=== PATIENT | male | born 1955 | race Caucasian/White ===

== ENCOUNTER 2016-10-12 17:32 | Observation (INO) ==
[~2016-10-12 17:32] MED LIST: *HR* Propofol 200 MG/20 ML VIAL IVP ONE; Lidocaine -MPF 2% 5 ML VIAL INFILT ONE
[2016-10-12] MEDS ORDERED: 0.9 % Sodium Chloride 1,000 ML IVC ONE (18:00)
--- NOTE | 2016-10-12 18:10 | Emergency Department Note ---
Disposition Clinical Impression: Lactic acidosis, Leukocytosis GI bleed Qualifiers: GI bleed type/associated pathology: unspecified gastrointestinal hemorrhage type Qualified Code(s): K92.2 - Gastrointestinal hemorrhage, unspecified Disposition: Admitted As Inpatient Condition: Serious Referrals: Bryce Jones DO [Primary Care Provider] - Forms: ED Satisfaction Letter Time of Disposition: 20:12 SOB HPI - General Chief Complaint: ED Shortness of Breath/Dyspnea Stated Complaint: SHUBHAM/ Blood in stool Time Seen by Provider: 10/12/16 17:40 Source: patient Mode of arrival: ambulatory Limitations: no limitations Nursing Notes Reviewed: Yes Vital Signs Reviewed: Yes - History of Present Illness 61-year-old male with shortness of breath for the last day. Patient states that he has been worsening shortness of breath, cough and wheeze. Patient has a history of COPD. Patient also states that he was diaphoretic today. 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 Patient is also had a history of internal hemorrhoids. Patient denies chest pain abdominal pain, does not shortness of breath even with minimal exertion. Denies fevers chills or weight loss. Pt Subjective Complaint: shortness of breath Onset (ago): hour(s) - Related Data Home Medications Medication Instructions Recorded Confirmed Albuterol Sulfate [Albuterol 2 puff IH Q4HR PRN 03/16/16 09/21/16 Inhaler] Amlodipine Besylate 10 mg PO DAILY 03/16/16 09/21/16 Azelastine 0.1% Nasal [place] 1 spray NS BID 03/16/16 09/21/16 [Astelin] Budesonide/Formoterol 160/4.5 2 puff IH BIDR 03/16/16 09/21/16 [Symbicort 160/4.5] Cetirizine HCl [Zyrtec] 10 mg PO DAILY 03/16/16 09/21/16 ClonazePAM [Klonopin] 0.5 mg PO BID PRN 03/16/16 09/21/16 Docusate [Colace] 100 mg PO BID PRN 03/16/16 09/21/16 Ergocalciferol (VITAMIN D2) 400 unit PO DAILY 03/16/16 09/21/16 [Vitamin D] Esomeprazole Magnesium [Nexium] 40 mg PO BID 03/16/16 09/21/16 Fluticasone Propionate Nasal 100 mcg NS DAILY 03/16/16 09/21/16 [Flonase] Ketoconazole Shampoo [Nizoral 1 appl TP TID 03/16/16 09/21/16 Shampoo] Metoclopramide [Reglan] 10 mg PO BID 03/16/16 09/21/16 Polyethylene Glycol 3350 [MiraLAX] 17 gm PO DAILY 03/16/16 09/21/16 Psyllium Seed (with Sugar) 575 gm PO DAILY 03/16/16 09/21/16 [Metamucil Powder] Roflumilast [Daliresp] 500 mcg PO DAILY 03/16/16 09/21/16 Sodium Chloride [[place] Saline] 1 spray NS BID PRN 03/16/16 09/21/16 Albuterol Neb [Proventil Neb] 2.5 mg IH Q2-4H PRN 09/21/16 09/21/16 Previous Rx's Medication Instructions Recorded Levofloxacin [Levaquin] 500 mg PO DAILY #10 tablet 09/19/16 Azelastine 0.1% Nasal [place] 1 spray NS BID #1 bottle 09/30/16 [Astelin] GuaiFENesin ER [Mucinex] 1,200 mg PO BID PRN #40 tbbp.12hr 09/30/16 Metoprolol [Lopressor] 12.5 mg PO BID #30 tablet 09/30/16 Montelukast [Singulair] 10 mg PO HS #30 tablet 09/30/16 PredniSONE 10 mg PO DAILY #41 tablet 09/30/16 Allergies Allergy/AdvReac Type Severity Reaction Status Date / Time morphine Allergy Difficulty Verified 09/17/16 08:27 Breathing sulfamethoxazole Allergy Hives Verified 03/16/16 17:11 [From Bactrim] trimethoprim [From Bactrim] Allergy Hives Verified 03/16/16 17:11 aspirin AdvReac Nausea Verified 03/16/16 17:11 codeine AdvReac Nausea Verified 03/16/16 17:11 Review of Systems: A 14 point ROS was obtained and was negative except as per below or as documented in the HPI. Constitutional: Denies: fever, chills, weakness, weight change Eyes: Denies: eye pain, eye discharge, vision change ENT: Denies: ear pain, throat pain, hearing loss, epistaxis, congestion, Cardiovascular: Denies: chest pain, palpitations, dyspnea on exertion, edema, syncope Respiratory: cough, dyspnea, wheezes Denies: , hemoptysis, stridor Gastrointestinal: hematochezia Denies: abdominal pain, nausea, vomiting. diarrhea, constipation, hematemesis, Genitourinary: Denies: urgency, dysuria, frequency, hematuria Musculoskeletal: Denies: back pain, neck pain, arthralgia, myalgia Integumentary: Denies: rash, abrasion, lesions Neurological: Denies: headache, weakness, numbness, paresthesias, confusion, abnormal gait Psychiatric: Denies: anxiety, depression, suicidal thoughts, homicidal thoughts , Endocrine: Denies: fatigue Hematological/Lymphatic: Denies: easy bleeding, easy bruising Allergic/Immunologic: Denies: facial swelling, urticaria All systems ED: reviewed and negative except as stated. Past Medical History - Past Medical History Attestation: Yes The following information was validated with the patient. Source: patient Medical history: Reports: COPD, GERD, hypertension Surgical history: Reports: herniorrhaphy, other Psychiatric history: Reports: anxiety, depression - Social History Smoking Status: Former smoker Smokeless Tobacco Status: No Alcohol use: Reports: rarely Drug use: Reports: none Physical Exam General: alert and oriented, in NAD, appears stated age, is pleasant and cooperative to exam Head: NCAT, no lesions Eyes: sclera anicteric, conjunctiva normal, PERRLA bilaterally, EOMI Bilaterally Ears: normal inspection, external ear wnl Nose: nasal septum nondeviated, sinuses nontender Throat: good dentition, mucous membranes moist Neck: no lymphadenopathy, trachea midline no deviation, no JVD Resp: CTA bilaterally, no resp distress, symmetric chest rise, no wheezes, rales , or rhonchi bilaterally CV: RRR, normal S1 and S2, no m/g/r, Pulses +2 Rad, +2 DP/PT Abdomen: Soft, NTND, no hepatosplenomegaly, no hernias, Negative Rovsing's sign , Negative Friend's sign Rectal: No evidence of bleeding internal or external hemorrhoids. stool clear, guaiac pending Back: normal inspection, no tenderness to palpation, Negative CVA tenderness bilaterally Neuro: A&O3, CN II-XII grossly intact bilaterally, no motor or sensory deficits bilaterally, gait normal, GCS 15 [id number] Ext: normal inspection, symmetric Active and Passive ROM UE and LE bilaterally , no pedal edema bilaterally Psych: normal mood, normal affect Skin: No rashes, skin warm, dry, intact Course Course Narrative: 61-year-old male with shortness of breath, this is with COPD exacerbation, versus pneumonia we will workup accordingly, also bright red blood per rectum, currently he is mildly tachycardic, plan admit to medicine service given bright red blood. Type and screen ordered, workup pending, IV fluids started. - Reevaluation(s) Reevaluation #1: ADmitted to Dr Quiles in stable condiiton. Time: 20:10 Vital Signs Temperature 97.0 F L 10/12/16 17:33 Pulse Rate 120 10/12/16 17:33 Respiratory Rate 26 10/12/16 17:33 Blood Pressure 163/91 10/12/16 17:33 O2 Sat by Pulse Oximetry 96 10/12/16 17:33 Temperature 97.0 F L 10/12/16 17:33 Pulse Rate 102 10/12/16 19:29 Respiratory Rate 18 10/12/16 19:29 Blood Pressure 138/75 10/12/16 19:29 O2 Sat by Pulse Oximetry 94 L 10/12/16 19:29 Oxygen Delivery Oxygen Delivery Room Air Shortness of Breath/Dyspnea - [facility] Narrative Medical decision making narrative: 61-year-old male with tachycardia, lactic acidosis likely from GI bleed, admitted to medicine service 2 L of fluid given type and screen, however we will withhold antibiotic at this time given no source of infection, plan to trend hemoglobins, evaluate for cause of bleeding in the hospital, this time he did have heme occult blood positive in his stool, and since his bleed was recently do not expect to see lobe and a dropped yet. Her nares fairly stable blood pressure tachycardia did improve after fluid bolus 2 L. - Differential Diagnosis Likely: acute exacerbation of chronic obstructive airways disease, congestive heart failure, pneumonia, asthma with exacerbation, pulmonary embolism - Medical Records Medical records reviewed: Yes I reviewed the patient's medical records. - Lab Data Result diagrams: 10/12/16 18:16 10/12/16 18:16 Lab Results 10/12/16 10/12/16 10/12/16 Range/Units 18:16 18:16 18:16 WBC 14.6 H (4.3-11.1) K/mcL RBC 4.73 (4.19-5.50) M/mcL Hgb 12.9 (12.9-16.9) g/dL Hct 39.2 (37.5-50.1) % MCV 82.9 L (83.0-100.0) fL MCH 27.3 L (28.0-33.3) pg MCHC 32.9 (31.6-35.5) g/dL RDW 16.3 H (11.5-14.5) % Plt Count 238 (140-400) K/mcL MPV 8.7 L (9.4-12.4) fL Immature Gran % 1.6 (0-4) % Seg Neutrophils % 80.6 % Lymphocytes % 13.0 % Monocytes % 4.0 % Eosinophils % 0.5 % Basophils % 0.3 % Neutrophils # 11.8 H (1.6-8.9) K/mcL Lymphocytes # 1.9 (0.6-4.6) K/mcL Monocytes # 0.6 (0.0-1.3) K/mcL Eosinophils # 0.1 (0.0-0.6) K/mcL Basophils # 0.1 (0.0-0.2) K/mcL PT 10.2 (9.4-12.1) Seconds INR 1.0 APTT 38.9 H (26.0-36.0) Seconds Sodium 140 (136-145) mEq/L Potassium 4.3 (3.5-4.5) mEq/L Chloride 105 (98-109) mEq/L Carbon Dioxide 23 (19-29) mEq/L BUN 25 (8-26) mg/dL Creatinine 1.15 (0.72-1.25) mg/dL Est GFR ( Amer) > 60 (> 60) Est GFR (Non-Af Amer) > 60 (> 60) BUN/Creatinine Ratio 22 (6-26) Glucose 150 H (70-99) mg/dL Calculated Osmolality 297 (280-300) Lactic Acid (0.5-2.2) mmol/L Calcium 9.8 (8.6-10.8) mg/dL Troponin I (0-0.03) ng/mL B-Natriuretic Peptide (0-100) pg/mL Urine Color (Yellow) Urine Clarity (Clear) Urine pH (5.0-8.0) pH Units Ur Specific [place] (1.010-1.025) Urine Protein (Neg-Trace) mg/dL Urine Glucose (UA) (Normal) mg/dL Urine Ketones (Negative) mg/dL Urine Blood (Negative) Urine Nitrite (Negative) Urine Bilirubin (Negative) Urine Urobilinogen (Normal) mg/dL Ur Leukocyte Esterase (Negative) Urine Microscopic RBC (0-3) per hpf Urine Microscopic WBC Ur Culture Indicated? (NO) Stool Occult Blood (Negative) Blood Type Antibody Screen 10/12/16 10/12/16 10/12/16 Range/Units 18:16 18:16 18:16 WBC (4.3-11.1) K/mcL RBC (4.19-5.50) M/mcL Hgb (12.9-16.9) g/dL Hct (37.5-50.1) % MCV (83.0-100.0) fL MCH (28.0-33.3) pg MCHC (31.6-35.5) g/dL RDW (11.5-14.5) % Plt Count (140-400) K/mcL MPV (9.4-12.4) fL Immature Gran % (0-4) % Seg Neutrophils % % Lymphocytes % % Monocytes % % Eosinophils % % Basophils % % Neutrophils # (1.6-8.9) K/mcL Lymphocytes # (0.6-4.6) K/mcL Monocytes # (0.0-1.3) K/mcL Eosinophils # (0.0-0.6) K/mcL Basophils # (0.0-0.2) K/mcL PT (9.4-12.1) Seconds INR APTT (26.0-36.0) Seconds Sodium (136-145) mEq/L Potassium (3.5-4.5) mEq/L Chloride (98-109) mEq/L Carbon Dioxide (19-29) mEq/L BUN (8-26) mg/dL Creatinine (0.72-1.25) mg/dL Est GFR ( Amer) (> 60) Est GFR (Non-Af Amer) (> 60) BUN/Creatinine Ratio (6-26) Glucose (70-99) mg/dL Calculated Osmolality (280-300) Lactic Acid 2.8 H (0.5-2.2) mmol/L Calcium (8.6-10.8) mg/dL Troponin I 0.01 (0-0.03) ng/mL B-Natriuretic Peptide < 10 (0-100) pg/mL Urine Color (Yellow) Urine Clarity (Clear) Urine pH (5.0-8.0) pH Units Ur Specific [place] (1.010-1.025) Urine Protein (Neg-Trace) mg/dL Urine Glucose (UA) (Normal) mg/dL Urine Ketones (Negative) mg/dL Urine Blood (Negative) Urine Nitrite (Negative) Urine Bilirubin (Negative) Urine Urobilinogen (Normal) mg/dL Ur Leukocyte Esterase (Negative) Urine Microscopic RBC (0-3) per hpf Urine Microscopic WBC Ur Culture Indicated? (NO) Stool Occult Blood (Negative) Blood Type Antibody Screen 10/12/16 10/12/16 10/12/16 Range/Units 18:16 18:55 19:19 WBC (4.3-11.1) K/mcL RBC (4.19-5.50) M/mcL Hgb (12.9-16.9) g/dL Hct (37.5-50.1) % MCV (83.0-100.0) fL MCH (28.0-33.3) pg MCHC (31.6-35.5) g/dL RDW (11.5-14.5) % Plt Count (140-400) K/mcL MPV (9.4-12.4) fL Immature Gran % (0-4) % Seg Neutrophils % % Lymphocytes % % Monocytes % % Eosinophils % % Basophils % % Neutrophils # (1.6-8.9) K/mcL Lymphocytes # (0.6-4.6) K/mcL Monocytes # (0.0-1.3) K/mcL Eosinophils # (0.0-0.6) K/mcL Basophils # (0.0-0.2) K/mcL PT (9.4-12.1) Seconds INR APTT (26.0-36.0) Seconds Sodium (136-145) mEq/L Potassium (3.5-4.5) mEq/L Chloride (98-109) mEq/L Carbon Dioxide (19-29) mEq/L BUN (8-26) mg/dL Creatinine (0.72-1.25) mg/dL Est GFR ( Amer) (> 60) Est GFR (Non-Af Amer) (> 60) BUN/Creatinine Ratio (6-26) Glucose (70-99) mg/dL Calculated Osmolality (280-300) Lactic Acid (0.5-2.2) mmol/L Calcium (8.6-10.8) mg/dL Troponin I (0-0.03) ng/mL B-Natriuretic Peptide (0-100) pg/mL Urine Color Yellow (Yellow) Urine Clarity Clear (Clear) Urine pH 6.0 (5.0-8.0) pH Units Ur Specific [place] 1.025 (1.010-1.025) Urine Protein Negative (Neg-Trace) mg/dL Urine Glucose (UA) Normal (Normal) mg/dL Urine Ketones Negative (Negative) mg/dL Urine Blood Small H (Negative) Urine Nitrite Negative (Negative) Urine Bilirubin Negative (Negative) Urine Urobilinogen Normal (Normal) mg/dL Ur Leukocyte Esterase Negative (Negative) Urine Microscopic RBC 0-3 (0-3) per hpf Urine Microscopic WBC Test Not Performed Ur Culture Indicated? NO (NO) Stool Occult Blood Positive A (Negative) Blood Type O POSITIVE Antibody Screen NEGATIVE - Radiology Data Chest X-Ray 10/12/16 18:00 IMPRESSION: No acute cardiopulmonary process identified. D/ / Fran Bagley MD / Fran Bagley MD Interpreting Provider: Fran Bagley MD - EKG Data EKG attestation: Yes I reviewed and interpreted this EKG. EKG shows normal: Reports: sinus rhythm Rate: Reports: tachycardia (105 bpm) Rhythm: Reports: NSR ( no ST segment elevations or depressions.)
[2016-10-12] MEDS ORDERED: Ipratropium/Albuterol Neb 3 ML IH ONE (18:12)
[2016-10-12] MEDS ORDERED: methylPREDNISolone 125 MG/2 ML VIAL IVP ONE (18:13)
[2016-10-12 18:26] LABS: Basophils # 0.1 K/mcL (0.0-0.2); Basophils % 0.3 %; Eosinophils # 0.1 K/mcL (0.0-0.6); Eosinophils % 0.5 %; Hematocrit 39.2 % (37.5-50.1); Hemoglobin 12.9 g/dL (12.9-16.9); Immature Granulocytes % 1.6 % (0-4); Lymphocytes # 1.9 K/mcL (0.6-4.6); Mean Corpuscular HGB Conc 32.9 g/dL (31.6-35.5); Mean Corpuscular Hemoglobin 27.3 pg (28.0-33.3); Mean Corpuscular Volume 82.9 fL (83.0-100.0); Mean Platelet Volume 8.7 fL (9.4-12.4); Monocytes # 0.6 K/mcL (0.0-1.3); Neutrophils # 11.8 K/mcL (1.6-8.9); Platelet Count 238 K/mcL (140-400); Red Blood Count 4.73 M/mcL (4.19-5.50); Red Cell Distribution Width 16.3 % (11.5-14.5); Segmented Neutrophils % 80.6 %
--- NOTE | 2016-10-12 18:27 | Emergency Department Note ---
Disposition Clinical Impression: GI bleed, Lactic acidosis, Leukocytosis Disposition: Admitted As Inpatient Condition: Serious General Adult HPI - General Chief complaint: ED Shortness of Breath/Dyspnea Stated complaint: SHUBHAM/ Blood in stool - History of Present Illness Pain Scale: 0 - Related Data Home Medications Medication Instructions Recorded Confirmed Albuterol Sulfate [Albuterol 2 puff IH Q4HR PRN 03/16/16 10/12/16 Inhaler] Amlodipine Besylate 10 mg PO DAILY 03/16/16 10/12/16 Azelastine 0.1% Nasal [place] 1 spray NS BID 03/16/16 10/12/16 [Astelin] Budesonide/Formoterol 160/4.5 2 puff IH BIDR 03/16/16 10/12/16 [Symbicort 160/4.5] Cetirizine HCl [Zyrtec] 10 mg PO DAILY 03/16/16 10/12/16 ClonazePAM [Klonopin] 1 mg PO BID PRN 03/16/16 10/12/16 Docusate [Colace] 100 mg PO BID PRN 03/16/16 10/12/16 Ergocalciferol (VITAMIN D2) 400 unit PO DAILY 03/16/16 10/12/16 [Vitamin D] Esomeprazole Magnesium [Nexium] 40 mg PO BID 03/16/16 10/12/16 Fluticasone Propionate Nasal 100 mcg NS DAILY 03/16/16 10/12/16 [Flonase] Ketoconazole Shampoo [Nizoral 1 appl TP TID 03/16/16 10/12/16 Shampoo] Polyethylene Glycol 3350 [MiraLAX] 17 gm PO DAILY 03/16/16 10/12/16 Psyllium Seed (with Sugar) 575 gm PO DAILY 03/16/16 10/12/16 [Metamucil Powder] Roflumilast [Daliresp] 500 mcg PO DAILY 03/16/16 10/12/16 Sodium Chloride [[place] Saline] 1 spray NS BID PRN 03/16/16 10/12/16 Albuterol Neb [Proventil Neb] 2.5 mg IH Q2-4H PRN 09/21/16 10/12/16 Previous Rx's Medication Instructions Recorded GuaiFENesin ER [Mucinex] 1,200 mg PO BID PRN #40 tbbp.12hr 12/22/16 Metoprolol [Lopressor] 12.5 mg PO BID #30 tablet 09/30/16 Montelukast [Singulair] 10 mg PO HS #30 tablet 09/30/16 PredniSONE 10 mg PO DAILY #41 tablet 09/30/16 Allergies Allergy/AdvReac Type Severity Reaction Status Date / Time morphine Allergy Difficulty Verified 09/17/16 08:27 Breathing sulfamethoxazole Allergy Rash Verified 10/12/16 20:21 [From Bactrim] trimethoprim [From Bactrim] Allergy Rash Verified 10/12/16 20:21 aspirin AdvReac Nausea Verified 03/16/16 17:11 codeine AdvReac Nausea Verified 03/16/16 17:11 Past Medical History - Past Medical History Medical history: Reports: COPD, GERD, hypertension Surgical history: Reports: herniorrhaphy, other Psychiatric history: Reports: anxiety, depression - Social History Smoking Status: Former smoker Smokeless Tobacco Status: No Alcohol use: Reports: rarely Drug use: Reports: none Course - Reevaluation(s) Reevaluation #1: I saw the patient with the resident, Dr. Singh. Patient presents with bright red blood per rectum about half hour prior to my seeing him. He got sweaty with the episode. He had a little bit of abdominal cramping prior to that and thought he was in have diarrhea. He looked in the toilet bowl was filled with blood. He has not had any further bowel movements since. His examination shows no belly tenderness to palpation. He does have history of internal hemorrhoids. This could be diverticular bleeding or internal hemorrhoid bleeding is unclear. His vital signs are fine. It still pretty early in the course to get a true assessment of his hemoglobin. He will need to be admitted for observation. Time: 18:26 Vital Signs Temperature 97.0 F L 10/12/16 17:33 Pulse Rate 120 10/12/16 17:33 Respiratory Rate 26 10/12/16 17:33 Blood Pressure 163/91 10/12/16 17:33 O2 Sat by Pulse Oximetry 96 10/12/16 17:33 Temperature 97.7 F 10/14/16 06:56 Pulse Rate 85 10/14/16 06:56 Respiratory Rate 18 10/14/16 06:56 Blood Pressure 129/72 10/14/16 06:56 O2 Sat by Pulse Oximetry 97 10/14/16 07:22 Oxygen Delivery Oxygen Delivery Nasal Cannula Medical Decision Making - Lab Data Result diagrams: 10/14/16 04:04 10/14/16 04:04 Lab Results 10/12/16 10/12/16 10/12/16 Range/Units 18:16 18:16 18:16 WBC 14.6 H (4.3-11.1) K/mcL RBC 4.73 (4.19-5.50) M/mcL Hgb 12.9 (12.9-16.9) g/dL Hct 39.2 (37.5-50.1) % MCV 82.9 L (83.0-100.0) fL MCH 27.3 L (28.0-33.3) pg MCHC 32.9 (31.6-35.5) g/dL RDW 16.3 H (11.5-14.5) % Plt Count 238 (140-400) K/mcL MPV 8.7 L (9.4-12.4) fL Immature Gran % 1.6 (0-4) % Seg Neutrophils % 80.6 % Lymphocytes % 13.0 % Monocytes % 4.0 % Eosinophils % 0.5 % Basophils % 0.3 % Neutrophils # 11.8 H (1.6-8.9) K/mcL Lymphocytes # 1.9 (0.6-4.6) K/mcL Monocytes # 0.6 (0.0-1.3) K/mcL Eosinophils # 0.1 (0.0-0.6) K/mcL Basophils # 0.1 (0.0-0.2) K/mcL PT 10.2 (9.4-12.1) Seconds INR 1.0 APTT 38.9 H (26.0-36.0) Seconds Sodium 140 (136-145) mEq/L Potassium 4.3 (3.5-4.5) mEq/L Chloride 105 (98-109) mEq/L Carbon Dioxide 23 (19-29) mEq/L BUN 25 (8-26) mg/dL Creatinine 1.15 (0.72-1.25) mg/dL Est GFR ( Amer) > 60 (> 60) Est GFR (Non-Af Amer) > 60 (> 60) BUN/Creatinine Ratio 22 (6-26) Glucose 150 H (70-99) mg/dL POC Glucose (58-89) Calculated Osmolality 297 (280-300) Lactic Acid (0.5-2.2) mmol/L Calcium 9.8 (8.6-10.8) mg/dL Troponin I (0-0.03) ng/mL B-Natriuretic Peptide (0-100) pg/mL Urine Color (Yellow) Urine Clarity (Clear) Urine pH (5.0-8.0) pH Units Ur Specific [place] (1.010-1.025) Urine Protein (Neg-Trace) mg/dL Urine Glucose (UA) (Normal) mg/dL Urine Ketones (Negative) mg/dL Urine Blood (Negative) Urine Nitrite (Negative) Urine Bilirubin (Negative) Urine Urobilinogen (Normal) mg/dL Ur Leukocyte Esterase (Negative) Urine Microscopic RBC (0-3) per hpf Urine Microscopic WBC Ur Culture Indicated? (NO) Stool Occult Blood (Negative) Blood Type Antibody Screen 10/12/16 10/12/16 10/12/16 Range/Units 18:16 18:16 18:16 WBC (4.3-11.1) K/mcL RBC (4.19-5.50) M/mcL Hgb (12.9-16.9) g/dL Hct (37.5-50.1) % MCV (83.0-100.0) fL MCH (28.0-33.3) pg MCHC (31.6-35.5) g/dL RDW (11.5-14.5) % Plt Count (140-400) K/mcL MPV (9.4-12.4) fL Immature Gran % (0-4) % Seg Neutrophils % % Lymphocytes % % Monocytes % % Eosinophils % % Basophils % % Neutrophils # (1.6-8.9) K/mcL Lymphocytes # (0.6-4.6) K/mcL Monocytes # (0.0-1.3) K/mcL Eosinophils # (0.0-0.6) K/mcL Basophils # (0.0-0.2) K/mcL PT (9.4-12.1) Seconds INR APTT (26.0-36.0) Seconds Sodium (136-145) mEq/L Potassium (3.5-4.5) mEq/L Chloride (98-109) mEq/L Carbon Dioxide (19-29) mEq/L BUN (8-26) mg/dL Creatinine (0.72-1.25) mg/dL Est GFR ( Amer) (> 60) Est GFR (Non-Af Amer) (> 60) BUN/Creatinine Ratio (6-26) Glucose (70-99) mg/dL POC Glucose (58-89) Calculated Osmolality (280-300) Lactic Acid 2.8 H (0.5-2.2) mmol/L Calcium (8.6-10.8) mg/dL Troponin I 0.01 (0-0.03) ng/mL B-Natriuretic Peptide < 10 (0-100) pg/mL Urine Color (Yellow) Urine Clarity (Clear) Urine pH (5.0-8.0) pH Units Ur Specific [place] (1.010-1.025) Urine Protein (Neg-Trace) mg/dL Urine Glucose (UA) (Normal) mg/dL Urine Ketones (Negative) mg/dL Urine Blood (Negative) Urine Nitrite (Negative) Urine Bilirubin (Negative) Urine Urobilinogen (Normal) mg/dL Ur Leukocyte Esterase (Negative) Urine Microscopic RBC (0-3) per hpf Urine Microscopic WBC Ur Culture Indicated? (NO) Stool Occult Blood (Negative) Blood Type Antibody Screen 10/12/16 10/12/16 10/12/16 Range/Units 18:16 18:42 18:55 WBC (4.3-11.1) K/mcL RBC (4.19-5.50) M/mcL Hgb (12.9-16.9) g/dL Hct (37.5-50.1) % MCV (83.0-100.0) fL MCH (28.0-33.3) pg MCHC (31.6-35.5) g/dL RDW (11.5-14.5) % Plt Count (140-400) K/mcL MPV (9.4-12.4) fL Immature Gran % (0-4) % Seg Neutrophils % % Lymphocytes % % Monocytes % % Eosinophils % % Basophils % % Neutrophils # (1.6-8.9) K/mcL Lymphocytes # (0.6-4.6) K/mcL Monocytes # (0.0-1.3) K/mcL Eosinophils # (0.0-0.6) K/mcL Basophils # (0.0-0.2) K/mcL PT (9.4-12.1) Seconds INR APTT (26.0-36.0) Seconds Sodium (136-145) mEq/L Potassium (3.5-4.5) mEq/L Chloride (98-109) mEq/L Carbon Dioxide (19-29) mEq/L BUN (8-26) mg/dL Creatinine (0.72-1.25) mg/dL Est GFR ( Amer) (> 60) Est GFR (Non-Af Amer) (> 60) BUN/Creatinine Ratio (6-26) Glucose (70-99) mg/dL POC Glucose 158 H (58-89) Calculated Osmolality (280-300) Lactic Acid (0.5-2.2) mmol/L Calcium (8.6-10.8) mg/dL Troponin I (0-0.03) ng/mL B-Natriuretic Peptide (0-100) pg/mL Urine Color Yellow (Yellow) Urine Clarity Clear (Clear) Urine pH 6.0 (5.0-8.0) pH Units Ur Specific [place] 1.025 (1.010-1.025) Urine Protein Negative (Neg-Trace) mg/dL Urine Glucose (UA) Normal (Normal) mg/dL Urine Ketones Negative (Negative) mg/dL Urine Blood Small H (Negative) Urine Nitrite Negative (Negative) Urine Bilirubin Negative (Negative) Urine Urobilinogen Normal (Normal) mg/dL Ur Leukocyte Esterase Negative (Negative) Urine Microscopic RBC 0-3 (0-3) per hpf Urine Microscopic WBC Test Not Performed Ur Culture Indicated? NO (NO) Stool Occult Blood (Negative) Blood Type O POSITIVE Antibody Screen NEGATIVE 10/12/16 Range/Units 19:19 WBC (4.3-11.1) K/mcL RBC (4.19-5.50) M/mcL Hgb (12.9-16.9) g/dL Hct (37.5-50.1) % MCV (83.0-100.0) fL MCH (28.0-33.3) pg MCHC (31.6-35.5) g/dL RDW (11.5-14.5) % Plt Count (140-400) K/mcL MPV (9.4-12.4) fL Immature Gran % (0-4) % Seg Neutrophils % % Lymphocytes % % Monocytes % % Eosinophils % % Basophils % % Neutrophils # (1.6-8.9) K/mcL Lymphocytes # (0.6-4.6) K/mcL Monocytes # (0.0-1.3) K/mcL Eosinophils # (0.0-0.6) K/mcL Basophils # (0.0-0.2) K/mcL PT (9.4-12.1) Seconds INR APTT (26.0-36.0) Seconds Sodium (136-145) mEq/L Potassium (3.5-4.5) mEq/L Chloride (98-109) mEq/L Carbon Dioxide (19-29) mEq/L BUN (8-26) mg/dL Creatinine (0.72-1.25) mg/dL Est GFR ( Amer) (> 60) Est GFR (Non-Af Amer) (> 60) BUN/Creatinine Ratio (6-26) Glucose (70-99) mg/dL POC Glucose (58-89) Calculated Osmolality (280-300) Lactic Acid (0.5-2.2) mmol/L Calcium (8.6-10.8) mg/dL Troponin I (0-0.03) ng/mL B-Natriuretic Peptide (0-100) pg/mL Urine Color (Yellow) Urine Clarity (Clear) Urine pH (5.0-8.0) pH Units Ur Specific Pfeifer (1.010-1.025) Urine Protein (Neg-Trace) mg/dL Urine Glucose (UA) (Normal) mg/dL Urine Ketones (Negative) mg/dL Urine Blood (Negative) Urine Nitrite (Negative) Urine Bilirubin (Negative) Urine Urobilinogen (Normal) mg/dL Ur Leukocyte Esterase (Negative) Urine Microscopic RBC (0-3) per hpf Urine Microscopic WBC Ur Culture Indicated? (NO) Stool Occult Blood Positive A (Negative) Blood Type Antibody Screen Attestation Statement - Attestation Attestation: I, Dr. Wiley, examined this patient [id number] and my medical decision- making was reviewed with Dr. Singh, Resident Physician. I agree with the documented findings, disposition and treatment plan as described except to the extent set forth below. Please see my progress note for details.
[2016-10-12 18:31] LABS: Prothrombin Time 10.2 Seconds (9.4-12.1)
[2016-10-12 18:34] LABS: Activated Partial Thrombo Time 38.9 Seconds (26.0-36.0)
[2016-10-12 18:45] LABS: BUN/Creatinine Ratio 22 (6-26); Blood Urea Nitrogen 25 mg/dL (8-26); Calcium 9.8 mg/dL (8.6-10.8); Carbon Dioxide 23 mEq/L (19-29); Chloride 105 mEq/L (98-109); Glucose 150 mg/dL (70-99); Osmolality,Calculated 297 (280-300); Potassium 4.3 mEq/L (3.5-4.5); Sodium 140 mEq/L (136-145); eGFR For African Americans > 60 (> 60); eGFR For Non-African Americans > 60 (> 60)
[2016-10-12] MEDS ORDERED: 0.9 % Sodium Chloride 1,000 ML IV ONE (19:02)
[2016-10-12 19:07] LABS: Bilirubin,Urine Negative (Negative); Blood,Urine Small (Negative); Clarity,Urine Clear (Clear); Color,Urine Yellow (Yellow); Glucose,Urine (UA) Normal (Normal); Ketones,Urine Negative (Negative); Leukocyte Esterase,Urine Negative (Negative); Nitrite,Urine Negative (Negative); Protein,Urine Negative (Neg-Trace); Specific Gravity,Urine 1.025 (1.010-1.025); Urobilinogen,Urine Normal (Normal)
[2016-10-12 19:17] LABS: RBC,Urine 0-3 per hpf (0-3)
[2016-10-12] MEDS ORDERED: 0.9 % Sodium Chloride 1,000 ML IVC SCH (21:15)
[2016-10-12] MEDS ORDERED: Albuterol 2.5 MG/3 ML NEBULIZER IH PRN (21:22)
--- NOTE | 2016-10-12 21:35 | Internal Med History&Physical ---
<Oz Liang - Last Filed: 10/13/16 02:26> Date of Encounter: 10/13/16 Time of Encounter: 20:50 Assessment and Plan (1) GI bleed Current visit: Yes Status: Acute R/O ischemic colitis. Hx of polyps, diverticulosis, SBO. Ordered STAT CT pelvus/abd. Hbg 12.9, will trend H/H. Start Levaquin, Flagyl. Currently NPO. Consult GI. Qualifiers: GI bleed type/associated pathology: unspecified gastrointestinal hemorrhage type Qualified Code(s): K92.2 - Gastrointestinal hemorrhage, unspecified (2) Sepsis Current visit: Yes Status: Suspected R/O sepsis, criteria met with leukocytosis, tachypnea, tachycardia, elevated lactate. Blood cultures ordered. Received IVF bolus in the ED, continue IVF. Start Levaquin, Flagyl. Qualifiers: Sepsis type: sepsis due to unspecified organism Qualified Code(s): A41.9 - Sepsis, unspecified organism (3) Lactic acidosis Current visit: Yes Status: Acute Currently 2.8, will recheck. See above plan. (4) Leukocytosis Current visit: Yes Status: Acute WBC of 14.6. Afebrile. See above plan. Qualifiers: Leukocytosis type: unspecified Qualified Code(s): D72.829 - Elevated white blood cell count, unspecified (5) Acute exacerbation of chronic obstructive airways disease Current visit: No Status: Acute Patient recently discharged with COPD exacerbation. Was continuing Levaquin and prednisone. Continue home mediations and continue albuterol Q4H scheduled. CXR negative for acute process. Supplemental O2 to maintain saturation greater than 92%. (6) Acute and chronic respiratory failure with hypoxia Current visit: No Status: Acute Likely secondary to COPD exacerbation vs acute blood loss. Patient currently stable on 2L via NC. See above plan. (7) DVT prophylaxis Current visit: No Status: Acute EPCDs. Internal Medicine - H&P: HPI Chief complaint: dyspneic, blood in stool Admitted From: Emergency Dept Plans for Post Hospital Care: Home History of present illness: Mr. Herring is a 61 year old male that presented to the ED for worsening dyspnea today with one episode of bright red blood per rectum this evening. Patient states he was recently admitted approx 2 weeks ago for COPD exacerbation , had returned home with home health not returned to baseline. Though he states when he got up today he was short of breath with exertion and sweating. He states that his stomach was upset and he felt like he was going to have diarrhea , in the bathroom he states he thought he passed watery diarrhea but when he checked the toilet there was no stool, only bright red blood. Patient also notes dizziness at that time. Patient denies syncope, nausea, vomiting, denied abdominal pain originally (now has some lower abd/suprapubic tenderness). Patient has a pertinent history of colonoscopy approx 3 years ago he states he had polyps and diverticulosis on exam. Patient also has history of SBO in March 2016, and in 2013. Stool Occult blood positive in ED. Past Med Surg Social Fam HX - Past Medical History Medical history: COPD, GERD, hypertension Psychiatric history: anxiety, depression - Past Surgical History Surgical History: herniorrhaphy, other - Social History Smoking Status: Former smoker Smokeless Tobacco Status: No Alcohol use: rarely Drug use: none - Family History Father Living Status: Mother Living Status: Hx Family Cardiac Disorders: Yes ([place]) Hx Family Cancer: Yes (lung Cancer) Sister Living Status: Internal Medicine - H&P: Meds Albuterol Sulfate [Albuterol Inhaler] 2 puff IH Q4HR PRN 03/16/16 [History] Amlodipine Besylate 10 mg PO DAILY 03/16/16 [History] Azelastine 0.1% Nasal Uledi [Astelin] 1 spray NS BID 03/16/16 [History] Budesonide/Formoterol 160/4.5 [Symbicort 160/4.5] 2 puff IH BIDR 03/16/16 [ History] Cetirizine HCl [Zyrtec] 10 mg PO DAILY 03/16/16 [History] ClonazePAM [Klonopin] 1 mg PO BID PRN 03/16/16 [History] Docusate [Colace] 100 mg PO BID PRN 03/16/16 [History] Ergocalciferol (VITAMIN D2) [Vitamin D] 400 unit PO DAILY 03/16/16 [History] Esomeprazole Magnesium [Nexium] 40 mg PO BID 03/16/16 [History] Fluticasone Propionate Nasal [Flonase] 100 mcg NS DAILY 03/16/16 [History] Ketoconazole Shampoo [Nizoral Shampoo] 1 appl TP TID 03/16/16 [History] Polyethylene Glycol 3350 [MiraLAX] 17 gm PO DAILY 03/16/16 [History] Psyllium Seed (with Sugar) [Metamucil Powder] 575 gm PO DAILY 03/16/16 [History] Roflumilast [Daliresp] 500 mcg PO DAILY 03/16/16 [History] Sodium Chloride [[place] Saline] 1 spray NS BID PRN 03/16/16 [History] Albuterol Neb [Proventil Neb] 2.5 mg IH Q2-4H PRN 09/21/16 [History] GuaiFENesin ER [Mucinex] 1,200 mg PO BID PRN #40 tbbp.12hr 09/30/16 [Rx] Metoprolol [Lopressor] 12.5 mg PO BID #30 tablet 09/30/16 [Rx] Montelukast [Singulair] 10 mg PO HS #30 tablet 09/30/16 [Rx] PredniSONE 10 mg PO DAILY #41 tablet 09/30/16 [Rx] Allergies morphine Allergy (Verified 09/17/16 08:27) Difficulty Breathing sulfamethoxazole [From Bactrim] Allergy (Verified 10/12/16 20:21) Rash trimethoprim [From Bactrim] Allergy (Verified 10/12/16 20:21) Rash aspirin Adverse Reaction (Verified 03/16/16 17:11) Nausea codeine Adverse Reaction (Verified 03/16/16 17:11) Nausea All Systems PM: A 10-system review of systems was performed and is negative for pertinent findings except as documented above in the HPI. - Constitutional Constitutional: excessive sweating, fatigue - EENT Eyes: no change in vision, no loss of vision Ears: no decreased hearing Nose, mouth and throat: no dysphagia - Cardiovascular Cardiovascular ROS IM: dyspnea on exertion, edema, lightheadedness, no chest pain, no syncope - Respiratory Respiratory: cough, dyspnea on exertion, no change in phlegm color - Gastrointestinal Gastrointestinal: abdominal pain, cramping, excessive flatus, hematochezia, no constipation, no diarrhea, no dysphagia, no melena, no nausea, no vomiting - Genitourinary Genitourinary ROS male: no dysuria, no flank pain - Musculoskeletal Musculoskeletal ROS IM: muscle weakness (states arms feel heavy), no back pain - Integumentary Integumentary IM: no new lesions, no rash - Neurological Neurological ROS: dizziness, no loss of vision, no paresthesias - Constitutional Vitals: Temp Pulse Resp BP Pulse Ox 97.0 F L 102 18 135/75 94 L 10/12/16 17:33 10/12/16 19:29 10/12/16 20:51 10/12/16 20:51 10/12/16 19:29 General appearance: Present: mild distress, A&O X 3, pleasant, obese, answers questions appropriately - Head Head exam: Present: atraumatic, normocephalic - Eye Eye exam: Present: EOMI, PERRL, conjuntiva pink, sclera anicteric Pupils: Present: PERRL - Neck Neck exam general surgery: Present: full ROM, tenderness (mild tenderness on palpation, states he has had spasms.), supple, trachea midline. Absent: lymphadenopathy - Respiratory Respiratory exam: Present: decreased breath sounds, tachypnea. Absent: accessory muscle use, chest wall tenderness, rales, respiratory distress, rhonchi, wheezes - Cardiovascular Cardiovascular exam: Present: RRR, +S1, +S2. Absent: diastolic murmur, gallop, rubs, systolic murmur - GI/Abdominal GI/Abdominal exam: Present: normal bowel sounds, soft, tenderness (suprapubic tenderness on palpation.). Absent: diminished bowel sounds, distended, firm, guarding - Extremities Exam Extremities exam: Present: calf tenderness (mild L leg tenderness, more so tender over tendon, recent spasming), pedal edema (trace pretibial edema R leg, history of b/l edema), warm. Absent: cyanotic Additional comments: Pedal pulses 2+ bilaterally. - Neurological Exam Neurological exam: Present: alert, oriented X3, no focal deficits. Absent: facial droop, speech deficit - Skin Skin exam: Present: dry, intact Internal Med - H&P Results - Labs CBC & Chem 7: 10/13/16 01:25 10/12/16 18:16 <Elena Quiles - Last Filed: 10/13/16 12:50> Date of Encounter: 10/13/16 Internal Medicine - H&P: HPI History of present illness: Mr. Herring is a 61 year old male All Systems PM: A 10-system review of systems was performed and is negative for pertinent findings except as documented above in the HPI. - Constitutional Vitals: Temp Pulse Resp BP Pulse Ox 97.6 F 87 18 148/73 97 10/13/16 10:00 10/13/16 10:00 10/13/16 10:49 10/13/16 10:00 10/13/16 10:49 Internal Med - H&P Results - Labs CBC & Chem 7: 10/13/16 07:38 10/12/16 18:16 Labs: Short CBC 10/13/16 10/13/16 10/13/16 Range/Units 01:25 01:25 07:38 WBC 13.0 H (4.3-11.1) K/mcL Hgb 12.1 L 12.1 L 11.8 L (12.9-16.9) g/dL Hct 38.4 37.8 36.2 L (37.5-50.1) % Plt Count 236 (140-400) K/mcL Neutrophils # 11.6 H (1.6-8.9) K/mcL - Impressions ITS Impressions Abdomen/Pelvis CT 10/12/16 22:30 IMPRESSION: 1. No acute findings identified in the abdomen and pelvis. D/ / 10/13/2016 07:02:08 Mateo Low MD / caitlyn Interpreting Provider: Mateo Low MD - Attending Attestation patient was independently seen and examined at bedside. Reported of feeling better and denied any SOB and abd pain during my evaluation. I have discussed the case and management plan with the resident physician, and agree with their assessment and plan.
[2016-10-12] MEDS: Budesonide/Formoterol 160/4.5 MDI IH SCH (22:14)
[2016-10-12] MEDS: 0.9 % Sodium Chloride 1,000 ML IVC SCH (23:25)
[2016-10-12] MEDS: MetroNIDAZOLE 500 MG/100 ML 500 MG/100 ML BAG IVPB SCH (23:27)
[2016-10-12] MEDS: Levofloxacin 750 MG/150 ML 750 MG/150 ML BAG IVPB SCH (23:28)
[2016-10-13] MEDS: clonazePAM 1 MG TABLET PO PRN (00:20)
[2016-10-13 01:39] LABS: Hematocrit 37.8 % (37.5-50.1); Hemoglobin 12.1 g/dL (12.9-16.9)
[2016-10-13 01:40] LABS: Basophils % 0.3 %; Eosinophils % 0.2 %; Hematocrit 38.4 % (37.5-50.1); Hemoglobin 12.1 g/dL (12.9-16.9); Immature Granulocytes % 2.2 % (0-4); Lymphocytes # 0.9 K/mcL (0.6-4.6); Lymphocytes % 6.6 %; Mean Corpuscular HGB Conc 31.5 g/dL (31.6-35.5); Mean Corpuscular Hemoglobin 26.4 pg (28.0-33.3); Mean Corpuscular Volume 83.8 fL (83.0-100.0); Mean Platelet Volume 8.7 fL (9.4-12.4); Monocytes # 0.2 K/mcL (0.0-1.3); Monocytes % 1.5 %; Neutrophils # 11.6 K/mcL (1.6-8.9); Platelet Count 236 K/mcL (140-400); Red Blood Count 4.58 M/mcL (4.19-5.50); Red Cell Distribution Width 16.4 % (11.5-14.5); Segmented Neutrophils % 89.2 %
[2016-10-13 01:54] LABS: % Iron Saturation 16 % (20-55); Iron 51 mcg/dL (65-175); Transferrin 223 mg/dL (174-364)
[2016-10-13 02:17] LABS: Ferritin 201 ng/ml (22-275)
[2016-10-13] MEDS: Pantoprazole 40 MG VIAL IVP SCH ×2 (05:03→18:36)
[2016-10-13] MEDS: MethylPREDNISolone 40 MG/ML VIAL IVP SCH ×3 (05:03→21:17)
[2016-10-13 07:59] LABS: Hematocrit 36.2 % (37.5-50.1); Hemoglobin 11.8 g/dL (12.9-16.9)
[2016-10-13] MEDS: amLODIPine 5 MG TABLET PO SCH (08:45)
[2016-10-13] MEDS: MetroNIDAZOLE 500 MG/100 ML 500 MG/100 ML BAG IVPB SCH ×2 (08:45→16:33)
[2016-10-13] MEDS: Loratadine 10 MG TABLET PO SCH (08:45)
--- NOTE | 2016-10-13 09:31 | Gastroenterology Consult Note ---
<Cole Ramirez Aura - Last Filed: 10/13/16 11:43> Date of Encounter: 10/13/16 Time of Encounter: 11:15 - Assessment and plan (1) GI bleed Current Visit: Yes Status: Acute Assessment and plan: FOBT positive in ED. Hgb 12.9 on admission, 11.8 this AM. Pt with BRBPR at home. Plan for colonoscopy tomorrow. Clear liquid diet today, no red or purple. NPO at midnight. If unable tolerate NuLytely please use MiraLAX prep. If not clear by 6 AM, give 2 tap water enemas. Qualifiers: GI bleed type/associated pathology: unspecified gastrointestinal hemorrhage type Qualified Code(s): K92.2 - Gastrointestinal hemorrhage, unspecified (2) Anemia Current Visit: No Status: Chronic Assessment and plan: Likely secondary to GI bleed. Hgb 12.9 on admission, 11.8 this AM. Iron 51. Continue to monitor CBC and transfuse PRBC as needed. Qualifiers: Anemia type: iron deficiency Iron deficiency anemia type: chronic blood loss Qualified Code(s): D50.0 - Iron deficiency anemia secondary to blood loss (chronic) (3) Fatty liver Current Visit: Yes Status: Acute Assessment and plan: CT A/P revealed fatty liver. Will complete liver work up. - Time Spent With Patient Total time spent is greater than 50% in coordination of care (as documented) at patient's floor/unit and/or counseling patient: GI History of Present Illness - Data of Consult Patient: new to practice Consult date: 10/13/16 Requesting Physician: Andrea Singh MD - Consult Narrative Reason for consult: Lower GI bleed History of present illness: Mr. Herring is a 61 year old male with PMHx of COPD, GERD, and HTN presented to the ED with worsening dyspnea and one episode of BRBPR. He reports having an "upset stomach" and thought he passed watery diarrhea, but when he checked, there was only bright red blood and no stool. He reports having "several episodes" of BRBPR since that first one yesterday. He reports having previous EGD and colonoscopy by Dr. Weeks. FOBT was positive in the ED. He denies abdominal pain, nausea, vomiting, melena, fever, chills, or weight loss. CT A/P revealed a fatty liver. Procedures: Colonoscopy 09/05/2013 Dr. Weeks with 6mm tubular adenoma of sigmoid colon and 6mm tubular adenoma hepatic flexure, internal hemorrhoids. EGD 01/10/2015 Dr. Weeks with medium hiatus hernia and chronic gastritis. NSAIDs: None Anticoagulation: None Past Med Surg Social Fam HX - Past Medical History Medical history: COPD, GERD, hypertension Psychiatric history: anxiety, depression - Past Surgical History Surgical History: herniorrhaphy, other - Social History Smoking Status: Former smoker Smokeless Tobacco Status: No Alcohol use: rarely Drug use: none - Family History Father Family Member Ethnicity: Non- Living Status: Age at : 76 Cause of : pancreatic cancer Hx Family Cancer: Yes Mother Adopted: No Family Member Ethnicity: Non- Living Status: Age at : 62 Cause of : heart attack Hx Family Cardiac Disorders: Yes ([place]) Hx Family Respiratory Disorders: No Hx Family Cancer: Yes (lung Cancer) Hx Family GI Disorders: No Hx Family Genitourinary Disorders: No Sister Living Status: - Gastrointestinal Gastrointestinal: Present: as per HPI - Constitutional Constitutional: as per HPI - EENT Eyes: as per HPI Ears: Present: as per HPI Nose, mouth and throat: Present: as per HPI - Cardiovascular Cardiovascular ROS: Present: as per HPI - Respiratory Respiratory IM: Present: as per HPI - Genitourinary Genitourinary: Absent: change in color, Urinary frequency - Neurological ROS Neurological GI: Present: as per HPI - Hematologic/Lymphatic Hematologic/Lymphatic pediatric: Present: as per HPI - Musculoskeletal Musculoskeletal ROS GI: Present: as per HPI - Integumentary Integumentary GI: Present: as per HPI - Psychiatric ROS Psychiatric GI: Present: as per HPI - Endocrine Endocrine IM: Present: as per HPI - Constitutional Vitals: Temp Pulse Resp BP Pulse Ox 97.5 F L 82 18 113/66 96 10/13/16 06:39 10/13/16 06:39 10/13/16 06:39 10/13/16 06:39 10/13/16 06:39 General appearance: Present: cooperative, A&O X 3, no acute distress, answers questions appropriately - Head Head exam: Present: atraumatic, normocephalic - Eye Eye exam: Present: normal appearance, sclera anicteric - ENT ENT exam: Present: mucous membranes moist - Neck Neck exam general surgery: Present: normal inspection, trachea midline - Respiratory Respiratory exam: Present: decreased breath sounds, CTAB. Absent: rales, rhonchi - Cardiovascular Cardiovascular exam: Present: RRR, +S1, +S2 - GI/Abdominal GI/Abdominal exam: Present: soft, no peritoneal signs. Absent: distended, firm , guarding, tenderness Additional comments: obese - Rectal Rectal exam: Present: deferred - Extremities Exam Extremities exam: Present: warm - Neurological Exam Neurological exam: Present: no focal deficits - Psychiatric Psychiatric exam: Present: normal affect, normal mood - Skin Skin exam: Present: dry, intact, normal color, warm Results - Labs CBC & Chem 7: 10/13/16 07:38 10/12/16 18:16 Labs: Last Result Calcium 9.8 mg/dL (8.6-10.8) 10/12/16 18:16 Iron 51 mcg/dL (65-175) L 10/13/16 01:25 % Saturation 16 % (20-55) L 10/13/16 01:25 Transferrin 223 mg/dL (174-364) 10/13/16 01:25 Ferritin 201 ng/ml (22-275) 10/13/16 01:25 Troponin I 0.01 ng/mL (0-0.03) 10/12/16 18:16 Stool Occult Blood Positive (Negative) A 10/12/16 19:19 Entire Visit Hgb 11.8 g/dL (12.9-16.9) L 10/13/16 07:38 Hct 36.2 % (37.5-50.1) L 10/13/16 07:38 PT 10.2 Seconds (9.4-12.1) 10/12/16 18:16 Ferritin 201 ng/ml (22-275) 10/13/16 01:25 - ABG ABG results: PT/INR, D-dimer PT 10.2 Seconds (9.4-12.1) 10/12/16 18:16 - Impressions Impressions Abdomen/Pelvis CT 10/12/16 22:30 IMPRESSION: 1. No acute findings identified in the abdomen and pelvis. D/ / 10/13/2016 07:02:08 Mateo Low MD / caitlyn Interpreting Provider: Mateo Low MD Consult Discharge Plan - Plan Referrals: Morelia Pierson MD [Partnered Physician] - 10/21/16 8:45 am Clemente Tyler DO [Resident] - 10/19/16 8:30 am <DesiShonna - Last Filed: 10/13/16 17:25> Date of Encounter: 10/13/16 Time of Encounter: 14:00 - Time Spent With Patient Total time spent is greater than 50% in coordination of care (as documented) at patient's floor/unit and/or counseling patient: GI History of Present Illness - Data of Consult Requesting Physician: Andrea Singh MD - Consult Narrative History of present illness: Mr. Herring is a 61 year old male - Constitutional Vitals: Temp Pulse Resp BP Pulse Ox 97.6 F 87 18 148/73 97 10/13/16 10:00 10/13/16 10:00 10/13/16 16:20 10/13/16 10:00 10/13/16 16:20 Results - Labs CBC & Chem 7: 10/13/16 07:38 10/13/16 12:44 Labs: Last Result Calcium 9.4 mg/dL (8.6-10.8) 10/13/16 12:44 Iron 51 mcg/dL (65-175) L 10/13/16 01:25 % Saturation 16 % (20-55) L 10/13/16 01:25 Transferrin 223 mg/dL (174-364) 10/13/16 01:25 Ferritin 201 ng/ml (22-275) 10/13/16 01:25 Troponin I 0.01 ng/mL (0-0.03) 10/12/16 18:16 Stool Occult Blood Positive (Negative) A 10/12/16 19:19 Entire Visit Hgb 11.8 g/dL (12.9-16.9) L 10/13/16 07:38 Hct 36.2 % (37.5-50.1) L 10/13/16 07:38 PT 12.2 Seconds (9.4-12.1) H 10/13/16 12:44 Ferritin 201 ng/ml (22-275) 10/13/16 01:25 Total Bilirubin 0.4 mg/dL (0.2-1.2) 10/13/16 12:44 AST 15 Units/L (5-34) 10/13/16 12:44 ALT 29 Units/L (0-55) 10/13/16 12:44 - ABG ABG results: PT/INR, D-dimer PT 12.2 Seconds (9.4-12.1) H 10/13/16 12:44 - Impressions Impressions Abdomen/Pelvis CT 10/12/16 22:30 IMPRESSION: 1. No acute findings identified in the abdomen and pelvis. D/ / 10/13/2016 07:02:08 Mateo Low MD / caitlyn Interpreting Provider: Mateo Low MD Liver Ultrasound 10/13/16 13:30 IMPRESSION: Diffuse hepatic steatosis. Cholelithiasis. D/ / Francisco Chino MD / Francisco Chino MD Interpreting Provider: Francisco Chino MD - Attending Attestation I examined this patient and my medical decision-making was reviewed with the COMPUTER PROGRAMMER CHIEF/PA/Advanced Practice Nurse/Resident Physician. I agree with the documented findings, disposition and treatment plan as described except to the extent set forth below. Retal bleeding most prob ischemic colitis, r/o mother causes. Colon in am
[2016-10-13] MEDS: DALIRESP 500 MCG PO SCH (10:21)
[2016-10-13] MEDS: Budesonide/Formoterol 160/4.5 MDI IH SCH ×2 (10:46→20:34)
[2016-10-13] MEDS: Fluticasone Propionate Nasal 50 MCG/SPRAY BOTTLE NS SCH (10:55)
--- NOTE | 2016-10-13 11:59 | Electrocardiograph Report ---
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
[2016-10-13 13:06] LABS: INR 1.1; Prothrombin Time 12.2 Seconds (9.4-12.1)
[2016-10-13 13:16] LABS: Alanine Aminotransferase 29 Units/L (0-55); Albumin 3.3 g/dL (3.5-5.0); Alkaline Phosphatase 63 Units/L (38-126); Aspartate Amino Transferase 15 Units/L (5-34); BUN/Creatinine Ratio 26 (6-26); Bilirubin,Total 0.4 mg/dL (0.2-1.2); Blood Urea Nitrogen 22 mg/dL (8-26); Calcium 9.4 mg/dL (8.6-10.8); Carbon Dioxide 22 mEq/L (19-29); Chloride 106 mEq/L (98-109); Globulin 3.2 g/dL (2.4-3.5); Glucose 146 mg/dL (70-99); Osmolality,Calculated 294 (280-300); Potassium 4.2 mEq/L (3.5-4.5); Sodium 139 mEq/L (136-145); Total Protein 6.5 g/dL (6.0-8.3); eGFR For African Americans > 60 (> 60); eGFR For Non-African Americans > 60 (> 60)
[2016-10-13 13:51] LABS: Hepatitis A Antibody IgM Nonreactive (Nonreactive); Hepatitis B Surface Antigen Nonreactive (Nonreactive); Hepatitis C Virus Antibody Nonreactive (Nonreactive)
[2016-10-13 14:33] LABS: Hepatitis B Core IgM Nonreactive (Nonreactive)
--- NOTE | 2016-10-13 14:38 | Internal Med Progress Note ---
Date of Encounter: 10/13/16 Time of Encounter: 11:30 - Assessment and plan (1) GI bleed Current Visit: Yes Status: Acute Assessment and plan: Patient having lower GI bleed. GI consulted. Plan to do colonoscopy tomorrow. Qualifiers: GI bleed type/associated pathology: anorectal hemorrhage Qualified Code(s) : K62.5 - Hemorrhage of anus and rectum (2) Lactic acidosis Current Visit: Yes Status: Acute Assessment and plan: Lactic acidosis remains persistent. CT scan of the abdomen and pelvis done. Did not show any signs of colitis. Continue IV hydration. (3) Sepsis Current Visit: Yes Status: Suspected Assessment and plan: Clinically better. Although patient did meet SIRS criteria, no clear source of infection. Patient did have leukocytosis on presentation but he was on prednisone which could be causing the leukocytosis. No fever chills or night sweats. If patient's cultures remain negative, will stop IV antibiotics tomorrow. Qualifiers: Sepsis type: sepsis due to unspecified organism Qualified Code(s): A41.9 - Sepsis, unspecified organism (4) Acute and chronic respiratory failure with hypoxia Current Visit: No Status: Acute Assessment and plan: Continue O2 supplementation. (5) Acute exacerbation of chronic obstructive airways disease Current Visit: No Status: Acute Assessment and plan: Will wean down steroids as patient is doing better. Continue nebulizer treatments and O2 supplementation. (6) DVT prophylaxis Current Visit: No Status: Acute Assessment and plan: With SCDs alone due to GI bleed. - Subjective Interval history: Patient continues to have bright red bleeding per rectum. He had a bowel movement this morning and again notices blood. Denies any abdominal pain. No dizziness or lightheadedness. - Constitutional Vitals: Temp Pulse Resp BP Pulse Ox 97.6 F 87 18 148/73 97 10/13/16 10:00 10/13/16 10:00 10/13/16 10:49 10/13/16 10:10/13/16 10:49 General appearance: Present: mild distress, A&O X 3, pleasant, obese, answers questions appropriately - Neck Neck exam general surgery: Present: supple, trachea midline. Absent: lymphadenopathy - Respiratory Respiratory exam: Present: decreased breath sounds (Diminished breath sounds bilaterally), prolonged expiratory phase, wheezes (Mild end expiratory wheezes bilaterally). Absent: accessory muscle use, rales, rhonchi - Cardiovascular Cardiovascular exam: Present: RRR, +S1, +S2. Absent: diastolic murmur, gallop, rubs, systolic murmur - GI/Abdominal GI/Abdominal exam: Present: normal bowel sounds, soft, no peritoneal signs. Absent: distended, tenderness - Neurological Exam Neurological exam: Present: CN II-XII intact, oriented X3, no focal deficits. Absent: facial droop, speech deficit - Skin Skin exam: Present: pallor Internal Medicine: Result - Labs CBC & Chem 7: 10/13/16 07:38 10/13/16 12:44 Labs: Short CBC 10/13/16 10/13/16 10/13/16 Range/Units 01:25 01: 07:38 WBC 13.0 H (4.3-11.1) K/mcL Hgb 12.1 L 12.1 L 11.8 L (12.9-16.9) g/dL Hct 38.4 37.8 36.2 L (37.5-50.1) % Plt Count 236 (140-400) K/mcL Neutrophils # 11.6 H (1.6-8.9) K/mcL BMP 10/13/16 12:44 Sodium 139 Potassium 4.2 Chloride 106 Carbon Dioxide 22 BUN 22 Creatinine 0.86 Glucose 146 H Calcium 9.4 Liver Function 10/13/16 Range/Units 12:44 Total Bilirubin 0.4 (0.2-1.2) mg/dL AST 15 (5-34) Units/L ALT 29 (0-55) Units/L Alkaline Phosphatase 63 (38-126) Units/L Albumin 3.3 L (3.5-5.0) g/dL - ABG Interpretation ABG results: PT/INR, D-dimer PT 12.2 Seconds (9.4-12.1) H 10/13/16 12:44 - Impressions Impressions Abdomen/Pelvis CT 10/12/16 22:30 IMPRESSION: 1. No acute findings identified in the abdomen and pelvis. D/ / 10/13/2016 07:02:08 Mateo Low MD / caitlyn Interpreting Provider: Mateo Low MD Liver Ultrasound 10/13/16 13:30 IMPRESSION: Diffuse hepatic steatosis. Cholelithiasis. D/ / Francisco Chino MD / Francisco Chino MD Interpreting Provider: Francisco Chino MD - VTE Documentation of Mechanical Device: Intermittent pneumatic compression device Consult Discharge Plan - Plan Referrals: Bryce Jones, [Primary Care Provider] - - Attending Attestation This document has been at least partially created by [employer] recognition technology by Dr. Singh. Errors in grammar, wording or other phrases may exist. If errors are found after the documentation is signed, they will be addressed individually in the addendum section of this document when appropriate. Medical Decision Making - MDM Narrative Medical decision making narrative: High risk for complications due to GI bleeding and COPD exacerbation. - Lab Data Result diagrams: 10/13/16 07:38 10/13/16 12:44 Lab Results 10/13/16 10/13/16 10/13/16 Range/Units 01:25 01:25 01:25 WBC 13.0 H (4.3-11.1) K/mcL RBC 4.58 (4.19-5.50) M/mcL Hgb 12.1 L (12.9-16.9) g/dL Hct 38.4 (37.5-50.1) % MCV 83.8 (83.0-100.0) fL MCH 26.4 L (28.0-33.3) pg MCHC 31.5 L (31.6-35.5) g/dL RDW 16.4 H (11.5-14.5) % Plt Count 236 (140-400) K/mcL MPV 8.7 L (9.4-12.4) fL Immature Gran % 2.2 (0-4) % Seg Neutrophils % 89.2 % Lymphocytes % 6.6 % Monocytes % 1.5 % Eosinophils % 0.2 % Basophils % 0.3 % Neutrophils # 11.6 H (1.6-8.9) K/mcL Lymphocytes # 0.9 (0.6-4.6) K/mcL Monocytes # 0.2 (0.0-1.3) K/mcL Eosinophils # 0.0 (0.0-0.6) K/mcL Basophils # 0.0 (0.0-0.2) K/mcL PT (9.4-12.1) Seconds INR Sodium (136-145) mEq/L Potassium (3.5-4.5) mEq/L Chloride (98-109) mEq/L Carbon Dioxide (19-29) mEq/L BUN (8-26) mg/dL Creatinine (0.72-1.25) mg/dL Est GFR ( Amer) (> 60) Est GFR (Non-Af Amer) (> 60) BUN/Creatinine Ratio (6-26) Glucose (70-99) mg/dL POC Glucose (58-89) Calculated Osmolality (280-300) Lactic Acid 2.9 H (0.5-2.2) mmol/L Calcium (8.6-10.8) mg/dL Iron 51 L (65-175) mcg/dL % Saturation 16 L (20-55) % Transferrin 223 (174-364) mg/dL Ferritin 201 (22-275) ng/ml Total Bilirubin (0.2-1.2) mg/dL AST (5-34) Units/L ALT (0-55) Units/L Alkaline Phosphatase (38-126) Units/L Serum Total Protein (6.0-8.3) g/dL Albumin (3.5-5.0) g/dL Globulin (2.4-3.5) g/dL Albumin/Globulin Ratio (1.1-2.2) Hepatitis A IgM Ab (Nonreactive) Hep Bs Antigen (Nonreactive) Hep B Core IgM Ab (Nonreactive) Hepatitis C Ab Screen (Nonreactive) 10/13/16 10/13/16 10/13/16 Range/Units 01:25 05:33 07:38 WBC (4.3-11.1) K/mcL RBC (4.19-5.50) M/mcL Hgb 12.1 L 11.8 L (12.9-16.9) g/dL Hct 37.8 36.2 L (37.5-50.1) % MCV (83.0-100.0) fL MCH (28.0-33.3) pg MCHC (31.6-35.5) g/dL RDW (11.5-14.5) % Plt Count (140-400) K/mcL MPV (9.4-12.4) fL Immature Gran % (0-4) % Seg Neutrophils % % Lymphocytes % % Monocytes % % Eosinophils % % Basophils % % Neutrophils # (1.6-8.9) K/mcL Lymphocytes # (0.6-4.6) K/mcL Monocytes # (0.0-1.3) K/mcL Eosinophils # (0.0-0.6) K/mcL Basophils # (0.0-0.2) K/mcL PT (9.4-12.1) Seconds INR Sodium (136-145) mEq/L Potassium (3.5-4.5) mEq/L Chloride (98-109) mEq/L Carbon Dioxide (19-29) mEq/L BUN (8-26) mg/dL Creatinine (0.72-1.25) mg/dL Est GFR ( Amer) (> 60) Est GFR (Non-Af Amer) (> 60) BUN/Creatinine Ratio (6-26) Glucose (70-99) mg/dL POC Glucose 140 H (58-89) Calculated Osmolality (280-300) Lactic Acid (0.5-2.2) mmol/L Calcium (8.6-10.8) mg/dL Iron (65-175) mcg/dL % Saturation (20-55) % Transferrin (174-364) mg/dL Ferritin (22-275) ng/ml Total Bilirubin (0.2-1.2) mg/dL AST (5-34) Units/L ALT (0-55) Units/L Alkaline Phosphatase (38-126) Units/L Serum Total Protein (6.0-8.3) g/dL Albumin (3.5-5.0) g/dL Globulin (2.4-3.5) g/dL Albumin/Globulin Ratio (1.1-2.2) Hepatitis A IgM Ab (Nonreactive) Hep Bs Antigen (Nonreactive) Hep B Core IgM Ab (Nonreactive) Hepatitis C Ab Screen (Nonreactive) 10/13/16 10/13/16 10/13/16 Range/Units 10:43 12:44 12:44 WBC (4.3-11.1) K/mcL RBC (4.19-5.50) M/mcL Hgb (12.9-16.9) g/dL Hct (37.5-50.1) % MCV (83.0-100.0) fL MCH (28.0-33.3) pg MCHC (31.6-35.5) g/dL RDW (11.5-14.5) % Plt Count (140-400) K/mcL MPV (9.4-12.4) fL Immature Gran % (0-4) % Seg Neutrophils % % Lymphocytes % % Monocytes % % Eosinophils % % Basophils % % Neutrophils # (1.6-8.9) K/mcL Lymphocytes # (0.6-4.6) K/mcL Monocytes # (0.0-1.3) K/mcL Eosinophils # (0.0-0.6) K/mcL Basophils # (0.0-0.2) K/mcL PT 12.2 H (9.4-12.1) Seconds INR 1.1 Sodium 139 (136-145) mEq/L Potassium 4.2 (3.5-4.5) mEq/L Chloride 106 (98-109) mEq/L Carbon Dioxide 22 (19-29) mEq/L BUN 22 (8-26) mg/dL Creatinine 0.86 (0.72-1.25) mg/dL Est GFR ( Amer) > 60 (> 60) Est GFR (Non-Af Amer) > 60 (> 60) BUN/Creatinine Ratio 26 (6-26) Glucose 146 H (70-99) mg/dL POC Glucose 133 H (58-89) Calculated Osmolality 294 (280-300) Lactic Acid (0.5-2.2) mmol/L Calcium 9.4 (8.6-10.8) mg/dL Iron (65-175) mcg/dL % Saturation (20-55) % Transferrin (174-364) mg/dL Ferritin (22-275) ng/ml Total Bilirubin 0.4 (0.2-1.2) mg/dL AST 15 (5-34) Units/L ALT 29 (0-55) Units/L Alkaline Phosphatase 63 (38-126) Units/L Serum Total Protein 6.5 (6.0-8.3) g/dL Albumin 3.3 L (3.5-5.0) g/dL Globulin 3.2 (2.4-3.5) g/dL Albumin/Globulin Ratio 1.0 L (1.1-2.2) Hepatitis A IgM Ab (Nonreactive) Hep Bs Antigen (Nonreactive) Hep B Core IgM Ab (Nonreactive) Hepatitis C Ab Screen (Nonreactive) 10/13/16 Range/Units 12:44 WBC (4.3-11.1) K/mcL RBC (4.19-5.50) M/mcL Hgb (12.9-16.9) g/dL Hct (37.5-50.1) % MCV (83.0-100.0) fL MCH (28.0-33.3) pg MCHC (31.6-35.5) g/dL RDW (11.5-14.5) % Plt Count (140-400) K/mcL MPV (9.4-12.4) fL Immature Gran % (0-4) % Seg Neutrophils % % Lymphocytes % % Monocytes % % Eosinophils % % Basophils % % Neutrophils # (1.6-8.9) K/mcL Lymphocytes # (0.6-4.6) K/mcL Monocytes # (0.0-1.3) K/mcL Eosinophils # (0.0-0.6) K/mcL Basophils # (0.0-0.2) K/mcL PT (9.4-12.1) Seconds INR Sodium (136-145) mEq/L Potassium (3.5-4.5) mEq/L Chloride (98-109) mEq/L Carbon Dioxide (19-29) mEq/L BUN (8-26) mg/dL Creatinine (0.72-1.25) mg/dL Est GFR ( Amer) (> 60) Est GFR (Non-Af Amer) (> 60) BUN/Creatinine Ratio (6-26) Glucose (70-99) mg/dL POC Glucose (58-89) Calculated Osmolality (280-300) Lactic Acid (0.5-2.2) mmol/L Calcium (8.6-10.8) mg/dL Iron (65-175) mcg/dL % Saturation (20-55) % Transferrin (174-364) mg/dL Ferritin (22-275) ng/ml Total Bilirubin (0.2-1.2) mg/dL AST (5-34) Units/L ALT (0-55) Units/L Alkaline Phosphatase (38-126) Units/L Serum Total Protein (6.0-8.3) g/dL Albumin (3.5-5.0) g/dL Globulin (2.4-3.5) g/dL Albumin/Globulin Ratio (1.1-2.2) Hepatitis A IgM Ab Nonreactive (Nonreactive) Hep Bs Antigen Nonreactive (Nonreactive) Hep B Core IgM Ab Nonreactive (Nonreactive) Hepatitis C Ab Screen Nonreactive (Nonreactive)
[2016-10-13] MEDS: Albuterol 2.5 MG/3 ML NEBULIZER IH SCH ×3 (16:19→23:54)
[2016-10-13] MEDS: 0.9 % Sodium Chloride 1,000 ML IVC SCH (16:32)
[2016-10-13] MEDS ORDERED: SODIUM CHLORIDE/NAHCO3/KCL/PEG 4,000 ML SOLN.RECON PO ONE (17:00)
[2016-10-13] MEDS: Levofloxacin 750 MG/150 ML 750 MG/150 ML BAG IVPB SCH (23:10)
[2016-10-14] MEDS: MetroNIDAZOLE 500 MG/100 ML 500 MG/100 ML BAG IVPB SCH ×3 (00:41→15:38)
[2016-10-14] MEDS: clonazePAM 1 MG TABLET PO PRN ×2 (00:47→22:12)
[2016-10-14 04:14] LABS: Basophils % 0.1 %; Hemoglobin 11.5 g/dL (12.9-16.9); Immature Granulocytes % 1.5 % (0-4); Lymphocytes # 0.8 K/mcL (0.6-4.6); Lymphocytes % 5.8 %; Mean Corpuscular HGB Conc 31.9 g/dL (31.6-35.5); Mean Corpuscular Hemoglobin 26.6 pg (28.0-33.3); Mean Corpuscular Volume 83.1 fL (83.0-100.0); Mean Platelet Volume 8.6 fL (9.4-12.4); Monocytes # 0.5 K/mcL (0.0-1.3); Monocytes % 3.8 %; Platelet Count 234 K/mcL (140-400); Red Blood Count 4.33 M/mcL (4.19-5.50); Red Cell Distribution Width 16.5 % (11.5-14.5); Segmented Neutrophils % 88.8 %
[2016-10-14] MEDS: Albuterol 2.5 MG/3 ML NEBULIZER IH SCH ×6 (04:25→23:41)
[2016-10-14 04:26] LABS: BUN/Creatinine Ratio 19 (6-26); Blood Urea Nitrogen 17 mg/dL (8-26); Carbon Dioxide 23 mEq/L (19-29); Chloride 107 mEq/L (98-109); Glucose 157 mg/dL (70-99); Osmolality,Calculated 295 (280-300); Sodium 140 mEq/L (136-145); eGFR For African Americans > 60 (> 60); eGFR For Non-African Americans > 60 (> 60)
[2016-10-14] MEDS: Pantoprazole 40 MG VIAL IVP SCH ×2 (05:42→16:42)
[2016-10-14] MEDS: Budesonide/Formoterol 160/4.5 MDI IH SCH ×2 (07:51→20:25)
[2016-10-14] MEDS: MethylPREDNISolone 40 MG/ML VIAL IVP SCH ×2 (08:02→22:13)
[2016-10-14] MEDS: Loratadine 10 MG TABLET PO SCH (08:02)
[2016-10-14] MEDS: amLODIPine 5 MG TABLET PO SCH (08:03)
[2016-10-14] MEDS: DALIRESP 500 MCG PO SCH (08:03)
[2016-10-14] MEDS: Fluticasone Propionate Nasal 50 MCG/SPRAY BOTTLE NS SCH (08:04)
[2016-10-14] MEDS: 0.9 % Sodium Chloride 1,000 ML IVC SCH (10:56)
--- NOTE | 2016-10-14 13:23 | Anesthesia Evaluation PreOp ---
Date of Encounter: 10/14/16 Time of Encounter: 13:20 - Past History Planned Operation: Colonoscopy Cardiac History: HTN Pulmonary History: Former smoker (quity 8 years ago, smoked 34 years), COPD ( homw O2 at 2 L/NC) SETTLEMENT AGENT History: Denies Any Significant HX Other Medical History: Hepatic (fatty liver), Diabetes Type II (diet controlled) , GERD, Other (obesity BMI=42.5, anxiety/depression, GI bleed) Anesthesia History: No Prior Anesthetic Complications, Past Anesthesia Alcohol Use: rarely Drug use: none Medications and Allergies Albuterol Sulfate [Albuterol Inhaler] 2 puff IH Q4HR PRN 03/16/16 [History] Amlodipine Besylate 10 mg PO DAILY 03/16/16 [History] Azelastine 0.1% Nasal [place] [Astelin] 1 spray NS BID 03/16/16 [History] Budesonide/Formoterol 160/4.5 [Symbicort 160/4.5] 2 puff IH BIDR 03/16/16 [ History] Cetirizine HCl [Zyrtec] 10 mg PO DAILY 03/16/16 [History] ClonazePAM [Klonopin] 1 mg PO BID PRN 03/16/16 [History] Docusate [Colace] 100 mg PO BID PRN 03/16/16 [History] Ergocalciferol (VITAMIN D2) [Vitamin D] 400 unit PO DAILY 03/16/16 [History] Esomeprazole Magnesium [Nexium] 40 mg PO BID 03/16/16 [History] Fluticasone Propionate Nasal [Flonase] 100 mcg NS DAILY 03/16/16 [History] Ketoconazole Shampoo [Nizoral Shampoo] 1 appl TP TID 03/16/16 [History] Polyethylene Glycol 3350 [MiraLAX] 17 gm PO DAILY 03/16/16 [History] Psyllium Seed (with Sugar) [Metamucil Powder] 575 gm PO DAILY 03/16/16 [History] Roflumilast [Daliresp] 500 mcg PO DAILY 03/16/16 [History] Sodium Chloride [[place] Saline] 1 spray NS BID PRN 03/16/16 [History] Albuterol Neb [Proventil Neb] 2.5 mg IH Q2-4H PRN 09/21/16 [History] GuaiFENesin ER [Mucinex] 1,200 mg PO BID PRN #40 tbbp.12hr 09/30/16 [Rx] Metoprolol [Lopressor] 12.5 mg PO BID #30 tablet 09/30/16 [Rx] Montelukast [Singulair] 10 mg PO HS #30 tablet 09/30/16 [Rx] PredniSONE 10 mg PO DAILY #41 tablet 09/30/16 [Rx] Allergies morphine Allergy (Verified 09/17/16 08:27) Difficulty Breathing sulfamethoxazole [From Bactrim] Allergy (Verified 10/12/16 20:21) Rash trimethoprim [From Bactrim] Allergy (Verified 10/12/16 20:21) Rash aspirin Adverse Reaction (Verified 03/16/16 17:11) Nausea codeine Adverse Reaction (Verified 03/16/16 17:11) Nausea - Meds/Allergy Pre-op Review Medications Reviewed: Yes Allergies Reviewed: Yes Beta Blockers on Current Med List: Yes If Beta Blockers taken, Date/Time (Last Dose taken): 10/14/2016 at 0803 Anesthesia Results - Labs 10/14/16 04:04 10/14/16 04:04 - Imaging EKG: report reviewed (10/12/2016 ST, possible inferior infarct) Additional studies: 09/25/2016 Echo LVEF 60% poor quality study unable to assess valves and pulmonary pressure with this study 01/11/2014 Cath Impressions: Coronary arteries are angiographically normal. The left ventricle is normal and has normal contractility EF 60% Anesthesia Exam Vital Signs/O2 Sat, Most Current Temp Pulse Resp BP Pulse Ox 97.4 F L 89 16 121/76 96 10/14/16 10:54 10/14/16 13:15 10/14/16 13:15 10/14/16 13:15 10/14/16 13:15 Height: 5'11''/1.8 m Weight: 305 lbs/138.374 kg NPO (# of Hours): 8 Pain Scale: 0 Pain Scale Used: Numeric (1 - 10) - HEENT Pupil (Motor): EOMI Mallampati: III Teeth: Missing (has 1 tooth ( right lower molar )) Oral Opening: Greater than 3 - SETTLEMENT AGENT LOC: Oriented SETTLEMENT AGENT Motor: Normal RUE, Normal LUE, Normal RLE, Normal LLE, Normal Face SETTLEMENT AGENT Sensory: Normal: RUE, LUE, RLE, LLE, Face - Cardiac Rhythm: Regular Murmur: None - Pulmonary Breath Sounds: bilateral Clear (distant BS) Respiratory Effort: Symmetrical Anesthesia Assess/Plan ASA Score: 4 Modified Breanna Scale for Level of Consciousness: Cooperative, oriented, and tranquil Anesthetic Plan: MAC Monitoring Plan: Standard Monitors
--- NOTE | 2016-10-14 14:19 | Internal Med Progress Note ---
Date of Encounter: 10/14/16 Time of Encounter: 09:00 - Assessment and plan (1) GI bleed Current Visit: Yes Status: Acute Assessment and plan: Transfer for colonoscopy today. Continue to monitor blood counts. Qualifiers: GI bleed type/associated pathology: anorectal hemorrhage Qualified Code(s) : K62.5 - Hemorrhage of anus and rectum (2) Lactic acidosis Current Visit: Yes Status: Acute Assessment and plan: Lactic acid 2.5 today. (3) Sepsis Current Visit: Yes Status: Suspected Assessment and plan: Blood cultures remained negative. WBC count is 13.6 today. Likely due to IV steroid use. Qualifiers: Sepsis type: sepsis due to unspecified organism Qualified Code(s): A41.9 - Sepsis, unspecified organism (4) Acute and chronic respiratory failure with hypoxia Current Visit: No Status: Acute Assessment and plan: Continue O2 supplementation (5) Acute exacerbation of chronic obstructive airways disease Current Visit: No Status: Acute Assessment and plan: On O2 supplementation, IV steroids and IV antibiotics. Also receiving nebulizer treatments with bronchodilators (6) DVT prophylaxis Current Visit: No Status: Acute Assessment and plan: With SCDs alone as patient is having GI bleed. - Subjective Interval history: Patient denies significant shortness of breath. His status is improving. He has taken his bowel prep for colonoscopy later today. He did have some blood mixed with his stools earlier this morning. Denies any abdominal pain. - Constitutional Vitals: Temp Pulse Resp BP Pulse Ox 97.4 F L 89 16 121/76 96 10/14/16 10:54 10/14/16 13:15 10/14/16 13:15 10/14/16 13:15 10/14/16 13:15 General appearance: Present: mild distress, A&O X 3, pleasant, obese, answers questions appropriately - Neck Neck exam general surgery: Present: supple, trachea midline. Absent: lymphadenopathy - Respiratory Respiratory exam: Present: decreased breath sounds (diminished breath sounds bilaterally), prolonged expiratory phase, wheezes. Absent: accessory muscle use , rales, rhonchi - GI/Abdominal GI/Abdominal exam: Present: normal bowel sounds, soft, no peritoneal signs. Absent: distended, tenderness - Extremities Exam Extremities exam: Present: warm, radial pulses palpable and symetrical. Absent : calf tenderness, cyanotic, pedal edema - Neurological Exam Neurological exam: Present: CN II-XII intact, oriented X3, no focal deficits. Absent: facial droop, speech deficit Internal Medicine: Result - Labs CBC & Chem 7: 10/14/16 04:04 10/14/16 04:04 Labs: Short CBC 10/14/16 Range/Units 04:04 WBC 13.6 H (4.3-11.1) K/mcL Hgb 11.5 L (12.9-16.9) g/dL Hct 36.0 L (37.5-50.1) % Plt Count 234 (140-400) K/mcL Neutrophils # 12.0 H (1.6-8.9) K/mcL BMP 10/14/16 04:04 Sodium 140 Potassium 5.0 H Chloride 107 Carbon Dioxide 23 BUN 17 Creatinine 0.91 Glucose 157 H Calcium 9.0 - ABG Interpretation ABG results: PT/INR, D-dimer PT 12.2 Seconds (9.4-12.1) H 10/13/16 12:44 - Impressions Impressions Liver Ultrasound 10/13/16 13:30 IMPRESSION: Diffuse hepatic steatosis. Cholelithiasis. D/ / Francisco Chino MD / Francisco Chino MD Interpreting Provider: Francisco Chino MD - VTE Documentation of Mechanical Device: Intermittent pneumatic compression device Consult Discharge Plan - Plan Referrals: Morelia Pierson MD [Partnered Physician] - 10/21/16 8:45 am Clemente Tyler DO [Resident] - 10/19/16 8:30 am - Attending Attestation This document has been at least partially created by [employer] recognition technology by Dr. Singh. Errors in grammar, wording or other phrases may exist. If errors are found after the documentation is signed, they will be addressed individually in the addendum section of this document when appropriate. Medical Decision Making - MDM Narrative Medical decision making narrative: Moderate risk for complications - Lab Data Lab results reviewed: Yes I reviewed the patient's lab results. Result diagrams: 10/14/16 04:04 10/14/16 04:04 Lab Results 10/13/16 10/13/16 10/13/16 Range/Units 01:25 01:25 01:25 WBC 13.0 H (4.3-11.1) K/mcL RBC 4.58 (4.19-5.50) M/mcL Hgb 12.1 L (12.9-16.9) g/dL Hct 38.4 (37.5-50.1) % MCV 83.8 (83.0-100.0) fL MCH 26.4 L (28.0-33.3) pg MCHC 31.5 L (31.6-35.5) g/dL RDW 16.4 H (11.5-14.5) % Plt Count 236 (140-400) K/mcL MPV 8.7 L (9.4-12.4) fL Immature Gran % 2.2 (0-4) % Seg Neutrophils % 89.2 % Lymphocytes % 6.6 % Monocytes % 1.5 % Eosinophils % 0.2 % Basophils % 0.3 % Neutrophils # 11.6 H (1.6-8.9) K/mcL Lymphocytes # 0.9 (0.6-4.6) K/mcL Monocytes # 0.2 (0.0-1.3) K/mcL Eosinophils # 0.0 (0.0-0.6) K/mcL Basophils # 0.0 (0.0-0.2) K/mcL PT (9.4-12.1) Seconds INR Sodium (136-145) mEq/L Potassium (3.5-4.5) mEq/L Chloride (98-109) mEq/L Carbon Dioxide (19-29) mEq/L BUN (8-26) mg/dL Creatinine (0.72-1.25) mg/dL Est GFR ( Amer) (> 60) Est GFR (Non-Af Amer) (> 60) BUN/Creatinine Ratio (6-26) Glucose (70-99) mg/dL POC Glucose (58-89) Calculated Osmolality (280-300) Lactic Acid 2.9 H (0.5-2.2) mmol/L Calcium (8.6-10.8) mg/dL Iron 51 L (65-175) mcg/dL % Saturation 16 L (20-55) % Transferrin 223 (174-364) mg/dL Ferritin 201 (22-275) ng/ml Total Bilirubin (0.2-1.2) mg/dL AST (5-34) Units/L ALT (0-55) Units/L Alkaline Phosphatase (38-126) Units/L Serum Total Protein (6.0-8.3) g/dL Albumin (3.5-5.0) g/dL Globulin (2.4-3.5) g/dL Albumin/Globulin Ratio (1.1-2.2) Hepatitis A IgM Ab (Nonreactive) Hep Bs Antigen (Nonreactive) Hep B Core IgM Ab (Nonreactive) Hepatitis C Ab Screen (Nonreactive) 10/13/16 10/13/16 10/13/16 Range/Units 01:25 05:33 07:38 WBC (4.3-11.1) K/mcL RBC (4.19-5.50) M/mcL Hgb 12.1 L 11.8 L (12.9-16.9) g/dL Hct 37.8 36.2 L (37.5-50.1) % MCV (83.0-100.0) fL MCH (28.0-33.3) pg MCHC (31.6-35.5) g/dL RDW (11.5-14.5) % Plt Count (140-400) K/mcL MPV (9.4-12.4) fL Immature Gran % (0-4) % Seg Neutrophils % % Lymphocytes % % Monocytes % % Eosinophils % % Basophils % % Neutrophils # (1.6-8.9) K/mcL Lymphocytes # (0.6-4.6) K/mcL Monocytes # (0.0-1.3) K/mcL Eosinophils # (0.0-0.6) K/mcL Basophils # (0.0-0.2) K/mcL PT (9.4-12.1) Seconds INR Sodium (136-145) mEq/L Potassium (3.5-4.5) mEq/L Chloride (98-109) mEq/L Carbon Dioxide (19-29) mEq/L BUN (8-26) mg/dL Creatinine (0.72-1.25) mg/dL Est GFR ( Amer) (> 60) Est GFR (Non-Af Amer) (> 60) BUN/Creatinine Ratio (6-26) Glucose (70-99) mg/dL POC Glucose 140 H (58-89) Calculated Osmolality (280-300) Lactic Acid (0.5-2.2) mmol/L Calcium (8.6-10.8) mg/dL Iron (65-175) mcg/dL % Saturation (20-55) % Transferrin (174-364) mg/dL Ferritin (22-275) ng/ml Total Bilirubin (0.2-1.2) mg/dL AST (5-34) Units/L ALT (0-55) Units/L Alkaline Phosphatase (38-126) Units/L Serum Total Protein (6.0-8.3) g/dL Albumin (3.5-5.0) g/dL Globulin (2.4-3.5) g/dL Albumin/Globulin Ratio (1.1-2.2) Hepatitis A IgM Ab (Nonreactive) Hep Bs Antigen (Nonreactive) Hep B Core IgM Ab (Nonreactive) Hepatitis C Ab Screen (Nonreactive) 10/13/16 10/13/16 10/13/16 Range/Units 10:43 12:44 12:44 WBC (4.3-11.1) K/mcL RBC (4.19-5.50) M/mcL Hgb (12.9-16.9) g/dL Hct (37.5-50.1) % MCV (83.0-100.0) fL MCH (28.0-33.3) pg MCHC (31.6-35.5) g/dL RDW (11.5-14.5) % Plt Count (140-400) K/mcL MPV (9.4-12.4) fL Immature Gran % (0-4) % Seg Neutrophils % % Lymphocytes % % Monocytes % % Eosinophils % % Basophils % % Neutrophils # (1.6-8.9) K/mcL Lymphocytes # (0.6-4.6) K/mcL Monocytes # (0.0-1.3) K/mcL Eosinophils # (0.0-0.6) K/mcL Basophils # (0.0-0.2) K/mcL PT 12.2 H (9.4-12.1) Seconds INR 1.1 Sodium 139 (136-145) mEq/L Potassium 4.2 (3.5-4.5) mEq/L Chloride 106 (98-109) mEq/L Carbon Dioxide 22 (19-29) mEq/L BUN 22 (8-26) mg/dL Creatinine 0.86 (0.72-1.25) mg/dL Est GFR ( Amer) > 60 (> 60) Est GFR (Non-Af Amer) > 60 (> 60) BUN/Creatinine Ratio 26 (6-26) Glucose 146 H (70-99) mg/dL POC Glucose 133 H (58-89) Calculated Osmolality 294 (280-300) Lactic Acid (0.5-2.2) mmol/L Calcium 9.4 (8.6-10.8) mg/dL Iron (65-175) mcg/dL % Saturation (20-55) % Transferrin (174-364) mg/dL Ferritin (22-275) ng/ml Total Bilirubin 0.4 (0.2-1.2) mg/dL AST 15 (5-34) Units/L ALT 29 (0-55) Units/L Alkaline Phosphatase 63 (38-126) Units/L Serum Total Protein 6.5 (6.0-8.3) g/dL Albumin 3.3 L (3.5-5.0) g/dL Globulin 3.2 (2.4-3.5) g/dL Albumin/Globulin Ratio 1.0 L (1.1-2.2) Hepatitis A IgM Ab (Nonreactive) Hep Bs Antigen (Nonreactive) Hep B Core IgM Ab (Nonreactive) Hepatitis C Ab Screen (Nonreactive) 10/13/16 10/14/16 10/14/16 Range/Units 12:44 04:04 04:04 WBC 13.6 H (4.3-11.1) K/mcL RBC 4.33 (4.19-5.50) M/mcL Hgb 11.5 L (12.9-16.9) g/dL Hct 36.0 L (37.5-50.1) % MCV 83.1 (83.0-100.0) fL MCH 26.6 L (28.0-33.3) pg MCHC 31.9 (31.6-35.5) g/dL RDW 16.5 H (11.5-14.5) % Plt Count 234 (140-400) K/mcL MPV 8.6 L (9.4-12.4) fL Immature Gran % 1.5 (0-4) % Seg Neutrophils % 88.8 % Lymphocytes % 5.8 % Monocytes % 3.8 % Eosinophils % 0.0 % Basophils % 0.1 % Neutrophils # 12.0 H (1.6-8.9) K/mcL Lymphocytes # 0.8 (0.6-4.6) K/mcL Monocytes # 0.5 (0.0-1.3) K/mcL Eosinophils # 0.0 (0.0-0.6) K/mcL Basophils # 0.0 (0.0-0.2) K/mcL PT (9.4-12.1) Seconds INR Sodium 140 (136-145) mEq/L Potassium 5.0 H (3.5-4.5) mEq/L Chloride 107 (98-109) mEq/L Carbon Dioxide 23 (19-29) mEq/L BUN 17 (8-26) mg/dL Creatinine 0.91 (0.72-1.25) mg/dL Est GFR ( Amer) > 60 (> 60) Est GFR (Non-Af Amer) > 60 (> 60) BUN/Creatinine Ratio 19 (6-26) Glucose 157 H (70-99) mg/dL POC Glucose (58-89) Calculated Osmolality 295 (280-300) Lactic Acid (0.5-2.2) mmol/L Calcium 9.0 (8.6-10.8) mg/dL Iron (65-175) mcg/dL % Saturation (20-55) % Transferrin (174-364) mg/dL Ferritin (22-275) ng/ml Total Bilirubin (0.2-1.2) mg/dL AST (5-34) Units/L ALT (0-55) Units/L Alkaline Phosphatase (38-126) Units/L Serum Total Protein (6.0-8.3) g/dL Albumin (3.5-5.0) g/dL Globulin (2.4-3.5) g/dL Albumin/Globulin Ratio (1.1-2.2) Hepatitis A IgM Ab Nonreactive (Nonreactive) Hep Bs Antigen Nonreactive (Nonreactive) Hep B Core IgM Ab Nonreactive (Nonreactive) Hepatitis C Ab Screen Nonreactive (Nonreactive) 10/14/16 10/14/16 Range/Units 04:04 05:27 WBC (4.3-11.1) K/mcL RBC (4.19-5.50) M/mcL Hgb (12.9-16.9) g/dL Hct (37.5-50.1) % MCV (83.0-100.0) fL MCH (28.0-33.3) pg MCHC (31.6-35.5) g/dL RDW (11.5-14.5) % Plt Count (140-400) K/mcL MPV (9.4-12.4) fL Immature Gran % (0-4) % Seg Neutrophils % % Lymphocytes % % Monocytes % % Eosinophils % % Basophils % % Neutrophils # (1.6-8.9) K/mcL Lymphocytes # (0.6-4.6) K/mcL Monocytes # (0.0-1.3) K/mcL Eosinophils # (0.0-0.6) K/mcL Basophils # (0.0-0.2) K/mcL PT (9.4-12.1) Seconds INR Sodium (136-145) mEq/L Potassium (3.5-4.5) mEq/L Chloride (98-109) mEq/L Carbon Dioxide (19-29) mEq/L BUN (8-26) mg/dL Creatinine (0.72-1.25) mg/dL Est GFR ( Amer) (> 60) Est GFR (Non-Af Amer) (> 60) BUN/Creatinine Ratio (6-26) Glucose (70-99) mg/dL POC Glucose 162 H (58-89) Calculated Osmolality (280-300) Lactic Acid 2.5 H (0.5-2.2) mmol/L Calcium (8.6-10.8) mg/dL Iron (65-175) mcg/dL % Saturation (20-55) % Transferrin (174-364) mg/dL Ferritin (22-275) ng/ml Total Bilirubin (0.2-1.2) mg/dL AST (5-34) Units/L ALT (0-55) Units/L Alkaline Phosphatase (38-126) Units/L Serum Total Protein (6.0-8.3) g/dL Albumin (3.5-5.0) g/dL Globulin (2.4-3.5) g/dL Albumin/Globulin Ratio (1.1-2.2) Hepatitis A IgM Ab (Nonreactive) Hep Bs Antigen (Nonreactive) Hep B Core IgM Ab (Nonreactive) Hepatitis C Ab Screen (Nonreactive)
[2016-10-14] MEDS ORDERED: Psyllium 1 PACKET POWD.PACK PO SCH (21:00)
[2016-10-14] MEDS: Metoclopramide 10 MG/10 ML UD.LIQ PO SCH (22:12)
[2016-10-14] MEDS: Levofloxacin 750 MG/150 ML 750 MG/150 ML BAG IVPB SCH (22:13)
[2016-10-15] MEDS: MetroNIDAZOLE 500 MG/100 ML 500 MG/100 ML BAG IVPB SCH ×2 (00:31→09:40)
[2016-10-15] MEDS: Albuterol 2.5 MG/3 ML NEBULIZER IH SCH ×3 (04:00→11:37)
[2016-10-15 05:20] LABS: Basophils % 0.3 %; Hematocrit 37.1 % (37.5-50.1); Hemoglobin 11.8 g/dL (12.9-16.9); Immature Granulocytes % 1.2 % (0-4); Lymphocytes # 0.8 K/mcL (0.6-4.6); Lymphocytes % 7.3 %; Mean Corpuscular HGB Conc 31.8 g/dL (31.6-35.5); Mean Corpuscular Hemoglobin 26.8 pg (28.0-33.3); Mean Corpuscular Volume 84.3 fL (83.0-100.0); Mean Platelet Volume 9.1 fL (9.4-12.4); Monocytes # 0.6 K/mcL (0.0-1.3); Monocytes % 5.1 %; Neutrophils # 9.7 K/mcL (1.6-8.9); Platelet Count 254 K/mcL (140-400); Red Cell Distribution Width 17.1 % (11.5-14.5); Segmented Neutrophils % 86.1 %
[2016-10-15 05:42] LABS: BUN/Creatinine Ratio 22 (6-26); Blood Urea Nitrogen 20 mg/dL (8-26); Calcium 9.2 mg/dL (8.6-10.8); Carbon Dioxide 24 mEq/L (19-29); Chloride 107 mEq/L (98-109); Glucose 157 mg/dL (70-99); Osmolality,Calculated 294 (280-300); Potassium 4.9 mEq/L (3.5-4.5); Sodium 139 mEq/L (136-145); eGFR For African Americans > 60 (> 60); eGFR For Non-African Americans > 60 (> 60)
[2016-10-15] MEDS: Pantoprazole 40 MG VIAL IVP SCH (06:03)
[2016-10-15] MEDS: 0.9 % Sodium Chloride 1,000 ML IVC SCH (06:03)
[2016-10-15 07:10] VITALS: BP 149/72
[2016-10-15] MEDS: Budesonide/Formoterol 160/4.5 MDI IH SCH (08:05)
[2016-10-15 08:37] LABS: Alpha-1-Antitrypsin 144 mg/dL (90-200)
[2016-10-15 08:38] LABS: AFP Tumor Marker Non-Pregnant 3 ng/mL (0-9)
[2016-10-15 08:49] LABS: ANA IgG by ELISA NONE DETECTED (None Detected); F-Actin (sm muscle) Ab IgG 5 Units (0-19); Myeloperoxidase Ab 2 AU/mL (0-19); Serine Protease-3 Antibody 0 AU/mL (0-19)
[2016-10-15] MEDS: Metoclopramide 10 MG/10 ML UD.LIQ PO SCH (09:33)
[2016-10-15] MEDS: MethylPREDNISolone 40 MG/ML VIAL IVP SCH (09:34)
[2016-10-15] MEDS: Loratadine 10 MG TABLET PO SCH (09:34)
[2016-10-15] MEDS: amLODIPine 5 MG TABLET PO SCH (09:35)
--- NOTE | 2016-10-15 09:36 | Discharge Summary ---
Date of Encounter: 10/15/16 Time of Encounter: 09:00 - Discharge Diagnosis (1) GI bleed Priority: Primary Status: Acute Qualifiers: GI bleed type/associated pathology: anorectal hemorrhage Qualified Code(s) : K62.5 - Hemorrhage of anus and rectum (2) Lactic acidosis Priority: Secondary Status: Acute (3) Sepsis Priority: Secondary Status: Ruled-out Qualifiers: Sepsis type: sepsis due to unspecified organism Qualified Code(s): A41.9 - Sepsis, unspecified organism (4) Acute and chronic respiratory failure with hypoxia Priority: Secondary Status: Acute (5) Acute exacerbation of chronic obstructive airways disease Priority: Secondary Status: Acute (6) DVT prophylaxis Priority: Secondary Status: Acute - Discharge Medications Home Medications: Albuterol Sulfate [Albuterol Inhaler] 2 puff IH Q4HR PRN 03/16/16 [History] Amlodipine Besylate 10 mg PO DAILY 03/16/16 [History] Azelastine 0.1% Nasal [place] [Astelin] 1 spray NS BID 03/16/16 [History] Budesonide/Formoterol 160/4.5 [Symbicort 160/4.5] 2 puff IH BIDR 03/16/16 [ History] Cetirizine HCl [Zyrtec] 10 mg PO DAILY 03/16/16 [History] ClonazePAM [Klonopin] 1 mg PO BID PRN 03/16/16 [History] Docusate [Colace] 100 mg PO BID PRN 03/16/16 [History] Ergocalciferol (VITAMIN D2) [Vitamin D] 400 unit PO DAILY 03/16/16 [History] Esomeprazole Magnesium [Nexium] 40 mg PO BID 03/16/16 [History] Fluticasone Propionate Nasal [Flonase] 100 mcg NS DAILY 03/16/16 [History] Ketoconazole Shampoo [Nizoral Shampoo] 1 appl TP TID 03/16/16 [History] Polyethylene Glycol 3350 [MiraLAX] 17 gm PO DAILY 03/16/16 [History] Psyllium Seed (with Sugar) [Metamucil Powder] 575 gm PO DAILY 03/16/16 [History] Roflumilast [Daliresp] 500 mcg PO DAILY 03/16/16 [History] Sodium Chloride [[place]ke Saline] 1 spray NS BID PRN 03/16/16 [History] Albuterol Neb [Proventil Neb] 2.5 mg IH Q2-4H PRN 09/21/16 [History] GuaiFENesin ER [Mucinex] 1,200 mg PO BID PRN #40 tbbp.12hr 09/30/16 [Rx] Metoprolol [Lopressor] 12.5 mg PO BID #30 tablet 09/30/16 [Rx] Montelukast [Singulair] 10 mg PO HS #30 tablet 09/30/16 [Rx] PredniSONE 10 mg PO DAILY #41 tablet 09/30/16 [Rx] Allergies/Adverse Reactions: Allergies morphine Allergy (Verified 09/17/16 08:27) Difficulty Breathing sulfamethoxazole [From Bactrim] Allergy (Verified 10/12/16 20:21) Rash trimethoprim [From Bactrim] Allergy (Verified 10/12/16 20:21) Rash aspirin Adverse Reaction (Verified 03/16/16 17:11) Nausea codeine Adverse Reaction (Verified 03/16/16 17:11) Nausea Procedures/tests Complete & Pending: Procedures Performed prior 72 hours Category Date Time Status CT abd pelvis w iv no oral [CT] Stat Cat Scan 10/12/16 22:30 Completed US liver [US] Routine Exams 10/13/16 13:30 Completed Date of admission: 10/12/16 20:10 Primary care physician: Bryce Madrid Consults: 10/12/16 22:36 Consult to Gastroenterology [CONS] Routine Consulting Provider: Gastroenterology Katlyn Reason for Consult: Lower GI bleed Call Completed: Yes 10/14/16 11:54 Consult to Tobacco Drying Machine Operator [CONS] Routine Comment: Discharging clinician: Andrea Singh Anticipated date of discharge: 10/15/16 - Patient Status Disposition: Home, Self-Care Condition: Good Functional capacity at discharge: independent ambulation Overall status at discharge: patient is progressing back to baseline - Discharge Instructions Instructions: Chronic Obstructive Pulmonary Disease (DC) Follow Up With: Morelia Pierson MD [Partnered Physician] - 10/21/16 8:45 am Clemente Tyler DO [Resident] - 10/19/16 8:30 am Shonna Weeks MD [Partnered Physician] - 11/02/16 4:30 pm (in 1-2 weeks for Fatty liver, colonoscopy biopsy results) Additional Instructions: Follow-up appointments: If there is not an appointment listed below, please call your physician and schedule a follow-up appointment. If you have congestive heart failure and your symptoms return, make an appointment with your physician. Symptoms: If your condition changes or you experience any of the following symptoms, notify your physician immediately: Unusual or worsening pain, fever, persistent nausea and vomiting, bleeding, increase in swelling (especially in your legs), sudden weight gain, extreme dizziness, chest pain, increased drainage or redness from a wound or incision. Go to the emergency department if you experience a problem with breathing. Weights: If you have a history of swelling or shortness of breath, weigh yourself daily and notify your physician if you have a weight gain of two or more pounds in one day or 5 or more pounds in a week. If you experience any of the warning signs for stroke: Sudden numbness or weakness of the face, arm or leg; especially on one side of the body, sudden confusion, trouble speaking or understanding, sudden trouble seeing in one or both eyes, sudden trouble walking, dizziness, loss of balance or coordination, sudden sever headache with no cause; Call 911 or go to the emergency room. Stroke is a medical emergency. Some risk factors for stroke: Age, cigarette smoking, diabetes, excessive alcohol consumption, family history , high blood pressure, overweight, physical inactivity, prior stroke, heart attack, diagnosis of carotid artery stenosis or other artery disease. If you smoke, STOP: Smoking or tobacco use significantly increases your risk of heart and lung disease. Your chance of disease greatly increases if you continue to smoke. For more information, call the [place] tobacco quit line for smoking cessation - QUIT-NOW ( ) - Diet and Activity Activity: wear oxygen at all times Diet: diabetic diet, low fat, low cholesterol, low salt diet Hospital course: Mr. Herring is a 61 year old male with history of COPD and chronic hypoxic respiratory failure who presented to the ER with complaints of lower GI bleed with bright red bleeding per rectum and difficulty breathing. He was observed in the hospital and started on treatment for acute COPD exacerbation. His hemoglobin levels were also monitored. Gastroenterology was consulted and theyrecommendation that the patient undergo a colonoscopy. He underwent colonoscopy yesterday which showed no acute bleeding. Patient was having some polyps that have been biopsied and he can follow up with GI for further management. Patient also sees Dr. Yao with surgery. He was also noted to have internal hemorrhoids which are probably the cause of his bright red bleeding per rectum. His hemoglobin levels have been stable here since 2 days. His GI bleeding seems to be improving. He is no longer having bright red bleeding per rectum. He is stable to be discharged home and will follow up with GI and his primary care provider. He was also initially diagnosed with sepsis but his symptoms were more likely related to his GI bleed and he does not have any acute source of infection. His blood cultures have also been negative. Does not need any further antibiotics. - Time Spent with Patient Total time spent providing and/or coordinating discharge services: Less than 30 minutes (25 min) - Constitutional Vitals: Temp Pulse Resp BP Pulse Ox 97.6 F 75 16 149/72 96 10/15/16 07:09 10/15/16 07:09 10/15/16 07:09 10/15/16 07:09 10/15/16 07:09 General appearance: Present: A&O X 3, pleasant, no acute distress, obese, answers questions appropriately - Respiratory Respiratory exam: Present: CTAB. Absent: accessory muscle use, rales, rhonchi, wheezes - Cardiovascular Cardiovascular exam: Present: RRR, +S1, +S2. Absent: diastolic murmur, gallop, rubs, systolic murmur - Extremities Exam Extremities exam: Present: warm, radial pulses palpable and symetrical. Absent : calf tenderness, cyanotic, pedal edema - Neurological Exam Neurological exam: Present: oriented X3, no focal deficits, strengths equal and symetr throughout. Absent: facial droop, speech deficit - VTE Documentation of Mechanical Device: Intermittent pneumatic compression device - Attending Attestation This document has been at least partially created by [employer] recognition technology by Dr. Singh. Errors in grammar, wording or other phrases may exist. If errors are found after the documentation is signed, they will be addressed individually in the addendum section of this document when appropriate.
[2016-10-15] MEDS: Fluticasone Propionate Nasal 50 MCG/SPRAY BOTTLE NS SCH (09:37)
[2016-10-15] MEDS: DALIRESP 500 MCG PO SCH (09:37)
--- NOTE | 2016-10-15 10:47 | Physician Discharge Referral ---
Home Health/Hosp Referral Info Transfer to: Home Health Provider in Charge Post Discharge: PCP - Diagnosis (1) GI bleed Priority: Primary Status: Acute (2) Lactic acidosis Priority: Secondary Status: Acute (3) Sepsis Priority: Secondary Status: Ruled-out (4) Acute and chronic respiratory failure with hypoxia Priority: Secondary Status: Acute (5) Acute exacerbation of chronic obstructive airways disease Priority: Secondary Status: Acute (6) DVT prophylaxis Priority: Secondary Status: Acute - Respiratory Orders Oxygen / L per min (2) Smoking Cessation: Smoking cessation has been advised. For more information, call the [place] Tobacco Quit Line at 0-892-QXZH-NOW. - Diet/Nutrition Diet/Nutrition Orders: Cardiac (and diabetic) - Activity Activity Orders: Walker - Services Needed Following services are medically necessary services: Nursing, Physical Therapy, Occupational Therapy - Transfer Medications Home Medications: Albuterol Sulfate [Albuterol Inhaler] 2 puff IH Q4HR PRN 03/16/16 [History] Amlodipine Besylate 10 mg PO DAILY 03/16/16 [History] Azelastine 0.1% Nasal [place] [Astelin] 1 spray NS BID 03/16/16 [History] Budesonide/Formoterol 160/4.5 [Symbicort 160/4.5] 2 puff IH BIDR 03/16/16 [ History] Cetirizine HCl [Zyrtec] 10 mg PO DAILY 03/16/16 [History] ClonazePAM [Klonopin] 1 mg PO BID PRN 03/16/16 [History] Docusate [Colace] 100 mg PO BID PRN 03/16/16 [History] Ergocalciferol (VITAMIN D2) [Vitamin D] 400 unit PO DAILY 03/16/16 [History] Esomeprazole Magnesium [Nexium] 40 mg PO BID 03/16/16 [History] Fluticasone Propionate Nasal [Flonase] 100 mcg NS DAILY 03/16/16 [History] Ketoconazole Shampoo [Nizoral Shampoo] 1 appl TP TID 03/16/16 [History] Polyethylene Glycol 3350 [MiraLAX] 17 gm PO DAILY 03/16/16 [History] Psyllium Seed (with Sugar) [Metamucil Powder] 575 gm PO DAILY 03/16/16 [History] Roflumilast [Daliresp] 500 mcg PO DAILY 03/16/16 [History] Sodium Chloride [Odem Saline] 1 spray NS BID PRN 03/16/16 [History] Albuterol Neb [Proventil Neb] 2.5 mg IH Q2-4H PRN 09/21/16 [History] GuaiFENesin ER [Mucinex] 1,200 mg PO BID PRN #40 tbbp.12hr 09/30/16 [Rx] Metoprolol [Lopressor] 12.5 mg PO BID #30 tablet 09/30/16 [Rx] Montelukast [Singulair] 10 mg PO HS #30 tablet 09/30/16 [Rx] PredniSONE 10 mg PO DAILY #41 tablet 09/30/16 [Rx] Allergies/Adverse Reactions: Allergies morphine Allergy (Verified 09/17/16 08:27) Difficulty Breathing sulfamethoxazole [From Bactrim] Allergy (Verified 10/12/16 20:21) Rash trimethoprim [From Bactrim] Allergy (Verified 10/12/16 20:21) Rash aspirin Adverse Reaction (Verified 03/16/16 17:11) Nausea codeine Adverse Reaction (Verified 03/16/16 17:11) Nausea Certification: Further, I certify that my clinical findings support that this patient is homebound (i.e. absences from home require considerable and taxing effort and are for medical reasons or mosque services or infrequently or short duration when for other reasons) because: Homebound Reason: Patient requires assistance of a person or device to safely leave home, Leaving home requires considerable and taxing effort due to condition Attestation: My signature below is to certify that this patient is under my care and that I, or nurse practitioner, or a physician's housekeeping assistant working with me, has a face-to -face encounter with this patient.
[2016-10-16 11:31] LABS: Ceruloplasmin 24 mg/dL (17-54)
== END 2016-10-15 11:49 | disposition home health service (06) ==
LOC: EMEROO 17:32 → 3ANU 17:32
PROVIDERS: ADMIT Internal Medicine; ATTEND Internal Medicine

== ENCOUNTER 2016-11-03 17:31 | Observation (INO) ==
[2016-11-03] MEDS ORDERED: Ipratropium/Albuterol Neb 3 ML IH ONE (17:55)
[2016-11-03] MEDS ORDERED: methylPREDNISolone 125 MG/2 ML VIAL IVP ONE (17:56)
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
[2016-11-03] MEDS ORDERED: Nitroglycerin 0.4 MG TAB.SUBL SL PRN (18:05)
[2016-11-03] MEDS ORDERED: Aspirin 81 MG TAB.CHEW PO ONE (18:05)
[2016-11-03 18:07] LABS: Basophils # 0.1 K/mcL (0.0-0.2); Basophils % 0.4 %; Eosinophils # 0.2 K/mcL (0.0-0.6); Eosinophils % 1.2 %; Hematocrit 37.8 % (37.5-50.1); Hemoglobin 12.5 g/dL (12.9-16.9); Immature Granulocytes % 1.3 % (0-4); Lymphocytes # 2.4 K/mcL (0.6-4.6); Lymphocytes % 17.8 %; Mean Corpuscular HGB Conc 33.1 g/dL (31.6-35.5); Mean Corpuscular Volume 81.6 fL (83.0-100.0); Mean Platelet Volume 8.5 fL (9.4-12.4); Monocytes # 0.8 K/mcL (0.0-1.3); Platelet Count 371 K/mcL (140-400); Red Blood Count 4.63 M/mcL (4.19-5.50); Red Cell Distribution Width 15.6 % (11.5-14.5); Segmented Neutrophils % 73.3 %
[2016-11-03] MEDS ORDERED: 0.9 % Sodium Chloride 1,000 ML IVC ONE (18:14)
[2016-11-03 18:19] LABS: BUN/Creatinine Ratio 11 (6-26); Blood Urea Nitrogen 11 mg/dL (8-26); Calcium 9.9 mg/dL (8.6-10.8); Carbon Dioxide 19 mEq/L (19-29); Chloride 106 mEq/L (98-109); Glucose 99 mg/dL (70-99); Osmolality,Calculated 289 (280-300); Sodium 140 mEq/L (136-145); eGFR For African Americans > 60 (> 60); eGFR For Non-African Americans > 60 (> 60)
[2016-11-03] MEDS ORDERED: Ondansetron 4 MG/2 ML VIAL IVP ONE (18:42)
[2016-11-03 18:48] LABS: INR 1.1; Prothrombin Time 11.7 Seconds (9.4-12.1)
[2016-11-03 18:49] LABS: Albumin 3.6 g/dL (3.5-5.0); Albumin/Globulin Ratio 0.8 (1.1-2.2); Bilirubin,Direct 0.1 mg/dL (0.0-0.5); Bilirubin,Indirect 0.4 mg/dL (0.0-1.2); Bilirubin,Total 0.5 mg/dL (0.2-1.2); Globulin 4.3 g/dL (2.4-3.5); Magnesium 1.8 mg/dL (1.6-2.6); Phosphorous 2.6 mg/dL (2.3-4.7); Total Protein 7.9 g/dL (6.0-8.3)
[2016-11-03 18:51] LABS: Activated Partial Thrombo Time 48.7 Seconds (26.0-36.0)
[2016-11-03 19:06] LABS: Bilirubin,Urine Negative (Negative); Blood,Urine Trace-lysed (Negative); Clarity,Urine Clear (Clear); Color,Urine Yellow (Yellow); Glucose,Urine (UA) Normal (Normal); Ketones,Urine Negative (Negative); Leukocyte Esterase,Urine Negative (Negative); Nitrite,Urine Negative (Negative); Protein,Urine Trace mg/dL (Neg-Trace); Specific Gravity,Urine 1.025 (1.010-1.025); Urobilinogen,Urine Normal (Normal)
[2016-11-03 19:11] LABS: Bacteria,Urine None Seen per hpf (None-Few); Hyaline Casts,Urine None Seen per lpf (None-Few); RBC,Urine 0-3 per hpf (0-3); Squamous Epithelial Cell,Urine Many per lpf (None-Few)
[2016-11-03 19:55] LABS: ABG Base Excess -0.3 mEq/L (-2.0 to 3.0); ABG Oxygen Saturation 94 % (95-98); ABG PCO2 37 mmHg (35-45); ABG PH 7.42 pH Units (7.32-7.45); ABG PO2 68 mmHg (85-104); ABG TCO2 25.1 mEq/L (20-26); Blood Gas FiO2 32 %; Blood Gas Liter Flow 3 L/MIN
[2016-11-03] MEDS ORDERED: Ondansetron 4 MG/2 ML VIAL IVP PRN (22:05)
[2016-11-03] MEDS ORDERED: Naloxone 0.4 MG/ML INJ IVP PRN (22:05)
[2016-11-03] MEDS ORDERED: Albuterol 2.5 MG/3 ML NEBULIZER IH PRN (22:12)
[2016-11-04] MEDS: Ipratropium/Albuterol Neb 3 ML IH SCH ×2 (00:24→03:58)
[2016-11-04 00:36] LABS: Hematocrit 35.5 % (37.5-50.1); Hemoglobin 11.7 g/dL (12.9-16.9); Mean Corpuscular Hemoglobin 27.3 pg (28.0-33.3); Mean Corpuscular Volume 82.8 fL (83.0-100.0); Mean Platelet Volume 8.6 fL (9.4-12.4); Platelet Count 343 K/mcL (140-400); Red Blood Count 4.29 M/mcL (4.19-5.50); Red Cell Distribution Width 15.8 % (11.5-14.5); Segmented Neutrophils % 92.9 %
[2016-11-04 00:37] LABS: Basophils % 0.3 %; Eosinophils % 0.1 %; Immature Granulocytes % 1.3 % (0-4); Lymphocytes # 0.6 K/mcL (0.6-4.6); Lymphocytes % 4.5 %; Monocytes # 0.1 K/mcL (0.0-1.3); Monocytes % 0.9 %; Neutrophils # 12.7 K/mcL (1.6-8.9)
[2016-11-04 00:49] LABS: BUN/Creatinine Ratio 11 (6-26); Blood Urea Nitrogen 14 mg/dL (8-26); Calcium 9.2 mg/dL (8.6-10.8); Carbon Dioxide 20 mEq/L (19-29); Chloride 106 mEq/L (98-109); Glucose 269 mg/dL (70-99); Magnesium 1.9 mg/dL (1.6-2.6); Osmolality,Calculated 296 (280-300); Phosphorous 2.1 mg/dL (2.3-4.7); Potassium 4.4 mEq/L (3.5-4.5); Sodium 138 mEq/L (136-145); eGFR For African Americans > 60 (> 60); eGFR For Non-African Americans 58 (> 60)
[2016-11-04] MEDS: Acetaminophen 325 MG TABLET PO PRN ×2 (01:30→09:58)
[2016-11-04] MEDS ORDERED: *HR* HYDROmorphone (PF) 1 MG/ML SYRINGE IVP PRN (01:33)
[2016-11-04] MEDS ORDERED: Saline Nasal Spray 44 ML BOTTLE NS PRN (01:40)
[2016-11-04] MEDS: clonazePAM 1 MG TABLET PO PRN ×2 (02:02→21:21)
[2016-11-04 04:14] LABS: Basophils % 0.2 %; Hematocrit 34.2 % (37.5-50.1); Hemoglobin 11.3 g/dL (12.9-16.9); Immature Granulocytes % 1.4 % (0-4); Lymphocytes # 0.9 K/mcL (0.6-4.6); Lymphocytes % 7.2 %; Mean Corpuscular Hemoglobin 27.3 pg (28.0-33.3); Mean Corpuscular Volume 82.6 fL (83.0-100.0); Mean Platelet Volume 8.5 fL (9.4-12.4); Monocytes # 0.2 K/mcL (0.0-1.3); Monocytes % 1.4 %; Neutrophils # 11.1 K/mcL (1.6-8.9); Platelet Count 329 K/mcL (140-400); Red Blood Count 4.14 M/mcL (4.19-5.50); Red Cell Distribution Width 15.7 % (11.5-14.5); Segmented Neutrophils % 89.8 %
[2016-11-04] MEDS: Budesonide/Formoterol 160/4.5 MDI IH SCH ×3 (04:17→21:11)
[2016-11-04 04:37] LABS: BUN/Creatinine Ratio 13 (6-26); Blood Urea Nitrogen 15 mg/dL (8-26); Calcium 9.4 mg/dL (8.6-10.8); Carbon Dioxide 19 mEq/L (19-29); Chloride 108 mEq/L (98-109); Chol/HDL Ratio 6.4 (0-4.9); Cholesterol 217 mg/dL (< 200); Glucose 244 mg/dL (70-99); HDL Cholesterol 34 mg/dL (40-59); LDL Cholesterol,Calculated 162 mg/dL (0-99); Magnesium 1.8 mg/dL (1.6-2.6); Osmolality,Calculated 295 (280-300); Potassium 4.8 mEq/L (3.5-4.5); Sodium 138 mEq/L (136-145); Triglycerides 107 mg/dL (< 150); eGFR For African Americans > 60 (> 60); eGFR For Non-African Americans > 60 (> 60)
[2016-11-04] MEDS: *HR* Enoxaparin 40 MG/0.4 ML SYRINGE SQ SCH (05:44)
[2016-11-04] MEDS ORDERED: Regadenoson 0.4 MG/5 ML SYRINGE IVP ONE (06:29)
[2016-11-04] MEDS ORDERED: Pantoprazole 40 MG VIAL IVP SCH (06:30)
--- NOTE | 2016-11-04 06:40 | Internal Med History&Physical ---
Date of Encounter: 11/03/16 Time of Encounter: 22:30 Assessment and Plan (1) Chest pain Current visit: Yes Status: Acute R/O ACS Troponins 0.00, will continue to trend EKG with evidence of Q waves in leads II and aVF, present on prior study 10/12/16 -Sinus Tachycardia -MA interval 167mS Patient has not had similar pain since receiving Nitroglycerin and Dilaudid However, given patient's risk factors, will proceed with stress test Qualifiers: Chest pain type: precordial pain Qualified Code(s): R07.2 - Precordial pain (2) Shortness of breath Current visit: Yes Status: Acute Patient states that his dyspnea is present at baseline BNP <10, doubt CHF He uses 2L home O2 when at rest and titrates up as needed PFTs with Dr. Pierson 10/26/16: FEV1 1.57, 43% Predicted ECHO 09/25/16: LVEF 60% Continue home meds, nebulizers, prn (3) Swelling of both lower extremities Current visit: Yes Status: Acute Leg swelling x 1 week duration BNP <10, doubt CHF ECHO 09/25/16: LVEF 60% Patient has been taking Amlodipine for last 4-5 years Will hold amlodipine for now as this may be etiology of swelling (4) COPD (chronic obstructive pulmonary disease) Current visit: No Status: Chronic continue home medications nebulizers prn Qualifiers: COPD type: unspecified COPD Qualified Code(s): J44.9 - Chronic obstructive pulmonary disease, unspecified (5) DVT prophylaxis Current visit: No Status: Acute Internal Medicine - H&P: HPI Chief complaint: chest pain, leg swelling Admitted From: Emergency Dept Plans for Post Hospital Care: Home History of present illness: Mr. Herring is a 61 year old male who presents to the hospital for acute onset chest pain. Patient states that pain began around 3 PM and is described as a sharp and squeezing pain in the substernal chest. Patient states that pain began after he walked 100 feet and did some physical therapy. Patient was resting at onset of pain. Patient states that he tried nothing for the pain, pain was made better by nothing, and pain was made worse by nothing. Patient drove himself to the ED. Patient states that when he arrived to the ED he was given nitroglycerin and dilaudid, which improved the chest pain. Patient admits associated dyspnea. Patient denies associated diaphoresis, left arm pain , neck pain, epigastric pain. Patient states that he has had bilateral lower leg swelling since one week ago. Swelling is associated with bilateral calf pain, rated 8-9/10. He has tried ibuprofen and Tylenol for the pain which improve it somewhat. Pain occurs when walking. However, it is not improved with sitting. Pain is only improved when he goes to sleep. Patient states that while compression socks improve the swelling, they do not improve pain. Past Med Surg Social Fam HX - Past Medical History Medical history: COPD, GERD, hypertension Psychiatric history: anxiety, depression - Past Surgical History Surgical History: herniorrhaphy, other - Social History Smoking Status: Former smoker Smokeless Tobacco Status: No Alcohol use: rarely Drug use: none - Family History Father Family Member Ethnicity: Non- Living Status: Hx Family Cancer: Yes Mother Adopted: No Family Member Ethnicity: Non- Living Status: Hx Family Cardiac Disorders: Yes ([place]) Hx Family Respiratory Disorders: No Hx Family Cancer: Yes (lung Cancer) Hx Family GI Disorders: No Sister Living Status: Hx Family Cardiac Disorders: Yes (chf) Internal Medicine - H&P: Meds Albuterol Sulfate [Albuterol Inhaler] 2 puff IH Q4HR PRN 03/16/16 [History] Amlodipine Besylate 10 mg PO DAILY 03/16/16 [History] Azelastine 0.1% Nasal [place] [Astelin] 1 spray NS BID 03/16/16 [History] Budesonide/Formoterol 160/4.5 [Symbicort 160/4.5] 2 puff IH BIDR 03/16/16 [ History] Cetirizine HCl [Zyrtec] 10 mg PO DAILY 03/16/16 [History] ClonazePAM [Klonopin] 1 mg PO BID PRN 03/16/16 [History] Docusate [Colace] 100 mg PO BID PRN 03/16/16 [History] Ergocalciferol (VITAMIN D2) [Vitamin D] 400 unit PO DAILY 03/16/16 [History] Esomeprazole Magnesium [Nexium] 40 mg PO BID 03/16/16 [History] Fluticasone Propionate Nasal [Flonase] 100 mcg NS DAILY 03/16/16 [History] Ketoconazole Shampoo [Nizoral Shampoo] 1 appl TP 3XW 03/16/16 [History] Polyethylene Glycol 3350 [MiraLAX] 17 gm PO DAILY 03/16/16 [History] Psyllium Seed (with Sugar) [Metamucil Powder] 1 each PO DAILY 03/16/16 [History] Roflumilast [Daliresp] 500 mcg PO DAILY 03/16/16 [History] Sodium Chloride [[place] Saline] 1 spray NS BID PRN 03/16/16 [History] Albuterol Neb [Proventil Neb] 2.5 mg IH Q2-4H PRN 09/21/16 [History] GuaiFENesin ER [Mucinex] 1,200 mg PO BID PRN #40 tbbp.12hr 09/30/16 [Rx] Metoprolol [Lopressor] 12.5 mg PO BID #30 tablet 09/30/16 [Rx] Montelukast [Singulair] 10 mg PO HS #30 tablet 09/30/16 [Rx] L. Acidophilus/Pectin, [place] [Acidophilus Probiotic Capsule] 1 each PO DAILY [History] Metoclopramide [Reglan] 10 mg PO ACHS 11/03/16 [History] Umeclidinium [place] [Incruse Ellipta] 62.5 mcg IH DAILY 11/03/16 [History] Allergies morphine Allergy (Verified 09/17/16 08:27) Difficulty Breathing sulfamethoxazole [From Bactrim] Allergy (Verified 10/12/16 20:21) Rash trimethoprim [From Bactrim] Allergy (Verified 10/12/16 20:21) Rash aspirin Adverse Reaction (Verified 03/16/16 17:11) Nausea codeine Adverse Reaction (Verified 03/16/16 17:11) Nausea All Systems PM: A 10-system review of systems was performed and is negative for pertinent findings except as documented above in the HPI. - Constitutional Constitutional: no chills, no fever(s) - Cardiovascular Cardiovascular ROS IM: chest pain, dyspnea, edema, irregular heart rhythm (2 days ago without chest dyscomfort), no diaphoresis - Respiratory Respiratory: cough, dyspnea on exertion - Gastrointestinal Gastrointestinal: constipation (chronic), heartburn (chronic) - Musculoskeletal Musculoskeletal ROS IM: myalgias - Constitutional Vitals: Temp Pulse Resp BP Pulse Ox 98.0 F 102 16 112/63 95 11/04/16 04:29 11/04/16 04:29 11/04/16 04:29 11/04/16 04:29 11/04/16 04:29 General appearance: Present: A&O X 3, morbidly obese, answers questions appropriately - Neck Neck exam general surgery: Present: full ROM - Respiratory Respiratory exam: Present: CTAB. Absent: rhonchi, wheezes - Cardiovascular Cardiovascular exam: Present: distant heart sounds, +S1, +S2, tachycardia - GI/Abdominal GI/Abdominal exam: Present: normal bowel sounds, soft Additional comments: protuberant abdomen - Extremities Exam Extremities exam: Present: pedal edema (2+ extending from knees to feet, no erythema, tender to palpation of bilateral legs. Right foot with skin graft from previous injury), warm Internal Med - H&P Results - Labs CBC & Chem 7: 11/04/16 04:02 11/04/16 04:02 Labs: Short CBC 11/04/16 11/04/16 Range/Units 00:15 04:02 WBC 13.7 H 12.4 H (4.3-11.1) K/mcL Hgb 11.7 L 11.3 L (12.9-16.9) g/dL Hct 35.5 L 34.2 L (37.5-50.1) % Plt Count 343 329 (140-400) K/mcL Neutrophils # 12.7 H 11.1 H (1.6-8.9) K/mcL BMP 11/04/16 11/04/16 00:15 04:02 Sodium 138 138 Potassium 4.4 4.8 H Chloride 106 108 Carbon Dioxide 20 19 BUN 14 15 Creatinine 1.25 1.19 Glucose 269 H 244 H Calcium 9.2 9.4 Cardiac Enzymes 11/04/16 11/04/16 Range/Units 00:15 04:02 Troponin I 0.00 0.00 (0-0.03) ng/mL - Attending Attestation I examined this patient and my medical decision-making was reviewed with the HEAD IRRIGATOR/PA/Advanced Practice Nurse/Resident Physician. I agree with the documented findings, disposition and treatment plan as described except to the extent set forth below.
[2016-11-04] MEDS ORDERED: Lactobacillus 1 EACH CAP.SPRINK PO SCH (09:00)
[2016-11-04] MEDS: Psyllium 1 PACKET POWD.PACK PO SCH (09:46)
[2016-11-04] MEDS: Loratadine 10 MG TABLET PO SCH (09:46)
[2016-11-04] MEDS: Fluticasone Propionate Nasal 50 MCG/SPRAY BOTTLE NS SCH (09:47)
--- NOTE | 2016-11-04 11:00 | Electrocardiograph Report ---
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
--- NOTE | 2016-11-04 11:01 | Electrocardiograph Report ---
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
[2016-11-04] MEDS: Ipratropium/Albuterol Neb 3 ML IH PRN ×2 (11:16→21:14)
[2016-11-04] MEDS: Azelastine 0.1% Nasal Spray 30 ML BOTTLE NS SCH ×2 (12:40→21:21)
--- NOTE | 2016-11-04 15:34 | Internal Med Progress Note ---
Date of Encounter: 11/04/16 Time of Encounter: 15:31 - Assessment and plan (1) Chest pain Current Visit: Yes Status: Acute Assessment and plan: The patient has been admitted for chest pain, acute coronary syndrome was ruled out with negative troponins. Bilateral leg swelling, we will obtain a venous duplex of the lower extremities. The brain natruretic peptide was within normal limits, however is an unreliable marker in the setting of obesity. Patient has underlying sleep apnea, we will order BiPAP. Continue with DVT prophylaxis with Lovenox. Follow stress test results. Qualifiers: Chest pain type: precordial pain Qualified Code(s): R07.2 - Precordial pain (2) COPD exacerbation Current Visit: Yes Status: Acute (3) Swelling of both lower extremities Current Visit: Yes Status: Acute (4) Obstructive sleep apnea Current Visit: No Status: Chronic - Time Spent With Patient 25 - 35 minutes - Subjective Interval history: The patient was seen and examined on rounds. His niece was present during this encounter. Patient is obese, he was breathing with nasal cannula. - Constitutional Vitals: Temp Pulse Resp BP Pulse Ox 98.0 F 100 22 125/61 94 L 11/04/16 15:27 11/04/16 15:27 11/04/16 15:27 11/04/16 15:27 11/04/16 15:27 General appearance: Present: A&O X 3, morbidly obese, answers questions appropriately - Head Head exam: Present: atraumatic, normocephalic - Eye Eye exam: Present: PERRL, conjuntiva pink, sclera anicteric Pupils: Present: PERRL - Neck Neck exam general surgery: Present: supple, trachea midline. Absent: lymphadenopathy - Respiratory Respiratory exam: Present: decreased breath sounds. Absent: accessory muscle use, rales, rhonchi, wheezes - Cardiovascular Cardiovascular exam: Present: RRR, +S1, +S2. Absent: diastolic murmur, gallop, rubs, systolic murmur - GI/Abdominal GI/Abdominal exam: Present: normal bowel sounds, soft, no peritoneal signs. Absent: distended, tenderness - Extremities Exam Extremities exam: Present: warm, radial pulses palpable and symetrical. Absent : calf tenderness, cyanotic, pedal edema - Neurological Exam Neurological exam: Present: CN II-XII intact, oriented X3, no focal deficits. Absent: pronater drift, facial droop, speech deficit - Skin Skin exam: Present: dry, intact Internal Medicine: Result - Labs CBC & Chem 7: 11/04/16 04:02 11/04/16 04:02 Labs: Short CBC 11/04/16 11/04/16 Range/Units 00:15 04:02 WBC 13.7 H 12.4 H (4.3-11.1) K/mcL Hgb 11.7 L 11.3 L (12.9-16.9) g/dL Hct 35.5 L 34.2 L (37.5-50.1) % Plt Count 343 329 (140-400) K/mcL Neutrophils # 12.7 H 11.1 H (1.6-8.9) K/mcL BMP 11/04/16 11/04/16 00:15 04:02 Sodium 138 138 Potassium 4.4 4.8 H Chloride 106 108 Carbon Dioxide 20 19 BUN 14 15 Creatinine 1.25 1.19 Glucose 269 H 244 H Calcium 9.2 9.4 Cardiac Enzymes 11/04/16 11/04/16 11/04/16 Range/Units 00:15 04:02 10:03 Troponin I 0.00 0.00 0.00 (0-0.03) ng/mL - ABG Interpretation ABG results: ABG ABG pH 7.42 pH Units (7.32-7.45) 11/03/16 19:46 ABG pCO2 37 mmHg (35-45) 11/03/16 19:46 ABG pO2 68 mmHg (85-104) L 11/03/16 19:46 ABG O2 Saturation 94 % (95-98) L 11/03/16 19:46 PT/INR, D-dimer PT 11.7 Seconds (9.4-12.1) 11/03/16 17:45 Consult Discharge Plan - Plan Referrals: Bryce Jones DO [Primary Care Provider] -
[2016-11-04] MEDS ORDERED: Ketorolac 15 MG/ML VIAL IVP ONE (17:31)
[2016-11-05] MEDS: *HR* Enoxaparin 40 MG/0.4 ML SYRINGE SQ SCH (06:32)
[2016-11-05 06:44] VITALS: BP 118/71
[2016-11-05] MEDS: Budesonide/Formoterol 160/4.5 MDI IH SCH (07:47)
[2016-11-05] MEDS: Ipratropium/Albuterol Neb 3 ML IH PRN (07:47)
[2016-11-05] MEDS ORDERED: Ketoconazole Shampoo 120 ML BOTTLE TP SCH (09:00)
[2016-11-05] MEDS: Loratadine 10 MG TABLET PO SCH (09:01)
[2016-11-05] MEDS: Azelastine 0.1% Nasal Spray 30 ML BOTTLE NS SCH (09:02)
[2016-11-05] MEDS: Fluticasone Propionate Nasal 50 MCG/SPRAY BOTTLE NS SCH (09:02)
[2016-11-05] MEDS: Psyllium 1 PACKET POWD.PACK PO SCH (09:02)
--- NOTE | 2016-11-05 10:05 | Nuclear Medicine Stress Report ---
Regadenoson Nuclear 2 day Name: Don Herring Date of Study: 11/04/2016 Date: 1955 Ht: 71.0 in Medical Record#: [id number] Age: 61 Wt: 302.0 lb Gender: Male Order #: [id number] Location: [facility] Room: [facility] Supervising Provider: Maykel Kruse CNP Reading Physician: Erasto Gorman DO, TANESHA HARDY FASNC Ordering Physician: Milena Yi CNP Primary Care Physician: Bryce Jones DO Stress Technologist: Jovi Madrigal CAR RENTAL SALES ASSISTANT, CCT Student Ministry Pastor: John Andres Indications: Chest Pain Impression: Pharmacologic stress ECG is negative for ischemia at level of heart rate achieved. Gated EF = 61%. Medium size, mild to moderate intensity, partially reversible inferior perfusion defect. Although I suspect this defect is due to artifact, ischemia cannot be excluded given partial reversibility. Clinical correlation suggested. History: Hypertension Stress Test Summary: Stress Test Type: Pharmacologic Regadenoson 0.4mg/5ml given IV Baseline Information: Initial Heart Rate: 97 Blood Pressure: 126/76 Stress Information: Stress Time: 4 min 00 sec Test Terminated Due to (primary): Completed Protocol Maximum Blood Pressure: 124/70 Maximum Heart Rate: 120 Percent Maximum Heart Rate Achieved: 77 Double Product: 14,880 METS Reached: 1 Symptoms: Shortness of breath Nuclear Summary: SPECT myocardial perfusion imaging using Tc99m Sestamibi given intravenously was performed at rest and following cardiac stress testing. The resting images were obtained following initial dose of 30.2 mCi. Following stress an additional dose of 35.3 mCi was given at peak exercise or 30 seconds post regadenoson infusion. Medication Given: Time Medication Dose Units Route Findings: Stress Note * Resting ECG demonstrated normal sinus rhythm. * No baseline arrhythmias were noted. * Pharmacologic stress ECG is negative for ischemia at level of heart rate achieved. * No arrhythmias were noted during stress. * Patient had no chest pain during stress. * Normal hemodynamic responses to pharmacologic stress. Study Quality * Study quality is average. Gated EF % * Gated EF = 61%. Left Ventricle * LVEDV = 127 mL. Inferior Perfusion Rest * The inferior segments show a mild to moderate reduction in perfusion. Inferior Perfusion Stress * The inferior segments show a moderate reduction in perfusion. TID * No evidence of transient ischemic dilatation. TID ratio = 0.91. Lung Uptake * There is no evidence of increase lung uptake. Updated by Erasto Gorman DO, ANTONY, TANESHA, JOSR on 11/05/2016 10:00:37 AM electronically signed on 11/05/2016 10:02:10 AM with status of Final
--- NOTE | 2016-11-05 11:14 | Discharge Summary ---
Date of Encounter: 11/05/16 Time of Encounter: 11:12 - Discharge Diagnosis (1) Chest pain Priority: Primary Status: Acute Qualifiers: Chest pain type: precordial pain Qualified Code(s): R07.2 - Precordial pain (2) COPD exacerbation Priority: Secondary Status: Acute (3) Swelling of both lower extremities Priority: Secondary Status: Acute (4) Obstructive sleep apnea Priority: Secondary Status: Chronic - Discharge Medications Prescriptions: Aspirin [Lo-Dose Aspirin EC] 81 mg PO DAILY #30 tablet.dr Home Medications: Albuterol Sulfate [Albuterol Inhaler] 2 puff IH Q4HR PRN 03/16/16 [History] Amlodipine Besylate 10 mg PO DAILY 03/16/16 [History] Azelastine 0.1% Nasal [place] [Astelin] 1 spray NS BID 03/16/16 [History] Budesonide/Formoterol 160/4.5 [Symbicort 160/4.5] 2 puff IH BIDR 03/16/16 [ History] Cetirizine HCl [Zyrtec] 10 mg PO DAILY 03/16/16 [History] ClonazePAM [Klonopin] 1 mg PO BID PRN 03/16/16 [History] Docusate [Colace] 100 mg PO BID PRN 03/16/16 [History] Ergocalciferol (VITAMIN D2) [Vitamin D] 400 unit PO DAILY 03/16/16 [History] Esomeprazole Magnesium [Nexium] 40 mg PO BID 03/16/16 [History] Fluticasone Propionate Nasal [Flonase] 100 mcg NS DAILY 03/16/16 [History] Ketoconazole Shampoo [Nizoral Shampoo] 1 appl TP 3XW 03/16/16 [History] Polyethylene Glycol 3350 [MiraLAX] 17 gm PO DAILY 03/16/16 [History] Psyllium Seed (with Sugar) [Metamucil Powder] 1 each PO DAILY 03/16/16 [History] Roflumilast [Daliresp] 500 mcg PO DAILY 03/16/16 [History] Sodium Chloride [[place] Saline] 1 spray NS BID PRN 03/16/16 [History] Albuterol Neb [Proventil Neb] 2.5 mg IH Q2-4H PRN 09/21/16 [History] GuaiFENesin ER [Mucinex] 1,200 mg PO BID PRN #40 tbbp.12hr 09/30/16 [Rx] Metoprolol [Lopressor] 12.5 mg PO BID #30 tablet 09/30/16 [Rx] Montelukast [Singulair] 10 mg PO HS #30 tablet 09/30/16 [Rx] L. Acidophilus/Pectin, [place] [Acidophilus Probiotic Capsule] 1 each PO DAILY [History] Metoclopramide [Reglan] 10 mg PO ACHS 11/03/16 [History] Umeclidinium [place] [Incruse Ellipta] 62.5 mcg IH DAILY 11/03/16 [History] Aspirin [Lo-Dose Aspirin EC] 81 mg PO DAILY #30 tablet. 11/05/16 [Rx] Allergies/Adverse Reactions: Allergies morphine Allergy (Verified 09/17/16 08:27) Difficulty Breathing sulfamethoxazole [From Bactrim] Allergy (Verified 10/12/16 20:21) Rash trimethoprim [From Bactrim] Allergy (Verified 10/12/16 20:21) Rash aspirin Adverse Reaction (Verified 03/16/16 17:11) Nausea codeine Adverse Reaction (Verified 03/16/16 17:11) Nausea Procedures/tests Complete & Pending: Procedures Performed prior 72 hours Category Date Time Status NM [place] perf SPECT multi [NM] Routine Exams 11/04/16 05:21 Taken SP pharm nuclear stress Routine Y 11/04/16 08:01 Completed Venous Doppler [EV venous imaging LE BI] Routine Y 11/04/16 12:17 Completed Date of admission: 11/03/16 20:02 Primary care physician: Bryce Madrid Consults: 11/04/16 05:18 Consult to Refueling Ramp Supervisor [CONS] Routine Reason for SW Consult: Discharge plans. Discharging clinician: Aiden Marsh Anticipated date of discharge: 11/05/16 - Patient Status Disposition: Home, Self-Care Condition: Fair Functional capacity at discharge: independent ambulation Overall status at discharge: patient is back to baseline - Discharge Instructions Follow Up With: Bryce Jones DO [Primary Care Provider] - Additional Instructions: cardiology follow up. - Diet and Activity Activity: increase activity as tolerated Diet: advance to your usual diet Interval History: Mr. Herring is a 61 year old male who presents to the hospital for acute onset chest pain. Patient states that pain began around 3 PM and is described as a sharp and squeezing pain in the substernal chest. Patient states that pain began after he walked 100 feet and did some physical therapy. Patient was resting at onset of pain. Patient states that he tried nothing for the pain, pain was made better by nothing, and pain was made worse by nothing. Patient drove himself to the ED. Patient states that when he arrived to the ED he was given nitroglycerin and dilaudid, which improved the chest pain. Patient admits associated dyspnea. Patient denies associated diaphoresis, left arm pain , neck pain, epigastric pain. Patient states that he has had bilateral lower leg swelling since one week ago. Swelling is associated with bilateral calf pain, rated 8-9/10. He has tried ibuprofen and Tylenol for the pain which improve it somewhat. Pain occurs when walking. However, it is not improved with sitting. Pain is only improved when he goes to sleep. Patient states that while compression socks improve the swelling, they do not improve pain. Hospital course: Mr. Herring is a 61 year old male The patient has been admitted for chest pain, acute coronary syndrome was ruled out with negative troponins. Bilateral leg swelling, we will obtain a venous duplex of the lower extremities. The brain natruretic peptide was within normal limits, however is an unreliable marker in the setting of obesity. Patient has underlying sleep apnea, BiPAP was used while inhouse. DVT was reuled out with a negative venous duplex. Stress negative negative for ishcemia. Patient denies chest pain at this point, will discharge him home today, will continue with po aspirin and follow up as outpatient. - Time Spent with Patient Total time spent providing and/or coordinating discharge services: Greater than 30 minutes - Constitutional Vitals: Temp Pulse Resp BP Pulse Ox 97.5 F L 81 17 118/71 97 11/05/16 06:41 11/05/16 06:41 11/05/16 07:49 11/05/16 06:41 11/05/16 07:49 General appearance: Present: A&O X 3, morbidly obese, answers questions appropriately - Head Head exam: Present: atraumatic, normocephalic - Eye Eye exam: Present: PERRL, conjuntiva pink, sclera anicteric Pupils: Present: PERRL - Neck Neck exam general surgery: Present: supple, trachea midline. Absent: lymphadenopathy - Respiratory Respiratory exam: Present: CTAB. Absent: accessory muscle use, rales, rhonchi, wheezes - Cardiovascular Cardiovascular exam: Present: RRR, +S1, +S2. Absent: diastolic murmur, gallop, rubs, systolic murmur - GI/Abdominal GI/Abdominal exam: Present: normal bowel sounds, soft, no peritoneal signs. Absent: distended, tenderness - Extremities Exam Extremities exam: Present: warm, radial pulses palpable and symetrical. Absent : calf tenderness, cyanotic, pedal edema - Neurological Exam Neurological exam: Present: CN II-XII intact, oriented X3, no focal deficits. Absent: pronater drift, facial droop, speech deficit - Skin Skin exam: Present: dry, intact
--- NOTE | 2016-11-05 16:21 | Venous Imaging Report ---
LE Venous Duplex Patient Name:Don Herring Order Number:[id number] Procedure Date:11/04/2016 Date:1955ge:61 yrs Gender:Male Location:[facility] Room #: 3B49 Senior Chemical Process Engineer:Lisa Rodriguez RVT Referring MD:Aiden Marsh MD cafe site attendant:Bryce Jones DO Reading MD:Maninder Ross MD , FACS Secondary Indications: Impressions: Bilateral lower extremity: normal superficial and deep exam. Findings Venous Duplex Results: Right: Venous imaging of the lower extremity reveals full patency and normal vessel compressibility of the right distal iliac, right common femoral, right superficial femoral, right popliteal, right posterior tibial, right peroneal, right great saphenous and right lesser saphenous. Doppler signals in the evaluated veins were normal. Left: Venous imaging of the lower extremity reveals full patency and normal vessel compressibility of the left distal iliac, left common femoral, left superficial femoral, left popliteal, left posterior tibial, left peroneal, left great saphenous and left lesser saphenous. Doppler signals in the evaluated veins were normal. Prior Study: No prior study available for comparison. Updated by Maninder Ross MD, FACS on 11/05/2016 4:17:28 PM Maninder Ross MD electronically signed on 11/05/2016 4:17:56 PM with status of Final
== END 2016-11-05 12:42 | disposition home or self-care (01) ==
LOC: 3BNU 17:31 → EMEROO 17:31 → SUATTDRO 20:02 → 3BNU 20:05
PROVIDERS: ADMIT Family Medicine; ATTEND Internal Medicine

== ENCOUNTER 2016-11-20 04:54 | Inpatient (IN) ==
[2016-11-20] MEDS ORDERED: methylPREDNISolone 125 MG/2 ML VIAL IVP ONE (04:57)
[2016-11-20] MEDS ORDERED: Ipratropium/Albuterol Neb 3 ML IH ONE (04:58)
[2016-11-20] MEDS ORDERED: Ipratropium/Albuterol Neb 3 ML ONE (04:59)
--- NOTE | 2016-11-20 05:02 | Emergency Department Note ---
Disposition Clinical Impression: Acute exacerbation of chronic obstructive airways disease, Shortness of breath , Hypoxia, Wheezing on expiration Disposition: Still a Patient Condition: Fair Referrals: Bryce Jones DO [Primary Care Provider] - Forms: ED Satisfaction Letter Time of Disposition: 06:58 General Adult HPI - General Chief complaint: ED Chest Pain Stated complaint: CP/SHUBHAM Time Seen by Provider: 11/20/16 04:57 Source: patient, EMS Mode of arrival: EMS Limitations: no limitations Nursing Notes Reviewed: Yes Vital Signs Reviewed: Yes - History of Present Illness HPI Narrative: Patient presents emergency room for evaluation of shortness of breath. Onset was over the last couple days. He has been seen earlier this week for similar presentation. He was discharged home with medication regimen. His back today because symptoms have not resolved has been failing with his outpatient medicines. Onset (ago): day(s) (7 days) Radiation: non-radiation Pain Severity: moderate Pain Scale: 6 Quality: aching Consistency: constant Improves with: nothing Worsens with: nothing Associated symptoms: Reports: cough, shortness of breath Treatments Prior to Arrival: none - Related Data Home Medications Medication Instructions Recorded Confirmed Albuterol Sulfate [Albuterol 2 puff IH Q4HR PRN 03/16/16 11/03/16 Inhaler] Amlodipine Besylate 10 mg PO DAILY 03/16/16 11/03/16 Azelastine 0.1% Nasal [place] 1 spray NS BID 03/16/16 11/03/16 [Astelin] Budesonide/Formoterol 160/4.5 2 puff IH BIDR 03/16/16 11/03/16 [Symbicort 160/4.5] Cetirizine HCl [Zyrtec] 10 mg PO DAILY 03/16/16 11/03/16 ClonazePAM [Klonopin] 1 mg PO BID PRN 03/16/16 11/03/16 Docusate [Colace] 100 mg PO BID PRN 03/16/16 11/03/16 Ergocalciferol (VITAMIN D2) 400 unit PO DAILY 03/16/16 11/03/16 [Vitamin D] Esomeprazole Magnesium [Nexium] 40 mg PO BID 03/16/16 11/03/16 Fluticasone Propionate Nasal 100 mcg NS DAILY 03/16/16 11/03/16 [Flonase] Ketoconazole Shampoo [Nizoral 1 appl TP 3XW 03/16/16 11/03/16 Shampoo] Polyethylene Glycol 3350 [MiraLAX] 17 gm PO DAILY 03/16/16 11/03/16 Psyllium Seed (with Sugar) 1 each PO DAILY 03/16/16 11/03/16 [Metamucil Powder] Roflumilast [Daliresp] 500 mcg PO DAILY 03/16/16 11/03/16 Sodium Chloride [[place] Saline] 1 spray NS BID PRN 03/16/16 11/03/16 Albuterol Neb [Proventil Neb] 2.5 mg IH Q2-4H PRN 09/21/16 11/03/16 L. Acidophilus/Pectin, [place] 1 each PO DAILY 11/03/16 11/03/16 [Acidophilus Probiotic Capsule] Metoclopramide [Reglan] 10 mg PO ACHS 11/03/16 11/03/16 Umeclidinium [place] [Incruse 62.5 mcg IH DAILY 11/03/16 11/03/16 Ellipta] Previous Rx's Medication Instructions Recorded GuaiFENesin ER [Mucinex] 1,200 mg PO BID PRN #40 tbbp.12hr 09/30/16 Metoprolol [Lopressor] 12.5 mg PO BID #30 tablet 09/30/16 Montelukast [Singulair] 10 mg PO HS #30 tablet 09/30/16 Aspirin [Lo-Dose Aspirin EC] 81 mg PO DAILY #30 tablet. 11/05/16 Azithromycin [Azithromycin 6-Tab 250 mg PO PER PKG DI #6 tab 11/17/16 Pack] PredniSONE 40 mg PO DAILY #10 tablet 11/17/16 Allergies Allergy/AdvReac Type Severity Reaction Status Date / Time morphine Allergy Difficulty Verified 09/17/16 08:27 Breathing sulfamethoxazole Allergy Rash Verified 10/12/16 20:21 [From Bactrim] trimethoprim [From Bactrim] Allergy Rash Verified 10/12/16 20:21 codeine AdvReac Nausea Verified 03/16/16 17:11 All systems ED: reviewed and negative except as stated. Constitutional: Denies: fever Cardiovascular: Reports: dyspnea on exertion, orthopnea. Denies: chest pain, palpitations Respiratory: Denies: dyspnea, wheezes Gastrointestinal: Denies: nausea, vomiting Genitourinary: Denies: dysuria, frequency Past Medical History - Past Medical History Attestation: Yes The following information was validated with the patient. Source: patient Medical history: Reports: COPD, diabetes, GERD, hypertension Surgical history: Reports: herniorrhaphy, other Psychiatric history: Reports: anxiety, depression - Social History Smoking Status: Former smoker Smokeless Tobacco Status: No Alcohol use: Reports: rarely Drug use: Reports: none Physical Exam - General Limitations: no limitations General appearance: alert, in no apparent distress, in distress - Neck Neck exam: Present: normal inspection - Chest Chest inspection: Present: normal inspection, symmetric chest wall rise - Respiratory Respiratory exam: Present: respiratory distress, wheezes (Diffuse bilateral wheezing), accessory muscle use. Absent: stridor - Cardiovascular Cardiovascular exam: Present: normal rhythm, tachycardia, normal heart sounds - Abdominal Exam Abdominal exam: Present: soft - Extremities Exam Extremities exam: Present: normal inspection, full ROM. Absent: tenderness, pedal edema - Back Exam Back exam: Present: normal inspection, full ROM. Absent: tenderness - Neurological Exam Neurological exam: Present: alert, oriented X3, CN II-XII intact - Psychiatric Psychiatric exam: Present: normal affect, normal mood - Skin Skin exam: Present: warm, dry, intact, normal color Course Course Narrative: Patient seen and examined some arrival. See history of present illness. 61- year-old male presents today for a repeat evaluation of COPD exacerbation. He was seen several days ago in this emergency room and treated with outpatient management with antibiotics and steroid burst. He was discharged home at that time. He had been doing R [place] until yesterday. He was seen by his nuclear unit operator in outpatient office visit. He is provided with a shot of steroids at that time. Patient was at home last 24 hours with progressively worsening symptoms. He has oxygen and BiPAP at home for which she has been using appropriately. Denies any other medical illnesses at this time. He took his antibiotics as prescribed. Vital signs on presentation show tachycardia tachypnea and stable pulse ox on his normal oxygen at this time. Patient is audibly wheezing with increased work of breathing accessory muscles on presentation. Lungs have diffuse wheezing bilaterally on expiration. Heart is regular. Abdomen is soft. No pulsatile age. He moves all 4 extremities. He has no specific signs of pitting edema in the lower extremities. Patient says that he feels like he 7 worsening of his COPD at this time. His attempted to treat as an outpatient and does not feel like getting any better. Patient will have 3 duo nebs ordered steroids provided as well as chest x-ray EKG and troponin. Basic COPD evaluation of a completed. Further intervention and disposition were determined. Patient does have very coarse wheezing on exam. He will most likely an admission to the hospital this time for definitive management of failed outpatient treatment COPD - Reevaluation(s) Reevaluation #1: Patient still has increased work of breathing and diffuse wheezing. 3 more albuterol treatments were at this time along with BiPAP. We will attempt to control symptoms and discuss disposition Time: 05:50 Reevaluation #2: Patient's breathing is still tight after being placed on BiPAP and albuterol. He then described some aspect of blood in his sputum. Coming in. Because of his symptoms history and presentation CT angiogram ordered at this time. Kidney function evaluated and appears to be appropriate. Imaging ordered at this time Time: 06:01 Reevaluation #3: Bedside reevaluation the patient shows still stable wheezing bilaterally. A reviewed the patient's evaluation by his nuclear unit operator yesterday. He said that he had not actually been able to start his antibiotic as it was prescribed 3 days ago. First dose was actually yesterday. Patient will be given first dose of IV antibiotics here to cover for what was thought to be a bronchitis with COPD exacerbation. Patient otherwise is been treated with 3 DuoNeb's, as well as 3 albuterol nebulizer treatments. Breathing is less labored than before but patient still feels short of breath. CT angiogram results pending. Admission process to be completed once the official read is on the chart. Additional Reevaluation(s): CT results still pending at this time. Patient was signed out to the daytime physicians Dr. Leahy and Dr. Davenport will follow up on the imaging results and that the patient for COPD flare with possible bronchitis or other issues at this time patient in stable medical condition at the time of my shift ending. Vital Signs Temperature 97.6 F 11/20/16 05:01 Pulse Rate 101 11/20/16 05:01 Respiratory Rate 22 11/20/16 05:01 Blood Pressure 120/69 11/20/16 05:01 O2 Sat by Pulse Oximetry 96 11/20/16 05:01 Temperature 97.6 F 11/20/16 05:01 Pulse Rate 97 11/20/16 06:34 Respiratory Rate 18 11/20/16 06:34 Blood Pressure 128/69 11/20/16 06:34 O2 Sat by Pulse Oximetry 96 11/20/16 06:34 Oxygen Delivery Oxygen Delivery Bipap Medical Decision Making - MDM Narrative Medical decision making narrative: COPD exacerbation, hypoxia, increased work of breathing - Medical Records Medical records reviewed: Yes I reviewed the patient's medical records. - Lab Data Lab results reviewed: Yes I reviewed the patient's lab results. Result diagrams: 11/20/16 05:25 11/20/16 05:25 Lab Results 11/20/16 11/20/16 11/20/16 Range/Units 05:25 05:25 05:25 WBC 13.0 H (4.3-11.1) K/mcL RBC 4.44 (4.19-5.50) M/mcL Hgb 11.7 L (12.9-16.9) g/dL Hct 37.1 L (37.5-50.1) % MCV 83.6 (83.0-100.0) fL MCH 26.4 L (28.0-33.3) pg MCHC 31.5 L (31.6-35.5) g/dL RDW 16.1 H (11.5-14.5) % Plt Count 383 (140-400) K/mcL MPV 8.6 L (9.4-12.4) fL Immature Gran % 0.8 (0-4) % Seg Neutrophils % 67.1 % Lymphocytes % 21.2 % Monocytes % 10.3 % Eosinophils % 0.2 % Basophils % 0.4 % Neutrophils # 8.7 (1.6-8.9) K/mcL Lymphocytes # 2.8 (0.6-4.6) K/mcL Monocytes # 1.3 (0.0-1.3) K/mcL Eosinophils # 0.0 (0.0-0.6) K/mcL Basophils # 0.1 (0.0-0.2) K/mcL Sodium 140 (136-145) mEq/L Potassium 3.6 (3.5-4.5) mEq/L Chloride 106 (98-109) mEq/L Carbon Dioxide 22 (19-29) mEq/L BUN 23 (8-26) mg/dL Creatinine 1.00 (0.72-1.25) mg/dL Est GFR ( Amer) > 60 (> 60) Est GFR (Non-Af Amer) > 60 (> 60) BUN/Creatinine Ratio 23 (6-26) Glucose 119 H (70-99) mg/dL Calculated Osmolality 295 (280-300) Calcium 9.6 (8.6-10.8) mg/dL Troponin I 0.00 (0-0.03) ng/mL B-Natriuretic Peptide (0-100) pg/mL 11/20/16 Range/Units 05:25 WBC (4.3-11.1) K/mcL RBC (4.19-5.50) M/mcL Hgb (12.9-16.9) g/dL Hct (37.5-50.1) % MCV (83.0-100.0) fL MCH (28.0-33.3) pg MCHC (31.6-35.5) g/dL RDW (11.5-14.5) % Plt Count (140-400) K/mcL MPV (9.4-12.4) fL Immature Gran % (0-4) % Seg Neutrophils % % Lymphocytes % % Monocytes % % Eosinophils % % Basophils % % Neutrophils # (1.6-8.9) K/mcL Lymphocytes # (0.6-4.6) K/mcL Monocytes # (0.0-1.3) K/mcL Eosinophils # (0.0-0.6) K/mcL Basophils # (0.0-0.2) K/mcL Sodium (136-145) mEq/L Potassium (3.5-4.5) mEq/L Chloride (98-109) mEq/L Carbon Dioxide (19-29) mEq/L BUN (8-26) mg/dL Creatinine (0.72-1.25) mg/dL Est GFR ( Amer) (> 60) Est GFR (Non-Af Amer) (> 60) BUN/Creatinine Ratio (6-26) Glucose (70-99) mg/dL Calculated Osmolality (280-300) Calcium (8.6-10.8) mg/dL Troponin I (0-0.03) ng/mL B-Natriuretic Peptide < 10 (0-100) pg/mL - Radiology Data Radiology results reviewed: Yes I reviewed the patient's radiology results. Chest x-ray shows stable pulmonary evaluation with left lower lobe effusion - EKG Data EKG #1 EKG attestation: Yes I reviewed and interpreted this EKG. EKG shows normal: sinus rhythm, axis, intervals, QRS complexes, ST-T waves Rate: normal Rhythm: NSR [place]/QRS: normal When compared to previous EKG there are: no significant changes Interpretation: no acute changes, unchanged when compared to prior tracing (date ) (09/24/12) Critical Care Time Critical Care Time: Yes Total Critical Care Time: 45 Attestation: Independent of medical intervention and procedures Attestation Statement - Attestation Attestation: I examined this patient and my medical decision-making was reviewed with the FLARE BREAKER/PA/Advanced Practice Nurse/Resident Physician. I agree with the documented findings, disposition and treatment plan as described except to the extent set forth below. Patient presents to the emergency department with a chief complaint of difficulty in breathing. Coughing up yellow phlegm. Patient states he was here 2 days ago and started on a Z-Erick and prednisone. States he is worse. On exam he is tachypneic. Diffuse expiratory wheezing. Plan. Patient with a COPD exacerbation that has failed outpatient treatment. Patient will be admitted.
[2016-11-20] MEDS ORDERED: Acetaminophen 325 MG TABLET PO ONE (05:29)
[2016-11-20 05:30] LABS: Basophils # 0.1 K/mcL (0.0-0.2); Basophils % 0.4 %; Eosinophils % 0.2 %; Hematocrit 37.1 % (37.5-50.1); Hemoglobin 11.7 g/dL (12.9-16.9); Immature Granulocytes % 0.8 % (0-4); Lymphocytes # 2.8 K/mcL (0.6-4.6); Lymphocytes % 21.2 %; Mean Corpuscular HGB Conc 31.5 g/dL (31.6-35.5); Mean Corpuscular Hemoglobin 26.4 pg (28.0-33.3); Mean Corpuscular Volume 83.6 fL (83.0-100.0); Mean Platelet Volume 8.6 fL (9.4-12.4); Monocytes # 1.3 K/mcL (0.0-1.3); Monocytes % 10.3 %; Neutrophils # 8.7 K/mcL (1.6-8.9); Platelet Count 383 K/mcL (140-400); Red Blood Count 4.44 M/mcL (4.19-5.50); Red Cell Distribution Width 16.1 % (11.5-14.5); Segmented Neutrophils % 67.1 %
[2016-11-20] MEDS ORDERED: Albuterol 2.5 MG/3 ML NEBULIZER IH ONE (05:30)
[2016-11-20 05:44] LABS: BUN/Creatinine Ratio 23 (6-26); Blood Urea Nitrogen 23 mg/dL (8-26); Calcium 9.6 mg/dL (8.6-10.8); Carbon Dioxide 22 mEq/L (19-29); Chloride 106 mEq/L (98-109); Glucose 119 mg/dL (70-99); Osmolality,Calculated 295 (280-300); Potassium 3.6 mEq/L (3.5-4.5); Sodium 140 mEq/L (136-145); eGFR For African Americans > 60 (> 60); eGFR For Non-African Americans > 60 (> 60)
--- NOTE | 2016-11-20 07:03 | Emergency Department Note ---
Disposition Clinical Impression: Acute exacerbation of chronic obstructive airways disease, Shortness of breath , Hypoxia, Wheezing on expiration, COPD exacerbation Disposition: Admitted As Inpatient Condition: Fair Referrals: Bryce Jones, [Primary Care Provider] - Forms: ED Satisfaction Letter Time of Disposition: 08:05 (Dr. Casas accepts) SOB HPI - General Chief Complaint: ED Chest Pain Stated Complaint: CP/SHUBHAM Time Seen by Provider: 11/20/16 04:57 Source: patient, EMS Mode of arrival: EMS Limitations: no limitations Nursing Notes Reviewed: Yes Vital Signs Reviewed: Yes - History of Present Illness Patient was a sign out from the night team, Dr. Bernabe and Dr. Vasquez, please see their notes for further detail. Patient is a 61 year old male with PMHx of HTN , DM, high cholesterol, COPD. He has had URI symptoms and shortness of breath for 1 week for one week. He was seen in the ED and given antibiotics and prednisone. Patient cannot remember if he took antibiotics or not. He has been taking prednisone 10mg daily with no improvement in symptoms. He was seen by his inside sales coordinator as well during an outpatient visit and was given a shot of steroids. Still no improvement in symptoms. He also had one episode of hemoptysis this morning. He was tachycardic and tachypneic on presentation. Patient states that he normally wears 3 L of oxygen at home and has been having increased this. Denies any chest pain,, vomiting, fevers, abdominal pain, change in bowel or bladder habit. - Related Data Home Medications Medication Instructions Recorded Confirmed Albuterol Sulfate [Albuterol 2 puff IH Q4HR PRN 03/16/16 11/03/16 Inhaler] Amlodipine Besylate 10 mg PO DAILY 03/16/16 11/03/16 Azelastine 0.1% Nasal [place] 1 spray NS BID 03/16/16 11/03/16 [Astelin] Budesonide/Formoterol 160/4.5 2 puff IH BIDR 03/16/16 11/03/16 [Symbicort 160/4.5] Cetirizine HCl [Zyrtec] 10 mg PO DAILY 03/16/16 11/03/16 ClonazePAM [Klonopin] 1 mg PO BID PRN 03/16/16 11/03/16 Docusate [Colace] 100 mg PO BID PRN 03/16/16 11/03/16 Ergocalciferol (VITAMIN D2) 400 unit PO DAILY 03/16/16 11/03/16 [Vitamin D] Esomeprazole Magnesium [Nexium] 40 mg PO BID 03/16/16 11/03/16 Fluticasone Propionate Nasal 100 mcg NS DAILY 03/16/16 11/03/16 [Flonase] Ketoconazole Shampoo [Nizoral 1 appl TP 3XW 03/16/16 11/03/16 Shampoo] Polyethylene Glycol 3350 [MiraLAX] 17 gm PO DAILY 03/16/16 11/03/16 Psyllium Seed (with Sugar) 1 each PO DAILY 03/16/16 11/03/16 [Metamucil Powder] Roflumilast [Daliresp] 500 mcg PO DAILY 03/16/16 11/03/16 Sodium Chloride [[place] Saline] 1 spray NS BID PRN 03/16/16 11/03/16 Albuterol Neb [Proventil Neb] 2.5 mg IH Q2-4H PRN 09/21/16 11/03/16 L. Acidophilus/Pectin, [place] 1 each PO DAILY 11/03/16 11/03/16 [Acidophilus Probiotic Capsule] Metoclopramide [Reglan] 10 mg PO ACHS 11/03/16 11/03/16 Umeclidinium [place] [Incruse 62.5 mcg IH DAILY 11/03/16 11/03/16 Ellipta] Previous Rx's Medication Instructions Recorded GuaiFENesin ER [Mucinex] 1,200 mg PO BID PRN #40 tbbp.12hr 09/30/16 Metoprolol [Lopressor] 12.5 mg PO BID #30 tablet 09/30/16 Montelukast [Singulair] 10 mg PO HS #30 tablet 09/30/16 Aspirin [Lo-Dose Aspirin EC] 81 mg PO DAILY #30 tablet. 11/05/16 Azithromycin [Azithromycin 6-Tab 250 mg PO PER PKG DI #6 tab 11/17/16 Pack] PredniSONE 40 mg PO DAILY #10 tablet 11/17/16 Allergies Allergy/AdvReac Type Severity Reaction Status Date / Time morphine Allergy Difficulty Verified 09/17/16 08:27 Breathing sulfamethoxazole Allergy Rash Verified 10/12/16 20:21 [From Bactrim] trimethoprim [From Bactrim] Allergy Rash Verified 10/12/16 20:21 codeine AdvReac Nausea Verified 03/16/16 17:11 Constitutional: Denies: fever Cardiovascular: Reports: dyspnea on exertion, orthopnea. Denies: chest pain, palpitations Respiratory: Denies: dyspnea, wheezes Gastrointestinal: Denies: nausea, vomiting Genitourinary: Denies: dysuria, frequency Past Medical History - Past Medical History Attestation: Yes The following information was validated with the patient. Source: patient Medical history: Reports: COPD, diabetes, GERD, hypertension Surgical history: Reports: herniorrhaphy, other Psychiatric history: Reports: anxiety, depression - Social History Smoking Status: Former smoker Smokeless Tobacco Status: No Alcohol use: Reports: rarely Drug use: Reports: none Physical Exam - General Limitations: no limitations General appearance: alert, in no apparent distress, in distress - Head Head exam: atraumatic, normocephalic, normal inspection - Eye Eye exam: Present: normal appearance, PERRL, EOMI - ENT ENT exam: normal exam, normal oropharynx, mucous membranes moist - Neck Neck exam: Present: normal inspection, full ROM, trachea midline - Chest Chest inspection: Present: normal inspection, symmetric chest wall rise - Respiratory Respiratory exam: Present: wheezes (significant wheezes in all lung banks), accessory muscle use (Mild), other (Currently on BIPAP, tolerating well) - Cardiovascular Cardiovascular exam: Present: regular rate, normal rhythm, normal heart sounds - Abdominal Exam Abdominal exam: Present: soft, Non-Tender. Absent: tenderness, distention, guarding, rebound, rigidity - Extremities Exam Extremities exam: Present: normal inspection, full ROM. Absent: tenderness, pedal edema - Back Exam Back exam: Present: normal inspection, full ROM. Absent: tenderness - Neurological Exam Neurological exam: Present: alert, oriented X3 - Psychiatric Psychiatric exam: Present: normal affect, normal mood - Skin Skin exam: Present: warm, dry, intact, normal color Course Course Narrative: Currently, vitals are stable. Patient is on BIPAP and tolerating well. At this point, he has already received solumedrol, duonebs, and Levaquin dose. He still has significant wheezing in all lung banks and subjective shortness of breath. CXR negative. Mildly elevated WBC 13. BNP WNL, Trop negative. CTA was performed due to hemoptysis and shortness of breath. CTA negative. Hadley barreto hospitalist for admission for COPD exacerbation with failed outpatient tx. Vital Signs Temperature 97.6 F 11/20/16 05:01 Pulse Rate 101 11/20/16 05:01 Respiratory Rate 22 11/20/16 05:01 Blood Pressure 120/69 11/20/16 05:01 O2 Sat by Pulse Oximetry 96 11/20/16 05:01 Temperature 97.6 F 11/20/16 05:01 Pulse Rate 88 11/20/16 07:56 Respiratory Rate 18 11/20/16 07:56 Blood Pressure 124/74 11/20/16 07:56 O2 Sat by Pulse Oximetry 97 11/20/16 07:56 Oxygen Delivery Oxygen Delivery Bipap Shortness of Breath/Dyspnea - MDM Narrative Medical decision making narrative: Currently, vitals are stable. Patient is on BIPAP and tolerating well. At this point, he has already received solumedrol, duonebs, and Levaquin dose. He still has significant wheezing in all lung banks and subjective shortness of breath. EKG NSR with no acute ST changes. CXR negative. Mildly elevated WBC 13. BNP WNL, Trop negative. CTA was performed due to hemoptysis and shortness of breath. CTA negative. Hadley barreto hospitalist for admission for COPD exacerbation with failed outpatient tx. I examined this patient and my medical decision-making was reviewed with the HIGH SCHOOL ADMISSIONS REPRESENTATIVE/PA/Advanced Practice Nurse/Resident Physician. I agree with the documented findings, disposition and treatment plan as described except to the extent set forth below. Evaluated this patient with Dr. Canas, agree with his evaluation management plan suprascapular the patient throughout his stay. This patient was signed out to this at 7:00 this morning from the system safety engineer patient had COPD was on BiPAP and got a CTA to rule out PE. Patient feeling better is still on BiPAP at this time. His CTA was negative for waiting on admission from hospitalist for the patient. Patient's agreement with this plan. Chest X-Ray 11/20/16 04:57 IMPRESSION: No evidence of acute disease. D/ / Francisco Chino MD / Francisco Chino MD Interpreting Provider: Francisco Chino MD Chest CTA 11/20/16 06:00 IMPRESSION: No evidence of pulmonary embolism or acute pulmonary abnormality. D/ / Francisco Walker MD / Francisco Walker MD Interpreting Provider: Francisco Walker MD - Medical Records Medical records reviewed: Yes I reviewed the patient's medical records. - Lab Data Lab results reviewed: Yes I reviewed the patient's lab results. Result diagrams: 11/20/16 05:25 11/20/16 05:25 Lab Results 11/20/16 11/20/16 11/20/16 Range/Units 05:25 05:25 05:25 WBC 13.0 H (4.3-11.1) K/mcL RBC 4.44 (4.19-5.50) M/mcL Hgb 11.7 L (12.9-16.9) g/dL Hct 37.1 L (37.5-50.1) % MCV 83.6 (83.0-100.0) fL MCH 26.4 L (28.0-33.3) pg MCHC 31.5 L (31.6-35.5) g/dL RDW 16.1 H (11.5-14.5) % Plt Count 383 (140-400) K/mcL MPV 8.6 L (9.4-12.4) fL Immature Gran % 0.8 (0-4) % Seg Neutrophils % 67.1 % Lymphocytes % 21.2 % Monocytes % 10.3 % Eosinophils % 0.2 % Basophils % 0.4 % Neutrophils # 8.7 (1.6-8.9) K/mcL Lymphocytes # 2.8 (0.6-4.6) K/mcL Monocytes # 1.3 (0.0-1.3) K/mcL Eosinophils # 0.0 (0.0-0.6) K/mcL Basophils # 0.1 (0.0-0.2) K/mcL Sodium 140 (136-145) mEq/L Potassium 3.6 (3.5-4.5) mEq/L Chloride 106 (98-109) mEq/L Carbon Dioxide 22 (19-29) mEq/L BUN 23 (8-26) mg/dL Creatinine 1.00 (0.72-1.25) mg/dL Est GFR ( Amer) > 60 (> 60) Est GFR (Non-Af Amer) > 60 (> 60) BUN/Creatinine Ratio 23 (6-26) Glucose 119 H (70-99) mg/dL Calculated Osmolality 295 (280-300) Calcium 9.6 (8.6-10.8) mg/dL Troponin I 0.00 (0-0.03) ng/mL B-Natriuretic Peptide (0-100) pg/mL 11/20/16 Range/Units 05:25 WBC (4.3-11.1) K/mcL RBC (4.19-5.50) M/mcL Hgb (12.9-16.9) g/dL Hct (37.5-50.1) % MCV (83.0-100.0) fL MCH (28.0-33.3) pg MCHC (31.6-35.5) g/dL RDW (11.5-14.5) % Plt Count (140-400) K/mcL MPV (9.4-12.4) fL Immature Gran % (0-4) % Seg Neutrophils % % Lymphocytes % % Monocytes % % Eosinophils % % Basophils % % Neutrophils # (1.6-8.9) K/mcL Lymphocytes # (0.6-4.6) K/mcL Monocytes # (0.0-1.3) K/mcL Eosinophils # (0.0-0.6) K/mcL Basophils # (0.0-0.2) K/mcL Sodium (136-145) mEq/L Potassium (3.5-4.5) mEq/L Chloride (98-109) mEq/L Carbon Dioxide (19-29) mEq/L BUN (8-26) mg/dL Creatinine (0.72-1.25) mg/dL Est GFR ( Amer) (> 60) Est GFR (Non-Af Amer) (> 60) BUN/Creatinine Ratio (6-26) Glucose (70-99) mg/dL Calculated Osmolality (280-300) Calcium (8.6-10.8) mg/dL Troponin I (0-0.03) ng/mL B-Natriuretic Peptide < 10 (0-100) pg/mL - Radiology Data Radiology results reviewed: Yes I reviewed the patient's radiology results. Chest X-Ray 11/20/16 04:57 IMPRESSION: No evidence of acute disease. D/ / Francisco Chino MD / Francisco Chino MD Interpreting Provider: Francisco Chino MD Chest CTA 11/20/16 06:00 IMPRESSION: No evidence of pulmonary embolism or acute pulmonary abnormality. D/ / Francisco Walker MD / Francisco Walker MD Interpreting Provider: Francisco Walker MD - EKG Data EKG attestation: Yes I reviewed and interpreted this EKG. EKG results narrative: 11/20/16 at 05:02. sinus tachycardia, rate 101. QTC 395. QRS 86. Normal axs. no acute ST elevation or depression. S.B.A.R. - S.B.A.R. Situation: Demographics, MOA Background: Presenting Complaint, Relevant PMH, Meds, & Allergies Assessment: Vital Signs, Course and respsone to treatment, Exam Concerns, Patient/Family Expectation, Pertinant Lab Results, Outstanding Labs Recommendation: Barrier(s) to disposition, Recommendation based on pending studies, treatments, or consults S.B.A.RSumeet Report Given to: Dr. Augusto FranceARosalio Repor Time: 08:04
[2016-11-20] MEDS ORDERED: Ketorolac 30 MG/ML VIAL IVP ONE (07:22)
[2016-11-20] MEDS: Levofloxacin 750 MG/150 ML 750 MG/150 ML BAG IVPB SCH (07:52)
--- NOTE | 2016-11-20 08:42 | Internal Med History&Physical ---
Date of Encounter: 11/20/16 Time of Encounter: 08:38 Assessment and Plan (1) Essential hypertension Current visit: Yes Status: Acute We will continue with amlodipine and metoprolol. Monitor blood pressure. He is hemodynamically stable and there is no evidence of septic shock at this time. (2) Acute bacterial bronchitis Current visit: Yes Status: Acute Evidenced by copious yellow and green sputum production. We will initiate Levaquin empirically. (3) Acute exacerbation of chronic obstructive airways disease Current visit: Yes Status: Acute We will treat patient with Levaquin, IV Solu-Medrol, inhaled albuterol and Atrovent. Supplemental oxygen delivered by BiPAP at this time, will attempt weaning him down to high flow nasal cannula by respiratory therapy. (4) Hypoxia Current visit: Yes Status: Acute Supplemental oxygen to maintain oxygen saturation above 92%. Continuous pulse oximetry. (5) Acute and chronic respiratory failure with hypoxia Current visit: No Status: Acute Supplemental oxygen to maintain oxygen saturation above 92%. Continuous pulse oximetry (6) Chest pain Current visit: No Status: Acute Likely secondary to bronchitis however he has multiple risk factors for CAD. We will place the patient on telemetry and trend troponins to rule out ACS. Qualifiers: Chest pain type: precordial pain Qualified Code(s): R07.2 - Precordial pain (7) DVT prophylaxis Current visit: No Status: Acute We will use SCDs only. I will avoid anticoagulation due to history of recent hemoptysis and high risk for recurrent hemoptysis which could cause respiratory decompensation and need for endotracheal intubation and mechanical ventilation. (8) GERD (gastroesophageal reflux disease) Current visit: No Status: Chronic Qualifiers: Esophagitis presence: esophagitis presence not specified Qualified Code(s) : K21.9 - Gastro-esophageal reflux disease without esophagitis (9) Morbid obesity with BMI of 40.0-44.9, adult Current visit: No Status: Chronic Weight loss regimen, follow-up outpatient with PCP. (10) Obstructive sleep apnea Current visit: No Status: Chronic (11) Severe sepsis Current visit: Yes Status: Acute As evidenced by tachycardia, tachypnea and elevated white blood cell count in the presence of suspected infection in the form of acute bacterial bronchitis and elevated lactic acid level. We will obtain blood cultures, start broad-spectrum IV antibiotic coverage with Zosyn and Levaquin. Obtain sputum culture. Start bolus IV fluids at 30 mL per kilogram for a total of 4.2 L. Repeat lactic acid level at 3 hours. Internal Medicine - H&P: HPI Chief complaint: Shortnes of breath Admitted From: Emergency Dept Plans for Post Hospital Care: Home History of present illness: Mr. Herring is a 61 year old male with past medical history significant for COPD , chronic hypoxic respiratory failure on home oxygen, VANI, hypertension who presented to the hospital for evaluation of shortness of breath and chest pain. He says that he has had an upper respiratory tract infection a week ago and had been prescribed antibiotics and steroids. He has been taking his medication follow-up for his symptoms suddenly started getting worse around 3 AM this morning when he had severe shortness of breath associated with midsternal pressure-like chest pain worsened with cough, and cough productive of thick yellow and green sputum. He also reports 1 episode of coughing up blood, and small amount. In the emergency department he was found to be hypoxic, he was placed on BiPAP and was treated with Levaquin and IV steroids. A 10 point review of systems was negative except as described above. Family history is positive for history of [place] and lung cancer in the patient's mother, patient's father suffered with pancreatic cancer. Social history: Patient lives by himself independently, has a remote history of smoking 3 packs a day, quit 9 years ago. Uses alcohol occasionally. Denies recreational drug use. Past Med Surg Social Fam HX - Past Medical History Medical history: COPD, diabetes, GERD, hypertension Psychiatric history: anxiety, depression - Past Surgical History Surgical History: herniorrhaphy, other - Social History Smoking Status: Former smoker Smokeless Tobacco Status: No Alcohol use: rarely Drug use: none - Family History Father Family Member Ethnicity: Non- Living Status: Hx Family Cancer: Yes Mother Adopted: No Family Member Ethnicity: Non- Living Status: Hx Family Cardiac Disorders: Yes ([place]) Hx Family Respiratory Disorders: No Hx Family Cancer: Yes (lung Cancer) Hx Family GI Disorders: No Sister Living Status: Hx Family Cardiac Disorders: Yes (chf) Internal Medicine - H&P: Meds Albuterol Sulfate [Albuterol Inhaler] 2 puff IH Q4HR PRN 03/16/16 [History] Amlodipine Besylate 10 mg PO DAILY 03/16/16 [History] Azelastine 0.1% Nasal [place] [Astelin] 1 spray NS BID 03/16/16 [History] Budesonide/Formoterol 160/4.5 [Symbicort 160/4.5] 2 puff IH BIDR 03/16/16 [ History] Cetirizine HCl [Zyrtec] 10 mg PO DAILY 03/16/16 [History] ClonazePAM [Klonopin] 1 mg PO BID PRN 03/16/16 [History] Docusate [Colace] 100 mg PO BID PRN 03/16/16 [History] Ergocalciferol (VITAMIN D2) [Vitamin D] 400 unit PO DAILY 03/16/16 [History] Esomeprazole Magnesium [Nexium] 40 mg PO BID 03/16/16 [History] Fluticasone Propionate Nasal [Flonase] 100 mcg NS DAILY 03/16/16 [History] Ketoconazole Shampoo [Nizoral Shampoo] 1 appl TP 3XW 03/16/16 [History] Polyethylene Glycol 3350 [MiraLAX] 17 gm PO DAILY 03/16/16 [History] Psyllium Seed (with Sugar) [Metamucil Powder] 1 each PO DAILY 03/16/16 [History] Roflumilast [Daliresp] 500 mcg PO DAILY 03/16/16 [History] Sodium Chloride [[place] Saline] 1 spray NS BID PRN 03/16/16 [History] Albuterol Neb [Proventil Neb] 2.5 mg IH Q2-4H PRN 09/21/16 [History] GuaiFENesin ER [Mucinex] 1,200 mg PO BID PRN #40 tbbp.12hr 09/30/16 [Rx] Metoprolol [Lopressor] 12.5 mg PO BID #30 tablet 09/30/16 [Rx] Montelukast [Singulair] 10 mg PO HS #30 tablet 09/30/16 [Rx] L. Acidophilus/Pectin, [place] [Acidophilus Probiotic Capsule] 1 each PO DAILY [History] Metoclopramide [Reglan] 10 mg PO ACHS 11/03/16 [History] Umeclidinium [place] [Incruse Ellipta] 62.5 mcg IH DAILY 11/03/16 [History] Aspirin [Lo-Dose Aspirin EC] 81 mg PO DAILY #30 tablet. 11/05/16 [Rx] Azithromycin [Azithromycin 6-Tab Pack] 250 mg PO PER PKG DI #6 tab 11/17/16 [Rx] PredniSONE 40 mg PO DAILY #10 tablet 11/17/16 [Rx] Allergies morphine Allergy (Verified 09/17/16 08:27) Difficulty Breathing sulfamethoxazole [From Bactrim] Allergy (Verified 10/12/16 20:21) Rash trimethoprim [From Bactrim] Allergy (Verified 10/12/16 20:21) Rash codeine Adverse Reaction (Verified 03/16/16 17:11) Nausea All Systems PM: A 10-system review of systems was performed and is negative for pertinent findings except as documented above in the HPI. - Constitutional Vitals: Temp Pulse Resp BP Pulse Ox 97.6 F 88 18 124/74 97 11/20/16 05:01 11/20/16 07:56 11/20/16 07:56 11/20/16 07:56 11/20/16 07:56 - Eye Eye exam: Present: PERRL, conjuntiva pink, sclera anicteric Pupils: Present: PERRL - Neck Neck exam general surgery: Present: supple, trachea midline. Absent: lymphadenopathy - Respiratory Respiratory exam: Present: prolonged expiratory phase, wheezes. Absent: accessory muscle use, rales, rhonchi - Cardiovascular Cardiovascular exam: Present: +S1, +S2, tachycardia. Absent: diastolic murmur, gallop, rubs, systolic murmur - GI/Abdominal GI/Abdominal exam: Present: normal bowel sounds, soft, no peritoneal signs. Absent: distended, tenderness - Extremities Exam Extremities exam: Present: pedal edema, warm, radial pulses palpable and symetrical. Absent: calf tenderness, cyanotic - Neurological Exam Neurological exam: Present: CN II-XII intact, oriented X3, no focal deficits. Absent: pronater drift, facial droop, speech deficit - Skin Skin exam: Present: dry, intact Internal Med - H&P Results - Labs CBC & Chem 7: 11/20/16 05:25 11/20/16 05:25 - EKG Data EKG comments: 11/20/16 08:43 Sinus tachycardia with atrial premature contractions, ventricular rate 10 1 bpm. Normal axis and intervals, no acute ST or T-wave changes.
[2016-11-20] MEDS ORDERED: Ondansetron 4 MG/2 ML VIAL IVP PRN (09:03)
[2016-11-20 09:43] LABS: Bilirubin,Urine Negative (Negative); Blood,Urine Negative (Negative); Clarity,Urine Clear (Clear); Color,Urine Yellow (Yellow); Glucose,Urine (UA) Normal (Normal); Ketones,Urine Negative (Negative); Leukocyte Esterase,Urine Negative (Negative); Nitrite,Urine Negative (Negative); PH,Urine 5.5 pH Units (5.0-8.0); Protein,Urine Negative (Neg-Trace); Specific Gravity,Urine > 1.030 (1.010-1.025); Urobilinogen,Urine Normal (Normal)
[2016-11-20 09:56] LABS: Basophils # 0.1 K/mcL (0.0-0.2); Basophils % 0.3 %; Eosinophils % 0.1 %; Hematocrit 37.7 % (37.5-50.1); Immature Granulocytes % 1.1 % (0-4); Lymphocytes # 0.7 K/mcL (0.6-4.6); Lymphocytes % 4.6 %; Mean Corpuscular HGB Conc 31.8 g/dL (31.6-35.5); Mean Corpuscular Hemoglobin 26.7 pg (28.0-33.3); Mean Platelet Volume 8.7 fL (9.4-12.4); Monocytes # 0.5 K/mcL (0.0-1.3); Monocytes % 3.1 %; Neutrophils # 13.7 K/mcL (1.6-8.9); Platelet Count 363 K/mcL (140-400); Red Blood Count 4.49 M/mcL (4.19-5.50); Red Cell Distribution Width 16.3 % (11.5-14.5); Segmented Neutrophils % 90.8 %
[2016-11-20] MEDS: 0.9 % Sodium Chloride 1,000 ML IVC SCH ×4 (09:58→19:23)
[2016-11-20] MEDS: Pantoprazole 40 MG VIAL IVP SCH (09:58)
[2016-11-20 10:01] LABS: Prothrombin Time 11.3 Seconds (9.4-12.1)
[2016-11-20 10:03] LABS: Activated Partial Thrombo Time 38.1 Seconds (26.0-36.0)
[2016-11-20 10:09] LABS: Alanine Aminotransferase 15 Units/L (0-55); Albumin 3.4 g/dL (3.5-5.0); Albumin/Globulin Ratio 0.9 (1.1-2.2); Alkaline Phosphatase 85 Units/L (38-126); Aspartate Amino Transferase 21 Units/L (5-34); BUN/Creatinine Ratio 23 (6-26); Bilirubin,Direct 0.1 mg/dL (0.0-0.5); Bilirubin,Indirect 0.1 mg/dL (0.0-1.2); Bilirubin,Total 0.2 mg/dL (0.2-1.2); Blood Urea Nitrogen 24 mg/dL (8-26); Calcium 9.7 mg/dL (8.6-10.8); Carbon Dioxide 20 mEq/L (19-29); Chloride 105 mEq/L (98-109); Globulin 3.8 g/dL (2.4-3.5); Glucose 155 mg/dL (70-99); Osmolality,Calculated 297 (280-300); Potassium 3.9 mEq/L (3.5-4.5); Sodium 140 mEq/L (136-145); Total Protein 7.2 g/dL (6.0-8.3); eGFR For African Americans > 60 (> 60); eGFR For Non-African Americans > 60 (> 60)
[2016-11-20] MEDS ORDERED: Saline Nasal Spray 44 ML BOTTLE NS PRN (10:14)
[2016-11-20] MEDS ORDERED: Roflumilast [Daliresp] 500 MCG PO SCH (10:15)
[2016-11-20] MEDS: Piperacillin/Tazobactam 3.375 GM in D5% in Water (Mini-Bag+) 100 ML IVPB SCH ×3 (11:20→23:03)
[2016-11-20] MEDS: Aspirin Enteric Coated 81 MG Tablet PO SCH (11:28)
[2016-11-20] MEDS: amLODIPine 5 MG TABLET PO SCH (11:28)
[2016-11-20] MEDS: clonazePAM 0.5 MG TABLET PO PRN ×2 (11:29→21:29)
[2016-11-20] MEDS: Loratadine 10 MG TABLET PO SCH (11:30)
[2016-11-20] MEDS: Ipratropium/Albuterol Neb 3 ML IH SCH ×4 (13:37→23:46)
[2016-11-20] MEDS: methylPREDNISolone 125 MG/2 ML VIAL IVP SCH ×2 (16:17→23:04)
[2016-11-20] MEDS: Budesonide/Formoterol 160/4.5 MDI IH SCH (19:49)
[2016-11-20] MEDS: Azelastine 0.1% Nasal Spray 30 ML BOTTLE NS SCH (20:22)
[2016-11-21] MEDS: 0.9 % Sodium Chloride 1,000 ML IVC SCH ×4 (00:54→00:56)
[2016-11-21] MEDS: Ipratropium/Albuterol Neb 3 ML IH SCH ×6 (03:30→23:23)
[2016-11-21 07:36] LABS: Basophils % 0.3 %; Hematocrit 34.7 % (37.5-50.1); Hemoglobin 10.9 g/dL (12.9-16.9); Immature Granulocytes % 1.6 % (0-4); Lymphocytes # 1.5 K/mcL (0.6-4.6); Lymphocytes % 11.7 %; Mean Corpuscular HGB Conc 31.4 g/dL (31.6-35.5); Mean Corpuscular Hemoglobin 26.3 pg (28.0-33.3); Mean Corpuscular Volume 83.8 fL (83.0-100.0); Mean Platelet Volume 8.8 fL (9.4-12.4); Monocytes # 0.6 K/mcL (0.0-1.3); Monocytes % 4.4 %; Neutrophils # 10.4 K/mcL (1.6-8.9); Platelet Count 315 K/mcL (140-400); Red Blood Count 4.14 M/mcL (4.19-5.50); Red Cell Distribution Width 15.9 % (11.5-14.5)
[2016-11-21 07:45] LABS: BUN/Creatinine Ratio 18 (6-26); Blood Urea Nitrogen 15 mg/dL (8-26); Calcium 9.5 mg/dL (8.6-10.8); Carbon Dioxide 25 mEq/L (19-29); Chloride 107 mEq/L (98-109); Glucose 152 mg/dL (70-99); Osmolality,Calculated 294 (280-300); Potassium 4.7 mEq/L (3.5-4.5); Sodium 140 mEq/L (136-145); eGFR For African Americans > 60 (> 60); eGFR For Non-African Americans > 60 (> 60)
[2016-11-21 08:16] LABS: Platelet Estimate Normal (Normal); Reactive Lymphocytes Present (Not Present)
[2016-11-21] MEDS ORDERED: Levofloxacin 750 MG/150 ML 750 MG/150 ML BAG IVPB SCH (09:00)
[2016-11-21] MEDS: Budesonide/Formoterol 160/4.5 MDI IH SCH ×2 (09:14→19:53)
[2016-11-21] MEDS: Pantoprazole 40 MG VIAL IVP SCH (09:53)
[2016-11-21] MEDS: Azithromycin 250 MG TABLET PO SCH (09:53)
[2016-11-21] MEDS: Aspirin Enteric Coated 81 MG Tablet PO SCH (09:53)
[2016-11-21] MEDS: amLODIPine 5 MG TABLET PO SCH (09:54)
[2016-11-21] MEDS: methylPREDNISolone 125 MG/2 ML VIAL IVP SCH ×2 (09:54→16:48)
[2016-11-21] MEDS: Loratadine 10 MG TABLET PO SCH (09:54)
[2016-11-21] MEDS: (Umeclidinium Bromide [Incruse Ellipta] 62.5 MCG) IH SCH (09:55)
[2016-11-21] MEDS: Roflumilast [Daliresp] 500 MCG PO SCH (09:55)
[2016-11-21] MEDS: Azelastine 0.1% Nasal Spray 30 ML BOTTLE NS SCH ×2 (10:13→21:31)
[2016-11-21] MEDS: clonazePAM 0.5 MG TABLET PO PRN (10:27)
[2016-11-21] MEDS ORDERED: 0.9 % Sodium Chloride 1,000 ML IVC ONE (12:42)
[2016-11-21] MEDS ORDERED: Dextrose Gel 15 GM PO PRN ×2 (12:43)
[2016-11-21] MEDS ORDERED: D5% in Water 1,000 ML IV PRN (12:43)
[2016-11-21] MEDS ORDERED: *HR* Dextrose 50 % in Water (Syg) 50 ML SYRINGE IVP PRN (12:43)
--- NOTE | 2016-11-21 12:48 | Internal Med Progress Note ---
Date of Encounter: 11/21/16 Time of Encounter: 12:30 - Assessment and plan (1) Acute and chronic respiratory failure with hypoxia Current Visit: Yes Status: Acute Assessment and plan: Responding to O2 by NC continue same (2) Pneumonia Current Visit: Yes Status: Acute Assessment and plan: Suspected, management as in sepsis Qualifiers: Pneumonia type: due to unspecified organism Laterality: unspecified laterality Lung location: unspecified part of lung Qualified Code(s): J18.9 - Pneumonia, unspecified organism (3) Acute exacerbation of chronic obstructive airways disease Current Visit: Yes Status: Acute Assessment and plan: Continue current management Taper steroids from tomorrow Add expectorant (4) Severe sepsis Current Visit: Yes Status: Acute Assessment and plan: Patient with respiratory symptoms, tachycardia, tachypnea, hypoxia, leukocytosis , and lactic acidosis Lactate slightly improved from 4 to 3 Will give IVF bolus Continue ceftriaxone and azithromcyin Follow cultures (5) Lactic acidosis Current Visit: Yes Status: Acute Assessment and plan: As above (6) Essential hypertension Current Visit: Yes Status: Chronic Assessment and plan: Controlled, continue home meds (7) Fatty liver Current Visit: Yes Status: Chronic (8) Borderline diabetes Current Visit: Yes Status: Chronic Assessment and plan: Check A1C am (9) GERD (gastroesophageal reflux disease) Current Visit: Yes Status: Chronic Assessment and plan: Resume home meds Qualifiers: Esophagitis presence: esophagitis presence not specified Qualified Code(s) : K21.9 - Gastro-esophageal reflux disease without esophagitis (10) HTN (hypertension) Current Visit: Yes Status: Chronic Assessment and plan: Resume home meds Qualifiers: Hypertension type: essential hypertension Qualified Code(s): I10 - Essential (primary) hypertension (11) Morbid obesity with BMI of 40.0-44.9, adult Current Visit: Yes Status: Chronic (12) Obstructive sleep apnea Current Visit: Yes Status: Chronic Assessment and plan: BiPAP at night - Subjective Interval history: 61 Y/O M being managed for severe sepsis from a probable pneumonia, COPD exacerbation and acute on chronic hypoxic respiratory failure He is seen at bedside Complains of a headache and wants something for pain He has a PMH of HTN, HLD, Pre-DM, Morbid Obesity, VANI on CPAP, COPD on home O2, - Constitutional Vitals: Temp Pulse Resp BP Pulse Ox 97.4 F L 80 16 145/79 93 L 11/21/16 10:55 11/21/16 10:55 11/21/16 10:55 11/21/16 10:55 11/21/16 10:55 General appearance: Present: A&O X 3, morbidly obese, pleasant, no acute distress - Head Head exam: Present: atraumatic, normocephalic - Eye Eye exam: Present: PERRL, conjuntiva pink, sclera anicteric Pupils: Present: PERRL - Neck Neck exam general surgery: Present: supple, trachea midline. Absent: lymphadenopathy - Respiratory Respiratory exam: Present: rhonchi, wheezes - Cardiovascular Cardiovascular exam: Present: RRR, +S1, +S2. Absent: diastolic murmur, gallop, rubs, systolic murmur - GI/Abdominal GI/Abdominal exam: Present: normal bowel sounds, soft, no peritoneal signs. Absent: distended, tenderness - Extremities Exam Extremities exam: Present: warm, radial pulses palpable and symetrical. Absent : calf tenderness, cyanotic, pedal edema - Neurological Exam Neurological exam: Present: CN II-XII intact, oriented X3, no focal deficits. Absent: pronater drift, facial droop, speech deficit - Skin Skin exam: Present: dry, intact Internal Medicine: Result - Labs CBC & Chem 7: 11/21/16 07:15 11/21/16 07:15 Labs: Short CBC 11/21/16 Range/Units 07:15 WBC 12.7 H (4.3-11.1) K/mcL Hgb 10.9 L (12.9-16.9) g/dL Hct 34.7 L (37.5-50.1) % Plt Count 315 (140-400) K/mcL Neutrophils # 10.4 H (1.6-8.9) K/mcL BMP 11/21/16 07:15 Sodium 140 Potassium 4.7 H Chloride 107 Carbon Dioxide 25 BUN 15 Creatinine 0.82 Glucose 152 H Calcium 9.5 Cardiac Enzymes 11/20/16 Range/Units 14:47 Troponin I 0.00 (0-0.03) ng/mL - ABG Interpretation ABG results: PT/INR, D-dimer PT 11.3 Seconds (9.4-12.1) 11/20/16 09:36 Consult Discharge Plan - Plan Referrals: Bryce Jones, [Primary Care Provider] -
[2016-11-21] MEDS: Acetaminophen 325 MG TABLET PO PRN (16:48)
[2016-11-21] MEDS: Insulin LISPRO 300 UNITS/3 ML VIAL SQ SCH ×2 (16:48→21:36)
[2016-11-21] MEDS: Piperacillin/Tazobactam 3.375 GM in D5% in Water (Mini-Bag+) 100 ML IVPB SCH (19:57)
[2016-11-21] MEDS: Levofloxacin 750 MG/150 ML 750 MG/150 ML BAG IVPB SCH (19:57)
[2016-11-21] MEDS: clonazePAM 1 MG TABLET PO PRN (21:29)
[2016-11-22] MEDS: methylPREDNISolone 125 MG/2 ML VIAL IVP SCH ×2 (00:39→09:42)
[2016-11-22] MEDS: Ipratropium/Albuterol Neb 3 ML IH SCH ×6 (03:35→23:18)
[2016-11-22 05:10] LABS: Basophils % 0.2 %; Hematocrit 35.6 % (37.5-50.1); Hemoglobin 11.1 g/dL (12.9-16.9); Immature Granulocytes % 2.1 % (0-4); Lymphocytes # 1.2 K/mcL (0.6-4.6); Lymphocytes % 9.6 %; Mean Corpuscular HGB Conc 31.2 g/dL (31.6-35.5); Mean Corpuscular Hemoglobin 26.2 pg (28.0-33.3); Mean Platelet Volume 9.7 fL (9.4-12.4); Monocytes # 0.5 K/mcL (0.0-1.3); Monocytes % 3.8 %; Neutrophils # 10.6 K/mcL (1.6-8.9); Platelet Count 304 K/mcL (140-400); Red Blood Count 4.24 M/mcL (4.19-5.50); Segmented Neutrophils % 84.3 %
[2016-11-22 05:27] LABS: BUN/Creatinine Ratio 23 (6-26); Blood Urea Nitrogen 21 mg/dL (8-26); Calcium 9.4 mg/dL (8.6-10.8); Carbon Dioxide 26 mEq/L (19-29); Chloride 106 mEq/L (98-109); Glucose 180 mg/dL (70-99); Osmolality,Calculated 298 (280-300); Potassium 4.4 mEq/L (3.5-4.5); Sodium 140 mEq/L (136-145); eGFR For African Americans > 60 (> 60); eGFR For Non-African Americans > 60 (> 60)
[2016-11-22 05:39] LABS: Platelet Estimate Normal (Normal)
[2016-11-22] MEDS: Budesonide/Formoterol 160/4.5 MDI IH SCH ×2 (08:12→20:28)
[2016-11-22] MEDS: Pantoprazole 40 MG VIAL IVP SCH (09:42)
[2016-11-22] MEDS: Aspirin Enteric Coated 81 MG Tablet PO SCH (09:43)
[2016-11-22] MEDS: Loratadine 10 MG TABLET PO SCH (09:43)
[2016-11-22] MEDS: clonazePAM 1 MG TABLET PO PRN ×2 (09:43→21:18)
[2016-11-22] MEDS: Azithromycin 250 MG TABLET PO SCH (09:44)
[2016-11-22] MEDS: amLODIPine 5 MG TABLET PO SCH (09:44)
[2016-11-22] MEDS: Roflumilast [Daliresp] 500 MCG PO SCH (09:45)
[2016-11-22] MEDS: (Umeclidinium Bromide [Incruse Ellipta] 62.5 MCG) IH SCH (09:45)
[2016-11-22] MEDS: Insulin LISPRO 300 UNITS/3 ML VIAL SQ SCH ×4 (09:46→21:19)
[2016-11-22] MEDS: Azelastine 0.1% Nasal Spray 30 ML BOTTLE NS SCH ×2 (09:47→21:19)
[2016-11-22] MEDS: Acetaminophen 325 MG TABLET PO PRN (12:35)
--- NOTE | 2016-11-22 14:32 | Internal Med Progress Note ---
Date of Encounter: 11/22/16 Time of Encounter: 13:00 - Assessment and plan (1) Acute and chronic respiratory failure with hypoxia Current Visit: Yes Status: Acute Assessment and plan: Responding to O2 by [place] continue same (2) Pneumonia Current Visit: Yes Status: Acute Assessment and plan: Suspected, management as in sepsis Qualifiers: Pneumonia type: due to unspecified organism Laterality: unspecified laterality Lung location: unspecified part of lung Qualified Code(s): J18.9 - Pneumonia, unspecified organism (3) Acute exacerbation of chronic obstructive airways disease Current Visit: Yes Status: Acute Assessment and plan: Continue current management D/C solumedrol Change to prednisone po Continue duonebs prn (4) Severe sepsis Current Visit: Yes Status: Acute Assessment and plan: Patient with respiratory symptoms, tachycardia, tachypnea, hypoxia, leukocytosis , and lactic acidosis on presentation He has been afebrile since admission, no hypothermia Lactate improving 4.1-3.6-2.3 BP has remained high normal values Renal function remains stable Continue ceftriaxone and azithromcyin Follow cultures (5) Lactic acidosis Current Visit: Yes Status: Acute Assessment and plan: As above (6) Essential hypertension Current Visit: Yes Status: Chronic Assessment and plan: High normal, possibly from steroids Increase lopressor Continue Norvasc 10, continue to monitor (7) Fatty liver Current Visit: Yes Status: Chronic Assessment and plan: Chronic, LFT is WNL (8) Borderline diabetes Current Visit: Yes Status: Chronic Assessment and plan: A1C 6 Continue sliding scale insulin Monitor FS (9) GERD (gastroesophageal reflux disease) Current Visit: Yes Status: Chronic Assessment and plan: Continue home meds Qualifiers: Esophagitis presence: esophagitis presence not specified Qualified Code(s) : K21.9 - Gastro-esophageal reflux disease without esophagitis (10) Morbid obesity with BMI of 40.0-44.9, adult Current Visit: Yes Status: Chronic (11) Obstructive sleep apnea Current Visit: Yes Status: Chronic Assessment and plan: BiPAP at night - Subjective Interval history: 61 Y/O M being managed for severe sepsis from a probable pneumonia, COPD exacerbation and acute on chronic hypoxic respiratory failure He has a PMH of HTN, HLD, Pre-DM, Morbid Obesity, VANI on CPAP, COPD on home O2, He is seen at bedside He reports still being short of breath and audibly wheezing He believes he has made a little improvement - Constitutional Vitals: Temp Pulse Resp BP Pulse Ox 97.3 F L 81 18 155/90 97 11/22/16 11:24 11/22/16 11:24 11/22/16 11:50 11/22/16 11:24 11/22/16 11:50 General appearance: Present: A&O X 3, morbidly obese, pleasant, no acute distress - Head Head exam: Present: atraumatic, normocephalic - Eye Eye exam: Present: PERRL, conjuntiva pink, sclera anicteric Pupils: Present: PERRL - Neck Neck exam general surgery: Present: supple, trachea midline. Absent: lymphadenopathy - Respiratory Respiratory exam: Present: rhonchi, wheezes. Absent: accessory muscle use, rales - Cardiovascular Cardiovascular exam: Present: RRR, +S1, +S2. Absent: diastolic murmur, gallop, rubs, systolic murmur - GI/Abdominal GI/Abdominal exam: Present: normal bowel sounds, soft, no peritoneal signs. Absent: distended, tenderness - Extremities Exam Extremities exam: Present: warm, radial pulses palpable and symetrical. Absent : calf tenderness, cyanotic, pedal edema - Neurological Exam Neurological exam: Present: CN II-XII intact, oriented X3, no focal deficits. Absent: pronater drift, facial droop, speech deficit - Skin Skin exam: Present: dry Internal Medicine: Result - Labs CBC & Chem 7: 11/22/16 04:21 11/22/16 04:21 Labs: Short CBC 11/22/16 Range/Units 04:21 WBC 12.6 H (4.3-11.1) K/mcL Hgb 11.1 L (12.9-16.9) g/dL Hct 35.6 L (37.5-50.1) % Plt Count 304 (140-400) K/mcL Neutrophils # 10.6 H (1.6-8.9) K/mcL BMP 11/22/16 04:21 Sodium 140 Potassium 4.4 Chloride 106 Carbon Dioxide 26 BUN 21 Creatinine 0.90 Glucose 180 H Calcium 9.4 - ABG Interpretation ABG results: PT/INR, D-dimer PT 11.3 Seconds (9.4-12.1) 11/20/16 09:36 - VTE Documentation of Mechanical Device: Intermittent pneumatic compression device Consult Discharge Plan - Plan Referrals: Bryce Jones DO [Primary Care Provider] -
[2016-11-23] MEDS: Ipratropium/Albuterol Neb 3 ML IH SCH ×6 (04:05→23:40)
[2016-11-23 05:18] LABS: Basophils % 0.3 %; Eosinophils % 0.1 %; Hematocrit 34.6 % (37.5-50.1); Hemoglobin 10.8 g/dL (12.9-16.9); Lymphocytes # 2.5 K/mcL (0.6-4.6); Lymphocytes % 19.8 %; Mean Corpuscular HGB Conc 31.2 g/dL (31.6-35.5); Mean Corpuscular Hemoglobin 26.3 pg (28.0-33.3); Mean Corpuscular Volume 84.4 fL (83.0-100.0); Mean Platelet Volume 8.7 fL (9.4-12.4); Monocytes # 0.9 K/mcL (0.0-1.3); Monocytes % 7.1 %; Neutrophils # 8.8 K/mcL (1.6-8.9); Platelet Count 315 K/mcL (140-400); Segmented Neutrophils % 68.7 %
[2016-11-23 06:01] LABS: BUN/Creatinine Ratio 30 (6-26); Blood Urea Nitrogen 27 mg/dL (8-26); Calcium 9.2 mg/dL (8.6-10.8); Carbon Dioxide 28 mEq/L (19-29); Chloride 106 mEq/L (98-109); Glucose 106 mg/dL (70-99); Osmolality,Calculated 298 (280-300); Sodium 141 mEq/L (136-145); eGFR For African Americans > 60 (> 60); eGFR For Non-African Americans > 60 (> 60)
[2016-11-23] MEDS: Insulin LISPRO 300 UNITS/3 ML VIAL SQ SCH ×4 (07:42→21:17)
[2016-11-23] MEDS: Budesonide/Formoterol 160/4.5 MDI IH SCH ×2 (07:51→20:03)
[2016-11-23] MEDS: Pantoprazole 40 MG VIAL IVP SCH (08:59)
[2016-11-23] MEDS: amLODIPine 5 MG TABLET PO SCH (09:00)
[2016-11-23] MEDS: Azithromycin 250 MG TABLET PO SCH (09:00)
[2016-11-23] MEDS: Aspirin Enteric Coated 81 MG Tablet PO SCH (09:00)
[2016-11-23] MEDS: Loratadine 10 MG TABLET PO SCH (09:00)
[2016-11-23] MEDS: predniSONE 20 MG TABLET PO SCH (09:00)
[2016-11-23] MEDS: Roflumilast [Daliresp] 500 MCG PO SCH (09:01)
[2016-11-23] MEDS: Azelastine 0.1% Nasal Spray 30 ML BOTTLE NS SCH ×2 (09:02→21:14)
[2016-11-23] MEDS: (Umeclidinium Bromide [Incruse Ellipta] 62.5 MCG) IH SCH (09:02)
[2016-11-23] MEDS: clonazePAM 1 MG TABLET PO PRN ×2 (10:06→21:14)
[2016-11-23] MEDS: Acetaminophen 325 MG TABLET PO PRN ×3 (10:09→21:14)
[2016-11-23] MEDS ORDERED: Magnesium Sulfate 1 GM in D5% in Water 100 ML IVPB ONE (11:05)
[2016-11-23] MEDS: Acetylcysteine 10% 2 ML INHSOL IH SCH ×3 (12:03→20:04)
--- NOTE | 2016-11-23 17:50 | Internal Med Progress Note ---
Date of Encounter: 11/23/16 Time of Encounter: 10:00 - Assessment and plan (1) Severe sepsis Current Visit: Yes Status: Acute Assessment and plan: Patient with respiratory symptoms, tachycardia, tachypnea, hypoxia, leukocytosis , and lactic acidosis on presentation He has been afebrile since admission, no hypothermia Lactate improving 4.1-3.6-2.3 BP has remained high normal values Renal function remains stable Continue ceftriaxone and azithromcyin Blood culture negative (2) Acute and chronic respiratory failure with hypoxia Current Visit: Yes Status: Acute Assessment and plan: Responding to O2 by NC continue same (3) Acute exacerbation of chronic obstructive airways disease Current Visit: Yes Status: Acute Assessment and plan: Continue current management Continue antibiotics and steroid Continue duonebs prn (4) Lactic acidosis Current Visit: Yes Status: Acute Assessment and plan: As above, improved after treatment (5) Pneumonia Current Visit: Yes Status: Acute Assessment and plan: Suspected, management as in sepsis Qualifiers: Pneumonia type: due to unspecified organism Laterality: unspecified laterality Lung location: unspecified part of lung Qualified Code(s): J18.9 - Pneumonia, unspecified organism (6) Borderline diabetes Current Visit: Yes Status: Chronic Assessment and plan: A1C 6 Continue sliding scale insulin Monitor FS (7) Essential hypertension Current Visit: Yes Status: Chronic Assessment and plan: High normal, possibly from steroids Increase lopressor Continue Norvasc 10, continue to monitor (8) Fatty liver Current Visit: Yes Status: Chronic Assessment and plan: Chronic, LFT is WNL (9) GERD (gastroesophageal reflux disease) Current Visit: Yes Status: Chronic Assessment and plan: Continue home meds Qualifiers: Esophagitis presence: esophagitis presence not specified Qualified Code(s) : K21.9 - Gastro-esophageal reflux disease without esophagitis (10) Morbid obesity with BMI of 40.0-44.9, adult Current Visit: Yes Status: Chronic Assessment and plan: Need lifestyle modification after discharge (11) Obstructive sleep apnea Current Visit: Yes Status: Chronic Assessment and plan: BiPAP at night - Time Spent With Patient 25 - 35 minutes - Subjective Interval history: Patient is a 61-year-old male admitted for COPD exacerbation. Past medical history is significant for hypertension, hyperlipidemia, prediabetes, morbid obesity, VANI on CPAP, COPD on home oxygen. Patient was seen and examined. He is still in acute respiratory distress. Still shortness of breath. Vitals are stable. Respiratory rate 16, oxygen saturation 97 on 3 L oxygen. No chest pain. Mild to nonproductive cough. We will continue antibiotic, steroid, and bronchodilator. Add Mucomyst for cough/ sputum. Given 1 dose of magnesium to relieve wheezing. Continue close monitoring. - Constitutional Vitals: Temp Pulse Resp BP Pulse Ox 96.5 F L 84 16 125/68 97 11/23/16 15:37 11/23/16 15:37 11/23/16 15:37 11/23/16 15:37 11/23/16 15:37 General appearance: Present: mild distress, A&O X 3, morbidly obese, pleasant - Head Head exam: Present: atraumatic, normocephalic - Eye Eye exam: Present: PERRL, conjuntiva pink, sclera anicteric Pupils: Present: PERRL - Neck Neck exam general surgery: Present: supple, trachea midline. Absent: lymphadenopathy - Respiratory Respiratory exam: Present: CTAB, wheezes (Diffused wheezes bilaterally). Absent : accessory muscle use, rales, rhonchi - Cardiovascular Cardiovascular exam: Present: RRR, +S1, +S2. Absent: diastolic murmur, gallop, rubs, systolic murmur - GI/Abdominal GI/Abdominal exam: Present: normal bowel sounds, soft, no peritoneal signs. Absent: distended, tenderness - Extremities Exam Extremities exam: Present: warm, radial pulses palpable and symetrical. Absent : calf tenderness, cyanotic, pedal edema - Neurological Exam Neurological exam: Present: CN II-XII intact, oriented X3, no focal deficits. Absent: pronater drift, facial droop, speech deficit - Skin Skin exam: Present: dry, intact Internal Medicine: Result - Labs CBC & Chem 7: 11/23/16 05:01 11/23/16 05:01 Labs: Short CBC 11/23/16 Range/Units 05:01 WBC 12.7 H (4.3-11.1) K/mcL Hgb 10.8 L (12.9-16.9) g/dL Hct 34.6 L (37.5-50.1) % Plt Count 315 (140-400) K/mcL Neutrophils # 8.8 (1.6-8.9) K/mcL BMP 11/23/16 05:01 Sodium 141 Potassium 4.0 Chloride 106 Carbon Dioxide 28 BUN 27 H Creatinine 0.89 Glucose 106 H Calcium 9.2 - ABG Interpretation ABG results: PT/INR, D-dimer PT 11.3 Seconds (9.4-12.1) 11/20/16 09:36 - VTE Documentation of Mechanical Device: Intermittent pneumatic compression device Consult Discharge Plan - Plan Referrals: Bryce Jones DO [Primary Care Provider] -
[2016-11-24] MEDS: Acetylcysteine 10% 2 ML INHSOL IH SCH ×4 (03:46→20:43)
[2016-11-24] MEDS: Ipratropium/Albuterol Neb 3 ML IH SCH ×6 (03:46→20:43)
[2016-11-24 04:42] LABS: Basophils # 0.1 K/mcL (0.0-0.2); Basophils % 0.6 %; Eosinophils # 0.1 K/mcL (0.0-0.6); Eosinophils % 0.6 %; Hematocrit 34.6 % (37.5-50.1); Hemoglobin 11.1 g/dL (12.9-16.9); Lymphocytes # 2.5 K/mcL (0.6-4.6); Lymphocytes % 19.9 %; Mean Corpuscular HGB Conc 32.1 g/dL (31.6-35.5); Mean Corpuscular Hemoglobin 27.1 pg (28.0-33.3); Mean Corpuscular Volume 84.4 fL (83.0-100.0); Mean Platelet Volume 9.1 fL (9.4-12.4); Monocytes # 0.9 K/mcL (0.0-1.3); Monocytes % 7.6 %; Neutrophils # 8.2 K/mcL (1.6-8.9); Platelet Count 314 K/mcL (140-400); Red Cell Distribution Width 15.9 % (11.5-14.5); Segmented Neutrophils % 66.3 %
[2016-11-24 05:01] LABS: BUN/Creatinine Ratio 30 (6-26); Blood Urea Nitrogen 25 mg/dL (8-26); Calcium 8.9 mg/dL (8.6-10.8); Carbon Dioxide 26 mEq/L (19-29); Chloride 106 mEq/L (98-109); Glucose 116 mg/dL (70-99); Osmolality,Calculated 299 (280-300); Sodium 142 mEq/L (136-145); eGFR For African Americans > 60 (> 60); eGFR For Non-African Americans > 60 (> 60)
[2016-11-24] MEDS ORDERED: Dextromethorphan Polistrx(12h) 30 MG/5 ML UDC PO STA (05:56)
[2016-11-24] MEDS ORDERED: Benzonatate 100 MG CAPSULE PO PRN (05:56)
[2016-11-24] MEDS ORDERED: Ipratropium Neb 0.5 MG NEBULIZER IH STA (05:58)
[2016-11-24] MEDS: Budesonide/Formoterol 160/4.5 MDI IH SCH ×2 (08:18→20:43)
[2016-11-24] MEDS: predniSONE 20 MG TABLET PO SCH (08:39)
[2016-11-24] MEDS: Insulin LISPRO 300 UNITS/3 ML VIAL SQ SCH ×4 (08:39→21:55)
[2016-11-24] MEDS: Azelastine 0.1% Nasal Spray 30 ML BOTTLE NS SCH ×2 (08:39→21:55)
[2016-11-24] MEDS: Loratadine 10 MG TABLET PO SCH (08:41)
[2016-11-24] MEDS: Aspirin Enteric Coated 81 MG Tablet PO SCH (08:41)
[2016-11-24] MEDS: (Umeclidinium Bromide [Incruse Ellipta] 62.5 MCG) IH SCH (08:42)
[2016-11-24] MEDS: amLODIPine 5 MG TABLET PO SCH (08:42)
[2016-11-24] MEDS: Azithromycin 250 MG TABLET PO SCH (08:42)
[2016-11-24] MEDS: Roflumilast [Daliresp] 500 MCG PO SCH (08:42)
[2016-11-24] MEDS: clonazePAM 1 MG TABLET PO PRN ×2 (09:27→21:56)
[2016-11-24] MEDS ORDERED: Ketorolac 30 MG/ML VIAL IVP PRN (10:00)
[2016-11-24] MEDS: Ketorolac 30 MG/ML VIAL IVP PRN ×2 (13:18→21:57)
--- NOTE | 2016-11-24 16:59 | Internal Med Progress Note ---
Date of Encounter: 11/24/16 Time of Encounter: 09:00 - Assessment and plan (1) Severe sepsis Current Visit: Yes Status: Acute Assessment and plan: Patient with respiratory symptoms, tachycardia, tachypnea, hypoxia, leukocytosis , and lactic acidosis on presentation He has been afebrile since admission, no hypothermia Lactate improving 4.1-3.6-2.3-1.3 BP has remained high normal values Renal function remains stable Continue ceftriaxone and azithromcyin Blood culture negative (2) Acute and chronic respiratory failure with hypoxia Current Visit: Yes Status: Acute Assessment and plan: Responding to O2 by NC continue same (3) Acute exacerbation of chronic obstructive airways disease Current Visit: Yes Status: Acute Assessment and plan: Continue current management Continue antibiotics and steroid Continue duonebs prn (4) Lactic acidosis Current Visit: Yes Status: Acute Assessment and plan: As above, improved after treatment (5) Pneumonia Current Visit: Yes Status: Acute Assessment and plan: Suspected, management as in sepsis Qualifiers: Pneumonia type: due to unspecified organism Laterality: unspecified laterality Lung location: unspecified part of lung Qualified Code(s): J18.9 - Pneumonia, unspecified organism (6) Borderline diabetes Current Visit: Yes Status: Chronic Assessment and plan: A1C 6 Continue sliding scale insulin Monitor FS (7) Essential hypertension Current Visit: Yes Status: Chronic Assessment and plan: High normal, possibly from steroids Increase lopressor Continue Norvasc 10, continue to monitor (8) Fatty liver Current Visit: Yes Status: Chronic Assessment and plan: Chronic, LFT is WNL (9) GERD (gastroesophageal reflux disease) Current Visit: Yes Status: Chronic Assessment and plan: Continue home meds Qualifiers: Esophagitis presence: esophagitis presence not specified Qualified Code(s) : K21.9 - Gastro-esophageal reflux disease without esophagitis (10) Morbid obesity with BMI of 40.0-44.9, adult Current Visit: Yes Status: Chronic Assessment and plan: Need lifestyle modification after discharge (11) Obstructive sleep apnea Current Visit: Yes Status: Chronic Assessment and plan: BiPAP at night - Time Spent With Patient 25 - 35 minutes - Subjective Interval history: Patient is a 61-year-old male admitted for COPD exacerbation. Past medical history is significant for hypertension, hyperlipidemia, prediabetes, morbid obesity, VANI on CPAP, COPD on home oxygen. Patient was seen and examined. Patient's shortness of breath has improved. Vitals are stable. Respiratory rate 16, oxygen saturation 97 on 3 L oxygen. No chest pain. Mild to nonproductive cough. We will continue antibiotic, steroid, and bronchodilator. Add Mucomyst for cough/sputum. Continue close monitoring. - Constitutional Vitals: Temp Pulse Resp BP Pulse Ox 96.3 F L 79 14 117/70 96 11/24/16 15:18 11/24/16 15:18 11/24/16 15:20 11/24/16 15:18 11/24/16 15:20 General appearance: Present: mild distress, A&O X 3, morbidly obese, pleasant - Head Head exam: Present: atraumatic, normocephalic - Eye Eye exam: Present: PERRL, conjuntiva pink, sclera anicteric Pupils: Present: PERRL - Neck Neck exam general surgery: Present: supple, trachea midline. Absent: lymphadenopathy - Respiratory Respiratory exam: Present: CTAB, wheezes (Scattered wheezes bilaterally). Absent: accessory muscle use, rales, rhonchi - Cardiovascular Cardiovascular exam: Present: RRR, +S1, +S2. Absent: diastolic murmur, gallop, rubs, systolic murmur - GI/Abdominal GI/Abdominal exam: Present: normal bowel sounds, soft, no peritoneal signs. Absent: distended, tenderness - Extremities Exam Extremities exam: Present: warm, radial pulses palpable and symetrical. Absent : calf tenderness, cyanotic, pedal edema - Neurological Exam Neurological exam: Present: CN II-XII intact, oriented X3, no focal deficits. Absent: pronater drift, facial droop, speech deficit - Skin Skin exam: Present: dry, intact Internal Medicine: Result - Labs CBC & Chem 7: 11/24/16 04:15 11/24/16 04:15 Labs: Short CBC 11/24/16 Range/Units 04:15 WBC 12.3 H (4.3-11.1) K/mcL Hgb 11.1 L (12.9-16.9) g/dL Hct 34.6 L (37.5-50.1) % Plt Count 314 (140-400) K/mcL Neutrophils # 8.2 (1.6-8.9) K/mcL BMP 11/24/16 04:15 Sodium 142 Potassium 4.0 Chloride 106 Carbon Dioxide 26 BUN 25 Creatinine 0.83 Glucose 116 H Calcium 8.9 - ABG Interpretation ABG results: PT/INR, D-dimer PT 11.3 Seconds (9.4-12.1) 11/20/16 09:36 - VTE Documentation of Mechanical Device: Intermittent pneumatic compression device Consult Discharge Plan - Plan Referrals: Bryce Jones DO [Primary Care Provider] -
--- NOTE | 2016-11-24 19:37 | Electrocardiograph Report ---
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
[2016-11-24] MEDS: Dextromethorphan Polistrx(12h) 30 MG/5 ML UDC PO SCH (22:08)
[2016-11-25] MEDS: Ipratropium/Albuterol Neb 3 ML IH SCH ×6 (00:04→20:48)
[2016-11-25] MEDS: Acetylcysteine 10% 2 ML INHSOL IH SCH ×4 (03:29→20:48)
[2016-11-25 05:10] LABS: Basophils # 0.1 K/mcL (0.0-0.2); Basophils % 0.5 %; Eosinophils # 0.2 K/mcL (0.0-0.6); Eosinophils % 1.5 %; Hematocrit 35.8 % (37.5-50.1); Hemoglobin 11.2 g/dL (12.9-16.9); Immature Granulocytes % 4.7 % (0-4); Lymphocytes # 3.1 K/mcL (0.6-4.6); Lymphocytes % 22.5 %; Mean Corpuscular HGB Conc 31.3 g/dL (31.6-35.5); Mean Corpuscular Hemoglobin 26.7 pg (28.0-33.3); Mean Corpuscular Volume 85.2 fL (83.0-100.0); Mean Platelet Volume 8.9 fL (9.4-12.4); Monocytes # 0.9 K/mcL (0.0-1.3); Monocytes % 6.6 %; Neutrophils # 8.7 K/mcL (1.6-8.9); Platelet Count 298 K/mcL (140-400); Red Cell Distribution Width 15.9 % (11.5-14.5); Segmented Neutrophils % 64.2 %
[2016-11-25 05:27] LABS: BUN/Creatinine Ratio 30 (6-26); Blood Urea Nitrogen 25 mg/dL (8-26); Calcium 8.9 mg/dL (8.6-10.8); Carbon Dioxide 28 mEq/L (19-29); Chloride 105 mEq/L (98-109); Glucose 115 mg/dL (70-99); Magnesium 2.2 mg/dL (1.6-2.6); Osmolality,Calculated 295 (280-300); Potassium 3.9 mEq/L (3.5-4.5); Sodium 140 mEq/L (136-145); eGFR For African Americans > 60 (> 60); eGFR For Non-African Americans > 60 (> 60)
[2016-11-25] MEDS: Ketorolac 30 MG/ML VIAL IVP PRN (05:39)
[2016-11-25] MEDS: Budesonide/Formoterol 160/4.5 MDI IH SCH ×2 (08:05→20:49)
[2016-11-25] MEDS: Insulin LISPRO 300 UNITS/3 ML VIAL SQ SCH ×4 (08:38→21:45)
[2016-11-25] MEDS: Azithromycin 250 MG TABLET PO SCH (10:01)
[2016-11-25] MEDS: Roflumilast [Daliresp] 500 MCG PO SCH (10:01)
[2016-11-25] MEDS: Loratadine 10 MG TABLET PO SCH (10:01)
[2016-11-25] MEDS: (Umeclidinium Bromide [Incruse Ellipta] 62.5 MCG) IH SCH (10:01)
[2016-11-25] MEDS: predniSONE 20 MG TABLET PO SCH (10:01)
[2016-11-25] MEDS: amLODIPine 5 MG TABLET PO SCH (10:02)
[2016-11-25] MEDS: Aspirin Enteric Coated 81 MG Tablet PO SCH (10:02)
[2016-11-25] MEDS: Azelastine 0.1% Nasal Spray 30 ML BOTTLE NS SCH ×2 (10:03→20:27)
[2016-11-25] MEDS: clonazePAM 1 MG TABLET PO PRN ×2 (10:08→20:36)
[2016-11-25] MEDS: Acetaminophen 325 MG TABLET PO PRN (15:24)
--- NOTE | 2016-11-25 18:04 | Internal Med Progress Note ---
Date of Encounter: 11/25/16 Time of Encounter: 10:00 - Assessment and plan (1) Severe sepsis Current Visit: Yes Status: Acute Assessment and plan: Patient with respiratory symptoms, tachycardia, tachypnea, hypoxia, leukocytosis , and lactic acidosis on presentation He has been afebrile since admission, no hypothermia Lactate improving 4.1-3.6-2.3-1.3 BP has remained high normal values Renal function remains stable Continue ceftriaxone and azithromcyin Blood culture negative (2) Acute and chronic respiratory failure with hypoxia Current Visit: Yes Status: Acute Assessment and plan: Responding to O2 by [place] continue same (3) Acute exacerbation of chronic obstructive airways disease Current Visit: Yes Status: Acute Assessment and plan: Continue current management Continue antibiotics and steroid Continue duonebs prn (4) Lactic acidosis Current Visit: Yes Status: Acute Assessment and plan: As above, improved after treatment (5) Pneumonia Current Visit: Yes Status: Acute Assessment and plan: Suspected, management as in sepsis Qualifiers: Pneumonia type: due to Pneumococcus Laterality: unspecified laterality Lung location: unspecified part of lung Qualified Code(s): J13 - Pneumonia due to Streptococcus pneumoniae (6) Borderline diabetes Current Visit: Yes Status: Chronic Assessment and plan: A1C 6 Continue sliding scale insulin Monitor FS (7) Essential hypertension Current Visit: Yes Status: Chronic Assessment and plan: High normal, possibly from steroids Increase lopressor Continue Norvasc 10, continue to monitor (8) Fatty liver Current Visit: Yes Status: Chronic Assessment and plan: Chronic, LFT is WNL (9) GERD (gastroesophageal reflux disease) Current Visit: Yes Status: Chronic Assessment and plan: Continue home meds Qualifiers: Esophagitis presence: esophagitis presence not specified Qualified Code(s) : K21.9 - Gastro-esophageal reflux disease without esophagitis (10) Morbid obesity with BMI of 40.0-44.9, adult Current Visit: Yes Status: Chronic Assessment and plan: Need lifestyle modification after discharge (11) Obstructive sleep apnea Current Visit: Yes Status: Chronic Assessment and plan: BiPAP at night - Time Spent With Patient 25 - 35 minutes - Subjective Interval history: Patient is a 61-year-old male admitted for COPD exacerbation. Past medical history is significant for hypertension, hyperlipidemia, prediabetes, morbid obesity, VANI on CPAP, COPD on home oxygen. Patient was seen and examined. Patient's shortness of breath has improved. Vitals are stable. Respiratory rate 16, oxygen saturation 97 on 3 L oxygen. No chest pain. Mild to nonproductive cough. We will continue antibiotic, steroid, and bronchodilator. Add Mucomyst for cough/sputum. Continue close monitoring. - Constitutional Vitals: Temp Pulse Resp BP Pulse Ox 98.0 F 92 17 122/81 94 L 11/25/16 15:07 11/25/16 15:07 11/25/16 15:07 11/25/16 15:07 11/25/16 15:07 General appearance: Present: mild distress, A&O X 3, morbidly obese, pleasant - Head Head exam: Present: atraumatic, normocephalic - Eye Eye exam: Present: PERRL, conjuntiva pink, sclera anicteric Pupils: Present: PERRL - Neck Neck exam general surgery: Present: supple, trachea midline. Absent: lymphadenopathy - Respiratory Respiratory exam: Present: CTAB, wheezes (Scattered wheezes b/l, Rt>Lt). Absent : accessory muscle use, rales, rhonchi - Cardiovascular Cardiovascular exam: Present: RRR, +S1, +S2. Absent: diastolic murmur, gallop, rubs, systolic murmur - GI/Abdominal GI/Abdominal exam: Present: normal bowel sounds, soft, no peritoneal signs. Absent: distended, tenderness - Extremities Exam Extremities exam: Present: warm, radial pulses palpable and symetrical. Absent : calf tenderness, cyanotic, pedal edema - Neurological Exam Neurological exam: Present: CN II-XII intact, oriented X3, no focal deficits. Absent: pronater drift, facial droop, speech deficit - Skin Skin exam: Present: dry, intact Internal Medicine: Result - Labs CBC & Chem 7: 11/25/16 04:40 11/25/16 04:40 Labs: Short CBC 11/25/16 Range/Units 04:40 WBC 13.5 H (4.3-11.1) K/mcL Hgb 11.2 L (12.9-16.9) g/dL Hct 35.8 L (37.5-50.1) % Plt Count 298 (140-400) K/mcL Neutrophils # 8.7 (1.6-8.9) K/mcL BMP 11/25/16 04:40 Sodium 140 Potassium 3.9 Chloride 105 Carbon Dioxide 28 BUN 25 Creatinine 0.84 Glucose 115 H Calcium 8.9 - ABG Interpretation ABG results: PT/INR, D-dimer PT 11.3 Seconds (9.4-12.1) 11/20/16 09:36 - VTE Documentation of Mechanical Device: Intermittent pneumatic compression device Consult Discharge Plan - Plan Referrals: rByce Jones DO [Primary Care Provider] -
[2016-11-25] MEDS: Dextromethorphan Polistrx(12h) 30 MG/5 ML UDC PO SCH (20:27)
[2016-11-26] MEDS: Ipratropium/Albuterol Neb 3 ML IH SCH ×6 (00:09→20:37)
[2016-11-26] MEDS: Acetylcysteine 10% 2 ML INHSOL IH SCH ×4 (03:27→20:37)
[2016-11-26 05:40] LABS: Basophils # 0.1 K/mcL (0.0-0.2); Basophils % 0.6 %; Eosinophils # 0.4 K/mcL (0.0-0.6); Eosinophils % 2.8 %; Hemoglobin 11.3 g/dL (12.9-16.9); Immature Granulocytes % 4.4 % (0-4); Lymphocytes # 2.8 K/mcL (0.6-4.6); Lymphocytes % 22.5 %; Mean Corpuscular HGB Conc 31.4 g/dL (31.6-35.5); Mean Corpuscular Hemoglobin 26.5 pg (28.0-33.3); Mean Corpuscular Volume 84.3 fL (83.0-100.0); Monocytes # 0.8 K/mcL (0.0-1.3); Platelet Count 277 K/mcL (140-400); Red Blood Count 4.27 M/mcL (4.19-5.50); Red Cell Distribution Width 16.1 % (11.5-14.5); Segmented Neutrophils % 63.7 %
[2016-11-26 05:53] LABS: BUN/Creatinine Ratio 29 (6-26); Blood Urea Nitrogen 24 mg/dL (8-26); Calcium 8.6 mg/dL (8.6-10.8); Carbon Dioxide 24 mEq/L (19-29); Chloride 106 mEq/L (98-109); Glucose 85 mg/dL (70-99); Osmolality,Calculated 293 (280-300); Sodium 140 mEq/L (136-145); eGFR For African Americans > 60 (> 60); eGFR For Non-African Americans > 60 (> 60)
[2016-11-26] MEDS: Budesonide/Formoterol 160/4.5 MDI IH SCH ×2 (07:32→20:37)
[2016-11-26] MEDS: predniSONE 20 MG TABLET PO SCH (09:31)
[2016-11-26] MEDS: Azithromycin 250 MG TABLET PO SCH (09:31)
[2016-11-26] MEDS: amLODIPine 5 MG TABLET PO SCH (09:32)
[2016-11-26] MEDS: Insulin LISPRO 300 UNITS/3 ML VIAL SQ SCH ×4 (09:32→20:27)
[2016-11-26] MEDS: Loratadine 10 MG TABLET PO SCH (09:32)
[2016-11-26] MEDS: Aspirin Enteric Coated 81 MG Tablet PO SCH (09:32)
[2016-11-26] MEDS: Roflumilast [Daliresp] 500 MCG PO SCH (09:33)
[2016-11-26] MEDS: Azelastine 0.1% Nasal Spray 30 ML BOTTLE NS SCH ×2 (09:33→20:34)
[2016-11-26] MEDS: (Umeclidinium Bromide [Incruse Ellipta] 62.5 MCG) IH SCH (09:33)
[2016-11-26] MEDS: Acetaminophen 325 MG TABLET PO PRN (09:40)
[2016-11-26] MEDS: Ciprofloxacin OPTH Soln 2.5 ML BOTTLE LEFT EYE SCH ×3 (12:35→20:34)
--- NOTE | 2016-11-26 18:18 | Internal Med Progress Note ---
Date of Encounter: 11/26/16 Time of Encounter: 10:00 - Assessment and plan (1) Severe sepsis Current Visit: Yes Status: Acute Assessment and plan: Patient with respiratory symptoms, tachycardia, tachypnea, hypoxia, leukocytosis , and lactic acidosis on presentation He has been afebrile since admission, no hypothermia Lactate improving 4.1-3.6-2.3-1.3 BP has remained high normal values Renal function remains stable Continue ceftriaxone and azithromcyin Blood culture negative (2) Acute and chronic respiratory failure with hypoxia Current Visit: Yes Status: Acute Assessment and plan: Responding to O2 by [place] continue same (3) Acute exacerbation of chronic obstructive airways disease Current Visit: Yes Status: Acute Assessment and plan: Continue current management Continue antibiotics and steroid Continue duonebs prn (4) Lactic acidosis Current Visit: Yes Status: Acute Assessment and plan: As above, improved after treatment (5) Pneumonia Current Visit: Yes Status: Acute Assessment and plan: Suspected, management as in sepsis Qualifiers: Pneumonia type: due to Pneumococcus Laterality: unspecified laterality Lung location: unspecified part of lung Qualified Code(s): J13 - Pneumonia due to Streptococcus pneumoniae (6) Borderline diabetes Current Visit: Yes Status: Chronic Assessment and plan: A1C 6 Continue sliding scale insulin Monitor FS (7) Essential hypertension Current Visit: Yes Status: Chronic Assessment and plan: High normal, possibly from steroids Increase lopressor Continue Norvasc 10, continue to monitor (8) Fatty liver Current Visit: Yes Status: Chronic Assessment and plan: Chronic, LFT is WNL (9) GERD (gastroesophageal reflux disease) Current Visit: Yes Status: Chronic Assessment and plan: Continue home meds Qualifiers: Esophagitis presence: esophagitis presence not specified Qualified Code(s) : K21.9 - Gastro-esophageal reflux disease without esophagitis (10) Morbid obesity with BMI of 40.0-44.9, adult Current Visit: Yes Status: Chronic Assessment and plan: Need lifestyle modification after discharge (11) Obstructive sleep apnea Current Visit: Yes Status: Chronic Assessment and plan: BiPAP at night - Time Spent With Patient 25 - 35 minutes - Subjective Interval history: Patient is a 61-year-old male admitted for COPD exacerbation. Past medical history is significant for hypertension, hyperlipidemia, prediabetes, morbid obesity, VANI on CPAP, COPD on home oxygen. Patient was seen and examined. Patient's shortness of breath has improved. However patient said is still not his baseline yet. Vitals are stable. Respiratory rate 16, oxygen saturation 97 on 3 L oxygen. No chest pain. Mild to nonproductive cough. We will continue antibiotic, steroid, and bronchodilator. Add Mucomyst for cough/sputum. Continue close monitoring. - Constitutional Vitals: Temp Pulse Resp BP Pulse Ox 97.5 F L 84 18 120/64 92 L 11/26/16 16:09 11/26/16 16:09 11/26/16 16:40 11/26/16 16:09 11/26/16 16:40 General appearance: Present: mild distress, A&O X 3, morbidly obese, pleasant - Head Head exam: Present: atraumatic, normocephalic - Eye Eye exam: Present: PERRL, conjuntiva pink, sclera anicteric Pupils: Present: PERRL - Neck Neck exam general surgery: Present: supple, trachea midline. Absent: lymphadenopathy - Respiratory Respiratory exam: Present: CTAB. Absent: accessory muscle use, rales, rhonchi, wheezes Additional comments: Cause of breath sound, very few wheezing on the right side - Cardiovascular Cardiovascular exam: Present: RRR, +S1, +S2. Absent: diastolic murmur, gallop, rubs, systolic murmur - GI/Abdominal GI/Abdominal exam: Present: normal bowel sounds, soft, no peritoneal signs. Absent: distended, tenderness - Extremities Exam Extremities exam: Present: warm, radial pulses palpable and symetrical. Absent : calf tenderness, cyanotic, pedal edema - Neurological Exam Neurological exam: Present: CN II-XII intact, oriented X3, no focal deficits. Absent: pronater drift, facial droop, speech deficit - Skin Skin exam: Present: dry, intact Internal Medicine: Result - Labs CBC & Chem 7: 11/26/16 04:48 11/26/16 04:48 Labs: Short CBC 11/26/16 Range/Units 04:48 WBC 12.6 H (4.3-11.1) K/mcL Hgb 11.3 L (12.9-16.9) g/dL Hct 36.0 L (37.5-50.1) % Plt Count 277 (140-400) K/mcL Neutrophils # 8.0 (1.6-8.9) K/mcL BMP 11/26/16 04:48 Sodium 140 Potassium 4.0 Chloride 106 Carbon Dioxide 24 BUN 24 Creatinine 0.82 Glucose 85 Calcium 8.6 - ABG Interpretation ABG results: PT/INR, D-dimer PT 11.3 Seconds (9.4-12.1) 11/20/16 09:36 - VTE Documentation of Mechanical Device: Intermittent pneumatic compression device Consult Discharge Plan - Plan Referrals: Bryce Jones DO [Primary Care Provider] -
[2016-11-26] MEDS: Dextromethorphan Polistrx(12h) 30 MG/5 ML UDC PO SCH (20:26)
[2016-11-26] MEDS: clonazePAM 1 MG TABLET PO PRN (20:34)
[2016-11-27] MEDS: Ipratropium/Albuterol Neb 3 ML IH SCH ×6 (01:11→20:50)
[2016-11-27] MEDS: Ciprofloxacin OPTH Soln 2.5 ML BOTTLE LEFT EYE SCH ×7 (01:37→23:50)
[2016-11-27 03:51] LABS: Basophils # 0.1 K/mcL (0.0-0.2); Basophils % 0.6 %; Eosinophils # 0.2 K/mcL (0.0-0.6); Eosinophils % 1.5 %; Hematocrit 36.7 % (37.5-50.1); Hemoglobin 11.6 g/dL (12.9-16.9); Immature Granulocytes % 3.9 % (0-4); Lymphocytes # 2.5 K/mcL (0.6-4.6); Mean Corpuscular HGB Conc 31.6 g/dL (31.6-35.5); Mean Corpuscular Hemoglobin 26.5 pg (28.0-33.3); Mean Corpuscular Volume 83.8 fL (83.0-100.0); Monocytes # 0.9 K/mcL (0.0-1.3); Monocytes % 6.1 %; Neutrophils # 10.3 K/mcL (1.6-8.9); Platelet Count 309 K/mcL (140-400); Red Blood Count 4.38 M/mcL (4.19-5.50); Red Cell Distribution Width 15.9 % (11.5-14.5); Segmented Neutrophils % 70.9 %
[2016-11-27 04:02] LABS: BUN/Creatinine Ratio 23 (6-26); Blood Urea Nitrogen 22 mg/dL (8-26); Calcium 8.8 mg/dL (8.6-10.8); Carbon Dioxide 26 mEq/L (19-29); Chloride 104 mEq/L (98-109); Glucose 102 mg/dL (70-99); Osmolality,Calculated 294 (280-300); Potassium 4.1 mEq/L (3.5-4.5); Sodium 140 mEq/L (136-145); eGFR For African Americans > 60 (> 60); eGFR For Non-African Americans > 60 (> 60)
[2016-11-27] MEDS: Acetylcysteine 10% 2 ML INHSOL IH SCH ×4 (04:28→20:50)
[2016-11-27] MEDS: Budesonide/Formoterol 160/4.5 MDI IH SCH ×2 (07:45→20:50)
[2016-11-27] MEDS: Insulin LISPRO 300 UNITS/3 ML VIAL SQ SCH ×4 (10:12→20:59)
[2016-11-27] MEDS: (Umeclidinium Bromide [Incruse Ellipta] 62.5 MCG) IH SCH (10:17)
[2016-11-27] MEDS: Roflumilast [Daliresp] 500 MCG PO SCH (10:18)
[2016-11-27] MEDS: predniSONE 20 MG TABLET PO SCH (10:20)
[2016-11-27] MEDS: Aspirin Enteric Coated 81 MG Tablet PO SCH (10:20)
[2016-11-27] MEDS: Loratadine 10 MG TABLET PO SCH (10:20)
[2016-11-27] MEDS: amLODIPine 5 MG TABLET PO SCH (10:20)
[2016-11-27] MEDS: Azithromycin 250 MG TABLET PO SCH (10:20)
[2016-11-27] MEDS ORDERED: Furosemide 20 MG/2 ML VIAL IVP ONE (10:22)
[2016-11-27] MEDS: Azelastine 0.1% Nasal Spray 30 ML BOTTLE NS SCH ×2 (10:27→19:57)
[2016-11-27] MEDS: clonazePAM 1 MG TABLET PO PRN ×2 (10:27→21:01)
[2016-11-27] MEDS: Ciprofloxacin/Dex *EAR* Susp 7.5 ML BOTTLE BOTH EARS SCH ×2 (11:30→19:58)
--- NOTE | 2016-11-27 17:45 | Internal Med Progress Note ---
Date of Encounter: 11/27/16 Time of Encounter: 10:00 - Assessment and plan (1) Severe sepsis Current Visit: Yes Status: Acute Assessment and plan: Patient with respiratory symptoms, tachycardia, tachypnea, hypoxia, leukocytosis , and lactic acidosis on presentation He has been afebrile since admission, no hypothermia Lactate improving 4.1-3.6-2.3-1.3 BP has remained high normal values Renal function remains stable Continue ceftriaxone and azithromcyin Blood culture negative (2) Acute and chronic respiratory failure with hypoxia Current Visit: Yes Status: Acute Assessment and plan: Responding to O2 by [place] continue same (3) Acute exacerbation of chronic obstructive airways disease Current Visit: Yes Status: Acute Assessment and plan: Continue current management Continue antibiotics and steroid Continue duonebs prn (4) Lactic acidosis Current Visit: Yes Status: Acute Assessment and plan: As above, improved after treatment (5) Pneumonia Current Visit: Yes Status: Acute Assessment and plan: Suspected, management as in sepsis Qualifiers: Pneumonia type: due to Pneumococcus Laterality: unspecified laterality Lung location: unspecified part of lung Qualified Code(s): J13 - Pneumonia due to Streptococcus pneumoniae (6) Borderline diabetes Current Visit: Yes Status: Chronic Assessment and plan: A1C 6 Continue sliding scale insulin Monitor FS (7) Essential hypertension Current Visit: Yes Status: Chronic Assessment and plan: High normal, possibly from steroids Increase lopressor Continue Norvasc 10, continue to monitor (8) Fatty liver Current Visit: Yes Status: Chronic Assessment and plan: Chronic, LFT is WNL (9) GERD (gastroesophageal reflux disease) Current Visit: Yes Status: Chronic Assessment and plan: Continue home meds Qualifiers: Esophagitis presence: esophagitis presence not specified Qualified Code(s) : K21.9 - Gastro-esophageal reflux disease without esophagitis (10) Morbid obesity with BMI of 40.0-44.9, adult Current Visit: Yes Status: Chronic Assessment and plan: Need lifestyle modification after discharge (11) Obstructive sleep apnea Current Visit: Yes Status: Chronic Assessment and plan: BiPAP at night - Subjective Interval history: Patient is a 61-year-old male admitted for COPD exacerbation. Past medical history is significant for hypertension, hyperlipidemia, prediabetes, morbid obesity, VANI on CPAP, COPD on home oxygen. Patient was seen and examined. Patient's shortness of breath has improved. Patient did complain of swelling of the legs. And both ear pain. Vitals are stable. Respiratory rate 16, oxygen saturation 97 on 3 L oxygen. No chest pain. Mild nonproductive cough. Patient has mild bilaterally pedal pitting edema. No calf pain/tenderness. His echo on 09/25/16 was reviewed, shows normal systolic function. Will try Lasix at low dose. Ear examination shows redness in both external ear tunnul, will order ear abx drips. We will continue antibiotic, steroid, and bronchodilator. Add Mucomyst for cough/sputum. Continue close monitoring. - Constitutional Vitals: Temp Pulse Resp BP Pulse Ox 98.2 F 74 16 116/56 96 11/27/16 14:58 11/27/16 14:58 11/27/16 15:47 11/27/16 14:58 11/27/16 15:47 General appearance: Present: mild distress, A&O X 3, morbidly obese, pleasant - Head Head exam: Present: atraumatic, normocephalic - Eye Eye exam: Present: PERRL, conjuntiva pink, sclera anicteric Pupils: Present: PERRL - Neck Neck exam general surgery: Present: supple, trachea midline. Absent: lymphadenopathy - Respiratory Respiratory exam: Present: CTAB. Absent: accessory muscle use, rales, rhonchi, wheezes - Cardiovascular Cardiovascular exam: Present: RRR, +S1, +S2. Absent: diastolic murmur, gallop, rubs, systolic murmur - GI/Abdominal GI/Abdominal exam: Present: normal bowel sounds, soft, no peritoneal signs. Absent: distended, tenderness - Extremities Exam Extremities exam: Present: warm, radial pulses palpable and symetrical. Absent : calf tenderness, cyanotic, pedal edema - Neurological Exam Neurological exam: Present: CN II-XII intact, oriented X3, no focal deficits. Absent: pronater drift, facial droop, speech deficit - Skin Skin exam: Present: dry, intact Internal Medicine: Result - Labs CBC & Chem 7: 11/27/16 03:18 11/27/16 03:18 Labs: Short CBC 11/27/16 Range/Units 03:18 WBC 14.5 H (4.3-11.1) K/mcL Hgb 11.6 L (12.9-16.9) g/dL Hct 36.7 L (37.5-50.1) % Plt Count 309 (140-400) K/mcL Neutrophils # 10.3 H (1.6-8.9) K/mcL BMP 11/27/16 03:18 Sodium 140 Potassium 4.1 Chloride 104 Carbon Dioxide 26 BUN 22 Creatinine 0.94 Glucose 102 H Calcium 8.8 - ABG Interpretation ABG results: PT/INR, D-dimer PT 11.3 Seconds (9.4-12.1) 11/20/16 09:36 - VTE Documentation of Mechanical Device: Intermittent pneumatic compression device Consult Discharge Plan - Plan Referrals: Bryce Jones DO [Primary Care Provider] -
[2016-11-27] MEDS ORDERED: predniSONE 20 MG TABLET PO SCH (18:13)
[2016-11-27] MEDS: Dextromethorphan Polistrx(12h) 30 MG/5 ML UDC PO SCH (19:57)
[2016-11-28] MEDS: Ipratropium/Albuterol Neb 3 ML IH SCH ×4 (00:34→11:18)
[2016-11-28] MEDS: Acetylcysteine 10% 2 ML INHSOL IH SCH ×2 (05:00→08:29)
[2016-11-28] MEDS: Ciprofloxacin OPTH Soln 2.5 ML BOTTLE LEFT EYE SCH ×2 (05:24→08:45)
[2016-11-28] MEDS: Ciprofloxacin/Dex *EAR* Susp 7.5 ML BOTTLE BOTH EARS SCH (05:24)
[2016-11-28 07:35] LABS: BUN/Creatinine Ratio 25 (6-26); Blood Urea Nitrogen 22 mg/dL (8-26); Carbon Dioxide 26 mEq/L (19-29); Chloride 104 mEq/L (98-109); Glucose 100 mg/dL (70-99); Osmolality,Calculated 289 (280-300); Sodium 138 mEq/L (136-145); eGFR For African Americans > 60 (> 60); eGFR For Non-African Americans > 60 (> 60)
[2016-11-28 08:05] LABS: Basophils # 0.1 K/mcL (0.0-0.2); Basophils % 0.5 %; Eosinophils # 0.3 K/mcL (0.0-0.6); Eosinophils % 1.6 %; Hematocrit 38.1 % (37.5-50.1); Hemoglobin 12.2 g/dL (12.9-16.9); Immature Granulocytes % 3.1 % (0-4); Lymphocytes # 3.2 K/mcL (0.6-4.6); Lymphocytes % 20.7 %; Mean Corpuscular Hemoglobin 27.2 pg (28.0-33.3); Mean Platelet Volume 9.4 fL (9.4-12.4); Monocytes # 1.1 K/mcL (0.0-1.3); Monocytes % 6.8 %; Neutrophils # 10.5 K/mcL (1.6-8.9); Platelet Count 318 K/mcL (140-400); Red Blood Count 4.48 M/mcL (4.19-5.50); Red Cell Distribution Width 16.2 % (11.5-14.5); Segmented Neutrophils % 67.3 %
[2016-11-28] MEDS: Budesonide/Formoterol 160/4.5 MDI IH SCH (08:31)
[2016-11-28] MEDS: Azithromycin 250 MG TABLET PO SCH (08:43)
[2016-11-28] MEDS: Aspirin Enteric Coated 81 MG Tablet PO SCH (08:44)
[2016-11-28] MEDS: clonazePAM 1 MG TABLET PO PRN (08:45)
[2016-11-28] MEDS: amLODIPine 5 MG TABLET PO SCH (08:45)
[2016-11-28] MEDS: Insulin LISPRO 300 UNITS/3 ML VIAL SQ SCH (08:45)
[2016-11-28] MEDS: Azelastine 0.1% Nasal Spray 30 ML BOTTLE NS SCH (08:45)
[2016-11-28] MEDS: Loratadine 10 MG TABLET PO SCH (08:45)
[2016-11-28] MEDS: (Umeclidinium Bromide [Incruse Ellipta] 62.5 MCG) IH SCH (08:46)
[2016-11-28] MEDS: Roflumilast [Daliresp] 500 MCG PO SCH (08:46)
[2016-11-28 11:07] VITALS: BP 125/69
--- NOTE | 2016-11-28 11:08 | Discharge Summary ---
Date of Encounter: 11/28/16 Time of Encounter: 10:00 - Discharge Diagnosis (1) Severe sepsis Priority: Primary Status: Acute (2) Acute and chronic respiratory failure with hypoxia Priority: Primary Status: Acute (3) Acute exacerbation of chronic obstructive airways disease Priority: Primary Status: Acute (4) Lactic acidosis Priority: Primary Status: Acute (5) Pneumonia Priority: Primary Status: Acute Qualifiers: Pneumonia type: due to Pneumococcus Laterality: unspecified laterality Lung location: unspecified part of lung Qualified Code(s): J13 - Pneumonia due to Streptococcus pneumoniae (6) Borderline diabetes Priority: Secondary Status: Chronic (7) Essential hypertension Priority: Secondary Status: Chronic (8) Fatty liver Priority: Secondary Status: Chronic (9) GERD (gastroesophageal reflux disease) Priority: Secondary Status: Chronic Qualifiers: Esophagitis presence: esophagitis presence not specified Qualified Code(s) : K21.9 - Gastro-esophageal reflux disease without esophagitis (10) Morbid obesity with BMI of 40.0-44.9, adult Priority: Secondary Status: Chronic (11) Obstructive sleep apnea Priority: Secondary Status: Chronic - Discharge Medications Prescriptions: Ciprofloxacin OPTH Soln [Ciloxan OPTH Soln] 2 drop LEFT EYE Q4HR #1 bottle GuaiFENesin/Dextromethorphan [Robitussin/Dm] 10 ml PO Q6HR 14 Days Azithromycin [Zithromax] 250 mg PO DAILY #7 tablet Ciprofloxacin/Dex *EAR* Susp [Ciprodex *EAR* Susp] 4 drop BOTH EARS BID #2 bottle Furosemide [Lasix] 10 mg PO DAILY #14 tablet Omeprazole [PriLOSEC] 20 mg PO DAILY@0630 #14 capsule. PredniSONE 20 mg PO DAILY #10 tablet Tiotropium [Spiriva] 18 mcg IH 0700 #30 capsule Home Medications: Albuterol Sulfate [Albuterol Inhaler] 2 puff IH Q4HR PRN 03/16/16 [History] Amlodipine Besylate 10 mg PO DAILY 03/16/16 [History] Azelastine 0.1% Nasal [place] [Astelin] 1 spray NS BID 03/16/16 [History] Budesonide/Formoterol 160/4.5 [Symbicort 160/4.5] 2 puff IH BIDR 03/16/16 [ History] Cetirizine HCl [Zyrtec] 10 mg PO DAILY 03/16/16 [History] ClonazePAM [Klonopin] 1 mg PO BID PRN 03/16/16 [History] Docusate [Colace] 300 mg PO BID PRN 03/16/16 [History] Ergocalciferol (VITAMIN D2) [Vitamin D] 400 unit PO DAILY 03/16/16 [History] Esomeprazole Magnesium [Nexium] 40 mg PO BID 03/16/16 [History] Fluticasone Propionate Nasal [Flonase] 100 mcg NS DAILY 03/16/16 [History] Ketoconazole Shampoo [Nizoral Shampoo] 1 appl TP 3XW 03/16/16 [History] Polyethylene Glycol 3350 [MiraLAX] 17 gm PO DAILY 03/16/16 [History] Psyllium Seed (with Sugar) [Metamucil Powder] 1 each PO DAILY 03/16/16 [History] Roflumilast [Daliresp] 500 mcg PO DAILY 03/16/16 [History] Sodium Chloride [[place] Saline] 1 spray NS BID PRN 03/16/16 [History] Albuterol Neb [Proventil Neb] 2.5 mg IH Q2-4H PRN 09/21/16 [History] GuaiFENesin ER [Mucinex] 1,200 mg PO BID PRN #40 tbbp.12hr 09/30/16 [Rx] Metoprolol [Lopressor] 12.5 mg PO BID #30 tablet 09/30/16 [Rx] Montelukast [Singulair] 10 mg PO HS #30 tablet 09/30/16 [Rx] Metoclopramide [Reglan] 10 mg PO ACHS 11/03/16 [History] Umeclidinium [place] [Incruse Ellipta] 62.5 mcg IH DAILY 11/03/16 [History] Aspirin [Lo-Dose Aspirin EC] 81 mg PO DAILY #30 tablet. 11/05/16 [Rx] Oxygen 3 l .ROUTE AD 11/20/16 [History] Azithromycin [Zithromax] 250 mg PO DAILY #7 tablet 11/28/16 [Rx] Ciprofloxacin OPTH Soln [Ciloxan OPTH Soln] 2 drop LEFT EYE Q4HR #1 bottle 11/28 [Rx] Ciprofloxacin/Dex *EAR* Susp [Ciprodex *EAR* Susp] 4 drop BOTH EARS BID #2 bottle 11/28/16 [Rx] Furosemide [Lasix] 10 mg PO DAILY #14 tablet 11/28/16 [Rx] GuaiFENesin/Dextromethorphan [Robitussin/Dm] 10 ml PO Q6HR 14 Days 11/28/16 [Rx] Omeprazole [PriLOSEC] 20 mg PO DAILY@0630 #14 capsule. 11/28/16 [Rx] PredniSONE 20 mg PO DAILY #10 tablet 11/28/16 [Rx] Tiotropium [Spiriva] 18 mcg IH 0700 #30 capsule 11/28/16 [Rx] Allergies/Adverse Reactions: Allergies morphine Allergy (Verified 09/17/16 08:27) Difficulty Breathing sulfamethoxazole [From Bactrim] Allergy (Verified 10/12/16 20:21) Rash trimethoprim [From Bactrim] Allergy (Verified 10/12/16 20:21) Rash codeine Adverse Reaction (Verified 03/16/16 17:11) Nausea - Notes to Outpatient Provider 1. Will add Spirivia 18 mcg IH daily to home medication list. 2. Steroid tapering down to stop. 3. Patient complaining of leg swelling, will add low dose of by mouth Lasix to home medication list, possibly use only short-term. Please continue follow up. Date of admission: 11/20/16 09:03 Primary care physician: Bryce Madrid Consults: 11/20/16 09:13 Consult to Bleacher Operator [CONS] Routine Reason for SW Consult: currently has home o2, home health Discharging clinician: Yari Galicia Anticipated date of discharge: 11/28/16 - Patient Status Disposition: Home Health Service Condition: Fair Functional capacity at discharge: uses cane/walker Overall status at discharge: patient is back to baseline - Discharge Instructions Follow Up With: Bryce Jones DO [Primary Care Provider] - - Diet and Activity Activity: increase activity as tolerated Diet: low fat, low cholesterol Interval History: Mr. Herring is a 61 year old male with past medical history significant for COPD , chronic hypoxic respiratory failure on home oxygen, VANI, hypertension who presented to the hospital for evaluation of shortness of breath and chest pain. He says that he has had an upper respiratory tract infection a week ago and had been prescribed antibiotics and steroids. He has been taking his medication follow-up for his symptoms suddenly started getting worse around 3 AM this morning when he had severe shortness of breath associated with midsternal pressure-like chest pain worsened with cough, and cough productive of thick yellow and green sputum. He also reports 1 episode of coughing up blood, and small amount. In the emergency department he was found to be hypoxic, he was placed on BiPAP and was treated with Levaquin and IV steroids. Hospital course: Mr. Herring is a 61 year old male admitted as COPD exacerbation, patient was treated with antibiotics, steroids, and bronchodilator. He has a slow progression with COPD exacerbation. After treatment, his condition is getting better, less shortness of breath. It is about his baseline. We will discharge patient home and continue home oxygen and home BiPAP. Continue home health service. I saw and examined the patient today, he is awake alert, oriented 3. Still having mild shortness of breath but he said it is about his baseline. No fever , vitals are stable. Oxygen saturation 97% on 3 L oxygen. He will be discharged with by mouth antibiotics, tapering down steroids. Patient will follow-up with PCP as outpatient. - Time Spent with Patient Total time spent providing and/or coordinating discharge services: Greater than 30 minutes - Constitutional Vitals: Temp Pulse Resp BP Pulse Ox 98.0 F 75 12 106/55 95 11/28/16 06:51 11/28/16 06:51 11/28/16 06:51 11/28/16 06:51 11/28/16 06:51 General appearance: Present: mild distress, A&O X 3, morbidly obese, pleasant - Head Head exam: Present: atraumatic, normocephalic - Eye Eye exam: Present: PERRL, conjuntiva pink, sclera anicteric Pupils: Present: PERRL - Neck Neck exam general surgery: Present: supple, trachea midline. Absent: lymphadenopathy - Respiratory Respiratory exam: Present: CTAB. Absent: accessory muscle use, rales, rhonchi, wheezes Additional comments: Coarse breath sound bilaterally. - Cardiovascular Cardiovascular exam: Present: RRR, +S1, +S2. Absent: diastolic murmur, gallop, rubs, systolic murmur - GI/Abdominal GI/Abdominal exam: Present: normal bowel sounds, soft, no peritoneal signs. Absent: distended, tenderness - Extremities Exam Extremities exam: Present: warm, radial pulses palpable and symetrical. Absent : calf tenderness, cyanotic, pedal edema - Neurological Exam Neurological exam: Present: CN II-XII intact, oriented X3, no focal deficits. Absent: pronater drift, facial droop, speech deficit - Skin Skin exam: Present: dry, intact - VTE Documentation of Mechanical Device: Intermittent pneumatic compression device
--- NOTE | 2016-11-28 11:30 | Physician Discharge Referral ---
Home Health/Hosp Referral Info Transfer to: Home Health Provider in Charge Post Discharge: PCP - Diagnosis (1) Severe sepsis Status: Acute (2) Acute and chronic respiratory failure with hypoxia Status: Acute (3) Acute exacerbation of chronic obstructive airways disease Status: Acute (4) Lactic acidosis Status: Acute (5) Pneumonia Status: Acute (6) Borderline diabetes Status: Chronic (7) Essential hypertension Status: Chronic (8) Fatty liver Status: Chronic (9) GERD (gastroesophageal reflux disease) Status: Chronic (10) Morbid obesity with BMI of 40.0-44.9, adult Status: Chronic (11) Obstructive sleep apnea Status: Chronic - Respiratory Orders Oxygen / L per min (2-3) Smoking Cessation: Smoking cessation has been advised. For more information, call the [place] [address] Quit Line at 9-368-DOHQNOW. - Services Needed Following services are medically necessary services: Nursing, Home Health Aide, Physical Therapy, Occupational Therapy - Transfer Medications Prescriptions: Ciprofloxacin OPTH Soln [Ciloxan OPTH Soln] 2 drop LEFT EYE Q4HR #1 bottle GuaiFENesin/Dextromethorphan [Robitussin/Dm] 10 ml PO Q6HR 14 Days Azithromycin [Zithromax] 250 mg PO DAILY #7 tablet Ciprofloxacin/Dex *EAR* Susp [Ciprodex *EAR* Susp] 4 drop BOTH EARS BID #2 bottle Furosemide [Lasix] 10 mg PO DAILY #14 tablet Omeprazole [PriLOSEC] 20 mg PO DAILY@0630 #14 capsule. PredniSONE 20 mg PO DAILY #10 tablet Tiotropium [Spiriva] 18 mcg IH 0700 #30 capsule Home Medications: Albuterol Sulfate [Albuterol Inhaler] 2 puff IH Q4HR PRN 03/16/16 [History] Amlodipine Besylate 10 mg PO DAILY 03/16/16 [History] Azelastine 0.1% Nasal [place] [Astelin] 1 spray NS BID 03/16/16 [History] Budesonide/Formoterol 160/4.5 [Symbicort 160/4.5] 2 puff IH BIDR 03/16/16 [ History] Cetirizine HCl [Zyrtec] 10 mg PO DAILY 03/16/16 [History] ClonazePAM [Klonopin] 1 mg PO BID PRN 03/16/16 [History] Docusate [Colace] 300 mg PO BID PRN 03/16/16 [History] Ergocalciferol (VITAMIN D2) [Vitamin D] 400 unit PO DAILY 03/16/16 [History] Esomeprazole Magnesium [Nexium] 40 mg PO BID 03/16/16 [History] Fluticasone Propionate Nasal [Flonase] 100 mcg NS DAILY 03/16/16 [History] Ketoconazole Shampoo [Nizoral Shampoo] 1 appl TP 3XW 03/16/16 [History] Polyethylene Glycol 3350 [MiraLAX] 17 gm PO DAILY 03/16/16 [History] Psyllium Seed (with Sugar) [Metamucil Powder] 1 each PO DAILY 03/16/16 [History] Roflumilast [Daliresp] 500 mcg PO DAILY 03/16/16 [History] Sodium Chloride [[place] Saline] 1 spray NS BID PRN 03/16/16 [History] Albuterol Neb [Proventil Neb] 2.5 mg IH Q2-4H PRN 09/21/16 [History] GuaiFENesin ER [Mucinex] 1,200 mg PO BID PRN #40 tbbp.12hr 09/30/16 [Rx] Metoprolol [Lopressor] 12.5 mg PO BID #30 tablet 09/30/16 [Rx] Montelukast [Singulair] 10 mg PO HS #30 tablet 09/30/16 [Rx] Metoclopramide [Reglan] 10 mg PO ACHS 11/03/16 [History] Umeclidinium [place] [Incruse Ellipta] 62.5 mcg IH DAILY 11/03/16 [History] Aspirin [Lo-Dose Aspirin EC] 81 mg PO DAILY #30 tablet. 11/05/16 [Rx] Oxygen 3 l .ROUTE AD 11/20/16 [History] Azithromycin [Zithromax] 250 mg PO DAILY #7 tablet 11/28/16 [Rx] Ciprofloxacin OPTH Soln [Ciloxan OPTH Soln] 2 drop LEFT EYE Q4HR #1 bottle 11/28 [Rx] Ciprofloxacin/Dex *EAR* Susp [Ciprodex *EAR* Susp] 4 drop BOTH EARS BID #2 bottle 11/28/16 [Rx] Furosemide [Lasix] 10 mg PO DAILY #14 tablet 11/28/16 [Rx] GuaiFENesin/Dextromethorphan [Robitussin/Dm] 10 ml PO Q6HR 14 Days 11/28/16 [Rx] Omeprazole [PriLOSEC] 20 mg PO DAILY@0630 #14 capsule. 11/28/16 [Rx] PredniSONE 20 mg PO DAILY #10 tablet 11/28/16 [Rx] Tiotropium [Spiriva] 18 mcg IH 0700 #30 capsule 11/28/16 [Rx] Allergies/Adverse Reactions: Allergies morphine Allergy (Verified 09/17/16 08:27) Difficulty Breathing sulfamethoxazole [From Bactrim] Allergy (Verified 10/12/16 20:21) Rash trimethoprim [From Bactrim] Allergy (Verified 10/12/16 20:21) Rash codeine Adverse Reaction (Verified 03/16/16 17:11) Nausea Certification: Further, I certify that my clinical findings support that this patient is homebound (i.e. absences from home require considerable and taxing effort and are for medical reasons or church services or infrequently or short duration when for other reasons) because: Homebound Reason: Patient requires assistance of a person or device to safely leave home Attestation: My signature below is to certify that this patient is under my care and that I, or nurse practitioner, or a physician's school office assistant working with me, has a face-to -face encounter with this patient.
== END 2016-11-28 12:31 | disposition home health service (06) | DRG 871 ==
LOC: 3BNU 04:54 → EMEROO 04:54 → 3BNU 08:50 → SUATTDRO 09:03
PROVIDERS: ADMIT Internal Medicine; ATTEND Internal Medicine

== ENCOUNTER 2016-12-04 05:11 | Inpatient (IN) ==
[2016-12-04] MEDS ORDERED: Ipratropium/Albuterol Neb 3 ML IH ONE (05:18)
[2016-12-04] MEDS ORDERED: methylPREDNISolone 125 MG/2 ML VIAL IVP ONE (05:19)
--- NOTE | 2016-12-04 05:48 | Emergency Department Note ---
Disposition Clinical Impression: Acute exacerbation of chronic obstructive airways disease Disposition: Admitted As Inpatient Condition: Good Time of Disposition: 07:26 SOB HPI - General Chief Complaint: ED Shortness of Breath/Dyspnea Stated Complaint: SHUBHAM Time Seen by Provider: 12/04/16 05:18 Source: patient, EMS Mode of arrival: ambulatory Limitations: no limitations Nursing Notes Reviewed: Yes Vital Signs Reviewed: Yes - History of Present Illness 61-year-old male past medical history DM, HTN, COPD on 3 liters on home oxygenation presents to ED with difficulty breathing. This is been ongoing for the past several months requiring several hospitalizations on 11/20 and 11/03. He is currently on steroid taper and antibiotics. Reports over the past 2 days he has increased difficulty in breathing, increased cough however is nonproductive , and increase use in duonebs and albuterol. Denies any recent fever. Denies any chest pain, nausea, or vomiting. Denies any recent travel. Feels similar to his prior exacerbations. Reports using a duoneb prior to coming here but remains tight and wheezing. Pt Subjective Complaint: shortness of breath Onset (ago): day(s) Improves with: bronchodilators Worsens with: exertion, movement, coughing Known history of: COPD Associated symptoms: Reports: cough, wheezing, orthopnea. Denies: fever, sputum production, polyuria, nausea/vomiting Cough present: Yes Cough Description: Non-Productive, Hoarse Cough Frequency: Intermittent - Related Data Home Medications Medication Instructions Recorded Confirmed Albuterol Sulfate [Albuterol 2 puff IH Q4HR PRN 03/16/16 12/04/16 Inhaler] Amlodipine Besylate 10 mg PO DAILY 03/16/16 12/04/16 Azelastine 0.1% Nasal [place] 1 spray NS BID 03/16/16 12/04/16 [Astelin] Budesonide/Formoterol 160/4.5 2 puff IH BIDR 03/16/16 12/04/16 [Symbicort 160/4.5] Cetirizine HCl [Zyrtec] 10 mg PO DAILY 03/16/16 12/04/16 ClonazePAM [Klonopin] 1 mg PO BID PRN 03/16/16 12/04/16 Docusate [Colace] 300 mg PO BID PRN 03/16/16 12/04/16 Ergocalciferol (VITAMIN D2) 400 unit PO DAILY 03/16/16 12/04/16 [Vitamin D] Esomeprazole Magnesium [Nexium] 40 mg PO BID 03/16/16 12/04/16 Fluticasone Propionate Nasal 100 mcg NS DAILY 03/16/16 12/04/16 [Flonase] Ketoconazole Shampoo [Nizoral 1 appl TP 3XW 03/16/16 12/04/16 Shampoo] Polyethylene Glycol 3350 [MiraLAX] 17 gm PO DAILY 03/16/16 12/04/16 Psyllium Seed (with Sugar) 1 each PO BID 03/16/16 12/04/16 [Metamucil Powder] Roflumilast [Daliresp] 500 mcg PO DAILY 03/16/16 12/04/16 Sodium Chloride [[place] Saline] 1 spray NS BID PRN 03/16/16 12/04/16 Albuterol Neb [Proventil Neb] 2.5 mg IH Q2-4H PRN 09/21/16 12/04/16 Metoclopramide [Reglan] 10 mg PO ACHS 11/03/16 12/04/16 Umeclidinium [place] [Incruse 62.5 mcg IH DAILY 11/03/16 12/04/16 Ellipta] Oxygen 3 l .ROUTE AD 11/20/16 12/04/16 Previous Rx's Medication Instructions Recorded Metoprolol [Lopressor] 12.5 mg PO BID #30 tablet 09/30/16 Montelukast [Singulair] 10 mg PO HS #30 tablet 09/30/16 Aspirin [Lo-Dose Aspirin EC] 81 mg PO DAILY #30 tablet. 11/05/16 Ciprofloxacin OPTH Soln [Ciloxan 2 drop LEFT EYE Q4HR #1 bottle 11/28/16 OPTH Soln] Ciprofloxacin/Dex *EAR* Susp 4 drop BOTH EARS BID #2 bottle 11/28/16 [Ciprodex *EAR* Susp] Furosemide [Lasix] 10 mg PO DAILY #14 tablet 11/28/16 GuaiFENesin/Dextromethorphan 10 ml PO Q6HR 14 Days 11/28/16 [Robitussin/Dm] PredniSONE 20 mg PO DAILY #10 tablet 11/28/16 Allergies Allergy/AdvReac Type Severity Reaction Status Date / Time morphine Allergy Difficulty Verified 09/17/16 08:27 Breathing sulfamethoxazole Allergy Hives Verified 12/04/16 09:24 [From Bactrim] trimethoprim [From Bactrim] Allergy Hives Verified 12/04/16 09:24 codeine AdvReac Nausea Verified 03/16/16 17:11 All systems ED: reviewed and negative except as stated. Constitutional: Denies: fever, chills Cardiovascular: Denies: chest pain Respiratory: Reports: cough, dyspnea, wheezes Gastrointestinal: Denies: abdominal pain, nausea, vomiting Genitourinary: Denies: urgency, dysuria Musculoskeletal: Denies: back pain Past Medical History - Past Medical History Attestation: Yes The following information was validated with the patient. Source: patient Medical history: Reports: COPD, diabetes, GERD, hypertension Surgical history: Reports: herniorrhaphy, other Psychiatric history: Reports: anxiety, depression - Social History Smoking Status: Former smoker Smokeless Tobacco Status: No Alcohol use: Reports: rarely Drug use: Reports: none Physical Exam - General Limitations: no limitations General appearance: alert, anxious, obese - Head Head exam: atraumatic, normocephalic, normal inspection - Eye Eye exam: Present: normal appearance, PERRL, EOMI - ENT ENT exam: normal exam, normal oropharynx, mucous membranes dry - Neck Neck exam: Present: normal inspection, full ROM, trachea midline - Chest Chest inspection: Present: normal inspection, symmetric chest wall rise. Absent : tenderness - Respiratory Respiratory exam: Present: respiratory distress, wheezes, accessory muscle use, other (increase work in breathing) - Cardiovascular Cardiovascular exam: Present: normal rhythm, tachycardia, normal heart sounds - Abdominal Exam Abdominal exam: Present: soft (relatively soft but unable to perform a well exam due to body habitus), Non-Tender, normal bowel sounds. Absent: tenderness , distention, guarding, rebound, rigidity - Extremities Exam Extremities exam: Present: normal inspection, full ROM, normal capillary refill. Absent: tenderness, pedal edema, calf tenderness - Neurological Exam Neurological exam: Present: alert, oriented X3 - Psychiatric Psychiatric exam: Present: normal affect, normal mood - Skin Skin exam: Present: warm, dry, intact, normal color Course Course Narrative: 61-year-old male with a history of COPD on 3 L presents to the ED for difficulty in breathing. This has been ongoing for the past few days. He is currently on outpatient therapy for COPD exacerbation with antibiotics and steroids. Has been on steroids for the past 6 days.He presents afebrile with tachycardia and O2 of 95-96% on 3L. Lungs are diffusely wheezing and tight aeration. This is likely a COPD exacerbation will not initiate SIRS alert. His CXR does not reveal pneumonia or pulmonary infectious process. He will likely be admitted for failed outpatient treatment. - Reevaluation(s) Reevaluation #1: He does not have increased work in breathing at this time however remains hypoxic 94% on 3L. Lungs remain diffusely wheezing. Plan to admit to hospitalist for failed outpatient treatment of COPD exacerbation. Patient is in agreement with plan. Time: 07:23 - Consultations Consultation #1: Spoke with on-call hospitalist breanna Smith to admit for COPD exacerbation failed outpatient. No further orders at this time Time: 07:23 Vital Signs Temperature 97.0 F L 12/04/16 05:12 Pulse Rate 107 12/04/16 05:12 Respiratory Rate 22 12/04/16 05:12 Blood Pressure 142/81 12/04/16 05:12 O2 Sat by Pulse Oximetry 96 12/04/16 05:12 Temperature 97.9 F 12/06/16 10:49 Pulse Rate 84 12/06/16 10:49 Respiratory Rate 16 12/06/16 11:05 Blood Pressure 131/76 12/06/16 10:49 O2 Sat by Pulse Oximetry 95 12/06/16 11:05 Oxygen Delivery Oxygen Delivery Nasal Cannula Shortness of Breath/Dyspnea - Medical Records Medical records reviewed: Yes I reviewed the patient's medical records. - Lab Data Lab results reviewed: Yes I reviewed the patient's lab results. Result diagrams: 12/05/16 03:58 12/05/16 03:58 Lab Results 12/04/16 12/04/16 Range/Units 06:06 06:06 WBC 14.0 H (4.3-11.1) K/mcL RBC 4.40 (4.19-5.50) M/mcL Hgb 11.9 L (12.9-16.9) g/dL Hct 37.2 L (37.5-50.1) % MCV 84.5 (83.0-100.0) fL MCH 27.0 L (28.0-33.3) pg MCHC 32.0 (31.6-35.5) g/dL RDW 16.9 H (11.5-14.5) % Plt Count 230 (140-400) K/mcL MPV 8.8 L (9.4-12.4) fL Immature Gran % 1.5 (0-4) % Seg Neutrophils % 79.1 % Lymphocytes % 8.8 % Monocytes % 9.0 % Eosinophils % 1.4 % Basophils % 0.2 % Neutrophils # 11.0 H (1.6-8.9) K/mcL Lymphocytes # 1.2 (0.6-4.6) K/mcL Monocytes # 1.3 (0.0-1.3) K/mcL Eosinophils # 0.2 (0.0-0.6) K/mcL Basophils # 0.0 (0.0-0.2) K/mcL Sodium 140 (136-145) mEq/L Potassium 4.0 (3.5-4.5) mEq/L Chloride 106 (98-109) mEq/L Carbon Dioxide 23 (19-29) mEq/L BUN 20 (8-26) mg/dL Creatinine 0.84 (0.72-1.25) mg/dL Est GFR ( Amer) > 60 (> 60) Est GFR (Non-Af Amer) > 60 (> 60) BUN/Creatinine Ratio 24 (6-26) Glucose 93 (70-99) mg/dL Calculated Osmolality 292 (280-300) Calcium 8.9 (8.6-10.8) mg/dL - Radiology Data Radiology results reviewed: Yes I reviewed the patient's radiology results. Chest X-Ray 12/04/16 05:19 IMPRESSION: No acute cardiopulmonary process. D/ / Pedro Mckee MD / Pedro Mckee MD Interpreting Provider: Pedro Mckee MD - EKG Data EKG attestation: Yes I reviewed and interpreted this EKG. EKG results narrative: EKG performed 553 normal sinus rhythm 99 beats per minute normal axis Q waves in the inferior leads, there are no ST elevations or depressions, good R-R wave progression, intervals are within normal limits. PA interval 170 QRS 85 QT QTC 312 368. Compare old EKG performed 11/20/2016 shows sinus tachycardia 101 bpm with consistent finding of Q wave. No acute ischemic changes. Attestation Statement - Attestation Attestation: For this encounter, I have reviewed the resident, AMPOULE FILLER, or PA documentation, treatment plan, and medical decision making; and I have had face to face time with this patient. 61-year-old male presents with respiratory distress and difficulty breathing increasing over the past few days. Patient states that this is similar to his previous COPD exacerbations. Patient has been admitted multiple times in the past couple months for similar symptoms. On physical exam the patient has wheezing in the bilateral posterior lung banks. The patient improved after administration of steroids and DuoNeb to the emergency department. Patient is comfortable with the plan for admission to the hospital for continuation of care.
[2016-12-04 06:12] LABS: Basophils % 0.2 %; Eosinophils # 0.2 K/mcL (0.0-0.6); Eosinophils % 1.4 %; Hematocrit 37.2 % (37.5-50.1); Hemoglobin 11.9 g/dL (12.9-16.9); Immature Granulocytes % 1.5 % (0-4); Lymphocytes # 1.2 K/mcL (0.6-4.6); Lymphocytes % 8.8 %; Mean Corpuscular Volume 84.5 fL (83.0-100.0); Mean Platelet Volume 8.8 fL (9.4-12.4); Monocytes # 1.3 K/mcL (0.0-1.3); Platelet Count 230 K/mcL (140-400); Red Cell Distribution Width 16.9 % (11.5-14.5); Segmented Neutrophils % 79.1 %
[2016-12-04 06:24] LABS: BUN/Creatinine Ratio 24 (6-26); Blood Urea Nitrogen 20 mg/dL (8-26); Calcium 8.9 mg/dL (8.6-10.8); Carbon Dioxide 23 mEq/L (19-29); Chloride 106 mEq/L (98-109); Glucose 93 mg/dL (70-99); Osmolality,Calculated 292 (280-300); Sodium 140 mEq/L (136-145); eGFR For African Americans > 60 (> 60); eGFR For Non-African Americans > 60 (> 60)
[2016-12-04] MEDS ORDERED: traMADol 50 MG TABLET PO ONE (09:11)
[2016-12-04] MEDS ORDERED: Ondansetron 4 MG/2 ML VIAL IVP PRN (11:28)
[2016-12-04] MEDS: Ciprofloxacin OPTH Soln 2.5 ML BOTTLE LEFT EYE SCH ×4 (12:38→23:52)
[2016-12-04] MEDS: Loratadine 10 MG TABLET PO SCH (12:38)
[2016-12-04] MEDS: Aspirin Enteric Coated 81 MG Tablet PO SCH (12:38)
[2016-12-04] MEDS: amLODIPine 5 MG TABLET PO SCH (12:38)
[2016-12-04] MEDS: (Roflumilast [Daliresp] 500 MCG) PO SCH (12:39)
[2016-12-04] MEDS: Ipratropium/Albuterol Neb 3 ML IH SCH ×4 (15:15→22:47)
[2016-12-04] MEDS ORDERED: methylPREDNISolone 125 MG/2 ML VIAL IVP SCH (16:00)
--- NOTE | 2016-12-04 16:06 | Internal Med History&Physical ---
Date of Encounter: 12/04/16 Time of Encounter: 13:00 Assessment and Plan (1) Acute diastolic heart failure Current visit: Yes Status: Acute he does not have a history of CHF however his symptoms are consistent with heart failure. Including paroxysmal nocturnal dyspnea lower extremity swelling and orthopnea. I will check a stat BNP. Echocardiogram from July 2016 reveals normal LV ejection fraction. Per chart review a recent stress test showed a reversible defect. I will consult cardiology regarding the positive stress test and CHF. We will trend troponin to rule out ACS. Start IV Lasix. There is also concern for right ventricular failure. On the previous echocardiogram which was a poor quality study RV pressures could not be assessed. I will repeat echocardiogram with contrast. (2) Acute and chronic respiratory failure with hypoxia Current visit: No Status: Acute Oxygen by nasal cannula pain. Maintain oxygen saturation greater than 92%. (3) DVT prophylaxis Current visit: No Status: Acute Lovenox for DVT prophylaxis. He has a moderate to high risk for DVT due to immobility CHF and lower extremity swelling. (4) COPD (chronic obstructive pulmonary disease) Current visit: No Status: Chronic Inhaled DuoNeb. Continue with prednisone. He was recently treated for COPD exacerbation for 8 days in the hospital. His prednisone was being tapered. His symptoms are not consistent with COPD and more consistent with CHF. I suggest a slower prednisone taper. Qualifiers: COPD type: unspecified COPD Qualified Code(s): J44.9 - Chronic obstructive pulmonary disease, unspecified (5) HTN (hypertension) Current visit: No Status: Chronic Continue home antihypertensive medication regimen. Qualifiers: Hypertension type: essential hypertension Qualified Code(s): I10 - Essential (primary) hypertension (6) Morbid obesity with BMI of 40.0-44.9, adult Current visit: No Status: Chronic Outpatient weight loss regimen. (7) Obstructive sleep apnea Current visit: No Status: Chronic Nighttime BiPAP Internal Medicine - H&P: HPI Chief complaint: Shortness of breath Admitted From: Emergency Dept Plans for Post Hospital Care: Home History of present illness: Mr. Herring is a 61 year old male with past medical history significant for COPD , CHF and chronic hypoxic respiratory failure who presented to the hospital for severe sudden onset shortness of breath which started while lying in bed, improved with sitting up and using supplemental oxygen associated with cough productive of a small amount of white phlegm, and chest tenderness which is cough related. A 10 point review of systems was pertinent for presence of orthopnea, chronic back pain, lower extremity swelling, cough or shortness of breath and chest tenderness as above otherwise negative Family history was reviewed and found to be noncontributory to this case Social history patient has a remote history of smoking quit 9 years ago. Past Med Surg Social Fam HX - Past Medical History Medical history: COPD, diabetes, GERD, hypertension Psychiatric history: anxiety, depression - Past Surgical History Surgical History: herniorrhaphy, other - Social History Smoking Status: Former smoker Smokeless Tobacco Status: No Alcohol use: rarely Drug use: none - Family History Father Family Member Ethnicity: Non- Living Status: Hx Family Cardiac Disorders: No Hx Family Respiratory Disorders: No Hx Family Cancer: Yes (pancreatic) Hx Family GI Disorders: No Hx Family Endocrine Disorder: Yes Hx Family Neuromuscular Disorders: No Hx Family Neurologic Disorders: No Hx Family HEENT Disorders: No Hx Family Autoimmune Disorders: No Mother Adopted: No Family Member Ethnicity: Non- Living Status: Hx Family Cardiac Disorders: Yes Hx Family Respiratory Disorders: Yes Hx Family Cancer: Yes (lung cancer) Hx Family GI Disorders: No Hx Family Endocrine Disorder: No Hx Family Neuromuscular Disorders: No Hx Family Neurologic Disorders: No Hx Family HEENT Disorders: No Hx Family Autoimmune Disorders: No Sister Living Status: Hx Family Cardiac Disorders: Yes Hx Family Respiratory Disorders: Yes Hx Family Cancer: No Hx Family GI Disorders: No Hx Family Endocrine Disorder: No Hx Family Neuromuscular Disorders: No Hx Family Neurologic Disorders: No Hx Family HEENT Disorders: No Hx Family Autoimmune Disorders: No Internal Medicine - H&P: Meds Albuterol Sulfate [Albuterol Inhaler] 2 puff IH Q4HR PRN 03/16/16 [History] Amlodipine Besylate 10 mg PO DAILY 03/16/16 [History] Azelastine 0.1% Nasal [place] [Astelin] 1 spray NS BID 03/16/16 [History] Budesonide/Formoterol 160/4.5 [Symbicort 160/4.5] 2 puff IH BIDR 03/16/16 [ History] Cetirizine HCl [Zyrtec] 10 mg PO DAILY 03/16/16 [History] ClonazePAM [Klonopin] 1 mg PO BID PRN 03/16/16 [History] Docusate [Colace] 300 mg PO BID PRN 03/16/16 [History] Ergocalciferol (VITAMIN D2) [Vitamin D] 400 unit PO DAILY 03/16/16 [History] Esomeprazole Magnesium [Nexium] 40 mg PO BID 03/16/16 [History] Fluticasone Propionate Nasal [Flonase] 100 mcg NS DAILY 03/16/16 [History] Ketoconazole Shampoo [Nizoral Shampoo] 1 appl TP 3XW 03/16/16 [History] Polyethylene Glycol 3350 [MiraLAX] 17 gm PO DAILY 03/16/16 [History] Psyllium Seed (with Sugar) [Metamucil Powder] 1 each PO BID 03/16/16 [History] Roflumilast [Daliresp] 500 mcg PO DAILY 03/16/16 [History] Sodium Chloride [[place] Saline] 1 spray NS BID PRN 03/16/16 [History] Albuterol Neb [Proventil Neb] 2.5 mg IH Q2-4H PRN 09/21/16 [History] Metoprolol [Lopressor] 12.5 mg PO BID #30 tablet 09/30/16 [Rx] Montelukast [Singulair] 10 mg PO HS #30 tablet 09/30/16 [Rx] Metoclopramide [Reglan] 10 mg PO ACHS 11/03/16 [History] Umeclidinium [place] [Incruse Ellipta] 62.5 mcg IH DAILY 11/03/16 [History] Aspirin [Lo-Dose Aspirin EC] 81 mg PO DAILY #30 tablet. 11/05/16 [Rx] Oxygen 3 l .ROUTE AD 11/20/16 [History] Ciprofloxacin OPTH Soln [Ciloxan OPTH Soln] 2 drop LEFT EYE Q4HR #1 bottle 11/28 [Rx] Ciprofloxacin/Dex *EAR* Susp [Ciprodex *EAR* Susp] 4 drop BOTH EARS BID #2 bottle 11/28/16 [Rx] Furosemide [Lasix] 10 mg PO DAILY #14 tablet 11/28/16 [Rx] GuaiFENesin/Dextromethorphan [Robitussin/Dm] 10 ml PO Q6HR 14 Days 11/28/16 [Rx] PredniSONE 20 mg PO DAILY #10 tablet 11/28/16 [Rx] Allergies morphine Allergy (Verified 09/17/16 08:27) Difficulty Breathing sulfamethoxazole [From Bactrim] Allergy (Verified 12/04/16 09:24) Hives trimethoprim [From Bactrim] Allergy (Verified 12/04/16 09:24) Hives codeine Adverse Reaction (Verified 03/16/16 17:11) Nausea All Systems PM: A 10-system review of systems was performed and is negative for pertinent findings except as documented above in the HPI. - Constitutional Vitals: Temp Pulse Resp BP Pulse Ox 98.1 F 101 20 126/75 96 12/04/16 15:36 12/04/16 15:36 12/04/16 15:36 12/04/16 15:36 12/04/16 15:36 General appearance: Present: A&O X 3 - Eye Eye exam: Present: PERRL, conjuntiva pink, sclera anicteric Pupils: Present: PERRL - Neck Neck exam general surgery: Present: supple, trachea midline. Absent: lymphadenopathy - Respiratory Respiratory exam: Present: decreased breath sounds, CTAB. Absent: accessory muscle use, rales, rhonchi, wheezes - Cardiovascular Cardiovascular exam: Present: RRR, +S1, +S2. Absent: diastolic murmur, gallop, rubs, systolic murmur - GI/Abdominal GI/Abdominal exam: Present: normal bowel sounds, soft, no peritoneal signs. Absent: distended, tenderness - Extremities Exam Extremities exam: Present: pedal edema, warm, radial pulses palpable and symetrical. Absent: calf tenderness, cyanotic - Neurological Exam Neurological exam: Present: CN II-XII intact, oriented X3, no focal deficits. Absent: pronater drift, facial droop, speech deficit - Skin Skin exam: Present: dry, intact Internal Med - H&P Results - Labs CBC & Chem 7: 12/04/16 06:06 12/04/16 06:06 - EKG Data -: EKG Interpreted by Myself EKG shows normal: sinus rhythm, axis, intervals, ST-T waves Rate: normal
[2016-12-04] MEDS: methylPREDNISolone 125 MG/2 ML VIAL IVP SCH (17:26)
[2016-12-04] MEDS: Furosemide 40 MG/4 ML VIAL IVP SCH ×2 (17:26→17:27)
[2016-12-04] MEDS: Acetaminophen 325 MG TABLET PO PRN (17:52)
[2016-12-04] MEDS: Budesonide/Formoterol 160/4.5 MDI IH SCH (19:35)
[2016-12-04] MEDS: clonazePAM 0.5 MG TABLET PO PRN (20:15)
[2016-12-04] MEDS: Azelastine 0.1% Nasal Spray 30 ML BOTTLE NS SCH (20:17)
[2016-12-04] MEDS: Ciprofloxacin/Dex *EAR* Susp 7.5 ML BOTTLE BOTH EARS SCH (20:18)
[2016-12-04] MEDS: Psyllium 1 PACKET POWD.PACK PO SCH (21:25)
[2016-12-05] MEDS: Ciprofloxacin OPTH Soln 2.5 ML BOTTLE LEFT EYE SCH ×6 (04:08→23:33)
[2016-12-05] MEDS: methylPREDNISolone 125 MG/2 ML VIAL IVP SCH ×2 (04:14→17:26)
[2016-12-05] MEDS: Ipratropium/Albuterol Neb 3 ML IH SCH ×6 (04:20→23:10)
[2016-12-05 04:24] LABS: Basophils % 0.1 %; Hematocrit 38.2 % (37.5-50.1); Hemoglobin 12.1 g/dL (12.9-16.9); Immature Granulocytes % 1.3 % (0-4); Lymphocytes # 0.7 K/mcL (0.6-4.6); Lymphocytes % 8.1 %; Mean Corpuscular HGB Conc 31.7 g/dL (31.6-35.5); Mean Corpuscular Hemoglobin 26.5 pg (28.0-33.3); Mean Corpuscular Volume 83.8 fL (83.0-100.0); Mean Platelet Volume 8.8 fL (9.4-12.4); Monocytes # 0.7 K/mcL (0.0-1.3); Monocytes % 7.2 %; Neutrophils # 7.6 K/mcL (1.6-8.9); Platelet Count 249 K/mcL (140-400); Red Blood Count 4.56 M/mcL (4.19-5.50); Red Cell Distribution Width 16.7 % (11.5-14.5); Segmented Neutrophils % 83.3 %
[2016-12-05 04:48] LABS: BUN/Creatinine Ratio 24 (6-26); Blood Urea Nitrogen 24 mg/dL (8-26); Calcium 9.5 mg/dL (8.6-10.8); Carbon Dioxide 24 mEq/L (19-29); Chloride 102 mEq/L (98-109); Glucose 169 mg/dL (70-99); Osmolality,Calculated 292 (280-300); Potassium 4.4 mEq/L (3.5-4.5); Sodium 137 mEq/L (136-145); eGFR For African Americans > 60 (> 60); eGFR For Non-African Americans > 60 (> 60)
[2016-12-05] MEDS: Budesonide/Formoterol 160/4.5 MDI IH SCH ×2 (07:29→21:05)
[2016-12-05] MEDS: Acetylcysteine 10% 2 ML INHSOL IH SCH ×3 (07:29→21:05)
[2016-12-05] MEDS ORDERED: Perflutren Lipid Microsphere 1.3 ML in 0.9 % Sodium Chloride 8.7 ML IVP ONE (07:37)
[2016-12-05] MEDS ORDERED: Perflutren Lipid Microsphere 2 ML VIAL ONE (07:43)
[2016-12-05] MEDS ORDERED: Furosemide 20 MG TABLET PO SCH (09:00)
[2016-12-05] MEDS: Psyllium 1 PACKET POWD.PACK PO SCH ×2 (09:18→20:29)
[2016-12-05] MEDS: Furosemide 40 MG/4 ML VIAL IVP SCH ×2 (09:20→17:27)
[2016-12-05] MEDS: Aspirin Enteric Coated 81 MG Tablet PO SCH (09:20)
[2016-12-05] MEDS: Loratadine 10 MG TABLET PO SCH (09:21)
[2016-12-05] MEDS: amLODIPine 5 MG TABLET PO SCH (09:21)
[2016-12-05] MEDS: Ciprofloxacin/Dex *EAR* Susp 7.5 ML BOTTLE BOTH EARS SCH ×2 (09:24→20:31)
[2016-12-05] MEDS: Azelastine 0.1% Nasal Spray 30 ML BOTTLE NS SCH ×2 (09:25→20:30)
[2016-12-05] MEDS: (Umeclidinium Bromide [Incruse Ellipta] 62.5 MCG) IH SCH (09:26)
[2016-12-05] MEDS: Saline Nasal Spray 44 ML BOTTLE NS PRN (09:26)
[2016-12-05] MEDS: Fluticasone Propionate Nasal 50 MCG/SPRAY BOTTLE NS SCH (09:26)
[2016-12-05] MEDS: (Roflumilast [Daliresp] 500 MCG) PO SCH (09:27)
--- NOTE | 2016-12-05 10:08 | ECHO - Doppler Report ---
Echo with Imaging Enhancement Agent Name: Don Herring Date of Study: 12/05/2016 Date: 1955 Ht: 70.0 in Medical Record#: [id number] Age: 61 Wt: 303.0 lb Gender: Male BSA: 2.49 Order #: [id number] Location: [facility] Room #: 3B53 Reading Physician: Morales Reyes MD, [facility] Process Trainer: Linda Thakkar Ordering Physician: Donal Casas MD Primary Physician: Bryce Jones DO Indications: Congestive heart failure Impressions: LVEF 55-60%. Mild concentric left ventricular hypertrophy. Mildly dilated left atrium. No evidence of pulmonary hypertension. No significant valvular dysfunction. Left Ventricular Wall Motion: Rest Echo Findings All wall segments showed normal motion. Findings: Aorta * Normally sized aortic root. Mitral Valve * No mitral regurgitation. * No mitral stenosis. * Normal mitral valve structure and function. Aortic Valve * No aortic regurgitation. * Aortic valve not well visualized. * No aortic stenosis. Left Ventricle * Mild concentric left ventricular hypertrophy. * LVEF 55-60%. * Indeterminate diastolic function. ECG Findings * Normal sinus rhythm. Study Quality * Technically sub-optimal due to body habitus. Left Atrium * Mildly dilated left atrium. Tricuspid Valve * No tricuspid stenosis. * Trace tricuspid regurgitation. * No evidence of pulmonary hypertension. * Estimated RVSP is 29 mmHg. * Estimated RA pressure is 3-5 mmHg. Pulmonic Valve * Pulmonic valve not well visualized. * No pulmonic regurgitation. * No pulmonic stenosis. Right Atrium * Right atrium is not well visualized. IVC * Normal IVC dimensions and inspiratory collapse. History Hypertension Diabetes Years 30 Packs 3 Family History of CAD 09/25/2016 a Previous Echo was performed. Contrast: Definity 1.3 ml in 8.7 ml of saline 2 ml. Measurements: BP: 121/ 74 2D Normal Values RVIDd: 3.40 cm <2.7 cm IVSd: 1.30 cm 0.6 - 1.0 cm LVIDd: 4.50 cm 3.7 - 5.6 cm LVPWd: 1.40 cm 0.6 - 1.1 cm LVIDs: 3.00 cm 1.5 - 3.6 cm AO: 2.50 cm < 4.0 cm LA: 4.30 cm 2.0 - 4.0cm %FS: 33.30 cm >25 % LA volume: 53 Mitral Valve Peak E:.88 m/sec Peak A:.83 m/sec E/A Ratio:1.1 Peak E' Lat Jed:11.6 cm/s Peak E' Med Jed:8.87 cm/s E/E' Lat Ratio:7.6 E/E' Med Ratio:10 Tricuspid Valve TV Regurg Peak Grad: 29.00mmHg TV Regurg Peak Jed: 2.69m/sec Updated by Morales Reyes MD, [facility] on 12/05/2016 10:01:36 AM electronically signed on 12/05/2016 10:05:05 AM with status of Final Wall Motion Carpenter: 1=Normal, 2=Hypokinesis, 3=Akinesis, 4=Dyskinesis, 5=Aneurysmal, 6=Hyperkinetic, X=Not Visualized (Blank)=Missing
[2016-12-05] MEDS ORDERED: D5% in Water 1,000 ML IV PRN (14:11)
[2016-12-05] MEDS ORDERED: *HR* Dextrose 50 % in Water (Syg) 50 ML SYRINGE IVP PRN (14:11)
[2016-12-05] MEDS ORDERED: Dextrose Gel 15 GM PO PRN ×2 (14:11)
--- NOTE | 2016-12-05 14:11 | Internal Med Progress Note ---
<Aiden Marsh Franky - Last Filed: 12/05/16 18:23> Date of Encounter: 12/05/16 - Constitutional Vitals: Temp Pulse Resp BP Pulse Ox 97.5 F L 84 20 146/74 96 12/05/16 14:48 12/05/16 14:48 12/05/16 15:47 12/05/16 14:48 12/05/16 15:47 Internal Medicine: Result - Labs CBC & Chem 7: 12/05/16 03:58 12/05/16 03:58 Labs: Short CBC 12/05/16 Range/Units 03:58 WBC 9.2 (4.3-11.1) K/mcL Hgb 12.1 L (12.9-16.9) g/dL Hct 38.2 (37.5-50.1) % Plt Count 249 (140-400) K/mcL Neutrophils # 7.6 (1.6-8.9) K/mcL BMP 12/05/16 03:58 Sodium 137 Potassium 4.4 Chloride 102 Carbon Dioxide 24 BUN 24 Creatinine 0.99 Glucose 169 H Calcium 9.5 Cardiac Enzymes 12/05/16 Range/Units 17:42 Troponin I 0.00 (0-0.03) ng/mL Consult Discharge Plan - Plan Referrals: Bryce Jones DO [Primary Care Provider] - - Attending Attestation I examined this patient and my medical decision-making was reviewed with the HOT BRAIDER/PA/Advanced Practice Nurse/Resident Physician. I agree with the documented findings, disposition and treatment plan as described except to the extent set forth below. Agree with Dr. Mckeon, artur emonitoring, bipap at night , copd management, continue steroids. D/W patient. <Martha Mckeon - Last Filed: 12/06/16 07:38> Date of Encounter: 12/05/16 Time of Encounter: 13:40 - Assessment and plan (1) Acute diastolic heart failure Current Visit: Yes Status: Acute Assessment and plan: ECHO performed 09/25/16 with LVEF 60%, mild left ventricular diastolic dysfunction. Repeat ECHO 12/05/16 demonstrates LVEF 55-60%, no pulmonary HTN, no significant valvular dysfunction. CXR 12/04/16 demonstrates normal cardiac silhouette without pleural effusion or consolidation. BNP less than 10. Recent stress test 11/04/16 demonstrated a partially reversible inferior perfusion defect. However, this may be due to artifact from obese habitus. Despite normal EF and CXR, patient's dyspnea, orthopnea, paroxsyal nocturnal dyspnea, acute onset lower extremity edema do suggest heart failure. Fluid balance -870mL today. Plan: Continue IV lasix Strict I&O Fluid restriction 1500mL/day (2) Acute and chronic respiratory failure with hypoxia Current Visit: Yes Status: Acute Assessment and plan: Patient was afebrile with HR 109, RR 24, 96% on 3 upon admission. He required BIPAP at night to maintain O2 saturation. Continue O2 supplementation Methylpred IV Laxix IV Duonebs, albuterol nebs Acetylcysteine 10% Symbicort Mucinex Singulair, Claritin, flonase, Astelin (3) COPD (chronic obstructive pulmonary disease) Current Visit: No Status: Chronic Assessment and plan: See plan as above (4) Obstructive sleep apnea Current Visit: No Status: Chronic Assessment and plan: Continue BIPAP (5) HTN (hypertension) Current Visit: No Status: Chronic Assessment and plan: Continue home meds Qualifiers: Hypertension type: essential hypertension Qualified Code(s): I10 - Essential (primary) hypertension (6) Morbid obesity with BMI of 40.0-44.9, adult Current Visit: No Status: Chronic (7) DVT prophylaxis Current Visit: No Status: Acute - Time Spent With Patient 25 - 35 minutes (30 minutes including time with patient and coordinating care) - Subjective Interval history: Patient states that prior to admission, he awoke from sleep with severe dyspnea. He "passed out on his bed", called EMS, and was found "passed out on his couch" when EMS arrived. Patient states that he is improved from yesterday. However, he continues to have orthopnea. He was unable to sleep in hospital bed and had to sit up in chair to sleep last night. His wheezing is present at this time, despite a nebulizer 1 hour ago. Admits to cough productive of white sputum and pain with deep inspiration. However, he denies chest pain and denies hemoptysis. He uses 2-3L home at times depending on activity level. He admits to abdominal pain from using his abdominal muscles to cough. Patient was recently hospitalized 11/20/16 for pneumonia and discharged 2/19/17 following treatment with ceftriaxone, azithromycin, steroid taper, duonebs. - Constitutional Vitals: Temp Pulse Resp BP Pulse Ox 97.1 F L 81 18 132/71 97 12/05/16 11:18 12/05/16 11:18 12/05/16 11:18 12/05/16 11:18 12/05/16 11:18 General appearance: Present: A&O X 3, morbidly obese, pleasant, no acute distress, answers questions appropriately - Head Head exam: Present: atraumatic, normocephalic - Eye Eye exam: Present: PERRL, conjuntiva pink, sclera anicteric Pupils: Present: PERRL - Neck Neck exam general surgery: Present: supple, trachea midline. Absent: lymphadenopathy - Respiratory Respiratory exam: Present: wheezes (diffuse wheezing all lung banks). Absent: accessory muscle use, rales, rhonchi - Cardiovascular Cardiovascular exam: Present: distant heart sounds, RRR, +S1, +S2. Absent: diastolic murmur, gallop, rubs, systolic murmur - GI/Abdominal GI/Abdominal exam: Present: normal bowel sounds, soft, tenderness (patient states tenderness is due to using abdominal muscles to cough), no peritoneal signs. Absent: distended Additional comments: protuberant abdomen. unable to appreciate internal organs on exam. - Extremities Exam Extremities exam: Present: pedal edema (1+ bilateral pitting edema), warm, radial pulses palpable and symetrical. Absent: cyanotic - Neurological Exam Neurological exam: Present: CN II-XII intact, oriented X3, no focal deficits. Absent: pronater drift, facial droop, speech deficit - Skin Skin exam: Present: dry, intact Internal Medicine: Result - Labs CBC & Chem 7: 12/05/16 03:58 12/05/16 03:58 Labs: Short CBC 12/05/16 Range/Units 03:58 WBC 9.2 (4.3-11.1) K/mcL Hgb 12.1 L (12.9-16.9) g/dL Hct 38.2 (37.5-50.1) % Plt Count 249 (140-400) K/mcL Neutrophils # 7.6 (1.6-8.9) K/mcL BMP 12/05/16 03:58 Sodium 137 Potassium 4.4 Chloride 102 Carbon Dioxide 24 BUN 24 Creatinine 0.99 Glucose 169 H Calcium 9.5 - Impressions Chest X-Ray 12/04/16 05:19 IMPRESSION: No acute cardiopulmonary process. D/ / Pedro Mckee MD / Pedro Mckee MD Interpreting Provider: Pedro Mckee MD - Attending Attestation I examined this patient and my medical decision-making was reviewed with the HOT BRAIDER/PA/Advanced Practice Nurse/Resident Physician. I agree with the documented findings, disposition and treatment plan as described except to the extent set forth below.
[2016-12-05] MEDS ORDERED: Albuterol 2.5 MG/3 ML NEBULIZER IH PRN (14:14)
[2016-12-05] MEDS: Insulin LISPRO 300 UNITS/3 ML VIAL SQ SCH ×2 (17:25→20:47)
[2016-12-05] MEDS: clonazePAM 0.5 MG TABLET PO PRN (20:57)
[2016-12-05 23:08] LABS: 2009 H1N1 PCR NOT DETECTED (Not Detect); Influenza A PCR Negative (Negative)
[2016-12-05 23:14] LABS: Influenza B PCR Positive (Negative)
[2016-12-06] MEDS: Ipratropium/Albuterol Neb 3 ML IH SCH ×5 (03:44→20:41)
[2016-12-06] MEDS: methylPREDNISolone 125 MG/2 ML VIAL IVP SCH ×2 (05:10→16:57)
[2016-12-06] MEDS: Ciprofloxacin OPTH Soln 2.5 ML BOTTLE LEFT EYE SCH ×5 (05:11→22:16)
[2016-12-06] MEDS: Insulin LISPRO 300 UNITS/3 ML VIAL SQ SCH ×4 (07:42→22:17)
[2016-12-06] MEDS: Aspirin Enteric Coated 81 MG Tablet PO SCH (07:44)
[2016-12-06] MEDS: Azelastine 0.1% Nasal Spray 30 ML BOTTLE NS SCH ×2 (07:44→22:14)
[2016-12-06] MEDS: Furosemide 40 MG/4 ML VIAL IVP SCH (07:44)
[2016-12-06] MEDS: Ciprofloxacin/Dex *EAR* Susp 7.5 ML BOTTLE BOTH EARS SCH ×2 (07:45→22:16)
[2016-12-06] MEDS: Fluticasone Propionate Nasal 50 MCG/SPRAY BOTTLE NS SCH (07:46)
[2016-12-06] MEDS: Loratadine 10 MG TABLET PO SCH (07:46)
[2016-12-06] MEDS: amLODIPine 5 MG TABLET PO SCH (07:47)
[2016-12-06] MEDS: (Roflumilast [Daliresp] 500 MCG) PO SCH (07:47)
[2016-12-06] MEDS: (Umeclidinium Bromide [Incruse Ellipta] 62.5 MCG) IH SCH (07:47)
[2016-12-06] MEDS: Budesonide/Formoterol 160/4.5 MDI IH SCH ×2 (07:50→20:41)
[2016-12-06] MEDS: Acetylcysteine 10% 2 ML INHSOL IH SCH ×3 (07:50→20:41)
--- NOTE | 2016-12-06 09:43 | Electrocardiograph Report ---
[place] [id number] Test Date: 2016-12-04 Pat Name: Don Herring Department: 105 Room: [facility] Gender: M Administrative Services Officer: : 1955 Requested By: Faisal Tavera Order Number: [id number] Reading MD: Morales Reyes MD Measurements Intervals [place] Rate: 99 P: 91 VA: 170 QRS: 38 QRSD: 85 T: 60 QT: 312 QTc: 368 Interpretive Statements SINUS RHYTHM Electronically Signed On 12-06-2016 9:41:30 EST by Morales Reyes MD
--- NOTE | 2016-12-06 09:58 | Internal Med Progress Note ---
<Martha Mckeon Wilmer - Last Filed: 12/06/16 16:31> Date of Encounter: 12/06/16 Time of Encounter: 09:54 - Assessment and plan (1) Influenza B Current Visit: Yes Status: Acute Assessment and plan: Patient positive for Influenza B by PCR Negative for A, Negative for A-H1N1 Continue Oseltamivir (2) Acute and chronic respiratory failure with hypoxia Current Visit: Yes Status: Acute Assessment and plan: Patient was afebrile with and did not require BIPAP at night to maintain O2 saturation. Continue O2 supplementation Methylpred IV Laxix IV Duonebs, albuterol nebs Acetylcysteine 10% Symbicort Mucinex Singulair, Claritin, flonase, Astelin (3) Acute sinusitis Current Visit: Yes Status: Acute Assessment and plan: CT of sinuses with small air-fluid level in left maxillary, medium air-fluid level in right maxillary sinus with underlying mucosal thickening Start omnicef Qualifiers: Sinusitis location: maxillary Recurrence: not specified as recurrent Qualified Code(s): J01.00 - Acute maxillary sinusitis, unspecified (4) Acute diastolic heart failure Current Visit: Yes Status: Acute Assessment and plan: 12/05/26 ECHO performed 09/25/16 with LVEF 60%, mild left ventricular diastolic dysfunction. Repeat ECHO 12/05/16 demonstrates LVEF 55-60%, no pulmonary HTN, no significant valvular dysfunction. CXR 12/04/16 demonstrates normal cardiac silhouette without pleural effusion or consolidation. BNP less than 10. Recent stress test 11/04/16 demonstrated a partially reversible inferior perfusion defect. However, this may be due to artifact from obese habitus. Despite normal EF and CXR, patient's dyspnea, orthopnea, paroxsyal nocturnal dyspnea, acute onset lower extremity edema do suggest heart failure. Fluid balance -870mL today. 12/06/16 Patient clinically does not appear to have heart failure. ECHO and CXR both negative. (5) COPD (chronic obstructive pulmonary disease) Current Visit: No Status: Chronic Qualifiers: COPD type: unspecified COPD Qualified Code(s): J44.9 - Chronic obstructive pulmonary disease, unspecified (6) Obstructive sleep apnea Current Visit: No Status: Chronic (7) Otitis externa Current Visit: Yes Status: Acute Assessment and plan: Continue ciprodex Qualifiers: Otitis externa type: unspecified type Qualified Code(s): H60.503 - Unspecified acute noninfective otitis externa, bilateral (8) HTN (hypertension) Current Visit: No Status: Chronic Assessment and plan: Discontinued Amlodipine due to bilateral leg swelling Started losartan Qualifiers: Hypertension type: essential hypertension Qualified Code(s): I10 - Essential (primary) hypertension (9) Morbid obesity with BMI of 40.0-44.9, adult Current Visit: No Status: Chronic (10) DVT prophylaxis Current Visit: No Status: Acute - Subjective Interval history: Patient states that prior to admission, he awoke from sleep with severe dyspnea. He "passed out on his bed", called EMS, and was found "passed out on his couch" when EMS arrived. Patient states that he is improved from yesterday. However, he continues to have orthopnea. He was unable to sleep in hospital bed and had to sit up in chair to sleep last night. His wheezing is present at this time, despite a nebulizer 1 hour ago. Admits to cough productive of white sputum and pain with deep inspiration. However, he denies chest pain and denies hemoptysis. He uses 2-3L home at times depending on activity level. He admits to abdominal pain from using his abdominal muscles to cough. Patient was recently hospitalized 11/20/16 for pneumonia and discharged 11/28/16 following treatment with ceftriaxone, azithromycin, steroid taper, duonebs. - Constitutional Vitals: Temp Pulse Resp BP Pulse Ox 97.8 F 80 16 133/78 93 L 12/06/16 06:46 12/06/16 06:46 12/06/16 06:46 12/06/16 06:46 12/06/16 06:46 General appearance: Present: A&O X 3, morbidly obese, pleasant, no acute distress, answers questions appropriately Internal Medicine: Result - Labs CBC & Chem 7: 12/05/16 03:58 12/05/16 03:58 Labs: Cardiac Enzymes 12/05/16 Range/Units 17:42 Troponin I 0.00 (0-0.03) ng/mL Consult Discharge Plan - Plan Referrals: Bryce Jones, [Primary Care Provider] - <Aiden Marsh - Last Filed: 12/06/16 17:32> Date of Encounter: 12/06/16 - Constitutional Vitals: Temp Pulse Resp BP Pulse Ox 97.9 F 84 16 131/76 95 12/06/16 10:49 12/06/16 10:49 12/06/16 11:05 12/06/16 10:49 12/06/16 11:05 Internal Medicine: Result - Labs CBC & Chem 7: 12/05/16 03:58 12/05/16 03:58 Labs: Cardiac Enzymes 12/05/16 Range/Units 17:42 Troponin I 0.00 (0-0.03) ng/mL - Attending Attestation I examined this patient and my medical decision-making was reviewed with the POTATO PEELING MACHINE OPERATOR/PA/Advanced Practice Nurse/Resident Physician. I agree with the documented findings, disposition and treatment plan as described except to the extent set forth below. Influenza infection on tamiflu. Edema of lower extremities might be induced by norvasc. Continue with therapy for copd. Switch to inpatient, high risk of respiratory failure.
[2016-12-06] MEDS: Psyllium 1 PACKET POWD.PACK PO SCH ×2 (10:26→22:14)
[2016-12-06] MEDS ORDERED: Cefdinir 300 MG CAPSULE PO SCH (11:15)
[2016-12-06] MEDS: clonazePAM 0.5 MG TABLET PO PRN (22:12)
[2016-12-06] MEDS: Cefdinir 300 MG CAPSULE PO SCH (22:12)
[2016-12-06] MEDS: Acetaminophen 325 MG TABLET PO PRN (22:13)
[2016-12-07] MEDS: Ciprofloxacin OPTH Soln 2.5 ML BOTTLE LEFT EYE SCH ×7 (01:25→23:28)
[2016-12-07] MEDS: Ipratropium/Albuterol Neb 3 ML IH SCH ×8 (01:30→23:48)
[2016-12-07] MEDS: methylPREDNISolone 125 MG/2 ML VIAL IVP SCH ×2 (05:48→16:54)
[2016-12-07] MEDS: Acetylcysteine 10% 2 ML INHSOL IH SCH ×3 (07:57→23:48)
[2016-12-07] MEDS: Budesonide/Formoterol 160/4.5 MDI IH SCH ×2 (07:57→20:34)
[2016-12-07] MEDS: Insulin LISPRO 300 UNITS/3 ML VIAL SQ SCH ×4 (08:06→22:12)
[2016-12-07] MEDS: Azelastine 0.1% Nasal Spray 30 ML BOTTLE NS SCH ×2 (08:09→20:07)
[2016-12-07] MEDS: Ciprofloxacin/Dex *EAR* Susp 7.5 ML BOTTLE BOTH EARS SCH ×2 (08:09→20:08)
[2016-12-07] MEDS: Cefdinir 300 MG CAPSULE PO SCH ×2 (08:10→20:04)
[2016-12-07] MEDS: Fluticasone Propionate Nasal 50 MCG/SPRAY BOTTLE NS SCH (08:11)
[2016-12-07] MEDS: Loratadine 10 MG TABLET PO SCH (08:11)
[2016-12-07] MEDS: (Roflumilast [Daliresp] 500 MCG) PO SCH (08:11)
[2016-12-07] MEDS: (Umeclidinium Bromide [Incruse Ellipta] 62.5 MCG) IH SCH (08:12)
[2016-12-07] MEDS ORDERED: Furosemide 40 MG/4 ML VIAL IVP SCH (09:00)
[2016-12-07] MEDS ORDERED: Sodium Chloride for inhalation 3 ML VIAL IH ONE (09:28)
[2016-12-07] MEDS: Psyllium 1 PACKET POWD.PACK PO SCH ×2 (09:39→22:12)
[2016-12-07 11:10] LABS: Basophils % 0.2 %; Hematocrit 38.2 % (37.5-50.1); Hemoglobin 12.2 g/dL (12.9-16.9); Immature Granulocytes % 1.4 % (0-4); Immature Platelets 2.2 % (1.1-6.1); Lymphocytes # 0.6 K/mcL (0.6-4.6); Lymphocytes % 4.3 %; Mean Corpuscular HGB Conc 31.9 g/dL (31.6-35.5); Mean Corpuscular Hemoglobin 26.6 pg (28.0-33.3); Mean Corpuscular Volume 83.2 fL (83.0-100.0); Mean Platelet Volume 8.8 fL (9.4-12.4); Monocytes # 0.5 K/mcL (0.0-1.3); Monocytes % 3.9 %; Neutrophils # 11.9 K/mcL (1.6-8.9); Platelet Count 284 K/mcL (140-400); Red Blood Count 4.59 M/mcL (4.19-5.50); Red Cell Distribution Width 16.6 % (11.5-14.5); Segmented Neutrophils % 90.2 %
[2016-12-07 11:22] LABS: BUN/Creatinine Ratio 30 (6-26); Blood Urea Nitrogen 31 mg/dL (8-26); Calcium 9.5 mg/dL (8.6-10.8); Carbon Dioxide 27 mEq/L (19-29); Chloride 98 mEq/L (98-109); Glucose 190 mg/dL (70-99); Osmolality,Calculated 294 (280-300); Potassium 4.1 mEq/L (3.5-4.5); Sodium 136 mEq/L (136-145); eGFR For African Americans > 60 (> 60); eGFR For Non-African Americans > 60 (> 60)
--- NOTE | 2016-12-07 13:07 | Internal Med Progress Note ---
<Aiden Marsh Franky - Last Filed: 12/07/16 18:00> Date of Encounter: 12/07/16 - Constitutional Vitals: Temp Pulse Resp BP Pulse Ox 98.6 F 85 18 136/70 93 L 12/07/16 15:14 12/07/16 15:14 12/07/16 15:52 12/07/16 15:14 12/07/16 15:52 Internal Medicine: Result - Labs CBC & Chem 7: 12/07/16 10:50 12/07/16 10:50 Labs: Short CBC 12/07/16 Range/Units 10:50 WBC 13.2 H (4.3-11.1) K/mcL Hgb 12.2 L (12.9-16.9) g/dL Hct 38.2 (37.5-50.1) % Plt Count 284 (140-400) K/mcL Neutrophils # 11.9 H (1.6-8.9) K/mcL BMP 12/07/16 10:50 Sodium 136 Potassium 4.1 Chloride 98 Carbon Dioxide 27 BUN 31 H Creatinine 1.04 Glucose 190 H Calcium 9.5 Consult Discharge Plan - Plan Referrals: Bryce Jones DO [Primary Care Provider] - - Attending Attestation I examined this patient and my medical decision-making was reviewed with the OFFICE ASSOCIATE/PA/Advanced Practice Nurse/Resident Physician. I agree with the documented findings, disposition and treatment plan as described except to the extent set forth below. COPD exacerbated by Flu and sinusitis, continue with antibiotics, steroids. Oxygen therapy and nebulizers. D/W patient. Agree with Dr. Mckeon. <Martha Mckeon - Last Filed: 12/07/16 19:04> Date of Encounter: 12/07/16 Time of Encounter: 10:00 - Assessment and plan (1) Influenza B Current Visit: Yes Status: Acute Assessment and plan: Patient positive for Influenza B by PCR Negative for A, Negative for A-H1N1 Continue Oseltamivir (2) Acute and chronic respiratory failure with hypoxia Current Visit: Yes Status: Acute Assessment and plan: Improving Sputum culture today due to change in nature of sputum from white/yellow/green to malik Discontinue IV lasix Continue O2 supplementation Methylpred IV Duonebs, albuterol nebs Acetylcysteine 10% Symbicort Mucinex Singulair, Claritin, flonase, Astelin (3) Acute exacerbation of chronic obstructive airways disease Current Visit: Yes Status: Acute Assessment and plan: See plan above (4) Acute sinusitis Current Visit: Yes Status: Acute Assessment and plan: CT of sinuses with small air-fluid level in left maxillary, medium air-fluid level in right maxillary sinus with underlying mucosal thickening Continue omnicef Qualifiers: Sinusitis location: maxillary Recurrence: not specified as recurrent Qualified Code(s): J01.00 - Acute maxillary sinusitis, unspecified (5) Acute diastolic heart failure Current Visit: Yes Status: Ruled-out Assessment and plan: 12/05/26 ECHO performed 09/25/16 with LVEF 60%, mild left ventricular diastolic dysfunction. Repeat ECHO 12/05/16 demonstrates LVEF 55-60%, no pulmonary HTN, no significant valvular dysfunction. CXR 12/04/16 demonstrates normal cardiac silhouette without pleural effusion or consolidation. BNP less than 10. Recent stress test 11/04/16 demonstrated a partially reversible inferior perfusion defect. However, this may be due to artifact from obese habitus. Despite normal EF and CXR, patient's dyspnea, orthopnea, paroxsyal nocturnal dyspnea, acute onset lower extremity edema do suggest heart failure. Fluid balance -870mL today. 12/06/16 Patient clinically does not appear to have heart failure. ECHO and CXR both negative. (6) COPD (chronic obstructive pulmonary disease) Current Visit: No Status: Chronic Assessment and plan: See plan as above Qualifiers: COPD type: unspecified COPD Qualified Code(s): J44.9 - Chronic obstructive pulmonary disease, unspecified (7) Obstructive sleep apnea Current Visit: No Status: Chronic Assessment and plan: Continue BIPAP QHS (8) Otitis externa Current Visit: Yes Status: Acute Assessment and plan: Continue ciprodex Qualifiers: Otitis externa type: unspecified type Laterality: bilateral Qualified Code(s): H60.503 - Unspecified acute noninfective otitis externa, bilateral (9) HTN (hypertension) Current Visit: No Status: Chronic Assessment and plan: Discontinued Amlodipine due to bilateral leg swelling Started losartan Qualifiers: Hypertension type: essential hypertension Qualified Code(s): I10 - Essential (primary) hypertension (10) Morbid obesity with BMI of 40.0-44.9, adult Current Visit: No Status: Chronic (11) DVT prophylaxis Current Visit: No Status: Acute - Time Spent With Patient 25 - 35 minutes (25 minutes including time with patient and coordinating care) - Subjective Interval history: Patient states that prior to admission, he awoke from sleep with severe dyspnea. He "passed out on his bed", called EMS, and was found "passed out on his couch" when EMS arrived. Patient states that he is improved from yesterday. However, he continues to have orthopnea. He was unable to sleep in hospital bed and had to sit up in chair to sleep last night. His wheezing is present at this time, despite a nebulizer 1 hour ago. Admits to cough productive of white sputum and pain with deep inspiration. However, he denies chest pain and denies hemoptysis. He uses 2-3L home at times depending on activity level. He admits to abdominal pain from using his abdominal muscles to cough. Patient was recently hospitalized 11/20/16 for pneumonia and discharged 11/28/16 following treatment with ceftriaxone, azithromycin, steroid taper, duonebs. 12/07/16: Patient is sitting forward in chair at time of interview. He states he is somewhat better. Patient admits change in nature of sputum from white/ yellow/green to malik. He is capable of ambulating about the room comfortably on 3L O2. - Constitutional Vitals: Temp Pulse Resp BP Pulse Ox 97.7 F 81 16 127/73 95 12/07/16 11:47 12/07/16 11:47 12/07/16 11:47 12/07/16 11:47 12/07/16 11:47 General appearance: Present: A&O X 3, morbidly obese, pleasant, no acute distress, answers questions appropriately - Head Head exam: Present: atraumatic, normocephalic - Eye Eye exam: Present: PERRL, conjuntiva pink, sclera anicteric - Neck Neck exam general surgery: Present: lymphadenopathy, supple, trachea midline - Respiratory Respiratory exam: Present: wheezes (All lung banks). Absent: accessory muscle use, rales, respiratory distress, rhonchi - Cardiovascular Cardiovascular exam: Present: RRR, +S1, +S2. Absent: diastolic murmur, gallop, rubs, systolic murmur - GI/Abdominal GI/Abdominal exam: Present: normal bowel sounds, soft, no peritoneal signs. Absent: distended, tenderness - Extremities Exam Extremities exam: Present: pedal edema (1+ pitting edema), warm, radial pulses palpable and symetrical. Absent: cyanotic - Neurological Exam Neurological exam: Present: CN II-XII intact, oriented X3, no focal deficits. Absent: pronater drift, facial droop, speech deficit - Skin Skin exam: Present: dry, intact Internal Medicine: Result - Labs CBC & Chem 7: 12/07/16 10:50 12/07/16 10:50 Labs: Short CBC 12/07/16 Range/Units 10:50 WBC 13.2 H (4.3-11.1) K/mcL Hgb 12.2 L (12.9-16.9) g/dL Hct 38.2 (37.5-50.1) % Plt Count 284 (140-400) K/mcL Neutrophils # 11.9 H (1.6-8.9) K/mcL BMP 12/07/16 10:50 Sodium 136 Potassium 4.1 Chloride 98 Carbon Dioxide 27 BUN 31 H Creatinine 1.04 Glucose 190 H Calcium 9.5
[2016-12-07] MEDS: clonazePAM 0.5 MG TABLET PO PRN (22:12)
[2016-12-08] MEDS: Ciprofloxacin OPTH Soln 2.5 ML BOTTLE LEFT EYE SCH ×6 (03:41→23:04)
[2016-12-08] MEDS: methylPREDNISolone 125 MG/2 ML VIAL IVP SCH ×2 (03:41→16:33)
[2016-12-08] MEDS: Ipratropium/Albuterol Neb 3 ML IH SCH ×6 (04:09→23:27)
[2016-12-08 05:11] LABS: Basophils % 0.1 %; Hematocrit 37.9 % (37.5-50.1); Hemoglobin 11.9 g/dL (12.9-16.9); Immature Granulocytes % 0.6 % (0-4); Lymphocytes # 1.1 K/mcL (0.6-4.6); Lymphocytes % 8.9 %; Mean Corpuscular HGB Conc 31.4 g/dL (31.6-35.5); Mean Corpuscular Hemoglobin 26.2 pg (28.0-33.3); Mean Corpuscular Volume 83.5 fL (83.0-100.0); Mean Platelet Volume 9.3 fL (9.4-12.4); Monocytes # 0.7 K/mcL (0.0-1.3); Monocytes % 5.6 %; Neutrophils # 10.7 K/mcL (1.6-8.9); Platelet Count 257 K/mcL (140-400); Red Blood Count 4.54 M/mcL (4.19-5.50); Red Cell Distribution Width 16.6 % (11.5-14.5); Segmented Neutrophils % 84.8 %
[2016-12-08 05:31] LABS: BUN/Creatinine Ratio 35 (6-26); Blood Urea Nitrogen 35 mg/dL (8-26); Calcium 8.9 mg/dL (8.6-10.8); Carbon Dioxide 25 mEq/L (19-29); Chloride 100 mEq/L (98-109); Glucose 165 mg/dL (70-99); Osmolality,Calculated 296 (280-300); Potassium 4.2 mEq/L (3.5-4.5); Sodium 137 mEq/L (136-145); eGFR For African Americans > 60 (> 60); eGFR For Non-African Americans > 60 (> 60)
[2016-12-08] MEDS: Budesonide/Formoterol 160/4.5 MDI IH SCH ×2 (07:54→19:44)
[2016-12-08] MEDS: Cefdinir 300 MG CAPSULE PO SCH ×2 (07:54→20:31)
[2016-12-08] MEDS: Acetylcysteine 10% 2 ML INHSOL IH SCH ×3 (07:54→23:27)
[2016-12-08] MEDS: Furosemide 20 MG TABLET PO SCH (07:55)
[2016-12-08] MEDS: Loratadine 10 MG TABLET PO SCH (07:55)
[2016-12-08] MEDS: Insulin LISPRO 300 UNITS/3 ML VIAL SQ SCH ×4 (07:56→20:48)
[2016-12-08] MEDS: Azelastine 0.1% Nasal Spray 30 ML BOTTLE NS SCH ×2 (07:57→20:32)
[2016-12-08] MEDS: Ciprofloxacin/Dex *EAR* Susp 7.5 ML BOTTLE BOTH EARS SCH ×2 (07:57→20:33)
[2016-12-08] MEDS: Fluticasone Propionate Nasal 50 MCG/SPRAY BOTTLE NS SCH (07:57)
[2016-12-08] MEDS: (Umeclidinium Bromide [Incruse Ellipta] 62.5 MCG) IH SCH (07:59)
[2016-12-08] MEDS: (Roflumilast [Daliresp] 500 MCG) PO SCH (07:59)
[2016-12-08] MEDS: Psyllium 1 PACKET POWD.PACK PO SCH ×2 (09:21→23:04)
[2016-12-08] MEDS: *HR* Heparin 5,000 UNIT/ML VIAL SQ SCH ×2 (12:09→18:24)
[2016-12-08] MEDS ORDERED: Magnesium Sulfate 2 GM in D5% in Water 100 ML IVPB ONE (15:58)
--- NOTE | 2016-12-08 16:38 | Internal Med Progress Note ---
<Martha Mckeon Wilmer - Last Filed: 12/08/16 16:47> Date of Encounter: 12/08/16 Time of Encounter: 10:15 - Assessment and plan (1) Influenza B Current Visit: Yes Status: Acute Assessment and plan: Patient positive for Influenza B by PCR Negative for A, Negative for A-H1N1 Continue Oseltamivir (2) Acute and chronic respiratory failure with hypoxia Current Visit: Yes Status: Acute Assessment and plan: Improved Sputum culture today due to change in nature of sputum from white/yellow/green to malik Continue O2 supplementation Methylpred IV Duonebs, albuterol nebs Acetylcysteine 10% Symbicort Mucinex Singulair, Claritin, flonase, Astelin 12/08/16 Overall, patient is improving clinically Sputum culture gram stain with few Gram positive cocci, does not meet qualifications for culture Aspergillus Antigen, pending Aspergillus IgE, pending Fungitell, pending Pertussis Ab, pending IgE, pending MPO/PR3 antibody, pending (3) Acute exacerbation of chronic obstructive airways disease Current Visit: Yes Status: Acute Assessment and plan: See plan above (4) Acute sinusitis Current Visit: Yes Status: Acute Assessment and plan: CT of sinuses with small air-fluid level in left maxillary, medium air-fluid level in right maxillary sinus with underlying mucosal thickening Continue omnicef Qualifiers: Sinusitis location: maxillary Recurrence: not specified as recurrent Qualified Code(s): J01.00 - Acute maxillary sinusitis, unspecified (5) Acute diastolic heart failure Current Visit: Yes Status: Ruled-out Assessment and plan: 12/05/26 ECHO performed 09/25/16 with LVEF 60%, mild left ventricular diastolic dysfunction. Repeat ECHO 12/05/16 demonstrates LVEF 55-60%, no pulmonary HTN, no significant valvular dysfunction. CXR 12/04/16 demonstrates normal cardiac silhouette without pleural effusion or consolidation. BNP less than 10. Recent stress test 11/04/16 demonstrated a partially reversible inferior perfusion defect. However, this may be due to artifact from obese habitus. Despite normal EF and CXR, patient's dyspnea, orthopnea, paroxsyal nocturnal dyspnea, acute onset lower extremity edema do suggest heart failure. Fluid balance -870mL today. 12/06/16 Patient clinically does not appear to have heart failure. ECHO and CXR both negative. (6) COPD (chronic obstructive pulmonary disease) Current Visit: No Status: Chronic Assessment and plan: See plan as above Qualifiers: COPD type: unspecified COPD Qualified Code(s): J44.9 - Chronic obstructive pulmonary disease, unspecified (7) Obstructive sleep apnea Current Visit: No Status: Chronic Assessment and plan: Continue BIPAP QHS (8) Otitis externa Current Visit: Yes Status: Acute Assessment and plan: Continue ciprodex Qualifiers: Otitis externa type: unspecified type Laterality: bilateral Qualified Code(s): H60.503 - Unspecified acute noninfective otitis externa, bilateral (9) HTN (hypertension) Current Visit: No Status: Chronic Assessment and plan: Discontinued Amlodipine due to bilateral leg swelling Started losartan Continue to monitor BP Qualifiers: Hypertension type: essential hypertension Qualified Code(s): I10 - Essential (primary) hypertension (10) Morbid obesity with BMI of 40.0-44.9, adult Current Visit: No Status: Chronic (11) DVT prophylaxis Current Visit: No Status: Acute Assessment and plan: Heparin 5000units SQ BID - Time Spent With Patient 25 - 35 minutes (30 minutes including time with patient and coordinating care) - Subjective Interval history: Patient states that prior to admission, he awoke from sleep with severe dyspnea. He "passed out on his bed", called EMS, and was found "passed out on his couch" when EMS arrived. Patient states that he is improved from yesterday. However, he continues to have orthopnea. He was unable to sleep in hospital bed and had to sit up in chair to sleep last night. His wheezing is present at this time, despite a nebulizer 1 hour ago. Admits to cough productive of white sputum and pain with deep inspiration. However, he denies chest pain and denies hemoptysis. He uses 2-3L home at times depending on activity level. He admits to abdominal pain from using his abdominal muscles to cough. Patient was recently hospitalized 11/20/16 for pneumonia and discharged 11/28/16 following treatment with ceftriaxone, azithromycin, steroid taper, duonebs. 12/07/16: Patient is sitting forward in chair at time of interview. He states he is somewhat better. Patient admits change in nature of sputum from white/ yellow/green to malik. He is capable of ambulating about the room comfortably on 3L O2. 12/08/16: Patient is resting in chair with feet propped at time of interview. He was not able to sleep in bed last night. Instead, he slept in chair. He states that he feels overall better than when he initially presented to hospital. - Constitutional Vitals: Temp Pulse Resp BP Pulse Ox 97.4 F L 83 20 151/83 94 L 12/08/16 15:04 12/08/16 15:04 12/08/16 15:42 12/08/16 15:04 12/08/16 15:42 General appearance: Present: A&O X 3, morbidly obese, pleasant, no acute distress, answers questions appropriately - Head Head exam: Present: atraumatic, normocephalic - Eye Eye exam: Present: PERRL, conjuntiva pink, sclera anicteric Pupils: Present: PERRL - Expanded ENT Exam Throat exam: Present: normal inspection. Absent: tonsillar erythema, tonsillar exudate, tonsillomegaly - Neck Neck exam general surgery: Present: supple, trachea midline. Absent: lymphadenopathy - Respiratory Respiratory exam: Present: prolonged expiratory phase, wheezes (Diffuse wheezing in all lung banks). Absent: accessory muscle use, rales, respiratory distress, rhonchi - Cardiovascular Cardiovascular exam: Present: RRR, +S1, +S2. Absent: diastolic murmur, gallop, rubs, systolic murmur - GI/Abdominal GI/Abdominal exam: Present: normal bowel sounds, soft, no peritoneal signs. Absent: distended, tenderness Additional comments: Exam limited due to patient sitting up in chair and unable to lie flat for exam. Unable to appreciate abdominal organs upon palpation due to protuberant nature of abdomen. - Extremities Exam Extremities exam: Present: pedal edema (1+ pitting edema to bilateral lower extremities), warm, radial pulses palpable and symetrical. Absent: calf tenderness, cyanotic - Neurological Exam Neurological exam: Present: CN II-XII intact, oriented X3, no focal deficits. Absent: pronater drift, facial droop, speech deficit - Skin Skin exam: Present: dry, intact Internal Medicine: Result - Labs CBC & Chem 7: 12/08/16 03:58 12/08/16 03:58 Labs: Short CBC 12/08/16 Range/Units 03:58 WBC 12.6 H (4.3-11.1) K/mcL Hgb 11.9 L (12.9-16.9) g/dL Hct 37.9 (37.5-50.1) % Plt Count 257 (140-400) K/mcL Neutrophils # 10.7 H (1.6-8.9) K/mcL [facility] 12/08/16 03:58 Sodium 137 Potassium 4.2 Chloride 100 Carbon Dioxide 25 BUN 35 H Creatinine 0.99 Glucose 165 H Calcium 8.9 Consult Discharge Plan - Plan Referrals: Bryce Jones DO [Primary Care Provider] - - Attending Attestation I examined this patient and my medical decision-making was reviewed with the MANDARIN TUTOR/PA/Advanced Practice Nurse/Resident Physician. I agree with the documented findings, disposition and treatment plan as described except to the extent set forth below. <Aiden Marsh - Last Filed: 12/08/16 16:59> Date of Encounter: 12/08/16 - Constitutional Vitals: Temp Pulse Resp BP Pulse Ox 97.4 F L 83 20 151/83 94 L 12/08/16 15:04 12/08/16 15:04 12/08/16 15:42 12/08/16 15:04 12/08/16 15:42 Internal Medicine: Result - Labs CBC & Chem 7: 12/08/16 03:58 12/08/16 03:58 Labs: Short CBC 12/08/16 Range/Units 03:58 WBC 12.6 H (4.3-11.1) K/mcL Hgb 11.9 L (12.9-16.9) g/dL Hct 37.9 (37.5-50.1) % Plt Count 257 (140-400) K/mcL Neutrophils # 10.7 H (1.6-8.9) K/mcL [facility] 12/08/16 03:58 Sodium 137 Potassium 4.2 Chloride 100 Carbon Dioxide 25 BUN 35 H Creatinine 0.99 Glucose 165 H Calcium 8.9 - Attending Attestation I examined this patient and my medical decision-making was reviewed with the MANDARIN TUTOR/PA/Advanced Practice Nurse/Resident Physician. I agree with the documented findings, disposition and treatment plan as described except to the extent set forth below. Continue with steroids, oxygen therapy, bipap. D/W patient, possible d/c tomorrow.
[2016-12-08] MEDS: clonazePAM 0.5 MG TABLET PO PRN (20:35)
[2016-12-09] MEDS: Ipratropium/Albuterol Neb 3 ML IH SCH ×6 (03:19→23:40)
[2016-12-09] MEDS: Ciprofloxacin OPTH Soln 2.5 ML BOTTLE LEFT EYE SCH ×5 (04:29→21:03)
[2016-12-09] MEDS: methylPREDNISolone 125 MG/2 ML VIAL IVP SCH (04:29)
[2016-12-09] MEDS: *HR* Heparin 5,000 UNIT/ML VIAL SQ SCH ×2 (06:12→18:14)
[2016-12-09 07:42] LABS: B Pertussis Antibody IgA 0.1 U/mL (<=1.1); B Pertussis Antibody IgG 0.9 U/mL (0.0-0.9); B Pertussis Antibody IgM 0.4 U/mL (<=1.1)
[2016-12-09 07:43] LABS: Myeloperoxidase Ab 2 AU/mL (0-19); Serine Protease-3 Antibody 0 AU/mL (0-19)
[2016-12-09] MEDS: Acetylcysteine 10% 2 ML INHSOL IH SCH ×3 (08:11→23:40)
[2016-12-09] MEDS: Budesonide/Formoterol 160/4.5 MDI IH SCH ×2 (08:11→20:09)
[2016-12-09] MEDS: Cefdinir 300 MG CAPSULE PO SCH ×2 (08:57→20:57)
[2016-12-09] MEDS: Furosemide 20 MG TABLET PO SCH (08:58)
[2016-12-09] MEDS: Loratadine 10 MG TABLET PO SCH (08:58)
[2016-12-09] MEDS: Insulin LISPRO 300 UNITS/3 ML VIAL SQ SCH ×4 (08:59→21:07)
[2016-12-09] MEDS: Ciprofloxacin/Dex *EAR* Susp 7.5 ML BOTTLE BOTH EARS SCH ×2 (09:00→21:02)
[2016-12-09] MEDS: Azelastine 0.1% Nasal Spray 30 ML BOTTLE NS SCH ×2 (09:00→21:01)
[2016-12-09 09:01] LABS: Basophils % 0.4 %; Hematocrit 39.9 % (37.5-50.1); Hemoglobin 12.5 g/dL (12.9-16.9); Lymphocytes # 1.1 K/mcL (0.6-4.6); Lymphocytes % 11.7 %; Mean Corpuscular HGB Conc 31.3 g/dL (31.6-35.5); Mean Corpuscular Hemoglobin 26.7 pg (28.0-33.3); Mean Corpuscular Volume 85.3 fL (83.0-100.0); Mean Platelet Volume 8.9 fL (9.4-12.4); Monocytes # 0.4 K/mcL (0.0-1.3); Monocytes % 3.9 %; Platelet Count 221 K/mcL (140-400); Red Blood Count 4.68 M/mcL (4.19-5.50); Red Cell Distribution Width 16.7 % (11.5-14.5)
[2016-12-09] MEDS: (Roflumilast [Daliresp] 500 MCG) PO SCH (09:01)
[2016-12-09] MEDS: Fluticasone Propionate Nasal 50 MCG/SPRAY BOTTLE NS SCH (09:01)
[2016-12-09] MEDS: Psyllium 1 PACKET POWD.PACK PO SCH ×2 (09:02→22:50)
[2016-12-09] MEDS: (Umeclidinium Bromide [Incruse Ellipta] 62.5 MCG) IH SCH (09:02)
[2016-12-09 09:06] LABS: BUN/Creatinine Ratio 34 (6-26); Blood Urea Nitrogen 32 mg/dL (8-26); Calcium 8.8 mg/dL (8.6-10.8); Carbon Dioxide 25 mEq/L (19-29); Chloride 106 mEq/L (98-109); Glucose 143 mg/dL (70-99); Osmolality,Calculated 299 (280-300); Potassium 4.7 mEq/L (3.5-4.5); Sodium 140 mEq/L (136-145); eGFR For African Americans > 60 (> 60); eGFR For Non-African Americans > 60 (> 60)
--- NOTE | 2016-12-09 11:37 | Internal Med Progress Note ---
Addendum entered and electronically signed by Martha Mckeon DO 15:39: Testing for Bordetella pertussis Ab and ANCA testing negative. Original Note: <Martha Mckeon - Last Filed: 12/09/16 15:13> Date of Encounter: 12/09/16 Time of Encounter: 10:30 - Assessment and plan (1) Influenza B Current Visit: Yes Status: Acute Assessment and plan: Patient positive for Influenza B by PCR Negative for A, Negative for A-H1N1 Continue Oseltamivir (2) Acute and chronic respiratory failure with hypoxia Current Visit: Yes Status: Acute Assessment and plan: Improved Sputum culture today due to change in nature of sputum from white/yellow/green to malik Continue O2 supplementation Methylpred IV Duonebs, albuterol nebs Acetylcysteine 10% Symbicort Mucinex Singulair, Claritin, flonase, Astelin 12/08/16 Overall, patient is improving clinically Sputum culture gram stain with few Gram positive cocci, does not meet qualifications for culture Aspergillus Antigen, pending Aspergillus IgE, pending Fungitell, pending Pertussis Ab, pending IgE, pending MPO/PR3 antibody, pending 12/09/16 Patient is improving Will decrease solu-medrol today Awaiting laboratory testing for Priscilla's, aspergillus, pertussis Continue nebs, supplemental O2 Patient will need outpatient follow up ENT Patient will need outpatient follow up with allergy to rule out allergy as inciting factor for reactive airway disease (3) Acute exacerbation of chronic obstructive airways disease Current Visit: Yes Status: Acute Assessment and plan: See plan above (4) Acute sinusitis Current Visit: Yes Status: Acute Assessment and plan: CT of sinuses with small air-fluid level in left maxillary, medium air-fluid level in right maxillary sinus with underlying mucosal thickening Continue omnicef Qualifiers: Sinusitis location: maxillary Recurrence: not specified as recurrent Qualified Code(s): J01.00 - Acute maxillary sinusitis, unspecified (5) Acute diastolic heart failure Current Visit: Yes Status: Ruled-out Assessment and plan: 12/05/26 ECHO performed 09/25/16 with LVEF 60%, mild left ventricular diastolic dysfunction. Repeat ECHO 12/05/16 demonstrates LVEF 55-60%, no pulmonary HTN, no significant valvular dysfunction. CXR 12/04/16 demonstrates normal cardiac silhouette without pleural effusion or consolidation. BNP less than 10. Recent stress test 11/04/16 demonstrated a partially reversible inferior perfusion defect. However, this may be due to artifact from obese habitus. Despite normal EF and CXR, patient's dyspnea, orthopnea, paroxsyal nocturnal dyspnea, acute onset lower extremity edema do suggest heart failure. Fluid balance -870mL today. 12/06/16 Patient clinically does not appear to have heart failure. ECHO and CXR both negative. (6) COPD (chronic obstructive pulmonary disease) Current Visit: No Status: Chronic Assessment and plan: See plan as above Qualifiers: COPD type: unspecified COPD Qualified Code(s): J44.9 - Chronic obstructive pulmonary disease, unspecified (7) Obstructive sleep apnea Current Visit: No Status: Chronic Assessment and plan: Continue BIPAP QHS (8) Otitis externa Current Visit: Yes Status: Acute Assessment and plan: Continue ciprodex Qualifiers: Otitis externa type: unspecified type Laterality: bilateral Qualified Code(s): H60.503 - Unspecified acute noninfective otitis externa, bilateral (9) HTN (hypertension) Current Visit: No Status: Chronic Assessment and plan: Discontinued Amlodipine due to bilateral leg swelling Started losartan Continue to monitor BP Qualifiers: Hypertension type: essential hypertension Qualified Code(s): I10 - Essential (primary) hypertension (10) Morbid obesity with BMI of 40.0-44.9, adult Current Visit: No Status: Chronic (11) DVT prophylaxis Current Visit: No Status: Acute Assessment and plan: Heparin 5000units SQ BID - Subjective Interval history: Patient states that prior to admission, he awoke from sleep with severe dyspnea. He "passed out on his bed", called EMS, and was found "passed out on his couch" when EMS arrived. Patient states that he is improved from yesterday. However, he continues to have orthopnea. He was unable to sleep in hospital bed and had to sit up in chair to sleep last night. His wheezing is present at this time, despite a nebulizer 1 hour ago. Admits to cough productive of white sputum and pain with deep inspiration. However, he denies chest pain and denies hemoptysis. He uses 2-3L home at times depending on activity level. He admits to abdominal pain from using his abdominal muscles to cough. Patient was recently hospitalized 11/20/16 for pneumonia and discharged 11/28/16 following treatment with ceftriaxone, azithromycin, steroid taper, duonebs. 12/07/16: Patient is sitting forward in chair at time of interview. He states he is somewhat better. Patient admits change in nature of sputum from white/ yellow/green to malik. He is capable of ambulating about the room comfortably on 3L O2. 12/08/16: Patient is resting in chair with feet propped at time of interview. He was not able to sleep in bed last night. Instead, he slept in chair. He states that he feels overall better than when he initially presented to hospital. 12/09/16: Patient doing better this morning. He started the night sleeping in bed. However, around 3am had an episode of dyspnea when trying to take his medications. He is feeling better each day, but continues to have wheezing. - Constitutional Vitals: Temp Pulse Resp BP Pulse Ox 98.2 F 78 17 130/70 93 L 12/09/16 11:27 12/09/16 11:27 12/09/16 11:27 12/09/16 11:27 12/09/16 11:27 General appearance: Present: A&O X 3, morbidly obese, pleasant, no acute distress, answers questions appropriately - Head Head exam: Present: atraumatic, normocephalic - Eye Eye exam: Present: EOMI, PERRL, conjuntiva pink, sclera anicteric Pupils: Present: PERRL - ENT ENT exam: Present: mucous membranes moist Additional comments: No TTP to maxillary sinuses, no tonsilar exudates, no pharyngeal erythema - Neck Neck exam general surgery: Present: lymphadenopathy, supple, trachea midline - Respiratory Respiratory exam: Present: prolonged expiratory phase, wheezes (All lung banks. Decreased from yesterday.). Absent: accessory muscle use, CTAB, rales , respiratory distress, rhonchi - Cardiovascular Cardiovascular exam: Present: distant heart sounds, RRR, +S1, +S2. Absent: diastolic murmur, gallop, rubs, systolic murmur - GI/Abdominal GI/Abdominal exam: Present: normal bowel sounds, soft, tenderness (to RLQ), no peritoneal signs. Absent: distended - Extremities Exam Extremities exam: Present: warm, radial pulses palpable and symetrical. Absent : calf tenderness, cyanotic, pedal edema - Neurological Exam Neurological exam: Present: CN II-XII intact, oriented X3, no focal deficits. Absent: pronater drift, facial droop, speech deficit - Skin Skin exam: Present: dry, intact Internal Medicine: Result - Labs CBC & Chem 7: 12/09/16 08:43 12/09/16 08:43 Labs: Short CBC 12/09/16 Range/Units 08:43 WBC 9.7 (4.3-11.1) K/mcL Hgb 12.5 L (12.9-16.9) g/dL Hct 39.9 (37.5-50.1) % Plt Count 221 (140-400) K/mcL Neutrophils # 8.0 (1.6-8.9) K/mcL BMP 12/09/16 08:43 Sodium 140 Potassium 4.7 H Chloride 106 Carbon Dioxide 25 BUN 32 H Creatinine 0.94 Glucose 143 H Calcium 8.8 Consult Discharge Plan - Plan Referrals: Bryce Jones DO [Primary Care Provider] - - Attending Attestation I examined this patient and my medical decision-making was reviewed with the [employer]/PA/Advanced Practice Nurse/Resident Physician. I agree with the documented findings, disposition and treatment plan as described except to the extent set forth below. <Aiden Marsh - Last Filed: 12/09/16 18:22> Date of Encounter: 12/09/16 - Constitutional Vitals: Temp Pulse Resp BP Pulse Ox 97.8 F 82 17 142/66 95 12/09/16 15:49 12/09/16 15:49 12/09/16 16:17 12/09/16 15:49 12/09/16 16:17 Internal Medicine: Result - Labs CBC & Chem 7: 12/09/16 08:43 12/09/16 08:43 Labs: Short CBC 12/09/16 Range/Units 08:43 WBC 9.7 (4.3-11.1) K/mcL Hgb 12.5 L (12.9-16.9) g/dL Hct 39.9 (37.5-50.1) % Plt Count 221 (140-400) K/mcL Neutrophils # 8.0 (1.6-8.9) K/mcL BMP 12/09/16 08:43 Sodium 140 Potassium 4.7 H Chloride 106 Carbon Dioxide 25 BUN 32 H Creatinine 0.94 Glucose 143 H Calcium 8.8 - Attending Attestation I examined this patient and my medical decision-making was reviewed with the [employer]/PA/Advanced Practice Nurse/Resident Physician. I agree with the documented findings, disposition and treatment plan as described except to the extent set forth below. Mr. Herring was seen and examined during rounds. COPD exacerbation in the setting of influenza. Continue with steroids, monitor the patient closely. Possible discharge tomorrow in a.m.
[2016-12-09] MEDS: MethylPREDNISolone 40 MG/ML VIAL IVP SCH (15:27)
[2016-12-09] MEDS: Acetaminophen 325 MG TABLET PO PRN (20:56)
[2016-12-09] MEDS: clonazePAM 0.5 MG TABLET PO PRN (20:57)
[2016-12-09] MEDS: Saline Nasal Spray 44 ML BOTTLE NS PRN (21:06)
[2016-12-10] MEDS: *HR* Heparin 5,000 UNIT/ML VIAL SQ SCH ×3 (00:39→06:12)
[2016-12-10] MEDS: MethylPREDNISolone 40 MG/ML VIAL IVP SCH ×2 (00:45→13:39)
[2016-12-10] MEDS: Ciprofloxacin OPTH Soln 2.5 ML BOTTLE LEFT EYE SCH ×4 (00:47→12:25)
[2016-12-10] MEDS: Ipratropium/Albuterol Neb 3 ML IH SCH ×4 (04:30→15:49)
[2016-12-10 05:38] LABS: Basophils # 0.1 K/mcL (0.0-0.2); Basophils % 0.5 %; Hematocrit 36.5 % (37.5-50.1); Hemoglobin 11.4 g/dL (12.9-16.9); Lymphocytes # 0.7 K/mcL (0.6-4.6); Lymphocytes % 6.9 %; Mean Corpuscular HGB Conc 31.2 g/dL (31.6-35.5); Mean Corpuscular Hemoglobin 26.6 pg (28.0-33.3); Mean Corpuscular Volume 85.1 fL (83.0-100.0); Mean Platelet Volume 9.1 fL (9.4-12.4); Monocytes # 0.4 K/mcL (0.0-1.3); Monocytes % 3.8 %; Neutrophils # 8.7 K/mcL (1.6-8.9); Platelet Count 193 K/mcL (140-400); Red Blood Count 4.29 M/mcL (4.19-5.50); Red Cell Distribution Width 16.1 % (11.5-14.5); Segmented Neutrophils % 85.8 %
[2016-12-10 05:54] LABS: BUN/Creatinine Ratio 31 (6-26); Blood Urea Nitrogen 28 mg/dL (8-26); Calcium 8.4 mg/dL (8.6-10.8); Carbon Dioxide 25 mEq/L (19-29); Chloride 104 mEq/L (98-109); Glucose 165 mg/dL (70-99); Osmolality,Calculated 297 (280-300); Potassium 4.9 mEq/L (3.5-4.5); Sodium 139 mEq/L (136-145); eGFR For African Americans > 60 (> 60); eGFR For Non-African Americans > 60 (> 60)
[2016-12-10] MEDS: Budesonide/Formoterol 160/4.5 MDI IH SCH (07:48)
[2016-12-10] MEDS: Acetylcysteine 10% 2 ML INHSOL IH SCH ×2 (07:48→15:49)
[2016-12-10] MEDS: Psyllium 1 PACKET POWD.PACK PO SCH (08:36)
[2016-12-10] MEDS: Azelastine 0.1% Nasal Spray 30 ML BOTTLE NS SCH (08:36)
[2016-12-10] MEDS: Fluticasone Propionate Nasal 50 MCG/SPRAY BOTTLE NS SCH (08:37)
[2016-12-10] MEDS: Loratadine 10 MG TABLET PO SCH (08:39)
[2016-12-10] MEDS: Cefdinir 300 MG CAPSULE PO SCH (08:39)
[2016-12-10] MEDS: Furosemide 20 MG TABLET PO SCH (08:40)
[2016-12-10] MEDS: Ciprofloxacin/Dex *EAR* Susp 7.5 ML BOTTLE BOTH EARS SCH (08:44)
[2016-12-10] MEDS: Insulin LISPRO 300 UNITS/3 ML VIAL SQ SCH ×2 (08:46→11:55)
[2016-12-10] MEDS: clonazePAM 0.5 MG TABLET PO PRN (10:01)
--- NOTE | 2016-12-10 10:51 | Discharge Summary ---
<MckeonMartha Wilmer - Last Filed: 12/10/16 14:01> Date of Encounter: 12/10/16 Time of Encounter: 08:30 - Discharge Diagnosis (1) Influenza B Priority: Primary Status: Acute (2) Acute and chronic respiratory failure with hypoxia Priority: Primary Status: Resolved (3) Acute exacerbation of chronic obstructive airways disease Priority: Primary Status: Acute (4) Acute sinusitis Priority: Secondary Status: Acute Qualifiers: Sinusitis location: maxillary Recurrence: not specified as recurrent Qualified Code(s): J01.00 - Acute maxillary sinusitis, unspecified (5) COPD (chronic obstructive pulmonary disease) Priority: Secondary Status: Chronic Qualifiers: COPD type: unspecified COPD Qualified Code(s): J44.9 - Chronic obstructive pulmonary disease, unspecified (6) Acute diastolic heart failure Priority: Secondary Status: Ruled-out (7) Obstructive sleep apnea Priority: Secondary Status: Chronic (8) Otitis externa Priority: Secondary Status: Acute Qualifiers: Otitis externa type: unspecified type Laterality: bilateral Qualified Code(s): H60.503 - Unspecified acute noninfective otitis externa, bilateral (9) HTN (hypertension) Priority: Secondary Status: Chronic Qualifiers: Hypertension type: essential hypertension Qualified Code(s): I10 - Essential (primary) hypertension (10) Morbid obesity with BMI of 40.0-44.9, adult Priority: Secondary Status: Chronic (11) DVT prophylaxis Priority: Secondary Status: Acute - Discharge Medications Prescriptions: Albuterol Neb [Proventil Neb] 2.5 mg IH [id number] PRN 30 Days PRN Reason: Shortness Of Breath/Wheezing Ipratropium/Albuterol Neb [Duoneb] 3 ml IH [id number] 30 Days Cefdinir [Omnicef] 300 mg PO BID #14 capsule Losartan [Cozaar] 25 mg PO DAILY #30 tablet PredniSONE 10 mg PO DAILY #63 tablet Home Medications: Albuterol Sulfate [Albuterol Inhaler] 2 puff IH Q4HR PRN 03/16/16 [History] Amlodipine Besylate 10 mg PO DAILY 03/16/16 [History] Azelastine 0.1% Nasal [place] [Astelin] 1 spray NS BID 03/16/16 [History] Budesonide/Formoterol 160/4.5 [Symbicort 160/4.5] 2 puff IH BIDR 03/16/16 [ History] Cetirizine HCl [Zyrtec] 10 mg PO DAILY 03/16/16 [History] ClonazePAM [Klonopin] 1 mg PO BID PRN 03/16/16 [History] Docusate [Colace] 300 mg PO BID PRN 03/16/16 [History] Ergocalciferol (VITAMIN D2) [Vitamin D] 400 unit PO DAILY 03/16/16 [History] Esomeprazole Magnesium [Nexium] 40 mg PO BID 03/16/16 [History] Fluticasone Propionate Nasal [Flonase] 100 mcg NS DAILY 03/16/16 [History] Ketoconazole Shampoo [Nizoral Shampoo] 1 appl TP 3XW 03/16/16 [History] Polyethylene Glycol 3350 [MiraLAX] 17 gm PO DAILY 03/16/16 [History] Psyllium Seed (with Sugar) [Metamucil Powder] 1 each PO BID 03/16/16 [History] Roflumilast [Daliresp] 500 mcg PO DAILY 03/16/16 [History] Sodium Chloride [[place] Saline] 1 spray NS BID PRN 03/16/16 [History] Albuterol Neb [Proventil Neb] 2.5 mg IH Q2-4H PRN 09/21/16 [History] Metoprolol [Lopressor] 12.5 mg PO BID #30 tablet 09/30/16 [Rx] Montelukast [Singulair] 10 mg PO HS #30 tablet 09/30/16 [Rx] Metoclopramide [Reglan] 10 mg PO ACHS 11/03/16 [History] Umeclidinium [place] [Incruse Ellipta] 62.5 mcg IH DAILY 11/03/16 [History] Aspirin [Lo-Dose Aspirin EC] 81 mg PO DAILY #30 tablet. 11/05/16 [Rx] Oxygen 3 l .ROUTE AD 11/20/16 [History] Ciprofloxacin OPTH Soln [Ciloxan OPTH Soln] 2 drop LEFT EYE Q4HR #1 bottle 11/28 [Rx] Ciprofloxacin/Dex *EAR* Susp [Ciprodex *EAR* Susp] 4 drop BOTH EARS BID #2 bottle 11/28/16 [Rx] GuaiFENesin/Dextromethorphan [Robitussin/Dm] 10 ml PO Q6HR 14 Days 11/28/16 [Rx] Albuterol Neb [Proventil Neb] 2.5 mg IH [id number] PRN 30 Days 12/10/16 [Rx] Cefdinir [Omnicef] 300 mg PO BID #14 capsule 12/10/16 [Rx] Furosemide [Lasix] 10 mg PO DAILY #60 tablet 12/10/16 [Rx] Ipratropium/Albuterol Neb [Duoneb] 3 ml IH [id number] 30 Days 12/10/16 [Rx] Losartan [Cozaar] 25 mg PO DAILY #30 tablet 12/10/16 [Rx] PredniSONE 10 mg PO DAILY #63 tablet 12/10/16 [Rx] Allergies/Adverse Reactions: Allergies morphine Allergy (Verified 09/17/16 08:27) Difficulty Breathing sulfamethoxazole [From Bactrim] Allergy (Verified 12/04/16 09:24) Hives trimethoprim [From Bactrim] Allergy (Verified 12/04/16 09:24) Hives codeine Adverse Reaction (Verified 03/16/16 17:11) Nausea Date of admission: 12/06/16 13:22 Primary care physician: Bryce Madrid Consults: 12/07/16 09:26 Consult to Respiratory Therapy [CONS] Routine Reason for Consult: Induced sputum culture Call Completed: No Discharging clinician: Aiden Marsh Anticipated date of discharge: 12/10/16 - Patient Status Disposition: Home, Self-Care Condition: Good Functional capacity at discharge: independent ambulation Overall status at discharge: patient is progressing back to baseline - Discharge Instructions Instructions: Albuterol (By breathing), Prednisone (By mouth), Losartan (By mouth), Ipratropium/Albuterol (By breathing), Cefdinir (By mouth), Influenza (DC ), Chronic Obstructive Pulmonary Disease (DC) Follow Up With: Bryce Jones DO [Primary Care Provider] - 12/17/16 2:00 pm - Diet and Activity Activity: increase activity as tolerated Diet: diabetic diet Hospital course: Mr. Herring is a 61 year old male who presented to [facility] on with episode of severe dyspnea. Patient states that prior to admission, he awoke from sleep with severe dyspnea. He awoke and then "passed out on his bed". Upon waking, he called EMS and was found "passed out on his couch" when EMS arrived. Patient was admitted for Acute and chronic respiratory failure with hypoxia. During the hospital stay, he was found to have Influenza B, Acute sinusitis ( visualized on CT sinuses), COPD exacerbation. Patient is clinically improved following treatment with Oseltamivir, Omnicef, high-dose steroids, albuterol nebulizers, and duo-nebs. During hospital stay, patient was worked-up and found to be negative for Priscilla's granolomatosis and Pertussis. He was also work-up for Bronchopulmonary aspergillosis. However, the results of Apergillus antibodies, 1,3 whfd-Q-pscfow, and IgE antibodies have not been resulted. Patient will be discharged to home with steroid taper, omnicef, nebulizers and will follow up his family physician on December 17, 2016. - Time Spent with Patient Total time spent providing and/or coordinating discharge services: Greater than 30 minutes (40 minutes including time with patient and coordinating care) - Constitutional Vitals: Temp Pulse Resp BP Pulse Ox 98.0 F 88 17 167/88 100 12/10/16 07:31 12/10/16 07:31 12/10/16 07:31 12/10/16 07:31 12/10/16 08:55 General appearance: Present: A&O X 3, morbidly obese, pleasant, no acute distress, answers questions appropriately <Aiden Marsh - Last Filed: 12/10/16 17:57> Date of Encounter: 12/10/16 Date of admission: 12/06/16 13:22 Primary care physician: Bryce Madrid Consults: 12/07/16 09:26 Consult to Respiratory Therapy [CONS] Routine Reason for Consult: Induced sputum culture Call Completed: No Hospital course: Mr. Herring is a 61 year old male - Time Spent with Patient Total time spent providing and/or coordinating discharge services: - Constitutional Vitals: Temp Pulse Resp BP Pulse Ox 97.6 F 82 17 164/72 94 L 12/10/16 11:07 12/10/16 11:07 12/10/16 11:07 12/10/16 11:07 12/10/16 11:07 - Attending Attestation I examined this patient and my medical decision-making was reviewed with the [employer]/PA/Advanced Practice Nurse/Resident Physician. I agree with the documented findings, disposition and treatment plan as described except to the extent set forth below. Patient with influenza B, COPD exacerbation. Continue with therapy for his COPD. Tapering dose of steroids. Follow with primary care physician.
[2016-12-10 11:08] VITALS: BP 164/72
[2016-12-10] MEDS: (Umeclidinium Bromide [Incruse Ellipta] 62.5 MCG) IH SCH (11:31)
[2016-12-10] MEDS: (Roflumilast [Daliresp] 500 MCG) PO SCH (11:31)
[2016-12-10] MEDS: Acetaminophen 325 MG TABLET PO PRN (12:28)
[2016-12-10 23:42] LABS: A.galactomannan Ag Index 0.05
[2016-12-13 07:57] LABS: Aspergillus fumigatus IgE <0.10 kU/L (<=0.34); Immunoglobulin E 29 kU/L (<=214)
== END 2016-12-10 16:08 | disposition home or self-care (01) | DRG 189 ==
LOC: EMEROO 05:11 → 3BNU 05:11 → SUATTDRO 09:11 → 3BNU 09:43
PROVIDERS: ADMIT Internal Medicine; ATTEND Internal Medicine

== ENCOUNTER 2016-12-21 00:35 | Inpatient (IN) ==
[2016-12-21] MEDS ORDERED: Ketorolac 30 MG/ML VIAL IVP ONE (00:50)
[2016-12-21] MEDS ORDERED: Ipratropium/Albuterol Neb 3 ML IH ONE (00:53)
[2016-12-21] MEDS ORDERED: 0.9 % Sodium Chloride 1,000 ML IVC ONE (00:53)
[2016-12-21] MEDS ORDERED: Ipratropium/Albuterol Neb 3 ML ONE (01:00)
[2016-12-21 01:05] LABS: Basophils # 0.1 K/mcL (0.0-0.2); Basophils % 0.4 %; Eosinophils # 0.1 K/mcL (0.0-0.6); Eosinophils % 0.8 %; Hemoglobin 13.1 g/dL (12.9-16.9); Immature Granulocytes % 2.5 % (0-4); Immature Platelets 2.2 % (1.1-6.1); Lymphocytes # 1.3 K/mcL (0.6-4.6); Lymphocytes % 7.2 %; Mean Corpuscular Hemoglobin 27.1 pg (28.0-33.3); Mean Corpuscular Volume 84.7 fL (83.0-100.0); Mean Platelet Volume 8.7 fL (9.4-12.4); Monocytes # 1.1 K/mcL (0.0-1.3); Neutrophils # 14.9 K/mcL (1.6-8.9); Platelet Count 283 K/mcL (140-400); Red Blood Count 4.84 M/mcL (4.19-5.50); Red Cell Distribution Width 17.6 % (11.5-14.5); Segmented Neutrophils % 83.1 %
--- NOTE | 2016-12-21 01:12 | Emergency Department Note ---
Disposition Clinical Impression: Small bowel obstruction due to adhesions GI bleed Qualifiers: GI bleed type/associated pathology: unspecified gastrointestinal hemorrhage type Qualified Code(s): K92.2 - Gastrointestinal hemorrhage, unspecified Disposition: Admitted As Inpatient Condition: Good Time of Disposition: 02:44 Abdominal Pain HPI - General Chief Complaint: ED Abdominal Pain Stated Complaint: ABD Pain Time Seen by Provider: 12/21/16 00:48 Source: patient, EMS Limitations: no limitations Nursing Notes Reviewed: Yes Vital Signs Reviewed: Yes - History of Present Illness HPI Narrative: 61-year-old male history of hypertension, diabete, and COPD on 3 L home oxygenation resents the ED with abdominal pain. This occurred at 2100 after eating a sub and fries. Describes sharp pain around the umbilicus that is now more diffuse. He has a history of constipation. Reports he goes about 2 to 3 times a day. He takes a stool softener to help. He has had a history of bowel obstructions he reports, his surgeon is Dr. Yao. He reports nausea without any vomiting. Denies any chest pain or shortness of breath. He has noticed bright red blood in his stool the past 3 days but has resolved today. Denies any lightheadedness or feelings of passing out. History of a ventral hernia repair, appendix and gallbladder are still there. Pain Scale: 9 - Related Data Home Medications Medication Instructions Recorded Confirmed Albuterol Sulfate [Albuterol 2 puff IH Q4HR PRN 03/16/16 12/04/16 Inhaler] Amlodipine Besylate 10 mg PO DAILY 03/16/16 12/04/16 Azelastine 0.1% Nasal [place] 1 spray NS BID 03/16/16 12/04/16 [Astelin] Budesonide/Formoterol 160/4.5 2 puff IH BIDR 03/16/16 12/04/16 [Symbicort 160/4.5] Cetirizine HCl [Zyrtec] 10 mg PO DAILY 03/16/16 12/04/16 ClonazePAM [Klonopin] 1 mg PO BID PRN 03/16/16 12/04/16 Docusate [Colace] 300 mg PO BID PRN 03/16/16 12/04/16 Ergocalciferol (VITAMIN D2) 400 unit PO DAILY 03/16/16 12/04/16 [Vitamin D] Esomeprazole Magnesium [Nexium] 40 mg PO BID 03/16/16 12/04/16 Fluticasone Propionate Nasal 100 mcg NS DAILY 03/16/16 12/04/16 [Flonase] Ketoconazole Shampoo [Nizoral 1 appl TP 3XW 03/16/16 12/04/16 Shampoo] Polyethylene Glycol 3350 [MiraLAX] 17 gm PO DAILY 03/16/16 12/04/16 Psyllium Seed (with Sugar) 1 each PO BID 03/16/16 12/04/16 [Metamucil Powder] Roflumilast [Daliresp] 500 mcg PO DAILY 03/16/16 12/04/16 Sodium Chloride [[place] Saline] 1 spray NS BID PRN 03/16/16 12/04/16 Albuterol Neb [Proventil Neb] 2.5 mg IH Q2-4H PRN 09/21/16 12/04/16 Metoclopramide [Reglan] 10 mg PO ACHS 11/03/16 12/04/16 Umeclidinium [place] [Incruse 62.5 mcg IH DAILY 11/03/16 12/04/16 Ellipta] Oxygen 3 l .ROUTE AD 11/20/16 12/04/16 Previous Rx's Medication Instructions Recorded Metoprolol [Lopressor] 12.5 mg PO BID #30 tablet 09/30/16 Montelukast [Singulair] 10 mg PO HS #30 tablet 09/30/16 Aspirin [Lo-Dose Aspirin EC] 81 mg PO DAILY #30 tablet. 11/05/16 Ciprofloxacin OPTH Soln [Ciloxan 2 drop LEFT EYE Q4HR #1 bottle 11/28/16 OPTH Soln] Ciprofloxacin/Dex *EAR* Susp 4 drop BOTH EARS BID #2 bottle 11/28/16 [Ciprodex *EAR* Susp] GuaiFENesin/Dextromethorphan 10 ml PO Q6HR 14 Days 11/28/16 [Robitussin/Dm] Albuterol Neb [Proventil Neb] 2.5 mg IH [id number] PRN 30 Days 12/10/16 Cefdinir [Omnicef] 300 mg PO BID #14 capsule 12/10/16 Furosemide [Lasix] 10 mg PO DAILY #60 tablet 12/10/16 Ipratropium/Albuterol Neb [Duoneb] 3 ml IH [id number] 30 Days 12/10/16 Losartan [Cozaar] 25 mg PO DAILY #30 tablet 12/10/16 PredniSONE 10 mg PO DAILY #63 tablet 12/10/16 Allergies Allergy/AdvReac Type Severity Reaction Status Date / Time morphine Allergy Difficulty Verified 12/21/16 00:54 Breathing sulfamethoxazole Allergy Hives Verified 12/21/16 00:54 [From Bactrim] trimethoprim [From Bactrim] Allergy Hives Verified 12/21/16 00:54 codeine AdvReac Nausea Verified 12/21/16 00:54 All systems ED: reviewed and negative except as stated. Constitutional: Denies: fever, chills Cardiovascular: Denies: chest pain Respiratory: Denies: cough, dyspnea Gastrointestinal: Reports: abdominal pain, nausea, constipation, hematochezia. Denies: vomiting, diarrhea, melena Genitourinary: Denies: urgency, dysuria Integumentary: Denies: rash, abrasion Abdominal Pain PMH - Past Medical History Medical history: Reports: COPD, diabetes, GERD, hypertension Male Surgical History: Reports: herniorrhaphy, other Psychiatric history: Reports: anxiety, depression - Social History Smoking status: Former smoker Alcohol use: Reports: rarely Drug use: Reports: none Physical Exam - General Limitations: no limitations General appearance: alert, in no apparent distress - Head Head exam: atraumatic, normocephalic, normal inspection - Eye Eye exam: Present: normal appearance, PERRL, EOMI - ENT ENT exam: normal exam, normal oropharynx, mucous membranes moist - Neck Neck exam: Present: normal inspection, full ROM, trachea midline - Chest Chest inspection: Present: normal inspection, symmetric chest wall rise. Absent : tenderness, rash - Respiratory Respiratory exam: Present: normal lung sounds bilaterally, wheezes - Expanded Respiratory Exam Location: wheezes: Left, Right - Cardiovascular Cardiovascular exam: Present: regular rate, normal rhythm, normal heart sounds. Absent: systolic murmur, diastolic murmur - Abdominal Exam Abdominal exam: Present: tenderness (unable to perform a good exam due to body habitus), distention, normal bowel sounds, scar (hernia repair). Absent: guarding, rebound, rigidity, Friend's sign, Rovsing's sign, tenderness at [place]Bur[place]'s Point Abdominal tenderness: Present: diffuse - Rectal Exam Rectal exam: Present: normal inspection, normal rectal tone, heme (-) stool, hemorrhoids (internal). Absent: black stool, bloody stool - Neurological Exam Neurological exam: Present: alert, oriented X3 - Psychiatric Psychiatric exam: Present: normal affect, normal mood - Skin Skin exam: Present: warm, dry, intact, normal color Course Course Narrative: 61-year-old male history of small bowel obstruction presents the ED with abdominal pain. He began experiencing sudden abdominal pain earlier tonight that is now more diffuse. Reports episode of nausea with belching but no vomiting. Abdomen is distended but unable to get a good exam due to body habitus. There is no peritoneal signs, rigidity or guarding. Rectal exam shows good tone and hemorrhoids without bloody stool. Hemoccult test sent for testing. Lungs are wheezing bilaterally. Duonebs ordered. Basic labs and CT of the abdomen and pelvis with IV contrast. Disposition pending images and labs. - Reevaluation(s) Reevaluation #1: CT of the abdomen and pelvis reveals small bowel traction with the transition point. No signs of perforation. His stool Hemoccult came back positive. Hemoglobin is stable 13. He has a leukocytosis of 17.9. Time: 02:34 Reevaluation #2: He complains of discomfort. Takes Diluadid without issues in the past. KUB shows proper placement of NG tube. Abdomen/Pelvis CT 12/21/16 00:52 IMPRESSION: 1. Partial small bowel obstruction with transition point in the distal jejunum suspected to be due to underlying adhesion. There is no evidence of pneumatosis or perforation. 2. No other significant findings are detected in the abdomen or pelvis. D/ / Bhupinder Lozoya MD / Bhupinder Lozoya MD Interpreting Provider: Bhupinder Lozoya MD X-Ray 12/21/16 03:36 IMPRESSION: NGT confirmed in the lumen of the stomach. D/ / Bhupinder Lozoya MD / Bhupinder Lozoya MD Interpreting Provider: Bhupinder Lozoya MD Time: 04:11 - Consultations Consultation #1: Spoke with Dr. Lindquist, wish to admit to hospitalist. Will see in the morning. NG tube before admission to floor. Time: 02:34 Consultation #2: Spoke with on-call hospitalist Dr. Leyva, ok to admit for partial SBO and GI bleed with positive hemoccult. No further orders at this time Time: 02:46 Vital Signs Temperature 98.7 F 12/21/16 00:44 Pulse Rate 113 12/21/16 00:44 Respiratory Rate 22 12/21/16 00:44 Blood Pressure 154/96 12/21/16 00:44 O2 Sat by Pulse Oximetry 96 12/21/16 00:44 Temperature 97.9 F 12/21/16 04:32 Pulse Rate 98 12/21/16 04:32 Respiratory Rate 18 12/21/16 04:32 Blood Pressure 165/91 12/21/16 04:32 O2 Sat by Pulse Oximetry 95 12/21/16 04:56 Oxygen Delivery Oxygen Delivery Nasal Cannula Abdominal Pain - Medical Records Medical records reviewed: Yes I reviewed the patient's medical records. - Lab Data Lab results reviewed: Yes I reviewed the patient's lab results. Result diagrams: 12/21/16 00:59 12/21/16 00:59 Lab Results 12/21/16 12/21/16 12/21/16 Range/Units 00:46 00:59 00:59 WBC 17.9 H (4.3-11.1) K/mcL RBC 4.84 (4.19-5.50) M/mcL Hgb 13.1 (12.9-16.9) g/dL Hct 41.0 (37.5-50.1) % MCV 84.7 (83.0-100.0) fL MCH 27.1 L (28.0-33.3) pg MCHC 32.0 (31.6-35.5) g/dL RDW 17.6 H (11.5-14.5) % Plt Count 283 (140-400) K/mcL MPV 8.7 L (9.4-12.4) fL Immature Gran % 2.5 (0-4) % Seg Neutrophils % 83.1 % Lymphocytes % 7.2 % Monocytes % 6.0 % Eosinophils % 0.8 % Basophils % 0.4 % Neutrophils # 14.9 H (1.6-8.9) K/mcL Lymphocytes # 1.3 (0.6-4.6) K/mcL Monocytes # 1.1 (0.0-1.3) K/mcL Eosinophils # 0.1 (0.0-0.6) K/mcL Basophils # 0.1 (0.0-0.2) K/mcL Immature Plt Fraction 2.2 (1.1-6.1) % Sodium 139 (136-145) mEq/L Potassium 4.3 (3.5-4.5) mEq/L Chloride 104 (98-109) mEq/L Carbon Dioxide 24 (19-29) mEq/L BUN 24 (8-26) mg/dL Creatinine 1.01 (0.72-1.25) mg/dL Est GFR ( Amer) > 60 (> 60) Est GFR (Non-Af Amer) > 60 (> 60) BUN/Creatinine Ratio 24 (6-26) Glucose 155 H (70-99) mg/dL Calculated Osmolality 295 (280-300) Calcium 9.6 (8.6-10.8) mg/dL Total Bilirubin 0.4 (0.2-1.2) mg/dL Direct Bilirubin 0.1 (0.0-0.5) mg/dL Indirect Bilirubin 0.3 (0.0-1.2) mg/dL AST 13 (5-34) Units/L ALT 33 (0-55) Units/L Alkaline Phosphatase 59 (38-126) Units/L Serum Total Protein 6.6 (6.0-8.3) g/dL Albumin 3.3 L (3.5-5.0) g/dL Globulin 3.3 (2.4-3.5) g/dL Albumin/Globulin Ratio 1.0 L (1.1-2.2) Lipase 45 (8-78) Units/L Stool Occult Blood Positive A (Negative) - Radiology Data Radiology results reviewed: Yes I reviewed the patient's radiology results. Abdomen/Pelvis CT 12/21/16 00:52 IMPRESSION: 1. Partial small bowel obstruction with transition point in the distal jejunum suspected to be due to underlying adhesion. There is no evidence of pneumatosis or perforation. 2. No other significant findings are detected in the abdomen or pelvis. D/ / Bhupinder Lozoya MD / Bhupinder Lozoya MD Interpreting Provider: Bhupinder Lozoya MD Attestation Statement - Attestation Attestation: Dr. Huerta note: Patient was seen in conjunction with resident : Please see history for complete documentation. I placed an [id number] time with the patient and I agree with the patient's treatment and disposition. CT scan results reviewed. Pain has only been in this evening. Admitted with improved pain. Nonsurgical abdomen at this time.
[2016-12-21 01:19] LABS: Alanine Aminotransferase 33 Units/L (0-55); Albumin 3.3 g/dL (3.5-5.0); Alkaline Phosphatase 59 Units/L (38-126); Aspartate Amino Transferase 13 Units/L (5-34); BUN/Creatinine Ratio 24 (6-26); Bilirubin,Direct 0.1 mg/dL (0.0-0.5); Bilirubin,Indirect 0.3 mg/dL (0.0-1.2); Bilirubin,Total 0.4 mg/dL (0.2-1.2); Blood Urea Nitrogen 24 mg/dL (8-26); Calcium 9.6 mg/dL (8.6-10.8); Carbon Dioxide 24 mEq/L (19-29); Chloride 104 mEq/L (98-109); Globulin 3.3 g/dL (2.4-3.5); Glucose 155 mg/dL (70-99); Lipase 45 Units/L (8-78); Osmolality,Calculated 295 (280-300); Potassium 4.3 mEq/L (3.5-4.5); Sodium 139 mEq/L (136-145); Total Protein 6.6 g/dL (6.0-8.3); eGFR For African Americans > 60 (> 60); eGFR For Non-African Americans > 60 (> 60)
[2016-12-21] MEDS ORDERED: *HR* HYDROmorphone (PF) 1 MG/ML SYRINGE IVP ONE (03:37)
[2016-12-21 03:50] LABS: Bilirubin,Urine Negative (Negative); Blood,Urine Trace (Negative); Clarity,Urine Clear (Clear); Color,Urine Yellow (Yellow); Glucose,Urine (UA) Normal (Normal); Ketones,Urine Negative (Negative); Leukocyte Esterase,Urine Negative (Negative); Nitrite,Urine Negative (Negative); Protein,Urine Trace mg/dL (Neg-Trace); Specific Gravity,Urine > 1.030 (1.010-1.025); Urobilinogen,Urine Normal (Normal)
[2016-12-21 03:52] LABS: Bacteria,Urine None Seen per hpf (None-Few); Squamous Epithelial Cell,Urine Many per lpf (None-Few); WBC,Urine 0-3 per hpf (0-3)
[2016-12-21 04:03] LABS: Hyaline Casts,Urine None Seen per lpf (None-Few)
--- NOTE | 2016-12-21 05:02 | Internal Med History&Physical ---
Date of Encounter: 12/21/16 Time of Encounter: 05:00 Assessment and Plan (1) Small bowel obstruction due to adhesions Current visit: Yes Status: Acute CT scan of abdomen and pelvis reported partial small bowel obstruction with transition point in the distal jejunum suspect to be due to underlying adhesions. Patient has NG tube in place, with intermittent suction. Pain relief, IV fluids. Surgical consultation (2) Leukocytosis Current visit: Yes Status: Acute Likely secondary to small bowel obstruction. Monitor WBC count Qualifiers: Leukocytosis type: unspecified Qualified Code(s): D72.829 - Elevated white blood cell count, unspecified (3) Chronic respiratory failure Current visit: Yes Status: Chronic Continue supplemental oxygen Qualifiers: Respiratory failure complication: hypoxia Qualified Code(s): J96.11 - Chronic respiratory failure with hypoxia (4) COPD (chronic obstructive pulmonary disease) Current visit: Yes Status: Chronic Continue bronchodilators. Will obtain CXR, as the pt continues to have cough with expectoration Qualifiers: COPD type: unspecified COPD Qualified Code(s): J44.9 - Chronic obstructive pulmonary disease, unspecified (5) Morbid obesity Current visit: Yes Status: Chronic Qualifiers: Obesity type: unspecified obesity type Qualified Code(s): E66.01 - Morbid ( severe) obesity due to excess calories (6) DVT prophylaxis Current visit: Yes Status: Acute Heparin Internal Medicine - H&P: HPI Chief complaint: Abdominal pain Admitted From: Emergency Dept Plans for Post Hospital Care: Home History of present illness: Mr. Herring is a 61 year old male with past medical history significant for ventral hernia repair, prior history of bowel obstruction, hypertension, diabetes, COPD, Chronic respiratory failure on 3 L home oxygenation - resents the ER with abdominal pain. Pain started about 21:00, sharp pain around the umbilicus that is now more diffuse. He reports nausea without any vomiting. His last bowel movement was yesterday morning. He is not passing gas. He apparently noticed bright red blood in his stool the past 3 days but has resolved today. He reports cough with yellowish expectoration, which is going on since September 2016, after he had pneumonia. He denies chest pain. He feels hot but no objective fever. He denies dysuria or hematuria. He was evaluated in the emergency department and imaging showed small bowel obstruction. NG tube was placed and admitted to the hospitalist service. ER provider discussed with surgeon Dr Lindquist. Past Med Surg Social Fam HX - Past Medical History Medical history: COPD, diabetes, GERD, hypertension Psychiatric history: anxiety, depression - Past Surgical History Surgical History: herniorrhaphy, other - Social History Smoking Status: Former smoker Smokeless Tobacco Status: No Alcohol use: rarely Drug use: none - Family History Father Family Member Ethnicity: Non- Living Status: Hx Family Cardiac Disorders: No Hx Family Respiratory Disorders: No Hx Family Cancer: Yes (pancreatic) Hx Family GI Disorders: No Hx Family Endocrine Disorder: Yes Hx Family Neuromuscular Disorders: No Hx Family Neurologic Disorders: No Hx Family HEENT Disorders: No Hx Family Autoimmune Disorders: No Mother History Unknown: Yes Adopted: [place]: kacey herring Family Member Ethnicity: Non- Living Status: Age at : 63 Cause of : heart attack Hx Family Cardiac Disorders: Yes Hx Family Respiratory Disorders: Yes Hx Family Cancer: Yes (lung cancer) Hx Family GI Disorders: No Hx Family Endocrine Disorder: No Hx Family Neuromuscular Disorders: No Hx Family Neurologic Disorders: No Hx Family HEENT Disorders: No Hx Family Autoimmune Disorders: No Sister Living Status: Hx Family Cardiac Disorders: Yes Hx Family Respiratory Disorders: Yes Hx Family Cancer: No Hx Family GI Disorders: No Hx Family Endocrine Disorder: No Hx Family Neuromuscular Disorders: No Hx Family Neurologic Disorders: No Hx Family HEENT Disorders: No Hx Family Autoimmune Disorders: No Internal Medicine - H&P: Meds Albuterol Sulfate [Albuterol Inhaler] 2 puff IH Q4HR PRN 03/16/16 [History] Amlodipine Besylate 10 mg PO DAILY 03/16/16 [History] Azelastine 0.1% Nasal [place] [Astelin] 1 spray NS BID 03/16/16 [History] Budesonide/Formoterol 160/4.5 [Symbicort 160/4.5] 2 puff IH BIDR 03/16/16 [ History] Cetirizine HCl [Zyrtec] 10 mg PO DAILY 03/16/16 [History] ClonazePAM [Klonopin] 1 mg PO BID PRN 03/16/16 [History] Docusate [Colace] 300 mg PO BID PRN 03/16/16 [History] Ergocalciferol (VITAMIN D2) [Vitamin D] 400 unit PO DAILY 03/16/16 [History] Esomeprazole Magnesium [Nexium] 40 mg PO BID 03/16/16 [History] Fluticasone Propionate Nasal [Flonase] 100 mcg NS DAILY 03/16/16 [History] Ketoconazole Shampoo [Nizoral Shampoo] 1 appl TP 3XW 03/16/16 [History] Polyethylene Glycol 3350 [MiraLAX] 17 gm PO DAILY 03/16/16 [History] Psyllium Seed (with Sugar) [Metamucil Powder] 1 each PO BID 03/16/16 [History] Roflumilast [Daliresp] 500 mcg PO DAILY 03/16/16 [History] Sodium Chloride [[place] Saline] 1 spray NS BID PRN 03/16/16 [History] Albuterol Neb [Proventil Neb] 2.5 mg IH Q2-4H PRN 09/21/16 [History] Metoprolol [Lopressor] 12.5 mg PO BID #30 tablet 09/30/16 [Rx] Montelukast [Singulair] 10 mg PO HS #30 tablet 09/30/16 [Rx] Metoclopramide [Reglan] 10 mg PO ACHS 11/03/16 [History] Umeclidinium [place] [Incruse Ellipta] 62.5 mcg IH DAILY 11/03/16 [History] Aspirin [Lo-Dose Aspirin EC] 81 mg PO DAILY #30 tablet. 11/05/16 [Rx] Oxygen 3 l .ROUTE AD 11/20/16 [History] Ciprofloxacin OPTH Soln [Ciloxan OPTH Soln] 2 drop LEFT EYE Q4HR #1 bottle 11/28 [Rx] Ciprofloxacin/Dex *EAR* Susp [Ciprodex *EAR* Susp] 4 drop BOTH EARS BID #2 bottle 11/28/16 [Rx] GuaiFENesin/Dextromethorphan [Robitussin/Dm] 10 ml PO Q6HR 14 Days 11/28/16 [Rx] Albuterol Neb [Proventil Neb] 2.5 mg IH [id number] PRN 30 Days 12/10/16 [Rx] Cefdinir [Omnicef] 300 mg PO BID #14 capsule 12/10/16 [Rx] Furosemide [Lasix] 10 mg PO DAILY #60 tablet 12/10/16 [Rx] Ipratropium/Albuterol Neb [Duoneb] 3 ml IH [id number] 30 Days 12/10/16 [Rx] Losartan [Cozaar] 25 mg PO DAILY #30 tablet 12/10/16 [Rx] PredniSONE 10 mg PO DAILY #63 tablet 12/10/16 [Rx] Allergies morphine Allergy (Verified 12/21/16 00:54) Difficulty Breathing sulfamethoxazole [From Bactrim] Allergy (Verified 12/21/16 00:54) Hives trimethoprim [From Bactrim] Allergy (Verified 12/21/16 00:54) Hives codeine Adverse Reaction (Verified 12/21/16 00:54) Nausea All Systems PM: A 10-system review of systems was performed and is negative for pertinent findings except as documented above in the HPI. - Constitutional Vitals: Temp Pulse Resp BP Pulse Ox 97.9 F 98 18 165/91 95 12/21/16 04:32 12/21/16 04:32 12/21/16 04:32 12/21/16 04:32 12/21/16 04:32 Exam: General: In mild distress at the time of my evaluation HEENT: Oral mucosa is moist. No conjunctival palor or scleral icterus. NG tube in place Neck: No obvious neck swellings Lungs: B/L wheeze present Cardiac: Regular rate and rhythm. No significant murmurs Abdomen: Distended; Diffuse tenderness present. Bowel sounds present. Midline post surgical scar present Neurological: Alert and oriented. No gross localizing deficits Psych: Not aggressive or agitated Extremities: no significant leg edema Skin: No generalized rash Internal Med - H&P Results - Labs CBC & Chem 7: 12/21/16 00:59 12/21/16 00:59 Labs: Urine 12/21/16 Range/Units 03:40 Urine Color Yellow (Yellow) Urine Clarity Clear (Clear) Urine pH 6.0 (5.0-8.0) pH Units Ur Specific [place] > 1.030 H (1.010-1.025) Urine Protein Trace (Neg-Trace) mg/dL Urine Glucose (UA) Normal (Normal) mg/dL - Impressions ITS Impressions Abdomen/Pelvis CT 12/21/16 00:52 IMPRESSION: 1. Partial small bowel obstruction with transition point in the distal jejunum suspected to be due to underlying adhesion. There is no evidence of pneumatosis or perforation. 2. No other significant findings are detected in the abdomen or pelvis. D/ / Bhupinder Lozoya MD / Bhupinder Lozoya MD Interpreting Provider: Bhupinder Lozoya MD X-Ray 12/21/16 03:36 IMPRESSION: NGT confirmed in the lumen of the stomach. D/ / Bhupinder Lozoya MD / Bhupinder Lozoya MD Interpreting Provider: Bhupinder Lozoya MD
[2016-12-21] MEDS ORDERED: Naloxone 0.4 MG/ML INJ IVP PRN (05:40)
[2016-12-21] MEDS ORDERED: *HR* HYDROmorphone (PF) 1 MG/ML SYRINGE IVP PRN (05:44)
[2016-12-21] MEDS: 0.9 % Sodium Chloride 1,000 ML IVC SCH ×2 (06:02→18:42)
[2016-12-21] MEDS: *HR* HYDROmorphone (PF) 1 MG/ML SYRINGE IVP PRN ×6 (06:03→21:47)
[2016-12-21] MEDS: *HR* Heparin 5,000 UNIT/ML VIAL SQ SCH ×3 (06:22→18:10)
[2016-12-21] MEDS: Pantoprazole 40 MG VIAL IVP SCH ×2 (06:35→08:06)
[2016-12-21] MEDS ORDERED: Albuterol 2.5 MG/3 ML NEBULIZER IH SCH (08:00)
[2016-12-21] MEDS ORDERED: *HR* Morphine 2 MG/ML SYRINGE IVP PRN (08:57)
[2016-12-21] MEDS ORDERED: Pantoprazole 40 MG VIAL IVP SCH (09:00)
[2016-12-21] MEDS: Ondansetron 4 MG/2 ML VIAL IVP PRN ×3 (11:03→21:47)
[2016-12-21] MEDS: Ipratropium/Albuterol Neb 3 ML IH SCH ×4 (11:20→23:14)
--- NOTE | 2016-12-21 11:26 | General Surgery Consult Note ---
<Anaya Dowell - Last Filed: 12/21/16 11:43> Date of Encounter: 12/21/16 Time of Encounter: 11:00 Assessment and Plan (1) Partial small bowel obstruction Current Visit: Yes Status: Acute Conservative measures including: Bowel rest with NG tube to LIWS IV fluids Serial abdominal exams Supportive care/pain control (2) COPD (chronic obstructive pulmonary disease) Current Visit: Yes Status: Chronic Management per medicine service Qualifiers: COPD type: unspecified COPD Qualified Code(s): J44.9 - Chronic obstructive pulmonary disease, unspecified (3) GERD (gastroesophageal reflux disease) Current Visit: No Status: Chronic PPI therapy daily Qualifiers: Esophagitis presence: esophagitis presence not specified Qualified Code(s) : K21.9 - Gastro-esophageal reflux disease without esophagitis (4) HTN (hypertension) Current Visit: No Status: Chronic Hypertensive Add Metoprolol 5ml IV every 6 hours Management per medicine service Qualifiers: Hypertension type: essential hypertension Qualified Code(s): I10 - Essential (primary) hypertension (5) Morbid obesity with BMI of 40.0-44.9, adult Current Visit: No Status: Chronic (6) DVT prophylaxis Current Visit: No Status: Acute Continue heparin 5,000 units SQ every 8 hours History of Present Illness Consult date: 12/21/16 Reason for consult: other (PSBO) Requesting physician: Faisal Tavera History of present illness: Mr. Herring is a 61 year male with multiple comorbidities who presented to the ED last evening with acute onset of abdominal pain. He states that the pain started around his umbilicus and progressively worsened to the point that he felt he needed to present to the ED. He states the pain is generalized at this time and denies any radiating factors. Admits to nausea but denies any vomiting. Admits to bloating He had his last BM yesterday morning. Denies passing any flatus today. Denies any recent fevers/chills. Denies any difficulty with urination. Admits to shortness of breath which is chronic for him. Denies any chest pains. He has had an NG tube placed and states that he has had little relief from the nausea/bloating. He has had a CT scan which shows findings consistent with PSBO. We have been asked to see and evaluate the patient for recommendations. Past Med Surg Social Fam HX - Past Medical History Source: patient, old records reviewed Medical history: cardiomyopathy, COPD (with bronchitis), diabetes, GERD, hypertension, other (Sleep apnea, MRSA infection) Psychiatric history: anxiety, depression - Past Surgical History Surgical History: cataract, herniorrhaphy (ventral and inguinal), other (Bowel reconstruction; EGD; Colonoscopy 2012; right foot skin graft (muscle removed from stomach); heart cath.) - Social History Smoking Status: Former smoker Smokeless Tobacco Status: No Alcohol use: rarely Drug use: none - Family History Father Family Member Ethnicity: Non- Living Status: Age at : 78 Hx Family Cardiac Disorders: No Hx Family Respiratory Disorders: No Hx Family Cancer: Yes (pancreatic) Hx Family GI Disorders: No Hx Family Endocrine Disorder: Yes Hx Family Neuromuscular Disorders: No Hx Family Neurologic Disorders: No Hx Family HEENT Disorders: No Hx Family Autoimmune Disorders: No Mother History Unknown: Yes Adopted: [place]: kacey herring Family Member Ethnicity: Non- Living Status: Age at : 63 Cause of : heart attack Hx Family Cardiac Disorders: Yes Hx Family Respiratory Disorders: Yes Hx Family Cancer: Yes (lung cancer) Hx Family GI Disorders: No Hx Family Endocrine Disorder: No Hx Family Neuromuscular Disorders: No Hx Family Neurologic Disorders: No Hx Family HEENT Disorders: No Hx Family Autoimmune Disorders: No Sister Living Status: Hx Family Cardiac Disorders: Yes Hx Family Respiratory Disorders: Yes Hx Family Cancer: No Hx Family GI Disorders: No Hx Family Endocrine Disorder: No Hx Family Neuromuscular Disorders: No Hx Family Neurologic Disorders: No Hx Family HEENT Disorders: No Hx Family Autoimmune Disorders: No Medications and Allergies Albuterol Sulfate [Albuterol Inhaler] 2 puff IH Q4HR PRN 03/16/16 [History] Amlodipine Besylate 10 mg PO DAILY 03/16/16 [History] Azelastine 0.1% Nasal [place] [Astelin] 1 spray NS BID 03/16/16 [History] Budesonide/Formoterol 160/4.5 [Symbicort 160/4.5] 2 puff IH BIDR 03/16/16 [ History] Cetirizine HCl [Zyrtec] 10 mg PO DAILY 03/16/16 [History] ClonazePAM [Klonopin] 1 mg PO BID PRN 03/16/16 [History] Docusate [Colace] 300 mg PO BID PRN 03/16/16 [History] Ergocalciferol (VITAMIN D2) [Vitamin D] 400 unit PO DAILY 03/16/16 [History] Esomeprazole Magnesium [Nexium] 40 mg PO BID 03/16/16 [History] Fluticasone Propionate Nasal [Flonase] 2 spray NS DAILY 03/16/16 [History] Ketoconazole Shampoo [Nizoral Shampoo] 1 appl TP 3XW 03/16/16 [History] Polyethylene Glycol 3350 [MiraLAX] 17 gm PO DAILY 03/16/16 [History] Psyllium Seed (with Sugar) [Metamucil Powder] 1 each PO BID 03/16/16 [History] Roflumilast [Daliresp] 500 mcg PO DAILY 03/16/16 [History] Sodium Chloride [[place] Saline] 1 spray NS BID PRN 03/16/16 [History] Metoprolol [Lopressor] 12.5 mg PO BID #30 tablet 09/30/16 [Rx] Montelukast [Singulair] 10 mg PO HS #30 tablet 09/30/16 [Rx] Metoclopramide [Reglan] 10 mg PO ACHS 11/03/16 [History] Umeclidinium [place] [Incruse Ellipta] 62.5 mcg IH DAILY 11/03/16 [History] Aspirin [Lo-Dose Aspirin EC] 81 mg PO DAILY #30 tablet. 11/05/16 [Rx] Oxygen 3 l .ROUTE AD 11/20/16 [History] Furosemide [Lasix] 10 mg PO DAILY #60 tablet 12/10/16 [Rx] Ipratropium/Albuterol Neb [Duoneb] 3 ml IH [id number] 30 Days 12/10/16 [Rx] Losartan [Cozaar] 25 mg PO DAILY #30 tablet 12/10/16 [Rx] PredniSONE 10 mg PO DAILY #63 tablet 12/10/16 [Rx] Allergies morphine Allergy (Verified 12/21/16 10:35) Difficulty Breathing sulfamethoxazole [From Bactrim] Allergy (Verified 12/21/16 10:35) Hives trimethoprim [From Bactrim] Allergy (Verified 12/21/16 10:35) Hives codeine Adverse Reaction (Verified 12/21/16 10:35) Nausea Review of Systems All systems PM: reviewed and no additional remarkable complaints except as stated (in the HPI) All systems PM: A 10-system review of systems was performed and is negative for pertinent findings except as documented above in the HPI. General Surgery Exam Initial Vital Signs Temp Pulse Resp BP Pulse Ox 98.7 F 113 22 154/96 96 12/21/16 00:44 12/21/16 00:44 12/21/16 00:44 12/21/16 00:44 12/21/16 00:44 - General physical appearance well developed, well nourished, moderate distress, chronically ill, obese - Eyes normal ocular movement - ENT normal mucosa, atraumatic, normocephalic - Neck trachea midline - Respiratory other (dyspnea at rest; diminished bibasilar breath sounds) wheezing: bilateral - Cardiovascular Cardiovascular exam: Present: RRR - Abdomen Abdomen general surgery: Present: bowel sounds present (minimal, hypoactive), soft, distended, tender, wound (NG tube LIWS with 400ml of yellow drainage noted ) Abdominal Tenderness: Present: diffusely - Integumentary Integumentary general surgery: Present: warm and dry - Neurologic Present: CN 2-12 grossly intact - Psychiatric Psychiatric general surgery: Present: A&Ox3 Exam Initial Vital Signs Temp Pulse Resp BP Pulse Ox 98.7 F 113 22 154/96 96 12/21/16 00:44 12/21/16 00:44 12/21/16 00:44 12/21/16 00:44 12/21/16 00:44 Results - Labs 12/21/16 00:59 12/21/16 00:59 Abnormal lab results WBC 17.9 K/mcL (4.3-11.1) H 12/21/16 00:59 MCH 27.1 pg (28.0-33.3) L 12/21/16 00:59 RDW 17.6 % (11.5-14.5) H 12/21/16 00:59 MPV 8.7 fL (9.4-12.4) L 12/21/16 00:59 Neutrophils # 14.9 K/mcL (1.6-8.9) H 12/21/16 00:59 Glucose 155 mg/dL (70-99) H 12/21/16 00:59 POC Glucose 151 (58-89) H 12/21/16 06:00 Albumin 3.3 g/dL (3.5-5.0) L 12/21/16 00:59 Albumin/Globulin Ratio 1.0 (1.1-2.2) L 12/21/16 00:59 Ur Specific [place] > 1.030 (1.010-1.025) H 12/21/16 03:40 Urine Blood Trace (Negative) H 12/21/16 03:40 Urine Microscopic RBC 5-15 per hpf (0-3) H 12/21/16 03:40 Ur Squamous Epith Cells Many per lpf (None-Few) H 12/21/16 03:40 Stool Occult Blood Positive (Negative) A 12/21/16 00:46 All other labs normal. - Imaging Abdominal x-ray: report reviewed CT scan - abdomen: report reviewed CT scan - pelvis: report reviewed Additional studies: Abdomen/Pelvis CT 12/21/16 00:52 IMPRESSION: 1. Partial small bowel obstruction with transition point in the distal jejunum suspected to be due to underlying adhesion. There is no evidence of pneumatosis or perforation. 2. No other significant findings are detected in the abdomen or pelvis. D/ / Bhupinder Lozoya MD / Bhupinder Lozoya MD Interpreting Provider: Bhupinder Lozoya MD Chest X-Ray 12/21/16 05:51 IMPRESSION: Ground-glass attenuation at the left lung base may represent atelectasis or pleural effusion. Developing pneumonitis cannot be excluded. D/ / Bhupinder Lozoya MD / Bhupinder Lozoya MD Interpreting Provider: Bhupinder Lozoya MD X-Ray 12/21/16 11:05 IMPRESSION: Enteric tube in the stomach with the tip at the level the proximal gastric body abutting the left lateral wall and the side port at the level the proximal gastric body. D/ / Jairo Garcia MD / Jairo Garcia MD Interpreting Provider: Jairo Garcia MD Consult Discharge Plan - Plan Referrals: Bryce Jones DO [Primary Care Provider] - - Attending Attestation I examined this patient and my medical decision-making was reviewed with the CASKET UPHOLSTERER/PA/Advanced Practice Nurse/Resident Physician. I agree with the documented findings, disposition and treatment plan as described except to the extent set forth below. <Jessie Lindquist - Last Filed: 12/21/16 14:29> Assessment and Plan (1) DVT prophylaxis Current Visit: Yes Status: Acute (2) GI bleed Current Visit: Yes Status: Acute Patient had a colonoscopy on October 15 of this year with several tubular adenomas removed. Will monitor hemoglobin Qualifiers: GI bleed type/associated pathology: unspecified gastrointestinal hemorrhage type Qualified Code(s): K92.2 - Gastrointestinal hemorrhage, unspecified (3) Leukocytosis Current Visit: Yes Status: Acute No obvious source for the leukocytosis at this time. Although patient is on prednisone Qualifiers: Leukocytosis type: unspecified Qualified Code(s): D72.829 - Elevated white blood cell count, unspecified (4) Partial small bowel obstruction Current Visit: Yes Status: Acute (5) Morbid obesity Current Visit: Yes Status: Chronic Qualifiers: Obesity type: unspecified obesity type Qualified Code(s): E66.01 - Morbid ( severe) obesity due to excess calories History of Present Illness History of present illness: Patient is a 61-year-old male who yesterday evening approximately 9:00 at night after eating a solid and well for Tuesday started experiencing crampy sharp abdominal pain at the umbilicus. The pain became so severe that he proceeded to the ER. He has had a history of bowel obstruction past. He denies any flatus since last evening. His last bowel movement was yesterday morning and he states it was regular. He has been having bright red blood per rectum from last to yesterday morning and his blood mixed with stool. He states he had a colonoscopy one month ago by Dr. Medina and polyps were found. He is also complaining of nausea but without vomiting. An NG tube was placed in the ER but the patient denies any relief of abdominal distention or discomfort with the NG tube. Review of Systems All systems PM: A 10-system review of systems was performed and is negative for pertinent findings except as documented above in the HPI. General Surgery Exam Initial Vital Signs Temp Pulse Resp BP Pulse Ox 98.7 F 113 22 154/96 96 12/21/16 00:44 12/21/16 00:44 12/21/16 00:44 12/21/16 00:44 12/21/16 00:44 - General physical appearance well nourished, no distress, obese - Eyes PERRL, normal ocular movement - ENT normal mucosa, normocephalic - Neck trachea midline - Respiratory normal expansion, other - Cardiovascular Cardiovascular exam: Present: RRR - Abdomen Abdomen general surgery: Present: bowel sounds present, soft, distended, tender. Absent: guarding, rebound Abdominal Tenderness: Present: diffusely - Integumentary Integumentary general surgery: Present: warm and dry, no abnormal pigmentation - Neurologic Present: CN 2-12 grossly intact - Musculoskeletal Present: normal gait - Psychiatric Psychiatric general surgery: Present: A&Ox3, speech is normal Exam Initial Vital Signs Temp Pulse Resp BP Pulse Ox 98.7 F 113 22 154/96 96 12/21/16 00:44 12/21/16 00:44 12/21/16 00:44 12/21/16 00:44 12/21/16 00:44 Results - Labs 12/21/16 00:59 12/21/16 00:59 Abnormal lab results WBC 17.9 K/mcL (4.3-11.1) H 12/21/16 00:59 MCH 27.1 pg (28.0-33.3) L 12/21/16 00:59 RDW 17.6 % (11.5-14.5) H 12/21/16 00:59 MPV 8.7 fL (9.4-12.4) L 12/21/16 00:59 Neutrophils # 14.9 K/mcL (1.6-8.9) H 12/21/16 00:59 Glucose 155 mg/dL (70-99) H 12/21/16 00:59 POC Glucose 145 (58-89) H 12/21/16 12:32 Albumin 3.3 g/dL (3.5-5.0) L 12/21/16 00:59 Albumin/Globulin Ratio 1.0 (1.1-2.2) L 12/21/16 00:59 Ur Specific [place] > 1.030 (1.010-1.025) H 12/21/16 03:40 Urine Blood Trace (Negative) H 12/21/16 03:40 Urine Microscopic RBC 5-15 per hpf (0-3) H 12/21/16 03:40 Ur Squamous Epith Cells Many per lpf (None-Few) H 12/21/16 03:40 Stool Occult Blood Positive (Negative) A 12/21/16 00:46 All other labs normal. - Imaging Abdominal x-ray: report reviewed, image reviewed CT scan - abdomen: report reviewed, image reviewed CT scan - pelvis: report reviewed, image reviewed - Attending Attestation I examined this patient and my medical decision-making was reviewed with the CASKET UPHOLSTERER/PA/Advanced Practice Nurse/Resident Physician. I agree with the documented findings, disposition and treatment plan as described except to the extent set forth below.
[2016-12-21] MEDS: *HR* Metoprolol 5 MG/5 ML VIAL IVP SCH ×2 (13:33→18:09)
--- NOTE | 2016-12-21 14:20 | Event Note ---
Date of Encounter: 12/21/16 Time of Encounter: 14:04 peter seen at the bedside, c/o nausea and abdominal pain came this morning and admitted for SBO, seen by surgery and s/p NPO and NGT placement, NG on intermittent drainage. denies passing gas,NPO at this time. will continue conservative mgmt with IVF, NPO, serial abdominal exams, anti emetics, analgesics. will follow surgical recommendation.
[2016-12-22] MEDS: *HR* Metoprolol 5 MG/5 ML VIAL IVP SCH ×5 (00:41→23:28)
[2016-12-22] MEDS: *HR* HYDROmorphone (PF) 1 MG/ML SYRINGE IVP PRN ×7 (02:01→23:28)
[2016-12-22] MEDS: Ondansetron 4 MG/2 ML VIAL IVP PRN ×4 (02:01→23:28)
[2016-12-22] MEDS: Ipratropium/Albuterol Neb 3 ML IH SCH ×5 (03:58→20:47)
[2016-12-22 06:01] LABS: Basophils # 0.1 K/mcL (0.0-0.2); Basophils % 0.4 %; Eosinophils # 0.2 K/mcL (0.0-0.6); Eosinophils % 1.1 %; Hematocrit 41.1 % (37.5-50.1); Hemoglobin 12.7 g/dL (12.9-16.9); Immature Granulocytes % 1.8 % (0-4); Lymphocytes # 1.1 K/mcL (0.6-4.6); Lymphocytes % 8.2 %; Mean Corpuscular HGB Conc 30.9 g/dL (31.6-35.5); Mean Corpuscular Hemoglobin 26.7 pg (28.0-33.3); Mean Corpuscular Volume 86.5 fL (83.0-100.0); Mean Platelet Volume 8.8 fL (9.4-12.4); Monocytes % 7.7 %; Neutrophils # 10.9 K/mcL (1.6-8.9); Platelet Count 238 K/mcL (140-400); Red Blood Count 4.75 M/mcL (4.19-5.50); Red Cell Distribution Width 17.9 % (11.5-14.5); Segmented Neutrophils % 80.8 %
[2016-12-22] MEDS: *HR* Heparin 5,000 UNIT/ML VIAL SQ SCH ×3 (06:26→20:48)
[2016-12-22] MEDS: 0.9 % Sodium Chloride 1,000 ML IVC SCH ×2 (06:27→20:49)
[2016-12-22] MEDS ORDERED: 0.9 % Sodium Chloride 1,000 ML IVC SCH (07:58)
[2016-12-22] MEDS ORDERED: *HR* Promethazine 25 MG/ML VIAL IVP PRN (10:00)
[2016-12-22] MEDS ORDERED: Budesonide/Formoterol 160/4.5 MDI IH SCH (10:00)
[2016-12-22] MEDS: Metoclopramide 10 MG/2 ML VIAL IVP PRN ×2 (10:22→20:48)
[2016-12-22] MEDS: Pantoprazole 40 MG VIAL IVP SCH (10:23)
--- NOTE | 2016-12-22 11:39 | General Surgery Progress Note ---
<ErieAnaya Elen - Last Filed: 12/22/16 11:37> Date of Encounter: 12/22/16 Time of Encounter: 11:00 - Assessment and Plan (1) Partial small bowel obstruction Current Visit: Yes Status: Acute Conservative measures including: Bowel rest with NG tube to LIWS IV fluids-decrease to 75ml/hour Serial abdominal exams Supportive care/pain control Patient is a poor surgical candidate- will continue to await resolution with conservative measures (2) COPD (chronic obstructive pulmonary disease) Current Visit: Yes Status: Chronic Management per medicine service Qualifiers: COPD type: unspecified COPD Qualified Code(s): J44.9 - Chronic obstructive pulmonary disease, unspecified (3) GERD (gastroesophageal reflux disease) Current Visit: No Status: Chronic PPI therapy daily Qualifiers: Esophagitis presence: esophagitis presence not specified Qualified Code(s) : K21.9 - Gastro-esophageal reflux disease without esophagitis (4) HTN (hypertension) Current Visit: No Status: Chronic Improved today Continue Metoprolol 5ml IV every 6 hours Management per medicine service Qualifiers: Hypertension type: essential hypertension Qualified Code(s): I10 - Essential (primary) hypertension (5) Morbid obesity with BMI of 40.0-44.9, adult Current Visit: No Status: Chronic (6) DVT prophylaxis Current Visit: No Status: Acute Continue heparin 5,000 units SQ every 8 hours Subjective Patient reports: feels better, still having pain, pain is less, flatus ( yesterday, denies flatus today), no bowel movement, nausea (resolved with medication), shortness of breath (chronic), afebrile Objective Vital Signs - Last 8 Hours Temp Pulse Resp BP Pulse Ox 12/22/16 11:35 18 98 12/22/16 11:30 97.6 F 112 18 126/81 94 L 12/22/16 10:28 18 95 12/22/16 08:15 18 97 12/22/16 07:05 97.6 F 103 18 161/80 93 L 12/22/16 05:16 97.4 F L 114 16 170/80 94 L Intake and Output 12/21/16 12/22/16 12/22/16 23:59 07:59 15:59 Intake Total 1000 / 1000 1000 / 1000 187 / 187 Output Total 475 / 475 775 / 775 350 / 350 Balance 525 / 525 225 / 225 -163 / -163 Intake: IV Fluids 1000 / 1000 1000 / 1000 187 / 187 0.9 % Sodium Chloride 1, 1000 / 1000 1000 / 1000 187 / 187 000 ML @ 80 mls/hr IVC . [id number] ANA Rx#: [id number] Oral 0 / 0 0 / 0 Output: Urine 125 / 125 650 / 650 0 / 0 Gastric Drainage 350 / 350 125 / 125 350 / 350 Other: Meal NPO NPO # Voids 1 # Bowel Movements 0 Weight 137.438 kg Blood Glucose* 111 102 Patient Weight 12/22/16 23:59 Weight 137.438 kg - General physical appearance well developed, well nourished, chronically ill - Eyes normal ocular movement - ENT normal mucosa, atraumatic, normocephalic - Neck Neck exam: trachea midline - Respiratory other (diminished breath sounds bilaterally) wheezing: bilateral - Cardiovascular Cardiovascular exam: Present: tachycardia - Abdomen Abdomen: Present: soft, tender (improved), wound (NG tube to LIWS) Hernia: umbilical - Neurologic CN 2-12 grossly intact - Psychiatric oriented to time, oriented to person, oriented to place, speech is normal, memory intact - Labs 12/22/16 05:17 12/21/16 00:59 Consult Discharge Plan - Plan Referrals: Bryce Jones DO [Primary Care Provider] - - Attending Attestation I examined this patient and my medical decision-making was reviewed with the VENIPUNCTURIST/PA/Advanced Practice Nurse/Resident Physician. I agree with the documented findings, disposition and treatment plan as described except to the extent set forth below. <Jessie Lindquist - Last Filed: 12/22/16 16:08> - Assessment and Plan (1) DVT prophylaxis Current Visit: Yes Status: Acute (2) GI bleed Current Visit: Yes Status: Acute Qualifiers: GI bleed type/associated pathology: unspecified gastrointestinal hemorrhage type Qualified Code(s): K92.2 - Gastrointestinal hemorrhage, unspecified (3) Leukocytosis Current Visit: Yes Status: Acute Improved, monitor, patient is on chronic steroids since September. Qualifiers: Leukocytosis type: unspecified Qualified Code(s): D72.829 - Elevated white blood cell count, unspecified (4) Partial small bowel obstruction Current Visit: Yes Status: Acute Discussed with the patient that he is a poor surgical candidate from his severe relapsing COPD exacerbations, he has been on 10 mg of prednisone since September , he is significantly morbidly obese. We will continue conservative measures at this time as described by the nurse practitioner. (5) Morbid obesity Current Visit: Yes Status: Chronic Qualifiers: Obesity type: unspecified obesity type Qualified Code(s): E66.01 - Morbid ( severe) obesity due to excess calories Subjective Narrative: He is still complaining of abdominal pain primarily at the umbilicus region but it is slightly improved since admission. He is having nausea but without emesis. He has not passed any flatus since yesterday. No fevers chills or night sweats. He does not feel significantly better than when he presented to the hospital. Objective Vital Signs - Last 8 Hours Temp Pulse Resp BP Pulse Ox 12/22/16 15:24 97.8 F 63 18 158/79 95 12/22/16 13:25 97.2 F L 104 18 122/85 93 L 12/22/16 11:35 18 98 12/22/16 11:30 97.6 F 112 18 126/81 94 L 12/22/16 10:28 18 95 12/22/16 08:15 18 97 Intake and Output 12/22/16 12/22/16 12/22/16 07:59 15:59 23:59 Intake Total 1000 / 1000 391 / 391 Output Total 775 / 775 550 / 550 Balance 225 / 225 -159 / -159 Intake: IV Fluids 1000 / 1000 391 / 391 0.9 % Sodium Chloride 1, 1000 / 1000 391 / 391 000 ML @ 80 mls/hr IVC . [id number] ANA Rx#: [id number] Oral 0 / 0 Output: Urine 650 / 650 200 / 200 Gastric Drainage 125 / 125 350 / 350 Other: Meal npo # Voids 1 # Bowel Movements 0 Weight 137.438 kg Blood Glucose* 111 102 Patient Weight 12/22/16 23:59 Weight 137.438 kg - General physical appearance well developed, well nourished, obese - Eyes PERRL, normal ocular movement - ENT atraumatic, normocephalic - Respiratory other wheezing: bilateral - Cardiovascular Cardiovascular exam: Present: tachycardia - Abdomen Abdomen: Present: bowel sounds present, soft, tender Hernia: umbilical - Integumentary no rash, no growths - Neurologic CN 2-12 grossly intact - Psychiatric oriented to time, oriented to person, speech is normal, memory intact - Labs 12/22/16 05:17 12/21/16 00:59 - Attending Attestation I examined this patient and my medical decision-making was reviewed with the VENIPUNCTURIST/PA/Advanced Practice Nurse/Resident Physician. I agree with the documented findings, disposition and treatment plan as described except to the extent set forth below.
[2016-12-22] MEDS ORDERED: Albuterol 2.5 MG/3 ML NEBULIZER IH PRN (14:16)
--- NOTE | 2016-12-22 14:41 | Internal Med Progress Note ---
Date of Encounter: 12/22/16 Time of Encounter: 14:39 - Assessment and plan (1) Small bowel obstruction due to adhesions Current Visit: Yes Status: Acute Assessment and plan: has NGT which is still draining and appears to be clogged once in a while being followed by surgery NPO for now , some Ice chips, to continue conservative management. Patient is not a good surgical candidate. Continue to monitor abdominal exam. keep flushing NGT if no drainage. Have added Reglan for nausea, already on Zofran, also added Phenergan to help with nausea. (2) COPD (chronic obstructive pulmonary disease) Current Visit: Yes Status: Chronic Assessment and plan: Appears to be wheezing. Continue duo nebs as scheduled for now, sats are maintained at 2 L, will continue oxygen titration to maintain sats above 88-92%. Qualifiers: COPD type: unspecified COPD Qualified Code(s): J44.9 - Chronic obstructive pulmonary disease, unspecified (3) Essential hypertension Current Visit: No Status: Chronic Assessment and plan: Blood pressure stable now. Unable to get by mouth meds, is on metoprolol when necessary, will add hydralazine for blood pressure systolic is more than 170. - Time Spent With Patient 25 - 35 minutes - Subjective Interval history: patient at the bedside, admitted for SBO. reports mild abdominal pain but noted that the NG was clamped, still having a lot of NG output. Reports still nausea, noted was that he did pass some gas last night but has not moved his bowels. Still nothing by mouth, surgery following. - Constitutional Vitals: Temp Pulse Resp BP Pulse Ox 97.2 F L 104 18 122/85 93 L 12/22/16 13:25 12/22/16 13:25 12/22/16 13:25 12/22/16 13:25 12/22/16 13:25 General appearance: Present: mild distress, A&O X 3 Exam: HEENT: Oral mucosa is moist. No conjunctival palor or scleral icterus. NG tube in place Neck: No obvious neck swellings Lungs: B/L wheeze present Cardiac: Regular rate and rhythm. No significant murmurs Abdomen: Distended; nontender. Bowel sounds present. Midline post surgical scar present Neurological: Alert and oriented. No gross localizing deficits Psych: Not aggressive or agitated Extremities: no significant leg edema Skin: No generalized rash Internal Medicine: Result - Labs CBC & Chem 7: 12/22/16 05:17 12/21/16 00:59 Labs: Short CBC 12/22/16 Range/Units 05:17 WBC 13.5 H (4.3-11.1) K/mcL Hgb 12.7 L (12.9-16.9) g/dL Hct 41.1 (37.5-50.1) % Plt Count 238 (140-400) K/mcL Neutrophils # 10.9 H (1.6-8.9) K/mcL - Impressions Impressions Chest/Abdomen X-ray 12/22/16 07:00 IMPRESSION: 1. Left basilar opacity, likely atelectasis. 2. Enteric tube tip and side port overlying the gastric body. 3. Single mildly dilated loop of small bowel in the upper abdomen which is nonspecific and may be related to known small bowel obstruction. D/ / 12/22/2016 09:50:04 Kristen Phillips MD / caitlyn Interpreting Provider: Kristen Phillips MD Consult Discharge Plan - Plan Referrals: Bryce Jnoes DO [Primary Care Provider] -
[2016-12-22] MEDS: Chloraseptic Spray 177 ML BOTTLE MM PRN (18:33)
[2016-12-22] MEDS: Budesonide Neb 0.5 MG/2 ML IH SCH (22:05)
[2016-12-23] MEDS: Ipratropium/Albuterol Neb 3 ML IH SCH ×7 (00:47→23:18)
[2016-12-23] MEDS: *HR* HYDROmorphone (PF) 1 MG/ML SYRINGE IVP PRN ×7 (03:50→19:26)
[2016-12-23] MEDS: Ondansetron 4 MG/2 ML VIAL IVP PRN ×4 (03:50→19:26)
[2016-12-23] MEDS: *HR* Heparin 5,000 UNIT/ML VIAL SQ SCH ×3 (05:39→22:09)
[2016-12-23] MEDS: Metoclopramide 10 MG/2 ML VIAL IVP PRN ×3 (05:39→17:20)
[2016-12-23] MEDS: *HR* Metoprolol 5 MG/5 ML VIAL IVP SCH ×3 (05:39→17:16)
[2016-12-23 05:52] LABS: Basophils % 0.2 %; Eosinophils # 0.1 K/mcL (0.0-0.6); Eosinophils % 1.1 %; Hematocrit 40.5 % (37.5-50.1); Hemoglobin 12.7 g/dL (12.9-16.9); Immature Granulocytes % 1.2 % (0-4); Lymphocytes # 1.3 K/mcL (0.6-4.6); Lymphocytes % 12.9 %; Mean Corpuscular HGB Conc 31.4 g/dL (31.6-35.5); Mean Corpuscular Hemoglobin 27.6 pg (28.0-33.3); Mean Platelet Volume 9.2 fL (9.4-12.4); Monocytes % 9.9 %; Neutrophils # 7.5 K/mcL (1.6-8.9); Platelet Count 211 K/mcL (140-400); Red Cell Distribution Width 17.8 % (11.5-14.5); Segmented Neutrophils % 74.7 %
[2016-12-23 06:09] LABS: BUN/Creatinine Ratio 28 (6-26); Blood Urea Nitrogen 28 mg/dL (8-26); Carbon Dioxide 25 mEq/L (19-29); Chloride 105 mEq/L (98-109); Glucose 118 mg/dL (70-99); Osmolality,Calculated 301 (280-300); Potassium 4.1 mEq/L (3.5-4.5); Sodium 142 mEq/L (136-145); eGFR For African Americans > 60 (> 60); eGFR For Non-African Americans > 60 (> 60)
[2016-12-23] MEDS: Budesonide Neb 0.5 MG/2 ML IH SCH ×2 (08:03→20:12)
[2016-12-23] MEDS ORDERED: clonazePAM 1 MG TABLET PO PRN (09:02)
[2016-12-23] MEDS: Pantoprazole 40 MG VIAL IVP SCH (09:10)
[2016-12-23] MEDS: Chloraseptic Spray 177 ML BOTTLE MM PRN (09:24)
[2016-12-23] MEDS ORDERED: Bisacodyl 10 MG RECTAL SUPPOSITORY RC ONE (09:30)
[2016-12-23] MEDS: *HR* LORazepam 2 MG/ML VIAL IVP PRN ×2 (10:36→22:09)
--- NOTE | 2016-12-23 11:00 | General Surgery Progress Note ---
Date of Encounter: 12/23/16 Time of Encounter: 10:56 - Assessment and Plan (1) Partial small bowel obstruction Current Visit: Yes Status: Acute Conservative measures to continue Bowel rest with NG tube to LIWS IV fluids 75ml/hour Serial abdominal exams Supportive care/pain control Will obtain XR small bowel follow thru with barium Patient is a poor surgical candidate- will continue to await resolution with conservative measures (2) COPD (chronic obstructive pulmonary disease) Current Visit: No Status: Chronic Management per primary team (medicine) Qualifiers: COPD type: unspecified COPD Qualified Code(s): J44.9 - Chronic obstructive pulmonary disease, unspecified (3) GERD (gastroesophageal reflux disease) Current Visit: No Status: Chronic PPI daily Qualifiers: Esophagitis presence: esophagitis presence not specified Qualified Code(s) : K21.9 - Gastro-esophageal reflux disease without esophagitis (4) HTN (hypertension) Current Visit: No Status: Chronic Improved today Continue Metoprolol 5ml IV every 6 hours Management per medicine service Qualifiers: Hypertension type: essential hypertension Qualified Code(s): I10 - Essential (primary) hypertension (5) Morbid obesity with BMI of 40.0-44.9, adult Current Visit: No Status: Chronic (6) DVT prophylaxis Current Visit: Yes Status: Acute Continue heparin 5,000 units SQ every 8 hours Subjective Patient reports: still having pain, no flatus, no bowel movement, afebrile Narrative: Patient seen and examined at bedside with Dr. Jones. Pt. reports he is still not having any flatus and has not had a BM. He does not have any bowel sounds, no guarding, no rebound. Afebrile. Still having some nausea. NG out was 450 yesterday. Will obtain small bowel follow thru with barium today. Objective Vital Signs - Last 8 Hours Temp Pulse Resp BP Pulse Ox 12/23/16 08:05 18 97 12/23/16 07:02 98.5 F 86 17 137/67 94 L 12/23/16 05:42 97.6 F 99 19 163/89 96 Intake and Output 12/22/16 12/23/16 12/23/16 23:59 07:59 15:59 Intake Total 0 / 0 Output Total 250 / 250 460 / 460 400 / 400 Balance -250 / -250 -460 / -460 -400 / -400 Intake: Oral 0 / 0 Output: Urine 250 / 250 100 / 100 100 / 100 Gastric Tube Lavage 150 / 150 Amount Right Nare 150 / 150 Gastric Drainage 350 / 350 150 / 150 Other: Meal NPO NPO NPO Blood Glucose* 106 101 - Additional Exam - General physical appearance well developed, well nourished, chronically ill - Eyes normal ocular movement - ENT normal mucosa, atraumatic, normocephalic - Neck Neck exam: trachea midline - Respiratory other (diminished breath sounds bilaterally) wheezing: bilateral - Cardiovascular Cardiovascular exam: Present: tachycardia - Abdomen Abdomen: Present: soft, tender (improved), wound (NG tube to LIWS) Hernia: umbilical - Neurologic CN 2-12 grossly intact - Psychiatric oriented to time, oriented to person, oriented to place, speech is normal, memory intact - Labs 12/23/16 04:46 12/23/16 04:30 Diabetes panel 12/23/16 Range/Units 04:30 Sodium 142 (136-145) mEq/L Potassium 4.1 (3.5-4.5) mEq/L Chloride 105 (98-109) mEq/L Carbon Dioxide 25 (19-29) mEq/L BUN 28 H (8-26) mg/dL Creatinine 1.00 (0.72-1.25) mg/dL Glucose 118 H (70-99) mg/dL Calcium 9.0 (8.6-10.8) mg/dL Calcium panel 12/23/16 Range/Units 04:30 Calcium 9.0 (8.6-10.8) mg/dL Pituitary panel 12/23/16 Range/Units 04:30 Sodium 142 (136-145) mEq/L Potassium 4.1 (3.5-4.5) mEq/L Chloride 105 (98-109) mEq/L Carbon Dioxide 25 (19-29) mEq/L BUN 28 H (8-26) mg/dL Creatinine 1.00 (0.72-1.25) mg/dL Glucose 118 H (70-99) mg/dL Calcium 9.0 (8.6-10.8) mg/dL Adrenal panel 12/23/16 Range/Units 04:30 Sodium 142 (136-145) mEq/L Potassium 4.1 (3.5-4.5) mEq/L Chloride 105 (98-109) mEq/L Carbon Dioxide 25 (19-29) mEq/L BUN 28 H (8-26) mg/dL Creatinine 1.00 (0.72-1.25) mg/dL Glucose 118 H (70-99) mg/dL Calcium 9.0 (8.6-10.8) mg/dL Consult Discharge Plan - Plan Referrals: Bryce Jones DO [Primary Care Provider] - - Attending Attestation I examined this patient and my medical decision-making was reviewed with the BODS DEVELOPER/PA/Advanced Practice Nurse/Resident Physician. I agree with the documented findings, disposition and treatment plan as described except to the extent set forth below. Patient is seen on morning round with the resident. He does not appear to be resolving his bowel obstruction. We will plan a SBFT. If a complete obstruction is present, laparotomy, even through high risk due to COPD and steroid use, may be indicated. SBFT Jose Antonio Jones MD FACS
[2016-12-23] MEDS: 0.9 % Sodium Chloride 1,000 ML IVC SCH (11:22)
[2016-12-23] MEDS ORDERED: *HR* LORazepam 2 MG/ML VIAL IVP SCH (12:00)
--- NOTE | 2016-12-23 12:11 | Internal Med Progress Note ---
Date of Encounter: 12/23/16 Time of Encounter: 12:09 - Assessment and plan (1) Small bowel obstruction due to adhesions Current Visit: Yes Status: Acute Assessment and plan: NGT in place being followed by surgery NPO for now , some Ice chips, to continue conservative management. Patient is not a good surgical candidate. Continue to monitor abdominal exam. keep flushing NGT if no drainage. Have added Reglan for nausea, already on Zofran, Phenergan to help with nausea. plan for small bowel follow through for today. (2) COPD (chronic obstructive pulmonary disease) Current Visit: Yes Status: Chronic Assessment and plan: Appears more stable. Continue duo nebs as scheduled for now, sats are maintained at 2 L, will continue oxygen titration to maintain sats above 88-92%. Qualifiers: COPD type: unspecified COPD Qualified Code(s): J44.9 - Chronic obstructive pulmonary disease, unspecified (3) Essential hypertension Current Visit: No Status: Chronic Assessment and plan: Blood pressure stable now. Unable to get by mouth meds, is on metoprolol when necessary, will add hydralazine for blood pressure systolic is more than 170. - Time Spent With Patient 25 - 35 minutes - Subjective Interval history: patient at the bedside, admitted for SBO. reports feeling the same, he said he passed some gas last night but has not today. has not moved his bowels. Still nothing by mouth,poor candidate for surgery, surgery following. - Constitutional Vitals: Temp Pulse Resp BP Pulse Ox 97.9 F 90 18 147/90 95 12/23/16 10:57 12/23/16 10:57 12/23/16 11:32 12/23/16 10:57 12/23/16 11:32 General appearance: Present: mild distress, A&O X 3 Exam: Neck: No obvious neck swellings Lungs: B/L clear Cardiac: Regular rate and rhythm. No significant murmurs Abdomen: Distended; nontender. Bowel sounds present. Midline post surgical scar present Neurological: Alert and oriented. No gross localizing deficits Psych: Not aggressive or agitated Extremities: no significant leg edema Skin: No generalized rash Internal Medicine: Result - Labs CBC & Chem 7: 12/23/16 04:46 12/23/16 04:30 Labs: Short CBC 12/23/16 Range/Units 04:46 WBC 10.0 (4.3-11.1) K/mcL Hgb 12.7 L (12.9-16.9) g/dL Hct 40.5 (37.5-50.1) % Plt Count 211 (140-400) K/mcL Neutrophils # 7.5 (1.6-8.9) K/mcL BMP 12/23/16 04:30 Sodium 142 Potassium 4.1 Chloride 105 Carbon Dioxide 25 BUN 28 H Creatinine 1.00 Glucose 118 H Calcium 9.0 Consult Discharge Plan - Plan Referrals: Bryce Jones DO [Primary Care Provider] -
[2016-12-24] MEDS: Metoclopramide 10 MG/2 ML VIAL IVP PRN ×3 (00:18→13:07)
[2016-12-24] MEDS: *HR* HYDROmorphone (PF) 1 MG/ML SYRINGE IVP PRN ×8 (00:18→22:21)
[2016-12-24] MEDS: *HR* Metoprolol 5 MG/5 ML VIAL IVP SCH ×5 (00:19→23:56)
[2016-12-24] MEDS: Ondansetron 4 MG/2 ML VIAL IVP PRN ×4 (03:32→20:04)
[2016-12-24] MEDS: Ipratropium/Albuterol Neb 3 ML IH SCH ×5 (04:08→20:38)
[2016-12-24] MEDS: *HR* Heparin 5,000 UNIT/ML VIAL SQ SCH ×3 (06:14→22:03)
[2016-12-24] MEDS: 0.9 % Sodium Chloride 1,000 ML IVC SCH (06:15)
[2016-12-24] MEDS: Budesonide Neb 0.5 MG/2 ML IH SCH ×2 (07:17→20:38)
[2016-12-24] MEDS: Pantoprazole 40 MG VIAL IVP SCH (08:58)
--- NOTE | 2016-12-24 11:08 | General Surgery Progress Note ---
Date of Encounter: 12/24/16 Time of Encounter: 12:30 - Assessment and Plan (1) Partial small bowel obstruction Current Visit: Yes Status: Acute Conservative measures including: Bowel rest with NG tube to LIWS IV fluids-75ml/hour Serial abdominal exams Supportive care/pain control Patient is a poor surgical candidate- will continue to await resolution with conservative measures SBFT- poorly tolerated and patient has continued dilated loops of SB without transition point, Dr Jones may likely take patient to OR for ex lap tomorrow if nonresolution continues dulcolax suppository today Consider PICC and TPN therapy (2) COPD (chronic obstructive pulmonary disease) Current Visit: Yes Status: Chronic Stable Management per medicine service Qualifiers: COPD type: unspecified COPD Qualified Code(s): J44.9 - Chronic obstructive pulmonary disease, unspecified (3) GERD (gastroesophageal reflux disease) Current Visit: No Status: Chronic PPI therapy daily Qualifiers: Esophagitis presence: esophagitis presence not specified Qualified Code(s) : K21.9 - Gastro-esophageal reflux disease without esophagitis (4) HTN (hypertension) Current Visit: No Status: Chronic Continue Metoprolol 5ml IV every 6 hours Hydralazine prn Management per medicine service Qualifiers: Hypertension type: essential hypertension Qualified Code(s): I10 - Essential (primary) hypertension (5) Morbid obesity with BMI of 40.0-44.9, adult Current Visit: No Status: Chronic (6) DVT prophylaxis Current Visit: No Status: Acute Continue heparin 5,000 units SQ every 8 hours Subjective Patient reports: no new complaints, still having pain (central abdominal unchanged), voiding w/o difficulty, no flatus, no bowel movement, nausea ( occasional), vomiting (last evening with SBFT), afebrile Narrative: Patient does not feel any better. He still has mid abdominal periumbilical pain. He has not passed any flatus. He is still very distended. Had a small bowel follow through yesterday became very nauseous afterwards and had to have his NG tube placed back to suction that he did not have emesis. Objective Vital Signs - Last 8 Hours Temp Pulse Resp BP Pulse Ox 12/24/16 07:30 98.0 F 89 18 173/93 93 L 12/24/16 07:17 18 96 12/24/16 05:09 98.5 F 106 15 157/88 96 12/24/16 04:10 20 96 Intake and Output 12/23/16 12/24/16 12/24/16 23:59 07:59 15:59 Intake Total 50 / 50 1000 / 1000 Output Total 1250 / 1250 1850 / 1850 Balance -1200 / -1200 -850 / -850 Intake: IV Fluids 1000 / 1000 0.9 % Sodium Chloride 1, 1000 / 1000 000 ML @ 75 mls/hr IVC . [id number] [facility] Rx#: [id number] Oral 50 / 50 Output: Urine 350 / 350 400 / 400 Gastric Tube Lavage 450 / 450 Amount Right Nare 450 / 450 Gastric Drainage 450 / 450 1450 / 1450 Other: Meal Dinner NPO Percent of Meal Consumed 5% Weight 125.418 kg Blood Glucose* 128 144 - General physical appearance well nourished, no distress, chronically ill, obese - Eyes PERRL, normal ocular movement - ENT dry mucosa, atraumatic, normocephalic - Neck Neck exam: trachea midline - Respiratory normal expansion, normal respiratory effort, clear to auscultation, other ( diminished bibasilar bases) - Cardiovascular Cardiovascular exam: Present: RRR, tachycardia - Abdomen Abdomen: Present: soft, distended, tender (mild, generalized tenderness), wound (NG tube to LIWS (2000ml since midnight bilious drainage)) - Integumentary no growths - Neurologic CN 2-12 grossly intact - Musculoskeletal normal posture - Psychiatric oriented to time, oriented to person, oriented to place, speech is normal, memory intact - Labs 12/23/16 04:46 12/23/16 04:30 Short CBC 12/24/16 Range/Units 16:50 WBC 10.5 (4.3-11.1) K/mcL Hgb 13.5 (12.9-16.9) g/dL Hct 43.9 (37.5-50.1) % Plt Count 234 (140-400) K/mcL Neutrophils # 8.6 (1.6-8.9) K/mcL Vital Signs Temp Pulse Resp BP Pulse Ox 12/24/16 15:52 18 148/111 96 12/24/16 15:32 97.4 F L 117 18 148/111 96 12/24/16 12:15 97.9 F 114 17 142/95 95 12/24/16 11:25 18 96 12/24/16 07:30 98.0 F 89 18 173/93 93 L 12/24/16 07:17 18 96 12/24/16 05:09 98.5 F 106 15 157/88 96 12/24/16 04:10 20 96 12/24/16 01:01 98.4 F 110 14 150/98 96 12/23/16 23:20 22 97 12/23/16 20:27 97.3 F L 95 17 156/88 96 12/23/16 20:13 18 96 Intake and Output 12/24/16 12/24/16 12/24/16 07:59 15:59 23:59 Intake Total 1000 / 1000 Output Total 1850 / 1850 0 / 0 Balance -850 / -850 0 / 0 Intake: IV Fluids 1000 / 1000 0.9 % Sodium Chloride 1, 1000 / 1000 000 ML @ 75 mls/hr IVC . [id number] ANA Rx#: [id number] Output: Urine 400 / 400 0 / 0 Gastric Drainage 1450 / 1450 Other: Meal NPO Blood Glucose* 144 132 Consult Discharge Plan - Plan Referrals: Bryce Jnoes DO [Primary Care Provider] - - Attending Attestation I examined this patient and my medical decision-making was reviewed with the FORMS ANALYST/PA/Advanced Practice Nurse/Resident Physician. I agree with the documented findings, disposition and treatment plan as described except to the extent set forth below. I examined this patient and my medical decision-making was reviewed with the FORMS ANALYST/PA/Advanced Practice Nurse/Resident Physician. I agree with the documented findings, disposition and treatment plan as described except to the extent set forth below.
[2016-12-24] MEDS: *HR* LORazepam 2 MG/ML VIAL IVP PRN ×2 (11:09→22:21)
--- NOTE | 2016-12-24 12:29 | Internal Med Progress Note ---
Date of Encounter: 12/24/16 Time of Encounter: 11:45 - Assessment and plan (1) Small bowel obstruction due to adhesions Current Visit: Yes Status: Acute Assessment and plan: Patient is a poor surgical candidate. Still no flatus, hypoactive BS, abdominal distension, and moderate output thru NGT. will start TPN and continue conservative management including, NGT with LWIS, IV fluids, and antiemetics. (2) Chronic respiratory failure Current Visit: Yes Status: Chronic Assessment and plan: continue home oxygen Qualifiers: Respiratory failure complication: hypoxia Qualified Code(s): J96.11 - Chronic respiratory failure with hypoxia (3) COPD (chronic obstructive pulmonary disease) Current Visit: Yes Status: Chronic Assessment and plan: Stable. Continue duo nebs. Qualifiers: COPD type: unspecified COPD Qualified Code(s): J44.9 - Chronic obstructive pulmonary disease, unspecified (4) HTN (hypertension) Current Visit: No Status: Chronic Assessment and plan: not controlled due to pain. IV hydralazine prn. Qualifiers: Hypertension type: essential hypertension Qualified Code(s): I10 - Essential (primary) hypertension (5) Obesity (BMI 35.0-39.9 without comorbidity) Current Visit: Yes Status: Acute Assessment and plan: bmi 38 - Subjective Interval history: patient reports lower abdominal pain. NGT with LWIS is draining a fecal watery secretion of 700 ml since 6 am. - Constitutional Vitals: Temp Pulse Resp BP Pulse Ox 97.9 F 114 17 142/95 95 12/24/16 12:15 12/24/16 12:15 12/24/16 12:15 12/24/16 12:15 12/24/16 12:15 General appearance: Present: cooperative, A&O X 3, pleasant, no acute distress, answers questions appropriately - Eye Eye exam: Present: PERRL, sclera anicteric - ENT ENT exam: Present: mucous membranes moist Additional comments: NGT - Neck Neck exam general surgery: Present: supple, trachea midline. Absent: lymphadenopathy - Respiratory Respiratory exam: Present: CTAB - Cardiovascular Cardiovascular exam: Present: RRR - GI/Abdominal GI/Abdominal exam: Present: distended (no bowel sounds), soft, tenderness (mild diffuse tenderness) - Extremities Exam Extremities exam: Present: pedal edema (2+ LE edema, chronic per patient) - Back Exam Back exam: Absent: CVA tenderness (L), CVA tenderness (R) - Neurological Exam Neurological exam: Present: alert, oriented X3, no focal deficits, strengths equal and symetr throughout (patient is sitting on chair.). Absent: facial droop, speech deficit - Skin Skin exam: Absent: rash Internal Medicine: Result - Labs CBC & Chem 7: 12/24/16 16:50 12/24/16 16:50 - Impressions Impressions Chest/Abdomen X-ray 12/22/16 07:00 IMPRESSION: 1. Left basilar opacity, likely atelectasis. 2. Enteric tube tip and side port overlying the gastric body. 3. Single mildly dilated loop of small bowel in the upper abdomen which is nonspecific and may be related to known small bowel obstruction. D/ / 12/22/2016 09:50:04 Kristen Phillips MD / caitlyn Interpreting Provider: Kristen Phillips MD Small Bowel X-Ray 12/23/16 10:34 IMPRESSION: 1. Dilated loops of small bowel compatible with small bowel obstruction. Follow-up abdominal radiographs can be obtained as clinically desired. D/ / Gene Toledo MD / Gene Toledo MD Interpreting Provider: Gene Toledo MD X-Ray 12/23/16 18:00 IMPRESSION: 1. Dilated loops of small bowel compatible with small bowel obstruction. Follow-up abdominal radiographs can be obtained as clinically desired. D/ / Gene Toledo MD / Gene Toledo MD Interpreting Provider: Gene Toledo MD X-Ray 12/24/16 05:00 IMPRESSION: Recommend advancing NG tube 6 cm D/ / Francisco Walker MD / Francisco Walker MD Interpreting Provider: Francisco Walker MD Consult Discharge Plan - Plan Referrals: Bryce Jones DO [Primary Care Provider] -
[2016-12-24] MEDS ORDERED: D10% in Water 500 ML IV PRN (12:30)
[2016-12-24] MEDS ORDERED: Bisacodyl 10 MG RECTAL SUPPOSITORY RC ONE (13:55)
[2016-12-24] MEDS ORDERED: Clinimix E 5%-15% SOLUTION 2,000 ML with MVI, adult with vitamin K 10 ML IV SCH (17:00)
[2016-12-24 17:04] LABS: Basophils % 0.1 %; Eosinophils % 0.3 %; Hematocrit 43.9 % (37.5-50.1); Hemoglobin 13.5 g/dL (12.9-16.9); Immature Granulocytes % 0.7 % (0-4); Lymphocytes # 0.9 K/mcL (0.6-4.6); Lymphocytes % 8.1 %; Mean Corpuscular HGB Conc 30.8 g/dL (31.6-35.5); Mean Corpuscular Hemoglobin 27.2 pg (28.0-33.3); Mean Corpuscular Volume 88.3 fL (83.0-100.0); Monocytes # 0.9 K/mcL (0.0-1.3); Monocytes % 8.9 %; Neutrophils # 8.6 K/mcL (1.6-8.9); Platelet Count 234 K/mcL (140-400); Red Blood Count 4.97 M/mcL (4.19-5.50); Red Cell Distribution Width 17.2 % (11.5-14.5); Segmented Neutrophils % 81.9 %
[2016-12-24 17:22] LABS: BUN/Creatinine Ratio 34 (6-26); Calcium 9.5 mg/dL (8.6-10.8); Carbon Dioxide 26 mEq/L (19-29); Chloride 107 mEq/L (98-109); Glucose 134 mg/dL (70-99); Magnesium 2.4 mg/dL (1.6-2.6); Osmolality,Calculated 317 (280-300); Sodium 148 mEq/L (136-145); eGFR For African Americans > 60 (> 60); eGFR For Non-African Americans > 60 (> 60)
[2016-12-24 17:23] LABS: Blood Urea Nitrogen 39 mg/dL (8-26)
[2016-12-24] MEDS ORDERED: *HR* Dextrose 50 % in Water (Syg) 50 ML SYRINGE IVP PRN (17:29)
[2016-12-24] MEDS ORDERED: Dextrose Gel 15 GM PO PRN ×2 (17:29)
[2016-12-24] MEDS ORDERED: D5% in Water 1,000 ML IV PRN (17:29)
[2016-12-24] MEDS: Insulin LISPRO 300 UNITS/3 ML VIAL SQ SCH (22:02)
[2016-12-25] MEDS: Ipratropium/Albuterol Neb 3 ML IH SCH ×6 (00:21→20:30)
[2016-12-25] MEDS: *HR* HYDROmorphone (PF) 1 MG/ML SYRINGE IVP PRN ×2 (03:08→08:41)
[2016-12-25 03:25] LABS: Basophils % 0.2 %; Eosinophils # 0.1 K/mcL (0.0-0.6); Eosinophils % 0.8 %; Hemoglobin 12.6 g/dL (12.9-16.9); Immature Granulocytes % 0.6 % (0-4); Lymphocytes # 0.9 K/mcL (0.6-4.6); Lymphocytes % 9.8 %; Mean Corpuscular HGB Conc 30.7 g/dL (31.6-35.5); Mean Corpuscular Hemoglobin 27.4 pg (28.0-33.3); Mean Corpuscular Volume 89.1 fL (83.0-100.0); Mean Platelet Volume 8.9 fL (9.4-12.4); Monocytes # 0.9 K/mcL (0.0-1.3); Monocytes % 9.5 %; Neutrophils # 7.2 K/mcL (1.6-8.9); Platelet Count 204 K/mcL (140-400); Red Cell Distribution Width 17.3 % (11.5-14.5); Segmented Neutrophils % 79.1 %
[2016-12-25 03:30] LABS: INR 1.2; Prothrombin Time 12.6 Seconds (9.4-12.1)
[2016-12-25 03:42] LABS: BUN/Creatinine Ratio 34 (6-26); Blood Urea Nitrogen 41 mg/dL (8-26); Calcium 9.1 mg/dL (8.6-10.8); Carbon Dioxide 28 mEq/L (19-29); Chloride 108 mEq/L (98-109); Glucose 167 mg/dL (70-99); Magnesium 2.4 mg/dL (1.6-2.6); Osmolality,Calculated 318 (280-300); Phosphorous 3.2 mg/dL (2.3-4.7); Potassium 3.8 mEq/L (3.5-4.5); Sodium 147 mEq/L (136-145); eGFR For African Americans > 60 (> 60); eGFR For Non-African Americans > 60 (> 60)
[2016-12-25] MEDS: Insulin LISPRO 300 UNITS/3 ML VIAL SQ SCH ×6 (04:58→20:31)
[2016-12-25] MEDS: *HR* Heparin 5,000 UNIT/ML VIAL SQ SCH ×3 (06:07→21:33)
[2016-12-25] MEDS: *HR* Metoprolol 5 MG/5 ML VIAL IVP SCH ×4 (06:10→19:07)
[2016-12-25] MEDS: Budesonide Neb 0.5 MG/2 ML IH SCH ×2 (07:30→20:31)
[2016-12-25] MEDS ORDERED: Water for inj. (sterile) 10 ML IV ONE (08:33)
[2016-12-25] MEDS: *HR* LORazepam 2 MG/ML VIAL IVP PRN (08:35)
[2016-12-25] MEDS: Ondansetron 4 MG/2 ML VIAL IVP PRN (08:41)
[2016-12-25] MEDS: Pantoprazole 40 MG VIAL IVP SCH (08:41)
--- NOTE | 2016-12-25 08:54 | General Surgery Progress Note ---
Date of Encounter: 12/25/16 Time of Encounter: 08:50 - Assessment and Plan (1) Partial small bowel obstruction Current Visit: Yes Status: Acute Conservative measures to continue Bowel rest with NG tube to LIWS IV fluids 75ml/hour Serial abdominal exams Supportive care/pain control Will obtain XR small bowel follow thru with barium Patient is a poor surgical candidate- will continue to await resolution with conservative measures 12/25/2016. The patient was seen and evaluated. I had a long discussion with him about the risks and benefits of surgical exploration. He is at high risk for postoperative complications especially pulmonary complications. He has had more than 3 admissions to the hospital for bowel obstruction. His bowel obstruction has not resolved. Small bowel follow-through is diagnostic for small bowel obstruction. I recommended exploratory laparotomy with lysis of adhesions possible bowel resection. He will be placed in the intensive care unit during the postoperative period for close observation of his respiratory status. He understands this and wishes to proceed. (2) COPD (chronic obstructive pulmonary disease) Current Visit: No Status: Chronic Management per primary team (medicine) Qualifiers: COPD type: unspecified COPD Qualified Code(s): J44.9 - Chronic obstructive pulmonary disease, unspecified (3) GERD (gastroesophageal reflux disease) Current Visit: No Status: Chronic PPI daily Qualifiers: Esophagitis presence: esophagitis presence not specified Qualified Code(s) : K21.9 - Gastro-esophageal reflux disease without esophagitis (4) HTN (hypertension) Current Visit: No Status: Chronic Improved today Continue Metoprolol 5ml IV every 6 hours Management per medicine service Qualifiers: Hypertension type: essential hypertension Qualified Code(s): I10 - Essential (primary) hypertension (5) Morbid obesity with BMI of 40.0-44.9, adult Current Visit: No Status: Chronic (6) DVT prophylaxis Current Visit: Yes Status: Acute Continue heparin 5,000 units SQ every 8 hours Subjective Narrative: The patient has had multiple admissions for bowel obstruction. He has now had symptomatic bowel obstruction for 4 days. Small bowel follow-through is suggestive of bowel obstruction. He has steroid-dependent COPD and profound morbid obesity. He is at very high risk for postoperative surgical complications including respiratory failure. I discussed this with him at length the day before yesterday and this morning. He has decided to proceed with exploratory laparotomy and lysis of adhesions with possible bowel resection. He understands that there is a high risk of postoperative complication. I have recommended that he be placed in the intensive care unit after surgery for close observation of his respiratory status. He understands this and wishes to proceed. We will proceed with urgent exploratory laparotomy and lysis of adhesions possible bowel resection Objective Vital Signs - Last 8 Hours Temp Pulse Resp BP Pulse Ox 12/25/16 08:26 143/88 12/25/16 07:32 20 94 L 12/25/16 06:50 97.7 F 94 18 156/102 97 12/25/16 04:12 20 94 L 12/25/16 03:43 97.7 F 98 19 144/77 95 Intake and Output 12/24/16 12/25/16 12/25/16 23:59 07:59 15:59 Intake Total 0 / 0 Output Total 900 / 900 Balance -900 / -900 Intake: Oral 0 / 0 Output: Urine 450 / 450 Gastric Drainage 450 / 450 Other: Stool Size Small Stool Consistency soft Stool Color Brown Weight 127.9 kg Blood Glucose* 134 156 Patient Weight 12/25/16 23:59 Weight 127.9 kg - General physical appearance obese - Respiratory wheezing: bilateral - Cardiovascular Cardiovascular exam: Present: RRR, no murmurs/rubs/gallops - Abdomen Abdomen: Present: non tender (Distended abdomen high-pitched bowel sounds) - Neurologic normal coordination, normal sensation - Psychiatric oriented to time, oriented to person, oriented to place, speech is normal, memory intact - Labs 12/25/16 03:00 12/25/16 03:00 Diabetes panel 12/24/16 12/24/16 12/25/16 Range/Units 16:50 16:50 03:00 Sodium 148 H 147 H (136-145) mEq/L Potassium 4.0 3.8 (3.5-4.5) mEq/L Chloride 107 108 (98-109) mEq/L Carbon Dioxide 26 28 (19-29) mEq/L BUN 39 H D 41 H (8-26) mg/dL Creatinine 1.15 1.20 (0.72-1.25) mg/dL Glucose 134 H 167 H (70-99) mg/dL Calcium 9.5 9.1 (8.6-10.8) mg/dL Triglycerides 206 H (< 150) mg/dL Calcium panel 12/24/16 12/25/16 Range/Units 16:50 03:00 Calcium 9.5 9.1 (8.6-10.8) mg/dL Phosphorus 3.0 3.2 (2.3-4.7) mg/dL Pituitary panel 12/24/16 12/25/16 Range/Units 16:50 03:00 Sodium 148 H 147 H (136-145) mEq/L Potassium 4.0 3.8 (3.5-4.5) mEq/L Chloride 107 108 (98-109) mEq/L Carbon Dioxide 26 28 (19-29) mEq/L BUN 39 H D 41 H (8-26) mg/dL Creatinine 1.15 1.20 (0.72-1.25) mg/dL Glucose 134 H 167 H (70-99) mg/dL Calcium 9.5 9.1 (8.6-10.8) mg/dL Adrenal panel 12/24/16 12/25/16 Range/Units 16:50 03:00 Sodium 148 H 147 H (136-145) mEq/L Potassium 4.0 3.8 (3.5-4.5) mEq/L Chloride 107 108 (98-109) mEq/L Carbon Dioxide 26 28 (19-29) mEq/L BUN 39 H D 41 H (8-26) mg/dL Creatinine 1.15 1.20 (0.72-1.25) mg/dL Glucose 134 H 167 H (70-99) mg/dL Calcium 9.5 9.1 (8.6-10.8) mg/dL Consult Discharge Plan - Plan Referrals: Bryce Jones DO [Primary Care Provider] -
[2016-12-25] MEDS: 0.9 % Sodium Chloride 1,000 ML IVC SCH ×3 (11:31→20:34)
[2016-12-25] MEDS: Metoclopramide 10 MG/2 ML VIAL IVP PRN (11:33)
--- NOTE | 2016-12-25 12:41 | Anesthesia Evaluation PreOp ---
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 HX Other Medical History: Other (Morbid Obesity) Anesthesia History: Problems (Hx Resp Failure) Alcohol Use: rarely Drug use: none Medications and Allergies Albuterol Sulfate [Albuterol Inhaler] 2 puff IH Q4HR PRN 03/16/16 [History] Amlodipine Besylate 10 mg PO DAILY 03/16/16 [History] Azelastine 0.1% Nasal [place] [Astelin] 1 spray NS BID 03/16/16 [History] Budesonide/Formoterol 160/4.5 [Symbicort 160/4.5] 2 puff IH BIDR 03/16/16 [ History] Cetirizine HCl [Zyrtec] 10 mg PO DAILY 03/16/16 [History] ClonazePAM [Klonopin] 1 mg PO BID PRN 03/16/16 [History] Docusate [Colace] 300 mg PO BID PRN 03/16/16 [History] Ergocalciferol (VITAMIN D2) [Vitamin D] 400 unit PO DAILY 03/16/16 [History] Esomeprazole Magnesium [Nexium] 40 mg PO BID 03/16/16 [History] Fluticasone Propionate Nasal [Flonase] 2 spray NS DAILY 03/16/16 [History] Ketoconazole Shampoo [Nizoral Shampoo] 1 appl TP 3XW 03/16/16 [History] Polyethylene Glycol 3350 [MiraLAX] 17 gm PO DAILY 03/16/16 [History] Psyllium Seed (with Sugar) [Metamucil Powder] 1 each PO BID 03/16/16 [History] Roflumilast [Daliresp] 500 mcg PO DAILY 03/16/16 [History] Sodium Chloride [[place] Saline] 1 spray NS BID PRN 03/16/16 [History] Metoprolol [Lopressor] 12.5 mg PO BID #30 tablet 09/30/16 [Rx] Montelukast [Singulair] 10 mg PO HS #30 tablet 09/30/16 [Rx] Metoclopramide [Reglan] 10 mg PO ACHS 11/03/16 [History] Umeclidinium [place] [Incruse Ellipta] 62.5 mcg IH DAILY 11/03/16 [History] Aspirin [Lo-Dose Aspirin EC] 81 mg PO DAILY #30 tablet. 11/05/16 [Rx] Oxygen 3 l .ROUTE AD 11/20/16 [History] Furosemide [Lasix] 10 mg PO DAILY #60 tablet 12/10/16 [Rx] Ipratropium/Albuterol Neb [Duoneb] 3 ml IH [id number] 30 Days 12/10/16 [Rx] Losartan [Cozaar] 25 mg PO DAILY #30 tablet 12/10/16 [Rx] PredniSONE 10 mg PO DAILY #63 tablet 12/10/16 [Rx] Allergies morphine Allergy (Verified 12/21/16 10:35) Difficulty Breathing sulfamethoxazole [From Bactrim] Allergy (Verified 12/21/16 10:35) Hives trimethoprim [From Bactrim] Allergy (Verified 12/21/16 10:35) Hives codeine Adverse Reaction (Verified 12/21/16 10:35) Nausea - Meds/Allergy Pre-op Review Medications Reviewed: Yes Allergies Reviewed: Yes Beta Blockers on Current Med List: No Anesthesia Results - Labs 12/25/16 03:00 12/25/16 03:00 - Imaging EKG: report reviewed (SR) Additional studies: EF 55-60% Anesthesia Exam O2 Sat Weight 127.9 kg O2 Sat by Pulse Oximetry 94 O2 Sat by Pulse Oximetry 94 O2 Sat by Pulse Oximetry 97 O2 Sat by Pulse Oximetry 94 O2 Sat by Pulse Oximetry 95 O2 Sat by Pulse Oximetry 95 O2 Sat by Pulse Oximetry 94 O2 Sat by Pulse Oximetry 96 O2 Sat by Pulse Oximetry 96 O2 Sat by Pulse Oximetry 94 O2 Sat by Pulse Oximetry 96 O2 Sat by Pulse Oximetry 96 Vital Signs Temp Pulse Resp BP Pulse Ox 98.7 F 113 22 154/96 96 12/21/16 00:44 12/21/16 00:44 12/21/16 00:44 12/21/16 00:44 12/21/16 00:44 Height: 5'11 Weight: 280 lbs NPO (# of Hours): MN Pain Scale: 0 - HEENT Pupil (Motor): Pupils equal, EOMI Mallampati: III Teeth: Edentulous Oral Opening: Less than or equal to 3 - IRRIGATING PUMP OPERATOR LOC: Oriented IRRIGATING PUMP OPERATOR Motor: Normal RUE, Normal LUE, Normal RLE, Normal LLE, Normal Face IRRIGATING PUMP OPERATOR Sensory: Normal: RUE, LUE, RLE, LLE, Face - Cardiac Rhythm: Regular Murmur: None JVD: No Carotid Bruit: No - Pulmonary Breath Sounds: bilateral Clear Respiratory Effort: Symmetrical Anesthesia Assess/Plan ASA Score: 4, E Modified [place] Scale for Level of Consciousness: Cooperative, oriented, and tranquil Anesthetic Plan: General Monitoring Plan: Standard Monitors Recovery Plan: ICU (Discussed GA, post op ventilation, ICU, agrees to proceed)
[2016-12-25] MEDS ORDERED: *HR* Propofol 200 MG/20 ML VIAL IVP ONE (12:52)
[2016-12-25] MEDS ORDERED: *HR* FentaNYL (PF) 100 MCG/2 ML VIAL ONE (12:52)
[2016-12-25] MEDS ORDERED: Lidocaine -MPF 2% 2 ML VIAL ONE (12:53)
[2016-12-25] MEDS ORDERED: Lidocaine -MPF 4% 5 ML AMPUL ONE (12:53)
[2016-12-25] MEDS ORDERED: *HR* Rocuronium Bromide 50 MG/5 ML VIAL ONE ×3 (12:56→15:20)
[2016-12-25] MEDS ORDERED: *HR* Succinylcholine 200 MG/10 ML VIAL IVP ONE (12:56)
[2016-12-25] MEDS ORDERED: *HR* HYDROmorphone 2 MG/ML SYRINGE ONE ×2 (13:25→15:16)
[2016-12-25] MEDS ORDERED: *HR* Phenylephrine 10 MG/ML VIAL ONE (13:26)
[2016-12-25] MEDS ORDERED: CefOXitin 1,000 MG VIAL ONE (15:10)
--- NOTE | 2016-12-25 15:51 | Operative Note ---
Date of procedure: 12/25/16 Pre-op diagnosis: Bowel obstruction Post-op diagnosis: same Procedure: #1 lites of adhesions for 90 minutes #2 small bowel resection #3+30% for profound morbid obesity and mesh erosion into small bowel Anesthesia: MANAV Surgeon: Jose Antonio Jones Estimated blood loss (cc): 150 Condition: stable (Small bowel) Disposition: ICU Procedure in Detail: After informed consent the patient was taken to the major operating suite placed in the supine position and given adequate general anesthetic the abdomen was prepped and draped in sterile fashion utilizing ChloraPrep standard draping techniques. Timeout is taken patient was identified. I made a vertical midline incision below the previous mesh placement incision. I entered the abdominal cavity just below the mesh and immediately encountered small bowel densely adherent to previously placed mesh with evidence of direct erosion into the small bowel wall. Over the next 90 minutes I dissected millimeter by millimeter in encountered 2 specific areas where the mesh had eroded so far into the bowel wall that enterotomy was unavoidable. 2 large enterotomies were made in the area of maximum erosion of the mesh and the small bowel. These areas were closed with a stapler for future resection. After 90 minutes I was able to enter the abdominal cavity and freed all of the small bowel from the mesh. I dissected distally and found an area of feculent impaction of the small bowel. This is indicative of a distal obstruction. I worked distally and in the distal ileum there are a series of tight quarrels of small bowel with simple adhesions. Proximally this the bowel was massively dilated and full of vegetable material distal to this the small bowel was flaccid. Lysis of adhesions was performed along this entire area with no enterotomies area this gave continuity of the small bowel from proximal to distal. The area of the small bowel that had direct mesh erosion into the small bowel was now resected. I used CHEYANNE to divide the small bowel proximal and distal to the 2 areas of direct mesh erosion into the small bowel. I then resected about 40 cm of mid jejunum. The specimen was passed off the field. I performed a functional end-to-end anastomosis using CHEYANNE and TA 60 to close the resulting enterotomy. The anastomosis was circumferentially reinforced with interrupted 3 -0 silk. This gave an excellent technical result. The combination of small bowel resection and small bowel lysis of adhesion resulted in complete continuity of the small bowel area the previously placed midline mesh had to be reapproximated. I close the entire midline with interrupted 0 Nurolon braided nonabsorbable suture material. This gave an excellent technical result. Prior to closure the abdomen was completely irrigated with antibiotic containing solution and I also used antibiotic containing solution and the subcutaneous tissue. Subcutaneous tissue was reapproximated with multiple layers of interrupted Vicryl. The procedure took over an hour longer than normal because of the patient's tremendous morbid obesity and because of the amount of small bowel tissue directly adherent to the mesh requiring prolonged meticulous dissection to avoid further enterotomy. The 2 enterotomies that occurred were unavoidable due to direct erosion of mesh and the bowel wall. The patient tolerated procedure well.
--- NOTE | 2016-12-25 16:15 | Anesthesia Evaluation Post Op ---
Date of Encounter: 12/25/16 Time of Encounter: 16:10 - Vital Signs Vital Signs: Vital Signs/O2 Sat/Glucose, Most Current Resp BP Pulse Ox 12/25/16 15:55 12 160/96 100 - Lungs Lungs: Clear Ascult./Percussion - Airway Airway: Intubated - Cardiovascular Regular Rate - Mental Status Mental Status: Non-responsive - Nausea Vomiting Nausea Vomiting: Unable to assess - Hydration Hydration: NPO Notes: 12/25/16 16:15 Intubated in ICU
--- NOTE | 2016-12-25 16:16 | Internal Med Progress Note ---
Date of Encounter: 12/25/16 Time of Encounter: 11:00 - Assessment and plan (1) Small bowel obstruction due to adhesions Current Visit: Yes Status: Acute Assessment and plan: Patient is a poor surgical candidate. Still no flatus, hypoactive BS, abdominal distension, and moderate output thru NGT. appreciate surgical input: plan for open laparotomy this afternoon. continue TPN , NGT with LWIS, IV fluids, and antiemetics. (2) Fluid overload Current Visit: Yes Status: Acute Assessment and plan: history of diastolic heart failure. fluid overload due to IV hydration. Qualifiers: Hypervolemia type: other Qualified Code(s): E87.79 - Other fluid overload (3) Chronic respiratory failure Current Visit: Yes Status: Chronic Assessment and plan: continue home oxygen Qualifiers: Respiratory failure complication: hypoxia Qualified Code(s): J96.11 - Chronic respiratory failure with hypoxia (4) COPD (chronic obstructive pulmonary disease) Current Visit: Yes Status: Chronic Assessment and plan: Stable. Continue duo nebs. Qualifiers: COPD type: unspecified COPD Qualified Code(s): J44.9 - Chronic obstructive pulmonary disease, unspecified (5) HTN (hypertension) Current Visit: No Status: Chronic Assessment and plan: not controlled due to pain. IV hydralazine prn. Qualifiers: Hypertension type: essential hypertension Qualified Code(s): I10 - Essential (primary) hypertension (6) Obstructive sleep apnea Current Visit: No Status: Chronic (7) Obesity (BMI 35.0-39.9 without comorbidity) Current Visit: Yes Status: Acute Assessment and plan: bmi 38 - Subjective Interval history: patient still with abdominal pain. NGT with LWIS is still draining fecal material. - Constitutional Vitals: Temp Pulse Resp BP Pulse Ox 98.3 F 109 12 160/96 100 12/25/16 11:05 12/25/16 11:05 12/25/16 15:55 12/25/16 15:55 12/25/16 15:55 General appearance: Present: cooperative, A&O X 3, pleasant, no acute distress, answers questions appropriately - Eye Eye exam: Present: PERRL, sclera anicteric - ENT ENT exam: Present: mucous membranes moist - Neck Neck exam general surgery: Present: supple, trachea midline. Absent: lymphadenopathy - Respiratory Respiratory exam: Present: CTAB - Cardiovascular Cardiovascular exam: Present: tachycardia - GI/Abdominal GI/Abdominal exam: Present: distended, soft, tenderness Additional comments: no bowel sounds - Extremities Exam Extremities exam: Present: pedal edema (2+ LE edema) - Back Exam Back exam: Absent: CVA tenderness (L), CVA tenderness (R) - Neurological Exam Neurological exam: Present: alert, oriented X3. Absent: facial droop, speech deficit - Skin Skin exam: Absent: rash Internal Medicine: Result - Labs CBC & Chem 7: 12/25/16 03:00 12/25/16 03:00 Labs: Short CBC 12/24/16 12/25/16 Range/Units 16:50 03:00 WBC 10.5 9.1 (4.3-11.1) K/mcL Hgb 13.5 12.6 L (12.9-16.9) g/dL Hct 43.9 41.0 (37.5-50.1) % Plt Count 234 204 (140-400) K/mcL Neutrophils # 8.6 7.2 (1.6-8.9) K/mcL BMP 12/24/16 12/25/16 16:50 03:00 Sodium 148 H 147 H Potassium 4.0 3.8 Chloride 107 108 Carbon Dioxide 26 28 BUN 39 H D 41 H Creatinine 1.15 1.20 Glucose 134 H 167 H Calcium 9.5 9.1 - ABG Interpretation ABG results: PT/INR, D-dimer PT 12.6 Seconds (9.4-12.1) H 12/25/16 03:00 - Impressions Impressions KUB X-Ray 12/24/16 17:05 IMPRESSION: The NG tube tip and proximal port are in the body of the stomach. D/ / 12/24/2016 18:38:11 Hafsa Sigala MD / destinee Interpreting Provider: Hafsa Sigala MD Consult Discharge Plan - Plan Referrals: Bryce Jones DO [Primary Care Provider] -
[2016-12-25] MEDS ORDERED: FentaNYL (PF) 1,000 MCG in 0.9 % Sodium Chloride 80 ML IVC SCH (16:30)
--- NOTE | 2016-12-25 16:34 | Pulmonology Consult Note ---
Date of Encounter: 12/25/16 Time of Encounter: 16:32 Assessment and Plan (1) Acute respiratory failure Current Visit: Yes Status: Acute In the postoperative setting. Plan for leaving the patient intubated overnight , and we can perform a spontaneous breathing trial in the morning with possible extubation on 12/26/2016. We will sedate with intravenous propofol and fentanyl drips. Qualifiers: Respiratory failure complication: unspecified whether with hypoxia or hypercapnia Qualified Code(s): J96.00 - Acute respiratory failure, unspecified whether with hypoxia or hypercapnia (2) Small bowel obstruction due to adhesions Current Visit: Yes Status: Acute Status post operative intervention by Dr. Jones on 12/25/2016. Postoperative care per surgical services. (3) Obstructive sleep apnea Current Visit: No Status: Chronic By history. Currently treated with endotracheal tube and mechanical ventilator. He will need PAP therapy nightly and while napping after extubation. No clear evidence of chronic hypercapnia or obesity hypoventilation syndrome. (4) COPD (chronic obstructive pulmonary disease) Current Visit: Yes Status: Chronic By history. Continue bronchodilators. Qualifiers: COPD type: unspecified COPD Qualified Code(s): J44.9 - Chronic obstructive pulmonary disease, unspecified History of Present Illness Consult date: 12/25/16 Requesting physician: Jose Antonio Jones Reason for consult: other (Respiratory failure) Chief complaint: Acute respiratory failure History of present illness: 61-year-old morbidly obese male with a medical history significant for COPD, VANI , and abdominal hernia. Of note, the patient is intubated and sedated, and therefore unable to dissipate in history or review of systems. Information was obtained from the medical record and in discussion with hospital staff. Reportedly, the patient had presented on 12/21/2016 for further evaluation of abdominal pain. He was found to have a small bowel obstruction thought to be secondary to adhesions. Patient underwent operative intervention by Dr. Jones on 12/25/2016. The patient returned from the operating room intubated and sedated. Past Med Surg Social Fam HX - Past Medical History Medical history: cardiomyopathy, COPD (with bronchitis), diabetes, GERD, hypertension, other (Sleep apnea, MRSA infection) Psychiatric history: anxiety, depression - Past Surgical History Surgical History: cataract, herniorrhaphy (ventral and inguinal), other (Bowel reconstruction; EGD; Colonoscopy 2012; right foot skin graft (muscle removed from stomach); heart cath.) - Social History Smoking Status: Former smoker Smokeless Tobacco Status: No Alcohol use: rarely Drug use: none - Family History Father Family Member Ethnicity: Non- Living Status: Age at : 78 Hx Family Cardiac Disorders: No Hx Family Respiratory Disorders: No Hx Family Cancer: Yes (pancreatic) Hx Family GI Disorders: No Hx Family Endocrine Disorder: Yes Hx Family Neuromuscular Disorders: No Hx Family Neurologic Disorders: No Hx Family HEENT Disorders: No Hx Family Autoimmune Disorders: No Mother History Unknown: Yes Adopted: [place]: kacey johnson Family Member Ethnicity: Non- Living Status: Age at : 63 Cause of : heart attack Hx Family Cardiac Disorders: Yes Hx Family Respiratory Disorders: Yes Hx Family Cancer: Yes (lung cancer) Hx Family GI Disorders: No Hx Family Endocrine Disorder: No Hx Family Neuromuscular Disorders: No Hx Family Neurologic Disorders: No Hx Family HEENT Disorders: No Hx Family Autoimmune Disorders: No Sister Living Status: Hx Family Cardiac Disorders: Yes Hx Family Respiratory Disorders: Yes Hx Family Cancer: No Hx Family GI Disorders: No Hx Family Endocrine Disorder: No Hx Family Neuromuscular Disorders: No Hx Family Neurologic Disorders: No Hx Family HEENT Disorders: No Hx Family Autoimmune Disorders: No Medications and Allergies Albuterol Sulfate [Albuterol Inhaler] 2 puff IH Q4HR PRN 03/16/16 [History] Amlodipine Besylate 10 mg PO DAILY 03/16/16 [History] Azelastine 0.1% Nasal [place] [Astelin] 1 spray NS BID 03/16/16 [History] Budesonide/Formoterol 160/4.5 [Symbicort 160/4.5] 2 puff IH BIDR 03/16/16 [ History] Cetirizine HCl [Zyrtec] 10 mg PO DAILY 03/16/16 [History] ClonazePAM [Klonopin] 1 mg PO BID PRN 03/16/16 [History] Docusate [Colace] 300 mg PO BID PRN 03/16/16 [History] Ergocalciferol (VITAMIN D2) [Vitamin D] 400 unit PO DAILY 03/16/16 [History] Esomeprazole Magnesium [Nexium] 40 mg PO BID 03/16/16 [History] Fluticasone Propionate Nasal [Flonase] 2 spray NS DAILY 03/16/16 [History] Ketoconazole Shampoo [Nizoral Shampoo] 1 appl TP 3XW 03/16/16 [History] Polyethylene Glycol 3350 [MiraLAX] 17 gm PO DAILY 03/16/16 [History] Psyllium Seed (with Sugar) [Metamucil Powder] 1 each PO BID 03/16/16 [History] Roflumilast [Daliresp] 500 mcg PO DAILY 03/16/16 [History] Sodium Chloride [[place] Saline] 1 spray NS BID PRN 03/16/16 [History] Metoprolol [Lopressor] 12.5 mg PO BID #30 tablet 09/30/16 [Rx] Montelukast [Singulair] 10 mg PO HS #30 tablet 09/30/16 [Rx] Metoclopramide [Reglan] 10 mg PO ACHS 11/03/16 [History] Umeclidinium [place] [Incruse Ellipta] 62.5 mcg IH DAILY 11/03/16 [History] Aspirin [Lo-Dose Aspirin EC] 81 mg PO DAILY #30 tablet. 11/05/16 [Rx] Oxygen 3 l .ROUTE AD 11/20/16 [History] Furosemide [Lasix] 10 mg PO DAILY #60 tablet 12/10/16 [Rx] Ipratropium/Albuterol Neb [Duoneb] 3 ml IH [id number] 30 Days 12/10/16 [Rx] Losartan [Cozaar] 25 mg PO DAILY #30 tablet 12/10/16 [Rx] PredniSONE 10 mg PO DAILY #63 tablet 12/10/16 [Rx] Allergies morphine Allergy (Verified 12/21/16 10:35) Difficulty Breathing sulfamethoxazole [From Bactrim] Allergy (Verified 12/21/16 10:35) Hives trimethoprim [From Bactrim] Allergy (Verified 12/21/16 10:35) Hives codeine Adverse Reaction (Verified 12/21/16 10:35) Nausea ROS unobtainable: due to endotracheal tube Physical Examination Vital Signs: Vital Signs, Last 4 Hours Resp BP Pulse Ox 12/25/16 15:55 12 160/96 100 General: Moderately obese white male in to beige and sedated Eyes: nonicteric ENT: The tracheal tube in place Neck: supple, no lymphadenopathy Lungs: Coarse bilateral breath sounds Cardiovascular: regular rate and rhythm Gastrointestinal: soft, non-tender, non-distended, midline dressing is clean dry and intact Integumentary: normal Extremities: no cyanosis, no edema Musculoskeletal: no deformities Neuro: Sedated Psych: Exam deferred Ventilator Settings Ventilator Settings: Ventilator Settings, Last 8 Hours Ventilator Mode A/C Ventilator Tidal Volume 650 Setting Ventilator Respiratory Rate 12 Setting Actual Respiratory Rate 12 Positive End Expiratory 5 Pressure Peak Inspiratory Airway 33 Pressure Results - Laboratory Findings CBC and BMP: 12/25/16 03:00 12/25/16 03:00 PT/INR, D-dimer PT 12.6 Seconds (9.4-12.1) H 12/25/16 03:00 Abnormal lab findings: Abnormal lab results Hgb 12.6 g/dL (12.9-16.9) L 12/25/16 03:00 MCH 27.4 pg (28.0-33.3) L 12/25/16 03:00 MCHC 30.7 g/dL (31.6-35.5) L 12/25/16 03:00 RDW 17.3 % (11.5-14.5) H 12/25/16 03:00 MPV 8.9 fL (9.4-12.4) L 12/25/16 03:00 PT 12.6 Seconds (9.4-12.1) H 12/25/16 03:00 Sodium 147 mEq/L (136-145) H 12/25/16 03:00 BUN 41 mg/dL (8-26) H 12/25/16 03:00 BUN/Creatinine Ratio 34 (6-26) H 12/25/16 03:00 Glucose 167 mg/dL (70-99) H 12/25/16 03:00 POC Glucose 112 (58-89) H 12/25/16 16:00 Calculated Osmolality 318 (280-300) H 12/25/16 03:00 Albumin 3.3 g/dL (3.5-5.0) L 12/21/16 00:59 Albumin/Globulin Ratio 1.0 (1.1-2.2) L 12/21/16 00:59 Triglycerides 206 mg/dL (< 150) H 12/24/16 16:50 Ur Specific [place] > 1.030 (1.010-1.025) H 12/21/16 03:40 Urine Blood Trace (Negative) H 12/21/16 03:40 Urine Microscopic RBC 5-15 per hpf (0-3) H 12/21/16 03:40 Ur Squamous Epith Cells Many per lpf (None-Few) H 12/21/16 03:40 Stool Occult Blood Positive (Negative) A 12/21/16 00:46 - Clinical Findings Intake & Output: Intake & Output 12/25/16 12/25/16 12/25/16 07:59 15:59 23:59 Intake Total 0 / 0 0 / 0 Output Total 900 / 900 500 / 500 200 / 200 Balance -900 / -900 -500 / -500 -200 / -200 Weight 127.9 kg 137.5 kg Consult Discharge Plan - Plan Referrals: Bryce Jones DO [Primary Care Provider] -
[2016-12-25] MEDS ORDERED: Clinimix E 5%-15% SOLUTION 2,000 ML with MVI, adult with vitamin K 10 ML IV SCH ×2 (17:00→17:16)
[2016-12-25] MEDS ORDERED: Naloxone 0.4 MG/ML INJ IVP PRN (17:16)
[2016-12-25] MEDS ORDERED: *HR* Dextrose 50 % in Water (Syg) 50 ML SYRINGE IVP PRN (17:16)
[2016-12-25] MEDS ORDERED: D5% in Water 1,000 ML IV PRN (17:16)
[2016-12-25] MEDS ORDERED: Dextrose Gel 15 GM PO PRN ×2 (17:16)
[2016-12-25] MEDS ORDERED: D10% in Water 500 ML IV PRN (17:16)
[2016-12-25] MEDS ORDERED: Chloraseptic Spray 177 ML BOTTLE MM PRN (17:16)
[2016-12-25] MEDS ORDERED: Albuterol 2.5 MG/3 ML NEBULIZER IH PRN (17:16)
[2016-12-25] MEDS: FentaNYL (PF) 1,000 MCG in 0.9 % Sodium Chloride 80 ML IVC SCH ×2 (20:20→23:21)
[2016-12-26] MEDS: Ipratropium/Albuterol Neb 3 ML IH SCH ×6 (00:08→20:15)
[2016-12-26] MEDS: *HR* Metoprolol 5 MG/5 ML VIAL IVP SCH ×4 (00:21→18:18)
[2016-12-26] MEDS: Insulin LISPRO 300 UNITS/3 ML VIAL SQ SCH ×6 (00:22→20:30)
[2016-12-26] MEDS: FentaNYL (PF) 1,000 MCG in 0.9 % Sodium Chloride 80 ML IVC SCH (04:30)
[2016-12-26 05:07] LABS: BUN/Creatinine Ratio 28 (6-26); Blood Urea Nitrogen 39 mg/dL (8-26); Calcium 7.9 mg/dL (8.6-10.8); Carbon Dioxide 29 mEq/L (19-29); Chloride 111 mEq/L (98-109); Glucose 165 mg/dL (70-99); Osmolality,Calculated 315 (280-300); Sodium 146 mEq/L (136-145); eGFR For African Americans > 60 (> 60); eGFR For Non-African Americans 51 (> 60)
[2016-12-26 05:12] LABS: Potassium 5.1 mEq/L (3.5-4.5)
[2016-12-26 05:23] LABS: Hematocrit 39.7 % (37.5-50.1); Hemoglobin 11.6 g/dL (12.9-16.9); Mean Corpuscular HGB Conc 29.2 g/dL (31.6-35.5); Mean Corpuscular Hemoglobin 27.3 pg (28.0-33.3); Mean Corpuscular Volume 93.4 fL (83.0-100.0); Mean Platelet Volume 9.1 fL (9.4-12.4); Platelet Count 178 K/mcL (140-400); Red Blood Count 4.25 M/mcL (4.19-5.50); Red Cell Distribution Width 17.1 % (11.5-14.5)
[2016-12-26 05:24] LABS: Monocytes # 0.7 K/mcL (0.0-1.3)
[2016-12-26 05:46] LABS: Lymphocytes # 0.5 K/mcL (0.6-4.6); Neutrophils # 10.4 K/mcL (1.6-8.9)
[2016-12-26 05:47] LABS: Platelet Estimate Normal (Normal)
[2016-12-26] MEDS: *HR* Heparin 5,000 UNIT/ML VIAL SQ SCH ×3 (05:59→22:18)
[2016-12-26] MEDS: Budesonide Neb 0.5 MG/2 ML IH SCH ×2 (07:41→20:16)
[2016-12-26] MEDS: Pantoprazole 40 MG VIAL IVP SCH (08:15)
--- NOTE | 2016-12-26 09:39 | Pulmonology Progress Note ---
Date of Encounter: 12/26/16 Time of Encounter: 09:37 Assessment and Plan (1) Acute respiratory failure Current Visit: Yes Status: Acute In the postoperative setting. He is doing well on a breathing trial. Continue sedation vacation, and when he is more awake plan on extubating later today. Qualifiers: Respiratory failure complication: unspecified whether with hypoxia or hypercapnia Qualified Code(s): J96.00 - Acute respiratory failure, unspecified whether with hypoxia or hypercapnia (2) Small bowel obstruction due to adhesions Current Visit: Yes Status: Acute Status post operative intervention by Dr. Jones on 12/25/2016. Postoperative care per surgical services. (3) Obstructive sleep apnea Current Visit: No Status: Chronic Currently treated with endotracheal tube and mechanical ventilator. He will need CPAP therapy nightly and while napping after extubation. No clear evidence of chronic hypercapnia or obesity hypoventilation syndrome. (4) COPD (chronic obstructive pulmonary disease) Current Visit: Yes Status: Chronic By history. Continue scheduled bronchodilators. Continue ICU level of care. Qualifiers: COPD type: unspecified COPD Qualified Code(s): J44.9 - Chronic obstructive pulmonary disease, unspecified Subjective Principal diagnosis: Acute respiratory failure Interval history: No acute overnight events. The patient is doing well on a spontaneous breathing trial, but he still rather sleepy and not consistently following commands. Objective PUL Vital signs: Last Vital Signs Temp 99.6 F 12/26/16 09:13 Pulse 126 12/26/16 09:30 Resp 19 12/26/16 09:30 BP 142/93 12/26/16 09:30 Pulse Ox 94 L 12/26/16 09:30 General: Moderately obese white male in to beige and sedated Eyes: nonicteric ENT: The tracheal tube in place Neck: supple, no lymphadenopathy Lungs: Coarse bilateral breath sounds Cardiovascular: regular rate and rhythm Gastrointestinal: soft, non-tender, non-distended, midline dressing is clean dry and intact Integumentary: normal Extremities: no cyanosis, no edema Musculoskeletal: no deformities Neuro: Sedated Psych: Exam deferred Ventilator Settings Ventilator Settings: Ventilator Settings, Last 8 Hours Ventilator Mode CPAP Ventilator Mode CPAP Ventilator Mode CPAP Ventilator Mode CPAP Ventilator Mode A/C Ventilator Mode A/C Ventilator Mode A/C Ventilator Tidal Volume 500 Setting Ventilator Tidal Volume 500 Setting Ventilator Tidal Volume 500 Setting Ventilator Tidal Volume 500 Setting Ventilator Tidal Volume 500 Setting Ventilator Respiratory Rate 12 Setting Ventilator Respiratory Rate 12 Setting Ventilator Respiratory Rate 13 Setting Actual Respiratory Rate 13 Actual Respiratory Rate 13 Actual Respiratory Rate 17 Actual Respiratory Rate 17 Actual Respiratory Rate 12 Actual Respiratory Rate 12 Actual Respiratory Rate 12 Positive End Expiratory 5 Pressure Positive End Expiratory 5 Pressure Positive End Expiratory 5 Pressure Positive End Expiratory 5 Pressure Positive End Expiratory 5 Pressure Positive End Expiratory 5 Pressure Positive End Expiratory 5 Pressure Peak Inspiratory Airway 12 Pressure Peak Inspiratory Airway 12 Pressure Peak Inspiratory Airway 11 Pressure Peak Inspiratory Airway 17 Pressure Peak Inspiratory Airway 34 Pressure Peak Inspiratory Airway 31 Pressure Peak Inspiratory Airway 34 Pressure Results - Laboratory Findings CBC and BMP: 12/26/16 04:52 12/26/16 04:30 PT/INR, D-dimer PT 12.6 Seconds (9.4-12.1) H 12/25/16 03:00 Abnormal lab findings: Abnormal lab results WBC 11.8 K/mcL (4.3-11.1) H 12/26/16 04:52 Hgb 11.6 g/dL (12.9-16.9) L 12/26/16 04:52 MCH 27.3 pg (28.0-33.3) L 12/26/16 04:52 MCHC 29.2 g/dL (31.6-35.5) L 12/26/16 04:52 RDW 17.1 % (11.5-14.5) H 12/26/16 04:52 MPV 9.1 fL (9.4-12.4) L 12/26/16 04:52 Band Neutrophils % 30.0 % (0-4) H 12/26/16 04:52 Metamyelocytes % 2.0 % (0) H 12/26/16 04:52 Neutrophils # 10.4 K/mcL (1.6-8.9) H 12/26/16 04:52 Lymphocytes # 0.5 K/mcL (0.6-4.6) L 12/26/16 04:52 PT 12.6 Seconds (9.4-12.1) H 12/25/16 03:00 Sodium 146 mEq/L (136-145) H 12/26/16 04:30 Potassium 5.1 mEq/L (3.5-4.5) H D 12/26/16 04:30 Chloride 111 mEq/L (98-109) H 12/26/16 04:30 BUN 39 mg/dL (8-26) H 12/26/16 04:30 Creatinine 1.41 mg/dL (0.72-1.25) H 12/26/16 04:30 Est GFR (Non-Af Amer) 51 (> 60) L 12/26/16 04:30 BUN/Creatinine Ratio 28 (6-26) H 12/26/16 04:30 Glucose 165 mg/dL (70-99) H 12/26/16 04:30 POC Glucose 164 (58-89) H 12/26/16 08:14 Calculated Osmolality 315 (280-300) H 12/26/16 04:30 Calcium 7.9 mg/dL (8.6-10.8) L 12/26/16 04:30 Albumin 3.3 g/dL (3.5-5.0) L 12/21/16 00:59 Albumin/Globulin Ratio 1.0 (1.1-2.2) L 12/21/16 00:59 Triglycerides 206 mg/dL (< 150) H 12/24/16 16:50 Ur Specific [place] > 1.030 (1.010-1.025) H 12/21/16 03:40 Urine Blood Trace (Negative) H 12/21/16 03:40 Urine Microscopic RBC 5-15 per hpf (0-3) H 12/21/16 03:40 Ur Squamous Epith Cells Many per lpf (None-Few) H 12/21/16 03:40 Stool Occult Blood Positive (Negative) A 12/21/16 00:46 - Clinical Findings Intake & Output: Intake & Output 12/25/16 12/26/16 12/26/16 23:59 07:59 15:59 Intake Total 212 / 212 365 / 365 Output Total 500 / 500 325 / 325 400 / 400 Balance -288 / -288 40 / 40 -400 / -400 Weight 138.2 kg - VTE Documentation of Mechanical Device: Intermittent pneumatic compression device Consult Discharge Plan - Plan Referrals: Bryce Jones DO [Primary Care Provider] -
[2016-12-26] MEDS ORDERED: Acetaminophen IV 500 MG/50 ML INFUS..BTL IVPB ONE (12:05)
[2016-12-26] MEDS: *HR* HYDROmorphone 2 MG/ML SYRINGE IVP PRN ×3 (12:16→20:30)
[2016-12-26] MEDS: Ondansetron 4 MG/2 ML VIAL IVP PRN ×3 (12:18→23:07)
[2016-12-26] MEDS: 0.9 % Sodium Chloride 1,000 ML IVC SCH (13:32)
[2016-12-26] MEDS: Clinimix E 5%-15% SOLUTION 2,000 ML with MVI, adult with vitamin K 10 ML IV SCH (16:20)
[2016-12-26] MEDS ORDERED: Clinimix E 5%-15% SOLUTION 2,000 ML with MVI, adult with vitamin K 10 ML IV SCH (17:00)
--- NOTE | 2016-12-26 18:50 | General Surgery Progress Note ---
Date of Encounter: 12/26/16 Time of Encounter: 18:48 - Assessment and Plan (1) Partial small bowel obstruction Current Visit: Yes Status: Acute POD#1 #1 lysis of adhesions for 90 minutes #2 small bowel resection Pt. in ICU for initial post-op period d/t extensive comorbidities He was successfully extubated and is oxygenating well on 4L O2 He is alert and conversational Having expected post-op pain Plan to have pt. transferred out of ICU when pulmonology feels it is appropriate WBC: 11.8 Bands: 30 Afebrile Tachycardic: 115 TPN- managed by pipeman NG to LIWS NPO, pain control, antiemetics, IVF NS, GI prophylaxis w/protonix, DVT prophylaxis with subq heparin (2) COPD (chronic obstructive pulmonary disease) Current Visit: No Status: Chronic Management per primary team (medicine) Qualifiers: COPD type: unspecified COPD Qualified Code(s): J44.9 - Chronic obstructive pulmonary disease, unspecified (3) GERD (gastroesophageal reflux disease) Current Visit: No Status: Chronic PPI daily Qualifiers: Esophagitis presence: esophagitis presence not specified Qualified Code(s) : K21.9 - Gastro-esophageal reflux disease without esophagitis (4) HTN (hypertension) Current Visit: No Status: Chronic Improved today Continue Metoprolol 5ml IV every 6 hours Management per medicine service Qualifiers: Hypertension type: essential hypertension Qualified Code(s): I10 - Essential (primary) hypertension (5) Morbid obesity with BMI of 40.0-44.9, adult Current Visit: No Status: Chronic (6) DVT prophylaxis Current Visit: Yes Status: Acute Continue heparin 5,000 units SQ every 8 hours Subjective Patient reports: still having pain, no flatus, no bowel movement Narrative: Patient seen and examined. Post op recovery to commence in ICU d/t comorbidities. Successfully extubated. Oxygenating well on 4L O2. NG in place. Has expected post-op pain. No flatus of BM. Nauseated. Afebrile. Objective Vital Signs - Last 8 Hours Temp Pulse Resp BP Pulse Ox 12/26/16 18:02 115 16 150/86 95 12/26/16 17:00 113 12 122/80 95 12/26/16 16:18 117 12 147/82 94 L 12/26/16 16:05 97.8 F 12/26/16 15:44 97.8 F 119 12 132/72 96 12/26/16 14:12 119 16 119/79 94 L 12/26/16 13:33 113 12 86/72 95 12/26/16 12:11 126 12 127/73 91 L 12/26/16 11:19 21 95 12/26/16 11:12 101.0 F H 121 21 150/86 96 Intake and Output 12/26/16 12/26/16 12/26/16 07:59 15:59 23:59 Intake Total 365 / 365 1000 / 1000 Output Total 325 / 325 560 / 560 350 / 350 Balance 40 / 40 440 / 440 -350 / -350 Intake: IV Fluids 365 / 365 1000 / 1000 0.9 % Sodium Chloride 1, 1000 / 1000 000 ML @ 50 mls/hr IVC . Q20H ANA Rx#:[id number] FentaNYL (PF) 1,000 MCG 110 / 110 In 0.9 % Sodium Chloride 80 ML @ 25 MCG/HR 2.5 mls /hr IVC CONT ANA Rx#: [id number] Diprivan 1,000 mg In 100 255 / 255 ml @ 10 MCG/KG/MIN 8.25 mls/hr IVC .Q12H8M ANA Rx #:[id number] Output: Catheter 175 / 175 560 / 560 350 / 350 Gastric Drainage 150 / 150 Other: Blood Glucose* 135 164 164 - Additional Exam - General physical appearance obese - Respiratory wheezing: bilateral - Cardiovascular Cardiovascular exam: Present: RRR, no murmurs/rubs/gallops - Abdomen Abdomen: Present: Midline incision, expected post op tenderness, no bowel sounds , - Neurologic normal coordination, normal sensation - Psychiatric oriented to time, oriented to person, oriented to place, speech is normal, memory intact - Labs - Labs 12/27/16 03:41 12/27/16 03:41 Diabetes panel 12/26/16 Range/Units 04:30 Sodium 146 H (136-145) mEq/L Potassium 5.1 H D (3.5-4.5) mEq/L Chloride 111 H (98-109) mEq/L Carbon Dioxide 29 (19-29) mEq/L BUN 39 H (8-26) mg/dL Creatinine 1.41 H (0.72-1.25) mg/dL Glucose 165 H (70-99) mg/dL Calcium 7.9 L (8.6-10.8) mg/dL Calcium panel 12/26/16 Range/Units 04:30 Calcium 7.9 L (8.6-10.8) mg/dL Pituitary panel 12/26/16 Range/Units 04:30 Sodium 146 H (136-145) mEq/L Potassium 5.1 H D (3.5-4.5) mEq/L Chloride 111 H (98-109) mEq/L Carbon Dioxide 29 (19-29) mEq/L BUN 39 H (8-26) mg/dL Creatinine 1.41 H (0.72-1.25) mg/dL Glucose 165 H (70-99) mg/dL Calcium 7.9 L (8.6-10.8) mg/dL Adrenal panel 12/26/16 Range/Units 04:30 Sodium 146 H (136-145) mEq/L Potassium 5.1 H D (3.5-4.5) mEq/L Chloride 111 H (98-109) mEq/L Carbon Dioxide 29 (19-29) mEq/L BUN 39 H (8-26) mg/dL Creatinine 1.41 H (0.72-1.25) mg/dL Glucose 165 H (70-99) mg/dL Calcium 7.9 L (8.6-10.8) mg/dL - VTE Documentation of Mechanical Device: Intermittent pneumatic compression device Consult Discharge Plan - Plan Referrals: Bryce Jones DO [Primary Care Provider] - - Attending Attestation I examined this patient and my medical decision-making was reviewed with the ROBOT DESIGNER/PA/Advanced Practice Nurse/Resident Physician. I agree with the documented findings, disposition and treatment plan as described except to the extent set forth below. The patient is seen and evaluated on morning rounds with the resident. He has made tremendous improvement and should be able to come off the ventilator later today. He has no bowel sounds she had. This is an expected postoperative ileus after bowel resection and lysis of adhesions Jose Antonio Jones MD FACS
[2016-12-27] MEDS: *HR* HYDROmorphone 2 MG/ML SYRINGE IVP PRN ×9 (00:02→22:47)
[2016-12-27] MEDS: *HR* Metoprolol 5 MG/5 ML VIAL IVP SCH ×5 (00:02→23:22)
[2016-12-27] MEDS: Insulin LISPRO 300 UNITS/3 ML VIAL SQ SCH ×7 (00:02→22:53)
[2016-12-27] MEDS: Ipratropium/Albuterol Neb 3 ML IH SCH ×7 (00:10→23:19)
[2016-12-27] MEDS: *HR* Promethazine 25 MG/ML VIAL IVP PRN ×3 (03:10→22:53)
[2016-12-27 03:55] LABS: Hematocrit 34.9 % (37.5-50.1); Hemoglobin 10.5 g/dL (12.9-16.9); Mean Corpuscular HGB Conc 30.1 g/dL (31.6-35.5); Mean Corpuscular Hemoglobin 27.8 pg (28.0-33.3); Mean Corpuscular Volume 92.3 fL (83.0-100.0); Mean Platelet Volume 9.2 fL (9.4-12.4); Platelet Count 149 K/mcL (140-400); Red Blood Count 3.78 M/mcL (4.19-5.50); Red Cell Distribution Width 17.1 % (11.5-14.5)
[2016-12-27 04:09] LABS: BUN/Creatinine Ratio 29 (6-26); Calcium 8.4 mg/dL (8.6-10.8); Carbon Dioxide 27 mEq/L (19-29); Chloride 111 mEq/L (98-109); Glucose 176 mg/dL (70-99); Osmolality,Calculated 312 (280-300); Potassium 4.3 mEq/L (3.5-4.5); Sodium 146 mEq/L (136-145); eGFR For African Americans > 60 (> 60); eGFR For Non-African Americans > 60 (> 60)
[2016-12-27 04:11] LABS: Blood Urea Nitrogen 28 mg/dL (8-26)
[2016-12-27 04:24] LABS: Lymphocytes # 0.6 K/mcL (0.6-4.6); Monocytes # 0.6 K/mcL (0.0-1.3); Neutrophils # 7.8 K/mcL (1.6-8.9); Platelet Estimate Normal (Normal)
[2016-12-27] MEDS: *HR* Heparin 5,000 UNIT/ML VIAL SQ SCH ×3 (06:18→21:15)
[2016-12-27] MEDS: 0.9 % Sodium Chloride 1,000 ML IVC SCH (07:41)
[2016-12-27] MEDS: Pantoprazole 40 MG VIAL IVP SCH (07:41)
[2016-12-27] MEDS: Budesonide Neb 0.5 MG/2 ML IH SCH (08:15)
--- NOTE | 2016-12-27 08:39 | Pulmonology Progress Note ---
<Barbara Moreno - Last Filed: 12/27/16 11:45> Date of Encounter: 12/27/16 Time of Encounter: 08:36 Assessment and Plan (1) Small bowel obstruction Current Visit: No Status: Acute Postop day 1 after lysis of adhesions by Dr. Jones Plan: Under care of Dr. Jones. (2) COPD (chronic obstructive pulmonary disease) Current Visit: No Status: Chronic Patient has chronic COPD. He uses a BiPAP at home at night. Was extubated yesterday after surgery. Lung sounds are tight today. No wheezing noted. Patient has an NG tube currently. Patient appears at baseline. He does not appear in any respiratory distress. Plan: Continue to monitor patient. When NG tube was removed with place patient on BiPAP at night. We have added Symbicort today. On DuoNeb's. Qualifiers: COPD type: unspecified COPD Qualified Code(s): J44.9 - Chronic obstructive pulmonary disease, unspecified (3) Obstructive sleep apnea Current Visit: No Status: Chronic We will continue to monitor. Plan: BiPAP after NG tube is removed (4) DVT prophylaxis Current Visit: Yes Status: Acute Plan Heparin Encourage mobilization as soon as cleared by surgery. Subjective Principal diagnosis: Acute respiratory failure Interval history: Patient day 1 status post lysis of adhesions for small bowel obstruction. Under the care of Dr. Jones. Patient brought to ICU after surgery for extubation. Patient has a large body habitus and chronic COPD. He does or BiPAP at home. He currently has an NG tube in which would complicate BiPAP usage while here. He does not appear in any distress. He does state that his abdomen is still sore and was requesting more pain medication. We will increase this today. We will also place patient on Symbicort while he is here. He states he does take this at home as well. He is getting scheduled duo nebs. Objective PUL Vital signs: Last Vital Signs Temp 98.0 F 12/27/16 07:35 Pulse 104 12/27/16 08:00 Resp 14 12/27/16 08:17 BP 141/89 12/27/16 08:00 Pulse Ox 95 12/27/16 08:17 General appearance: no acute distress, alert Eyes: nonicteric ENT: oropharynx moist Neck: supple, no lymphadenopathy Effort: normal Auscultation: bilateral: other (Tight bilaterally) Cardiovascular: regular rate and rhythm Gastrointestinal: hypoactive bowel sounds, soft, tender (Diffusely to palpation) , non-distended Integumentary: normal Extremities: no cyanosis Musculoskeletal: no deformities mood appropriate, affect normal Results - Laboratory Findings CBC and BMP: 12/27/16 03:41 12/27/16 03:41 PT/INR, D-dimer PT 12.6 Seconds (9.4-12.1) H 12/25/16 03:00 Abnormal lab findings: Abnormal lab results RBC 3.78 M/mcL (4.19-5.50) L 12/27/16 03:41 Hgb 10.5 g/dL (12.9-16.9) L 12/27/16 03:41 Hct 34.9 % (37.5-50.1) L 12/27/16 03:41 MCH 27.8 pg (28.0-33.3) L 12/27/16 03:41 MCHC 30.1 g/dL (31.6-35.5) L 12/27/16 03:41 RDW 17.1 % (11.5-14.5) H 12/27/16 03:41 MPV 9.2 fL (9.4-12.4) L 12/27/16 03:41 Band Neutrophils % 16.0 % (0-4) H 12/27/16 03:41 Metamyelocytes % 2.0 % (0) H 12/27/16 03:41 PT 12.6 Seconds (9.4-12.1) H 12/25/16 03:00 Sodium 146 mEq/L (136-145) H 12/27/16 03:41 Chloride 111 mEq/L (98-109) H 12/27/16 03:41 BUN 28 mg/dL (8-26) H D 12/27/16 03:41 BUN/Creatinine Ratio 29 (6-26) H 12/27/16 03:41 Glucose 176 mg/dL (70-99) H 12/27/16 03:41 POC Glucose 146 (58-89) H 12/27/16 07:31 Calculated Osmolality 312 (280-300) H 12/27/16 03:41 Calcium 8.4 mg/dL (8.6-10.8) L 12/27/16 03:41 Phosphorus 1.6 mg/dL (2.3-4.7) L 12/27/16 03:41 Albumin 3.3 g/dL (3.5-5.0) L 12/21/16 00:59 Albumin/Globulin Ratio 1.0 (1.1-2.2) L 12/21/16 00:59 Triglycerides 206 mg/dL (< 150) H 12/24/16 16:50 Ur Specific [place] > 1.030 (1.010-1.025) H 12/21/16 03:40 Urine Blood Trace (Negative) H 12/21/16 03:40 Urine Microscopic RBC 5-15 per hpf (0-3) H 12/21/16 03:40 Ur Squamous Epith Cells Many per lpf (None-Few) H 12/21/16 03:40 Stool Occult Blood Positive (Negative) A 12/21/16 00:46 - Diagnostic Findings Additional studies: Abdomen/Pelvis CT 12/21/16 00:52 IMPRESSION: 1. Partial small bowel obstruction with transition point in the distal jejunum suspected to be due to underlying adhesion. There is no evidence of pneumatosis or perforation. 2. No other significant findings are detected in the abdomen or pelvis. D/ / Bhupinder Lozoya MD / Bhupinder Lozoya MD Interpreting Provider: Bhupinder Lozoya MD Chest X-Ray 12/21/16 05:51 IMPRESSION: Ground-glass attenuation at the left lung base may represent atelectasis or pleural effusion. Developing pneumonitis cannot be excluded. D/ / Bhupinder Lozoya MD / Bhupinder Lozoya MD Interpreting Provider: Bhupinder Lozoya MD Chest/Abdomen X-ray 12/22/16 07:00 IMPRESSION: 1. Left basilar opacity, likely atelectasis. 2. Enteric tube tip and side port overlying the gastric body. 3. Single mildly dilated loop of small bowel in the upper abdomen which is nonspecific and may be related to known small bowel obstruction. D/ / 12/22/2016 09:50:04 Kristen Phillips MD / caitlyn Interpreting Provider: Kristen Phillips MD Small Bowel X-Ray 12/23/16 10:34 IMPRESSION: 1. Dilated loops of small bowel compatible with small bowel obstruction. Follow-up abdominal radiographs can be obtained as clinically desired. D/ / Gene Toledo MD / Gene Toledo MD Interpreting Provider: Gene Toledo MD X-Ray 12/24/16 17:05 IMPRESSION: The NG tube tip and proximal port are in the body of the stomach. D/ / 12/24/2016 18:38:11 Hafsa Sigala MD / destinee Interpreting Provider: Hafsa Sigala MD - Clinical Findings Intake & Output: Intake & Output 12/26/16 12/27/16 12/27/16 23:59 07:59 15:59 Intake Total 1020 / 1020 Output Total 800 / 800 825 / 825 Balance -800 / -800 195 / 195 Weight 137 kg - VTE Documentation of Mechanical Device: Intermittent pneumatic compression device Consult Discharge Plan - Plan Referrals: Bryce Jones DO [Primary Care Provider] - <Morelia Pierson - Last Filed: 12/27/16 16:36> Objective PUL Vital signs: Last Vital Signs Temp 97.6 F 12/27/16 16:04 Pulse 124 12/27/16 15:00 Resp 16 12/27/16 16:26 BP 131/57 12/27/16 15:00 Pulse Ox 92 L 12/27/16 16:26 Results - Laboratory Findings CBC and BMP: 12/27/16 03:41 12/27/16 14:50 PT/INR, D-dimer PT 12.6 Seconds (9.4-12.1) H 12/25/16 03:00 Abnormal lab findings: Abnormal lab results RBC 3.78 M/mcL (4.19-5.50) L 12/27/16 03:41 Hgb 10.5 g/dL (12.9-16.9) L 12/27/16 03:41 Hct 34.9 % (37.5-50.1) L 12/27/16 03:41 MCH 27.8 pg (28.0-33.3) L 12/27/16 03:41 MCHC 30.1 g/dL (31.6-35.5) L 12/27/16 03:41 RDW 17.1 % (11.5-14.5) H 12/27/16 03:41 MPV 9.2 fL (9.4-12.4) L 12/27/16 03:41 Band Neutrophils % 16.0 % (0-4) H 12/27/16 03:41 Metamyelocytes % 2.0 % (0) H 12/27/16 03:41 PT 12.6 Seconds (9.4-12.1) H 12/25/16 03:00 Sodium 146 mEq/L (136-145) H 12/27/16 03:41 Chloride 111 mEq/L (98-109) H 12/27/16 03:41 BUN 28 mg/dL (8-26) H D 12/27/16 03:41 BUN/Creatinine Ratio 29 (6-26) H 12/27/16 03:41 Glucose 176 mg/dL (70-99) H 12/27/16 03:41 POC Glucose 114 (58-89) H 12/27/16 15:37 Calculated Osmolality 312 (280-300) H 12/27/16 03:41 Calcium 8.4 mg/dL (8.6-10.8) L 12/27/16 03:41 Phosphorus 1.6 mg/dL (2.3-4.7) L 12/27/16 14:50 Albumin 3.3 g/dL (3.5-5.0) L 12/21/16 00:59 Albumin/Globulin Ratio 1.0 (1.1-2.2) L 12/21/16 00:59 Triglycerides 206 mg/dL (< 150) H 12/24/16 16:50 Ur Specific [place] > 1.030 (1.010-1.025) H 12/21/16 03:40 Urine Blood Trace (Negative) H 12/21/16 03:40 Urine Microscopic RBC 5-15 per hpf (0-3) H 12/21/16 03:40 Ur Squamous Epith Cells Many per lpf (None-Few) H 12/21/16 03:40 Stool Occult Blood Positive (Negative) A 12/21/16 00:46 - Clinical Findings Intake & Output: Intake & Output 12/27/16 12/27/16 12/27/16 07:59 15:59 23:59 Intake Total 1020 / 1020 0 / 0 2009 Output Total 825 / 825 300 / 300 300 / 300 Balance 195 / 195 -300 / -300 1710 / 1710 Weight 137 kg - Attending Attestation I examined this patient and my medical decision-making was reviewed with the ELECTROPHYSIOLOGY NURSE PRACTITIONER/PA/Advanced Practice Nurse/Resident Physician. I agree with the documented findings, disposition and treatment plan as described except to the extent set forth below. Patient seen and examined. Labs, radiology, chart personally reviewed. Agree with resident's history and physical, assessment, plan with following comments: PRODUCT SAFETY ASSOCIATE: Patient follows commands, Pulmonary: Acceptable oxygenation and ventilation. Added Symbicort and encouraged patient for incentive spirometry. I am still worried about his pulmonary status due to pain and with atelectasis in patient with lung disease that will affect him. Due to his NG tube, BiPAP mask will be difficult to use. Patient need to stay in ICU. Cardiovascular: stable GI: Nutrition per dietary and GI prophylaxis per routine Heme: DVT prophylaxis per routine ID: Continue antibiotics and plan to de-escalation Renal; urine out put and renal funtion reviewed Endorcine: blood glucose is monitored Lines: all lines checked and no evidence of infections Skin: skin care to prevent pressure ulcers per nursing routine care
[2016-12-27] MEDS: Budesonide/Formoterol 160/4.5 MDI IH SCH ×2 (09:08→20:08)
--- NOTE | 2016-12-27 11:24 | General Surgery Progress Note ---
Date of Encounter: 12/27/16 Time of Encounter: 11:21 - Assessment and Plan (1) Partial small bowel obstruction Current Visit: Yes Status: Acute POD#2 #1 lysis of adhesions for 90 minutes #2 small bowel resection Pt. in ICU for initial post-op period d/t extensive comorbidities He was successfully extubated and is oxygenating well on 4L O2 He is sleepy from pain medication Having expected post-op pain Plan to have pt. transferred out of ICU when pulmonology feels it is appropriate WBC: 9.1 Bands: 16 Afebrile Tachycardic: 104 TPN- managed by typing office worker NG to LIWS NPO, pain control, antiemetics, IVF NS, GI prophylaxis w/protonix, DVT prophylaxis with subq heparin (2) COPD (chronic obstructive pulmonary disease) Current Visit: No Status: Chronic Management per primary team (medicine) Qualifiers: COPD type: unspecified COPD Qualified Code(s): J44.9 - Chronic obstructive pulmonary disease, unspecified (3) GERD (gastroesophageal reflux disease) Current Visit: No Status: Chronic PPI daily Qualifiers: Esophagitis presence: esophagitis presence not specified Qualified Code(s) : K21.9 - Gastro-esophageal reflux disease without esophagitis (4) HTN (hypertension) Current Visit: No Status: Chronic Improved today Continue Metoprolol 5ml IV every 6 hours Management per medicine service Qualifiers: Hypertension type: essential hypertension Qualified Code(s): I10 - Essential (primary) hypertension (5) Morbid obesity with BMI of 40.0-44.9, adult Current Visit: No Status: Chronic (6) DVT prophylaxis Current Visit: Yes Status: Acute Continue heparin 5,000 units SQ every 8 hours Subjective Patient reports: still having pain, no flatus, no bowel movement, afebrile Narrative: Pt. just recieved pain medicine and it was difficult for him to respond to questions. No bowel sounds appreciated on exam. no flatus or BM. NG in place with 300 out last 24hrs. He was previously complaining of pain so his pain medicine was increased. Objective Vital Signs - Last 8 Hours Temp Pulse Resp BP Pulse Ox 12/27/16 11:00 110 14 130/74 94 L 12/27/16 10:00 109 14 138/68 93 L 12/27/16 09:00 118 14 129/81 96 12/27/16 08:17 14 95 03/20/17 08:00 104 14 141/89 95 12/27/16 07:35 98.0 F 12/27/16 07:00 108 12 131/71 94 L 12/27/16 06:00 119 20 145/88 96 12/27/16 05:17 99.4 F 12/27/16 05:00 117 18 118/85 95 12/27/16 04:33 112 12/27/16 04:12 12 95 12/27/16 04:00 112 16 117/91 94 L Intake and Output 12/26/16 12/27/16 12/27/16 23:59 07:59 15:59 Intake Total 1020 / 1020 0 / 0 Output Total 800 / 800 825 / 825 Balance -800 / -800 195 / 195 0 / 0 Intake: IV Fluids 1020 / 1020 0.9 % Sodium Chloride 1, 1000 / 1000 000 ML @ 50 mls/hr IVC . Q20H ANA Rx#:[id number] Tube Feeding 0 / 0 Output: Catheter 650 / 650 575 / 575 Gastric Drainage 150 / 150 250 / 250 Other: Weight 137 kg Blood Glucose* 135 146 Patient Weight 12/27/16 23:59 Weight 137 kg - Additional Exam - General physical appearance obese - Respiratory wheezing: bilateral - Cardiovascular Cardiovascular exam: Present: RRR, no murmurs/rubs/gallops - Abdomen Abdomen: Present: Midline incision, expected post op tenderness, no bowel sounds , - Neurologic normal coordination, normal sensation - Psychiatric oriented to time, oriented to person, oriented to place, speech is normal, memory intact - Labs 12/27/16 03:41 12/27/16 03:41 Diabetes panel 12/27/16 Range/Units 03:41 Sodium 146 H (136-145) mEq/L Potassium 4.3 (3.5-4.5) mEq/L Chloride 111 H (98-109) mEq/L Carbon Dioxide 27 (19-29) mEq/L BUN 28 H D (8-26) mg/dL Creatinine 0.97 (0.72-1.25) mg/dL Glucose 176 H (70-99) mg/dL Calcium 8.4 L (8.6-10.8) mg/dL Calcium panel 12/27/16 12/27/16 Range/Units 03:41 03:41 Calcium 8.4 L (8.6-10.8) mg/dL Phosphorus 1.6 L (2.3-4.7) mg/dL Pituitary panel 12/27/16 Range/Units 03:41 Sodium 146 H (136-145) mEq/L Potassium 4.3 (3.5-4.5) mEq/L Chloride 111 H (98-109) mEq/L Carbon Dioxide 27 (19-29) mEq/L BUN 28 H D (8-26) mg/dL Creatinine 0.97 (0.72-1.25) mg/dL Glucose 176 H (70-99) mg/dL Calcium 8.4 L (8.6-10.8) mg/dL Adrenal panel 12/27/16 Range/Units 03:41 Sodium 146 H (136-145) mEq/L Potassium 4.3 (3.5-4.5) mEq/L Chloride 111 H (98-109) mEq/L Carbon Dioxide 27 (19-29) mEq/L BUN 28 H D (8-26) mg/dL Creatinine 0.97 (0.72-1.25) mg/dL Glucose 176 H (70-99) mg/dL Calcium 8.4 L (8.6-10.8) mg/dL - VTE Documentation of Mechanical Device: Intermittent pneumatic compression device Consult Discharge Plan - Plan Referrals: Bryce Jones DO [Primary Care Provider] - - Attending Attestation I examined this patient and my medical decision-making was reviewed with the STREET LIGHT REPAIRER HELPER/PA/Advanced Practice Nurse/Resident Physician. I agree with the documented findings, disposition and treatment plan as described except to the extent set forth below. The patient is seen and evaluated with the resident on morning rounds. The patient is doing quite well off the ventilator. He has no bowel sounds she had and this is an expected postoperative ileus. Because of his lung status. He will be maintained in the intensive care unit today for continued recovery. Jose Antonio Jones MD FACS
[2016-12-27] MEDS: Ondansetron 4 MG/2 ML VIAL IVP PRN ×2 (13:33→18:18)
[2016-12-27 15:08] LABS: Phosphorous 1.6 mg/dL (2.3-4.7); Potassium 4.4 mEq/L (3.5-4.5)
[2016-12-27] MEDS: Clinimix E 5%-15% SOLUTION 2,000 ML with MVI, adult with vitamin K 10 ML IV SCH (16:35)
[2016-12-27] MEDS ORDERED: Clinimix E 5%-15% SOLUTION 2,000 ML with MVI, adult with vitamin K 10 ML IV SCH (17:00)
[2016-12-28] MEDS: Ondansetron 4 MG/2 ML VIAL IVP PRN ×3 (02:27→19:07)
[2016-12-28] MEDS: *HR* HYDROmorphone 2 MG/ML SYRINGE IVP PRN ×6 (02:28→22:10)
[2016-12-28] MEDS: Ipratropium/Albuterol Neb 3 ML IH SCH ×5 (03:57→20:14)
[2016-12-28 04:04] LABS: BUN/Creatinine Ratio 29 (6-26); Blood Urea Nitrogen 24 mg/dL (8-26); Calcium 8.9 mg/dL (8.6-10.8); Carbon Dioxide 30 mEq/L (19-29); Chloride 111 mEq/L (98-109); Glucose 191 mg/dL (70-99); Magnesium 2.2 mg/dL (1.6-2.6); Osmolality,Calculated 309 (280-300); Potassium 4.3 mEq/L (3.5-4.5); Sodium 145 mEq/L (136-145); eGFR For African Americans > 60 (> 60); eGFR For Non-African Americans > 60 (> 60)
[2016-12-28 04:13] LABS: Phosphorous 2.5 mg/dL (2.3-4.7)
[2016-12-28] MEDS: 0.9 % Sodium Chloride 1,000 ML IVC SCH (04:33)
[2016-12-28] MEDS: Insulin LISPRO 300 UNITS/3 ML VIAL SQ SCH ×5 (04:34→21:07)
[2016-12-28] MEDS: *HR* Heparin 5,000 UNIT/ML VIAL SQ SCH ×3 (05:41→22:10)
[2016-12-28] MEDS: *HR* Metoprolol 5 MG/5 ML VIAL IVP SCH ×3 (05:41→16:19)
[2016-12-28] MEDS: Budesonide/Formoterol 160/4.5 MDI IH SCH ×2 (07:23→20:14)
[2016-12-28] MEDS: Pantoprazole 40 MG VIAL IVP SCH (08:09)
--- NOTE | 2016-12-28 09:04 | Pulmonology Progress Note ---
<Morelia Pierson M - Last Filed: 12/28/16 12:59> Objective PUL Vital signs: Last Vital Signs Temp 97.9 F 12/28/16 11:34 Pulse 110 12/28/16 12:00 Resp 18 12/28/16 12:00 BP 139/98 12/28/16 12:00 Pulse Ox 94 L 12/28/16 12:00 Results - Laboratory Findings CBC and BMP: 12/27/16 03:41 12/28/16 03:20 PT/INR, D-dimer PT 12.6 Seconds (9.4-12.1) H 12/25/16 03:00 Abnormal lab findings: Abnormal lab results RBC 3.78 M/mcL (4.19-5.50) L 12/27/16 03:41 Hgb 10.5 g/dL (12.9-16.9) L 12/27/16 03:41 Hct 34.9 % (37.5-50.1) L 12/27/16 03:41 MCH 27.8 pg (28.0-33.3) L 12/27/16 03:41 MCHC 30.1 g/dL (31.6-35.5) L 12/27/16 03:41 RDW 17.1 % (11.5-14.5) H 12/27/16 03:41 MPV 9.2 fL (9.4-12.4) L 12/27/16 03:41 Band Neutrophils % 16.0 % (0-4) H 12/27/16 03:41 Metamyelocytes % 2.0 % (0) H 12/27/16 03:41 PT 12.6 Seconds (9.4-12.1) H 12/25/16 03:00 Chloride 111 mEq/L (98-109) H 12/28/16 03:20 Carbon Dioxide 30 mEq/L (19-29) H 12/28/16 03:20 BUN/Creatinine Ratio 29 (6-26) H 12/28/16 03:20 Glucose 191 mg/dL (70-99) H 12/28/16 03:20 POC Glucose 135 (58-89) H 12/28/16 11:18 Calculated Osmolality 309 (280-300) H 12/28/16 03:20 Albumin 3.3 g/dL (3.5-5.0) L 12/21/16 00:59 Albumin/Globulin Ratio 1.0 (1.1-2.2) L 12/21/16 00:59 Triglycerides 206 mg/dL (< 150) H 12/24/16 16:50 Ur Specific [place] > 1.030 (1.010-1.025) H 12/21/16 03:40 Urine Blood Trace (Negative) H 12/21/16 03:40 Urine Microscopic RBC 5-15 per hpf (0-3) H 12/21/16 03:40 Ur Squamous Epith Cells Many per lpf (None-Few) H 12/21/16 03:40 Stool Occult Blood Positive (Negative) A 12/21/16 00:46 - Clinical Findings Intake & Output: Intake & Output 12/27/16 12/28/16 12/28/16 23:59 07:59 15:59 Intake Total 2265 / 2265 1250 / 1250 0 / 0 Output Total 900 / 900 1150 / 1150 500 / 500 Balance 1365 / 1365 100 / 100 -500 / -500 Weight 139.3 kg Consult Discharge Plan - Plan Referrals: Bryce Jones DO [Primary Care Provider] - - Attending Attestation I examined this patient and my medical decision-making was reviewed with the ENVIRONMENTAL HEALTH INSPECTOR/PA/Advanced Practice Nurse/Resident Physician. I agree with the documented findings, disposition and treatment plan as described except to the extent set forth below. Patient seen and examined. Labs, radiology, chart personally reviewed. Agree with resident's history and physical, assessment, plan with following comments: COSTUME MISTRESS: Patient follows commands, Pulmonary: Acceptable oxygenation and ventilation and due to his tenuous pulmonary status will monitor him another day in ICU. His gastric output is high and I'm concern he could aspirate. Cardiovascular: stable GI: Nutrition per dietary and GI prophylaxis per routine Heme: DVT prophylaxis per routine Renal; urine out put and renal funtion reviewed Endorcine: blood glucose is monitored Lines: all lines checked and no evidence of infections Skin: skin care to prevent pressure ulcers per nursing routine care Discussed with surgery team. <Bryce Donnelly - Last Filed: 12/28/16 15:36> Date of Encounter: 12/28/16 Time of Encounter: 09:04 Assessment and Plan (1) Small bowel obstruction Current Visit: No Status: Acute POD#3 for lysis of adhesions and small bowel resection, post operatively transferred to ICU for continued intubation due to multiple comorbidity of VANI and COPD, he was successfully extubated two days ago, still on NG tube to MARK, surgery has been following, TPN was started yesterday, also on electrolyte protocol, con't postop care and IV pain/antiemetic prn, PT/OT has been consulted , now he is getting up to chairs, still no flatus or bowel movement, spoke to surgery team, will keep him in ICU for one more day for his respiratory status, likely he will be transferred out of ICU to medical floor tomorrow. (2) COPD (chronic obstructive pulmonary disease) Current Visit: No Status: Chronic Currently he is satting 92% on 3L of NC, at home, he is on 3L during the day, he states that his breathing has improved compare to yesterday, con't duoneb ATC , symbicort and oxygen support, not in exacerbation. Qualifiers: COPD type: unspecified COPD Qualified Code(s): J44.9 - Chronic obstructive pulmonary disease, unspecified (3) Obstructive sleep apnea Current Visit: No Status: Chronic When pt can be off of NG tube, we can put him back on BIPAP at bedtime as he uses it at home. (4) DVT prophylaxis Current Visit: Yes Status: Acute Heparin SQ q8hrs. Subjective Principal diagnosis: Acute respiratory failure Interval history: Patient is 61 years old male with a history of multiple abdominal surgeries, came to the ER with chief complaint of abdominal pain, CT scan of the abdomen showed small bowel obstruction, subsequently patient was taken to the OR for lysis of adhesion, transferred to ICU with intubation, extubated two days ago. Patient seen and examined. Patient was sitting in a chair comfortably, nasogastric tube in place, denies nausea or emesis, his breathing has improved compare to yesterday, currently on 3 L nasal cannula satting above 92%, no gas or bowel movement yet. Objective PUL Vital signs: Last Vital Signs Temp 98.7 F 12/28/16 08:59 Pulse 100 12/28/16 08:00 Resp 12 12/28/16 08:00 BP 143/80 12/28/16 08:00 Pulse Ox 91 L 12/28/16 08:00 General appearance: no acute distress, alert Eyes: nonicteric ENT: oropharynx moist Neck: supple Effort: normal Auscultation: bilateral: diminished breath sounds (Upper and lower bilaterally) Cardiovascular: regular rate and rhythm Gastrointestinal: hypoactive bowel sounds, soft, tender (Around the surgical site), non-distended, other (Dressing dry clean intact on surgical site) Integumentary: normal Extremities: no cyanosis, no edema, no clubbing Musculoskeletal: no deformities normal mental status, non-focal exam mood appropriate, affect normal Results - Laboratory Findings CBC and BMP: 12/27/16 03:41 12/28/16 03:20 PT/INR, D-dimer PT 12.6 Seconds (9.4-12.1) H 12/25/16 03:00 Abnormal lab findings: Abnormal lab results RBC 3.78 M/mcL (4.19-5.50) L 12/27/16 03:41 Hgb 10.5 g/dL (12.9-16.9) L 12/27/16 03:41 Hct 34.9 % (37.5-50.1) L 12/27/16 03:41 MCH 27.8 pg (28.0-33.3) L 12/27/16 03:41 MCHC 30.1 g/dL (31.6-35.5) L 12/27/16 03:41 RDW 17.1 % (11.5-14.5) H 12/27/16 03:41 MPV 9.2 fL (9.4-12.4) L 12/27/16 03:41 Band Neutrophils % 16.0 % (0-4) H 12/27/16 03:41 Metamyelocytes % 2.0 % (0) H 12/27/16 03:41 PT 12.6 Seconds (9.4-12.1) H 12/25/16 03:00 Chloride 111 mEq/L (98-109) H 12/28/16 03:20 Carbon Dioxide 30 mEq/L (19-29) H 12/28/16 03:20 BUN/Creatinine Ratio 29 (6-26) H 12/28/16 03:20 Glucose 191 mg/dL (70-99) H 12/28/16 03:20 POC Glucose 128 (58-89) H 12/28/16 07:32 Calculated Osmolality 309 (280-300) H 12/28/16 03:20 Albumin 3.3 g/dL (3.5-5.0) L 12/21/16 00:59 Albumin/Globulin Ratio 1.0 (1.1-2.2) L 12/21/16 00:59 Triglycerides 206 mg/dL (< 150) H 12/24/16 16:50 Ur Specific [place] > 1.030 (1.010-1.025) H 12/21/16 03:40 Urine Blood Trace (Negative) H 12/21/16 03:40 Urine Microscopic RBC 5-15 per hpf (0-3) H 12/21/16 03:40 Ur Squamous Epith Cells Many per lpf (None-Few) H 12/21/16 03:40 Stool Occult Blood Positive (Negative) A 12/21/16 00:46 - Clinical Findings Intake & Output: Intake & Output 12/27/16 12/28/16 12/28/16 23:59 07:59 15:59 Intake Total 2265 / 2265 1250 / 1250 0 / 0 Output Total 900 / 900 1150 / 1150 100 / 100 Balance 1365 / 1365 100 / 100 -100 / -100 Weight 139.3 kg - VTE Documentation of Mechanical Device: Intermittent pneumatic compression device
--- NOTE | 2016-12-28 09:05 | General Surgery Progress Note ---
Date of Encounter: 12/28/16 Time of Encounter: 07:35 - Assessment and Plan (1) Partial small bowel obstruction Current Visit: Yes Status: Acute POD#2 #1 lysis of adhesions for 90 minutes #2 small bowel resection Pt. in ICU for initial post-op period d/t extensive comorbidities He was successfully extubated and is oxygenating well on 4L O2 He is sleepy from pain medication Having expected post-op pain Plan to have pt. transferred out of ICU when pulmonology feels it is appropriate WBC: 9.1 Bands: 16 Afebrile Tachycardic: 104 TPN- managed by seed cleaner operator NG to BLAYNEWS NPO, pain control, antiemetics, IVF NS, GI prophylaxis w/protonix, DVT prophylaxis with subq heparin 12/28/2016. 0904 The patient is seen and evaluated in the intensive care unit. He is comfortable. He really has not moved much since surgery and we will be giving him a chair today. I do not hear any bowel sounds she had in this is an expected postoperative ileus. (2) COPD (chronic obstructive pulmonary disease) Current Visit: No Status: Chronic Management per primary team (medicine) Qualifiers: COPD type: unspecified COPD Qualified Code(s): J44.9 - Chronic obstructive pulmonary disease, unspecified (3) GERD (gastroesophageal reflux disease) Current Visit: No Status: Chronic PPI daily Qualifiers: Esophagitis presence: esophagitis presence not specified Qualified Code(s) : K21.9 - Gastro-esophageal reflux disease without esophagitis (4) HTN (hypertension) Current Visit: No Status: Chronic Improved today Continue Metoprolol 5ml IV every 6 hours Management per medicine service Qualifiers: Hypertension type: essential hypertension Qualified Code(s): I10 - Essential (primary) hypertension (5) Morbid obesity with BMI of 40.0-44.9, adult Current Visit: No Status: Chronic (6) DVT prophylaxis Current Visit: Yes Status: Acute Continue heparin 5,000 units SQ every 8 hours Subjective Narrative: The patient complains of less pain today. The patient also complains of less difficulty breathing. Unfortunately he has not moved since surgery. I recommended that he be up to the chair today. Does not have bowel sounds. Nasogastric tube is still in place and functioning. This is an expected postoperative ileus. Objective Vital Signs - Last 8 Hours Temp Pulse Resp BP Pulse Ox 12/28/16 08:59 98.7 F 12/28/16 08:00 100 12 143/80 91 L 12/28/16 07:23 102 12/28/16 07:00 113 15 157/85 93 L 12/28/16 06:00 93 14 147/82 94 L 12/28/16 05:00 108 18 142/89 95 12/28/16 04:55 98.3 F 12/28/16 04:00 101 16 164/97 98 12/28/16 03:58 16 158/86 95 12/28/16 03:00 101 15 158/86 94 L 12/28/16 02:00 105 16 160/85 96 Intake and Output 12/27/16 12/28/16 12/28/16 23:59 07:59 15:59 Intake Total 2265 / 2265 1250 / 1250 0 / 0 Output Total 900 / 900 1150 / 1150 100 / 100 Balance 1365 / 1365 100 / 100 -100 / -100 Intake: IV Fluids 2265 / 2265 1250 / 1250 Clinimix E 5%-15% 2009 SOLUTION 2,000 ML @ 83.3 mls/hr IV .Q24H ANA with M.v.i. Adult 10 ml Rx#: [id number] 0.9 % Sodium Chloride 1, 1000 / 1000 000 ML @ 50 mls/hr IVC . Q20H ANA Rx#:[id number] Intralipid 20% 250 ML @ 250 / 250 21 mls/hr IVPB MoWeFr@ [facility] Rx#:[id number] Potassium Phosphate 22 255 / 255 MEQ In 0.9 % Sodium Chloride 250 ML @ 40 mls/ hr IVPB ONCE ONE Rx#: [id number] Oral 0 / 0 Output: Catheter 700 / 700 450 / 450 100 / 100 Gastric Drainage 200 / 200 700 / 700 0 / 0 Other: Weight 139.3 kg Blood Glucose* 128 129 128 Patient Weight 12/28/16 23:59 Weight 139.3 kg - General physical appearance obese - Respiratory wheezing: bilateral - Cardiovascular Cardiovascular exam: Present: RRR, no murmurs/rubs/gallops - Abdomen Abdomen: Present: soft, tender - Incision Incision: Present: clean and dry (No bowel sounds this time.) - Psychiatric oriented to time, oriented to person, oriented to place, speech is normal, memory intact - Labs 12/27/16 03:41 12/28/16 03:20 Diabetes panel 12/27/16 12/28/16 Range/Units 14:50 03:20 Sodium 145 (136-145) mEq/L Potassium 4.4 4.3 (3.5-4.5) mEq/L Chloride 111 H (98-109) mEq/L Carbon Dioxide 30 H (19-29) mEq/L BUN 24 (8-26) mg/dL Creatinine 0.83 (0.72-1.25) mg/dL Glucose 191 H (70-99) mg/dL Calcium 8.9 (8.6-10.8) mg/dL Calcium panel 12/27/16 12/28/16 Range/Units 14:50 03:20 Calcium 8.9 (8.6-10.8) mg/dL Phosphorus 1.6 L 2.5 D (2.3-4.7) mg/dL Pituitary panel 12/27/16 12/28/16 Range/Units 14:50 03:20 Sodium 145 (136-145) mEq/L Potassium 4.4 4.3 (3.5-4.5) mEq/L Chloride 111 H (98-109) mEq/L Carbon Dioxide 30 H (19-29) mEq/L BUN 24 (8-26) mg/dL Creatinine 0.83 (0.72-1.25) mg/dL Glucose 191 H (70-99) mg/dL Calcium 8.9 (8.6-10.8) mg/dL Adrenal panel 12/27/16 12/28/16 Range/Units 14:50 03:20 Sodium 145 (136-145) mEq/L Potassium 4.4 4.3 (3.5-4.5) mEq/L Chloride 111 H (98-109) mEq/L Carbon Dioxide 30 H (19-29) mEq/L BUN 24 (8-26) mg/dL Creatinine 0.83 (0.72-1.25) mg/dL Glucose 191 H (70-99) mg/dL Calcium 8.9 (8.6-10.8) mg/dL - VTE Documentation of Mechanical Device: Intermittent pneumatic compression device Consult Discharge Plan - Plan Referrals: Bryce Jones DO [Primary Care Provider] -
[2016-12-28] MEDS ORDERED: *HR* LORazepam 2 MG/ML VIAL IVP ONE ×2 (11:08→15:43)
[2016-12-28] MEDS: *HR* Promethazine 25 MG/ML VIAL IVP PRN ×2 (13:31→22:10)
[2016-12-28] MEDS ORDERED: Clinimix E 5%-15% SOLUTION 2,000 ML, Amino Acids 10% 0 ML with MVI, adult with vitami... IVC SCH (17:00)
[2016-12-28] MEDS ORDERED: Clinimix 5%-20% SOLUTION 2,000 ML with MVI, adult with vitamin K 10 ML, Sodium Phosph... IVC SCH (17:00)
[2016-12-28 23:11] LABS: ABG Base Excess 6.9 mEq/L (-2.0 to 3.0); ABG HCO3 33.5 mEQ/L (21-27); ABG Oxygen Saturation 94 % (95-98); ABG PCO2 58 mmHg (35-45); ABG PH 7.37 pH Units (7.32-7.45); ABG PO2 72 mmHg (85-104); ABG TCO2 35.3 mEq/L (20-26)
[2016-12-28 23:16] LABS: Blood Gas FiO2 32 %
[2016-12-29] MEDS: Ipratropium/Albuterol Neb 3 ML IH SCH ×11 (00:16→22:54)
[2016-12-29] MEDS: Insulin LISPRO 300 UNITS/3 ML VIAL SQ SCH ×6 (00:40→21:47)
[2016-12-29] MEDS: 0.9 % Sodium Chloride 1,000 ML IVC SCH ×2 (00:41→21:45)
[2016-12-29] MEDS: *HR* Metoprolol 5 MG/5 ML VIAL IVP SCH ×4 (00:41→18:45)
[2016-12-29] MEDS: *HR* HYDROmorphone 2 MG/ML SYRINGE IVP PRN ×5 (02:16→21:32)
[2016-12-29 04:00] LABS: Basophils % 0.4 %; Eosinophils # 0.3 K/mcL (0.0-0.6); Eosinophils % 3.8 %; Hematocrit 32.8 % (37.5-50.1); Hemoglobin 9.7 g/dL (12.9-16.9); Immature Granulocytes % 1.8 % (0-4); Lymphocytes # 0.9 K/mcL (0.6-4.6); Lymphocytes % 11.5 %; Mean Corpuscular HGB Conc 29.6 g/dL (31.6-35.5); Mean Corpuscular Hemoglobin 27.2 pg (28.0-33.3); Mean Corpuscular Volume 92.1 fL (83.0-100.0); Mean Platelet Volume 9.2 fL (9.4-12.4); Monocytes # 0.6 K/mcL (0.0-1.3); Monocytes % 7.4 %; Neutrophils # 5.6 K/mcL (1.6-8.9); Nucleated Red Blood Cells 0.5 /100 WBC (0); Platelet Count 158 K/mcL (140-400); Red Blood Count 3.56 M/mcL (4.19-5.50); Red Cell Distribution Width 17.6 % (11.5-14.5); Segmented Neutrophils % 75.1 %
[2016-12-29 04:33] LABS: BUN/Creatinine Ratio 29 (6-26); Blood Urea Nitrogen 23 mg/dL (8-26); Carbon Dioxide 29 mEq/L (19-29); Chloride 112 mEq/L (98-109); Glucose 147 mg/dL (70-99); Magnesium 2.2 mg/dL (1.6-2.6); Osmolality,Calculated 312 (280-300); Phosphorous 3.2 mg/dL (2.3-4.7); Potassium 4.1 mEq/L (3.5-4.5); Sodium 148 mEq/L (136-145); eGFR For African Americans > 60 (> 60); eGFR For Non-African Americans > 60 (> 60)
[2016-12-29 04:37] LABS: Platelet Estimate Normal (Normal)
[2016-12-29] MEDS: *HR* Heparin 5,000 UNIT/ML VIAL SQ SCH ×3 (05:55→21:50)
--- NOTE | 2016-12-29 08:26 | Pulmonology Progress Note ---
<Barbara Moreno - Last Filed: 12/29/16 10:51> Date of Encounter: 12/29/16 Time of Encounter: 08:26 Assessment and Plan (1) COPD (chronic obstructive pulmonary disease) Current Visit: No Status: Chronic Patient has chronic COPD. He was transferred to ICU for continued intubation after surgery due to his multiple comorbidities of VANI and COPD. He was successfully extubated the day of surgery with no complications. He uses a BiPAP at home at night. Surgery is following and patient has NG tube placed. This is being moved to gravity from wall suction today. There is possible removal of the NG tube this afternoon. He does complain of intermittent nausea. Lung sounds are tight today. No wheezing noted. On Symbicort. On prednisone. On DuoNeb nebs every 2 hours. He does not appear in any respiratory distress. ABG performed last night showed a CO2 elevation of 58. His baseline is at 37. Plan: Continue to monitor patient. When NG tube was removed with place patient on BiPAP. On Symbicort. On DuoNeb's. 2 days of prednisone. Pain medication and anti-emetics when necessary. PT/OT on board. Patient to bedside chair as tolerated Likely removal of NG tube today per surgery. Qualifiers: COPD type: unspecified COPD Qualified Code(s): J44.9 - Chronic obstructive pulmonary disease, unspecified (2) Small bowel obstruction Current Visit: No Status: Acute Postop day 4 for lysis of adhesions by Dr. Jones. Bowel sounds have returned. Patient having significant output from his NG. This was placed to gravity today. Plan: Under care of Dr. Jones. Possible NG removal today. (3) Obstructive sleep apnea Current Visit: No Status: Chronic We will continue to monitor. Plan: BiPAP after NG tube is removed (4) DVT prophylaxis Current Visit: Yes Status: Acute Patient being moved to chair during day. PT OT on board. Plan Heparin Encourage movement. Subjective Principal diagnosis: Acute respiratory failure Interval history: Patient status post lysis of adhesions for small bowel obstruction. Under the care of Dr. Jones. Patient brought to ICU after surgery for extubation. Patient has a large body habitus and chronic COPD. He does use BiPAP at home. He currently has an NG tube in which would complicate BiPAP usage while here. He does not appear in any distress. He appears somewhat confused however is aware of the month and year and his location. He is denying any pain at this time. Patient's bowel sounds are turned. Patient's lung sounds are tight. He is getting scheduled duo nebs every 2 hours. We will add steroids. According to surgery that we will likely DC the NG tube. At that time we will place patient on BiPAP. Objective PUL Vital signs: Last Vital Signs Temp 98.1 F 12/29/16 07:40 Pulse 94 12/29/16 06:00 Resp 14 12/29/16 07:31 BP 156/89 12/29/16 07:31 Pulse Ox 91 L 12/29/16 07:31 General appearance: no acute distress, alert Eyes: nonicteric ENT: oropharynx moist Neck: supple, no lymphadenopathy Effort: normal Cardiovascular: regular rate and rhythm Gastrointestinal: normoactive bowel sounds, soft, non-tender, non-distended, other (Large incision to midline of abdomen. Bandage at this time. Bandages appear dry.) Integumentary: normal Extremities: no cyanosis, no edema, pink and warm, pulses normal Musculoskeletal: no deformities normal mental status (Patient aware of month, year, and place that he is out. ) , pupils equal and round mood appropriate, affect normal Results - Laboratory Findings CBC and BMP: 12/29/16 03:50 12/29/16 03:50 ABG ABG pH 7.37 pH Units (7.32-7.45) 12/28/16 22:57 ABG pCO2 58 mmHg (35-45) H 12/28/16 22:57 ABG pO2 72 mmHg (85-104) L 12/28/16 22:57 ABG O2 Saturation 94 % (95-98) L 12/28/16 22:57 PT/INR, D-dimer PT 12.6 Seconds (9.4-12.1) H 12/25/16 03:00 Abnormal lab findings: Abnormal lab results RBC 3.56 M/mcL (4.19-5.50) L 12/29/16 03:50 Hgb 9.7 g/dL (12.9-16.9) L 12/29/16 03:50 Hct 32.8 % (37.5-50.1) L 12/29/16 03:50 MCH 27.2 pg (28.0-33.3) L 12/29/16 03:50 MCHC 29.6 g/dL (31.6-35.5) L 12/29/16 03:50 RDW 17.6 % (11.5-14.5) H 12/29/16 03:50 MPV 9.2 fL (9.4-12.4) L 12/29/16 03:50 Band Neutrophils % 16.0 % (0-4) H 12/27/16 03:41 Metamyelocytes % 2.0 % (0) H 12/27/16 03:41 Nucleated RBCs/100 WBC 0.5 /100 WBC (0) H 12/29/16 03:50 PT 12.6 Seconds (9.4-12.1) H 12/25/16 03:00 ABG pCO2 58 mmHg (35-45) H 12/28/16 22:57 ABG pO2 72 mmHg (85-104) L 12/28/16 22:57 ABG HCO3 33.5 mEQ/L (21-27) H 12/28/16 22:57 ABG Total CO2 35.3 mEq/L (20-26) H 12/28/16 22:57 ABG O2 Saturation 94 % (95-98) L 12/28/16 22:57 ABG Base Excess 6.9 mEq/L (-2.0 to 3.0) H 12/28/16 22:57 Sodium 148 mEq/L (136-145) H 12/29/16 03:50 Chloride 112 mEq/L (98-109) H 12/29/16 03:50 BUN/Creatinine Ratio 29 (6-26) H 12/29/16 03:50 Glucose 147 mg/dL (70-99) H 12/29/16 03:50 POC Glucose 143 (58-89) H 12/29/16 07:42 Calculated Osmolality 312 (280-300) H 12/29/16 03:50 Albumin 3.3 g/dL (3.5-5.0) L 12/21/16 00:59 Albumin/Globulin Ratio 1.0 (1.1-2.2) L 12/21/16 00:59 Prealbumin 11.0 mg/dL (18.0-45.0) L 12/29/16 03:50 Triglycerides 206 mg/dL (< 150) H 12/24/16 16:50 Ur Specific [place] > 1.030 (1.010-1.025) H 12/21/16 03:40 Urine Blood Trace (Negative) H 12/21/16 03:40 Urine Microscopic RBC 5-15 per hpf (0-3) H 12/21/16 03:40 Ur Squamous Epith Cells Many per lpf (None-Few) H 12/21/16 03:40 Stool Occult Blood Positive (Negative) A 12/21/16 00:46 - Clinical Findings Intake & Output: Intake & Output 12/28/16 12/29/16 12/29/16 23:59 07:59 15:59 Intake Total 2009 1000 / 1000 Output Total 425 / 425 1000 / 1000 Balance 1585 / 1585 0 / 0 Weight 139.117 kg - VTE Documentation of Mechanical Device: Intermittent pneumatic compression device Consult Discharge Plan - Plan Referrals: Bryce Jones DO [Primary Care Provider] - <Morelia Pierson - Last Filed: 12/29/16 16:48> Objective PUL Vital signs: Last Vital Signs Temp 97.8 F 12/29/16 15:24 Pulse 96 12/29/16 15:00 Resp 18 12/29/16 16:41 BP 178/94 12/29/16 15:00 Pulse Ox 97 12/29/16 16:41 Results - Laboratory Findings CBC and BMP: 12/29/16 03:50 12/29/16 03:50 ABG ABG pH 7.38 pH Units (7.32-7.45) 12/29/16 13:45 ABG pCO2 55 mmHg (35-45) H 12/29/16 13:45 ABG pO2 117 mmHg (85-104) H 12/29/16 13:45 ABG O2 Saturation 99 % (95-98) H 12/29/16 13:45 PT/INR, D-dimer PT 12.6 Seconds (9.4-12.1) H 12/25/16 03:00 Abnormal lab findings: Abnormal lab results RBC 3.56 M/mcL (4.19-5.50) L 12/29/16 03:50 Hgb 9.7 g/dL (12.9-16.9) L 12/29/16 03:50 Hct 32.8 % (37.5-50.1) L 12/29/16 03:50 MCH 27.2 pg (28.0-33.3) L 12/29/16 03:50 MCHC 29.6 g/dL (31.6-35.5) L 12/29/16 03:50 RDW 17.6 % (11.5-14.5) H 12/29/16 03:50 MPV 9.2 fL (9.4-12.4) L 12/29/16 03:50 Band Neutrophils % 16.0 % (0-4) H 12/27/16 03:41 Metamyelocytes % 2.0 % (0) H 12/27/16 03:41 Nucleated RBCs/100 WBC 0.5 /100 WBC (0) H 12/29/16 03:50 PT 12.6 Seconds (9.4-12.1) H 12/25/16 03:00 ABG pCO2 55 mmHg (35-45) H 12/29/16 13:45 ABG pO2 117 mmHg (85-104) H 12/29/16 13:45 ABG HCO3 32.5 mEQ/L (21-27) H 12/29/16 13:45 ABG Total CO2 34.2 mEq/L (20-26) H 12/29/16 13:45 ABG O2 Saturation 99 % (95-98) H 12/29/16 13:45 ABG Base Excess 6.2 mEq/L (-2.0 to 3.0) H 12/29/16 13:45 Sodium 148 mEq/L (136-145) H 12/29/16 03:50 Chloride 112 mEq/L (98-109) H 12/29/16 03:50 BUN/Creatinine Ratio 29 (6-26) H 12/29/16 03:50 Glucose 147 mg/dL (70-99) H 12/29/16 03:50 POC Glucose 169 (58-89) H 12/29/16 15:26 Calculated Osmolality 312 (280-300) H 12/29/16 03:50 Albumin 3.3 g/dL (3.5-5.0) L 12/21/16 00:59 Albumin/Globulin Ratio 1.0 (1.1-2.2) L 12/21/16 00:59 Prealbumin 11.0 mg/dL (18.0-45.0) L 12/29/16 03:50 Triglycerides 206 mg/dL (< 150) H 12/24/16 16:50 Ur Specific [place] > 1.030 (1.010-1.025) H 12/21/16 03:40 Urine Blood Trace (Negative) H 12/21/16 03:40 Urine Microscopic RBC 5-15 per hpf (0-3) H 12/21/16 03:40 Ur Squamous Epith Cells Many per lpf (None-Few) H 12/21/16 03:40 Stool Occult Blood Positive (Negative) A 12/21/16 00:46 - Clinical Findings Intake & Output: Intake & Output 12/29/16 12/29/16 12/29/16 07:59 15:59 23:59 Intake Total 1000 / 1000 Output Total 1000 / 1000 860 / 860 Balance 0 / 0 -860 / -860 Weight 139.117 kg - Attending Attestation I examined this patient and my medical decision-making was reviewed with the UNIT TENDER/PA/Advanced Practice Nurse/Resident Physician. I agree with the documented findings, disposition and treatment plan as described except to the extent set forth below. Patient seen and examined. Labs, radiology, chart personally reviewed. Agree with resident's history and physical, assessment, plan with following comments: NET FRONT END DEVELOPER: Patient follows commands, Patient lethargic Pulmonary: Acute respiratory distress and patient is given IV steroid and trial of BiPAP, patient is responding to NIV and he understand if he doesn't respond, then he will need invasive intubation. Cardiovascular: stable GI: Nutrition per dietary and GI prophylaxis per routine Heme: DVT prophylaxis per routine ID: Continue antibiotics and plan to de-escalation Renal; urine out put and renal funtion reviewed Endorcine: blood glucose is monitored Lines: all lines checked and no evidence of infections Skin: skin care to prevent pressure ulcers per nursing routine care Discussed with family and surgeon.
[2016-12-29] MEDS: Pantoprazole 40 MG VIAL IVP SCH (09:11)
[2016-12-29] MEDS: methylPREDNISolone 125 MG/2 ML VIAL IVP SCH ×2 (09:11→16:58)
[2016-12-29] MEDS: Ondansetron 4 MG/2 ML VIAL IVP PRN (09:12)
[2016-12-29] MEDS: Budesonide/Formoterol 160/4.5 MDI IH SCH ×2 (10:20→22:54)
[2016-12-29 12:25] LABS: ABG Base Excess 3.8 mEq/L (-2.0 to 3.0); ABG HCO3 30.4 mEQ/L (21-27); ABG Oxygen Saturation 92 % (95-98); ABG PCO2 55 mmHg (35-45); ABG PH 7.35 pH Units (7.32-7.45); ABG PO2 67 mmHg (85-104); ABG TCO2 32.1 mEq/L (20-26)
[2016-12-29 12:27] LABS: Blood Gas FiO2 32 %; Blood Gas Liter Flow 3 L/MIN
[2016-12-29 14:00] LABS: ABG Base Excess 6.2 mEq/L (-2.0 to 3.0); ABG HCO3 32.5 mEQ/L (21-27); ABG Oxygen Saturation 99 % (95-98); ABG PCO2 55 mmHg (35-45); ABG PH 7.38 pH Units (7.32-7.45); ABG PO2 117 mmHg (85-104); ABG TCO2 34.2 mEq/L (20-26)
[2016-12-29 14:01] LABS: Blood Gas FiO2 35 %
[2016-12-29] MEDS ORDERED: CloNIDine Patch 0.1 MG PATCH (WEEKLY) TD SCH (15:15)
--- NOTE | 2016-12-29 15:55 | General Surgery Progress Note ---
Date of Encounter: 12/29/16 Time of Encounter: 08:00 - Assessment and Plan (1) Partial small bowel obstruction Current Visit: Yes Status: Acute POD#4 #1 lysis of adhesions for 90 minutes #2 small bowel resection Pt. in ICU for initial post-op period d/t extensive comorbidities Having expected post-op pain Plan to have pt. transferred out of ICU when pulmonology feels it is appropriate NG-tube: pt. having bowel sounds. Pt. is also requiring noninvasive mechanical ventilation with Bilevel. Will hang NG to a garcia. If his gastric output is <50cc in 6 hours, will remove NG. If gastric output is >50cc in 6 hours, will return to [facility]WS TPN- managed by audit clerk NPO, pain control, antiemetics, IVF NS, GI prophylaxis w/protonix, DVT prophylaxis with subq heparin (2) COPD (chronic obstructive pulmonary disease) Current Visit: No Status: Chronic Management per primary team Qualifiers: COPD type: unspecified COPD Qualified Code(s): J44.9 - Chronic obstructive pulmonary disease, unspecified (3) GERD (gastroesophageal reflux disease) Current Visit: No Status: Chronic PPI daily Qualifiers: Esophagitis presence: esophagitis presence not specified Qualified Code(s) : K21.9 - Gastro-esophageal reflux disease without esophagitis (4) HTN (hypertension) Current Visit: No Status: Chronic Hydralazine IV and metoprolol IV PRN Management per primary service Qualifiers: Hypertension type: essential hypertension Qualified Code(s): I10 - Essential (primary) hypertension (5) Morbid obesity with BMI of 40.0-44.9, adult Current Visit: No Status: Chronic (6) DVT prophylaxis Current Visit: Yes Status: Acute Continue heparin 5,000 units SQ every 8 hours Subjective Patient reports: still having pain, pain is less, no bowel movement, afebrile Narrative: Patient seen and examined. Remains in ICU. Patient has bowel sounds. Still having moderate output from NG tube. Objective Vital Signs - Last 8 Hours Temp Pulse Resp BP Pulse Ox 12/29/16 15:24 97.8 F 12/29/16 15:00 96 18 178/94 97 12/29/16 14:12 13 99 12/29/16 14:00 84 16 172/88 98 12/29/16 13:00 93 13 158/86 99 12/29/16 12:31 16 191/96 98 12/29/16 12:00 97.7 F 84 26 191/96 92 L 12/29/16 11:00 114 26 178/109 92 L 12/29/16 10:00 122 22 174/89 94 L 12/29/16 09:00 109 16 194/94 94 L 12/29/16 08:00 109 20 172/85 94 L Intake and Output 12/28/16 12/29/16 12/29/16 23:59 07:59 15:59 Intake Total 2009 1000 / 1000 Output Total 425 / 425 1000 / 1000 860 / 860 Balance 1585 / 1585 0 / 0 -860 / -860 Intake: IV Fluids 2009 1000 / 1000 Clinimix E 5%-15% 2009 SOLUTION 2,000 ML @ 83.3 mls/hr IV .Q24H ANA with M.v.i. Adult 10 ml Rx#: [id number] 0.9 % Sodium Chloride 1, 1000 / 1000 000 ML @ 50 mls/hr IVC . Q20H ANA Rx#:[id number] Output: Catheter 325 / 325 800 / 800 600 / 600 Gastric Drainage 100 / 100 200 / 200 260 / 260 Other: Weight 139.117 kg Blood Glucose* 129 143 169 Patient Weight 12/29/16 23:59 Weight 139.117 kg - Additional Exam - General physical appearance obese - Respiratory wheezing: bilateral - Cardiovascular Cardiovascular exam: Present: RRR, no murmurs/rubs/gallops - Abdomen Abdomen: Present: soft, tender - Incision Incision: Present: clean and dry (+ bowel sounds this time.) - Psychiatric oriented to time, oriented to person, oriented to place, speech is normal, memory intact - Labs 12/29/16 03:50 12/30/16 04:01 Diabetes panel 12/29/16 Range/Units 03:50 Sodium 148 H (136-145) mEq/L Potassium 4.1 (3.5-4.5) mEq/L Chloride 112 H (98-109) mEq/L Carbon Dioxide 29 (19-29) mEq/L BUN 23 (8-26) mg/dL Creatinine 0.80 (0.72-1.25) mg/dL Glucose 147 H (70-99) mg/dL Calcium 9.0 (8.6-10.8) mg/dL Calcium panel 12/29/16 Range/Units 03:50 Calcium 9.0 (8.6-10.8) mg/dL Phosphorus 3.2 (2.3-4.7) mg/dL Pituitary panel 12/29/16 Range/Units 03:50 Sodium 148 H (136-145) mEq/L Potassium 4.1 (3.5-4.5) mEq/L Chloride 112 H (98-109) mEq/L Carbon Dioxide 29 (19-29) mEq/L BUN 23 (8-26) mg/dL Creatinine 0.80 (0.72-1.25) mg/dL Glucose 147 H (70-99) mg/dL Calcium 9.0 (8.6-10.8) mg/dL Adrenal panel 12/29/16 Range/Units 03:50 Sodium 148 H (136-145) mEq/L Potassium 4.1 (3.5-4.5) mEq/L Chloride 112 H (98-109) mEq/L Carbon Dioxide 29 (19-29) mEq/L BUN 23 (8-26) mg/dL Creatinine 0.80 (0.72-1.25) mg/dL Glucose 147 H (70-99) mg/dL Calcium 9.0 (8.6-10.8) mg/dL - VTE Documentation of Mechanical Device: Intermittent pneumatic compression device Consult Discharge Plan - Plan Referrals: Bryce Jones DO [Primary Care Provider] - - Attending Attestation I examined this patient and my medical decision-making was reviewed with the BURGLAR ALARM ASSEMBLER/PA/Advanced Practice Nurse/Resident Physician. I agree with the documented findings, disposition and treatment plan as described except to the extent set forth below. The patient is seen in evaluated with the resident on morning rounds. He has a few bowel sounds. He continues to struggle with his respiratory status. He will be maintained in the intensive care unit until medically stable. Jose Antonio Jones MD FACS
[2016-12-29] MEDS ORDERED: MVI IVC SCH (17:00)
[2016-12-29] MEDS ORDERED: CLINIMIX IVC SCH (17:00)
[2016-12-29] MEDS ORDERED: AMINO ACIDS 10% IVC SCH (17:00)
[2016-12-29] MEDS ORDERED: [UNRECOGNIZED DRUG - OTHER] IVC SCH (17:00)
[2016-12-29] MEDS: *HR* Promethazine 25 MG/ML VIAL IVP PRN (21:33)
[2016-12-30] MEDS: Ipratropium/Albuterol Neb 3 ML IH SCH ×11 (00:08→23:42)
[2016-12-30] MEDS: methylPREDNISolone 125 MG/2 ML VIAL IVP SCH ×3 (00:42→17:26)
[2016-12-30] MEDS: *HR* HYDROmorphone 2 MG/ML SYRINGE IVP PRN ×6 (00:42→20:49)
[2016-12-30] MEDS: Insulin LISPRO 300 UNITS/3 ML VIAL SQ SCH ×4 (00:43→20:51)
[2016-12-30] MEDS: *HR* Metoprolol 5 MG/5 ML VIAL IVP SCH ×4 (00:43→17:27)
[2016-12-30] MEDS: *HR* Promethazine 25 MG/ML VIAL IVP PRN ×3 (03:54→21:01)
[2016-12-30 04:26] LABS: BUN/Creatinine Ratio 29 (6-26); Blood Urea Nitrogen 24 mg/dL (8-26); Carbon Dioxide 26 mEq/L (19-29); Chloride 109 mEq/L (98-109); Glucose 238 mg/dL (70-99); Osmolality,Calculated 310 (280-300); Potassium 4.6 mEq/L (3.5-4.5); Sodium 144 mEq/L (136-145); eGFR For African Americans > 60 (> 60); eGFR For Non-African Americans > 60 (> 60)
[2016-12-30 04:38] LABS: ABG HCO3 31.2 mEQ/L (21-27); ABG Oxygen Saturation 98 % (95-98); ABG PCO2 54 mmHg (35-45); ABG PH 7.37 pH Units (7.32-7.45); ABG PO2 100 mmHg (85-104); ABG TCO2 32.9 mEq/L (20-26)
[2016-12-30 04:42] LABS: Blood Gas FiO2 35 %
[2016-12-30] MEDS: *HR* Heparin 5,000 UNIT/ML VIAL SQ SCH ×3 (06:17→20:52)
[2016-12-30] MEDS: Budesonide/Formoterol 160/4.5 MDI IH SCH ×2 (07:44→20:17)
[2016-12-30] MEDS ORDERED: Insulin LISPRO 300 UNITS/3 ML VIAL SQ SCH (08:13)
[2016-12-30] MEDS ORDERED: Furosemide 20 MG/2 ML VIAL IVP ONE (08:18)
--- NOTE | 2016-12-30 08:23 | Pulmonology Progress Note ---
<Barbara Moreno - Last Filed: 12/30/16 11:26> Date of Encounter: 12/30/16 Time of Encounter: 08:19 Assessment and Plan (1) COPD (chronic obstructive pulmonary disease) Current Visit: No Status: Chronic Patient has chronic COPD. He was transferred to ICU for continued intubation after surgery due to his multiple comorbidities of VANI and COPD. He was successfully extubated the day of surgery with no complications. He uses a BiPAP at home at night. Surgery is following and patient has NG tube placed. He still has a large amount of fluid removed from the NG daily. He is on Symbicort, solumedrol,and DuoNeb nebs every 3 hours. He does not appear in any respiratory distress. Pt reports that this is his normal respiratory status. Patient's lung sounds on left appear mildly wet. He also has some pedal edema bilaterally. We will add Lasix today. He is requiring high dose pain meds. It appears as if he chronically takes pain medication at home. I have counseled him on only using the medication if necessary due to it slowing down his gut transport. He expresses understanding. Pt is also requesting water, klonopin and reglan. He is NPO status until surgery clear him. I have discussed with him that he is now on a clonidine patch to help with the withdraw from the klonopin. I have also discussed that he just had a recent bowel surgery and we were holding the reglan currently. Plan: Continue to monitor patient. When NG tube was removed with place patient on BiPAP. On Symbicort. On DuoNeb's. 2 days of prednisone. Pain medication and anti-emetics when necessary. PT/OT on board. Patient to bedside chair as tolerated Lasix 20 mg. with increased urine out put noted. Increasing insulin to medium dose for protocol. Likely hyperglycemic due to steroid use. We will allow patient to be on and off BiPAP throughout the day. NPO status until cleared by surgery Discharge from ICU to floor today Qualifiers: COPD type: unspecified COPD Qualified Code(s): J44.9 - Chronic obstructive pulmonary disease, unspecified (2) Small bowel obstruction Current Visit: No Status: Acute Postop day 5 for lysis of adhesions by Dr. Jones. Bowel sounds have returned. Pt had a large BM today. Patient having significant output from his NG it is to wall suction. Plan: Under care of Dr. Jones. (3) Obstructive sleep apnea Current Visit: No Status: Chronic We will continue to monitor. Plan: BiPAP intermittently today. (4) DVT prophylaxis Current Visit: Yes Status: Acute Patient being moved to chair during day. Plan Heparin Pt up at bedside PT/ OT on board Encourage movement. Subjective Principal diagnosis: Acute respiratory failure Interval history: Patient status post lysis of adhesions for small bowel obstruction. Under the care of Dr. Jones. Patient brought to ICU after surgery for extubation. Patient has a large body habitus and chronic COPD. He does use BiPAP at home. He currently has an NG tube in which complicates BiPAP usage while here. He does not appear in any distress. He is alert and oriented. He is denying any pain at this time. Patient's bowel sounds present in the lower quadrants. Patient's lung sounds are tight and slightly wet on the left lower. He is getting scheduled duo nebs every 3 hours. He is on day 2 of 60mg solu-Medrol. Patient was placed on BiPAP yesterday and tolerated it well. We will use BiPAP intermittently today. We will also add Lasix due to patient's new pedal edema and mildly wet lung sounds. His blood pressure is more controlled today. Yesterday we did increase his Toprol dose and added a clonidine patch. He takes Klonopin scheduled at home. There may have been a withdrawal component to his hypertension initially. Pt up in chair at bedside. He is in no distress. He did have a large bowel movement and is requesting water. Awaiting surgery to remove NPO status until he is permitted for this. He is provided with moist sponges to wet his mouth. Objective PUL Vital signs: Last Vital Signs Temp 97.7 F 12/30/16 07:00 Pulse 86 12/30/16 07:00 Resp 15 12/30/16 07:00 BP 160/95 12/30/16 07:00 Pulse Ox 98 12/30/16 07:00 General appearance: no acute distress, alert Eyes: nonicteric ENT: oropharynx moist Neck: supple, no lymphadenopathy Effort: normal (Pt reports this is his normal respiratory status. That he is breathing like he genrally does at home. ) Cardiovascular: regular rate and rhythm Gastrointestinal: normoactive bowel sounds, soft, non-tender, non-distended, other (large incision to midline abdomen. Bandaged, clean, and dry.) Integumentary: normal Extremities: no cyanosis, other (mild pitting edema to lower extremities) Musculoskeletal: no deformities Gait: normal posture normal mental status, non-focal exam, pupils equal and round, motor strength normal and symmetric mood appropriate, affect normal Results - Laboratory Findings CBC and BMP: 12/29/16 03:50 12/30/16 04:01 ABG ABG pH 7.37 pH Units (7.32-7.45) 12/30/16 04:27 ABG pCO2 54 mmHg (35-45) H 12/30/16 04:27 ABG pO2 100 mmHg (85-104) 12/30/16 04:27 ABG O2 Saturation 98 % (95-98) 12/30/16 04:27 PT/INR, D-dimer PT 12.6 Seconds (9.4-12.1) H 12/25/16 03:00 Abnormal lab findings: Abnormal lab results RBC 3.56 M/mcL (4.19-5.50) L 12/29/16 03:50 Hgb 9.7 g/dL (12.9-16.9) L 12/29/16 03:50 Hct 32.8 % (37.5-50.1) L 12/29/16 03:50 MCH 27.2 pg (28.0-33.3) L 12/29/16 03:50 MCHC 29.6 g/dL (31.6-35.5) L 12/29/16 03:50 RDW 17.6 % (11.5-14.5) H 12/29/16 03:50 MPV 9.2 fL (9.4-12.4) L 12/29/16 03:50 Band Neutrophils % 16.0 % (0-4) H 12/27/16 03:41 Metamyelocytes % 2.0 % (0) H 12/27/16 03:41 Nucleated RBCs/100 WBC 0.5 /100 WBC (0) H 12/29/16 03:50 PT 12.6 Seconds (9.4-12.1) H 12/25/16 03:00 ABG pCO2 54 mmHg (35-45) H 12/30/16 04:27 ABG HCO3 31.2 mEQ/L (21-27) H 12/30/16 04:27 ABG Total CO2 32.9 mEq/L (20-26) H 12/30/16 04:27 ABG Base Excess 5.0 mEq/L (-2.0 to 3.0) H 12/30/16 04:27 Potassium 4.6 mEq/L (3.5-4.5) H 12/30/16 04:01 BUN/Creatinine Ratio 29 (6-26) H 12/30/16 04:01 Glucose 238 mg/dL (70-99) H 12/30/16 04:01 POC Glucose 239 (58-89) H 12/30/16 07:41 Calculated Osmolality 310 (280-300) H 12/30/16 04:01 Albumin 3.3 g/dL (3.5-5.0) L 12/21/16 00:59 Albumin/Globulin Ratio 1.0 (1.1-2.2) L 12/21/16 00:59 Prealbumin 11.0 mg/dL (18.0-45.0) L 12/29/16 03:50 Triglycerides 206 mg/dL (< 150) H 12/24/16 16:50 Ur Specific [place] > 1.030 (1.010-1.025) H 12/21/16 03:40 Urine Blood Trace (Negative) H 12/21/16 03:40 Urine Microscopic RBC 5-15 per hpf (0-3) H 12/21/16 03:40 Ur Squamous Epith Cells Many per lpf (None-Few) H 12/21/16 03:40 Stool Occult Blood Positive (Negative) A 12/21/16 00:46 - Clinical Findings Intake & Output: Intake & Output 12/29/16 12/30/16 12/30/16 23:59 07:59 15:59 Intake Total 1000 / 1000 0 / 0 Output Total 525 / 525 725 / 725 Balance 475 / 475 -725 / -725 Weight 136.3 kg - VTE Documentation of Mechanical Device: Intermittent pneumatic compression device Consult Discharge Plan - Plan Referrals: Bryce Jones DO [Primary Care Provider] - <Morelia Pierson - Last Filed: 12/30/16 16:00> Objective PUL Vital signs: Last Vital Signs Temp 98.4 F 12/30/16 12:18 Pulse 100 12/30/16 14:00 Resp 20 12/30/16 14:00 BP 163/80 12/30/16 14:00 Pulse Ox 91 L 12/30/16 14:00 Results - Laboratory Findings CBC and BMP: 12/29/16 03:50 12/30/16 04:01 ABG ABG pH 7.37 pH Units (7.32-7.45) 12/30/16 04:27 ABG pCO2 54 mmHg (35-45) H 12/30/16 04:27 ABG pO2 100 mmHg (85-104) 12/30/16 04:27 ABG O2 Saturation 98 % (95-98) 12/30/16 04:27 PT/INR, D-dimer PT 12.6 Seconds (9.4-12.1) H 12/25/16 03:00 Abnormal lab findings: Abnormal lab results RBC 3.56 M/mcL (4.19-5.50) L 12/29/16 03:50 Hgb 9.7 g/dL (12.9-16.9) L 12/29/16 03:50 Hct 32.8 % (37.5-50.1) L 12/29/16 03:50 MCH 27.2 pg (28.0-33.3) L 12/29/16 03:50 MCHC 29.6 g/dL (31.6-35.5) L 12/29/16 03:50 RDW 17.6 % (11.5-14.5) H 12/29/16 03:50 MPV 9.2 fL (9.4-12.4) L 12/29/16 03:50 Band Neutrophils % 16.0 % (0-4) H 12/27/16 03:41 Metamyelocytes % 2.0 % (0) H 12/27/16 03:41 Nucleated RBCs/100 WBC 0.5 /100 WBC (0) H 12/29/16 03:50 PT 12.6 Seconds (9.4-12.1) H 12/25/16 03:00 ABG pCO2 54 mmHg (35-45) H 12/30/16 04:27 ABG HCO3 31.2 mEQ/L (21-27) H 12/30/16 04:27 ABG Total CO2 32.9 mEq/L (20-26) H 12/30/16 04:27 ABG Base Excess 5.0 mEq/L (-2.0 to 3.0) H 12/30/16 04:27 Potassium 4.6 mEq/L (3.5-4.5) H 12/30/16 04:01 BUN/Creatinine Ratio 29 (6-26) H 12/30/16 04:01 Glucose 238 mg/dL (70-99) H 12/30/16 04:01 POC Glucose 173 (58-89) H 12/30/16 15:18 Calculated Osmolality 310 (280-300) H 12/30/16 04:01 Albumin 3.3 g/dL (3.5-5.0) L 12/21/16 00:59 Albumin/Globulin Ratio 1.0 (1.1-2.2) L 12/21/16 00:59 Prealbumin 11.0 mg/dL (18.0-45.0) L 12/29/16 03:50 Triglycerides 206 mg/dL (< 150) H 12/24/16 16:50 Ur Specific [place] > 1.030 (1.010-1.025) H 12/21/16 03:40 Urine Blood Trace (Negative) H 12/21/16 03:40 Urine Microscopic RBC 5-15 per hpf (0-3) H 12/21/16 03:40 Ur Squamous Epith Cells Many per lpf (None-Few) H 12/21/16 03:40 Stool Occult Blood Positive (Negative) A 12/21/16 00:46 - Clinical Findings Intake & Output: Intake & Output 12/29/16 12/30/16 12/30/16 23:59 07:59 15:59 Intake Total 1000 / 1000 0 / 0 Output Total 525 / 525 725 / 725 1400 / 1400 Balance 475 / 475 -725 / -725 -1400 / -1400 Weight 136.3 kg - Attending Attestation I examined this patient and my medical decision-making was reviewed with the JOB SERVICE SPECIALIST/PA/Advanced Practice Nurse/Resident Physician. I agree with the documented findings, disposition and treatment plan as described except to the extent set forth below. Patient seen and examined. Labs, radiology, chart personally reviewed. Agree with resident's history and physical, assessment, plan with following comments: DRUG DISCOVERY INFORMATICS SPECIALIST: Patient follows commands, Pulmonary: Acceptable oxygenation and ventilation. Patient is feeling better and can use NIV on-off and trial of high flow. Patient can be transferred to 2 N Cardiovascular: stable GI: Nutrition per dietary and GI prophylaxis per routine Heme: DVT prophylaxis per routine Renal; urine out put and renal funtion reviewed Endorcine: blood glucose is monitored Lines: all lines checked and no evidence of infections Skin: skin care to prevent pressure ulcers per nursing routine care
[2016-12-30] MEDS: Ondansetron 4 MG/2 ML VIAL IVP PRN (08:47)
[2016-12-30] MEDS: Pantoprazole 40 MG VIAL IVP SCH (09:13)
--- NOTE | 2016-12-30 09:13 | General Surgery Progress Note ---
Date of Encounter: 12/30/16 Time of Encounter: 09:10 - Assessment and Plan (1) Partial small bowel obstruction Current Visit: Yes Status: Acute POD#5 #1 lysis of adhesions for 90 minutes #2 small bowel resection Pt. in ICU for initial post-op period d/t extensive comorbidities Having expected post-op pain Plan to have pt. transferred out of ICU when pulmonology feels it is appropriate NG-tube: pt. having bowel sounds. Pt. is also requiring noninvasive mechanical ventilation with Bilevel. Continues to have moderate output in NG tube, 635cc in last 24 hours. There is risk for aspiration d/t large amounts of NG output. Must proceed cautiously with NG removal as pt. has underlying poor lung function. Will follow NG output today and if it is minimal, will consider removing NG tube. TPN- managed by structural engineering project manager NPO, pain control, antiemetics, IVF NS, GI prophylaxis w/protonix, DVT prophylaxis with subq heparin (2) COPD (chronic obstructive pulmonary disease) Current Visit: No Status: Chronic Management per primary team Qualifiers: COPD type: unspecified COPD Qualified Code(s): J44.9 - Chronic obstructive pulmonary disease, unspecified (3) GERD (gastroesophageal reflux disease) Current Visit: No Status: Chronic PPI daily Qualifiers: Esophagitis presence: esophagitis presence not specified Qualified Code(s) : K21.9 - Gastro-esophageal reflux disease without esophagitis (4) HTN (hypertension) Current Visit: No Status: Chronic Hydralazine IV and metoprolol IV PRN Management per primary service Qualifiers: Hypertension type: essential hypertension Qualified Code(s): I10 - Essential (primary) hypertension (5) Morbid obesity with BMI of 40.0-44.9, adult Current Visit: No Status: Chronic (6) DVT prophylaxis Current Visit: Yes Status: Acute Continue heparin 5,000 units SQ every 8 hours Subjective Patient reports: still having pain, no flatus, no bowel movement, afebrile Narrative: Patient seen and examined. Currently on Bilevel to maintain oxygenation Had 635cc output in NG last 24hours. Bowel sounds are beginning. No flatus. No BM. Afebrile. Objective Vital Signs - Last 8 Hours Temp Pulse Resp BP Pulse Ox 12/30/16 08:22 97.7 F 12/30/16 07:44 15 97 12/30/16 07:00 97.7 F 86 15 160/95 98 12/30/16 06:00 77 16 142/75 97 12/30/16 05:02 17 98 12/30/16 05:00 86 12 130/92 95 12/30/16 04:00 97 16 149/82 96 12/30/16 03:50 86 12/30/16 03:26 13 97 12/30/16 03:00 80 16 137/88 95 12/30/16 02:00 82 12 128/76 97 Intake and Output 12/29/16 12/30/16 12/30/16 23:59 07:59 15:59 Intake Total 1000 / 1000 0 / 0 Output Total 525 / 525 725 / 725 200 / 200 Balance 475 / 475 -725 / -725 -200 / -200 Intake: IV Fluids 1000 / 1000 0.9 % Sodium Chloride 1, 1000 / 1000 000 ML @ 50 mls/hr IVC . Q20H [facility] Rx#:[id number] Oral 0 / 0 Output: Catheter 350 / 350 575 / 575 200 / 200 Gastric Drainage 175 / 175 150 / 150 0 / 0 Other: Weight 136.3 kg Blood Glucose* 179 180 239 Patient Weight 12/30/16 23:59 Weight 136.3 kg - Labs 12/29/16 03:50 12/30/16 04:01 Diabetes panel 12/30/16 Range/Units 04:01 Sodium 144 (136-145) mEq/L Potassium 4.6 H (3.5-4.5) mEq/L Chloride 109 (98-109) mEq/L Carbon Dioxide 26 (19-29) mEq/L BUN 24 (8-26) mg/dL Creatinine 0.82 (0.72-1.25) mg/dL Glucose 238 H (70-99) mg/dL Calcium 9.0 (8.6-10.8) mg/dL Calcium panel 12/30/16 Range/Units 04:01 Calcium 9.0 (8.6-10.8) mg/dL Phosphorus 3.0 (2.3-4.7) mg/dL Pituitary panel 12/30/16 Range/Units 04:01 Sodium 144 (136-145) mEq/L Potassium 4.6 H (3.5-4.5) mEq/L Chloride 109 (98-109) mEq/L Carbon Dioxide 26 (19-29) mEq/L BUN 24 (8-26) mg/dL Creatinine 0.82 (0.72-1.25) mg/dL Glucose 238 H (70-99) mg/dL Calcium 9.0 (8.6-10.8) mg/dL Adrenal panel 12/30/16 Range/Units 04:01 Sodium 144 (136-145) mEq/L Potassium 4.6 H (3.5-4.5) mEq/L Chloride 109 (98-109) mEq/L Carbon Dioxide 26 (19-29) mEq/L BUN 24 (8-26) mg/dL Creatinine 0.82 (0.72-1.25) mg/dL Glucose 238 H (70-99) mg/dL Calcium 9.0 (8.6-10.8) mg/dL - VTE Documentation of Mechanical Device: Intermittent pneumatic compression device Consult Discharge Plan - Plan Referrals: Bryce Jones DO [Primary Care Provider] - - Attending Attestation I examined this patient and my medical decision-making was reviewed with the GOVERNMENT OPERATIONS CONSULTANT/PA/Advanced Practice Nurse/Resident Physician. I agree with the documented findings, disposition and treatment plan as described except to the extent set forth below. The patient is seen and evaluated with the resident on morning rounds. His abdomen is starting to develop a few bowel sounds. His pulmonary status is still problematic. He has some tight wheezing today. He did wear his CPAP mask last night. We will continue to await bowel function. This is expected postoperative ileus after bowel resection. Jose Antonio Jones MD FACS
[2016-12-30] MEDS ORDERED: MVI IVC SCH ×3 (14:18→17:00)
[2016-12-30] MEDS ORDERED: [UNRECOGNIZED DRUG - OTHER] IVC SCH (14:18)
[2016-12-30] MEDS ORDERED: D10% in Water 500 ML IV PRN (14:18)
[2016-12-30] MEDS ORDERED: *HR* HYDROmorphone 2 MG/ML SYRINGE IVP PRN (14:18)
[2016-12-30] MEDS ORDERED: Albuterol 2.5 MG/3 ML NEBULIZER IH PRN (14:18)
[2016-12-30] MEDS ORDERED: *HR* Dextrose 50 % in Water (Syg) 50 ML SYRINGE IVP PRN (14:18)
[2016-12-30] MEDS ORDERED: D5% in Water 1,000 ML IV PRN (14:18)
[2016-12-30] MEDS ORDERED: AMINO ACIDS 10% IVC SCH ×3 (14:18→17:00)
[2016-12-30] MEDS ORDERED: 0.9 % Sodium Chloride 1,000 ML IVC SCH (14:18)
[2016-12-30] MEDS ORDERED: Dextrose Gel 15 GM PO PRN ×2 (14:18)
[2016-12-30] MEDS ORDERED: CLINIMIX IVC SCH (14:18)
[2016-12-30] MEDS ORDERED: Naloxone 0.4 MG/ML INJ IVP PRN (14:18)
[2016-12-30] MEDS ORDERED: CLINIMIX E IVC SCH ×2 (17:00)
[2016-12-30] MEDS ORDERED: [UNRECOGNIZED DRUG - OTHER] IVC SCH ×2 (17:00)
[2016-12-31] MEDS: methylPREDNISolone 125 MG/2 ML VIAL IVP SCH ×2 (00:31→08:52)
[2016-12-31] MEDS: *HR* Metoprolol 5 MG/5 ML VIAL IVP SCH ×4 (00:31→17:18)
[2016-12-31] MEDS: Insulin LISPRO 300 UNITS/3 ML VIAL SQ SCH ×6 (00:32→21:43)
[2016-12-31] MEDS: *HR* HYDROmorphone 2 MG/ML SYRINGE IVP PRN ×5 (02:12→21:35)
[2016-12-31] MEDS: *HR* Promethazine 25 MG/ML VIAL IVP PRN ×2 (02:17→08:54)
[2016-12-31] MEDS: Ipratropium/Albuterol Neb 3 ML IH SCH ×9 (04:15→22:48)
[2016-12-31 05:17] LABS: BUN/Creatinine Ratio 40 (6-26); Calcium 9.7 mg/dL (8.6-10.8); Carbon Dioxide 27 mEq/L (19-29); Chloride 111 mEq/L (98-109); Glucose 216 mg/dL (70-99); Osmolality,Calculated 317 (280-300); Potassium 4.6 mEq/L (3.5-4.5); Sodium 146 mEq/L (136-145); eGFR For African Americans > 60 (> 60); eGFR For Non-African Americans > 60 (> 60)
[2016-12-31 05:18] LABS: Blood Urea Nitrogen 35 mg/dL (8-26)
[2016-12-31] MEDS: *HR* Heparin 5,000 UNIT/ML VIAL SQ SCH ×3 (05:46→21:33)
[2016-12-31] MEDS: Ondansetron 4 MG/2 ML VIAL IVP PRN ×3 (06:35→21:35)
[2016-12-31 07:25] LABS: Magnesium 2.2 mg/dL (1.6-2.6); Phosphorous 3.3 mg/dL (2.3-4.7)
[2016-12-31] MEDS: Budesonide/Formoterol 160/4.5 MDI IH SCH ×2 (07:56→20:03)
[2016-12-31] MEDS ORDERED: Furosemide 40 MG/4 ML VIAL IVP ONE (08:06)
[2016-12-31 08:58] LABS: Triglycerides 422 mg/dL (< 150)
[2016-12-31] MEDS ORDERED: Pantoprazole 40 MG VIAL IVP SCH (09:00)
[2016-12-31] MEDS: Pantoprazole 40 MG VIAL IVP SCH ×2 (09:17→17:18)
--- NOTE | 2016-12-31 09:46 | Pulmonology Progress Note ---
<Barbara Moreno - Last Filed: 12/31/16 10:58> Date of Encounter: 12/31/16 Time of Encounter: 09:40 Assessment and Plan (1) COPD (chronic obstructive pulmonary disease) Current Visit: No Status: Chronic Patient has chronic COPD. He was transferred to ICU for continued intubation after surgery due to his multiple comorbidities of VANI and COPD. He was successfully extubated the day of surgery with no complications. He uses a BiPAP at home at night. Surgery is following and patient has NG tube placed. He still has a large amount of fluid removed from the NG daily. He is on Symbicort, solumedrol,and DuoNeb nebs every 3 hours. He does not appear in any respiratory distress. Pt reports that this is his normal respiratory status. Patient's lung sounds are tight bilaterally. He also has some pedal edema up to his tibias bilaterally. He diuresed well with Lasix yesterday. We will add lasix again today. He is requiring high dose pain meds. It appears as if he chronically takes pain medication at home. I have counseled him on only using the medication if necessary due to it slowing down his gut transport. He expresses understanding. Pt is also requesting water, klonopin and reglan. He is NPO status until surgery clear him. I have discussed with him that he is now on a clonidine patch to help with the withdraw from the klonopin. Surgery is adding Reglan today and d/c phenergan. Plan: Continue to monitor patient. Pt on BiPap On Symbicort. On DuoNeb's. 2 days of prednisone. Pain medication and anti-emetics when necessary. PT/OT on board. Patient to bedside chair as tolerated Lasix 40 mg today. Recieved 20 mg yesterday with increased urine out put noted. Increasing insulin to medium dose for protocol. Likely hyperglycemic due to steroid use. We will allow patient to be on and off BiPAP throughout the day. NPO status until cleared by surgery Discharge from ICU to floor today Qualifiers: COPD type: unspecified COPD Qualified Code(s): J44.9 - Chronic obstructive pulmonary disease, unspecified (2) Small bowel obstruction Current Visit: No Status: Acute Postop day 6 for lysis of adhesions by Dr. Jones. Bowel sounds have returned. Pt has had 2 BM. Patient having significant output from his NG it is to wall suction. Trial of NG to gravity today. Plan: Under care of Dr. Jones. (3) Obstructive sleep apnea Current Visit: No Status: Chronic We will continue to monitor. Plan: BiPAP intermittently today. (4) DVT prophylaxis Current Visit: Yes Status: Acute Patient being moved to chair during day. Plan Heparin Pt up at bedside PT/ OT on board Encourage movement. Subjective Principal diagnosis: Acute respiratory failure Interval history: Patient status post lysis of adhesions for small bowel obstruction. Under the care of Dr. Jones. Patient brought to ICU after surgery for extubation. Patient has a large body habitus and chronic COPD. He does use BiPAP at home. He currently has an NG tube in which complicates BiPAP usage while here. Pt is up in a chair at beside and does not appear in any distress. He is alert and oriented. He is denying any pain at this time. Patient's bowel sounds present in the lower quadrants. Patient's lung sounds are tight. He is getting scheduled duo nebs every 3 hours. We will continue to use BiPAP intermittently today as Pt is comfortable with this, and uses it at home. We will also add Lasix due to patient's new pedal edema and mildly wet lung sounds. His blood pressure is more controlled with the increased Toprol dose and clonidine patch. He takes Klonopin scheduled at home. There may have been a withdrawal component to his hypertension initially. Pt up in chair at bedside. He is in no distress. He did have 2 bowel movements yesterday and is requesting water. Awaiting surgery to remove NPO status until he is permitted for this. He is provided with moist sponges to wet his mouth. Objective PUL Vital signs: Last Vital Signs Temp 97.4 F L 12/31/16 08:24 Pulse 78 12/31/16 03:00 Resp 16 12/31/16 08:00 BP 141/81 12/31/16 03:00 Pulse Ox 93 L 12/31/16 08:00 General appearance: no acute distress Eyes: nonicteric ENT: oropharynx moist Neck: supple Effort: normal Cardiovascular: regular rate and rhythm Gastrointestinal: normoactive bowel sounds, soft, non-tender, other (Well healing midline surgical site, nonerythematous) Integumentary: normal Extremities: no cyanosis, edema (pitting from pedal to tibias bilaterally) Musculoskeletal: no deformities Gait: normal gait, normal posture normal mental status, non-focal exam mood appropriate, affect normal Results - Laboratory Findings CBC and BMP: 12/29/16 03:50 12/31/16 04:32 ABG ABG pH 7.37 pH Units (7.32-7.45) 12/30/16 04:27 ABG pCO2 54 mmHg (35-45) H 12/30/16 04:27 ABG pO2 100 mmHg (85-104) 12/30/16 04:27 ABG O2 Saturation 98 % (95-98) 12/30/16 04:27 PT/INR, D-dimer PT 12.6 Seconds (9.4-12.1) H 12/25/16 03:00 Abnormal lab findings: Abnormal lab results RBC 3.56 M/mcL (4.19-5.50) L 12/29/16 03:50 Hgb 9.7 g/dL (12.9-16.9) L 12/29/16 03:50 Hct 32.8 % (37.5-50.1) L 12/29/16 03:50 MCH 27.2 pg (28.0-33.3) L 12/29/16 03:50 MCHC 29.6 g/dL (31.6-35.5) L 12/29/16 03:50 RDW 17.6 % (11.5-14.5) H 12/29/16 03:50 MPV 9.2 fL (9.4-12.4) L 12/29/16 03:50 Band Neutrophils % 16.0 % (0-4) H 12/27/16 03:41 Metamyelocytes % 2.0 % (0) H 12/27/16 03:41 Nucleated RBCs/100 WBC 0.5 /100 WBC (0) H 12/29/16 03:50 PT 12.6 Seconds (9.4-12.1) H 12/25/16 03:00 ABG pCO2 54 mmHg (35-45) H 12/30/16 04:27 ABG HCO3 31.2 mEQ/L (21-27) H 12/30/16 04:27 ABG Total CO2 32.9 mEq/L (20-26) H 12/30/16 04:27 ABG Base Excess 5.0 mEq/L (-2.0 to 3.0) H 12/30/16 04:27 Sodium 146 mEq/L (136-145) H 12/31/16 04:32 Potassium 4.6 mEq/L (3.5-4.5) H 12/31/16 04:32 Chloride 111 mEq/L (98-109) H 12/31/16 04:32 BUN 35 mg/dL (8-26) H D 12/31/16 04:32 BUN/Creatinine Ratio 40 (6-26) H 12/31/16 04:32 Glucose 216 mg/dL (70-99) H 12/31/16 04:32 POC Glucose 128 (58-89) H 12/31/16 07:55 Calculated Osmolality 317 (280-300) H 12/31/16 04:32 Albumin 3.3 g/dL (3.5-5.0) L 12/21/16 00:59 Albumin/Globulin Ratio 1.0 (1.1-2.2) L 12/21/16 00:59 Prealbumin 11.0 mg/dL (18.0-45.0) L 12/29/16 03:50 Triglycerides 422 mg/dL (< 150) H 12/31/16 04:32 Ur Specific [place] > 1.030 (1.010-1.025) H 12/21/16 03:40 Urine Blood Trace (Negative) H 12/21/16 03:40 Urine Microscopic RBC 5-15 per hpf (0-3) H 12/21/16 03:40 Ur Squamous Epith Cells Many per lpf (None-Few) H 12/21/16 03:40 Stool Occult Blood Positive (Negative) A 12/21/16 00:46 - Clinical Findings Intake & Output: Intake & Output 12/30/16 12/31/16 12/31/16 23:59 07:59 15:59 Intake Total 1000 / 1000 0 / 0 Output Total 750 / 750 900 / 900 575 / 575 Balance 250 / 250 -900 / -900 -575 / -575 - VTE Documentation of Mechanical Device: Intermittent pneumatic compression device Consult Discharge Plan - Plan Referrals: Bryce Jones DO [Primary Care Provider] - <Morelia Pierson - Last Filed: 12/31/16 16:44> Objective PUL Vital signs: Last Vital Signs Temp 97.3 F L 12/31/16 16:00 Pulse 106 12/31/16 16:00 Resp 20 12/31/16 16:00 BP 154/84 12/31/16 16:00 Pulse Ox 93 L 12/31/16 16:00 Results - Laboratory Findings CBC and BMP: 12/29/16 03:50 12/31/16 04:32 ABG ABG pH 7.37 pH Units (7.32-7.45) 12/30/16 04:27 ABG pCO2 54 mmHg (35-45) H 12/30/16 04:27 ABG pO2 100 mmHg (85-104) 12/30/16 04:27 ABG O2 Saturation 98 % (95-98) 12/30/16 04:27 PT/INR, D-dimer PT 12.6 Seconds (9.4-12.1) H 12/25/16 03:00 Abnormal lab findings: Abnormal lab results RBC 3.56 M/mcL (4.19-5.50) L 12/29/16 03:50 Hgb 9.7 g/dL (12.9-16.9) L 12/29/16 03:50 Hct 32.8 % (37.5-50.1) L 12/29/16 03:50 MCH 27.2 pg (28.0-33.3) L 12/29/16 03:50 MCHC 29.6 g/dL (31.6-35.5) L 12/29/16 03:50 RDW 17.6 % (11.5-14.5) H 12/29/16 03:50 MPV 9.2 fL (9.4-12.4) L 12/29/16 03:50 Band Neutrophils % 16.0 % (0-4) H 12/27/16 03:41 Metamyelocytes % 2.0 % (0) H 12/27/16 03:41 Nucleated RBCs/100 WBC 0.5 /100 WBC (0) H 12/29/16 03:50 PT 12.6 Seconds (9.4-12.1) H 12/25/16 03:00 ABG pCO2 54 mmHg (35-45) H 12/30/16 04:27 ABG HCO3 31.2 mEQ/L (21-27) H 12/30/16 04:27 ABG Total CO2 32.9 mEq/L (20-26) H 12/30/16 04:27 ABG Base Excess 5.0 mEq/L (-2.0 to 3.0) H 12/30/16 04:27 Sodium 146 mEq/L (136-145) H 12/31/16 04:32 Potassium 4.6 mEq/L (3.5-4.5) H 12/31/16 04:32 Chloride 111 mEq/L (98-109) H 12/31/16 04:32 BUN 35 mg/dL (8-26) H D 12/31/16 04:32 BUN/Creatinine Ratio 40 (6-26) H 12/31/16 04:32 Glucose 216 mg/dL (70-99) H 12/31/16 04:32 POC Glucose 166 (58-89) H 12/31/16 15:23 Calculated Osmolality 317 (280-300) H 12/31/16 04:32 Albumin 3.3 g/dL (3.5-5.0) L 12/21/16 00:59 Albumin/Globulin Ratio 1.0 (1.1-2.2) L 12/21/16 00:59 Prealbumin 11.0 mg/dL (18.0-45.0) L 12/29/16 03:50 Triglycerides 422 mg/dL (< 150) H 12/31/16 04:32 Ur Specific [place] > 1.030 (1.010-1.025) H 12/21/16 03:40 Urine Blood Trace (Negative) H 12/21/16 03:40 Urine Microscopic RBC 5-15 per hpf (0-3) H 12/21/16 03:40 Ur Squamous Epith Cells Many per lpf (None-Few) H 12/21/16 03:40 Stool Occult Blood Positive (Negative) A 12/21/16 00:46 - Clinical Findings Intake & Output: Intake & Output 12/31/16 12/31/16 12/31/16 07:59 15:59 23:59 Intake Total 0 / 0 Output Total 900 / 900 3140 / 3140 Balance -900 / -900 -3140 / -3140 - Attending Attestation I examined this patient and my medical decision-making was reviewed with the PLUMBER'S HELPER/PA/Advanced Practice Nurse/Resident Physician. I agree with the documented findings, disposition and treatment plan as described except to the extent set forth below. Patient seen and examined. Labs, radiology, chart personally reviewed. Agree with resident's history and physical, assessment, plan with following comments: MERCHANDISE DISPLAYER: Patient follows commands, Pulmonary: Acceptable oxygenation and ventilation. Overall patient symptoms under control and to use BiPAP when necessary and continue bronchodilators. Patient can be transferred to [facility]. Cardiovascular: stable GI: Nutrition per dietary and GI prophylaxis per routine. Surgery follow-up, patient continued to have high gastric output through his NG tube and that is being managed by surgery team Heme: DVT prophylaxis per routine Renal; urine out put and renal funtion reviewed Endorcine: blood glucose is monitored Lines: all lines checked and no evidence of infections Skin: skin care to prevent pressure ulcers per nursing routine care
--- NOTE | 2016-12-31 09:53 | General Surgery Progress Note ---
Date of Encounter: 12/31/16 Time of Encounter: 09:49 - Assessment and Plan (1) Partial small bowel obstruction Current Visit: Yes Status: Acute POD#6 #1 lysis of adhesions for 90 minutes #2 small bowel resection Pt. in ICU for initial post-op period d/t extensive comorbidities Having expected small bowel post-op ileus Plan to have pt. transferred out of ICU when pulmonology feels it is appropriate NG-tube: pt. having hypoactive bowel sounds. Continues to have moderate output in NG tube, 850cc in last 24 hours. There is risk for aspiration d/t large amounts of NG output. Must proceed cautiously with NG removal as pt. has underlying poor lung function. Will follow NG output today and if it is minimal, will consider removing NG tube. TPN- managed by director for [employer] NPO, pain control, incentive spirometry, up to chair, antiemetics, IVF NS, GI prophylaxis w/protonix, DVT prophylaxis with subq heparin 12/31/16: Will d/c phenergan and start Reglan for 6 doses to try to stimulate the bowel. Can restart phenergan once Reglan is d/c. Pt with hypoactive bowel sounds, small watery stool output, no flatus, continued significant NG output. Trial NG to gravity again today. (2) COPD (chronic obstructive pulmonary disease) Current Visit: No Status: Chronic Management per primary team Qualifiers: COPD type: unspecified COPD Qualified Code(s): J44.9 - Chronic obstructive pulmonary disease, unspecified (3) GERD (gastroesophageal reflux disease) Current Visit: No Status: Chronic PPI daily Qualifiers: Esophagitis presence: esophagitis presence not specified Qualified Code(s) : K21.9 - Gastro-esophageal reflux disease without esophagitis (4) HTN (hypertension) Current Visit: No Status: Chronic Hydralazine IV and metoprolol IV PRN Management per primary service Qualifiers: Hypertension type: essential hypertension Qualified Code(s): I10 - Essential (primary) hypertension (5) Morbid obesity with BMI of 40.0-44.9, adult Current Visit: No Status: Chronic (6) DVT prophylaxis Current Visit: Yes Status: Acute Continue heparin 5,000 units SQ every 8 hours Subjective Patient reports: still having pain, no flatus, bowel movement, diarrhea Narrative: Pt seen and examined. Still in ICU. He is up in the chair this am. He has had a few liquid stools but is not passing gas. He states he feels better still extremely bloated. Still having large amounts of NG drainage. Objective Vital Signs - Last 8 Hours Temp Pulse Resp BP Pulse Ox 12/31/16 08:24 97.4 F L 12/31/16 08:00 16 93 L 12/31/16 06:32 17 93 L 12/31/16 05:08 97.0 F L 12/31/16 04:15 16 97 12/31/16 03:00 78 141/81 12/31/16 02:00 77 142/79 Intake and Output 12/30/16 12/31/16 12/31/16 23:59 07:59 15:59 Intake Total 1000 / 1000 0 / 0 Output Total 750 / 750 900 / 900 575 / 575 Balance 250 / 250 -900 / -900 -575 / -575 Intake: IV Fluids 1000 / 1000 0.9 % Sodium Chloride 1, 1000 / 1000 000 ML @ 50 mls/hr IVC . [facility] Rx#:[id number] Oral 0 / 0 Output: Catheter 600 / 600 450 / 450 175 / 175 Gastric Drainage 150 / 150 450 / 450 400 / 400 Other: Stool Size Small Stool Consistency soft Stool Color Brown # Bowel Movement Diapers 1 Blood Glucose* 156 199 124 - General physical appearance well developed, well nourished, no distress - Eyes PERRL - Neck Neck exam: trachea midline - Respiratory wheezing: bilateral - Cardiovascular Cardiovascular exam: Present: RRR - Abdomen Abdomen: Present: bowel sounds present (hypoactive), soft, tender (expected post -op incisional tenderness) - Incision Incision: Present: clean and dry, intact - Neurologic CN 2-12 grossly intact - Psychiatric oriented to time, oriented to person, oriented to place - Labs 12/29/16 03:50 12/31/16 04:32 Diabetes panel 12/31/16 Range/Units 04:32 Sodium 146 H (136-145) mEq/L Potassium 4.6 H (3.5-4.5) mEq/L Chloride 111 H (98-109) mEq/L Carbon Dioxide 27 (19-29) mEq/L BUN 35 H D (8-26) mg/dL Creatinine 0.87 (0.72-1.25) mg/dL Glucose 216 H (70-99) mg/dL Calcium 9.7 (8.6-10.8) mg/dL Triglycerides 422 H (< 150) mg/dL Calcium panel 12/31/16 Range/Units 04:32 Calcium 9.7 (8.6-10.8) mg/dL Phosphorus 3.3 (2.3-4.7) mg/dL Pituitary panel 12/31/16 Range/Units 04:32 Sodium 146 H (136-145) mEq/L Potassium 4.6 H (3.5-4.5) mEq/L Chloride 111 H (98-109) mEq/L Carbon Dioxide 27 (19-29) mEq/L BUN 35 H D (8-26) mg/dL Creatinine 0.87 (0.72-1.25) mg/dL Glucose 216 H (70-99) mg/dL Calcium 9.7 (8.6-10.8) mg/dL Adrenal panel 12/31/16 Range/Units 04:32 Sodium 146 H (136-145) mEq/L Potassium 4.6 H (3.5-4.5) mEq/L Chloride 111 H (98-109) mEq/L Carbon Dioxide 27 (19-29) mEq/L BUN 35 H D (8-26) mg/dL Creatinine 0.87 (0.72-1.25) mg/dL Glucose 216 H (70-99) mg/dL Calcium 9.7 (8.6-10.8) mg/dL - VTE Documentation of Mechanical Device: Intermittent pneumatic compression device Consult Discharge Plan - Plan Referrals: Bryce Jones DO [Primary Care Provider] - - Attending Attestation I examined this patient and my medical decision-making was reviewed with the PRINCIPAL CLERK TYPIST/PA/Advanced Practice Nurse/Resident Physician. I agree with the documented findings, disposition and treatment plan as described except to the extent set forth below. The patient was seen and evaluated. The patient's care is discussed with the resident. I agree that the nasogastric tube should stay in today because of aspiration risk. We will continue to follow the patient along closely and remove the nasogastric tube when available. Jose Antonio Jones MD FACS
[2016-12-31] MEDS: Metoclopramide 10 MG/2 ML VIAL IVP SCH ×2 (11:16→17:18)
[2016-12-31] MEDS ORDERED: MVI IVC SCH (17:00)
[2016-12-31] MEDS ORDERED: [UNRECOGNIZED DRUG - OTHER] IVC SCH (17:00)
[2016-12-31] MEDS ORDERED: AMINO ACIDS 10% IVC SCH (17:00)
[2016-12-31] MEDS ORDERED: CLINIMIX E IVC SCH (17:00)
[2016-12-31] MEDS: Chloraseptic Spray 177 ML BOTTLE MM PRN (17:29)
[2017-01-01] MEDS: Insulin LISPRO 300 UNITS/3 ML VIAL SQ SCH ×6 (00:22→20:30)
[2017-01-01] MEDS: Metoclopramide 10 MG/2 ML VIAL IVP SCH ×4 (00:24→17:35)
[2017-01-01] MEDS: *HR* Metoprolol 5 MG/5 ML VIAL IVP SCH ×5 (00:24→23:56)
[2017-01-01] MEDS: Ipratropium/Albuterol Neb 3 ML IH SCH ×8 (01:43→23:06)
[2017-01-01] MEDS: Ondansetron 4 MG/2 ML VIAL IVP PRN ×3 (03:00→17:22)
[2017-01-01] MEDS: *HR* HYDROmorphone 2 MG/ML SYRINGE IVP PRN ×6 (03:00→21:03)
[2017-01-01 06:15] LABS: Basophils # 0.1 K/mcL (0.0-0.2); Basophils % 0.8 %; Eosinophils % 0.1 %; Hematocrit 37.3 % (37.5-50.1); Immature Granulocytes % 6.7 % (0-4); Lymphocytes # 1.3 K/mcL (0.6-4.6); Lymphocytes % 11.6 %; Mean Corpuscular HGB Conc 29.5 g/dL (31.6-35.5); Mean Corpuscular Hemoglobin 26.6 pg (28.0-33.3); Mean Corpuscular Volume 90.3 fL (83.0-100.0); Mean Platelet Volume 9.8 fL (9.4-12.4); Monocytes # 0.9 K/mcL (0.0-1.3); Monocytes % 8.3 %; Nucleated Red Blood Cells 0.7 /100 WBC (0); Platelet Count 344 K/mcL (140-400); Red Blood Count 4.13 M/mcL (4.19-5.50); Red Cell Distribution Width 18.3 % (11.5-14.5); Segmented Neutrophils % 72.5 %
[2017-01-01 06:20] LABS: Neutrophils # 8.1 K/mcL (1.6-8.9)
[2017-01-01] MEDS: Pantoprazole 40 MG VIAL IVP SCH ×2 (06:26→17:21)
[2017-01-01] MEDS: Chloraseptic Spray 177 ML BOTTLE MM PRN (06:27)
[2017-01-01] MEDS: *HR* Heparin 5,000 UNIT/ML VIAL SQ SCH ×3 (06:28→21:03)
[2017-01-01 06:33] LABS: BUN/Creatinine Ratio 44 (6-26); Blood Urea Nitrogen 42 mg/dL (8-26); Carbon Dioxide 21 mEq/L (19-29); Chloride 112 mEq/L (98-109); Glucose 126 mg/dL (70-99); Osmolality,Calculated 312 (280-300); Potassium 4.6 mEq/L (3.5-4.5); Sodium 145 mEq/L (136-145); eGFR For African Americans > 60 (> 60); eGFR For Non-African Americans > 60 (> 60)
[2017-01-01 07:18] LABS: Platelet Estimate Normal (Normal); Toxic Granulation Present (Not Present)
[2017-01-01] MEDS: Budesonide/Formoterol 160/4.5 MDI IH SCH ×2 (08:40→19:30)
--- NOTE | 2017-01-01 14:28 | General Surgery Progress Note ---
Date of Encounter: 01/01/17 Time of Encounter: 14:27 - Assessment and Plan (1) Partial small bowel obstruction Current Visit: Yes Status: Acute POD#7 #1 lysis of adhesions for 90 minutes #2 small bowel resection Transferred out of ICU yesterday. NG was removed yesterday. Pt. has return of bowel function with +bowel sounds, +flatus, and +bm There is some erythema around the incision site. Will monitor for increasing size/tenderness/drainage. Trend WBC. Currently 11.1 Will advance feeds to clear liquids TPN- managed by music adapter. If he tolerates clear liquid diet with begin to decrease TPN tomorrow. clear liquid diet, pain control, incentive spirometry, up to chair, antiemetics , GI prophylaxis w/protonix, DVT prophylaxis with subq heparin (2) COPD (chronic obstructive pulmonary disease) Current Visit: No Status: Chronic Management per primary team Qualifiers: COPD type: unspecified COPD Qualified Code(s): J44.9 - Chronic obstructive pulmonary disease, unspecified (3) GERD (gastroesophageal reflux disease) Current Visit: No Status: Chronic PPI daily Qualifiers: Esophagitis presence: esophagitis presence not specified Qualified Code(s) : K21.9 - Gastro-esophageal reflux disease without esophagitis (4) HTN (hypertension) Current Visit: No Status: Chronic Hydralazine IV and metoprolol IV PRN Management per primary service Qualifiers: Hypertension type: essential hypertension Qualified Code(s): I10 - Essential (primary) hypertension (5) Morbid obesity with BMI of 40.0-44.9, adult Current Visit: No Status: Chronic (6) DVT prophylaxis Current Visit: Yes Status: Acute Continue heparin 5,000 units SQ every 8 hours Subjective Patient reports: feels better, still having pain, flatus, bowel movement Narrative: Patient seen and examined. States he feels much better than a few days ago. Has tolerated NG removal. Will advance to clear liquid diet. Having bowel sounds, +flatus, +bm. AFebrile. WBC 11 Objective Vital Signs - Last 8 Hours Temp Pulse Resp BP Pulse Ox 01/01/17 11:26 18 151/85 95 01/01/17 08:37 18 151/85 94 L 01/01/17 08:30 89 01/01/17 07:31 97.8 F 89 16 151/85 94 L Intake and Output 12/31/16 01/01/17 01/01/17 23:59 07:59 15:59 Intake Total 1444 / 1444 0 / 0 Output Total 450 / 450 600 / 600 350 / 350 Balance -450 / -450 844 / 844 -350 / -350 Intake: IV Fluids 1444 / 1444 Clinimix E 5%-15% 1444 / 1444 SOLUTION 2,000 ML Trophamine 400 ML @ 100 mls/hr IVC .Q24H ANA with M.v.i. Adult 10 ml Rx#: [id number] Oral 0 / 0 Output: Urine 0 / 0 Catheter 450 / 450 600 / 600 350 / 350 Other: Stool Size Small Small Smear Stool Consistency soft loose soft Stool Characteristics Pasty Stool Color Brown Brown Brown # Bowel Movements 1 1 Weight 136.3 kg Blood Glucose* 147 120 Patient Weight 01/01/17 23:59 Weight 136.3 kg - General physical appearance well developed, well nourished - Eyes normal ocular movement - Neck Neck exam: trachea midline - Respiratory wheezing: bilateral - Cardiovascular Cardiovascular exam: Present: RRR - Abdomen Abdomen: Present: bowel sounds present, soft, tender (expected post-op incisional tendereness) - Incision Incision: Present: intact, erythema - Neurologic CN 2-12 grossly intact - Psychiatric oriented to time, oriented to person, oriented to place - Labs 01/01/17 05:50 01/01/17 05:50 Diabetes panel 01/01/17 Range/Units 05:50 Sodium 145 (136-145) mEq/L Potassium 4.6 H (3.5-4.5) mEq/L Chloride 112 H (98-109) mEq/L Carbon Dioxide 21 (19-29) mEq/L BUN 42 H (8-26) mg/dL Creatinine 0.95 (0.72-1.25) mg/dL Glucose 126 H (70-99) mg/dL Calcium 10.0 (8.6-10.8) mg/dL Calcium panel 01/01/17 Range/Units 05:50 Calcium 10.0 (8.6-10.8) mg/dL Phosphorus 3.0 (2.3-4.7) mg/dL Pituitary panel 01/01/17 Range/Units 05:50 Sodium 145 (136-145) mEq/L Potassium 4.6 H (3.5-4.5) mEq/L Chloride 112 H (98-109) mEq/L Carbon Dioxide 21 (19-29) mEq/L BUN 42 H (8-26) mg/dL Creatinine 0.95 (0.72-1.25) mg/dL Glucose 126 H (70-99) mg/dL Calcium 10.0 (8.6-10.8) mg/dL Adrenal panel 01/01/17 Range/Units 05:50 Sodium 145 (136-145) mEq/L Potassium 4.6 H (3.5-4.5) mEq/L Chloride 112 H (98-109) mEq/L Carbon Dioxide 21 (19-29) mEq/L BUN 42 H (8-26) mg/dL Creatinine 0.95 (0.72-1.25) mg/dL Glucose 126 H (70-99) mg/dL Calcium 10.0 (8.6-10.8) mg/dL - VTE Documentation of Mechanical Device: Intermittent pneumatic compression device Consult Discharge Plan - Plan Referrals: Bryce Jones DO [Primary Care Provider] - - Attending Attestation I examined this patient and my medical decision-making was reviewed with the CLINICAL TRIAL MANAGER/PA/Advanced Practice Nurse/Resident Physician. I agree with the documented findings, disposition and treatment plan as described except to the extent set forth below. I reviewed the physical examination assessment with the internet media planner. Patient's incision has some mild erythema minimal blanching noted. No true drainage is noted. Incisional pain is noted but positive bowel sounds are appreciated. We will continue with serial abdominal examination. On clear liquid diet. If he tolerates we will advance to full liquid diet and consider decreasing TPN. Dressing change to be performed daily.
--- NOTE | 2017-01-01 16:24 | Internal Med Progress Note ---
Date of Encounter: 01/01/17 Time of Encounter: 16:23 - Assessment and plan (1) HTN (hypertension) Current Visit: No Status: Chronic Qualifiers: Hypertension type: essential hypertension Qualified Code(s): I10 - Essential (primary) hypertension (2) DVT prophylaxis Current Visit: Yes Status: Acute (3) COPD (chronic obstructive pulmonary disease) Current Visit: Yes Status: Chronic Qualifiers: COPD type: unspecified COPD Qualified Code(s): J44.9 - Chronic obstructive pulmonary disease, unspecified (4) Morbid obesity Current Visit: Yes Status: Chronic Qualifiers: Obesity type: unspecified obesity type Qualified Code(s): E66.01 - Morbid ( severe) obesity due to excess calories (5) Partial small bowel obstruction Current Visit: Yes Status: Acute (6) Obesity (BMI 35.0-39.9 without comorbidity) Current Visit: Yes Status: Acute Assessment and plan: Mr. Herring is a 61 year old male with past medical history significant for ventral hernia repair, prior history of bowel obstruction, hypertension, diabetes, COPD, Chronic respiratory failure on 3 L home oxygenation - resents the ER with abdominal pain. Patient was diagnosed to have small bowel obstruction underwent surgery for the same on 12/27/2016. SBO s/p small bowel resection: Pt doign well post-op. Bowel sounds minimal. On TPN. Started on clear liquid diet. Sugery following. Essential HTN: On IV meds, metoprolol and hydralazine pRN. Home meds on hold as she was NPO. Will switch to PO meds as tolerated. COPD: Not in exacerbation, continue home meds Volume overload: Received lasix in ICU. Monitor for now. Redose lasix as needed. Echo shows preserved EF. diastolic dysfunction. GERD: continue PPI. No acute issues DVT Prophylaxis: Sub Q heparin - Time Spent With Patient 25 - 35 minutes - Subjective Interval history: seen and examined at bedside. Sitting up in a chair this morning.Denies any nausea, vomiting. - Constitutional Vitals: Temp Pulse Resp BP Pulse Ox 97.8 F 105 18 151/85 95 01/01/17 07:31 01/01/17 15:00 01/01/17 15:59 01/01/17 11:26 01/01/17 15:59 General appearance: Present: cooperative, A&O X 3, pleasant, no acute distress, answers questions appropriately - Head Head exam: Present: atraumatic, normocephalic - Eye Eye exam: Present: PERRL, conjuntiva pink, sclera anicteric Pupils: Present: PERRL - Neck Neck exam general surgery: Present: supple, trachea midline. Absent: lymphadenopathy - Respiratory Respiratory exam: Present: CTAB. Absent: accessory muscle use, rales, rhonchi, wheezes - Cardiovascular Cardiovascular exam: Present: RRR, +S1, +S2. Absent: diastolic murmur, gallop, rubs, systolic murmur - GI/Abdominal GI/Abdominal exam: Present: normal bowel sounds, soft, no peritoneal signs ( surgical site clean). Absent: distended, tenderness - Extremities Exam Extremities exam: Present: warm, radial pulses palpable and symetrical. Absent : calf tenderness, cyanotic, pedal edema - Neurological Exam Neurological exam: Present: CN II-XII intact, oriented X3, no focal deficits. Absent: pronater drift, facial droop, speech deficit - Skin Skin exam: Present: dry, intact Internal Medicine: Result - Labs CBC & Chem 7: 01/01/17 05:50 01/01/17 05:50 Labs: Short CBC 01/01/17 Range/Units 05:50 WBC 11.1 (4.3-11.1) K/mcL Hgb 11.0 L (12.9-16.9) g/dL Hct 37.3 L (37.5-50.1) % Plt Count 344 D (140-400) K/mcL Neutrophils # 8.1 (1.6-8.9) K/mcL BMP 01/01/17 05:50 Sodium 145 Potassium 4.6 H Chloride 112 H Carbon Dioxide 21 BUN 42 H Creatinine 0.95 Glucose 126 H Calcium 10.0 - ABG Interpretation ABG results: ABG ABG pH 7.37 pH Units (7.32-7.45) 12/30/16 04:27 ABG pCO2 54 mmHg (35-45) H 12/30/16 04:27 ABG pO2 100 mmHg (85-104) 12/30/16 04:27 ABG O2 Saturation 98 % (95-98) 12/30/16 04:27 PT/INR, D-dimer PT 12.6 Seconds (9.4-12.1) H 12/25/16 03:00 - VTE Documentation of Mechanical Device: Intermittent pneumatic compression device Consult Discharge Plan - Plan Referrals: Bryce Jones DO [Primary Care Provider] -
[2017-01-01] MEDS: CLINIMIX E IVC SCH (17:20)
[2017-01-01] MEDS: AMINO ACIDS 10% IVC SCH (17:20)
[2017-01-01] MEDS: MVI IVC SCH (17:20)
[2017-01-01] MEDS: [UNRECOGNIZED DRUG - OTHER] IVC SCH (17:20)
[2017-01-02] MEDS: Insulin LISPRO 300 UNITS/3 ML VIAL SQ SCH ×6 (00:01→21:20)
[2017-01-02] MEDS: *HR* HYDROmorphone 2 MG/ML SYRINGE IVP PRN ×5 (01:10→20:10)
[2017-01-02] MEDS: Ipratropium/Albuterol Neb 3 ML IH SCH ×6 (03:41→23:14)
[2017-01-02] MEDS: *HR* Heparin 5,000 UNIT/ML VIAL SQ SCH ×3 (06:17→22:55)
[2017-01-02] MEDS: *HR* Metoprolol 5 MG/5 ML VIAL IVP SCH ×3 (06:17→17:19)
[2017-01-02] MEDS: Pantoprazole 40 MG VIAL IVP SCH ×2 (06:17→17:19)
[2017-01-02] MEDS: Ondansetron 4 MG/2 ML VIAL IVP PRN ×2 (07:09→17:19)
[2017-01-02] MEDS: Budesonide/Formoterol 160/4.5 MDI IH SCH ×2 (07:56→20:17)
--- NOTE | 2017-01-02 13:52 | Internal Med Progress Note ---
Date of Encounter: 01/02/17 Time of Encounter: 13:49 - Assessment and plan (1) HTN (hypertension) Current Visit: No Status: Chronic Qualifiers: Hypertension type: essential hypertension Qualified Code(s): I10 - Essential (primary) hypertension (2) DVT prophylaxis Current Visit: Yes Status: Acute (3) COPD (chronic obstructive pulmonary disease) Current Visit: Yes Status: Chronic Qualifiers: COPD type: unspecified COPD Qualified Code(s): J44.9 - Chronic obstructive pulmonary disease, unspecified (4) Morbid obesity Current Visit: Yes Status: Chronic Qualifiers: Obesity type: unspecified obesity type Qualified Code(s): E66.01 - Morbid ( severe) obesity due to excess calories (5) Partial small bowel obstruction Current Visit: Yes Status: Acute (6) Obesity (BMI 35.0-39.9 without comorbidity) Current Visit: Yes Status: Acute Assessment and plan: Mr. Herring is a 61 year old male with past medical history significant for ventral hernia repair, prior history of bowel obstruction, hypertension, diabetes, COPD, Chronic respiratory failure on 3 L home oxygenation - resents the ER with abdominal pain. Patient was diagnosed to have small bowel obstruction underwent surgery for the same on 12/27/2016. SBO s/p small bowel resection: Pt doing well post-op. Bowel sounds minimal. On TPN. Started on clear liquid diet. Surgery following. Essential HTN: On IV meds, metoprolol and hydralazine pRN. Will switch to PO meds as tolerated. COPD: Not in exacerbation, continue home meds Diastolic dysfunction: Restarted on lasix as b/l LE edema noted. Echo shows preserved EF. diastolic dysfunction. GERD: continue PPI. No acute issues DVT Prophylaxis: Sub Q heparin - Time Spent With Patient 25 - 35 minutes - Subjective Interval history: seen and examined at bedside. Sitting up in a chair this morning. Denies any nausea, vomiting. LE swelling has worsened. - Constitutional Vitals: Temp Pulse Resp BP Pulse Ox 97.9 F 99 16 151/83 98 01/02/17 11:06 01/02/17 12:46 01/02/17 11:23 01/02/17 11:06 01/02/17 11:23 General appearance: Present: cooperative, A&O X 3, pleasant, no acute distress, answers questions appropriately - Head Head exam: Present: atraumatic, normocephalic - Eye Eye exam: Present: PERRL, conjuntiva pink, sclera anicteric Pupils: Present: PERRL - Neck Neck exam general surgery: Present: supple, trachea midline. Absent: lymphadenopathy - Respiratory Respiratory exam: Present: CTAB. Absent: accessory muscle use, rales, rhonchi, wheezes - Cardiovascular Cardiovascular exam: Present: RRR, +S1, +S2. Absent: diastolic murmur, gallop, rubs, systolic murmur - GI/Abdominal GI/Abdominal exam: Present: normal bowel sounds, soft, no peritoneal signs. Absent: distended, tenderness - Extremities Exam Extremities exam: Present: pedal edema, warm, radial pulses palpable and symetrical. Absent: calf tenderness, cyanotic - Neurological Exam Neurological exam: Present: CN II-XII intact, oriented X3, no focal deficits. Absent: pronater drift, facial droop, speech deficit - Skin Skin exam: Present: dry, intact Internal Medicine: Result - Labs CBC & Chem 7: 01/01/17 05:50 01/01/17 05:50 - ABG Interpretation ABG results: ABG ABG pH 7.37 pH Units (7.32-7.45) 12/30/16 04:27 ABG pCO2 54 mmHg (35-45) H 12/30/16 04:27 ABG pO2 100 mmHg (85-104) 12/30/16 04:27 ABG O2 Saturation 98 % (95-98) 12/30/16 04:27 PT/INR, D-dimer PT 12.6 Seconds (9.4-12.1) H 12/25/16 03:00 - VTE Documentation of Mechanical Device: Intermittent pneumatic compression device Consult Discharge Plan - Plan Referrals: Bryce Jones DO [Primary Care Provider] -
[2017-01-02] MEDS: Furosemide 40 MG/4 ML VIAL IVP SCH (15:30)
--- NOTE | 2017-01-02 16:13 | General Surgery Progress Note ---
Date of Encounter: 01/02/17 Time of Encounter: 16:10 - Assessment and Plan (1) Partial small bowel obstruction Current Visit: Yes Status: Acute POD#8 #1 lysis of adhesions for 90 minutes #2 small bowel resection Pt. has return of bowel function with +bowel sounds, +flatus, and +bm There is some erythema around the incision site. Will monitor for increasing size/tenderness/drainage. Trend WBC. Currently 11.[address] scan if erythema/drainage increases around incision site. Tolerating clear liquids. Will advance feeds to full liquids TPN- managed by air brake mechanic. Plan to be decreased tomorrow. clear liquid diet, pain control, incentive spirometry, up to chair, antiemetics , GI prophylaxis w/protonix, DVT prophylaxis with subq heparin (2) COPD (chronic obstructive pulmonary disease) Current Visit: No Status: Chronic Management per primary team Qualifiers: COPD type: unspecified COPD Qualified Code(s): J44.9 - Chronic obstructive pulmonary disease, unspecified (3) GERD (gastroesophageal reflux disease) Current Visit: No Status: Chronic PPI daily Qualifiers: Esophagitis presence: esophagitis presence not specified Qualified Code(s) : K21.9 - Gastro-esophageal reflux disease without esophagitis (4) HTN (hypertension) Current Visit: No Status: Chronic Hydralazine IV and metoprolol IV PRN Management per primary service Qualifiers: Hypertension type: essential hypertension Qualified Code(s): I10 - Essential (primary) hypertension (5) Morbid obesity with BMI of 40.0-44.9, adult Current Visit: No Status: Chronic (6) DVT prophylaxis Current Visit: Yes Status: Acute Continue heparin 5,000 units SQ every 8 hours Subjective Patient reports: feels better, still having pain, flatus, bowel movement, afebrile Objective Vital Signs - Last 8 Hours Temp Pulse Resp BP Pulse Ox 01/02/17 16:03 16 98 01/02/17 12:46 99 01/02/17 11:23 16 98 01/02/17 11:06 97.9 F 110 16 151/83 98 01/02/17 08:30 97.8 F 109 16 125/85 96 Intake and Output 01/02/17 01/02/17 01/02/17 07:59 15:59 23:59 Intake Total 400 / 400 Output Total 350 / 350 Balance 50 / 50 Intake: Oral 400 / 400 Output: Urine 100 / 100 Catheter 250 / 250 Other: Stool Size Moderate Small Stool Consistency liquid liquid Stool Color Brown Brown # Bowel Movements 1 1 Blood Glucose* 123 - General physical appearance well developed, well nourished, moderate distress - Eyes normal ocular movement - Neck Neck exam: trachea midline - Respiratory wheezing: bilateral - Cardiovascular Cardiovascular exam: Present: RRR - Abdomen Abdomen: Present: bowel sounds present, soft, distended - Incision Incision: Present: red, clean and dry, intact - Neurologic CN 2-12 grossly intact - Psychiatric oriented to time, oriented to person, oriented to place - Labs 01/03/17 04:05 01/01/17 05:50 - VTE Documentation of Mechanical Device: Intermittent pneumatic compression device Consult Discharge Plan - Plan Referrals: Bryce Jones DO [Primary Care Provider] - - Attending Attestation I examined this patient and my medical decision-making was reviewed with the DRAPERY CUTTER MACHINE/PA/Advanced Practice Nurse/Resident Physician. I agree with the documented findings, disposition and treatment plan as described except to the extent set forth below. I performed an evaluation and assessment with the internist present. Noted erythema along the course surrounding the abdominal incision. Mild tenderness to palpation but positive bowel sounds are noted. Patient has positive bowel movements and we have stopped the Reglan to see if this will help with his liquid-like stools. Continue with serial abdominal exams and follow WBC. May need to consider removing several adelfo to see if there is any drainage and or consideration for CT scan.
[2017-01-02] MEDS ORDERED: [UNRECOGNIZED DRUG - OTHER] IVC SCH (17:00)
[2017-01-02] MEDS ORDERED: AMINO ACIDS 10% IVC SCH (17:00)
[2017-01-02] MEDS ORDERED: CLINIMIX E IVC SCH (17:00)
[2017-01-02] MEDS ORDERED: MVI IVC SCH (17:00)
[2017-01-02] MEDS: MVI IVC SCH (17:21)
[2017-01-02] MEDS: AMINO ACIDS 10% IVC SCH (17:21)
[2017-01-02] MEDS: CLINIMIX E IVC SCH (17:21)
[2017-01-02] MEDS: [UNRECOGNIZED DRUG - OTHER] IVC SCH (17:21)
[2017-01-03] MEDS: *HR* HYDROmorphone 2 MG/ML SYRINGE IVP PRN ×2 (00:09→05:45)
[2017-01-03] MEDS: *HR* Metoprolol 5 MG/5 ML VIAL IVP SCH ×5 (00:10→23:18)
[2017-01-03] MEDS: Insulin LISPRO 300 UNITS/3 ML VIAL SQ SCH ×6 (02:01→21:11)
[2017-01-03] MEDS: Ipratropium/Albuterol Neb 3 ML IH SCH ×6 (03:56→23:48)
[2017-01-03] MEDS: Ondansetron 4 MG/2 ML VIAL IVP PRN ×3 (03:59→23:18)
[2017-01-03 04:16] LABS: Basophils % 0.4 %; Eosinophils # 0.3 K/mcL (0.0-0.6); Eosinophils % 3.3 %; Hematocrit 31.9 % (37.5-50.1); Hemoglobin 9.8 g/dL (12.9-16.9); Immature Granulocytes % 4.5 % (0-4); Immature Platelets 4.4 % (1.1-6.1); Lymphocytes # 0.8 K/mcL (0.6-4.6); Lymphocytes % 9.1 %; Mean Corpuscular HGB Conc 30.7 g/dL (31.6-35.5); Mean Corpuscular Hemoglobin 27.9 pg (28.0-33.3); Mean Corpuscular Volume 90.9 fL (83.0-100.0); Mean Platelet Volume 9.8 fL (9.4-12.4); Monocytes # 0.3 K/mcL (0.0-1.3); Monocytes % 3.7 %; Nucleated Red Blood Cells 0.2 /100 WBC (0); Platelet Count 310 K/mcL (140-400); Red Blood Count 3.51 M/mcL (4.19-5.50); Red Cell Distribution Width 17.4 % (11.5-14.5)
[2017-01-03 04:20] LABS: Neutrophils # 6.6 K/mcL (1.6-8.9)
[2017-01-03 04:39] LABS: Platelet Estimate Normal (Normal)
[2017-01-03] MEDS: *HR* Heparin 5,000 UNIT/ML VIAL SQ SCH ×3 (05:45→23:17)
[2017-01-03] MEDS: Pantoprazole 40 MG VIAL IVP SCH ×2 (05:45→17:53)
[2017-01-03] MEDS: Furosemide 40 MG/4 ML VIAL IVP SCH (07:45)
[2017-01-03] MEDS: Budesonide/Formoterol 160/4.5 MDI IH SCH ×2 (07:52→20:25)
--- NOTE | 2017-01-03 08:44 | General Surgery Progress Note ---
Date of Encounter: 01/03/17 Time of Encounter: 08:41 - Assessment and Plan (1) Partial small bowel obstruction Current Visit: Yes Status: Acute POD#9 #1 lysis of adhesions for 90 minutes #2 small bowel resection Pt. has return of bowel function with +bowel sounds, +flatus, and +bm There is some erythema around the incision site. Drainage appears serosanguinous. Will place some iodoform for wicking. Will consider CT scan if erythema/drainage increases around incision site. Trend WBC. 11.1>8.3 PO pain meds started, to be weaned off IV pain meds Tolerating full liquids TPN- managed by plate drying machine tender. Will begin decreasing TPN. full liquid diet, pain control, incentive spirometry, up to chair, antiemetics, GI prophylaxis w/protonix, DVT prophylaxis with subq heparin (2) COPD (chronic obstructive pulmonary disease) Current Visit: No Status: Chronic Management per primary team Qualifiers: COPD type: unspecified COPD Qualified Code(s): J44.9 - Chronic obstructive pulmonary disease, unspecified (3) GERD (gastroesophageal reflux disease) Current Visit: No Status: Chronic PPI daily Qualifiers: Esophagitis presence: esophagitis presence not specified Qualified Code(s) : K21.9 - Gastro-esophageal reflux disease without esophagitis (4) HTN (hypertension) Current Visit: No Status: Chronic Hydralazine IV and metoprolol IV PRN Management per primary service Qualifiers: Hypertension type: essential hypertension Qualified Code(s): I10 - Essential (primary) hypertension (5) Morbid obesity with BMI of 40.0-44.9, adult Current Visit: No Status: Chronic (6) DVT prophylaxis Current Visit: Yes Status: Acute Continue heparin 5,000 units SQ every 8 hours Subjective Patient reports: feels better, still having pain, tolerating liquids well, flatus, bowel movement, afebrile Narrative: Patient seen and examined. Feeling better. Having bowel sounds, bm, flatus. Chronic nausea. no vomiting. Mild erythema at incision site. Afebrile. WBC 8.3 Objective Vital Signs - Last 8 Hours Temp Pulse Resp BP Pulse Ox 01/03/17 07:55 20 98 01/03/17 07:18 97.8 F 91 18 135/97 96 01/03/17 04:12 112 01/03/17 04:09 98.2 F 112 15 131/82 97 01/03/17 03:56 22 98 Intake and Output 01/02/17 01/03/17 01/03/17 23:59 07:59 15:59 Intake Total 2990 / 2990 Output Total 2450 / 2450 400 / 400 Balance 540 / 540 -400 / -400 Intake: IV Fluids 2410 / 2410 Clinimix E 5%-15% 2410 / 2410 SOLUTION 2,000 ML Trophamine 400 ML @ 100 mls/hr IVC .Q24H ANA with M.v.i. Adult 10 ml Rx#: [id number] Oral 580 / 580 Output: Urine 250 / 250 Urethral ([place]) 250 / 250 Catheter 2200 / 2200 400 / 400 Other: # Voids 0 Blood Glucose* 157 144 - General physical appearance well developed, well nourished, no distress - Eyes normal ocular movement - Neck Neck exam: trachea midline - Respiratory wheezing: bilateral - Cardiovascular Cardiovascular exam: Present: RRR - Abdomen Abdomen: Present: bowel sounds present, soft, tender (expected post-op tenderness) - Incision Incision: Present: red, clean and dry, intact - Neurologic CN 2-12 grossly intact - Psychiatric oriented to time, oriented to person, oriented to place - Labs 01/03/17 04:05 01/03/17 10:50 - VTE Documentation of Mechanical Device: Intermittent pneumatic compression device Consult Discharge Plan - Plan Referrals: Bryce Jones DO [Primary Care Provider] - (SENT WEB REQUEST ON @ [id number]) - Attending Attestation I examined this patient and my medical decision-making was reviewed with the SOFTWARE ASSET MANAGER/PA/Advanced Practice Nurse/Resident Physician. I agree with the documented findings, disposition and treatment plan as described except to the extent set forth below. The patient is seen and evaluated on morning rounds with the resident. He appears to have a superficial wound infection after bowel obstruction. We will remove several adelfo and allow this area to heal with an iodoform wick. He has had return of bowel function and we will advance his diet as his symptoms allow. He still has terrible wheezing on physical examination in this is being treated aggressively by the hospitalist. Jose Antonio Jones MD FACS
[2017-01-03] MEDS: *HR* OxyCODONE/APAP 10/325 TABLET PO PRN ×2 (11:55→19:41)
[2017-01-03] MEDS: predniSONE 20 MG TABLET PO SCH ×2 (11:58→17:54)
[2017-01-03 12:05] LABS: BUN/Creatinine Ratio 37 (6-26); Blood Urea Nitrogen 34 mg/dL (8-26); Calcium 8.8 mg/dL (8.6-10.8); Carbon Dioxide 28 mEq/L (19-29); Chloride 101 mEq/L (98-109); Glucose 143 mg/dL (70-99); Osmolality,Calculated 300 (280-300); Potassium 3.9 mEq/L (3.5-4.5); Sodium 140 mEq/L (136-145); eGFR For African Americans > 60 (> 60); eGFR For Non-African Americans > 60 (> 60)
--- NOTE | 2017-01-03 15:22 | Internal Med Progress Note ---
Date of Encounter: 01/03/17 Time of Encounter: 15:20 - Assessment and plan (1) HTN (hypertension) Current Visit: No Status: Chronic Qualifiers: Hypertension type: essential hypertension Qualified Code(s): I10 - Essential (primary) hypertension (2) DVT prophylaxis Current Visit: Yes Status: Acute (3) COPD (chronic obstructive pulmonary disease) Current Visit: Yes Status: Chronic Qualifiers: COPD type: unspecified COPD Qualified Code(s): J44.9 - Chronic obstructive pulmonary disease, unspecified (4) Morbid obesity Current Visit: Yes Status: Chronic Qualifiers: Obesity type: unspecified obesity type Qualified Code(s): E66.01 - Morbid ( severe) obesity due to excess calories (5) Partial small bowel obstruction Current Visit: Yes Status: Acute (6) Obesity (BMI 35.0-39.9 without comorbidity) Current Visit: Yes Status: Acute Assessment and plan: Mr. Herring is a 61 year old male with past medical history significant for ventral hernia repair, prior history of bowel obstruction, hypertension, diabetes, COPD, Chronic respiratory failure on 3 L home oxygenation - resents the ER with abdominal pain. Patient was diagnosed to have small bowel obstruction underwent surgery for the same on 12/27/2016. SBO s/p small bowel resection: Pt doing well post-op. Bowel sounds minimal. On TPN. On full liquid diet. Surgery following. Essential HTN: On IV meds, metoprolol and hydralazine pRN. Will switch to PO meds as tolerated. Sore throat: Mild redness and swelling noted. ? trauma from intubation. Worsened over the last 2 days. Uvula appears mildly swollen. No airway compromise. Started on low dose steroids.No indication for abx. Monitor. will need ENT consult if any worsening of symptoms. COPD: Not in exacerbation, continue home meds Diastolic dysfunction: Restarted on lasix as b/l LE edema noted. Echo shows preserved EF. diastolic dysfunction. GERD: continue PPI. No acute issues DVT Prophylaxis: Sub Q heparin - Time Spent With Patient 25 - 35 minutes - Subjective Interval history: seen and examined at bedside. Sitting up in a chair this morning. Denies any nausea, vomiting. LE swelling has worsened. Reports sore throat and discomfort which has progressed in the last 2 days. - Constitutional Vitals: Temp Pulse Resp BP Pulse Ox 97.7 F 97 20 135/97 98 03/27/17 11:52 01/03/17 11:52 01/03/17 11:54 01/03/17 11:45 01/03/17 11:54 General appearance: Present: cooperative, A&O X 3, pleasant, no acute distress, answers questions appropriately - Head Head exam: Present: atraumatic, normocephalic - Eye Eye exam: Present: PERRL, conjuntiva pink, sclera anicteric Pupils: Present: PERRL - Neck Neck exam general surgery: Present: supple, trachea midline. Absent: lymphadenopathy - Respiratory Respiratory exam: Present: CTAB. Absent: accessory muscle use, rales, rhonchi, wheezes - Cardiovascular Cardiovascular exam: Present: RRR, +S1, +S2. Absent: diastolic murmur, gallop, rubs, systolic murmur - GI/Abdominal GI/Abdominal exam: Present: normal bowel sounds, soft, no peritoneal signs ( surgical site clean). Absent: distended, tenderness - Extremities Exam Extremities exam: Present: pedal edema, warm, radial pulses palpable and symetrical. Absent: calf tenderness, cyanotic - Neurological Exam Neurological exam: Present: CN II-XII intact, oriented X3, no focal deficits. Absent: pronater drift, facial droop, speech deficit - Skin Skin exam: Present: dry, intact Internal Medicine: Result - Labs CBC & Chem 7: 01/03/17 04:05 01/03/17 10:50 Labs: Short CBC 01/03/17 Range/Units 04:05 WBC 8.3 (4.3-11.1) K/mcL Hgb 9.8 L (12.9-16.9) g/dL Hct 31.9 L (37.5-50.1) % Plt Count 310 (140-400) K/mcL Neutrophils # 6.6 (1.6-8.9) K/mcL BMP 01/03/17 10:50 Sodium 140 Potassium 3.9 Chloride 101 Carbon Dioxide 28 BUN 34 H Creatinine 0.92 Glucose 143 H Calcium 8.8 - ABG Interpretation ABG results: ABG ABG pH 7.37 pH Units (7.32-7.45) 12/30/16 04:27 ABG pCO2 54 mmHg (35-45) H 12/30/16 04:27 ABG pO2 100 mmHg (85-104) 12/30/16 04:27 ABG O2 Saturation 98 % (95-98) 12/30/16 04:27 PT/INR, D-dimer PT 12.6 Seconds (9.4-12.1) H 12/25/16 03:00 - VTE Documentation of Mechanical Device: Intermittent pneumatic compression device Consult Discharge Plan - Plan Referrals: Bryce Jones DO [Primary Care Provider] - (SENT WEB REQUEST ON @ [id number])
[2017-01-03] MEDS ORDERED: Clinimix E 5%-15% SOLUTION 2,000 ML with MVI, adult with vitamin K 10 ML IVC SCH (17:00)
[2017-01-04] MEDS: Ipratropium/Albuterol Neb 3 ML IH SCH ×6 (03:58→23:04)
[2017-01-04 04:44] LABS: Basophils % 0.4 %; Eosinophils % 0.2 %; Hematocrit 32.7 % (37.5-50.1); Hemoglobin 10.1 g/dL (12.9-16.9); Immature Granulocytes % 3.5 % (0-4); Lymphocytes # 0.6 K/mcL (0.6-4.6); Lymphocytes % 7.2 %; Mean Corpuscular HGB Conc 30.9 g/dL (31.6-35.5); Mean Corpuscular Hemoglobin 27.2 pg (28.0-33.3); Mean Corpuscular Volume 88.1 fL (83.0-100.0); Mean Platelet Volume 9.7 fL (9.4-12.4); Monocytes # 0.4 K/mcL (0.0-1.3); Monocytes % 4.6 %; Nucleated Red Blood Cells 0.2 /100 WBC (0); Platelet Count 258 K/mcL (140-400); Red Blood Count 3.71 M/mcL (4.19-5.50); Red Cell Distribution Width 16.7 % (11.5-14.5); Segmented Neutrophils % 84.1 %
[2017-01-04 04:57] LABS: BUN/Creatinine Ratio 35 (6-26); Blood Urea Nitrogen 30 mg/dL (8-26); Carbon Dioxide 28 mEq/L (19-29); Chloride 101 mEq/L (98-109); Glucose 234 mg/dL (70-99); Osmolality,Calculated 298 (280-300); Sodium 137 mEq/L (136-145); eGFR For African Americans > 60 (> 60); eGFR For Non-African Americans > 60 (> 60)
[2017-01-04 05:10] LABS: Calcium 8.5 mg/dL (8.6-10.8)
[2017-01-04 05:13] LABS: Anisocytosis 1+ (Not Present); Microcytosis Present (Not Present); Platelet Estimate Normal (Normal)
[2017-01-04 05:14] LABS: Polychromasia 1+ (Not Present)
[2017-01-04] MEDS: Insulin LISPRO 300 UNITS/3 ML VIAL SQ SCH ×6 (06:22→20:18)
[2017-01-04] MEDS: *HR* Metoprolol 5 MG/5 ML VIAL IVP SCH ×3 (06:24→16:48)
[2017-01-04] MEDS: Pantoprazole 40 MG VIAL IVP SCH ×2 (06:24→16:48)
[2017-01-04] MEDS: *HR* Heparin 5,000 UNIT/ML VIAL SQ SCH ×3 (06:25→20:13)
[2017-01-04] MEDS: Budesonide/Formoterol 160/4.5 MDI IH SCH ×2 (08:00→19:41)
--- NOTE | 2017-01-04 08:47 | General Surgery Progress Note ---
Date of Encounter: 01/04/17 Time of Encounter: 07:45 - Assessment and Plan (1) Partial small bowel obstruction Current Visit: Yes Status: Acute POD#9 #1 lysis of adhesions for 90 minutes #2 small bowel resection Pt. has return of bowel function with +bowel sounds, +flatus, and +bm There is some erythema around the incision site. Drainage appears serosanguinous. Will place some iodoform for wicking. Will consider CT scan if erythema/drainage increases around incision site. Trend WBC. 11.1>8.3 PO pain meds started, to be weaned off IV pain meds Tolerating full liquids TPN- managed by rehab therapy manager. Will begin decreasing TPN. full liquid diet, pain control, incentive spirometry, up to chair, antiemetics, GI prophylaxis w/protonix, DVT prophylaxis with subq heparin 01/04/2017. 7:45 AM. The patient is seen and evaluated. He continues to have wheezing in both lung banks. His abdomen is soft and nontender. There is a small draining area by the umbilicus consistent with superficial wound infection. This should resolve with iodoform packing. He is passing flatus and having bowel movements. I will advance him to full liquids. (2) COPD (chronic obstructive pulmonary disease) Current Visit: No Status: Chronic Management per primary team Qualifiers: COPD type: unspecified COPD Qualified Code(s): J44.9 - Chronic obstructive pulmonary disease, unspecified (3) GERD (gastroesophageal reflux disease) Current Visit: No Status: Chronic PPI daily Qualifiers: Esophagitis presence: esophagitis presence not specified Qualified Code(s) : K21.9 - Gastro-esophageal reflux disease without esophagitis (4) HTN (hypertension) Current Visit: No Status: Chronic Hydralazine IV and metoprolol IV PRN Management per primary service Qualifiers: Hypertension type: essential hypertension Qualified Code(s): I10 - Essential (primary) hypertension (5) Morbid obesity with BMI of 40.0-44.9, adult Current Visit: No Status: Chronic (6) DVT prophylaxis Current Visit: Yes Status: Acute Continue heparin 5,000 units SQ every 8 hours Subjective Narrative: The patient continues struggling with his breathing. His main complaint his phlegm buildup in his throat and lungs. A secondary complaint is abdominal discomfort. He is having both flatus and bowel movements. He had a small area of superficial wound infection by the umbilicus. This was treated with staple removal and placement of iodoform wick. He feels much better. Overall I am pleased this clinical course. His bowel obstruction has completely resolved. Objective Vital Signs - Last 8 Hours Temp Pulse Resp BP Pulse Ox 01/04/17 08:00 18 98 01/04/17 04:47 8 16 98 01/04/17 04:10 97.7 F 91 16 153/79 98 01/04/17 03:58 18 98 Intake and Output 01/03/17 01/04/17 01/04/17 23:59 07:59 15:59 Intake Total 480 / 480 Output Total 650 / 650 300 / 300 Balance -170 / -170 -300 / -300 Intake: Oral 480 / 480 Output: Catheter 650 / 650 300 / 300 Other: Meal Dinner Percent of Meal Consumed 15% Stool Size Small Stool Consistency liquid Stool Color Brown Yellow Weight 137.3 kg Blood Glucose* 130 277 105 Patient Weight 01/04/17 23:59 Weight 137.3 kg - General physical appearance obese - Respiratory wheezing: bilateral - Cardiovascular Cardiovascular exam: Present: RRR, distant heart sounds - Abdomen Abdomen: Present: bowel sounds present, soft, non tender - Incision Incision: Present: draining (The patient has a small amount of drainage at the area of the umbilicus where a iodoform wick was placed.) - Neurologic normal coordination, normal sensation - Psychiatric oriented to time, oriented to person, oriented to place, speech is normal, memory intact - Labs 01/04/17 04:30 01/04/17 04:30 Diabetes panel 01/03/17 01/04/17 Range/Units 10:50 04:30 Sodium 140 137 (136-145) mEq/L Potassium 3.9 4.0 (3.5-4.5) mEq/L Chloride 101 101 (98-109) mEq/L Carbon Dioxide 28 28 (19-29) mEq/L BUN 34 H 30 H (8-26) mg/dL Creatinine 0.92 0.86 (0.72-1.25) mg/dL Glucose 143 H 234 H (70-99) mg/dL Calcium 8.8 8.5 L (8.6-10.8) mg/dL Calcium panel 01/03/17 01/04/17 Range/Units 10:50 04:30 Calcium 8.8 8.5 L (8.6-10.8) mg/dL Pituitary panel 01/03/17 01/04/17 Range/Units 10:50 04:30 Sodium 140 137 (136-145) mEq/L Potassium 3.9 4.0 (3.5-4.5) mEq/L Chloride 101 101 (98-109) mEq/L Carbon Dioxide 28 28 (19-29) mEq/L BUN 34 H 30 H (8-26) mg/dL Creatinine 0.92 0.86 (0.72-1.25) mg/dL Glucose 143 H 234 H (70-99) mg/dL Calcium 8.8 8.5 L (8.6-10.8) mg/dL Adrenal panel 01/03/17 01/04/17 Range/Units 10:50 04:30 Sodium 140 137 (136-145) mEq/L Potassium 3.9 4.0 (3.5-4.5) mEq/L Chloride 101 101 (98-109) mEq/L Carbon Dioxide 28 28 (19-29) mEq/L BUN 34 H 30 H (8-26) mg/dL Creatinine 0.92 0.86 (0.72-1.25) mg/dL Glucose 143 H 234 H (70-99) mg/dL Calcium 8.8 8.5 L (8.6-10.8) mg/dL - VTE Documentation of Mechanical Device: Intermittent pneumatic compression device Consult Discharge Plan - Plan Referrals: Bryce Jones DO [Primary Care Provider] - (SENT WEB REQUEST ON 01-03-17 @ [phone] sent email on 01-04-17 @ [phone])
[2017-01-04] MEDS: predniSONE 20 MG TABLET PO SCH ×2 (08:54→16:48)
[2017-01-04] MEDS: Furosemide 40 MG/4 ML VIAL IVP SCH ×2 (08:56→20:13)
[2017-01-04] MEDS: Ondansetron 4 MG/2 ML VIAL IVP PRN ×3 (09:06→21:53)
[2017-01-04] MEDS: *HR* HYDROmorphone 2 MG/ML SYRINGE IVP PRN ×2 (09:12→21:53)
[2017-01-04] MEDS: *HR* OxyCODONE/APAP 10/325 TABLET PO PRN (12:52)
--- NOTE | 2017-01-04 12:52 | Internal Med Progress Note ---
Date of Encounter: 01/04/17 Time of Encounter: 16:39 - Assessment and plan (1) HTN (hypertension) Current Visit: No Status: Chronic Qualifiers: Hypertension type: essential hypertension Qualified Code(s): I10 - Essential (primary) hypertension (2) DVT prophylaxis Current Visit: Yes Status: Acute (3) COPD (chronic obstructive pulmonary disease) Current Visit: Yes Status: Chronic Qualifiers: COPD type: unspecified COPD Qualified Code(s): J44.9 - Chronic obstructive pulmonary disease, unspecified (4) Morbid obesity Current Visit: Yes Status: Chronic Qualifiers: Obesity type: unspecified obesity type Qualified Code(s): E66.01 - Morbid ( severe) obesity due to excess calories (5) Partial small bowel obstruction Current Visit: Yes Status: Acute (6) Obesity (BMI 35.0-39.9 without comorbidity) Current Visit: Yes Status: Acute Assessment and plan: Mr. Herring is a 61 year old male with past medical history significant for ventral hernia repair, prior history of bowel obstruction, hypertension, diabetes, COPD, Chronic respiratory failure on 3 L home oxygenation - resents the ER with abdominal pain. Patient was diagnosed to have small bowel obstruction underwent surgery for the same on 12/27/2016. SBO s/p small bowel resection: Pt doing well post-op. Bowel sounds minimal. On TPN. On full liquid diet. Surgery following. Essential HTN: On IV meds, metoprolol and hydralazine pRN. Will switch to PO meds as tolerated. Sore throat: Mild redness and swelling noted. ? trauma from intubation. swelling improved with low dose steroids. continue COPD: Not in exacerbation, continue home meds Diastolic dysfunction: Restarted on lasix as b/l LE edema noted. Echo shows preserved EF. diastolic dysfunction. GERD: continue PPI. No acute issues DVT Prophylaxis: Sub Q heparin - Time Spent With Patient 25 - 35 minutes - Subjective Interval history: seen and examined at bedside. Sitting up in a chair this morning. Denies any nausea, vomiting. LE swelling has worsened. Reports sore throat and discomfort which has progressed in the last 2 days. - Constitutional Vitals: Temp Pulse Resp BP Pulse Ox 98.5 F 99 18 115/59 97 01/04/17 10:53 01/04/17 12:07 01/04/17 11:03 01/04/17 10:53 01/04/17 11:03 General appearance: Present: cooperative, A&O X 3, pleasant, no acute distress, answers questions appropriately - Head Head exam: Present: atraumatic, normocephalic - Eye Eye exam: Present: PERRL, conjuntiva pink, sclera anicteric Pupils: Present: PERRL - Neck Neck exam general surgery: Present: supple, trachea midline. Absent: lymphadenopathy - Respiratory Respiratory exam: Present: CTAB. Absent: accessory muscle use, rales, rhonchi, wheezes - Cardiovascular Cardiovascular exam: Present: RRR, +S1, +S2. Absent: diastolic murmur, gallop, rubs, systolic murmur - GI/Abdominal GI/Abdominal exam: Present: normal bowel sounds, soft (surgical site clean), no peritoneal signs. Absent: distended, tenderness - Extremities Exam Extremities exam: Present: warm, radial pulses palpable and symetrical. Absent : calf tenderness, cyanotic, pedal edema - Neurological Exam Neurological exam: Present: CN II-XII intact, oriented X3, no focal deficits. Absent: pronater drift, facial droop, speech deficit - Skin Skin exam: Present: dry, intact Internal Medicine: Result - Labs CBC & Chem 7: 01/04/17 04:30 01/04/17 04:30 Labs: Short CBC 01/04/17 Range/Units 04:30 WBC 8.3 (4.3-11.1) K/mcL Hgb 10.1 L (12.9-16.9) g/dL Hct 32.7 L (37.5-50.1) % Plt Count 258 (140-400) K/mcL Neutrophils # 7.0 (1.6-8.9) K/mcL BMP 01/04/17 04:30 Sodium 137 Potassium 4.0 Chloride 101 Carbon Dioxide 28 BUN 30 H Creatinine 0.86 Glucose 234 H Calcium 8.5 L - ABG Interpretation ABG results: ABG ABG pH 7.37 pH Units (7.32-7.45) 12/30/16 04:27 ABG pCO2 54 mmHg (35-45) H 12/30/16 04:27 ABG pO2 100 mmHg (85-104) 12/30/16 04:27 ABG O2 Saturation 98 % (95-98) 12/30/16 04:27 PT/INR, D-dimer PT 12.6 Seconds (9.4-12.1) H 12/25/16 03:00 - VTE Documentation of Mechanical Device: Intermittent pneumatic compression device Consult Discharge Plan - Plan Referrals: Viviane Guan DO [Resident] - 01/17/17 2:30 pm Bryce Jones DO [Primary Care Provider] - ()
[2017-01-04] MEDS: clonazePAM 1 MG TABLET PO PRN (17:27)
[2017-01-05] MEDS: *HR* Metoprolol 5 MG/5 ML VIAL IVP SCH ×3 (01:20→11:37)
[2017-01-05] MEDS: Insulin LISPRO 300 UNITS/3 ML VIAL SQ SCH ×7 (01:20→23:39)
[2017-01-05] MEDS: *HR* OxyCODONE/APAP 10/325 TABLET PO PRN ×3 (03:17→20:17)
[2017-01-05] MEDS: Ipratropium/Albuterol Neb 3 ML IH SCH ×6 (03:44→23:34)
[2017-01-05 05:35] LABS: Basophils % 0.3 %; Eosinophils % 0.3 %; Hematocrit 32.4 % (37.5-50.1); Hemoglobin 10.2 g/dL (12.9-16.9); Immature Granulocytes % 2.2 % (0-4); Lymphocytes # 0.6 K/mcL (0.6-4.6); Lymphocytes % 8.3 %; Mean Corpuscular HGB Conc 31.5 g/dL (31.6-35.5); Mean Corpuscular Hemoglobin 27.8 pg (28.0-33.3); Mean Corpuscular Volume 88.3 fL (83.0-100.0); Mean Platelet Volume 10.2 fL (9.4-12.4); Monocytes # 0.5 K/mcL (0.0-1.3); Monocytes % 6.7 %; Neutrophils # 6.1 K/mcL (1.6-8.9); Nucleated Red Blood Cells 0.3 /100 WBC (0); Platelet Count 264 K/mcL (140-400); Red Blood Count 3.67 M/mcL (4.19-5.50); Red Cell Distribution Width 16.8 % (11.5-14.5); Segmented Neutrophils % 82.2 %
[2017-01-05 05:49] LABS: BUN/Creatinine Ratio 32 (6-26); Blood Urea Nitrogen 30 mg/dL (8-26); Calcium 8.5 mg/dL (8.6-10.8); Carbon Dioxide 30 mEq/L (19-29); Chloride 97 mEq/L (98-109); Glucose 135 mg/dL (70-99); Magnesium 1.8 mg/dL (1.6-2.6); Osmolality,Calculated 290 (280-300); Potassium 4.1 mEq/L (3.5-4.5); Sodium 136 mEq/L (136-145); eGFR For African Americans > 60 (> 60); eGFR For Non-African Americans > 60 (> 60)
[2017-01-05] MEDS: *HR* Heparin 5,000 UNIT/ML VIAL SQ SCH ×3 (06:18→22:25)
[2017-01-05] MEDS: Pantoprazole 40 MG VIAL IVP SCH (06:18)
[2017-01-05 06:27] LABS: Platelet Estimate Normal (Normal)
[2017-01-05] MEDS: Budesonide/Formoterol 160/4.5 MDI IH SCH ×2 (07:52→20:14)
[2017-01-05] MEDS: Furosemide 40 MG/4 ML VIAL IVP SCH ×2 (07:53→22:24)
[2017-01-05] MEDS: predniSONE 20 MG TABLET PO SCH ×2 (07:53→15:03)
--- NOTE | 2017-01-05 08:55 | General Surgery Progress Note ---
Date of Encounter: 01/05/17 Time of Encounter: 08:55 - Assessment and Plan (1) Partial small bowel obstruction Status: Acute POD#11 #1 lysis of adhesions for 90 minutes #2 small bowel resection Pt. has return of bowel function with +bowel sounds, +flatus, and +bm There is some erythema around the incision site. Drainage appears serosanguinous. Will change dressing and pack with incision site with plain gauze packing. Will consider CT scan if erythema/drainage increases around incision site, if WBC begins to increase, or if he becomes febrile. Trend WBC. 11.1>8.3>7.4 PO pain meds started, to be weaned off IV pain meds Tolerating full liquids. Will advance to soft solids. TPN has been discontinued as patient is tolerating feeds/ensure soft solid diet, pain control, incentive spirometry, up to chair, antiemetics, GI prophylaxis w/protonix, DVT prophylaxis with subq heparin (2) COPD (chronic obstructive pulmonary disease) Status: Chronic Management per primary team Qualifiers: COPD type: unspecified COPD Qualified Code(s): J44.9 - Chronic obstructive pulmonary disease, unspecified (3) GERD (gastroesophageal reflux disease) Status: Chronic PPI daily Qualifiers: Esophagitis presence: esophagitis presence not specified Qualified Code(s) : K21.9 - Gastro-esophageal reflux disease without esophagitis (4) HTN (hypertension) Status: Chronic Hydralazine IV and metoprolol IV PRN Management per primary service Qualifiers: Hypertension type: essential hypertension Qualified Code(s): I10 - Essential (primary) hypertension (5) Morbid obesity with BMI of 40.0-44.9, adult Status: Chronic (6) DVT prophylaxis Status: Acute Continue heparin 5,000 units SQ every 8 hours Subjective Patient reports: feels better, still having pain, pain is less, tolerating liquids well, flatus, bowel movement, afebrile Narrative: Patient seen and examined. On Bilevel. States he is feeling better today. Continues to have good stooling and flatus. He also continues to have redness/ drainage at incision site. Will change dressing, irrigated surgical site, and place plain gauze packing. Objective Vital Signs - Last 8 Hours Temp Pulse Resp BP Pulse Ox 01/05/17 07:52 18 96 01/05/17 07:27 97.3 F L 86 16 141/83 96 01/05/17 04:48 80 14 96 01/05/17 03:46 14 96 01/05/17 03:39 97.8 F 93 16 131/81 96 Intake and Output 01/04/17 01/05/17 01/05/17 23:59 07:59 15:59 Output Total 850 / 850 200 / 200 Balance -850 / -850 -200 / -200 Output: Urine 850 / 850 200 / 200 Other: Weight 137.3 kg Blood Glucose* 164 124 Patient Weight 01/05/17 23:59 Weight 137.3 kg - Additional Exam - General physical appearance obese - Respiratory wheezing: bilateral - Cardiovascular Cardiovascular exam: Present: RRR, distant heart sounds - Abdomen Abdomen: Present: bowel sounds present, soft, non tender - Incision Incision: Present: draining (The patient has a small amount of drainage at the area of the umbilicus where a iodoform wick was placed.) - Neurologic normal coordination, normal sensation - Psychiatric oriented to time, oriented to person, oriented to place, speech is normal, memory intact - Labs 01/06/17 03:45 01/06/17 03:45 Diabetes panel 01/05/17 Range/Units 04:50 Sodium 136 (136-145) mEq/L Potassium 4.1 (3.5-4.5) mEq/L Chloride 97 L (98-109) mEq/L Carbon Dioxide 30 H (19-29) mEq/L BUN 30 H (8-26) mg/dL Creatinine 0.93 (0.72-1.25) mg/dL Glucose 135 H (70-99) mg/dL Calcium 8.5 L (8.6-10.8) mg/dL Calcium panel 01/05/17 Range/Units 04:50 Calcium 8.5 L (8.6-10.8) mg/dL Pituitary panel 01/05/17 Range/Units 04:50 Sodium 136 (136-145) mEq/L Potassium 4.1 (3.5-4.5) mEq/L Chloride 97 L (98-109) mEq/L Carbon Dioxide 30 H (19-29) mEq/L BUN 30 H (8-26) mg/dL Creatinine 0.93 (0.72-1.25) mg/dL Glucose 135 H (70-99) mg/dL Calcium 8.5 L (8.6-10.8) mg/dL Adrenal panel 01/05/17 Range/Units 04:50 Sodium 136 (136-145) mEq/L Potassium 4.1 (3.5-4.5) mEq/L Chloride 97 L (98-109) mEq/L Carbon Dioxide 30 H (19-29) mEq/L BUN 30 H (8-26) mg/dL Creatinine 0.93 (0.72-1.25) mg/dL Glucose 135 H (70-99) mg/dL Calcium 8.5 L (8.6-10.8) mg/dL - VTE Documentation of Mechanical Device: Intermittent pneumatic compression device Consult Discharge Plan - Plan Additional Instructions: Please follow up with your primary care physician within one week after your discharge from the hospital. Please follow up with Dr. Jones (Surgery) within one to two weeks after your discharge from the hospital. Continue to advance diet as tolerating. You are currently receiving soft diet. Your home dose of Lasix has been increased, please take this medication as prescribed. Please resume your home medications as prescribed by your primary care physician. Referrals: Viviane Guan DO [Resident] - (PATIENT IS GOING TO [facility] NO PCP APPOINTMENT NEEDED AT THIS TIME) Bryce Jones DO [Primary Care Provider] - () Prescriptions: OxyCODONE/APAP 10/325 [Percocet 10/325 MG] 1 each PO Q6HR PRN #20 tablet PRN Reason: MODERATE PAIN 4-6 - Attending Attestation I examined this patient and my medical decision-making was reviewed with the BALLET DANCER/PA/Advanced Practice Nurse/Resident Physician. I agree with the documented findings, disposition and treatment plan as described except to the extent set forth below. The patient is seen and evaluated with the resident on morning rounds. He has regained his bowel function. He has a superficial wound infection and is being treated appropriately. We will advance his diet. Overall I am pleased his clinical course. Jose Antonio Santana MD FACS
[2017-01-05] MEDS ORDERED: CloNIDine Patch 0.1 MG PATCH (WEEKLY) TD SCH (09:00)
[2017-01-05] MEDS: Ondansetron 4 MG/2 ML VIAL IVP PRN ×2 (10:17→22:36)
[2017-01-05] MEDS: clonazePAM 1 MG TABLET PO PRN ×2 (11:44→23:38)
[2017-01-05] MEDS ORDERED: *HR* Metoprolol 5 MG/5 ML VIAL IVP PRN (14:12)
--- NOTE | 2017-01-05 14:18 | Internal Med Progress Note ---
Date of Encounter: 01/05/17 Time of Encounter: 14:00 - Assessment and plan (1) HTN (hypertension) Current Visit: No Status: Chronic Qualifiers: Hypertension type: essential hypertension Qualified Code(s): I10 - Essential (primary) hypertension (2) DVT prophylaxis Current Visit: Yes Status: Acute (3) COPD (chronic obstructive pulmonary disease) Current Visit: No Status: Chronic Qualifiers: COPD type: unspecified COPD Qualified Code(s): J44.9 - Chronic obstructive pulmonary disease, unspecified (4) Morbid obesity Current Visit: Yes Status: Chronic Qualifiers: Obesity type: unspecified obesity type Qualified Code(s): E66.01 - Morbid ( severe) obesity due to excess calories (5) Partial small bowel obstruction Current Visit: Yes Status: Acute Assessment and plan: Mr. Herring is a 61 year old male with past medical history significant for ventral hernia repair, prior history of bowel obstruction, hypertension, diabetes, COPD, Chronic respiratory failure on 3 L home oxygenation - presents to the ER with abdominal pain. Patient was diagnosed to have small bowel obstruction underwent surgery for the same on 12/27/2016. SBO s/p small bowel resection: Pt doing well post-op. Normal Bowel sounds. Tolerating Full liquid diet. Advanced to Soft Diet. Surgery following. Essential HTN: On IV meds, metoprolol and hydralazine pRN. BP within acceptable range. Will restart home PO meds (Losartan and Metoprolol). IV Hydralazine and Metoprolol IV PRN. Continue to closely monitor BP. Sore throat: Improving. Likely secondary to trauma from intubation. swelling improved with low dose steroids. continue COPD: Not in exacerbation, continue home meds. Bronchodilators Diastolic dysfunction: Continue lasix as b/l LE edema noted. Echo shows preserved EF. diastolic dysfunction. GERD: continue PPI. No acute issues DVT Prophylaxis: Sub Q heparin PT/OT eval - Subjective Interval history: Patient seen and examined. Sitting in chair and reports of being sob overnight requiring bipap support. States he has history of COPD and is on home oxygen. He was restarted on Lasix as well and is noted to have good urine output. Currently saturating well on nasal cannula and states he feels better compared to last night. Reports of passing flatus today but no BM as of yet. - Constitutional Vitals: Temp Pulse Resp BP Pulse Ox 97.8 F 97 16 147/84 95 01/05/17 11:18 01/05/17 12:00 01/05/17 11:42 01/05/17 11:18 01/05/17 11:42 General appearance: Present: cooperative, A&O X 3, morbidly obese, pleasant, no acute distress, answers questions appropriately - Head Head exam: Present: atraumatic, normocephalic - Eye Eye exam: Present: conjuntiva pink, sclera anicteric - Respiratory Respiratory exam: Present: decreased breath sounds, wheezes (bilateral expiratory wheezing). Absent: respiratory distress - Cardiovascular Cardiovascular exam: Present: RRR, +S1, +S2. Absent: diastolic murmur, gallop, rubs, systolic murmur - GI/Abdominal GI/Abdominal exam: Present: normal bowel sounds (dressing intact), soft, no peritoneal signs. Absent: distended, tenderness - Extremities Exam Extremities exam: Present: pedal edema, warm, radial pulses palpable and symetrical. Absent: calf tenderness - Neurological Exam Neurological exam: Present: alert, oriented X3 - Psychiatric Psychiatric exam: Present: normal affect, normal mood Internal Medicine: Result - Labs CBC & Chem 7: 01/05/17 04:50 01/05/17 04:50 Labs: Short CBC 01/05/17 Range/Units 04:50 WBC 7.4 (4.3-11.1) K/mcL Hgb 10.2 L (12.9-16.9) g/dL Hct 32.4 L (37.5-50.1) % Plt Count 264 (140-400) K/mcL Neutrophils # 6.1 (1.6-8.9) K/mcL BMP 01/05/17 04:50 Sodium 136 Potassium 4.1 Chloride 97 L Carbon Dioxide 30 H BUN 30 H Creatinine 0.93 Glucose 135 H Calcium 8.5 L - ABG Interpretation ABG results: ABG ABG pH 7.37 pH Units (7.32-7.45) 12/30/16 04:27 ABG pCO2 54 mmHg (35-45) H 12/30/16 04:27 ABG pO2 100 mmHg (85-104) 12/30/16 04:27 ABG O2 Saturation 98 % (95-98) 12/30/16 04:27 PT/INR, D-dimer PT 12.6 Seconds (9.4-12.1) H 12/25/16 03:00 - Impressions Impressions Chest X-Ray 01/04/17 10:38 IMPRESSION: 1. Right upper extremity PICC terminating in the superior vena cava. 2. Mild left basilar atelectasis. D/ / Erasto Everett MD / Erasto Everett MD Interpreting Provider: Erasto Everett MD - VTE Documentation of Mechanical Device: Intermittent pneumatic compression device Consult Discharge Plan - Plan Referrals: Viviane Guan DO [Resident] - 01/17/17 2:30 pm Bryce Jones DO [Primary Care Provider] - ()
[2017-01-06] MEDS: Ipratropium/Albuterol Neb 3 ML IH SCH ×3 (03:49→11:17)
[2017-01-06 04:47] LABS: Hematocrit 33.4 % (37.5-50.1); Hemoglobin 10.5 g/dL (12.9-16.9); Lymphocytes # 0.9 K/mcL (0.6-4.6); Mean Corpuscular HGB Conc 31.4 g/dL (31.6-35.5); Mean Corpuscular Hemoglobin 27.2 pg (28.0-33.3); Mean Corpuscular Volume 86.5 fL (83.0-100.0); Mean Platelet Volume 10.5 fL (9.4-12.4); Nucleated Red Blood Cells 0.3 /100 WBC (0); Platelet Count 331 K/mcL (140-400); Red Blood Count 3.86 M/mcL (4.19-5.50); Red Cell Distribution Width 16.4 % (11.5-14.5)
[2017-01-06 05:02] LABS: BUN/Creatinine Ratio 26 (6-26); Blood Urea Nitrogen 25 mg/dL (8-26); Calcium 8.6 mg/dL (8.6-10.8); Carbon Dioxide 32 mEq/L (19-29); Chloride 93 mEq/L (98-109); Glucose 112 mg/dL (70-99); Magnesium 1.7 mg/dL (1.6-2.6); Osmolality,Calculated 287 (280-300); Potassium 3.6 mEq/L (3.5-4.5); Sodium 136 mEq/L (136-145); eGFR For African Americans > 60 (> 60); eGFR For Non-African Americans > 60 (> 60)
[2017-01-06 05:17] LABS: Monocytes # 0.6 K/mcL (0.0-1.3); Neutrophils # 5.7 K/mcL (1.6-8.9)
[2017-01-06 05:18] LABS: Platelet Estimate Normal (Normal)
[2017-01-06] MEDS: *HR* Heparin 5,000 UNIT/ML VIAL SQ SCH ×2 (05:49→14:22)
[2017-01-06] MEDS: Insulin LISPRO 300 UNITS/3 ML VIAL SQ SCH ×3 (05:50→13:15)
[2017-01-06] MEDS ORDERED: Pantoprazole 40 MG VIAL IVP SCH (06:00)
[2017-01-06] MEDS: Budesonide/Formoterol 160/4.5 MDI IH SCH (07:47)
[2017-01-06] MEDS ORDERED: (Roflumilast [Daliresp] 500 MCG) PO SCH (09:00)
[2017-01-06] MEDS ORDERED: Docusate Oral Soln 100 MG/10 ML UDC PO SCH (09:00)
[2017-01-06] MEDS: predniSONE 20 MG TABLET PO SCH (09:02)
[2017-01-06] MEDS: *HR* OxyCODONE/APAP 10/325 TABLET PO PRN (09:02)
[2017-01-06] MEDS: Furosemide 40 MG/4 ML VIAL IVP SCH (09:03)
--- NOTE | 2017-01-06 09:25 | General Surgery Progress Note ---
Date of Encounter: 01/05/17 Time of Encounter: 09:19 - Assessment and Plan (1) Partial small bowel obstruction Status: Acute POD#12 #1 lysis of adhesions for 90 minutes #2 small bowel resection Pt. has return of bowel function with +bowel sounds, +flatus, and +bm He has made a very nice recovery from his bowel resection. He has had full return of bowel function. His incision is draining a little serosanguineous fluid. His wbc is wnl and has remained wnl postoperatively. He has remained afebrile. He has tolerated advancement of diet. He is ready to be discharged to a rehabilitation facility from a surgical standpoint. He needs to follow-up with Dr. Jones or Elizabeth Dowell in 1-2 weeks. (2) COPD (chronic obstructive pulmonary disease) Status: Chronic Management per primary team Qualifiers: COPD type: unspecified COPD Qualified Code(s): J44.9 - Chronic obstructive pulmonary disease, unspecified (3) GERD (gastroesophageal reflux disease) Status: Chronic PPI daily Qualifiers: Esophagitis presence: esophagitis presence not specified Qualified Code(s) : K21.9 - Gastro-esophageal reflux disease without esophagitis (4) HTN (hypertension) Status: Chronic Hydralazine IV and metoprolol IV PRN Management per primary service Qualifiers: Hypertension type: essential hypertension Qualified Code(s): I10 - Essential (primary) hypertension (5) Morbid obesity with BMI of 40.0-44.9, adult Status: Chronic (6) DVT prophylaxis Status: Acute Continue heparin 5,000 units SQ every 8 hours Subjective Patient reports: feels better, pain is less, tolerating a regular diet, flatus, bowel movement, afebrile Narrative: Patient seen and examined. On Bilevel this am. Feeling much better. Having good BM/BS/Flatus. Incision is not overtly erythematous, is draining mild serosanguinious fluid. Objective Vital Signs - Last 8 Hours Temp Pulse Resp BP Pulse Ox 01/06/17 08:51 95 18 99 01/06/17 07:52 18 99 01/06/17 07:28 95 14 115/78 100 01/06/17 03:50 17 97 01/06/17 03:42 98.4 F 82 14 154/85 98 Intake and Output 01/05/17 01/06/17 01/06/17 23:59 07:59 15:59 Intake Total 600 / 600 0 / 0 360 / 360 Output Total 1959 Balance -1360 / -1360 -780 / - 360 / 360 Intake: Oral 600 / 600 0 / 0 360 / 360 Output: Urine 1959 Other: Meal Dinner Breakfast Percent of Meal Consumed 75% 100% Weight 136.4 kg Blood Glucose* 144 111 Patient Weight 01/06/17 23:59 Weight 136.4 kg - General physical appearance well developed, well nourished, no distress - Eyes normal ocular movement - Neck Neck exam: trachea midline - Respiratory wheezing: bilateral - Abdomen Abdomen: Present: bowel sounds present, soft - Incision Incision: Present: draining, clean and dry, intact - Neurologic CN 2-12 grossly intact - Psychiatric oriented to time, oriented to person, oriented to place - Labs 01/06/17 03:45 01/06/17 03:45 Diabetes panel 01/06/17 Range/Units 03:45 Sodium 136 (136-145) mEq/L Potassium 3.6 (3.5-4.5) mEq/L Chloride 93 L (98-109) mEq/L Carbon Dioxide 32 H (19-29) mEq/L BUN 25 (8-26) mg/dL Creatinine 0.95 (0.72-1.25) mg/dL Glucose 112 H (70-99) mg/dL Calcium 8.6 (8.6-10.8) mg/dL Calcium panel 01/06/17 Range/Units 03:45 Calcium 8.6 (8.6-10.8) mg/dL Phosphorus 3.0 (2.3-4.7) mg/dL Pituitary panel 01/06/17 Range/Units 03:45 Sodium 136 (136-145) mEq/L Potassium 3.6 (3.5-4.5) mEq/L Chloride 93 L (98-109) mEq/L Carbon Dioxide 32 H (19-29) mEq/L BUN 25 (8-26) mg/dL Creatinine 0.95 (0.72-1.25) mg/dL Glucose 112 H (70-99) mg/dL Calcium 8.6 (8.6-10.8) mg/dL Adrenal panel 01/06/17 Range/Units 03:45 Sodium 136 (136-145) mEq/L Potassium 3.6 (3.5-4.5) mEq/L Chloride 93 L (98-109) mEq/L Carbon Dioxide 32 H (19-29) mEq/L BUN 25 (8-26) mg/dL Creatinine 0.95 (0.72-1.25) mg/dL Glucose 112 H (70-99) mg/dL Calcium 8.6 (8.6-10.8) mg/dL - VTE Documentation of Mechanical Device: Intermittent pneumatic compression device Consult Discharge Plan - Plan Additional Instructions: Please follow up with your primary care physician within one week after your discharge from the hospital. Please follow up with Dr. Jones (Surgery) within one to two weeks after your discharge from the hospital. Continue to advance diet as tolerating. You are currently receiving soft diet. Your home dose of Lasix has been increased, please take this medication as prescribed. Please resume your home medications as prescribed by your primary care physician. Referrals: Viviane Guan DO [Resident] - (PATIENT IS GOING TO [facility] [place]NOTE 2] NO PCP APPOINTMENT NEEDED AT THIS TIME) Bryce Jones DO [Primary Care Provider] - () Prescriptions: OxyCODONE/APAP 10/325 [Percocet 10/325 MG] 1 each PO Q6HR PRN #20 tablet PRN Reason: MODERATE PAIN 4-6 - Attending Attestation I examined this patient and my medical decision-making was reviewed with the PRACTICE PERFORMANCE MANAGER/PA/Advanced Practice Nurse/Resident Physician. I agree with the documented findings, disposition and treatment plan as described except to the extent set forth below. The patient is seen and evaluated on morning rounds with the resident. He is stable on nighttime CPAP mask. He has good bowel sounds and bowel function. We will advance his diet. He does have a superficial wound infection that is being treated appropriately. Jose Antonio Jones MD FACS
[2017-01-06] MEDS: Ondansetron 4 MG/2 ML VIAL IVP PRN (09:58)
[2017-01-06 11:47] VITALS: BP 112/67
--- NOTE | 2017-01-06 12:04 | Discharge Summary ---
Date of Encounter: 01/05/17 Time of Encounter: 09:00 - Discharge Diagnosis (1) HTN (hypertension) Priority: Secondary Status: Chronic Qualifiers: Hypertension type: essential hypertension Qualified Code(s): I10 - Essential (primary) hypertension (2) DVT prophylaxis Priority: Secondary Status: Acute (3) COPD (chronic obstructive pulmonary disease) Priority: Secondary Status: Chronic Qualifiers: COPD type: unspecified COPD Qualified Code(s): J44.9 - Chronic obstructive pulmonary disease, unspecified (4) Morbid obesity Priority: Secondary Status: Chronic Qualifiers: Obesity type: unspecified obesity type Qualified Code(s): E66.01 - Morbid ( severe) obesity due to excess calories (5) Partial small bowel obstruction Priority: Primary Status: Acute - Discharge Medications Prescriptions: OxyCODONE/APAP 10/325 [Percocet 10/325 MG] 1 each PO Q6HR PRN #20 tablet PRN Reason: MODERATE PAIN 4-6 Home Medications: Albuterol Sulfate [Albuterol Inhaler] 2 puff IH Q4HR PRN 03/16/16 [History] Amlodipine Besylate 10 mg PO DAILY 03/16/16 [History] Azelastine 0.1% Nasal [place] [Astelin] 1 spray NS BID 03/16/16 [History] Budesonide/Formoterol 160/4.5 [Symbicort 160/4.5] 2 puff IH BIDR 03/16/16 [ History] Cetirizine HCl [Zyrtec] 10 mg PO DAILY 03/16/16 [History] ClonazePAM [Klonopin] 1 mg PO BID PRN 03/16/16 [History] Docusate [Colace] 300 mg PO BID PRN 03/16/16 [History] Ergocalciferol (VITAMIN D2) [Vitamin D] 400 unit PO DAILY 03/16/16 [History] Esomeprazole Magnesium [Nexium] 40 mg PO BID 03/16/16 [History] Fluticasone Propionate Nasal [Flonase] 2 spray NS DAILY 03/16/16 [History] Ketoconazole Shampoo [Nizoral Shampoo] 1 appl TP 3XW 03/16/16 [History] Polyethylene Glycol 3350 [MiraLAX] 17 gm PO DAILY 03/16/16 [History] Psyllium Seed (with Sugar) [Metamucil Powder] 1 each PO BID 03/16/16 [History] Roflumilast [Daliresp] 500 mcg PO DAILY 03/16/16 [History] Sodium Chloride [[place] Saline] 1 spray NS BID PRN 03/16/16 [History] Metoprolol [Lopressor] 12.5 mg PO BID #30 tablet 09/30/16 [Rx] Montelukast [Singulair] 10 mg PO HS #30 tablet 09/30/16 [Rx] Metoclopramide [Reglan] 10 mg PO ACHS 11/03/16 [History] Umeclidinium [place] [Incruse Ellipta] 62.5 mcg IH DAILY 11/03/16 [History] Aspirin [Lo-Dose Aspirin EC] 81 mg PO DAILY #30 tablet. 11/05/16 [Rx] Oxygen 3 l .ROUTE AD 11/20/16 [History] Ipratropium/Albuterol Neb [Duoneb] 3 ml IH [id number] 30 Days 12/10/16 [Rx] Losartan [Cozaar] 25 mg PO DAILY #30 tablet 12/10/16 [Rx] PredniSONE 10 mg PO DAILY #63 tablet 12/10/16 [Rx] CloNIDine Patch [Catapres-Tts] 0.1 mg TD QWEEK patch.tdwk 01/06/17 [Rx] Furosemide [Lasix] 40 mg PO BID #60 tablet 01/06/17 [Rx] GuaiFENesin ER [Mucinex] 600 mg PO BID PRN #0 tbbp.12hr 01/06/17 [Rx] Ipratropium/Albuterol Neb [Duoneb] 3 ml IH [id number] PRN inhsol 01/06/17 [Rx] OxyCODONE/APAP 10/325 [Percocet 10/325 MG] 1 each PO Q6HR PRN #20 tablet [Rx] Allergies/Adverse Reactions: Allergies morphine Allergy (Verified 12/21/16 10:35) Difficulty Breathing sulfamethoxazole [From Bactrim] Allergy (Verified 12/21/16 10:35) Hives trimethoprim [From Bactrim] Allergy (Verified 12/21/16 10:35) Hives codeine Adverse Reaction (Verified 12/21/16 10:35) Nausea Date of admission: 12/21/16 14:40 Primary care physician: Bryce Madrid Consults: 12/22/16 10:34 Consult to Union Organiser [CONS] Routine Reason for SW Consult: discharge 12/24/16 11:53 Consult to Nutrition [CONS] Routine Comment: Consulting Provider: NUTRITION Reason for Dietary Consult: TPN Start and Manage 12/27/16 13:09 Consult to Physical Therapy [CONS] Routine Comment: Evaluate, develop and implement POC OT [Consult to Occupational Therapy] [CONS] Routine Comment: Evaluate, develop and implement POC Discharging clinician: Elena Quiles Anticipated date of discharge: 01/06/17 - Patient Status Disposition: Transfer SNF Condition: Good Functional capacity at discharge: uses cane/walker Overall status at discharge: patient is progressing back to baseline - Discharge Instructions Follow Up With: Viviane Guan DO [Resident] - 01/17/17 2:30 pm Bryce Jones DO [Primary Care Provider] - () Additional Instructions: Please follow up with your primary care physician within one week after your discharge from the hospital. Please follow up with Dr. Jones (Surgery) within one to two weeks after your discharge from the hospital. Continue to advance diet as tolerating. You are currently receiving soft diet. Your home dose of Lasix has been increased, please take this medication as prescribed. Please resume your home medications as prescribed by your primary care physician. - Diet and Activity Activity: as per physical therapy Diet: advance to your usual diet Hospital course: Mr. Herring is a 61 year old male with PMH of bowel obstruction, s/p ventral hernia repair, hypertension, diabetes, COPD, Chronic respiratory failure on 3 L home oxygenation who was admitted for management of SBO secondary to adhesions. He was followed by surgery and underwent lysis of adhesions and small bowel resection performed by Dr. Jones. His post op course was complicated starting with difficult extubation and delay in initiation of oral feedings. Patient was briefly started on TPN for nutrition. Pt also required aggressive diuretic therapy post op for respiratory distress secondary to volume overload. He responded well to therapy. He was evaluated by physical therapy and ECF was recommended. He was able to gradually tolerate PO intake and at this time tolerating soft diet well. Patient is currently saturating well on nasal cannula. He is hemodynamically stable and will be discharged to an inpatient rehab facility. He is to follow up with Dr. Jones and PCP after his discharge. Patient demonstrates understanding of his diagnosis and agrees with the discharge care and plan. - Time Spent with Patient Total time spent providing and/or coordinating discharge services: Greater than 30 minutes - Constitutional Vitals: Temp Pulse Resp BP Pulse Ox 98.3 F 111 18 112/67 94 L 01/06/17 11:44 01/06/17 11:44 01/06/17 11:44 01/06/17 11:44 01/06/17 11:44 General appearance: Present: cooperative, A&O X 3, morbidly obese, pleasant, no acute distress, answers questions appropriately - Head Head exam: Present: atraumatic, normocephalic - Eye Eye exam: Present: PERRL, conjuntiva pink, sclera anicteric - Respiratory Respiratory exam: Present: decreased breath sounds. Absent: respiratory distress, wheezes - Cardiovascular Cardiovascular exam: Present: RRR, +S1, +S2. Absent: diastolic murmur, gallop, rubs, systolic murmur - GI/Abdominal GI/Abdominal exam: Present: distended (obese, dressing intact), normal bowel sounds, soft, no peritoneal signs. Absent: tenderness - Extremities Exam Extremities exam: Present: pedal edema, warm, radial pulses palpable and symetrical. Absent: calf tenderness - Neurological Exam Neurological exam: Present: alert, oriented X3 - Psychiatric Psychiatric exam: Present: normal affect, normal mood - VTE Documentation of Mechanical Device: Intermittent pneumatic compression device
--- NOTE | 2017-01-06 12:16 | Physician Discharge Referral ---
ExtendedCare Referral Info Transfer To: [facility] Provider in Charge after Transfer: PCP - Diagnosis (1) HTN (hypertension) Priority: Secondary Status: Chronic (2) DVT prophylaxis Priority: Secondary Status: Acute (3) COPD (chronic obstructive pulmonary disease) Priority: Secondary Status: Chronic (4) Morbid obesity Priority: Secondary Status: Chronic (5) Partial small bowel obstruction Priority: Primary Status: Acute - Transfer Medications Prescriptions: OxyCODONE/APAP 10/325 [Percocet 10/325 MG] 1 each PO Q6HR PRN #20 tablet PRN Reason: MODERATE PAIN 4-6 Home Medications: Albuterol Sulfate [Albuterol Inhaler] 2 puff IH Q4HR PRN 03/16/16 [History] Amlodipine Besylate 10 mg PO DAILY 03/16/16 [History] Azelastine 0.1% Nasal [place] [Astelin] 1 spray NS BID 03/16/16 [History] Budesonide/Formoterol 160/4.5 [Symbicort 160/4.5] 2 puff IH BIDR 03/16/16 [ History] Cetirizine HCl [Zyrtec] 10 mg PO DAILY 03/16/16 [History] ClonazePAM [Klonopin] 1 mg PO BID PRN 03/16/16 [History] Docusate [Colace] 300 mg PO BID PRN 03/16/16 [History] Ergocalciferol (VITAMIN D2) [Vitamin D] 400 unit PO DAILY 03/16/16 [History] Esomeprazole Magnesium [Nexium] 40 mg PO BID 03/16/16 [History] Fluticasone Propionate Nasal [Flonase] 2 spray NS DAILY 03/16/16 [History] Ketoconazole Shampoo [Nizoral Shampoo] 1 appl TP 3XW 03/16/16 [History] Polyethylene Glycol 3350 [MiraLAX] 17 gm PO DAILY 03/16/16 [History] Psyllium Seed (with Sugar) [Metamucil Powder] 1 each PO BID 03/16/16 [History] Roflumilast [Daliresp] 500 mcg PO DAILY 03/16/16 [History] Sodium Chloride [[place] Saline] 1 spray NS BID PRN 03/16/16 [History] Metoprolol [Lopressor] 12.5 mg PO BID #30 tablet 09/30/16 [Rx] Montelukast [Singulair] 10 mg PO HS #30 tablet 09/30/16 [Rx] Metoclopramide [Reglan] 10 mg PO ACHS 11/03/16 [History] Umeclidinium [place] [Incruse Ellipta] 62.5 mcg IH DAILY 11/03/16 [History] Aspirin [Lo-Dose Aspirin EC] 81 mg PO DAILY #30 tablet. 11/05/16 [Rx] Oxygen 3 l .ROUTE AD 11/20/16 [History] Ipratropium/Albuterol Neb [Duoneb] 3 ml IH [id number] 30 Days 12/10/16 [Rx] Losartan [Cozaar] 25 mg PO DAILY #30 tablet 12/10/16 [Rx] PredniSONE 10 mg PO DAILY #63 tablet 12/10/16 [Rx] CloNIDine Patch [Catapres-Tts] 0.1 mg TD QWEEK patch.tdwk 01/06/17 [Rx] Furosemide [Lasix] 40 mg PO BID #60 tablet 01/06/17 [Rx] GuaiFENesin ER [Mucinex] 600 mg PO BID PRN #0 tbbp.12hr 01/06/17 [Rx] Ipratropium/Albuterol Neb [Duoneb] 3 ml IH [id number] PRN inhsol 01/06/17 [Rx] OxyCODONE/APAP 10/325 [Percocet 10/325 MG] 1 each PO Q6HR PRN #20 tablet [Rx] Allergies/Adverse Reactions: Allergies morphine Allergy (Verified 12/21/16 10:35) Difficulty Breathing sulfamethoxazole [From Bactrim] Allergy (Verified 12/21/16 10:35) Hives trimethoprim [From Bactrim] Allergy (Verified 12/21/16 10:35) Hives codeine Adverse Reaction (Verified 12/21/16 10:35) Nausea - Respiratory Orders Oxygen / L per min Smoking Cessation: Smoking cessation has been advised. For more information, call the [place] Tobacco Quit Line at 3-988-NQPE-NOW. - Rehabiliation Orders Other: Please follow up with your primary care physician within one week after your discharge from the hospital. Please follow up with Dr. Jones (Surgery) within one to two weeks after your discharge from the hospital. Continue to advance diet as tolerating. You are currently receiving soft diet. Your home dose of Lasix has been increased, please take this medication as prescribed. Please resume your home medications as prescribed by your primary care physician. - Diet Orders Mechanical Soft (advance diet as tolerated) CERTIFICATION: I certify that the transfer of the above named patient to an Extended Care Facility is necessary for the continuing treatment of the diagnosis listed. The above information is true and accurate reflection of patient's current condition. Confidential - Redisclosure prohibited without a patient's written consent.
[2017-01-06] MEDS: clonazePAM 1 MG TABLET PO PRN (14:30)
== END 2017-01-06 15:10 | disposition other institution (70) | DRG 329 ==
LOC: 3ANU 00:35 → EMEROO 00:35 → SUATTDRO 03:13 → 3ANU 04:05 → SUATTDRO 14:40 → ICNU 12-25 16:11 → 2NNU 12-31 18:27
PROVIDERS: ADMIT Hospitalist; ATTEND Internal Medicine

== ENCOUNTER 2017-02-01 10:09 | Inpatient (IN) ==
--- NOTE | 2017-02-01 10:24 | Emergency Department Note ---
Disposition Clinical Impression: Lower gastrointestinal hemorrhage Disposition: Admitted As Inpatient Condition: Good Referrals: Bryce Jones DO [Primary Care Provider] - Forms: ED Satisfaction Letter GI Bleed HPI - General Chief complaint: ED GI Bleed Stated complaint: Rectal Bleeding Time Seen by Provider: 02/01/17 10:20 Source: patient, EMS Limitations: no limitations Nursing Notes Reviewed: Yes Vital Signs Reviewed: Yes - History of Present Illness Pt Subjective Complaint: gross bloody stools Onset (ago): day(s) (3) Consistency: intermittent Severity: moderate Improves with: nothing Worsens with: nothing Context: history of GI bleed Associated symptoms: Reports: abdominal pain, nausea Treatments Prior to Arrival: none - Related Data Home Medications Medication Instructions Recorded Confirmed Albuterol Sulfate [Albuterol 2 puff IH Q4HR PRN 03/16/16 12/21/16 Inhaler] Azelastine 0.1% Nasal [place] 1 spray NS BID 03/16/16 12/21/16 [Astelin] Budesonide/Formoterol 160/4.5 2 puff IH BIDR 03/16/16 12/21/16 [Symbicort 160/4.5] ClonazePAM [Klonopin] 1 mg PO BID PRN 03/16/16 12/21/16 Docusate [Colace] 300 mg PO BID PRN 03/16/16 12/21/16 Ergocalciferol (VITAMIN D2) 400 unit PO DAILY 03/16/16 12/21/16 [Vitamin D] Esomeprazole Magnesium [Nexium] 40 mg PO BID 03/16/16 12/21/16 Fluticasone Propionate Nasal 2 spray NS DAILY 03/16/16 12/21/16 [Flonase] Ketoconazole Shampoo [Nizoral 1 appl TP 3XW 03/16/16 12/21/16 Shampoo] Polyethylene Glycol 3350 [MiraLAX] 17 gm PO DAILY 03/16/16 12/21/16 Psyllium Seed (with Sugar) 1 each PO BID 03/16/16 12/21/16 [Metamucil Powder] Roflumilast [Daliresp] 500 mcg PO DAILY 03/16/16 12/21/16 Sodium Chloride [[place] Saline] 1 spray NS BID PRN 03/16/16 12/21/16 Metoclopramide [Reglan] 10 mg PO ACHS 11/03/16 12/21/16 Umeclidinium [place] [Incruse 62.5 mcg IH DAILY 11/03/16 12/21/16 Ellipta] Oxygen 3 l .ROUTE AD 11/20/16 12/21/16 Previous Rx's Medication Instructions Recorded Montelukast [Singulair] 10 mg PO HS #30 tablet 09/30/16 Losartan [Cozaar] 25 mg PO DAILY #30 tablet 12/10/16 Furosemide [Lasix] 40 mg PO BID #60 tablet 01/06/17 GuaiFENesin ER [Mucinex] 600 mg PO BID PRN #0 tbbp.12hr 01/06/17 OxyCODONE/APAP 10/325 [Percocet 1 each PO Q6HR PRN #20 tablet 01/06/17 10/325 MG] Cetirizine HCl [Zyrtec] 10 mg PO DAILY PRN #0 01/27/17 Magnesium Oxide [Mag-Ox] 400 mg PO DAILY #15 tablet 01/27/17 Metoprolol [Lopressor] 25 mg PO BID #60 tablet 01/27/17 Ondansetron ODT [Zofran ODT] 4 mg SL Q4HR PRN #30 tab.rapdis 01/27/17 Potassium Chloride 20 meq PO DAILY #15 tab.er.prt 01/27/17 Allergies Allergy/AdvReac Type Severity Reaction Status Date / Time morphine Allergy Difficulty Verified 02/01/17 10:17 Breathing sulfamethoxazole Allergy Hives Verified 02/01/17 10:17 [From Bactrim] trimethoprim [From Bactrim] Allergy Hives Verified 02/01/17 10:17 codeine AdvReac Nausea Verified 02/01/17 10:17 All systems ED: reviewed and negative except as stated. Constitutional: Denies: fever, chills Cardiovascular: Denies: chest pain Respiratory: Denies: cough, dyspnea, wheezes Gastrointestinal: Reports: abdominal pain, nausea, hematochezia Past Medical History - Past Medical History Source: patient, old records reviewed, nursing notes reviewed Medical history: Reports: cardiomyopathy, COPD, diabetes, GERD, hypertension, other Surgical history: Reports: cataract, herniorrhaphy, other Psychiatric history: Reports: anxiety, depression - Social History Smoking Status: Former smoker Smokeless Tobacco Status: No Alcohol use: Reports: rarely Drug use: Reports: none Physical Exam - General Limitations: no limitations General appearance: alert, in no apparent distress - Head Head exam: atraumatic, normocephalic, normal inspection - Eye Eye exam: Present: normal appearance, PERRL, EOMI - ENT ENT exam: normal exam, normal oropharynx, mucous membranes moist - Neck Neck exam: Present: normal inspection, full ROM, trachea midline - Chest Chest inspection: Present: normal inspection, symmetric chest wall rise - Respiratory Respiratory exam: Present: normal lung sounds bilaterally - Cardiovascular Cardiovascular exam: Present: regular rate, normal rhythm, normal heart sounds - Abdominal Exam Abdominal exam: Present: soft, distention, other (Patient has a wound VAC anterior abdomen). Absent: guarding, rebound Abdominal tenderness: Present: diffuse, mild - Rectal Exam Rectal exam: Present: bloody stool Course Vital Signs Temperature 98.2 F 02/01/17 10:12 Pulse Rate 92 02/01/17 10:12 Respiratory Rate 18 02/01/17 10:12 Blood Pressure 149/90 02/01/17 10:12 O2 Sat by Pulse Oximetry 97 02/01/17 10:12 Temperature 98.2 F 02/01/17 10:12 Pulse Rate 93 02/01/17 13:00 Respiratory Rate 18 02/01/17 13:00 Blood Pressure 156/91 02/01/17 13:00 O2 Sat by Pulse Oximetry 98 02/01/17 13:00 Oxygen Delivery Oxygen Delivery Nasal Cannula GI Bleed - Lab Data Result diagrams: 02/01/17 10:33 02/01/17 10:33 Lab Results 02/01/17 02/01/17 02/01/17 Range/Units 10:33 10:33 10:33 WBC 12.4 H (4.3-11.1) K/mcL RBC 3.27 L (4.19-5.50) M/mcL Hgb 8.8 L (12.9-16.9) g/dL Hct 28.2 L (37.5-50.1) % MCV 86.2 (83.0-100.0) fL MCH 26.9 L (28.0-33.3) pg MCHC 31.2 L (31.6-35.5) g/dL RDW 16.2 H (11.5-14.5) % Plt Count 457 H (140-400) K/mcL MPV 8.5 L (9.4-12.4) fL Immature Gran % 0.8 (0-4) % Seg Neutrophils % 72.2 % Lymphocytes % 14.3 % Monocytes % 8.7 % Eosinophils % 3.5 % Basophils % 0.5 % Neutrophils # 9.0 H (1.6-8.9) K/mcL Lymphocytes # 1.8 (0.6-4.6) K/mcL Monocytes # 1.1 (0.0-1.3) K/mcL Eosinophils # 0.4 (0.0-0.6) K/mcL Basophils # 0.1 (0.0-0.2) K/mcL PT 12.6 H (9.4-12.1) Seconds INR 1.2 APTT 35.6 (26.0-36.0) Seconds Sodium 135 L (136-145) mEq/L Potassium 4.2 (3.5-4.5) mEq/L Chloride 106 (98-109) mEq/L Carbon Dioxide 21 (19-29) mEq/L BUN 12 (8-26) mg/dL Creatinine 0.88 (0.72-1.25) mg/dL Est GFR ( Amer) > 60 (> 60) Est GFR (Non-Af Amer) > 60 (> 60) BUN/Creatinine Ratio 14 (6-26) Glucose 104 H (70-99) mg/dL Calculated Osmolality 280 (280-300) Lactic Acid (0.5-2.2) mmol/L Calcium 9.0 (8.6-10.8) mg/dL Blood Type Antibody Screen 02/01/17 02/01/17 Range/Units 10:33 12:59 WBC (4.3-11.1) K/mcL RBC (4.19-5.50) M/mcL Hgb (12.9-16.9) g/dL Hct (37.5-50.1) % MCV (83.0-100.0) fL MCH (28.0-33.3) pg MCHC (31.6-35.5) g/dL RDW (11.5-14.5) % Plt Count (140-400) K/mcL MPV (9.4-12.4) fL Immature Gran % (0-4) % Seg Neutrophils % % Lymphocytes % % Monocytes % % Eosinophils % % Basophils % % Neutrophils # (1.6-8.9) K/mcL Lymphocytes # (0.6-4.6) K/mcL Monocytes # (0.0-1.3) K/mcL Eosinophils # (0.0-0.6) K/mcL Basophils # (0.0-0.2) K/mcL PT (9.4-12.1) Seconds INR APTT (26.0-36.0) Seconds Sodium (136-145) mEq/L Potassium (3.5-4.5) mEq/L Chloride (98-109) mEq/L Carbon Dioxide (19-29) mEq/L BUN (8-26) mg/dL Creatinine (0.72-1.25) mg/dL Est GFR ( Amer) (> 60) Est GFR (Non-Af Amer) (> 60) BUN/Creatinine Ratio (6-26) Glucose (70-99) mg/dL Calculated Osmolality (280-300) Lactic Acid 0.6 (0.5-2.2) mmol/L Calcium (8.6-10.8) mg/dL Blood Type O POSITIVE Antibody Screen NEGATIVE Critical Care Time Critical Care Time: Yes Total Critical Care Time: 40 Attestation: Critical care performed: Time is exclusive of separately billable procedures. Time includes: direct patient care, patient reassessment, coordination of patient care, interpretation of data (laboratory data, radiology data, and respiratory data), review of patient's medical records, medical consultation and documentation of patient care. Procedures included in critical care time: Procedures excluded from critical care time:
[2017-02-01 10:41] LABS: Basophils # 0.1 K/mcL (0.0-0.2); Basophils % 0.5 %; Eosinophils # 0.4 K/mcL (0.0-0.6); Eosinophils % 3.5 %; Hematocrit 28.2 % (37.5-50.1); Hemoglobin 8.8 g/dL (12.9-16.9); Immature Granulocytes % 0.8 % (0-4); Lymphocytes # 1.8 K/mcL (0.6-4.6); Lymphocytes % 14.3 %; Mean Corpuscular HGB Conc 31.2 g/dL (31.6-35.5); Mean Corpuscular Hemoglobin 26.9 pg (28.0-33.3); Mean Corpuscular Volume 86.2 fL (83.0-100.0); Mean Platelet Volume 8.5 fL (9.4-12.4); Monocytes # 1.1 K/mcL (0.0-1.3); Monocytes % 8.7 %; Platelet Count 457 K/mcL (140-400); Red Blood Count 3.27 M/mcL (4.19-5.50); Red Cell Distribution Width 16.2 % (11.5-14.5); Segmented Neutrophils % 72.2 %
[2017-02-01 10:47] LABS: INR 1.2; Prothrombin Time 12.6 Seconds (9.4-12.1)
[2017-02-01 10:50] LABS: Activated Partial Thrombo Time 35.6 Seconds (26.0-36.0)
[2017-02-01 10:51] LABS: BUN/Creatinine Ratio 14 (6-26); Blood Urea Nitrogen 12 mg/dL (8-26); Carbon Dioxide 21 mEq/L (19-29); Chloride 106 mEq/L (98-109); Glucose 104 mg/dL (70-99); Osmolality,Calculated 280 (280-300); Potassium 4.2 mEq/L (3.5-4.5); Sodium 135 mEq/L (136-145); eGFR For African Americans > 60 (> 60); eGFR For Non-African Americans > 60 (> 60)
[2017-02-01] MEDS ORDERED: Ondansetron 4 MG/2 ML VIAL IVP ONE (11:06)
[2017-02-01] MEDS: 0.9 % Sodium Chloride 1,000 ML IVC SCH ×3 (11:16→20:17)
[2017-02-01] MEDS ORDERED: Ondansetron 4 MG/2 ML VIAL IV ONE ×2 (11:42→14:32)
[2017-02-01] MEDS ORDERED: *HR* HYDROmorphone (PF) 1 MG/ML SYRINGE IV ONE ×2 (11:42→14:32)
--- NOTE | 2017-02-01 16:59 | General Surg History&Physical ---
Date of Encounter: 02/01/17 Time of Encounter: 15:20 Assessment and Plan (1) GI bleed Current Visit: Yes Status: Acute The assessment and plan as outlined above was discussed with the patient and/or family members who expressed understanding and agreement. All questions were answered. The patient has gastrointestinal bleeding. The level of bleeding is unclear. This has not resulted in anemia. He is currently undergoing tagged red blood cell bleeding scan to try and identify the source of the bleeding. 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 Clinically this acts more like a diverticular bleed Qualifiers: GI bleed type/associated pathology: unspecified gastrointestinal hemorrhage type Qualified Code(s): K92.2 - Gastrointestinal hemorrhage, unspecified (2) COPD (chronic obstructive pulmonary disease) Current Visit: Yes Status: Chronic The assessment and plan as outlined above was discussed with the patient and/or family members who expressed understanding and agreement. All questions were answered. 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 This has been steroid-dependent during his recent hospitalization. Qualifiers: COPD type: unspecified COPD Qualified Code(s): J44.9 - Chronic obstructive pulmonary disease, unspecified (3) Morbid obesity with BMI of 40.0-44.9, adult Current Visit: Yes Status: Chronic The assessment and plan as outlined above was discussed with the patient and/or family members who expressed understanding and agreement. All questions were answered. Morbid obesity compounded by obstructive sleep apnea and end-stage COPD History of Present Illness Chief complaint: Rectal bleeding HPI: Mr. Herring is a 61 year old male Well known to our service. Several weeks ago he was in the hospital for recurrent small bowel obstruction. He underwent exploratory laparotomy and small bowel resection. The patient has end-stage COPD on continuous oxygen. He had a very digna postoperative course including over week in the intensive care unit with a significant amount of time on the ventilator. We are finally able to get him off the ventilator but this required very high doses of steroids. After a prolonged course in the hospital he was sent to rehabilitation. He had a wound infection that was treated successfully with a wound VAC. I saw him several times at rehabilitation. He went home from rehabilitation and developed several days of rectal bleeding. He stated that he had several episodes of bright red blood per rectum that was small in volume but one day where he had clots. He presented to the emergency room with more rectal bleeding. A CAT scan of the abdomen was ordered. I personally reviewed the CAT scan of the abdomen with the radiologist. There appears to be an area of inflammation around the anastomosis. There is disagreement among the radiologist as to the etiology and significance of this inflammation. One possibility is that this may be the source of bleeding. Because of this differential diagnosis between perimesenteric artery and inferior mesenteric artery sources of bleeding I will obtain a tagged red blood cell gastrointestinal bleeding scan to try and identify the source between large bowel and small bowel. We will keep him in the hospital until the bleeding subsides. He may require colonoscopy. He has not developed any anemia from this bleeding episode. His H&H is at baseline. Past Med Surg Social Fam HX - Past Medical History Medical history: cardiomyopathy, COPD, diabetes, GERD, hypertension, other Psychiatric history: anxiety, depression - Past Surgical History Surgical History: cataract, herniorrhaphy, other - Social History Smoking Status: Former smoker Smokeless Tobacco Status: No Alcohol use: rarely Drug use: none - Family History Father Family Member Ethnicity: Non- Living Status: Hx Family Cardiac Disorders: No Hx Family Respiratory Disorders: No Hx Family Cancer: Yes (pancreatic) Hx Family GI Disorders: No Hx Family Endocrine Disorder: Yes Hx Family Neuromuscular Disorders: No Hx Family Neurologic Disorders: No Hx Family HEENT Disorders: No Hx Family Autoimmune Disorders: No Mother Adopted: No Family Member Ethnicity: Non- Living Status: Hx Family Cardiac Disorders: Yes Hx Family Respiratory Disorders: Yes Hx Family Cancer: Yes (lung cancer) Hx Family GI Disorders: No Hx Family Endocrine Disorder: No Hx Family Neuromuscular Disorders: No Hx Family Neurologic Disorders: No Hx Family HEENT Disorders: No Hx Family Autoimmune Disorders: No Sister Living Status: Hx Family Cardiac Disorders: Yes Hx Family Respiratory Disorders: Yes Hx Family Cancer: No Hx Family GI Disorders: No Hx Family Endocrine Disorder: No Hx Family Neuromuscular Disorders: No Hx Family Neurologic Disorders: No Hx Family HEENT Disorders: No Hx Family Autoimmune Disorders: No Medications and Allergies Albuterol Sulfate [Albuterol Inhaler] 2 puff IH Q4HR PRN 03/16/16 [History] Azelastine 0.1% Nasal [place] [Astelin] 1 spray NS BID 03/16/16 [History] Budesonide/Formoterol 160/4.5 [Symbicort 160/4.5] 2 puff IH BIDR 03/16/16 [ History] ClonazePAM [Klonopin] 1 mg PO BID PRN 03/16/16 [History] Docusate [Colace] 300 mg PO BID PRN 03/16/16 [History] Ergocalciferol (VITAMIN D2) [Vitamin D] 400 unit PO DAILY 03/16/16 [History] Esomeprazole Magnesium [Nexium] 40 mg PO BID 03/16/16 [History] Fluticasone Propionate Nasal [Flonase] 2 spray NS DAILY 03/16/16 [History] Ketoconazole Shampoo [Nizoral Shampoo] 1 appl TP 3XW 03/16/16 [History] Polyethylene Glycol 3350 [MiraLAX] 17 gm PO DAILY 03/16/16 [History] Psyllium Seed (with Sugar) [Metamucil Powder] 1 each PO BID 03/16/16 [History] Roflumilast [Daliresp] 500 mcg PO DAILY 03/16/16 [History] Sodium Chloride [[place] Saline] 1 spray NS BID PRN 03/16/16 [History] Montelukast [Singulair] 10 mg PO HS #30 tablet 09/30/16 [Rx] Metoclopramide [Reglan] 10 mg PO ACHS 11/03/16 [History] Umeclidinium [place] [Incruse Ellipta] 1 puff IH DAILY 11/03/16 [History] Oxygen 3 l .ROUTE AD 11/20/16 [History] Losartan [Cozaar] 25 mg PO DAILY #30 tablet 12/10/16 [Rx] Furosemide [Lasix] 40 mg PO BID #60 tablet 01/06/17 [Rx] GuaiFENesin ER [Mucinex] 600 mg PO BID PRN #0 tbbp.12hr 01/06/17 [Rx] Cetirizine HCl [Zyrtec] 10 mg PO DAILY PRN #0 01/27/17 [Rx] Magnesium Oxide [Mag-Ox] 400 mg PO DAILY #15 tablet 01/27/17 [Rx] Metoprolol [Lopressor] 25 mg PO BID #60 tablet 01/27/17 [Rx] Ondansetron ODT [Zofran ODT] 4 mg SL Q4HR PRN #30 tab.rapdis 01/27/17 [Rx] Potassium Chloride 20 meq PO DAILY #15 tab.er.prt 01/27/17 [Rx] OxyCODONE/APAP 10/325 [Percocet 10/325 MG] 1 tab PO Q6HR PRN 02/01/17 [History] Allergies morphine Allergy (Verified 02/01/17 10:17) Difficulty Breathing sulfamethoxazole [From Bactrim] Allergy (Verified 02/01/17 10:17) Hives trimethoprim [From Bactrim] Allergy (Verified 02/01/17 10:17) Hives codeine Adverse Reaction (Verified 02/01/17 10:17) Nausea Review of Systems All systems PM: A 10-system review of systems was performed and is negative for pertinent findings except as documented above in the HPI. General Surgery Exam Initial Vital Signs Temp Pulse Resp BP Pulse Ox 98.2 F 92 18 149/90 97 02/01/17 10:12 02/01/17 10:12 02/01/17 10:12 02/01/17 10:12 02/01/17 10:12 - General physical appearance well developed, no distress, chronically ill, obese - Neck other (Short thick neck) - Respiratory other (Decreased bilateral breath sounds with mild wheezing) - Cardiovascular Cardiovascular exam: Present: RRR, no murmurs/rubs/gallops - Abdomen Abdomen general surgery: Present: bowel sounds present, soft, non tender (Wound VAC is in place. There is no erythema. The abdominal examination is absolutely negative) Results - Labs 02/01/17 10:33 02/01/17 10:33 Abnormal lab results WBC 12.4 K/mcL (4.3-11.1) H 02/01/17 10:33 RBC 3.27 M/mcL (4.19-5.50) L 02/01/17 10:33 Hgb 8.8 g/dL (12.9-16.9) L 02/01/17 10:33 Hct 28.2 % (37.5-50.1) L 02/01/17 10:33 MCH 26.9 pg (28.0-33.3) L 02/01/17 10:33 MCHC 31.2 g/dL (31.6-35.5) L 02/01/17 10:33 RDW 16.2 % (11.5-14.5) H 02/01/17 10:33 Plt Count 457 K/mcL (140-400) H 02/01/17 10:33 MPV 8.5 fL (9.4-12.4) L 02/01/17 10:33 Neutrophils # 9.0 K/mcL (1.6-8.9) H 02/01/17 10:33 PT 12.6 Seconds (9.4-12.1) H 02/01/17 10:33 Sodium 135 mEq/L (136-145) L 02/01/17 10:33 Glucose 104 mg/dL (70-99) H 02/01/17 10:33 All other labs normal.
[2017-02-01] MEDS ORDERED: Naloxone 0.4 MG/ML INJ IVP PRN (17:04)
[2017-02-01] MEDS ORDERED: Ipratropium/Albuterol Neb 3 ML IH PRN (20:02)
[2017-02-01 20:06] LABS: Hematocrit 28.2 % (37.5-50.1); Hemoglobin 8.8 g/dL (12.9-16.9)
--- NOTE | 2017-02-01 20:40 | Internal Medicine Consult Note ---
Date of Encounter: 02/02/17 Time of Encounter: 17:00 - Assessment and Plan (1) Lower gastrointestinal hemorrhage Current Visit: Yes Status: Acute Assessment and plan: Management per primary team. Tagged RBC scan ordered. hct/hb ordered Q6hrs x 3. Transfuse PRN (already typed and screened). (2) Anemia Current Visit: No Status: Chronic Assessment and plan: Stable anemia despite multiple bloody bowel movements. Baseline hb around 7-9. Today 8.8 x 2. Also has history of iron deficiency anemia. Transfuse if Hb drops below 8. Hct/hb trending ordered as mentioned. Qualifiers: Anemia type: iron deficiency Iron deficiency anemia type: chronic blood loss Qualified Code(s): D50.0 - Iron deficiency anemia secondary to blood loss (chronic) (3) HCAP (healthcare-associated pneumonia) Current Visit: Yes Status: Acute Assessment and plan: Urine streptococcal and legionella antigens ordered. Vancomycin, Levaquin and Zosyn ordered. MRSA screen pending; if negative, ok to cancel vancomycin. (4) COPD (chronic obstructive pulmonary disease) Current Visit: Yes Status: Chronic Assessment and plan: Exam concerning more for pneumonia. Is steroid dependent, however. At this time , in addition to duonebs and home meds, will order Solumederol 60 mg IV q12 hours and may deescalate treatment if patient's respiratory status improves. Qualifiers: COPD type: unspecified COPD Qualified Code(s): J44.9 - Chronic obstructive pulmonary disease, unspecified (5) History of bowel resection Current Visit: Yes Status: Acute Assessment and plan: CT results reviewed by Dr. Jones - not likely abscess. Management per primary team and wound care consulted for wound vac care. Internal Medicine - CN: HPI - Data of Consult Patient: known to practice within the last 3 years Consult date: 02/01/17 Requesting Physician: Jose Antonio Jones MD - Consult Narrative Reason for consult: medical management History of present illness: Mr. Herring is a 61 year old male with PMH morbid obesity, COPD, chronic respiratory failure with home oxygen dependence, HTN, recurrent SBO s/p exploratory laparotomy and small bowel resection who presents with bloody bowel movements. Please see Dr. Jones's HPI for complete information regarding patient' s recent complicated hospital course. Patient developed bright red blood per rectum with blood clots starting on Tuesday. Had clear yellow colored liquid bowel movement on Tuesday (2 days ago) which preceded the onset of bleeding. Patient continued to have bloody bowel movements several times per day and thus he decided to go to the ED. He has persistent abdominal pain and nausea which is unchanged per previous visit. Has a cough productive of yellow colored sputum. Shortness of breath has become progressively worse. Denies any chest pain, emesis or melanotic stools. Has chills, but denies any fevers. Code status discussed and patient wishes to be full code at this time. Past Med Surg Social Fam HX - Past Medical History Medical history: cardiomyopathy, COPD, diabetes, GERD, hypertension, other Psychiatric history: anxiety, depression - Past Surgical History Surgical History: cataract, herniorrhaphy, other - Social History Smoking Status: Former smoker Smokeless Tobacco Status: No Alcohol use: rarely Drug use: none - Family History Father Family Member Ethnicity: Non- Living Status: Hx Family Cardiac Disorders: No Hx Family Respiratory Disorders: No Hx Family Cancer: Yes (pancreatic) Hx Family GI Disorders: No Hx Family Endocrine Disorder: Yes Hx Family Neuromuscular Disorders: No Hx Family Neurologic Disorders: No Hx Family HEENT Disorders: No Hx Family Autoimmune Disorders: No Mother Adopted: No Family Member Ethnicity: Non- Living Status: Hx Family Cardiac Disorders: Yes Hx Family Respiratory Disorders: Yes Hx Family Cancer: Yes (lung cancer) Hx Family GI Disorders: No Hx Family Endocrine Disorder: No Hx Family Neuromuscular Disorders: No Hx Family Neurologic Disorders: No Hx Family HEENT Disorders: No Hx Family Autoimmune Disorders: No Sister History Unknown: Yes Living Status: Hx Family Cardiac Disorders: Yes Hx Family Respiratory Disorders: Yes Hx Family Cancer: No Hx Family GI Disorders: No Hx Family Endocrine Disorder: No Hx Family Neuromuscular Disorders: No Hx Family Neurologic Disorders: No Hx Family HEENT Disorders: No Hx Family Autoimmune Disorders: No - Cardiovascular Cardiovascular ROS IM: dyspnea, no chest pain - Respiratory Respiratory: as per HPI, cough, excessive phlegm production - Gastrointestinal Gastrointestinal: as per HPI, abdominal pain, change in bowel habits, nausea, no hematemesis, no melena - Genitourinary Additional comments: has urinary hesitation - Musculoskeletal Musculoskeletal ROS IM: no arthralgias Internal Medicine - CN: Meds Albuterol Sulfate [Albuterol Inhaler] 2 puff IH Q4HR PRN 03/16/16 [History] Azelastine 0.1% Nasal [place] [Astelin] 1 spray NS BID 03/16/16 [History] Budesonide/Formoterol 160/4.5 [Symbicort 160/4.5] 2 puff IH BIDR 03/16/16 [ History] ClonazePAM [Klonopin] 1 mg PO BID PRN 03/16/16 [History] Docusate [Colace] 300 mg PO BID PRN 03/16/16 [History] Ergocalciferol (VITAMIN D2) [Vitamin D] 400 unit PO DAILY 03/16/16 [History] Esomeprazole Magnesium [Nexium] 40 mg PO BID 03/16/16 [History] Fluticasone Propionate Nasal [Flonase] 2 spray NS DAILY 03/16/16 [History] Ketoconazole Shampoo [Nizoral Shampoo] 1 appl TP 3XW 03/16/16 [History] Polyethylene Glycol 3350 [MiraLAX] 17 gm PO DAILY 03/16/16 [History] Psyllium Seed (with Sugar) [Metamucil Powder] 1 each PO BID 03/16/16 [History] Roflumilast [Daliresp] 500 mcg PO DAILY 03/16/16 [History] Sodium Chloride [[place] Saline] 1 spray NS BID PRN 03/16/16 [History] Montelukast [Singulair] 10 mg PO HS #30 tablet 09/30/16 [Rx] Metoclopramide [Reglan] 10 mg PO ACHS 11/03/16 [History] Umeclidinium [place] [Incruse Ellipta] 1 puff IH DAILY 11/03/16 [History] Oxygen 3 l .ROUTE AD 11/20/16 [History] Losartan [Cozaar] 25 mg PO DAILY #30 tablet 12/10/16 [Rx] Furosemide [Lasix] 40 mg PO BID #60 tablet 01/06/17 [Rx] GuaiFENesin ER [Mucinex] 600 mg PO BID PRN #0 tbbp.12hr 01/06/17 [Rx] Cetirizine HCl [Zyrtec] 10 mg PO DAILY PRN #0 01/27/17 [Rx] Magnesium Oxide [Mag-Ox] 400 mg PO DAILY #15 tablet 01/27/17 [Rx] Metoprolol [Lopressor] 25 mg PO BID #60 tablet 01/27/17 [Rx] Ondansetron ODT [Zofran ODT] 4 mg SL Q4HR PRN #30 tab.rapdis 01/27/17 [Rx] Potassium Chloride 20 meq PO DAILY #15 tab.er.prt 01/27/17 [Rx] OxyCODONE/APAP 10/325 [Percocet 10/325 MG] 1 tab PO Q6HR PRN 02/01/17 [History] Allergies morphine Allergy (Verified 02/01/17 10:17) Difficulty Breathing sulfamethoxazole [From Bactrim] Allergy (Verified 02/01/17 10:17) Hives trimethoprim [From Bactrim] Allergy (Verified 02/01/17 10:17) Hives codeine Adverse Reaction (Verified 02/01/17 10:17) Nausea Internal Medicine - CN: Exam - Constitutional Vitals: Temp Pulse Resp BP Pulse Ox 97.8 F 99 14 146/84 97 02/01/17 19:55 02/01/17 19:55 02/01/17 19:55 02/01/17 19:55 02/01/17 19:55 General appearance IM: Present: A&O X 3, obese Exam: moderate respiratory distress with position changes - Head Head exam: Present: atraumatic - Eye Eye exam: Present: normal appearance - Respiratory Respiratory exam: Present: rales, tachypnea - Cardiovascular Cardiovascular exam IM: Present: RRR, +S1, +S2 - GI/Abdominal GI/Abdominal exam IM: Present: normal bowel sounds, soft, tenderness ( surrounding wound vac site, wound vac dressing clean and intact). Absent: rigid Additional comments: wound vac site clean/intact - Rectal Rectal exam: Present: deferred - Extremities Exam Extremities exam IM: Present: pedal edema. Absent: calf tenderness - Psychiatric Psychiatric exam: Present: normal affect, normal mood Internal Medicine - CN: Reslt - Labs CBC & Chem 7: 02/01/17 19:58 02/01/17 10:33 Labs: Short CBC 02/01/17 Range/Units 19:58 Hgb 8.8 L (12.9-16.9) g/dL Hct 28.2 L (37.5-50.1) % - ABG Interpretation ABG results: PT/INR, D-dimer PT 12.6 Seconds (9.4-12.1) H 02/01/17 10:33 Consult Discharge Plan - Plan Referrals: Bryce Jones DO [Primary Care Provider] -
[2017-02-01] MEDS ORDERED: Vancomycin 500 MG in D5% in Water (Mini-Bag+) 100 ML IVPB SCH (21:00)
[2017-02-01] MEDS: Budesonide/Formoterol 160/4.5 MDI IH SCH (21:13)
[2017-02-01] MEDS: Ipratropium/Albuterol Neb 3 ML IH SCH ×2 (21:13→21:21)
[2017-02-01] MEDS: Levofloxacin 750 MG/150 ML 750 MG/150 ML BAG IVPB SCH (21:52)
[2017-02-01] MEDS: Ondansetron 4 MG/2 ML VIAL IVP PRN (21:52)
[2017-02-01] MEDS: Azelastine 0.1% Nasal Spray 30 ML BOTTLE NS SCH (21:53)
[2017-02-01] MEDS: *HR* HYDROmorphone (PF) 1 MG/ML SYRINGE IVP PRN (22:08)
[2017-02-01] MEDS: Vancomycin 2,000 MG in D5% in Water 500 ML IVPB SCH (23:45)
[2017-02-02 01:39] LABS: Hematocrit 25.7 % (37.5-50.1)
[2017-02-02 01:40] LABS: Basophils # 0.1 K/mcL (0.0-0.2); Basophils % 0.6 %; Eosinophils # 0.5 K/mcL (0.0-0.6); Eosinophils % 4.7 %; Hematocrit 26.4 % (37.5-50.1); Hemoglobin 8.1 g/dL (12.9-16.9); Immature Granulocytes % 1.1 % (0-4); Lymphocytes # 1.8 K/mcL (0.6-4.6); Lymphocytes % 18.1 %; Mean Corpuscular HGB Conc 30.7 g/dL (31.6-35.5); Mean Corpuscular Hemoglobin 27.1 pg (28.0-33.3); Mean Corpuscular Volume 88.3 fL (83.0-100.0); Mean Platelet Volume 8.6 fL (9.4-12.4); Monocytes # 0.9 K/mcL (0.0-1.3); Monocytes % 8.6 %; Neutrophils # 6.6 K/mcL (1.6-8.9); Platelet Count 350 K/mcL (140-400); Red Blood Count 2.99 M/mcL (4.19-5.50); Red Cell Distribution Width 16.4 % (11.5-14.5); Segmented Neutrophils % 66.9 %
[2017-02-02 01:47] LABS: INR 1.2; Prothrombin Time 13.3 Seconds (9.4-12.1)
[2017-02-02 01:49] LABS: Activated Partial Thrombo Time 33.8 Seconds (26.0-36.0)
[2017-02-02 01:54] LABS: Alanine Aminotransferase 10 Units/L (0-55); Albumin 2.2 g/dL (3.5-5.0); Albumin/Globulin Ratio 0.4 (1.1-2.2); Alkaline Phosphatase 65 Units/L (38-126); Aspartate Amino Transferase 13 Units/L (5-34); BUN/Creatinine Ratio 10 (6-26); Bilirubin,Total 0.1 mg/dL (0.2-1.2); Blood Urea Nitrogen 10 mg/dL (8-26); Calcium 8.5 mg/dL (8.6-10.8); Carbon Dioxide 21 mEq/L (19-29); Chloride 106 mEq/L (98-109); Globulin 4.9 g/dL (2.4-3.5); Glucose 107 mg/dL (70-99); Osmolality,Calculated 280 (280-300); Potassium 3.8 mEq/L (3.5-4.5); Sodium 135 mEq/L (136-145); Total Protein 7.1 g/dL (6.0-8.3); eGFR For African Americans > 60 (> 60); eGFR For Non-African Americans > 60 (> 60)
[2017-02-02] MEDS: Piperacillin/Tazobactam 3.375 GM in D5% in Water (Mini-Bag+) 100 ML IVPB SCH ×4 (02:11→23:49)
[2017-02-02] MEDS: Metoclopramide 10 MG/2 ML VIAL IVP PRN (02:15)
[2017-02-02] MEDS: *HR* HYDROmorphone (PF) 1 MG/ML SYRINGE IVP PRN ×5 (02:15→20:18)
[2017-02-02] MEDS: Ipratropium/Albuterol Neb 3 ML IH SCH ×4 (03:58→21:23)
[2017-02-02 05:39] LABS: Hematocrit 26.1 % (37.5-50.1); Hemoglobin 8.1 g/dL (12.9-16.9)
[2017-02-02] MEDS: methylPREDNISolone 125 MG/2 ML VIAL IVP SCH ×2 (05:43→16:10)
--- NOTE | 2017-02-02 07:14 | General Surgery Progress Note ---
Date of Encounter: 02/02/17 Time of Encounter: 07:00 - Assessment and Plan (1) GI bleed Current Visit: Yes Status: Acute No evidence of gastrointestinal bleed on bleeding scan. We will continue to follow his hemoglobin and hematocrit as well as follow him clinically. Qualifiers: GI bleed type/associated pathology: unspecified gastrointestinal hemorrhage type Qualified Code(s): K92.2 - Gastrointestinal hemorrhage, unspecified (2) COPD (chronic obstructive pulmonary disease) Current Visit: Yes Status: Chronic Severe COPD. He is stable on CPAP Qualifiers: COPD type: unspecified COPD Qualified Code(s): J44.9 - Chronic obstructive pulmonary disease, unspecified (3) Morbid obesity with BMI of 40.0-44.9, adult Current Visit: Yes Status: Chronic Subjective Patient reports: voiding w/o difficulty Narrative: The patient is complaining of mild abdominal pain. He has had no further rectal bleeding. Bleeding scan was negative for any gastrointestinal bleeding. He had colonoscopy 2 months ago and I do not think that this needs to be repeated. On physical examination his abdomen is completely benign. At this point I would take no other action and we will follow him clinically. Objective Vital Signs - Last 8 Hours Temp Pulse Resp BP Pulse Ox 02/02/17 06:59 97.6 F 100 18 143/91 96 02/02/17 04:00 19 98 02/02/17 03:58 98.4 F 89 14 128/75 98 02/02/17 00:07 98.6 F 101 14 131/81 100 02/01/17 23:40 20 98 Intake and Output 02/01/17 02/01/17 02/02/17 15:59 23:59 07:59 Intake Total 150 / 150 600 / 600 Output Total 0 / 0 550 / 550 Balance 150 / 150 50 / 50 Intake: IV Fluids 150 / 150 600 / 600 Levaquin 750mg/150 mL 750 150 / 150 mg In 150 ml @ 100 mls/ hr IVPB Q24H ANA Rx#: [id number] Zosyn 3.375 GM In 100 / 100 Dextrose 5% (Minibag+) 100 ML 100 ML @ 25 mls/hr IVPB Q8HR ANA Rx#: [id number] Vancocin 2,000 MG In 500 / 500 Dextrose 5% 500 ML @ 250 mls/hr IVPB Q12H ANA Rx#: [id number] Oral 0 / 0 0 / 0 Output: Urine 0 / 0 550 / 550 Other: # Bowel Movements 0 Blood Glucose* 98 - General physical appearance well developed, well nourished, obese - Respiratory other (Decreased breath sounds. Patient is examined on CPAP.) - Cardiovascular Cardiovascular exam: Present: RRR, no murmurs/rubs/gallops - Abdomen Abdomen: Present: bowel sounds present, soft, non tender, distended - Incision Incision: Present: open (Wound VAC in place in the central abdominal incision) - Neurologic normal coordination, normal sensation - Psychiatric oriented to time, oriented to person, oriented to place, speech is normal, memory intact - Labs 02/02/17 05:18 02/02/17 01:32 Diabetes panel 02/02/17 Range/Units 01:32 Sodium 135 L (136-145) mEq/L Potassium 3.8 (3.5-4.5) mEq/L Chloride 106 (98-109) mEq/L Carbon Dioxide 21 (19-29) mEq/L BUN 10 (8-26) mg/dL Creatinine 0.98 (0.72-1.25) mg/dL Glucose 107 H (70-99) mg/dL Calcium 8.5 L (8.6-10.8) mg/dL AST 13 (5-34) Units/L ALT 10 (0-55) Units/L Alkaline Phosphatase 65 (38-126) Units/L Albumin 2.2 L (3.5-5.0) g/dL Calcium panel 02/02/17 Range/Units 01:32 Calcium 8.5 L (8.6-10.8) mg/dL Albumin 2.2 L (3.5-5.0) g/dL Pituitary panel 02/02/17 Range/Units 01:32 Sodium 135 L (136-145) mEq/L Potassium 3.8 (3.5-4.5) mEq/L Chloride 106 (98-109) mEq/L Carbon Dioxide 21 (19-29) mEq/L BUN 10 (8-26) mg/dL Creatinine 0.98 (0.72-1.25) mg/dL Glucose 107 H (70-99) mg/dL Calcium 8.5 L (8.6-10.8) mg/dL Adrenal panel 02/02/17 Range/Units 01:32 Sodium 135 L (136-145) mEq/L Potassium 3.8 (3.5-4.5) mEq/L Chloride 106 (98-109) mEq/L Carbon Dioxide 21 (19-29) mEq/L BUN 10 (8-26) mg/dL Creatinine 0.98 (0.72-1.25) mg/dL Glucose 107 H (70-99) mg/dL Calcium 8.5 L (8.6-10.8) mg/dL Total Bilirubin 0.1 L (0.2-1.2) mg/dL AST 13 (5-34) Units/L ALT 10 (0-55) Units/L Alkaline Phosphatase 65 (38-126) Units/L Albumin 2.2 L (3.5-5.0) g/dL - VTE Reasons for not Prescribing Prophylaxis: Medical contraindication Documentation of Mechanical Device: Intermittent pneumatic compression device Consult Discharge Plan - Plan Referrals: Bryce Jones DO [Primary Care Provider] -
[2017-02-02] MEDS: Ondansetron 4 MG/2 ML VIAL IVP PRN ×3 (07:16→21:54)
[2017-02-02] MEDS: Fluticasone Propionate Nasal 50 MCG/SPRAY BOTTLE NS SCH (07:47)
[2017-02-02] MEDS: Azelastine 0.1% Nasal Spray 30 ML BOTTLE NS SCH ×2 (07:47→20:21)
[2017-02-02] MEDS: Ketoconazole Shampoo 120 ML BOTTLE TP SCH (07:48)
[2017-02-02] MEDS ORDERED: Aminoglycoside Consult 1 EACH MC ONE (08:01)
[2017-02-02] MEDS ORDERED: (Roflumilast [Daliresp] 500 MCG) PO SCH (09:00)
[2017-02-02] MEDS: Budesonide/Formoterol 160/4.5 MDI IH SCH ×2 (10:43→21:23)
[2017-02-02] MEDS: Vancomycin 2,000 MG in D5% in Water 500 ML IVPB SCH (11:14)
[2017-02-02] MEDS ORDERED: Albuterol 2.5 MG/3 ML NEBULIZER IH PRN (11:18)
[2017-02-02 13:03] LABS: Hematocrit 28.4 % (37.5-50.1); Hemoglobin 8.8 g/dL (12.9-16.9)
[2017-02-02] MEDS ORDERED: Saline Nasal Spray 44 ML BOTTLE NS PRN (16:09)
[2017-02-02] MEDS: *HR* Enoxaparin 40 MG/0.4 ML SYRINGE SQ SCH (16:09)
--- NOTE | 2017-02-02 17:53 | Internal Med Progress Note ---
<Bryce Jones - Last Filed: 02/02/17 17:50> Date of Encounter: 02/02/17 Time of Encounter: 17:50 - Assessment and plan (1) GI bleed Current Visit: Yes Status: Acute (2) Recent major surgery Current Visit: Yes Status: Acute (3) Pneumonia Current Visit: Yes Status: Acute (4) Surgical wound, non healing Current Visit: Yes Status: Acute (5) Hypertension Current Visit: Yes Status: Acute (6) Sleep apnea Current Visit: Yes Status: Acute (7) Obesity Current Visit: Yes Status: Acute (8) DVT prophylaxis Current Visit: Yes Status: Acute - Subjective Interval history: Today Don states that he is feeling better. He states he had a formed bowel movement this mornign without blood. He admits to some postoperative adbdominal pain but this has been improving and is well controlled with medications. He denies any increased dyspnea He is on his home dose of O2. He dose admit to some sius pressure and increased sputum production ( yellow). He denies any further complaints or concerns at this time. - Constitutional Vitals: Temp Pulse Resp BP Pulse Ox 97.6 F 86 18 127/70 95 02/02/17 14:06 02/02/17 14:06 02/02/17 15:15 02/02/17 14:06 02/02/17 15:15 General appearance: Present: A&O X 3, obese - Head Head exam: Present: atraumatic, normal inspection, normocephalic - Eye Eye exam: Present: PERRL, conjuntiva pink, sclera anicteric Pupils: Present: PERRL - Neck Neck exam general surgery: Present: supple, trachea midline. Absent: lymphadenopathy - Respiratory Respiratory exam: Present: wheezes Additional comments: mild bilateral - Cardiovascular Cardiovascular exam: Present: RRR, +S1, +S2. Absent: diastolic murmur, gallop, rubs, systolic murmur - GI/Abdominal Additional comments: Surgical site is well healing. He dose have a wound vac with small black sponge in place. - Extremities Exam Extremities exam: Present: pedal edema (1+ ), warm, radial pulses palpable and symetrical. Absent: calf tenderness, cyanotic - Skin Skin exam: Present: dry, intact Internal Medicine: Result - Labs CBC & Chem 7: 02/02/17 12:35 02/02/17 01:32 Labs: Short CBC 02/01/17 02/02/17 02/02/17 Range/Units 19:58 01:32 01:32 WBC 9.8 (4.3-11.1) K/mcL Hgb 8.8 L 8.1 L 8.0 L (12.9-16.9) g/dL Hct 28.2 L 26.4 L 25.7 L (37.5-50.1) % Plt Count 350 (140-400) K/mcL Neutrophils # 6.6 (1.6-8.9) K/mcL 02/02/17 02/02/17 Range/Units 05:18 12:35 WBC (4.3-11.1) K/mcL Hgb 8.1 L 8.8 L (12.9-16.9) g/dL Hct 26.1 L 28.4 L (37.5-50.1) % Plt Count (140-400) K/mcL Neutrophils # (1.6-8.9) K/mcL BMP 02/02/17 01:32 Sodium 135 L Potassium 3.8 Chloride 106 Carbon Dioxide 21 BUN 10 Creatinine 0.98 Glucose 107 H Calcium 8.5 L Liver Function 02/02/17 Range/Units 01:32 Total Bilirubin 0.1 L (0.2-1.2) mg/dL AST 13 (5-34) Units/L ALT 10 (0-55) Units/L Alkaline Phosphatase 65 (38-126) Units/L Albumin 2.2 L (3.5-5.0) g/dL - ABG Interpretation ABG results: PT/INR, D-dimer PT 13.3 Seconds (9.4-12.1) H 02/02/17 01:32 - Impressions Impressions Chest CT 02/02/17 08:00 IMPRESSION: 1. Unchanged nodular consolidative opacity in the lateral basilar segment of the right lower lobe not present on 11/20/2016, likely pneumonia with rounded atelectasis considered less likely. Additional persistent peribronchovascular nodular opacities in the basilar segments of the right lower lobe likely represent infectious bronchiolitis and/or additional foci of pneumonia. 2. New 0.4 cm nodular opacity in the right upper lobe, likely infectious or inflammatory. 3. Long-term stability of a few solid nodules measure up to 0.2 cm in the right upper and left lower lobes, consistent with a benign process such as granulomatous disease. No additional follow-up is indicated. 4. Minimal bronchial wall thickening suggestive of bronchitis. D/ / Cole Quintero MD / Cole Quintero MD Interpreting Provider: Cole Quintero MD - VTE Reasons for not Prescribing Prophylaxis: Medical contraindication Documentation of Mechanical Device: Intermittent pneumatic compression device Consult Discharge Plan - Plan Referrals: Bryce Jones DO [Primary Care Provider] - <Donal Casas - Last Filed: 02/02/17 18:32> Date of Encounter: 02/02/17 - Constitutional Vitals: Temp Pulse Resp BP Pulse Ox 97.6 F 86 18 127/70 95 02/02/17 14:06 02/02/17 14:06 02/02/17 15:15 02/02/17 14:06 02/02/17 15:15 Internal Medicine: Result - Labs CBC & Chem 7: 02/02/17 12:35 02/02/17 01:32 Labs: Short CBC 02/01/17 02/02/17 02/02/17 Range/Units 19:58 01:32 01:32 WBC 9.8 (4.3-11.1) K/mcL Hgb 8.8 L 8.1 L 8.0 L (12.9-16.9) g/dL Hct 28.2 L 26.4 L 25.7 L (37.5-50.1) % Plt Count 350 (140-400) K/mcL Neutrophils # 6.6 (1.6-8.9) K/mcL 02/02/17 02/02/17 Range/Units 05:18 12:35 WBC (4.3-11.1) K/mcL Hgb 8.1 L 8.8 L (12.9-16.9) g/dL Hct 26.1 L 28.4 L (37.5-50.1) % Plt Count (140-400) K/mcL Neutrophils # (1.6-8.9) K/mcL BMP 02/02/17 01:32 Sodium 135 L Potassium 3.8 Chloride 106 Carbon Dioxide 21 BUN 10 Creatinine 0.98 Glucose 107 H Calcium 8.5 L Liver Function 02/02/17 Range/Units 01:32 Total Bilirubin 0.1 L (0.2-1.2) mg/dL AST 13 (5-34) Units/L ALT 10 (0-55) Units/L Alkaline Phosphatase 65 (38-126) Units/L Albumin 2.2 L (3.5-5.0) g/dL - ABG Interpretation ABG results: PT/INR, D-dimer PT 13.3 Seconds (9.4-12.1) H 02/02/17 01:32 - Impressions Impressions Chest CT 02/02/17 08:00 IMPRESSION: 1. Unchanged nodular consolidative opacity in the lateral basilar segment of the right lower lobe not present on 11/20/2016, likely pneumonia with rounded atelectasis considered less likely. Additional persistent peribronchovascular nodular opacities in the basilar segments of the right lower lobe likely represent infectious bronchiolitis and/or additional foci of pneumonia. 2. New 0.4 cm nodular opacity in the right upper lobe, likely infectious or inflammatory. 3. Long-term stability of a few solid nodules measure up to 0.2 cm in the right upper and left lower lobes, consistent with a benign process such as granulomatous disease. No additional follow-up is indicated. 4. Minimal bronchial wall thickening suggestive of bronchitis. D/ / Cole Quintero MD / Cole Quintero MD Interpreting Provider: Cole Quintero MD - Attending Attestation I examined this patient and my medical decision-making was reviewed with the Resident Physician, Dr. Jones. I agree with the documented findings, disposition and treatment plan as described except to the extent set forth below. Patient appears in no acute distress. Heart is regular rhythm S1-S2. Lung auscultation reveals bilateral expiratory wheezes. Abdomen is obese soft nontender nondistended. We will treat him with Zosyn and Levaquin and vancomycin for healthcare associated pneumonia, IV steroids and inhaled bronchodilators for COPD.
[2017-02-02] MEDS: Sennosides/Docusate Sodium TABLET PO SCH (20:17)
[2017-02-02] MEDS: Levofloxacin 750 MG/150 ML 750 MG/150 ML BAG IVPB SCH (20:21)
[2017-02-02] MEDS: 0.9 % Sodium Chloride 1,000 ML IVC SCH (20:22)
[2017-02-02] MEDS ORDERED: *HR* LORazepam 0.5 MG TABLET PO ONE (21:41)
[2017-02-03] MEDS: *HR* HYDROmorphone (PF) 1 MG/ML SYRINGE IVP PRN ×5 (00:30→20:26)
[2017-02-03] MEDS: Ipratropium/Albuterol Neb 3 ML IH SCH ×4 (03:42→22:00)
[2017-02-03 05:20] LABS: Basophils % 0.1 %; Hematocrit 25.1 % (37.5-50.1); Immature Granulocytes % 1.2 % (0-4); Lymphocytes % 9.7 %; Mean Corpuscular HGB Conc 31.9 g/dL (31.6-35.5); Mean Corpuscular Hemoglobin 27.4 pg (28.0-33.3); Mean Platelet Volume 9.5 fL (9.4-12.4); Monocytes # 0.7 K/mcL (0.0-1.3); Monocytes % 6.6 %; Neutrophils # 8.6 K/mcL (1.6-8.9); Platelet Count 390 K/mcL (140-400); Red Blood Count 2.92 M/mcL (4.19-5.50); Red Cell Distribution Width 15.6 % (11.5-14.5); Segmented Neutrophils % 82.4 %
[2017-02-03 05:31] LABS: BUN/Creatinine Ratio 13 (6-26); Blood Urea Nitrogen 12 mg/dL (8-26); Carbon Dioxide 21 mEq/L (19-29); Chloride 106 mEq/L (98-109); Glucose 148 mg/dL (70-99); Osmolality,Calculated 291 (280-300); Potassium 4.4 mEq/L (3.5-4.5); Sodium 139 mEq/L (136-145); eGFR For African Americans > 60 (> 60); eGFR For Non-African Americans > 60 (> 60)
[2017-02-03] MEDS: methylPREDNISolone 125 MG/2 ML VIAL IVP SCH (05:35)
[2017-02-03] MEDS: *HR* Enoxaparin 40 MG/0.4 ML SYRINGE SQ SCH (05:38)
[2017-02-03] MEDS: Metoclopramide 10 MG/2 ML VIAL IVP PRN (05:42)
[2017-02-03] MEDS: Budesonide/Formoterol 160/4.5 MDI IH SCH ×2 (09:19→22:01)
[2017-02-03] MEDS: Piperacillin/Tazobactam 3.375 GM in D5% in Water (Mini-Bag+) 100 ML IVPB SCH (09:37)
[2017-02-03] MEDS: Azelastine 0.1% Nasal Spray 30 ML BOTTLE NS SCH ×2 (09:41→20:29)
[2017-02-03] MEDS: Fluticasone Propionate Nasal 50 MCG/SPRAY BOTTLE NS SCH (09:41)
[2017-02-03] MEDS ORDERED: Iron Sucrose Complex 400 MG in 0.9 % Sodium Chloride 250 ML IVPB ONE (12:18)
--- NOTE | 2017-02-03 13:36 | Pulmonology Consult Note ---
Date of Encounter: 02/03/17 Time of Encounter: 09:35 Assessment and Plan (1) Abnormal CT scan, chest Current Visit: Yes Status: Acute The serial imaging study findings are as outlined in the earlier part of this dictation. The main concern currently is that of patchy density within the right lower lobe and whether this at this time represents evidence of active pneumonia. Given the rather somewhat chronic nature of this infiltrate, the absence of symptoms suggesting an active infection of the lower respiratory tract at this time, I do not believe that the parenchymal abnormality is truly corporate representative of active pneumonia. More than likely, this may be the remanent radiographic finding of a prior pneumonia. Therefore, I do not believe that it is prudent to continue antimicrobial therapy directed toward a possible drug- resistant pneumonia. I would recommend repeat radiographic evaluation in approximately 6-8 weeks in order to ensure clearance of the abnormality. Given the rather abrupt onset of the abnormality menses right lower lobe infiltrate) this is likely the residual of an infectious/inflammatory nonmalignant disorder. Code(s): R93.8 - Abnormal findings on diagnostic imaging of other specified body structures SNOMED Code(s): 674762032 (2) COPD (chronic obstructive pulmonary disease) Current Visit: Yes Status: Chronic Based upon the patient's history prior evaluation and radiographic as well as physical examination findings, Mr. Herring does in fact have moderate police she is me severe COPD with clinical features suggesting both emphysema and airway reactivity. I agree with the provision of a bronchodilator therapy and systemic steroid as well as inhaled steroid therapy as provided by the primary service. Although less than ideal, perhaps Mr. Herring will require chronic low -dose prednisone in order to control COPD. My conversation with the patient, immunizations are up-to-date. Qualifiers: COPD type: unspecified COPD Qualified Code(s): J44.9 - Chronic obstructive pulmonary disease, unspecified (3) Obstructive sleep apnea Current Visit: No Status: Chronic Continue current treatment with BiPAP, symptoms seemingly reasonably controlled with current level of support. History of Present Illness Consult date: 02/03/17 Chief complaint: Dyspnea, cough, abnormal chest imaging (chest x-ray and CT scan ). History of present illness: This 61-year-old male has a well-established history of severe COPD and sleep apnea. He was admitted to the hospital at this time with complaints of diarrhea and bright red blood per rectum. Of note, the patient recently underwent a partial small bowel resection for small bowel obstruction and the hospital course was complicated by respiratory failure necessitating prolonged intubation and ventilation as well as wound infection (the patient currently utilizes a for treatment of the same). During that protracted hospitalization, it is also quite likely the patient developed a right lower lobe pneumonia ( based upon imaging studies as well as clinical history) and received empiric antibiotic therapy. Currently, the patient was readmitted for the aforenoted gastrointestinal complaints. Although the patient describes chronic breathlessness, activity limitation due to breathlessness and intermittent wheeze in spite of appropriate treatment of COPD (free of tobacco product use for at least the past 10 years) currently, Mr. Herring denies cough with purulent sputum production, chest pain, fevers or chills. From a pulmonary perspective, aside from COPD, Mr. Herring has well-established sleep apnea for which he utilizes a BiPAP device in the home setting. Given abnormal chest imaging studies, pulmonary consultation was requested for further evaluation. Past Med Surg Social Fam HX - Past Medical History Medical history: cardiomyopathy, COPD, diabetes, GERD, hypertension, other Psychiatric history: anxiety, depression - Past Surgical History Surgical History: cataract, herniorrhaphy, other - Social History Smoking Status: Former smoker Smokeless Tobacco Status: No Alcohol use: rarely Drug use: none - Family History Father Family Member Ethnicity: Non- Living Status: Hx Family Cardiac Disorders: No Hx Family Respiratory Disorders: No Hx Family Cancer: Yes (pancreatic) Hx Family GI Disorders: No Hx Family Endocrine Disorder: Yes Hx Family Neuromuscular Disorders: No Hx Family Neurologic Disorders: No Hx Family HEENT Disorders: No Hx Family Autoimmune Disorders: No Mother Adopted: No Family Member Ethnicity: Non- Living Status: Hx Family Cardiac Disorders: Yes Hx Family Respiratory Disorders: Yes Hx Family Cancer: Yes (lung cancer) Hx Family GI Disorders: No Hx Family Endocrine Disorder: No Hx Family Neuromuscular Disorders: No Hx Family Neurologic Disorders: No Hx Family HEENT Disorders: No Hx Family Autoimmune Disorders: No Sister History Unknown: Yes Living Status: Hx Family Cardiac Disorders: Yes Hx Family Respiratory Disorders: Yes Hx Family Cancer: No Hx Family GI Disorders: No Hx Family Endocrine Disorder: No Hx Family Neuromuscular Disorders: No Hx Family Neurologic Disorders: No Hx Family HEENT Disorders: No Hx Family Autoimmune Disorders: No Medications and Allergies Albuterol Sulfate [Albuterol Inhaler] 2 puff IH Q4HR PRN 03/16/16 [History] Azelastine 0.1% Nasal [place] [Astelin] 1 spray NS BID 03/16/16 [History] Budesonide/Formoterol 160/4.5 [Symbicort 160/4.5] 2 puff IH BIDR 03/16/16 [ History] ClonazePAM [Klonopin] 1 mg PO BID PRN 03/16/16 [History] Docusate [Colace] 300 mg PO BID PRN 03/16/16 [History] Ergocalciferol (VITAMIN D2) [Vitamin D] 400 unit PO DAILY 03/16/16 [History] Esomeprazole Magnesium [Nexium] 40 mg PO BID 03/16/16 [History] Fluticasone Propionate Nasal [Flonase] 2 spray NS DAILY 03/16/16 [History] Ketoconazole Shampoo [Nizoral Shampoo] 1 appl TP 3XW 03/16/16 [History] Polyethylene Glycol 3350 [MiraLAX] 17 gm PO DAILY 03/16/16 [History] Psyllium Seed (with Sugar) [Metamucil Powder] 1 each PO BID 03/16/16 [History] Roflumilast [Daliresp] 500 mcg PO DAILY 03/16/16 [History] Sodium Chloride [[place] Saline] 1 spray NS BID PRN 03/16/16 [History] Montelukast [Singulair] 10 mg PO HS #30 tablet 09/30/16 [Rx] Metoclopramide [Reglan] 10 mg PO ACHS 11/03/16 [History] Umeclidinium Naselle [Incruse Ellipta] 1 puff IH DAILY 11/03/16 [History] Oxygen 3 l .ROUTE AD 11/20/16 [History] Losartan [Cozaar] 25 mg PO DAILY #30 tablet 12/10/16 [Rx] Furosemide [Lasix] 40 mg PO BID #60 tablet 01/06/17 [Rx] GuaiFENesin ER [Mucinex] 600 mg PO BID PRN #0 tbbp.12hr 01/06/17 [Rx] Cetirizine HCl [Zyrtec] 10 mg PO DAILY PRN #0 01/27/17 [Rx] Magnesium Oxide [Mag-Ox] 400 mg PO DAILY #15 tablet 01/27/17 [Rx] Metoprolol [Lopressor] 25 mg PO BID #60 tablet 01/27/17 [Rx] Ondansetron ODT [Zofran ODT] 4 mg SL Q4HR PRN #30 tab.rapdis 01/27/17 [Rx] Potassium Chloride 20 meq PO DAILY #15 tab.er.prt 01/27/17 [Rx] OxyCODONE/APAP 10/325 [Percocet 10/325 MG] 1 tab PO Q6HR PRN 02/01/17 [History] Allergies morphine Allergy (Verified 02/01/17 10:17) Difficulty Breathing sulfamethoxazole [From Bactrim] Allergy (Verified 02/01/17 10:17) Hives trimethoprim [From Bactrim] Allergy (Verified 02/01/17 10:17) Hives codeine Adverse Reaction (Verified 02/01/17 10:17) Nausea All Systems: A 10-system review of systems was performed and is negative for pertinent findings except as documented above in the HPI. - Constitutional Constitutional: daytime sleepiness, fatigue - Respiratory Respiratory: as per HPI - Gastrointestinal Gastrointestinal: as per HPI Physical Examination Vital Signs: Vital Signs, Last 4 Hours Temp Pulse Resp BP Pulse Ox 02/03/17 11:33 97.9 F 94 18 121/64 95 General appearance: no acute distress, other (Morbidly obese male, awake and alert, appears in no acute distress, vitals reviewed) Eyes: nonicteric Mallampati (class): 3 Auscultation: bilateral: diminished breath sounds, other (Note mainly subglottic wheeze, central airway rhonchi.) Cardiovascular: regular rate and rhythm Gastrointestinal: normoactive bowel sounds, non-tender, non-distended, other ( Wound VAC noted over the lower mid abdominal region.) Extremities: no cyanosis, edema (Trace lower extremity edema) Musculoskeletal: no deformities normal mental status, non-focal exam Results - Laboratory Findings CBC and BMP: 02/03/17 04:36 02/03/17 04:36 PT/INR, D-dimer PT 13.3 Seconds (9.4-12.1) H 02/02/17 01:32 Abnormal lab findings: Abnormal lab results RBC 2.92 M/mcL (4.19-5.50) L 02/03/17 04:36 Hgb 8.0 g/dL (12.9-16.9) L 02/03/17 04:36 Hct 25.1 % (37.5-50.1) L 02/03/17 04:36 MCH 27.4 pg (28.0-33.3) L 02/03/17 04:36 RDW 15.6 % (11.5-14.5) H 02/03/17 04:36 PT 13.3 Seconds (9.4-12.1) H 02/02/17 01:32 Glucose 148 mg/dL (70-99) H 02/03/17 04:36 POC Glucose 176 (58-89) H 02/03/17 11:35 Total Bilirubin 0.1 mg/dL (0.2-1.2) L 02/02/17 01:32 Albumin 2.2 g/dL (3.5-5.0) L 02/02/17 01:32 Globulin 4.9 g/dL (2.4-3.5) H 02/02/17 01:32 Albumin/Globulin Ratio 0.4 (1.1-2.2) L 02/02/17 01:32 - Microbiology Findings Microbiology Findings: Microbiology, Last 48 Hours 02/01/17 23:15 Legionella Antigen - Final Urine,Clean Catch Streptococcus pneumoniae Antigen (M - Final - Diagnostic Findings Additional studies: Imaging studies of the chest and abdomen were reviewed dating back to 2216. A chest x-ray at that time revealed absence of infiltrate particularly within the right lower lobe. A follow-up chest radiograph from 3116 did reveal a vague density within the right lower lobe. Later CT imaging of the chest in the abdomen for and also revealed a patchy density within the right lower lobe. The dedicated chest CT scan also revealed finding suggestive of central lobular emphysema and perhaps mild volume loss and/or bronchiectasis within the distribution of the lingula and the medial subsegment of the right middle lobe. The pulmonary artery was also enlarged suggesting pulmonary arterial hypertension and mild enlargement of mediastinal hilar lymph nodes noted as well. - Clinical Findings Intake & Output: Intake & Output 02/02/17 02/03/17 02/03/17 23:59 07:59 15:59 Intake Total 615 / 615 100 / 100 0 / 0 Output Total 400 / 400 400 / 400 0 / 0 Balance 215 / 215 -300 / -300 0 / 0 Weight 126.9 kg Consult Discharge Plan - Plan Referrals: Bryce Jones DO [Primary Care Provider] -
[2017-02-03] MEDS ORDERED: Acetylcysteine 10% 2 ML INHSOL IH SCH (16:00)
[2017-02-03] MEDS: Ondansetron 4 MG/2 ML VIAL IVP PRN (16:21)
--- NOTE | 2017-02-03 16:47 | Internal Med Progress Note ---
<Bryce Jones - Last Filed: 02/03/17 17:13> Date of Encounter: 02/03/17 Time of Encounter: 16:46 - Assessment and plan (1) GI bleed Current Visit: Yes Status: Acute Assessment and plan: mild trend down in Hg. Possibly hemmorhoidal? No active bleeding at this time. We will continue to follow along with surgery. (2) Recent major surgery Current Visit: Yes Status: Acute (3) Pneumonia Current Visit: Yes Status: Acute Assessment and plan: I do not feel that this is an actual pneumonia given the patients symptomatology. I will discuss the patient and review the films with Pulmonology. (4) Surgical wound, non healing Current Visit: Yes Status: Acute Assessment and plan: on wound vac (5) Hypertension Current Visit: Yes Status: Acute Assessment and plan: at goal (6) Sleep apnea Current Visit: Yes Status: Acute Assessment and plan: BIPAP at night (7) Obesity Current Visit: Yes Status: Acute Assessment and plan: weight loss (8) Chronic hypoxemic respiratory failure Current Visit: Yes Status: Acute Assessment and plan: at home dose of 3L NC (9) COPD (chronic obstructive pulmonary disease) Current Visit: Yes Status: Acute Assessment and plan: continue bronchodialators and steroids. We will attempt to wean steroids. May need to be on low dose chronic steroids. I will discuss with pulmonology. (10) Emphysema lung Current Visit: Yes Status: Acute (11) DVT prophylaxis Current Visit: Yes Status: Acute Assessment and plan: Lovenox - Subjective Interval history: Today Don states that he is feeling better. He has had no bowel movements since yesterday. He admits to some postoperative adbdominal pain but this has been improving and is well controlled with medications. He denies any increased dyspnea He is on his home dose of O2. He dose admit to some pleuritic chest pain. He points to his xyphoind. He states the pain is present only with deep breathing. . He denies any further complaints or concerns at this time. - Constitutional Vitals: Temp Pulse Resp BP Pulse Ox 97.4 F L 96 18 136/69 95 02/03/17 15:23 02/03/17 15:23 02/03/17 15:23 02/03/17 15:23 04/27/17 15:23 General appearance: Present: A&O X 3, obese - Head Head exam: Present: atraumatic, normal inspection, normocephalic - Eye Eye exam: Present: PERRL, conjuntiva pink, sclera anicteric Pupils: Present: PERRL - ENT ENT exam: Present: mucous membranes moist - Neck Neck exam general surgery: Present: supple, trachea midline. Absent: lymphadenopathy Additional comments: obese - Respiratory Additional comments: He has a normal effort of breathing. He is able to converse easily. He has some bilateral expiratory wheezes. Good airflow but possibly a little less diminished globally today. - Cardiovascular Cardiovascular exam: Present: RRR, +S1, +S2. Absent: diastolic murmur, gallop, rubs, systolic murmur - GI/Abdominal GI/Abdominal exam: Present: normal bowel sounds, soft, tenderness (mild diffuse) , no peritoneal signs. Absent: distended Additional comments: wound vac in place. - Extremities Exam Extremities exam: Present: pedal edema (1+ to the knee), warm, radial pulses palpable and symetrical. Absent: calf tenderness, cyanotic - Neurological Exam Neurological exam: Present: CN II-XII intact, oriented X3, no focal deficits. Absent: pronater drift, facial droop, speech deficit - Skin Skin exam: Present: dry, intact Internal Medicine: Result - Labs CBC & Chem 7: 02/03/17 04:36 02/03/17 04:36 Labs: Short CBC 02/03/17 Range/Units 04:36 WBC 10.4 (4.3-11.1) K/mcL Hgb 8.0 L (12.9-16.9) g/dL Hct 25.1 L (37.5-50.1) % Plt Count 390 (140-400) K/mcL Neutrophils # 8.6 (1.6-8.9) K/mcL BMP 02/03/17 04:36 Sodium 139 Potassium 4.4 Chloride 106 Carbon Dioxide 21 BUN 12 Creatinine 0.96 Glucose 148 H Calcium 9.0 - ABG Interpretation ABG results: PT/INR, D-dimer PT 13.3 Seconds (9.4-12.1) H 02/02/17 01:32 - VTE Reasons for not Prescribing Prophylaxis: Medical contraindication Documentation of Mechanical Device: Intermittent pneumatic compression device Consult Discharge Plan - Plan Referrals: Bryce Jones DO [Primary Care Provider] - <Donal Casas - Last Filed: 02/03/17 18:00> Date of Encounter: 02/03/17 - Constitutional Vitals: Temp Pulse Resp BP Pulse Ox 97.4 F L 96 16 136/69 96 02/03/17 15:23 02/03/17 15:23 02/03/17 16:50 02/03/17 15:23 02/03/17 16:50 Internal Medicine: Result - Labs CBC & Chem 7: 02/03/17 04:36 02/03/17 04:36 Labs: Short CBC 02/03/17 Range/Units 04:36 WBC 10.4 (4.3-11.1) K/mcL Hgb 8.0 L (12.9-16.9) g/dL Hct 25.1 L (37.5-50.1) % Plt Count 390 (140-400) K/mcL Neutrophils # 8.6 (1.6-8.9) K/mcL BMP 02/03/17 04:36 Sodium 139 Potassium 4.4 Chloride 106 Carbon Dioxide 21 BUN 12 Creatinine 0.96 Glucose 148 H Calcium 9.0 - ABG Interpretation ABG results: PT/INR, D-dimer PT 13.3 Seconds (9.4-12.1) H 02/02/17 01:32 - Attending Attestation I examined this patient and my medical decision-making was reviewed with Dr. Jones, Resident Physician. I agree with the documented findings, disposition and treatment plan as described except to the extent set forth below. He reports some central chest pressure related to coughing. Heart exam reveals S1-S2, no murmurs. Lungs with diminished breath sounds bilaterally and expiratory wheezes. We will start tapering steroids. Follow-up with pulmonary service. Continue IV antibiotics for pneumonia for now. Follow blood cultures and sputum culture. Inhaled bronchodilators. Add Mucomyst.
--- NOTE | 2017-02-03 16:53 | General Surgery Progress Note ---
Date of Encounter: 02/04/17 Time of Encounter: 16:45 - Assessment and Plan (1) GI bleed Current Visit: No Status: Acute No current or ongoing evidence of rectal bleeding- normal brown BM today Hgb- 8.8>8.0 today Tolerating a cardiac diet Repeat am labs PT/OT daily Discharge planning- patient requesting to discharge to home with home health care when medically appropriate for discharge Qualifiers: GI bleed type/associated pathology: unspecified gastrointestinal hemorrhage type Qualified Code(s): K92.2 - Gastrointestinal hemorrhage, unspecified (2) Abnormal CT scan, chest Current Visit: Yes Status: Acute Appreciate input for Dr. Lambert Findings most likely related to previous pneumonia (3) COPD (chronic obstructive pulmonary disease) Current Visit: No Status: Chronic Stable Management per medicine service Qualifiers: COPD type: unspecified COPD Qualified Code(s): J44.9 - Chronic obstructive pulmonary disease, unspecified (4) Morbid obesity with BMI of 40.0-44.9, adult Current Visit: Yes Status: Chronic (5) DVT prophylaxis Current Visit: Yes Status: Acute Lovenox 40mg SQ daily for DVT prophylaxis Subjective Patient reports: no new complaints, feels better, still having pain, pain is less, tolerating a regular diet, voiding w/o difficulty, flatus, bowel movement , shortness of breath (at baseline, chronic), afebrile Objective Vital Signs - Last 8 Hours Temp Pulse Resp BP Pulse Ox 02/03/17 15:23 97.4 F L 96 18 136/69 95 02/03/17 11:33 97.9 F 94 18 121/64 95 02/03/17 09:19 20 94 Intake and Output 02/03/17 02/03/17 02/03/17 07:59 15:59 23:59 Intake Total 100 / 100 0 / 0 Output Total 400 / 400 0 / 0 Balance -300 / -300 0 / 0 Intake: IV Fluids 100 / 100 Zosyn 3.375 GM In 100 / 100 Dextrose 5% (Minibag+) 100 ML 100 ML @ 25 mls/hr IVPB Q8HR [facility] Rx#: [id number] Oral 0 / 0 0 / 0 Output: Urine 400 / 400 0 / 0 Other: Meal NPO Weight 126.9 kg Blood Glucose* 147 176 Patient Weight 02/03/17 23:59 Weight 126.9 kg - General physical appearance well nourished, no distress, chronically ill, obese - Eyes normal ocular movement - ENT normal mucosa, atraumatic, normocephalic - Neck Neck exam: trachea midline - Respiratory clear to auscultation, other (diminished bibasilar bases) - Cardiovascular Cardiovascular exam: Present: RRR - Abdomen Abdomen: Present: bowel sounds present, soft, non tender, wound (Wound vac intact with scant amount of serous drainage noted) - Incision Incision: Present: open (Wound vac to midline intact with small amount of serous drainage noted) - Neurologic CN 2-12 grossly intact - Musculoskeletal other (deconditioning noted) - Psychiatric oriented to time, oriented to person, oriented to place, speech is normal, memory intact - Labs 02/04/17 05:21 02/04/17 05:21 Diabetes panel 02/03/17 Range/Units 04:36 Sodium 139 (136-145) mEq/L Potassium 4.4 (3.5-4.5) mEq/L Chloride 106 (98-109) mEq/L Carbon Dioxide 21 (19-29) mEq/L BUN 12 (8-26) mg/dL Creatinine 0.96 (0.72-1.25) mg/dL Glucose 148 H (70-99) mg/dL Calcium 9.0 (8.6-10.8) mg/dL Calcium panel 02/03/17 Range/Units 04:36 Calcium 9.0 (8.6-10.8) mg/dL Pituitary panel 02/03/17 Range/Units 04:36 Sodium 139 (136-145) mEq/L Potassium 4.4 (3.5-4.5) mEq/L Chloride 106 (98-109) mEq/L Carbon Dioxide 21 (19-29) mEq/L BUN 12 (8-26) mg/dL Creatinine 0.96 (0.72-1.25) mg/dL Glucose 148 H (70-99) mg/dL Calcium 9.0 (8.6-10.8) mg/dL Adrenal panel 02/03/17 Range/Units 04:36 Sodium 139 (136-145) mEq/L Potassium 4.4 (3.5-4.5) mEq/L Chloride 106 (98-109) mEq/L Carbon Dioxide 21 (19-29) mEq/L BUN 12 (8-26) mg/dL Creatinine 0.96 (0.72-1.25) mg/dL Glucose 148 H (70-99) mg/dL Calcium 9.0 (8.6-10.8) mg/dL - VTE Reasons for not Prescribing Prophylaxis: Medical contraindication Documentation of Mechanical Device: Intermittent pneumatic compression device Consult Discharge Plan - Plan Referrals: Bryce Jones DO [Primary Care Provider] - - Attending Attestation I examined this patient and my medical decision-making was reviewed with the HOTEL ASSISTANT GENERAL MANAGER/PA/Advanced Practice Nurse/Resident Physician. I agree with the documented findings, disposition and treatment plan as described except to the extent set forth below. The patient is seen and evaluated, agree with documentation and plan Jose Antonio Jones MD FACS
[2017-02-03] MEDS: MethylPREDNISolone 40 MG/ML VIAL IVP SCH (18:45)
[2017-02-03] MEDS: Acetylcysteine 10% 2 ML INHSOL IH SCH ×2 (19:35→22:01)
[2017-02-03] MEDS ORDERED: Acetaminophen 325 MG TABLET PO PRN (20:12)
[2017-02-03] MEDS: Sennosides/Docusate Sodium TABLET PO SCH (20:28)
[2017-02-03] MEDS: 0.9 % Sodium Chloride 1,000 ML IVC SCH (20:32)
[2017-02-03] MEDS: clonazePAM 1 MG TABLET PO PRN (22:03)
[2017-02-04] MEDS: Ondansetron 4 MG/2 ML VIAL IVP PRN ×3 (02:52→21:55)
[2017-02-04] MEDS: *HR* HYDROmorphone (PF) 1 MG/ML SYRINGE IVP PRN (02:57)
[2017-02-04] MEDS: Ipratropium/Albuterol Neb 3 ML IH SCH ×4 (04:14→21:53)
[2017-02-04] MEDS: Acetylcysteine 10% 2 ML INHSOL IH SCH ×4 (04:14→21:53)
[2017-02-04] MEDS: MethylPREDNISolone 40 MG/ML VIAL IVP SCH ×3 (04:58→21:49)
[2017-02-04] MEDS: *HR* Enoxaparin 40 MG/0.4 ML SYRINGE SQ SCH (05:00)
[2017-02-04 06:15] LABS: Hematocrit 26.8 % (37.5-50.1); Hemoglobin 8.3 g/dL (12.9-16.9); Lymphocytes # 1.1 K/mcL (0.6-4.6); Lymphocytes % 9.7 %; Mean Corpuscular Hemoglobin 27.2 pg (28.0-33.3); Mean Corpuscular Volume 87.9 fL (83.0-100.0); Mean Platelet Volume 9.6 fL (9.4-12.4); Monocytes % 9.1 %; Neutrophils # 9.1 K/mcL (1.6-8.9); Platelet Count 373 K/mcL (140-400); Red Blood Count 3.05 M/mcL (4.19-5.50); Segmented Neutrophils % 80.2 %
[2017-02-04 06:31] LABS: BUN/Creatinine Ratio 22 (6-26); Blood Urea Nitrogen 21 mg/dL (8-26); Calcium 9.1 mg/dL (8.6-10.8); Carbon Dioxide 24 mEq/L (19-29); Chloride 109 mEq/L (98-109); Glucose 147 mg/dL (70-99); Osmolality,Calculated 300 (280-300); Potassium 4.3 mEq/L (3.5-4.5); Sodium 142 mEq/L (136-145); eGFR For African Americans > 60 (> 60); eGFR For Non-African Americans > 60 (> 60)
[2017-02-04] MEDS: *HR* OxyCODONE/APAP 10/325 TABLET PO PRN ×3 (09:06→21:45)
[2017-02-04] MEDS: Azelastine 0.1% Nasal Spray 30 ML BOTTLE NS SCH ×2 (09:08→21:50)
[2017-02-04] MEDS: Ketoconazole Shampoo 120 ML BOTTLE TP SCH (09:08)
[2017-02-04] MEDS: Fluticasone Propionate Nasal 50 MCG/SPRAY BOTTLE NS SCH (09:08)
[2017-02-04] MEDS: Budesonide/Formoterol 160/4.5 MDI IH SCH ×2 (11:00→21:54)
--- NOTE | 2017-02-04 11:16 | General Surgery Progress Note ---
Date of Encounter: 02/04/17 Time of Encounter: 11:00 - Assessment and Plan (1) GI bleed Current Visit: No Status: Acute No current or ongoing evidence of rectal bleeding- normal brown BM today (small amount of blood on toilet paper) Hgb- 8.8>8.0>8.3 today Tolerating a cardiac diet Repeat am labs PT/OT daily Discussed transfer of service to hospitalist Discharge planning- patient requesting to discharge to home with home health care when medically appropriate for discharge Qualifiers: GI bleed type/associated pathology: unspecified gastrointestinal hemorrhage type Qualified Code(s): K92.2 - Gastrointestinal hemorrhage, unspecified (2) Abnormal CT scan, chest Current Visit: Yes Status: Acute Appreciate input for Dr. Lambert Findings most likely related to previous pneumonia (3) COPD (chronic obstructive pulmonary disease) Current Visit: No Status: Chronic Stable Management per medicine service Qualifiers: COPD type: unspecified COPD Qualified Code(s): J44.9 - Chronic obstructive pulmonary disease, unspecified (4) Morbid obesity with BMI of 40.0-44.9, adult Current Visit: Yes Status: Chronic (5) DVT prophylaxis Current Visit: Yes Status: Acute Lovenox 40mg SQ daily for DVT prophylaxis Subjective Patient reports: no new complaints, still having pain, voiding w/o difficulty, flatus, bowel movement (noted minimal blood with wiping this morning (on toilet paper)), shortness of breath, afebrile Objective Vital Signs - Last 8 Hours Temp Pulse Resp BP Pulse Ox 02/04/17 10:27 97.7 F 88 18 143/78 96 02/04/17 07:12 97.7 F 81 18 141/84 97 02/04/17 04:52 97.8 F 86 15 153/68 100 02/04/17 04:14 17 97 Intake and Output 02/03/17 02/04/17 02/04/17 23:59 07:59 15:59 Intake Total 714 / 714 0 / 0 0 / 0 Output Total 225 / 225 200 / 200 75 / 75 Balance 489 / 489 -200 / -200 -75 / -75 Intake: IV Fluids 714 / 714 0.9 % Sodium Chloride 1, 444 / 444 000 ML @ 25 mls/hr IVC . Q24H [facility] Rx#:[id number] Oral 0 / 0 0 / 0 0 / 0 Output: Urine 225 / 225 200 / 200 75 / 75 Wound Drainage 0 / 0 0 / 0 Midline Abdomen 0 / 0 0 / 0 Other: Stool Size Large Moderate Stool Consistency loose loose liquid liquid soft Stool Color Brown Brown # Voids 1 # Bowel Movements 1 Weight 127 kg Blood Glucose* 184 148 Patient Weight 02/04/17 23:59 Weight 127 kg - General physical appearance well developed, well nourished, no distress - Eyes normal ocular movement - ENT normal mucosa, atraumatic, normocephalic - Neck Neck exam: trachea midline - Respiratory normal respiratory effort, other (diminished breath sounds bilaterally; CPAP on at this time) wheezing: bilateral - Cardiovascular Cardiovascular exam: Present: RRR - Abdomen Abdomen: Present: bowel sounds present, soft, tender (Generalized), wound ( Midline with wound- wound vac removed, 90% granulation tissue, no surrounding erythema or induraiton, scant amount of serous drainage noted) - Incision Incision: Present: open (Midline with wound- wound vac removed, 90% granulation tissue, no surrounding erythema or induraiton, scant amount of serous drainage noted) - Neurologic CN 2-12 grossly intact - Psychiatric oriented to time, oriented to person, oriented to place, speech is normal, memory intact - Labs 02/04/17 05:21 02/04/17 05:21 Diabetes panel 02/04/17 Range/Units 05:21 Sodium 142 (136-145) mEq/L Potassium 4.3 (3.5-4.5) mEq/L Chloride 109 (98-109) mEq/L Carbon Dioxide 24 (19-29) mEq/L BUN 21 (8-26) mg/dL Creatinine 0.96 (0.72-1.25) mg/dL Glucose 147 H (70-99) mg/dL Calcium 9.1 (8.6-10.8) mg/dL Calcium panel 02/04/17 Range/Units 05:21 Calcium 9.1 (8.6-10.8) mg/dL Pituitary panel 02/04/17 Range/Units 05:21 Sodium 142 (136-145) mEq/L Potassium 4.3 (3.5-4.5) mEq/L Chloride 109 (98-109) mEq/L Carbon Dioxide 24 (19-29) mEq/L BUN 21 (8-26) mg/dL Creatinine 0.96 (0.72-1.25) mg/dL Glucose 147 H (70-99) mg/dL Calcium 9.1 (8.6-10.8) mg/dL Adrenal panel 02/04/17 Range/Units 05:21 Sodium 142 (136-145) mEq/L Potassium 4.3 (3.5-4.5) mEq/L Chloride 109 (98-109) mEq/L Carbon Dioxide 24 (19-29) mEq/L BUN 21 (8-26) mg/dL Creatinine 0.96 (0.72-1.25) mg/dL Glucose 147 H (70-99) mg/dL Calcium 9.1 (8.6-10.8) mg/dL - VTE Reasons for not Prescribing Prophylaxis: Medical contraindication Documentation of Mechanical Device: Graduated compression elastic hosiery Consult Discharge Plan - Plan Referrals: Martha Mckeon DO [Resident] - 02/15/17 4:00 pm - Attending Attestation I examined this patient and my medical decision-making was reviewed with the COUNTER WAITER/PA/Advanced Practice Nurse/Resident Physician. I agree with the documented findings, disposition and treatment plan as described except to the extent set forth below. Pt seen and evaluated. No bowel obstruction or bleeding . CT ABD likely an overcall WBC normal, no need to treat ct findings Jose Antonio Jones MD FACS
--- NOTE | 2017-02-04 17:37 | Internal Med Progress Note ---
<Bryce Jones - Last Filed: 02/04/17 17:33> Date of Encounter: 02/04/17 Time of Encounter: 11:40 - Assessment and plan (1) GI bleed Current Visit: Yes Status: Acute Assessment and plan: Hg trending up likely hemorrhoidal only minimal streaking on stool this AM. Appreciate Surgeries input. (2) Recent major surgery Current Visit: Yes Status: Acute (3) Pneumonia Current Visit: Yes Status: Acute Assessment and plan: I do not feel that this is an actual pneumonia given the patients symptomatology. agree with Pulmonologies assessment. Antibiotics Discontinued yesterday. (4) Surgical wound, non healing Current Visit: Yes Status: Acute Assessment and plan: on wound vac (5) Hypertension Current Visit: Yes Status: Acute Assessment and plan: continue home meds. (6) Sleep apnea Current Visit: Yes Status: Acute Assessment and plan: BIPAP at night (7) Obesity Current Visit: Yes Status: Acute Assessment and plan: weight loss (8) Chronic hypoxemic respiratory failure Current Visit: Yes Status: Acute Assessment and plan: at home dose of 3L NC (9) COPD (chronic obstructive pulmonary disease) Current Visit: Yes Status: Acute Assessment and plan: continue bronchodialators and steroids. worse on todays exam We will increase steroids. (10) Emphysema lung Current Visit: Yes Status: Acute (11) DVT prophylaxis Current Visit: Yes Status: Acute Assessment and plan: Lovenox - Subjective Interval history: No major events overnight. Patient complains hat he is having more wheezing and more difficulty breathing this AM. He states that his pain is well controlled this AM. He states there was some streaking of blood on his stool this AM. He has no further complaints or concerns at this time. - Constitutional Vitals: Temp Pulse Resp BP Pulse Ox 98.4 F 91 18 138/77 95 02/04/17 14:50 02/04/17 14:50 02/04/17 16:19 02/04/17 16:28 02/04/17 16:19 General appearance: Present: A&O X 3, obese - Head Head exam: Present: atraumatic, normal inspection, normocephalic - Eye Eye exam: Present: PERRL, conjuntiva pink, sclera anicteric Pupils: Present: PERRL - Neck Neck exam general surgery: Present: supple, trachea midline. Absent: lymphadenopathy - Respiratory Respiratory exam: Present: CTAB, wheezes (Bilateral expiratory. Worse from yesterday. More diminished. ). Absent: accessory muscle use, rales, rhonchi - Cardiovascular Cardiovascular exam: Present: RRR, +S1, +S2. Absent: diastolic murmur, gallop, rubs, systolic murmur - GI/Abdominal GI/Abdominal exam: Present: normal bowel sounds, soft, no peritoneal signs. Absent: distended, tenderness Additional comments: wound vac in place. - Extremities Exam Extremities exam: Present: pedal edema (1+ to the mid lira. ), warm, radial pulses palpable and symetrical. Absent: calf tenderness, cyanotic Internal Medicine: Result - Labs CBC & Chem 7: 02/04/17 05:21 02/04/17 05:21 Labs: Short CBC 02/04/17 Range/Units 05:21 WBC 11.3 H (4.3-11.1) K/mcL Hgb 8.3 L (12.9-16.9) g/dL Hct 26.8 L (37.5-50.1) % Plt Count 373 (140-400) K/mcL Neutrophils # 9.1 H (1.6-8.9) K/mcL BMP 02/04/17 05:21 Sodium 142 Potassium 4.3 Chloride 109 Carbon Dioxide 24 BUN 21 Creatinine 0.96 Glucose 147 H Calcium 9.1 - ABG Interpretation ABG results: PT/INR, D-dimer PT 13.3 Seconds (9.4-12.1) H 02/02/17 01:32 - VTE Reasons for not Prescribing Prophylaxis: Medical contraindication Documentation of Mechanical Device: Graduated compression elastic hosiery Consult Discharge Plan - Plan Referrals: Martha Mckeon DO [Resident] - 02/15/17 4:00 pm <Donal Casas - Last Filed: 02/04/17 20:20> Date of Encounter: 02/04/17 - Constitutional Vitals: Temp Pulse Resp BP Pulse Ox 98.6 F 88 18 136/72 95 02/04/17 18:20 02/04/17 18:20 02/04/17 18:20 02/04/17 18:20 02/04/17 18:20 Internal Medicine: Result - Labs CBC & Chem 7: 02/04/17 05:21 02/04/17 05:21 Labs: Short CBC 02/04/17 Range/Units 05:21 WBC 11.3 H (4.3-11.1) K/mcL Hgb 8.3 L (12.9-16.9) g/dL Hct 26.8 L (37.5-50.1) % Plt Count 373 (140-400) K/mcL Neutrophils # 9.1 H (1.6-8.9) K/mcL BMP 02/04/17 05:21 Sodium 142 Potassium 4.3 Chloride 109 Carbon Dioxide 24 BUN 21 Creatinine 0.96 Glucose 147 H Calcium 9.1 - ABG Interpretation ABG results: PT/INR, D-dimer PT 13.3 Seconds (9.4-12.1) H 02/02/17 01:32 - Attending Attestation I examined this patient and my medical decision-making was reviewed with the Resident Physician, Dr. Jones. I agree with the documented findings, disposition and treatment plan as described except to the extent set forth below. Patient reports worsening shortness of breath and central substernal chest pain. He is in no acute distress awake alert oriented, speaking full sentences. Chest the chest is tender to palpation over the xiphoid. Lungs reveal bilateral expiratory wheezes. Increased Solu-Medrol to 60 mg every 6. Pulmonary consult. Inhaled albuterol Atrovent and Mucomyst. Pain control with Percocet.
[2017-02-04] MEDS: 0.9 % Sodium Chloride 1,000 ML IVC SCH (18:34)
[2017-02-04] MEDS: Sennosides/Docusate Sodium TABLET PO SCH (21:45)
[2017-02-04] MEDS: clonazePAM 1 MG TABLET PO PRN (21:45)
[2017-02-05] MEDS: Ipratropium/Albuterol Neb 3 ML IH SCH ×4 (03:52→22:19)
[2017-02-05] MEDS: Acetylcysteine 10% 2 ML INHSOL IH SCH ×4 (03:53→22:19)
[2017-02-05 04:09] LABS: Basophils % 0.3 %; Hematocrit 28.6 % (37.5-50.1); Hemoglobin 8.8 g/dL (12.9-16.9); Immature Granulocytes % 4.7 % (0-4); Immature Platelets 1.9 % (1.1-6.1); Lymphocytes # 0.8 K/mcL (0.6-4.6); Lymphocytes % 7.6 %; Mean Corpuscular HGB Conc 30.8 g/dL (31.6-35.5); Mean Corpuscular Hemoglobin 26.9 pg (28.0-33.3); Mean Corpuscular Volume 87.5 fL (83.0-100.0); Mean Platelet Volume 8.9 fL (9.4-12.4); Monocytes # 0.5 K/mcL (0.0-1.3); Monocytes % 4.8 %; Neutrophils # 8.7 K/mcL (1.6-8.9); Nucleated Red Blood Cells 0.3 /100 WBC (0); Platelet Count 453 K/mcL (140-400); Red Blood Count 3.27 M/mcL (4.19-5.50); Segmented Neutrophils % 82.6 %
[2017-02-05 04:29] LABS: BUN/Creatinine Ratio 23 (6-26); Blood Urea Nitrogen 25 mg/dL (8-26); Calcium 9.5 mg/dL (8.6-10.8); Carbon Dioxide 25 mEq/L (19-29); Chloride 109 mEq/L (98-109); Glucose 158 mg/dL (70-99); Magnesium 2.3 mg/dL (1.6-2.6); Osmolality,Calculated 300 (280-300); Potassium 4.9 mEq/L (3.5-4.5); Sodium 141 mEq/L (136-145); eGFR For African Americans > 60 (> 60); eGFR For Non-African Americans > 60 (> 60)
[2017-02-05] MEDS: MethylPREDNISolone 40 MG/ML VIAL IVP SCH ×2 (05:27→15:57)
[2017-02-05] MEDS: *HR* Enoxaparin 40 MG/0.4 ML SYRINGE SQ SCH (05:28)
[2017-02-05 09:05] LABS: BUN/Creatinine Ratio 26 (6-26); Blood Urea Nitrogen 24 mg/dL (8-26); Calcium 9.5 mg/dL (8.6-10.8); Carbon Dioxide 26 mEq/L (19-29); Chloride 108 mEq/L (98-109); Glucose 160 mg/dL (70-99); Osmolality,Calculated 297 (280-300); Potassium 4.8 mEq/L (3.5-4.5); Sodium 140 mEq/L (136-145); eGFR For African Americans > 60 (> 60); eGFR For Non-African Americans > 60 (> 60)
[2017-02-05] MEDS: Fluticasone Propionate Nasal 50 MCG/SPRAY BOTTLE NS SCH (09:54)
[2017-02-05] MEDS: Azelastine 0.1% Nasal Spray 30 ML BOTTLE NS SCH ×2 (09:54→21:40)
[2017-02-05] MEDS: *HR* OxyCODONE/APAP 10/325 TABLET PO PRN ×2 (10:00→17:02)
[2017-02-05] MEDS: Ondansetron 4 MG/2 ML VIAL IVP PRN ×3 (10:00→23:09)
--- NOTE | 2017-02-05 10:13 | General Surgery Progress Note ---
Date of Encounter: 02/06/17 Time of Encounter: 10:09 - Assessment and Plan (1) Surgical wound, non healing Status: Acute Currently being packed with Nugauze and being covered with 4x4 gauze daily. Continue with daily dressing change. No other new recommendations at this time. Will sign off. Please contact us if there are any questions or concerns. Qualifiers: Encounter type: subsequent encounter Qualified Code(s): T81.89XD - Other complications of procedures, not elsewhere classified, subsequent encounter Subjective Patient reports: other (Patient admits to soreness at the level of the incision. Mild nausea. Controlled with medication.) Objective Vital Signs - Last 8 Hours Temp Pulse Resp BP Pulse Ox 02/05/17 08:31 16 98 02/05/17 06:57 97.5 F L 66 16 156/88 97 02/05/17 04:02 97.4 F L 74 20 149/65 100 02/05/17 03:53 16 98 Intake and Output 02/04/17 02/05/17 02/05/17 23:59 07:59 15:59 Intake Total 1240 / 1240 0 / 0 Output Total 200 / 200 550 / 550 Balance 1040 / 1040 -550 / -550 0 / 0 Intake: IV Fluids 1000 / 1000 0.9 % Sodium Chloride 1, 1000 / 1000 000 ML @ 25 mls/hr IVC . Q24H [facility] Rx#:[id number] Oral 240 / 240 0 / 0 Output: Urine 200 / 200 550 / 550 Wound Drainage 0 / 0 Midline Abdomen 0 / 0 Other: Meal Dinner Patient refused breakfast Percent of Meal Consumed 100% Stool Consistency loose Stool Color Brown # Bowel Movement Diapers 1 Weight 126.099 kg Patient Weight 02/05/17 23:59 Weight 126.099 kg - General physical appearance well nourished, no distress - Abdomen Abdomen: Present: bowel sounds present, soft - Incision Incision: Present: intact (nugauze packing noted. No erythema along incision.) - Labs 02/06/17 02:37 02/06/17 02:37 Diabetes panel 02/05/17 02/05/17 Range/Units 03:40 08:32 Sodium 141 140 (136-145) mEq/L Potassium 4.9 H 4.8 H (3.5-4.5) mEq/L Chloride 109 108 (98-109) mEq/L Carbon Dioxide 25 26 (19-29) mEq/L BUN 25 24 (8-26) mg/dL Creatinine 1.10 0.92 (0.72-1.25) mg/dL Glucose 158 H 160 H (70-99) mg/dL Calcium 9.5 9.5 (8.6-10.8) mg/dL Calcium panel 02/05/17 02/05/17 Range/Units 03:40 08:32 Calcium 9.5 9.5 (8.6-10.8) mg/dL Pituitary panel 02/05/17 02/05/17 Range/Units 03:40 08:32 Sodium 141 140 (136-145) mEq/L Potassium 4.9 H 4.8 H (3.5-4.5) mEq/L Chloride 109 108 (98-109) mEq/L Carbon Dioxide 25 26 (19-29) mEq/L BUN 25 24 (8-26) mg/dL Creatinine 1.10 0.92 (0.72-1.25) mg/dL Glucose 158 H 160 H (70-99) mg/dL Calcium 9.5 9.5 (8.6-10.8) mg/dL Adrenal panel 02/05/17 02/05/17 Range/Units 03:40 08:32 Sodium 141 140 (136-145) mEq/L Potassium 4.9 H 4.8 H (3.5-4.5) mEq/L Chloride 109 108 (98-109) mEq/L Carbon Dioxide 25 26 (19-29) mEq/L BUN 25 24 (8-26) mg/dL Creatinine 1.10 0.92 (0.72-1.25) mg/dL Glucose 158 H 160 H (70-99) mg/dL Calcium 9.5 9.5 (8.6-10.8) mg/dL - VTE Reasons for not Prescribing Prophylaxis: Medical contraindication Documentation of Mechanical Device: Graduated compression elastic hosiery Consult Discharge Plan - Plan Referrals: Martha Mckeon DO [Resident] - 02/15/17 4:00 pm Prescriptions: Chair - Lift [LIFT CHAIR] 1 each .ROUTE AD #1 each Compr.stocking,Knee,Reg,X-Lrg [T.e.d. Anti-Embolism Stocking] 1 each MC DAILY # 1 each Gauze Bandage [Gauze Pads] 1 each TP DAILY #30 bandage OxyCODONE/APAP 10/325 [Percocet 10/325 MG] 1 each PO Q8H PRN #42 tablet PRN Reason: Pain PredniSONE 10 mg PO DAILY #90 tablet Sennosides/Docusate Sodium [Senna Plus] 2 each PO HS 30 Days Sodium Chloride [Mesalt] 1 each TP DAILY 30 Days
[2017-02-05] MEDS: Budesonide/Formoterol 160/4.5 MDI IH SCH ×2 (11:10→22:19)
[2017-02-05] MEDS: 0.9 % Sodium Chloride 1,000 ML IVC SCH (17:03)
[2017-02-05] MEDS ORDERED: MethylPREDNISolone 40 MG/ML VIAL IVP SCH (17:30)
--- NOTE | 2017-02-05 18:34 | Internal Med Progress Note ---
<Bryce Jones - Last Filed: 02/05/17 18:29> Date of Encounter: 02/05/17 Time of Encounter: 13:45 - Assessment and plan (1) GI bleed Current Visit: Yes Status: Acute Assessment and plan: Hg trending up likely hemorrhoidal only minimal streaking on stool this AM. Appreciate Surgeries input. (2) Recent major surgery Current Visit: Yes Status: Acute Assessment and plan: continue wound care per surgeries recommendations. (3) Pneumonia Current Visit: Yes Status: Acute Assessment and plan: I do not feel that this is an actual pneumonia given the patients symptomatology. He is still afebrile and has normal white count. agree with Pulmonologies assessment. Antibiotics Discontinued yesterday. (4) Surgical wound, non healing Current Visit: Yes Status: Acute Assessment and plan: Wound vac DC's Continue wound packing per surgery. (5) Hypertension Current Visit: Yes Status: Acute Assessment and plan: continue home meds. (6) Sleep apnea Current Visit: Yes Status: Acute Assessment and plan: BIPAP at night (7) Obesity Current Visit: Yes Status: Acute Assessment and plan: weight loss (8) Chronic hypoxemic respiratory failure Current Visit: Yes Status: Acute Assessment and plan: at home dose of 3L NC (9) COPD (chronic obstructive pulmonary disease) Current Visit: Yes Status: Acute Assessment and plan: continue bronchodialators and steroids. better on todays exam wean steroids. possible DC in Am. (10) Emphysema lung Current Visit: Yes Status: Acute (11) DVT prophylaxis Current Visit: Yes Status: Acute Assessment and plan: Lovenox - Subjective Interval history: No major events overnight. Patient states that his wheezing is improving. He states that he has had some bright laila blood that is streaking his stool this AM. He states that his pain is well controlled this AM. He has no further complaints or concerns at this time. - Constitutional Vitals: Temp Pulse Resp BP Pulse Ox 97.6 F 87 18 157/83 96 02/05/17 15:16 02/05/17 15:16 02/05/17 15:44 02/05/17 15:16 02/05/17 15:44 General appearance: Present: A&O X 3, obese - Head Head exam: Present: atraumatic, normal inspection, normocephalic - Eye Eye exam: Present: PERRL, conjuntiva pink, sclera anicteric Pupils: Present: PERRL - ENT ENT exam: Present: mucous membranes moist - Neck Neck exam general surgery: Present: supple, trachea midline. Absent: lymphadenopathy - Respiratory Respiratory exam: Present: CTAB, wheezes (bilateral expiratory). Absent: accessory muscle use, rales, rhonchi - GI/Abdominal GI/Abdominal exam: Present: normal bowel sounds, soft, no peritoneal signs. Absent: distended, tenderness Additional comments: wound well dressed and clean - Extremities Exam Extremities exam: Present: pedal edema, warm, radial pulses palpable and symetrical. Absent: calf tenderness, cyanotic - Skin Skin exam: Present: dry, intact Internal Medicine: Result - Labs CBC & Chem 7: 02/05/17 03:40 02/05/17 08:32 Labs: Short CBC 02/05/17 Range/Units 03:40 WBC 10.6 (4.3-11.1) K/mcL Hgb 8.8 L (12.9-16.9) g/dL Hct 28.6 L (37.5-50.1) % Plt Count 453 H (140-400) K/mcL Neutrophils # 8.7 (1.6-8.9) K/mcL BMP 02/05/17 02/05/17 03:40 08:32 Sodium 141 140 Potassium 4.9 H 4.8 H Chloride 109 108 Carbon Dioxide 25 26 BUN 25 24 Creatinine 1.10 0.92 Glucose 158 H 160 H Calcium 9.5 9.5 - ABG Interpretation ABG results: PT/INR, D-dimer PT 13.3 Seconds (9.4-12.1) H 02/02/17 01:32 - VTE Reasons for not Prescribing Prophylaxis: Medical contraindication Documentation of Mechanical Device: Graduated compression elastic hosiery Consult Discharge Plan - Plan Referrals: Martha Mckeon DO [Resident] - 02/15/17 4:00 pm <Donal Casas - Last Filed: 02/05/17 19:06> Date of Encounter: 02/05/17 - Constitutional Vitals: Temp Pulse Resp BP Pulse Ox 97.6 F 87 18 157/83 96 02/05/17 15:16 02/05/17 15:16 02/05/17 15:44 02/05/17 15:16 02/05/17 15:44 Internal Medicine: Result - Labs CBC & Chem 7: 02/05/17 03:40 02/05/17 08:32 Labs: Short CBC 02/05/17 Range/Units 03:40 WBC 10.6 (4.3-11.1) K/mcL Hgb 8.8 L (12.9-16.9) g/dL Hct 28.6 L (37.5-50.1) % Plt Count 453 H (140-400) K/mcL Neutrophils # 8.7 (1.6-8.9) K/mcL BMP 02/05/17 02/05/17 03:40 08:32 Sodium 141 140 Potassium 4.9 H 4.8 H Chloride 109 108 Carbon Dioxide 25 26 BUN 25 24 Creatinine 1.10 0.92 Glucose 158 H 160 H Calcium 9.5 9.5 - ABG Interpretation ABG results: PT/INR, D-dimer PT 13.3 Seconds (9.4-12.1) H 02/02/17 01:32 - Attending Attestation I examined this patient and my medical decision-making was reviewed with the Resident Physician, Dr. Jones. I agree with the documented findings, disposition and treatment plan as described except to the extent set forth below. We will encourage out of bed to chair and ambulation with walker. Continue physical therapy. Taper steroids. Follow-up with social work for discharge home needs versus short subacute rehabilitation placement. He appears in no acute distress, speaking full sentences. Lung exam really feels diminished breath sounds bilaterally with faint expiratory wheezes.
[2017-02-05] MEDS ORDERED: Mag Hydrox/Al Hydrox/Simeth 30 ML UDC PO PRN ×2 (20:34→21:21)
[2017-02-05] MEDS: clonazePAM 1 MG TABLET PO PRN (21:41)
[2017-02-05] MEDS: Sennosides/Docusate Sodium TABLET PO SCH (21:41)
[2017-02-06 02:53] LABS: Basophils % 0.2 %; Hematocrit 27.9 % (37.5-50.1); Hemoglobin 8.6 g/dL (12.9-16.9); Immature Granulocytes % 4.2 % (0-4); Mean Corpuscular HGB Conc 30.8 g/dL (31.6-35.5); Mean Corpuscular Volume 87.5 fL (83.0-100.0); Mean Platelet Volume 9.2 fL (9.4-12.4); Monocytes # 0.9 K/mcL (0.0-1.3); Monocytes % 8.2 %; Neutrophils # 8.5 K/mcL (1.6-8.9); Nucleated Red Blood Cells 0.3 /100 WBC (0); Platelet Count 372 K/mcL (140-400); Red Blood Count 3.19 M/mcL (4.19-5.50); Red Cell Distribution Width 15.9 % (11.5-14.5); Segmented Neutrophils % 78.4 %
[2017-02-06 03:04] LABS: BUN/Creatinine Ratio 26 (6-26); Blood Urea Nitrogen 27 mg/dL (8-26); Calcium 9.1 mg/dL (8.6-10.8); Carbon Dioxide 25 mEq/L (19-29); Chloride 107 mEq/L (98-109); Glucose 142 mg/dL (70-99); Osmolality,Calculated 298 (280-300); Potassium 4.3 mEq/L (3.5-4.5); Sodium 140 mEq/L (136-145); eGFR For African Americans > 60 (> 60); eGFR For Non-African Americans > 60 (> 60)
[2017-02-06] MEDS: Acetylcysteine 10% 2 ML INHSOL IH SCH ×2 (03:45→11:10)
[2017-02-06] MEDS: Ipratropium/Albuterol Neb 3 ML IH SCH ×2 (03:45→11:10)
[2017-02-06] MEDS ORDERED: MethylPREDNISolone 40 MG/ML VIAL IVP SCH (04:00)
[2017-02-06] MEDS: *HR* Enoxaparin 40 MG/0.4 ML SYRINGE SQ SCH (04:47)
[2017-02-06] MEDS: Fluticasone Propionate Nasal 50 MCG/SPRAY BOTTLE NS SCH (09:07)
[2017-02-06] MEDS: Azelastine 0.1% Nasal Spray 30 ML BOTTLE NS SCH (09:08)
[2017-02-06] MEDS: *HR* OxyCODONE/APAP 10/325 TABLET PO PRN (09:30)
[2017-02-06] MEDS: Ondansetron 4 MG/2 ML VIAL IVP PRN (09:30)
--- NOTE | 2017-02-06 09:54 | Discharge Summary ---
<KarenBryce - Last Filed: 02/06/17 09:38> Date of Encounter: 02/06/17 Time of Encounter: 09:38 - Discharge Diagnosis (1) GI bleed Status: Acute (2) Recent major surgery Status: Acute (3) Pneumonia Status: Acute (4) Surgical wound, non healing Status: Acute (5) Hypertension Status: Acute (6) Sleep apnea Status: Acute (7) Obesity Status: Acute (8) Chronic hypoxemic respiratory failure Status: Acute (9) COPD (chronic obstructive pulmonary disease) Status: Acute (10) Emphysema lung Status: Acute (11) DVT prophylaxis Status: Acute - Discharge Medications Prescriptions: Chair - Lift [LIFT CHAIR] 1 each .ROUTE AD #1 each Compr.stocking,Knee,Reg,X-Lrg [T.e.d. Anti-Embolism Stocking] 1 each MC DAILY # 1 each Gauze Bandage [Gauze Pads] 1 each TP DAILY #30 bandage OxyCODONE/APAP 10/325 [Percocet 10/325 MG] 1 each PO Q8H PRN #42 tablet PRN Reason: Pain PredniSONE 10 mg PO DAILY #90 tablet Sennosides/Docusate Sodium [Senna Plus] 2 each PO HS 30 Days Sodium Chloride [Mesalt] 1 each TP DAILY 30 Days Home Medications: Albuterol Sulfate [Albuterol Inhaler] 2 puff IH Q4HR PRN 03/16/16 [History] Azelastine 0.1% Nasal [place] [Astelin] 1 spray NS BID 03/16/16 [History] Budesonide/Formoterol 160/4.5 [Symbicort 160/4.5] 2 puff IH BIDR 03/16/16 [ History] ClonazePAM [Klonopin] 1 mg PO BID PRN 03/16/16 [History] Docusate [Colace] 300 mg PO BID PRN 03/16/16 [History] Ergocalciferol (VITAMIN D2) [Vitamin D] 400 unit PO DAILY 03/16/16 [History] Esomeprazole Magnesium [Nexium] 40 mg PO BID 03/16/16 [History] Fluticasone Propionate Nasal [Flonase] 2 spray NS DAILY 03/16/16 [History] Ketoconazole Shampoo [Nizoral Shampoo] 1 appl TP 3XW 03/16/16 [History] Psyllium Seed (with Sugar) [Metamucil Powder] 1 each PO BID 03/16/16 [History] Roflumilast [Daliresp] 500 mcg PO DAILY 03/16/16 [History] Sodium Chloride [[place] Saline] 1 spray NS BID PRN 03/16/16 [History] Montelukast [Singulair] 10 mg PO HS #30 tablet 09/30/16 [Rx] Metoclopramide [Reglan] 10 mg PO ACHS 11/03/16 [History] Umeclidinium [place] [Incruse Ellipta] 1 puff IH DAILY 11/03/16 [History] Oxygen 3 l .ROUTE AD 11/20/16 [History] Losartan [Cozaar] 25 mg PO DAILY #30 tablet 12/10/16 [Rx] Furosemide [Lasix] 40 mg PO BID #60 tablet 01/06/17 [Rx] GuaiFENesin ER [Mucinex] 600 mg PO BID PRN #0 tbbp.12hr 01/06/17 [Rx] Cetirizine HCl [Zyrtec] 10 mg PO DAILY PRN #0 01/27/17 [Rx] Magnesium Oxide [Mag-Ox] 400 mg PO DAILY #15 tablet 01/27/17 [Rx] Metoprolol [Lopressor] 25 mg PO BID #60 tablet 01/27/17 [Rx] Ondansetron ODT [Zofran ODT] 4 mg SL Q4HR PRN #30 tab.rapdis 01/27/17 [Rx] Potassium Chloride 20 meq PO DAILY #15 tab.er.prt 01/27/17 [Rx] Chair - Lift [LIFT CHAIR] 1 each .ROUTE AD #1 each 02/06/17 [Rx] Compr.stocking,Knee,Reg,X-Lrg [T.e.d. Anti-Embolism Stocking] 1 each MC DAILY # 1 each 02/06/17 [Rx] Gauze Bandage [Gauze Pads] 1 each TP DAILY #30 bandage 02/06/17 [Rx] OxyCODONE/APAP 10/325 [Percocet 10/325 MG] 1 each PO Q8H PRN #42 tablet [Rx] PredniSONE 10 mg PO DAILY #90 tablet 02/06/17 [Rx] Sennosides/Docusate Sodium [Senna Plus] 2 each PO HS 30 Days 02/06/17 [Rx] Sodium Chloride [Mesalt] 1 each TP DAILY 30 Days 02/06/17 [Rx] Allergies/Adverse Reactions: Allergies morphine Allergy (Verified 02/01/17 10:17) Difficulty Breathing sulfamethoxazole [From Bactrim] Allergy (Verified 02/01/17 10:17) Hives trimethoprim [From Bactrim] Allergy (Verified 02/01/17 10:17) Hives codeine Adverse Reaction (Verified 02/01/17 10:17) Nausea Date of admission: 02/01/17 17:04 Primary care physician: Bryce Madrid Consults: 02/01/17 17:08 Consult to Hospitalist [CONS] Routine Consulting Provider: Mishel Shaw Reason for Consult: end stage COPD Time Notified: 17:10 Call Completed: Yes 02/01/17 18:30 Consult to Compressor Station Chief Engineer [CONS] Routine Reason for SW Consult: Wound vac therapy, home health, possible need for Rehab/placement 02/01/17 20:29 Consult to Compressor Station Chief Engineer [CONS] Routine Reason for SW Consult: dc planning OT [Consult to Occupational Therapy] [CONS] Routine Comment: Evaluate, develop and implement POC PT [Consult to Physical Therapy] [CONS] Routine Comment: Evaluate, develop and implement POC 02/03/17 09:27 Consult to Pulmonology [CONS] Routine Consulting Provider: Arias Lambert Reason for Consult: Recurrent exacerbations of COPD. Call Completed: Yes Discharging clinician: Bryce Jones Anticipated date of discharge: 02/06/17 - Patient Status Disposition: Home Health Service Condition: Good Functional capacity at discharge: independent ambulation Overall status at discharge: patient is progressing back to baseline - Discharge Instructions Follow Up With: Martha Mckeon DO [Resident] - 02/15/17 4:00 pm - Diet and Activity Activity: as per physical therapy, increase activity as tolerated Diet: advance to your usual diet Hospital course: Mr. Herring is a 61 year old male was admitted to [facility] for GI bleeding. He had a recent Small bowel resection for SBO. He was seen by General Surgery. Bleeding scan was negative. Hg remained stable. He has had recent colonoscopy which was normal other than internal hemmorrhoids. He has only had streaking on the stool here at the hospital. He also had a questionable pneumonia on CT of the chest. Discussed with pulmonology. This likely represents scarring from previous PNA. We discontinued antibiotics and His white count remained nromal and he has been afebrile. He did have an exacerbation of his COPD. He was treated with Steroids and bronchodilators. He has had great improvement. His lung exam is markedly better. His Hg is stable. I will discharge him today and see him in the clinic on tuesday. I will discharge him on a steroid taper and will plan on continuing him on steroids chronically. - Time Spent with Patient Total time spent providing and/or coordinating discharge services: - Constitutional Vitals: Temp Pulse Resp BP Pulse Ox 97.7 F 63 18 166/95 97 02/06/17 06:33 02/06/17 06:33 02/06/17 06:33 02/06/17 06:33 02/06/17 06:33 General appearance: Present: A&O X 3, obese - Head Head exam: Present: atraumatic, normal inspection, normocephalic - Eye Eye exam: Present: PERRL, conjuntiva pink, sclera anicteric Pupils: Present: PERRL - ENT ENT exam: Present: mucous membranes moist - Neck Neck exam general surgery: Present: supple, trachea midline. Absent: lymphadenopathy - Respiratory Respiratory exam: Present: CTAB. Absent: accessory muscle use, rales, rhonchi, wheezes - Cardiovascular Cardiovascular exam: Present: RRR, +S1, +S2. Absent: diastolic murmur, gallop, rubs, systolic murmur - GI/Abdominal GI/Abdominal exam: Present: normal bowel sounds, soft, no peritoneal signs. Absent: distended, tenderness Additional comments: wound is clean and well dressed - Extremities Exam Extremities exam: Present: warm, radial pulses palpable and symetrical. Absent : calf tenderness, cyanotic, pedal edema - Skin Skin exam: Present: dry, intact - VTE Reasons for not Prescribing Prophylaxis: Medical contraindication Documentation of Mechanical Device: Graduated compression elastic hosiery <Donal Casas - Last Filed: 02/06/17 16:43> Date of Encounter: 02/06/17 Date of admission: 02/01/17 17:04 Primary care physician: Bryce Madrid Consults: 02/01/17 17:08 Consult to Hospitalist [CONS] Routine Consulting Provider: Mishel Shaw Reason for Consult: end stage COPD Time Notified: 17:10 Call Completed: Yes 02/01/17 18:30 Consult to Compressor Station Chief Engineer [CONS] Routine Reason for SW Consult: Wound vac therapy, home health, possible need for Rehab/placement 02/01/17 20:29 Consult to Compressor Station Chief Engineer [CONS] Routine Reason for SW Consult: dc planning OT [Consult to Occupational Therapy] [CONS] Routine Comment: Evaluate, develop and implement POC PT [Consult to Physical Therapy] [CONS] Routine Comment: Evaluate, develop and implement POC 02/03/17 09:27 Consult to Pulmonology [CONS] Routine Consulting Provider: Arias Lambert Reason for Consult: Recurrent exacerbations of COPD. Call Completed: Yes Hospital course: Mr. Herring is a 61 year old male - Time Spent with Patient Total time spent providing and/or coordinating discharge services: - Constitutional Vitals: Temp Pulse Resp BP Pulse Ox 97.6 F 73 18 175/84 97 02/06/17 11:22 02/06/17 11:22 02/06/17 11:22 02/06/17 11:22 02/06/17 11:22 - Attending Attestation I examined this patient and my medical decision-making was reviewed with the Resident Physician, Dr. Jones. I agree with the documented findings, disposition and treatment plan as described except to the extent set forth below. Patient appears in no acute distress. Speaking full sentences. Heart regular rhythm and rhythm S1-S2 no murmurs. Lungs clear to auscultation bilaterally. Abdomen obese soft nontender nondistended. Plan we will discharge patient home on a slow steroid taper with prednisone. Follow-up with primary care physician. Home health and home physical therapy.
--- NOTE | 2017-02-06 10:05 | Physician Discharge Referral ---
Home Health/Hosp Referral Info Transfer to: Home Health Provider in Charge Post Discharge: PCP (Bryce Jones D.O.) - Diagnosis (1) GI bleed Status: Acute (2) Recent major surgery Status: Acute (3) Pneumonia Status: Acute (4) Surgical wound, non healing Status: Acute (5) Hypertension Status: Acute (6) Sleep apnea Status: Acute (7) Obesity Status: Acute (8) Chronic hypoxemic respiratory failure Status: Acute (9) COPD (chronic obstructive pulmonary disease) Status: Acute (10) Emphysema lung Status: Acute (11) DVT prophylaxis Status: Acute - Respiratory Orders Oxygen / L per min (3L via Nasal [place]) Smoking Cessation: Smoking cessation has been advised. For more information, call the [employer] Tobacco Quit Line at 3-956-IEMV-NOW. - Dressing/Wound Care Site: infraumbilical Type of Dressing/Treatments w/Frequency: change dressing daily. Cleanse with soap and water. Pack wound with [place] ribbon then cover with a 4X4 - Diet/Nutrition Diet/Nutrition Orders: No Added Salt (ASHLEY), Cardiac - Activity Activity Orders: Ambulate (per Physical therapy) - Services Needed Following services are medically necessary services: Nursing, Home Health Aide, Physical Therapy, Occupational Therapy - Transfer Medications Prescriptions: Chair - Lift [LIFT CHAIR] 1 each .ROUTE AD #1 each Compr.stocking,Knee,Reg,X-Lrg [T.e.d. Anti-Embolism Stocking] 1 each MC DAILY # 1 each Gauze Bandage [Gauze Pads] 1 each TP DAILY #30 bandage OxyCODONE/APAP 10/325 [Percocet 10/325 MG] 1 each PO Q8H PRN #42 tablet PRN Reason: Pain PredniSONE 10 mg PO DAILY #90 tablet Sennosides/Docusate Sodium [Senna Plus] 2 each PO HS 30 Days Sodium Chloride [Mesalt] 1 each TP DAILY 30 Days Home Medications: Albuterol Sulfate [Albuterol Inhaler] 2 puff IH Q4HR PRN 03/16/16 [History] Azelastine 0.1% Nasal [place] [Astelin] 1 spray NS BID 03/16/16 [History] Budesonide/Formoterol 160/4.5 [Symbicort 160/4.5] 2 puff IH BIDR 03/16/16 [ History] ClonazePAM [Klonopin] 1 mg PO BID PRN 03/16/16 [History] Docusate [Colace] 300 mg PO BID PRN 03/16/16 [History] Ergocalciferol (VITAMIN D2) [Vitamin D] 400 unit PO DAILY 03/16/16 [History] Esomeprazole Magnesium [Nexium] 40 mg PO BID 03/16/16 [History] Fluticasone Propionate Nasal [Flonase] 2 spray NS DAILY 03/16/16 [History] Ketoconazole Shampoo [Nizoral Shampoo] 1 appl TP 3XW 03/16/16 [History] Psyllium Seed (with Sugar) [Metamucil Powder] 1 each PO BID 03/16/16 [History] Roflumilast [Daliresp] 500 mcg PO DAILY 03/16/16 [History] Sodium Chloride [[place] Saline] 1 spray NS BID PRN 03/16/16 [History] Montelukast [Singulair] 10 mg PO HS #30 tablet 09/30/16 [Rx] Metoclopramide [Reglan] 10 mg PO ACHS 11/03/16 [History] Umeclidinium [place] [Incruse Ellipta] 1 puff IH DAILY 11/03/16 [History] Oxygen 3 l .ROUTE AD 11/20/16 [History] Losartan [Cozaar] 25 mg PO DAILY #30 tablet 12/10/16 [Rx] Furosemide [Lasix] 40 mg PO BID #60 tablet 01/06/17 [Rx] GuaiFENesin ER [Mucinex] 600 mg PO BID PRN #0 tbbp.12hr 01/06/17 [Rx] Cetirizine HCl [Zyrtec] 10 mg PO DAILY PRN #0 01/27/17 [Rx] Magnesium Oxide [Mag-Ox] 400 mg PO DAILY #15 tablet 01/27/17 [Rx] Metoprolol [Lopressor] 25 mg PO BID #60 tablet 01/27/17 [Rx] Ondansetron ODT [Zofran ODT] 4 mg SL Q4HR PRN #30 tab.rapdis 01/27/17 [Rx] Potassium Chloride 20 meq PO DAILY #15 tab.er.prt 01/27/17 [Rx] Chair - Lift [LIFT CHAIR] 1 each .ROUTE AD #1 each 02/06/17 [Rx] Compr.stocking,Knee,Reg,X-Lrg [T.e.d. Anti-Embolism Stocking] 1 each MC DAILY # 1 each 02/06/17 [Rx] Gauze Bandage [Gauze Pads] 1 each TP DAILY #30 bandage 02/06/17 [Rx] OxyCODONE/APAP 10/325 [Percocet 10/325 MG] 1 each PO Q8H PRN #42 tablet [Rx] PredniSONE 10 mg PO DAILY #90 tablet 02/06/17 [Rx] Sennosides/Docusate Sodium [Senna Plus] 2 each PO HS 30 Days 02/06/17 [Rx] Sodium Chloride [Mesalt] 1 each TP DAILY 30 Days 02/06/17 [Rx] Allergies/Adverse Reactions: Allergies morphine Allergy (Verified 02/01/17 10:17) Difficulty Breathing sulfamethoxazole [From Bactrim] Allergy (Verified 02/01/17 10:17) Hives trimethoprim [From Bactrim] Allergy (Verified 02/01/17 10:17) Hives codeine Adverse Reaction (Verified 02/01/17 10:17) Nausea Certification: Further, I certify that my clinical findings support that this patient is homebound (i.e. absences from home require considerable and taxing effort and are for medical reasons or bahai services or infrequently or short duration when for other reasons) because: Homebound Reason: Leaving home requires considerable and taxing effort due to condition, Severity of cardiac or pulmonary status limits activity tolerance Attestation: My signature below is to certify that this patient is under my care and that I, or nurse practitioner, or a physician's general assistant working with me, has a face-to -face encounter with this patient.
[2017-02-06] MEDS: Budesonide/Formoterol 160/4.5 MDI IH SCH (11:10)
[2017-02-06 11:24] VITALS: BP 175/84
== END 2017-02-06 13:38 | disposition home health service (06) | DRG 378 ==
LOC: 3ANU 10:09 → EMEROO 10:09 → 3ANU 15:00
PROVIDERS: ADMIT Internal Medicine; ATTEND Internal Medicine

== ENCOUNTER 2017-07-05 08:23 | Inpatient (IN) ==
[2017-07-05] MEDS ORDERED: Ipratropium/Albuterol Neb 3 ML IH ONE (08:25)
[2017-07-05] MEDS ORDERED: methylPREDNISolone 125 MG/2 ML VIAL IVP ONE (08:25)
[2017-07-05] MEDS ORDERED: Levofloxacin 750 MG/150 ML 750 MG/150 ML BAG IVPB SCH (09:00)
--- NOTE | 2017-07-05 09:03 | Emergency Department Note ---
Disposition Clinical Impression: Acute exacerbation of chronic obstructive airways disease Pneumonia Qualifiers: Pneumonia type: due to unspecified organism Laterality: unspecified laterality Lung location: unspecified part of lung Qualified Code(s): J18.9 - Pneumonia, unspecified organism Disposition: Admitted As Inpatient Condition: Good Time of Disposition: 13:00 SOB HPI - General Chief Complaint: ED Shortness of Breath/Dyspnea Stated Complaint: SHUBHAM Time Seen by Provider: 07/05/17 08:25 Source: EMS Limitations: no limitations Nursing Notes Reviewed: Yes Vital Signs Reviewed: Yes - History of Present Illness 62 year old male presents to the ED via EMS for complaiings of COPD excerbation and states that he wears 3LNC at home at all times and has increased his rewuirements at home since Satuday. Emilys sttes that he has had a prodcuctive green/yellow cough and subjective feverss at home. Emily states that he also has had to increased his breathing treatment requirements at home as well. PAtient states that he has not been around any other sick indicuals with simliar symptms. He denies chest pain and states taht his lungs feels tight. He recieved one breathing treatment per EMS befoe arrival. Not in acute distress. - Related Data Home Medications Medication Instructions Recorded Confirmed Albuterol Sulfate [Albuterol 2 puff IH Q4HR PRN 03/16/16 07/05/17 Inhaler] Azelastine 0.1% Nasal [place] 1 spray NS BID 03/16/16 07/05/17 [Astelin] Budesonide/Formoterol 160/4.5 2 puff IH BIDR 03/16/16 07/05/17 [Symbicort 160/4.5] Ergocalciferol (VITAMIN D2) 400 unit PO DAILY 03/16/16 07/05/17 [Vitamin D] Esomeprazole Magnesium [Nexium] 40 mg PO BID 03/16/16 07/05/17 Fluticasone Propionate Nasal 2 spray NS DAILY 03/16/16 07/05/17 [Flonase] Ketoconazole Shampoo [Nizoral 1 appl TP 3XW 03/16/16 07/05/17 Shampoo] Psyllium Seed (with Sugar) 1 each PO BID 03/16/16 07/05/17 [Metamucil Powder] Roflumilast [Daliresp] 500 mcg PO DAILY 03/16/16 07/05/17 Sodium Chloride [[place] Saline] 1 spray NS BID PRN 03/16/16 07/05/17 Metoclopramide [Reglan] 10 mg PO ACHS 11/03/16 07/05/17 Umeclidinium [place] [Incruse 1 puff IH DAILY 11/03/16 07/05/17 Ellipta] Oxygen 3 l .ROUTE AD 11/20/16 07/05/17 Metoprolol [Lopressor] 25 mg PO DAILY 07/05/17 07/05/17 predniSONE [PredniSONE] 5 mg PO DAILY 07/05/17 07/05/17 Previous Rx's Medication Instructions Recorded Montelukast [Singulair] 10 mg PO HS #30 tablet 09/30/16 Losartan [Cozaar] 25 mg PO DAILY #30 tablet 12/10/16 Furosemide [Lasix] 40 mg PO BID #60 tablet 01/06/17 Cetirizine HCl [Zyrtec] 10 mg PO DAILY PRN #0 01/27/17 Magnesium Oxide [Mag-Ox] 400 mg PO DAILY #15 tablet 01/27/17 Potassium Chloride 20 meq PO DAILY #15 tab.er.prt 01/27/17 OxyCODONE/APAP 10/325 [Percocet 1 each PO Q8H PRN #42 tablet 02/06/17 10/325 MG] Sennosides/Docusate Sodium [Senna 2 each PO HS 30 Days tablet 02/06/17 Plus] Sodium Chloride [Mesalt] 1 each TP DAILY 30 Days bandage 02/06/17 Allergies Allergy/AdvReac Type Severity Reaction Status Date / Time morphine Allergy Difficulty Verified 07/05/17 08:24 Breathing sulfamethoxazole Allergy Hives Verified 07/05/17 08:24 [From Bactrim] trimethoprim [From Bactrim] Allergy Hives Verified 07/05/17 08:24 codeine AdvReac Nausea Verified 07/05/17 08:24 Constitutional: Reports: fever, chills, weakness. Denies: weight change Eyes: Denies: eye pain, eye discharge, vision change ENT ED: Denies: ear pain, throat pain, dental pain, hearing loss, epistaxis, congestion, dysphagia Cardiovascular: Denies: chest pain, palpitations, dyspnea on exertion, edema, syncope Respiratory: Reports: cough, dyspnea, wheezes. Denies: hemoptysis, stridor Gastrointestinal: Denies: abdominal pain, nausea, vomiting, diarrhea, constipation, hematemesis, melena, hematochezia Genitourinary: Denies: urgency, dysuria, frequency, hematuria Musculoskeletal: Denies: back pain, neck pain, arthralgia, myalgia Integumentary: Denies: rash, abrasion, lesions Neurological: Denies: headache, weakness, numbness, paresthesias, confusion, abnormal gait, vertigo Psychiatric: Denies: anxiety, depression, suicidal thoughts, homicidal thoughts , auditory hallucinations, visual hallucinations Endocrine: Denies: fatigue Hematological/Lymphatic: Denies: easy bleeding, easy bruising Allergic/Immunologic: Denies: facial swelling, urticaria Past Medical History - Past Medical History Medical history: Reports: cardiomyopathy, COPD, diabetes, GERD, hypertension, other Surgical history: Reports: cataract, herniorrhaphy, other Psychiatric history: Reports: anxiety, depression - Social History Smoking Status: Former smoker Smokeless Tobacco Status: No Alcohol use: Reports: rarely Drug use: Reports: none Physical Exam - General Limitations: no limitations General appearance: alert, in no apparent distress, obese - Head Head exam: atraumatic, normocephalic, normal inspection - Eye Eye exam: Present: normal appearance, PERRL, EOMI - Expanded Eye Exam Pupils: Left: reactive - ENT ENT exam: normal exam, normal oropharynx, mucous membranes moist - Expanded ENT Exam External ear exam: Present: normal external inspection Mouth exam: Present: normal external inspection Teeth exam: Present: normal inspection Throat exam: Present: normal inspection - Neck Neck exam: Present: normal inspection, full ROM, trachea midline - Chest Chest inspection: Present: normal inspection, symmetric chest wall rise - Respiratory Respiratory exam: Present: wheezes - Cardiovascular Cardiovascular exam: Present: regular rate, normal rhythm, normal heart sounds - Abdominal Exam Abdominal exam: Present: soft, Non-Tender. Absent: tenderness, distention, guarding, rebound, rigidity - Extremities Exam Extremities exam: Present: normal inspection, full ROM. Absent: tenderness, pedal edema - Expanded Upper Extremity Exam Shoulder exam: Present: normal inspection, full ROM Arm exam: Present: normal inspection, full ROM Elbow exam: Present: normal inspection, full ROM Forearm/Wrist exam: Present: normal inspection, full ROM Hand exam: Present: normal inspection, full ROM Vascular exam: Normal: capillary refill, radial pulse - Expanded Lower Extremity Exam Hip/Pelvis exam: Present: normal inspection, full ROM Upper leg exam: Present: normal inspection, full ROM Knee exam: Present: normal inspection, full ROM Lower leg exam: Present: normal inspection, full ROM Ankle exam: Present: normal inspection, full ROM Foot/toe exam: Present: normal inspection, full ROM Neurovascular/Tendon exam: Absent: motor deficit, sensory deficit, tendon deficit - Back Exam Back exam: Present: normal inspection, full ROM. Absent: tenderness - Neurological Exam Neurological exam: Present: alert, oriented X3 - Expanded Neurological Exam Patient oriented to: Present: person, place, time Coma Scale Eye Opening: Spontaneous Coma Scale Motor Response: Obeys Commands Coma Scale Verbal Response: Oriented Coma Scale Total: 15 - Psychiatric Psychiatric exam: Present: normal affect, normal mood - Skin Skin exam: Present: warm, dry, intact, normal color Course Course Narrative: we will do dyspnea workup and re-eval - Consultations Consultation #1: discussed case with Dr aguilar and danuta cabrera to accept to service . Time: 14:56 Vital Signs Temperature 98.4 F 07/05/17 08:30 Pulse Rate 97 07/05/17 08:30 Respiratory Rate 22 07/05/17 08:30 Blood Pressure 141/53 07/05/17 08:30 O2 Sat by Pulse Oximetry 97 07/05/17 08:30 Temperature 98.0 F 07/05/17 11:19 Pulse Rate 93 07/05/17 11:19 Respiratory Rate 18 07/05/17 11:37 Blood Pressure 155/72 07/05/17 11:19 O2 Sat by Pulse Oximetry 95 07/05/17 11:37 Oxygen Delivery Oxygen Delivery Nasal Cannula Shortness of Breath/Dyspnea - Medical Records Medical records reviewed: Yes I reviewed the patient's medical records. - Lab Data Lab results reviewed: Yes I reviewed the patient's lab results. Result diagrams: 07/05/17 08:55 07/05/17 08:55 Lab Results 07/05/17 07/05/17 07/05/17 Range/Units 08:55 08:55 08:55 WBC (4.3-11.1) K/mcL RBC (4.19-5.50) M/mcL Hgb (12.9-16.9) g/dL Hct (37.5-50.1) % MCV (83.0-100.0) fL MCH (28.0-33.3) pg MCHC (31.6-35.5) g/dL RDW (11.5-14.5) % Plt Count (140-400) K/mcL MPV (9.4-12.4) fL Immature Gran % (0-4) % Seg Neutrophils % % Lymphocytes % % Monocytes % % Eosinophils % % Basophils % % Neutrophils # (1.6-8.9) K/mcL Lymphocytes # (0.6-4.6) K/mcL Monocytes # (0.0-1.3) K/mcL Eosinophils # (0.0-0.6) K/mcL Basophils # (0.0-0.2) K/mcL PT 13.4 H (9.4-12.1) Seconds INR 1.2 APTT 42.0 H (26.0-36.0) Seconds Sodium (136-145) mEq/L Potassium (3.5-4.5) mEq/L Chloride (98-109) mEq/L Carbon Dioxide (19-29) mEq/L BUN (8-26) mg/dL Creatinine (0.72-1.25) mg/dL Est GFR ( Amer) (> 60) Est GFR (Non-Af Amer) (> 60) BUN/Creatinine Ratio (6-26) Glucose (70-99) mg/dL Calculated Osmolality (280-300) Lactic Acid (0.5-2.2) mmol/L Calcium (8.6-10.8) mg/dL Total Bilirubin 0.7 (0.2-1.2) mg/dL Direct Bilirubin 0.3 (0.0-0.5) mg/dL Indirect Bilirubin 0.4 (0.0-1.2) mg/dL AST 13 (5-34) Units/L ALT 13 (0-55) Units/L Alkaline Phosphatase 100 (38-126) Units/L Troponin I (0-0.03) ng/mL B-Natriuretic Peptide 11 (0-100) pg/mL Serum Total Protein 8.0 (6.0-8.3) g/dL Albumin 3.4 L (3.5-5.0) g/dL Globulin 4.6 H (2.4-3.5) g/dL Albumin/Globulin Ratio 0.7 L (1.1-2.2) Lipase 19 (8-78) Units/L 07/05/17 07/05/17 07/05/17 Range/Units 08:55 08:55 08:55 WBC 20.0 H (4.3-11.1) K/mcL RBC 4.34 (4.19-5.50) M/mcL Hgb 10.9 L (12.9-16.9) g/dL Hct 34.9 L (37.5-50.1) % MCV 80.4 L (83.0-100.0) fL MCH 25.1 L (28.0-33.3) pg MCHC 31.2 L (31.6-35.5) g/dL RDW 15.9 H (11.5-14.5) % Plt Count 351 (140-400) K/mcL MPV 8.7 L (9.4-12.4) fL Immature Gran % 0.6 (0-4) % Seg Neutrophils % 87.6 % Lymphocytes % 4.6 % Monocytes % 5.9 % Eosinophils % 1.0 % Basophils % 0.3 % Neutrophils # 17.5 H (1.6-8.9) K/mcL Lymphocytes # 0.9 (0.6-4.6) K/mcL Monocytes # 1.2 (0.0-1.3) K/mcL Eosinophils # 0.2 (0.0-0.6) K/mcL Basophils # 0.1 (0.0-0.2) K/mcL PT (9.4-12.1) Seconds INR APTT (26.0-36.0) Seconds Sodium 137 (136-145) mEq/L Potassium 4.1 (3.5-4.5) mEq/L Chloride 103 (98-109) mEq/L Carbon Dioxide 23 (19-29) mEq/L BUN 14 (8-26) mg/dL Creatinine 1.03 (0.72-1.25) mg/dL Est GFR ( Amer) > 60 (> 60) Est GFR (Non-Af Amer) > 60 (> 60) BUN/Creatinine Ratio 14 (6-26) Glucose 129 H (70-99) mg/dL Calculated Osmolality 286 (280-300) Lactic Acid (0.5-2.2) mmol/L Calcium 9.6 (8.6-10.8) mg/dL Total Bilirubin (0.2-1.2) mg/dL Direct Bilirubin (0.0-0.5) mg/dL Indirect Bilirubin (0.0-1.2) mg/dL AST (5-34) Units/L ALT (0-55) Units/L Alkaline Phosphatase (38-126) Units/L Troponin I 0.01 (0-0.03) ng/mL B-Natriuretic Peptide (0-100) pg/mL Serum Total Protein (6.0-8.3) g/dL Albumin (3.5-5.0) g/dL Globulin (2.4-3.5) g/dL Albumin/Globulin Ratio (1.1-2.2) Lipase (8-78) Units/L 09//17 Range/Units 08:55 WBC (4.3-11.1) K/mcL RBC (4.19-5.50) M/mcL Hgb (12.9-16.9) g/dL Hct (37.5-50.1) % MCV (83.0-100.0) fL MCH (28.0-33.3) pg MCHC (31.6-35.5) g/dL RDW (11.5-14.5) % Plt Count (140-400) K/mcL MPV (9.4-12.4) fL Immature Gran % (0-4) % Seg Neutrophils % % Lymphocytes % % Monocytes % % Eosinophils % % Basophils % % Neutrophils # (1.6-8.9) K/mcL Lymphocytes # (0.6-4.6) K/mcL Monocytes # (0.0-1.3) K/mcL Eosinophils # (0.0-0.6) K/mcL Basophils # (0.0-0.2) K/mcL PT (9.4-12.1) Seconds INR APTT (26.0-36.0) Seconds Sodium (136-145) mEq/L Potassium (3.5-4.5) mEq/L Chloride (98-109) mEq/L Carbon Dioxide (19-29) mEq/L BUN (8-26) mg/dL Creatinine (0.72-1.25) mg/dL Est GFR ( Amer) (> 60) Est GFR (Non-Af Amer) (> 60) BUN/Creatinine Ratio (6-26) Glucose (70-99) mg/dL Calculated Osmolality (280-300) Lactic Acid 1.6 (0.5-2.2) mmol/L Calcium (8.6-10.8) mg/dL Total Bilirubin (0.2-1.2) mg/dL Direct Bilirubin (0.0-0.5) mg/dL Indirect Bilirubin (0.0-1.2) mg/dL AST (5-34) Units/L ALT (0-55) Units/L Alkaline Phosphatase (38-126) Units/L Troponin I (0-0.03) ng/mL B-Natriuretic Peptide (0-100) pg/mL Serum Total Protein (6.0-8.3) g/dL Albumin (3.5-5.0) g/dL Globulin (2.4-3.5) g/dL Albumin/Globulin Ratio (1.1-2.2) Lipase (8-78) Units/L - Radiology Data Radiology results reviewed: Yes I reviewed the patient's radiology results. - EKG Data EKG attestation: Yes I reviewed and interpreted this EKG. EKG results narrative: NSR with rate of 95. NO STEMI. normal intervals. no mcbride from . [id number]
[2017-07-05 09:06] LABS: Basophils # 0.1 K/mcL (0.0-0.2); Basophils % 0.3 %; Eosinophils # 0.2 K/mcL (0.0-0.6); Hematocrit 34.9 % (37.5-50.1); Hemoglobin 10.9 g/dL (12.9-16.9); Immature Granulocytes % 0.6 % (0-4); Lymphocytes # 0.9 K/mcL (0.6-4.6); Lymphocytes % 4.6 %; Mean Corpuscular HGB Conc 31.2 g/dL (31.6-35.5); Mean Corpuscular Hemoglobin 25.1 pg (28.0-33.3); Mean Corpuscular Volume 80.4 fL (83.0-100.0); Mean Platelet Volume 8.7 fL (9.4-12.4); Monocytes # 1.2 K/mcL (0.0-1.3); Monocytes % 5.9 %; Neutrophils # 17.5 K/mcL (1.6-8.9); Platelet Count 351 K/mcL (140-400); Red Blood Count 4.34 M/mcL (4.19-5.50); Red Cell Distribution Width 15.9 % (11.5-14.5); Segmented Neutrophils % 87.6 %
[2017-07-05 09:15] LABS: INR 1.2; Prothrombin Time 13.4 Seconds (9.4-12.1)
[2017-07-05 09:19] LABS: BUN/Creatinine Ratio 14 (6-26); Blood Urea Nitrogen 14 mg/dL (8-26); Calcium 9.6 mg/dL (8.6-10.8); Carbon Dioxide 23 mEq/L (19-29); Chloride 103 mEq/L (98-109); Glucose 129 mg/dL (70-99); Osmolality,Calculated 286 (280-300); Potassium 4.1 mEq/L (3.5-4.5); Sodium 137 mEq/L (136-145); eGFR For African Americans > 60 (> 60); eGFR For Non-African Americans > 60 (> 60)
[2017-07-05 09:21] LABS: Albumin 3.4 g/dL (3.5-5.0); Albumin/Globulin Ratio 0.7 (1.1-2.2); Bilirubin,Direct 0.3 mg/dL (0.0-0.5); Bilirubin,Indirect 0.4 mg/dL (0.0-1.2); Bilirubin,Total 0.7 mg/dL (0.2-1.2); Globulin 4.6 g/dL (2.4-3.5)
[2017-07-05] MEDS ORDERED: Acetaminophen 325 MG TABLET PO PRN (10:44)
[2017-07-05] MEDS ORDERED: Ondansetron 4 MG/2 ML VIAL IVP PRN (10:44)
[2017-07-05] MEDS ORDERED: Naloxone 0.4 MG/ML INJ IVP PRN (10:44)
[2017-07-05] MEDS ORDERED: Dextrose Gel 15 GM PO PRN ×2 (10:54)
[2017-07-05] MEDS ORDERED: D5% in Water 1,000 ML IVC PRN (10:54)
[2017-07-05] MEDS ORDERED: *HR* Dextrose 50 % in Water (Syg) 50 ML SYRINGE IVP PRN (10:54)
[2017-07-05] MEDS ORDERED: Albuterol 2.5 MG/3 ML NEBULIZER IH PRN (10:54)
--- NOTE | 2017-07-05 11:01 | Internal Med History&Physical ---
<Charito Ocasio - Last Filed: 07/05/17 11:13> Date of Encounter: 07/05/17 Time of Encounter: 10:58 Assessment and Plan (1) Pneumonia Current visit: Yes Status: Acute Patient has been experiencing subjective fevers change in color of phlegm increased shortness of breath despite the use of oxygen. Chest x-ray shows infiltrate right middle lobe atelectasis versus pneumonia. We will continue with Levaquin 2 obtain sputum culture 3 continue with Tylenol for fevers Oxygen as needed maintain SPO2 greater than 92% 4 bronchodilators Qualifiers: Pneumonia type: due to unspecified organism Laterality: right Lung location: middle lobe of lung Qualified Code(s): J18.1 - Lobar pneumonia, unspecified organism (2) COPD exacerbation Current visit: Yes Status: Acute 1 patient has been experiencing increasing shortness of breath as well as wheezing despite the use of oxygen as well as breathing treatments. He does have scattered inspiratory and expiratory wheezes. He sounds tight. We will continue with breathing treatments 2 no continue with steroid taper 3 oxygen as needed to maintain SPO2 greater than 92% (3) HTN (hypertension) Current visit: No Status: Chronic 1 as a control will continue with home medications Qualifiers: Hypertension type: essential hypertension Qualified Code(s): I10 - Essential (primary) hypertension (4) Borderline diabetes Current visit: No Status: Chronic Patient states that he has a borderline diabetic diet controlled. We will check blood sugars before meals and at bedtime add sliding scale insulin as needed Diabetic diet (5) Sleep apnea Current visit: No Status: Acute We will continue with BiPAP at night Qualifiers: Sleep apnea type: unspecified type Qualified Code(s): G47.30 - Sleep apnea , unspecified (6) DVT prophylaxis Current visit: No Status: Acute [facility] Internal Medicine - H&P: HPI Chief complaint: SOB Admitted From: Emergency Dept Plans for Post Hospital Care: Home History of present illness: Mr. Herring is a 62 year old male hospital with history of COPD oxygen dependent and VANI with BiPAP cardiomyopathy diabetes GERD hypertension. Continue the patient he has been expressing increasing shortness of breath since Tuesday despite the use of his oxygen. She was of breath is worse upon exertion he has had some difficulty completing his ADLs due to his shortness of breath. He also has been experiencing a productive green/yellow cough as well as subjective fevers at home. He has been taking Tylenol which has helped with his fevers. He also has been taking breathing treatments however this has not helped his shortness of breath. He has had a tightness across his chest which is worse upon coughing He denies any recent sick contacts. He continued to experience symptoms and called nurse navigator yesterday who advised him if symptoms continue to go to ER. This a.m. he continued to have shortness of breath was unable to perform his ADLs and called EMS. Upon arrival he did give him a breathing treatment which did improve his rest were stable. According to ER records upon presentation the patient's oxygen saturation was 97% on 3 L he was not tachycardic and afebrile. Lab work did reveal elevated white count at 20,000 chemistry unremarkable lactate was 1.6 his troponin 0.01. Chest x-ray did demonstrate an infiltrate in right middle lobe atelectasis versus pneumonia. He was given breathing treatments and Solu-Medrol and Levaquin. He has been admitted for further workup and evaluation. Ayo patient does not appear to be respiratory distress he denies any chest pain at this time. His lung sounds very tight with expiratory and inspiratory wheezes he has a moist nonproductive cough. Heart sounds are regular S1 and S2 with no rubs clicks cows murmurs noted abdomen soft and nontender no pedal edema noted. He is 96% on 3 L nasal cannula. I did review this case with Dr. Ontiveros who agrees with plan Past Med Surg Social Fam HX - Past Medical History Medical history: cardiomyopathy, COPD, diabetes, GERD, hypertension, other Psychiatric history: anxiety, depression - Past Surgical History Surgical History: cataract, herniorrhaphy, other - Social History Smoking Status: Former smoker Smokeless Tobacco Status: No Alcohol use: rarely Drug use: none - Family History Father Family Member Ethnicity: Non- Living Status: Hx Family Cardiac Disorders: No Hx Family Respiratory Disorders: No Hx Family Cancer: Yes (pancreatic) Hx Family GI Disorders: No Hx Family Endocrine Disorder: Yes Hx Family Neuromuscular Disorders: No Hx Family Neurologic Disorders: No Hx Family HEENT Disorders: No Hx Family Autoimmune Disorders: No Mother Adopted: No Family Member Ethnicity: Non- Living Status: Hx Family Cardiac Disorders: Yes Hx Family Respiratory Disorders: Yes Hx Family Cancer: Yes (lung cancer) Hx Family GI Disorders: No Hx Family Endocrine Disorder: No Hx Family Neuromuscular Disorders: No Hx Family Neurologic Disorders: No Hx Family HEENT Disorders: No Hx Family Autoimmune Disorders: No Sister Living Status: Still Living Hx Family Cardiac Disorders: Yes Hx Family Respiratory Disorders: Yes Hx Family Cancer: No Hx Family GI Disorders: No Hx Family Endocrine Disorder: No Hx Family Neuromuscular Disorders: No Hx Family Neurologic Disorders: No Hx Family HEENT Disorders: No Hx Family Autoimmune Disorders: No Internal Medicine - H&P: Meds Albuterol Sulfate [Albuterol Inhaler] 2 puff IH Q4HR PRN 03/16/16 [History] Azelastine 0.1% Nasal [place] [Astelin] 1 spray NS BID 03/16/16 [History] Budesonide/Formoterol 160/4.5 [Symbicort 160/4.5] 2 puff IH BIDR 03/16/16 [ History] Ergocalciferol (VITAMIN D2) [Vitamin D] 400 unit PO DAILY 03/16/16 [History] Esomeprazole Magnesium [Nexium] 40 mg PO BID 03/16/16 [History] Fluticasone Propionate Nasal [Flonase] 2 spray NS DAILY 03/16/16 [History] Ketoconazole Shampoo [Nizoral Shampoo] 1 appl TP 3XW 03/16/16 [History] Psyllium Seed (with Sugar) [Metamucil Powder] 1 each PO BID 03/16/16 [History] Roflumilast [Daliresp] 500 mcg PO DAILY 03/16/16 [History] Sodium Chloride [[place] Saline] 1 spray NS BID PRN 03/16/16 [History] Montelukast [Singulair] 10 mg PO HS #30 tablet 09/30/16 [Rx] Metoclopramide [Reglan] 10 mg PO ACHS 11/03/16 [History] Umeclidinium [place] [Incruse Ellipta] 1 puff IH DAILY 11/03/16 [History] Oxygen 3 l .ROUTE AD 11/20/16 [History] Losartan [Cozaar] 25 mg PO DAILY #30 tablet 12/10/16 [Rx] Furosemide [Lasix] 40 mg PO BID #60 tablet 01/06/17 [Rx] Cetirizine HCl [Zyrtec] 10 mg PO DAILY PRN #0 01/27/17 [Rx] Magnesium Oxide [Mag-Ox] 400 mg PO DAILY #15 tablet 01/27/17 [Rx] Potassium Chloride 20 meq PO DAILY #15 tab.er.prt 01/27/17 [Rx] OxyCODONE/APAP 10/325 [Percocet 10/325 MG] 1 each PO Q8H PRN #42 tablet [Rx] Sennosides/Docusate Sodium [Senna Plus] 2 each PO HS 30 Days tablet 02/06/17 [ Rx] Sodium Chloride [Mesalt] 1 each TP DAILY 30 Days bandage 02/06/17 [Rx] Metoprolol [Lopressor] 25 mg PO DAILY 07/05/17 [History] predniSONE [PredniSONE] 5 mg PO DAILY 07/05/17 [History] 3 Allergy/AdvReac Type Severity Reaction Status Date / Time morphine Allergy Difficulty Verified 07/05/17 08:24 Breathing sulfamethoxazole Allergy Hives Verified 07/05/17 08:24 [From Bactrim] trimethoprim [From Bactrim] Allergy Hives Verified 07/05/17 08:24 codeine AdvReac Nausea Verified 07/05/17 08:24 All Systems PM: A 10-system review of systems was performed and is negative for pertinent findings except as documented above in the HPI. - Constitutional Constitutional: chills, fatigue, fever(s), no night sweats - EENT Eyes: no change in vision, no discharge, no pain, no photophobia - Cardiovascular Cardiovascular ROS IM: chest pain, no diaphoresis, no dyspnea, no lightheadedness, no palpitations, no syncope - Respiratory Respiratory: cough, change in phlegm color, pain with cough - Gastrointestinal Gastrointestinal: no abdominal pain, no diarrhea, no hematemesis, no hematochezia, no melena, no nausea, no vomiting - Musculoskeletal Musculoskeletal ROS IM: no numbness, no tingling - Integumentary Integumentary IM: no rash, no unusual bruising - Neurological Neurological ROS: no confusion, no convulsions, no focal weakness, no numbness, no tingling, no tremor(s) - Hematologic/Lymphatic Hematologic/Lymphatic: no easy bruising - Constitutional Vitals: Temp Pulse Resp BP Pulse Ox 98.4 F 88 11 133/77 96 07/05/17 08:30 07/05/17 10:33 07/05/17 10:56 07/05/17 10:56 07/05/17 10:33 General appearance: Present: A&O X 3 - Head Head exam: Present: atraumatic, normocephalic - Eye Eye exam: Present: PERRL, conjuntiva pink, sclera anicteric Pupils: Present: PERRL - Neck Neck exam general surgery: Present: supple, trachea midline. Absent: lymphadenopathy - Respiratory Respiratory exam: Present: wheezes. Absent: accessory muscle use, rales, rhonchi - Cardiovascular Cardiovascular exam: Present: RRR, +S1, +S2. Absent: diastolic murmur, gallop, rubs, systolic murmur - GI/Abdominal GI/Abdominal exam: Present: normal bowel sounds, soft, no peritoneal signs. Absent: distended, tenderness - Extremities Exam Extremities exam: Present: warm, radial pulses palpable and symmetrical. Absent : calf tenderness, cyanotic, pedal edema - Neurological Exam Neurological exam: Present: CN II-XII intact, oriented X3, no focal deficits. Absent: pronater drift, facial droop, speech deficit - Skin Skin exam: Present: dry, intact Internal Med - H&P Results - Labs CBC & Chem 7: 07/05/17 08:55 07/05/17 08:55 - EKG Data EKG shows normal: sinus rhythm - EKG Data Prior EKG available for review: yes When compared to previous EKG: there is no significant change - Diagnostic Studies Chest x-ray Additional comments: Chest X-Ray 07/05/17 08:25 IMPRESSION: Two tiny focal infiltrates within the right mid lung which may represent an atelectasis versus developing pneumonia. Follow-up examination is recommended to exclude pulmonary nodule. Partial resolution of the right costophrenic angle infiltrate. D/ / 07/05/2017 08:52:38 Vivek Ontiveros MD / matt Interpreting Provider: Vivek Ontiveros MD <Franklyn Beal - Last Filed: 07/05/17 13:13> Date of Encounter: 07/05/17 Internal Medicine - H&P: HPI History of present illness: Mr. Herring is a 62 year old male All Systems PM: A 10-system review of systems was performed and is negative for pertinent findings except as documented above in the HPI. - Constitutional Vitals: Temp Pulse Resp BP Pulse Ox 98.0 F 93 18 155/72 95 07/05/17 11:19 07/05/17 11:19 07/05/17 11:37 07/05/17 11:19 07/05/17 11:37 Internal Med - H&P Results - Labs CBC & Chem 7: 07/05/17 08:55 07/05/17 08:55 - Attending Attestation I examined this patient and my medical decision-making was reviewed with the PICK UP ATTENDANT. I agree with the documented findings, disposition and treatment plan as described except to the extent set forth below. Patient is a 62-year-old male with past medical history of COPD and hypertension. Presents to the ED with complaints for shortness of breath. Chest x-ray reveals 2 tiny focal infiltrates within the right mid lung. Patient does have significantly elevated white count. Patient is being admitted for COPD exacerbation and pneumonia. He will be on IV Levaquin and also DuoNeb breathing treatment. Patient has no other acute complaints. CODE STATUS full code. Heart rate 93, blood pressure 155/72, O2 95% on 2 L. Heart S1-S2 positive. Lungs bilateral extensive wheezing present. Extremities mild bilateral lower leg edema.
[2017-07-05] MEDS: Ipratropium/Albuterol Neb 3 ML IH SCH ×4 (11:34→23:58)
[2017-07-05] MEDS: Insulin LISPRO 300 UNITS/3 ML VIAL SQ SCH ×3 (14:06→20:24)
[2017-07-05] MEDS: Levofloxacin 750 MG/150 ML 750 MG/150 ML BAG IVPB SCH (15:01)
[2017-07-05] MEDS: methylPREDNISolone 125 MG/2 ML VIAL IVP SCH ×3 (15:02→23:44)
[2017-07-05] MEDS: Budesonide/Formoterol 160/4.5 MDI IH SCH (20:11)
[2017-07-05] MEDS: Furosemide 40 MG TABLET PO SCH (20:24)
--- NOTE | 2017-07-05 20:27 | Electrocardiograph Report ---
[place] [address] Test Date: 2017-07-05 Pat Name: Don Herring Department: 103 Room: 3B Gender: M [employer]: AM : 1955 Requested By: Siomara Urbina Order Number: [id number] Reading MD: Anaya Miranda Measurements Intervals [place] Rate: 95 P: 84 GA: 189 QRS: 29 QRSD: 85 T: 59 QT: 326 QTc: 378 Interpretive Statements SINUS RHYTHM Electronically Signed On 07-05-2017 20:26:20 EDT by Anaya Miranda
[2017-07-05] MEDS ORDERED: clonazePAM 0.5 MG TABLET PO ONE (21:25)
[2017-07-05] MEDS ORDERED: Psyllium 1 PACKET POWD.PACK PO SCH (21:30)
[2017-07-06] MEDS: Ipratropium/Albuterol Neb 3 ML IH SCH ×6 (04:02→23:23)
[2017-07-06 05:26] LABS: Basophils % 0.2 %; Hematocrit 33.2 % (37.5-50.1); Hemoglobin 10.1 g/dL (12.9-16.9); Immature Granulocytes % 1.1 % (0-4); Lymphocytes # 0.9 K/mcL (0.6-4.6); Lymphocytes % 5.1 %; Mean Corpuscular HGB Conc 30.4 g/dL (31.6-35.5); Mean Corpuscular Hemoglobin 24.6 pg (28.0-33.3); Monocytes # 0.5 K/mcL (0.0-1.3); Monocytes % 3.1 %; Neutrophils # 15.5 K/mcL (1.6-8.9); Platelet Count 366 K/mcL (140-400); Red Cell Distribution Width 15.9 % (11.5-14.5); Segmented Neutrophils % 90.5 %
[2017-07-06 05:32] LABS: BUN/Creatinine Ratio 19 (6-26); Blood Urea Nitrogen 21 mg/dL (8-26); Calcium 9.7 mg/dL (8.6-10.8); Carbon Dioxide 21 mEq/L (19-29); Chloride 105 mEq/L (98-109); Glucose 225 mg/dL (70-99); Osmolality,Calculated 292 (280-300); Potassium 4.5 mEq/L (3.5-4.5); Sodium 136 mEq/L (136-145); eGFR For African Americans > 60 (> 60); eGFR For Non-African Americans > 60 (> 60)
[2017-07-06] MEDS: methylPREDNISolone 125 MG/2 ML VIAL IVP SCH ×4 (06:36→23:37)
[2017-07-06] MEDS: *HR* Enoxaparin 40 MG/0.4 ML SYRINGE SQ SCH (06:36)
[2017-07-06] MEDS: Budesonide/Formoterol 160/4.5 MDI IH SCH ×2 (08:17→19:50)
[2017-07-06] MEDS: Furosemide 40 MG TABLET PO SCH ×2 (08:42→18:09)
[2017-07-06] MEDS: Insulin LISPRO 300 UNITS/3 ML VIAL SQ SCH ×4 (08:43→20:48)
[2017-07-06] MEDS: Fluticasone Propionate Nasal 50 MCG/SPRAY BOTTLE NS SCH (08:44)
[2017-07-06] MEDS ORDERED: (Roflumilast [Daliresp] 500 MCG) PO SCH (09:00)
[2017-07-06] MEDS: Levofloxacin 750 MG/150 ML 750 MG/150 ML BAG IVPB SCH (12:07)
[2017-07-06] MEDS: clonazePAM 0.5 MG TABLET PO PRN ×2 (13:31→22:05)
--- NOTE | 2017-07-06 14:46 | Internal Med Progress Note ---
Date of Encounter: 07/06/17 Time of Encounter: 14:20 - Subjective Interval history: Was seen and assessed at 1420. He is alert and oriented and sitting up in the chair at the bedside. He denies any chest pain. He does report dyspnea with exertion and productive cough with white sputum. States that he is not ready to go home. She states he has been having increasing dyspnea, dyspnea on exertion, increasing productive cough for 3 days prior to arrival. - Constitutional Vitals: Temp Pulse Resp BP Pulse Ox 97.9 F 93 17 138/54 98 07/06/17 11:35 07/06/17 11:35 07/06/17 11:35 07/06/17 11:35 07/06/17 11:35 General appearance: Present: cooperative, A&O X 3, morbidly obese, pleasant, no acute distress - Head Head exam: Present: atraumatic, normal inspection, normocephalic - Eye Eye exam: Present: EOMI, conjuntiva pink, sclera anicteric - Neck Neck exam general surgery: Present: normal inspection, supple, trachea midline. Absent: lymphadenopathy, tenderness - Respiratory Respiratory exam: Present: CTAB. Absent: accessory muscle use, rales, rhonchi, wheezes - Cardiovascular Cardiovascular exam: Present: RRR, +S1, +S2. Absent: diastolic murmur, gallop, rubs, systolic murmur - GI/Abdominal GI/Abdominal exam: Present: distended, hepatomegaly, normal bowel sounds, soft, no peritoneal signs. Absent: tenderness - Extremities Exam Extremities exam: Present: normal capillary refill, warm, radial pulses palpable and symmetrical. Absent: calf tenderness, cyanotic, pedal edema, tenderness - Neurological Exam Neurological exam: Present: alert, oriented X3, no focal deficits. Absent: facial droop, speech deficit - Skin Skin exam: Present: dry, intact, normal color, warm. Absent: rash Internal Medicine: Result - Labs CBC & Chem 7: 07/06/17 04:52 07/06/17 04:52 Labs: Short CBC 07/06/17 Range/Units 04:52 WBC 17.1 H (4.3-11.1) K/mcL Hgb 10.1 L (12.9-16.9) g/dL Hct 33.2 L (37.5-50.1) % Plt Count 366 (140-400) K/mcL Neutrophils # 15.5 H (1.6-8.9) K/mcL BMP 07/06/17 04:52 Sodium 136 Potassium 4.5 Chloride 105 Carbon Dioxide 21 BUN 21 Creatinine 1.12 Glucose 225 H Calcium 9.7 Cardiac Enzymes 07/05/17 Range/Units 20:31 Troponin I 0.00 (0-0.03) ng/mL - ABG Interpretation ABG results: PT/INR, D-dimer PT 13.4 Seconds (9.4-12.1) H 07/05/17 08:55 Consult Discharge Plan - Plan Referrals: Jesus Machuca DO [Primary Care Provider] -
--- NOTE | 2017-07-06 14:52 | Internal Med Progress Note ---
Date of Encounter: 07/06/17 Time of Encounter: 14:20 - Assessment and plan (1) Pneumonia Current Visit: Yes Status: Acute Assessment and plan: Per chest x-ray, 2 tiny focal infiltrates in the right lung could represent developing pneumonia. Patient denies any fever, mild leukocytosis is improving today. Patient reports increasing difficulty with dyspnea and dyspnea on exertion for 3 days prior to arrival. He reports productive cough with white sputum. He denies any recent hospitalizations or stays in extended care facilities. This is community-acquired pneumonia. His lungs are diminished with expiratory wheezing heard in all banks. Oxygen as needed to maintain sats greater than 92%. Patient normally wears 3 L oxygen at home continuously. Continue duo nebs, Symbicort, IV Solu-Medrol, Singulair, and Levaquin IV. Continue continuous pulse ox. Qualifiers: Pneumonia type: due to unspecified organism Laterality: right Lung location: unspecified part of lung Qualified Code(s): J18.9 - Pneumonia, unspecified organism (2) COPD (chronic obstructive pulmonary disease) Current Visit: Yes Status: Chronic Assessment and plan: Plan as above. Qualifiers: COPD type: unspecified COPD Qualified Code(s): J44.9 - Chronic obstructive pulmonary disease, unspecified (3) HTN (hypertension) Current Visit: Yes Status: Chronic Assessment and plan: Chronic. Continue home medications. Monitor vital signs. Qualifiers: Hypertension type: essential hypertension Qualified Code(s): I10 - Essential (primary) hypertension (4) Obstructive sleep apnea Current Visit: Yes Status: Chronic Assessment and plan: Continue BiPAP. (5) GERD (gastroesophageal reflux disease) Current Visit: Yes Status: Chronic Assessment and plan: Chronic. Continue home medications. Qualifiers: Esophagitis presence: esophagitis presence not specified Qualified Code(s) : K21.9 - Gastro-esophageal reflux disease without esophagitis (6) Borderline diabetes Current Visit: Yes Status: Chronic Assessment and plan: Per patient history. Hemoglobin A1c was 6.0% in November. Repeat in a.m. Will add sliding scale insulin, Accu-Cheks before meals at bedtime, diabetic diet pending results. (7) Obesity Current Visit: No Status: Acute Assessment and plan: Chronic. Lifestyle changes. Qualifiers: Obesity type: unspecified obesity type Obesity classification: adult class 3 (BMI >= 40) Serious obesity comorbidity presence: unspecified whether serious comorbidity present Body mass index: BMI 40.0-44.9 Qualified Code(s) : E66.9 - Obesity, unspecified; Z68.41 - Body mass index (BMI) 40.0-44.9, adult (8) Chronic hypoxemic respiratory failure Current Visit: Yes Status: Chronic Assessment and plan: Pt requires supplemental 02 at home. Normally wears 3L 02 at all times, is not requiring additional during admission. Continue to monitor and titrate as needed. (9) DVT prophylaxis Current Visit: Yes Status: Acute Assessment and plan: Lovenox SQ. - Time Spent With Patient less than 15 minutes - Subjective Interval history: Was seen and assessed at 1420. He is alert and oriented and sitting up in the chair at the bedside. He denies any chest pain. He does report dyspnea with exertion and productive cough with white sputum. States that he is not ready to go home. She states he has been having increasing dyspnea, dyspnea on exertion, increasing productive cough for 3 days prior to arrival. - Constitutional Vitals: Temp Pulse Resp BP Pulse Ox 97.9 F 93 17 138/54 98 07/06/17 11:35 07/06/17 11:35 07/06/17 11:35 07/06/17 11:35 07/06/17 11:35 General appearance: Present: cooperative, A&O X 3, morbidly obese, pleasant, no acute distress, answers questions appropriately - Head Head exam: Present: atraumatic, normal inspection, normocephalic - Eye Eye exam: Present: EOMI, normal appearance, conjuntiva pink, sclera anicteric - Neck Neck exam general surgery: Present: supple, trachea midline. Absent: lymphadenopathy, tenderness - Respiratory Respiratory exam: Present: decreased breath sounds, CTAB, wheezes. Absent: accessory muscle use, rales, rhonchi - Cardiovascular Cardiovascular exam: Present: RRR, +S1, +S2. Absent: diastolic murmur, gallop, rubs, systolic murmur - GI/Abdominal GI/Abdominal exam: Present: distended, normal bowel sounds, soft, no peritoneal signs. Absent: tenderness - Extremities Exam Extremities exam: Present: normal inspection, warm, radial pulses palpable and symmetrical. Absent: calf tenderness, cyanotic, pedal edema, tenderness - Neurological Exam Neurological exam: Present: alert, oriented X3, no focal deficits. Absent: facial droop, speech deficit - Skin Skin exam: Present: dry, intact, normal color, warm. Absent: rash Internal Medicine: Result - Labs CBC & Chem 7: 07/06/17 04:52 07/06/17 04:52 Labs: Short CBC 07/06/17 Range/Units 04:52 WBC 17.1 H (4.3-11.1) K/mcL Hgb 10.1 L (12.9-16.9) g/dL Hct 33.2 L (37.5-50.1) % Plt Count 366 (140-400) K/mcL Neutrophils # 15.5 H (1.6-8.9) K/mcL BMP 07/06/17 04:52 Sodium 136 Potassium 4.5 Chloride 105 Carbon Dioxide 21 BUN 21 Creatinine 1.12 Glucose 225 H Calcium 9.7 Cardiac Enzymes 07/05/17 Range/Units 20:31 Troponin I 0.00 (0-0.03) ng/mL - ABG Interpretation ABG results: PT/INR, D-dimer PT 13.4 Seconds (9.4-12.1) H 07/05/17 08:55 Consult Discharge Plan - Plan Referrals: Jesus Machuca DO [Primary Care Provider] -
[2017-07-06] MEDS: *HR* OxyCODONE/APAP 10/325 TABLET PO PRN (18:16)
[2017-07-06] MEDS: Psyllium 1 PACKET POWD.PACK PO SCH (20:49)
[2017-07-06] MEDS: Saline Nasal Spray 44 ML BOTTLE NS PRN (22:00)
[2017-07-07] MEDS: Ipratropium/Albuterol Neb 3 ML IH SCH ×6 (03:14→23:10)
[2017-07-07] MEDS: *HR* OxyCODONE/APAP 10/325 TABLET PO PRN ×3 (04:15→20:58)
[2017-07-07 04:58] LABS: Basophils % 0.1 %; Hematocrit 36.5 % (37.5-50.1); Hemoglobin 11.4 g/dL (12.9-16.9); Lymphocytes # 0.9 K/mcL (0.6-4.6); Lymphocytes % 4.3 %; Mean Corpuscular HGB Conc 31.2 g/dL (31.6-35.5); Mean Corpuscular Hemoglobin 25.6 pg (28.0-33.3); Mean Platelet Volume 8.8 fL (9.4-12.4); Monocytes # 0.8 K/mcL (0.0-1.3); Monocytes % 3.9 %; Neutrophils # 19.2 K/mcL (1.6-8.9); Platelet Count 426 K/mcL (140-400); Red Blood Count 4.45 M/mcL (4.19-5.50); Red Cell Distribution Width 16.2 % (11.5-14.5); Segmented Neutrophils % 90.7 %
[2017-07-07 05:25] LABS: BUN/Creatinine Ratio 22 (6-26); Blood Urea Nitrogen 28 mg/dL (8-26); Calcium 10.1 mg/dL (8.6-10.8); Carbon Dioxide 16 mEq/L (19-29); Chloride 104 mEq/L (98-109); Glucose 203 mg/dL (70-99); Osmolality,Calculated 299 (280-300); Potassium 4.5 mEq/L (3.5-4.5); Sodium 139 mEq/L (136-145); eGFR For African Americans > 60 (> 60); eGFR For Non-African Americans 56 (> 60)
[2017-07-07] MEDS: Saline Nasal Spray 44 ML BOTTLE NS PRN ×2 (06:10→21:02)
[2017-07-07] MEDS: methylPREDNISolone 125 MG/2 ML VIAL IVP SCH ×2 (06:11→12:24)
[2017-07-07] MEDS: *HR* Enoxaparin 40 MG/0.4 ML SYRINGE SQ SCH (06:11)
[2017-07-07] MEDS: Budesonide/Formoterol 160/4.5 MDI IH SCH ×2 (08:09→19:44)
[2017-07-07] MEDS: Insulin LISPRO 300 UNITS/3 ML VIAL SQ SCH ×4 (08:50→21:02)
[2017-07-07] MEDS: Furosemide 40 MG TABLET PO SCH ×2 (10:47→18:27)
[2017-07-07] MEDS: Levofloxacin 750 MG/150 ML 750 MG/150 ML BAG IVPB SCH (10:48)
[2017-07-07] MEDS: Fluticasone Propionate Nasal 50 MCG/SPRAY BOTTLE NS SCH (10:52)
--- NOTE | 2017-07-07 10:52 | Neurology - Consult Note ---
Date of Encounter: 07/07/17 Time of Encounter: 10:00 History of Present Illness HPI: Mr. Herring is a 62 year old male Past Med Surg Social Fam HX - Past Medical History Medical history: cardiomyopathy, COPD, diabetes, GERD, hypertension, other Psychiatric history: anxiety, depression - Past Surgical History Surgical History: cataract, herniorrhaphy, other - Social History Smoking Status: Former smoker Smokeless Tobacco Status: No Alcohol use: rarely Drug use: none - Family History Father Name: Gustavo Herring Family Member Ethnicity: Non- Living Status: Age at : 76 Cause of : pancreatic cancer Hx Family Cardiac Disorders: No Hx Family Respiratory Disorders: No Hx Family Cancer: Yes Hx Family GI Disorders: No Hx Family Endocrine Disorder: Yes Hx Family Neuromuscular Disorders: No Hx Family Neurologic Disorders: No Hx Family HEENT Disorders: No Hx Family Autoimmune Disorders: No Mother Adopted: [place]: Jaswinder Herring Age: 60 Family Member Ethnicity: Non- Living Status: Age at : 60 Cause of : heart attack Hx Family Cardiac Disorders: Yes Hx Family Respiratory Disorders: Yes Hx Family Cancer: Yes Hx Family GI Disorders: No Hx Family Endocrine Disorder: No Hx Family Neuromuscular Disorders: No Hx Family Neurologic Disorders: No Hx Family HEENT Disorders: No Hx Family Autoimmune Disorders: No Sister Living Status: Still Living Hx Family Cardiac Disorders: Yes Hx Family Respiratory Disorders: Yes Hx Family Cancer: No Hx Family GI Disorders: No Hx Family Endocrine Disorder: No Hx Family Neuromuscular Disorders: No Hx Family Neurologic Disorders: No Hx Family HEENT Disorders: No Hx Family Autoimmune Disorders: No Medications and Allergies Albuterol Sulfate [Albuterol Inhaler] 2 puff IH Q4HR PRN 03/16/16 [History] Azelastine 0.1% Nasal [place] [Astelin] 1 spray NS BID 03/16/16 [History] Budesonide/Formoterol 160/4.5 [Symbicort 160/4.5] 2 puff IH BIDR 03/16/16 [ History] Ergocalciferol (VITAMIN D2) [Vitamin D] 400 unit PO DAILY 03/16/16 [History] Esomeprazole Magnesium [Nexium] 40 mg PO BID 03/16/16 [History] Fluticasone Propionate Nasal [Flonase] 2 spray NS DAILY 03/16/16 [History] Ketoconazole Shampoo [Nizoral Shampoo] 1 appl TP 3XW 03/16/16 [History] Psyllium Seed (with Sugar) [Metamucil Powder] 1 each PO HS 03/16/16 [History] Roflumilast [Daliresp] 500 mcg PO DAILY 03/16/16 [History] Sodium Chloride [Prosper Saline] 1 spray NS BID PRN 03/16/16 [History] Montelukast [Singulair] 10 mg PO HS #30 tablet 09/30/16 [Rx] Metoclopramide [Reglan] 10 mg PO ACHS 11/03/16 [History] Umeclidinium Dingess [Incruse Ellipta] 1 puff IH DAILY 11/03/16 [History] Oxygen 3 l .ROUTE AD 11/20/16 [History] Losartan [Cozaar] 25 mg PO DAILY #30 tablet 12/10/16 [Rx] Furosemide [Lasix] 40 mg PO BID #60 tablet 01/06/17 [Rx] Cetirizine HCl [Zyrtec] 10 mg PO DAILY PRN #0 01/27/17 [Rx] Magnesium Oxide [Mag-Ox] 400 mg PO DAILY #15 tablet 01/27/17 [Rx] Potassium Chloride 20 meq PO DAILY #15 tab.er.prt 01/27/17 [Rx] OxyCODONE/APAP 10/325 [Percocet 10/325 MG] 1 each PO Q8H PRN #42 tablet [Rx] Sodium Chloride [Mesalt] 1 each TP DAILY 30 Days bandage 02/06/17 [Rx] Metoprolol [Lopressor] 25 mg PO BID 07/05/17 [History] Sennosides/Docusate Sodium [Senna Plus] 6 each PO HS 07/05/17 [History] predniSONE [PredniSONE] 5 mg PO DAILY 07/05/17 [History] 3 Allergy/AdvReac Type Severity Reaction Status Date / Time morphine Allergy Difficulty Verified 07/05/17 08:24 Breathing sulfamethoxazole Allergy Hives Verified 07/05/17 08:24 [From Bactrim] trimethoprim [From Bactrim] Allergy Hives Verified 07/05/17 08:24 codeine AdvReac Nausea Verified 07/05/17 08:24 All Systems: A 10-system review of systems was performed and is negative for pertinent findings except as documented above in the HPI. Physical Examination - Vital Signs Vital Signs: Initial Vital Signs Temp Pulse Resp BP Pulse Ox 98.4 F 97 22 141/53 97 07/05/17 08:30 07/05/17 08:30 07/05/17 08:30 07/05/17 08:30 07/05/17 08:30 Results - Laboratory Findings CBC and BMP: 07/07/17 04:30 07/07/17 04:30 Abnormal lab findings: Abnormal lab results WBC 21.2 K/mcL (4.3-11.1) H 07/07/17 04:30 Hgb 11.4 g/dL (12.9-16.9) L 07/07/17 04:30 Hct 36.5 % (37.5-50.1) L 07/07/17 04:30 MCV 82.0 fL (83.0-100.0) L 07/07/17 04:30 MCH 25.6 pg (28.0-33.3) L 07/07/17 04:30 MCHC 31.2 g/dL (31.6-35.5) L 07/07/17 04:30 RDW 16.2 % (11.5-14.5) H 07/07/17 04:30 Plt Count 426 K/mcL (140-400) H 07/07/17 04:30 MPV 8.8 fL (9.4-12.4) L 07/07/17 04:30 Neutrophils # 19.2 K/mcL (1.6-8.9) H 07/07/17 04:30 PT 13.4 Seconds (9.4-12.1) H 07/05/17 08:55 APTT 42.0 Seconds (26.0-36.0) H 07/05/17 08:55 Carbon Dioxide 16 mEq/L (19-29) L 07/07/17 04:30 BUN 28 mg/dL (8-26) H 07/07/17 04:30 Creatinine 1.29 mg/dL (0.72-1.25) H 07/07/17 04:30 Est GFR (Non-Af Amer) 56 (> 60) L 07/07/17 04:30 Glucose 203 mg/dL (70-99) H 07/07/17 04:30 POC Glucose 192 (58-89) H 07/06/17 20:44 Hemoglobin A1c 6.0 % (-5.6) H 07/07/17 04:30 Albumin 3.4 g/dL (3.5-5.0) L 07/05/17 08:55 Globulin 4.6 g/dL (2.4-3.5) H 07/05/17 08:55 Albumin/Globulin Ratio 0.7 (1.1-2.2) L 07/05/17 08:55 Consult Discharge Plan - Plan Referrals: Jesus Machuca DO [Primary Care Provider] - 07/08/17 2:00 pm
[2017-07-07] MEDS: clonazePAM 0.5 MG TABLET PO PRN ×2 (13:47→20:58)
--- NOTE | 2017-07-07 17:13 | Internal Med Progress Note ---
Date of Encounter: 07/07/17 Time of Encounter: 15:40 - Assessment and plan (1) Pneumonia Current Visit: Yes Status: Acute Assessment and plan: Per chest x-ray, 2 tiny focal infiltrates in the right lung could represent developing pneumonia. Patient denies any fever, leukocytosis has increased, however, pt is receiving IV steroids. He reports productive cough with white sputum. He denies any recent hospitalizations or stays in extended care facilities. This is community-acquired pneumonia of unknown etiology. His lungs are diminished with expiratory wheezing heard in all banks. Due to pt stating that he feels worse, uvaldo ear pain, pharyngitis, I have ordered a viral swab and a flu swab. Oxygen as needed to maintain sats greater than 92%. Patient normally wears 3 L oxygen at home continuously. Continue duo nebs, Symbicort, IV Solu-Medrol, Singulair, and Levaquin IV. Continue continuous pulse ox. Qualifiers: Pneumonia type: due to unspecified organism Laterality: right Lung location: unspecified part of lung Qualified Code(s): J18.9 - Pneumonia, unspecified organism (2) COPD (chronic obstructive pulmonary disease) Current Visit: Yes Status: Chronic Assessment and plan: Plan as above. Qualifiers: COPD type: unspecified COPD Qualified Code(s): J44.9 - Chronic obstructive pulmonary disease, unspecified (3) HTN (hypertension) Current Visit: Yes Status: Chronic Assessment and plan: Chronic. Continue home medications. Monitor vital signs. Qualifiers: Hypertension type: essential hypertension Qualified Code(s): I10 - Essential (primary) hypertension (4) Obstructive sleep apnea Current Visit: Yes Status: Chronic Assessment and plan: Continue BiPAP. pt will continue at home after discharge. (5) GERD (gastroesophageal reflux disease) Current Visit: Yes Status: Chronic Assessment and plan: Chronic. Continue home medications. Qualifiers: Esophagitis presence: esophagitis presence not specified Qualified Code(s) : K21.9 - Gastro-esophageal reflux disease without esophagitis (6) Borderline diabetes Current Visit: Yes Status: Chronic Assessment and plan: Per patient history. Hemoglobin A1c was 6.0% in November. 6.0% again today, consistent with diagnosis of prediabetes. Will add sliding scale insulin, Accu-Cheks before meals at bedtime, diabetic diet pending results. (7) Obesity Current Visit: No Status: Acute Assessment and plan: Chronic. Lifestyle changes. Qualifiers: Obesity type: unspecified obesity type Obesity classification: adult class 3 (BMI >= 40) Serious obesity comorbidity presence: unspecified whether serious comorbidity present Body mass index: BMI 40.0-44.9 Qualified Code(s) : E66.9 - Obesity, unspecified; Z68.41 - Body mass index (BMI) 40.0-44.9, adult (8) Chronic hypoxemic respiratory failure Current Visit: Yes Status: Chronic Assessment and plan: Pt requires supplemental 02 at home. Normally wears 3L 02 at all times, is requiring additional during admission, 4L today. Continue to monitor and titrate as needed. (9) DVT prophylaxis Current Visit: Yes Status: Acute Assessment and plan: Lovenox SQ. Pt is up in chair as needed. - Time Spent With Patient less than 15 minutes - Subjective Interval history: Was seen and assessed at 1540. He is alert and oriented and sitting up in the chair at the bedside. He states that he feels worse today than yesterday. Reports uvaldo ear pain, sore throat, and productive cough. Pt states that he is not ready to go home. There is no change in physical exam from yesterday. - Constitutional Vitals: Temp Pulse Resp BP Pulse Ox 97.5 F L 87 17 129/55 95 07/07/17 15:24 07/07/17 15:24 07/07/17 15:24 07/07/17 15:24 07/07/17 15:24 General appearance: Present: cooperative, A&O X 3, morbidly obese, pleasant, no acute distress, answers questions appropriately - Head Head exam: Present: atraumatic, normal inspection, normocephalic - Eye Eye exam: Present: conjuntiva pink, sclera anicteric - ENT ENT exam: Present: mucous membranes moist, normal exam, normal external ear exam - Neck Neck exam general surgery: Present: normal inspection, supple, trachea midline. Absent: lymphadenopathy, tenderness - Respiratory Respiratory exam: Present: wheezes. Absent: accessory muscle use, chest wall tenderness, decreased breath sounds, rales, rhonchi - Cardiovascular Cardiovascular exam: Present: RRR, +S1, +S2. Absent: diastolic murmur, gallop, rubs, systolic murmur - GI/Abdominal GI/Abdominal exam: Present: distended, normal bowel sounds, soft, no peritoneal signs. Absent: hepatomegaly, tenderness - Extremities Exam Extremities exam: Present: pedal edema, warm, radial pulses palpable and symmetrical. Absent: calf tenderness, cyanotic, tenderness - Neurological Exam Neurological exam: Present: alert, oriented X3, no focal deficits. Absent: facial droop, speech deficit - Skin Skin exam: Present: dry, intact, normal color, warm. Absent: rash Internal Medicine: Result - Labs CBC & Chem 7: 07/07/17 04:30 07/07/17 04:30 Labs: Short CBC 07/07/17 Range/Units 04:30 WBC 21.2 H (4.3-11.1) K/mcL Hgb 11.4 L (12.9-16.9) g/dL Hct 36.5 L (37.5-50.1) % Plt Count 426 H (140-400) K/mcL Neutrophils # 19.2 H (1.6-8.9) K/mcL BMP 07/07/17 04:30 Sodium 139 Potassium 4.5 Chloride 104 Carbon Dioxide 16 L BUN 28 H Creatinine 1.29 H Glucose 203 H Calcium 10.1 - ABG Interpretation ABG results: PT/INR, D-dimer PT 13.4 Seconds (9.4-12.1) H 07/05/17 08:55 Consult Discharge Plan - Plan Referrals: Jesus Machuca DO [Primary Care Provider] - 07/08/17 2:00 pm
[2017-07-07] MEDS: Melatonin 3 MG TABLET PO SCH (20:59)
[2017-07-07] MEDS: Psyllium 1 PACKET POWD.PACK PO SCH (21:01)
[2017-07-07] MEDS: MethylPREDNISolone 40 MG/ML VIAL IVP SCH (21:02)
[2017-07-08] MEDS: MethylPREDNISolone 40 MG/ML VIAL IVP SCH ×3 (03:13→20:11)
[2017-07-08] MEDS: Ipratropium/Albuterol Neb 3 ML IH SCH ×6 (03:49→23:50)
[2017-07-08 04:59] LABS: Adenovirus Not Detected (Not Detect); Bordetella Pertussis Not Detected (Not Detect); Chlamydophila pneumoniae Not Detected (Not Detect); Coronavirus 229E Not Detected (Not Detect); Coronavirus HKU1 Not Detected (Not Detect); Coronavirus NL63 Not Detected (Not Detect); Coronavirus OC43 Not Detected (Not Detect); Human Metapneumovirus Not Detected (Not Detect); Human Rhinovirus/Enterovirus Not Detected (Not Detect); Influenza A Subtype 2009 H1 Not Detected (Not Detect); Influenza A Untypeable Not Detected (Not Detect); Influenza B Not Detected (Not Detect); Mycoplasma pneumoniae Not Detected (Not Detect); Parainfluenza Virus 1 Not Detected (Not Detect); Parainfluenza Virus 2 Not Detected (Not Detect); Parainfluenza Virus 3 Not Detected (Not Detect); Parainfluenza Virus 4 ***DETECTED*** (Not Detect); Respiratory Syncytial Virus Not Detected (Not Detect)
[2017-07-08] MEDS: *HR* Enoxaparin 40 MG/0.4 ML SYRINGE SQ SCH (05:16)
[2017-07-08] MEDS: *HR* OxyCODONE/APAP 10/325 TABLET PO PRN ×2 (08:07→16:18)
[2017-07-08] MEDS: Furosemide 40 MG TABLET PO SCH ×2 (08:07→16:18)
[2017-07-08] MEDS: Fluticasone Propionate Nasal 50 MCG/SPRAY BOTTLE NS SCH (08:10)
[2017-07-08] MEDS: Insulin LISPRO 300 UNITS/3 ML VIAL SQ SCH ×4 (08:11→21:51)
[2017-07-08] MEDS: Budesonide/Formoterol 160/4.5 MDI IH SCH ×2 (08:14→20:14)
[2017-07-08] MEDS: Saline Nasal Spray 44 ML BOTTLE NS PRN ×2 (08:17→18:56)
[2017-07-08] MEDS: Levofloxacin 750 MG/150 ML 750 MG/150 ML BAG IVPB SCH (11:46)
[2017-07-08 13:12] LABS: Basophils % 0.2 %; Hematocrit 36.9 % (37.5-50.1); Hemoglobin 11.2 g/dL (12.9-16.9); Immature Granulocytes % 1.6 % (0-4); Lymphocytes % 5.8 %; Mean Corpuscular HGB Conc 30.4 g/dL (31.6-35.5); Mean Corpuscular Hemoglobin 24.7 pg (28.0-33.3); Mean Corpuscular Volume 81.5 fL (83.0-100.0); Mean Platelet Volume 8.7 fL (9.4-12.4); Monocytes # 1.4 K/mcL (0.0-1.3); Monocytes % 8.1 %; Platelet Count 416 K/mcL (140-400); Red Blood Count 4.53 M/mcL (4.19-5.50); Red Cell Distribution Width 16.2 % (11.5-14.5); Segmented Neutrophils % 84.3 %
[2017-07-08 13:24] LABS: BUN/Creatinine Ratio 28 (6-26); Blood Urea Nitrogen 34 mg/dL (8-26); Calcium 9.8 mg/dL (8.6-10.8); Carbon Dioxide 23 mEq/L (19-29); Chloride 100 mEq/L (98-109); Glucose 120 mg/dL (70-99); Osmolality,Calculated 291 (280-300); Potassium 4.3 mEq/L (3.5-4.5); Sodium 136 mEq/L (136-145); eGFR For African Americans > 60 (> 60); eGFR For Non-African Americans > 60 (> 60)
--- NOTE | 2017-07-08 18:08 | Internal Med Progress Note ---
Date of Encounter: 07/08/17 Time of Encounter: 13:15 - Assessment and plan (1) Pneumonia Current Visit: Yes Status: Acute Assessment and plan: Per chest x-ray, 2 tiny focal infiltrates in the right lung could represent developing pneumonia. Patient denies any fever, leukocytosis is improving. He reports productive cough with white sputum. He denies any recent hospitalizations or stays in extended care facilities. This is community- acquired pneumonia of unknown etiology. His lungs are diminished with expiratory wheezing heard in all banks. Viral swab was positive for parainfluenza 4. Patient is in precautions at this time. Oxygen as needed to maintain sats greater than 92%. Patient normally wears 3 L oxygen at home continuously. Continue duo nebs, Symbicort, IV Solu-Medrol, Singulair, and Levaquin IV. Continue continuous pulse ox. Qualifiers: Pneumonia type: due to unspecified organism Laterality: right Lung location: unspecified part of lung Qualified Code(s): J18.9 - Pneumonia, unspecified organism (2) COPD (chronic obstructive pulmonary disease) Current Visit: Yes Status: Chronic Assessment and plan: Plan as above. Continue O2, nebs, antibiotics, steroids. Qualifiers: COPD type: unspecified COPD Qualified Code(s): J44.9 - Chronic obstructive pulmonary disease, unspecified (3) HTN (hypertension) Current Visit: Yes Status: Chronic Assessment and plan: Chronic. Continue home medications. Monitor vital signs. Well controlled in hospital setting. Qualifiers: Hypertension type: essential hypertension Qualified Code(s): I10 - Essential (primary) hypertension (4) Obstructive sleep apnea Current Visit: Yes Status: Chronic Assessment and plan: Continue BiPAP. pt will continue at home after discharge. (5) GERD (gastroesophageal reflux disease) Current Visit: Yes Status: Chronic Assessment and plan: Chronic. Continue home medications. Qualifiers: Esophagitis presence: esophagitis presence not specified Qualified Code(s) : K21.9 - Gastro-esophageal reflux disease without esophagitis (6) Borderline diabetes Current Visit: Yes Status: Chronic Assessment and plan: Per patient history. Hemoglobin A1c was 6.0% in November. 6.0% again today, consistent with diagnosis of prediabetes. Will add sliding scale insulin, Accu-Cheks before meals at bedtime, diabetic diet. (7) Obesity Current Visit: No Status: Acute Assessment and plan: Chronic. Lifestyle changes. Qualifiers: Obesity type: unspecified obesity type Obesity classification: adult class 3 (BMI >= 40) Serious obesity comorbidity presence: unspecified whether serious comorbidity present Body mass index: BMI 40.0-44.9 Qualified Code(s) : E66.9 - Obesity, unspecified; Z68.41 - Body mass index (BMI) 40.0-44.9, adult (8) Chronic hypoxemic respiratory failure Current Visit: Yes Status: Chronic Assessment and plan: Pt requires supplemental 02 at home. Normally wears 3L 02 at all times, is requiring additional during admission, 4L today. Continue to monitor and titrate as needed. Will attempt to wean tomorrow. (9) DVT prophylaxis Current Visit: Yes Status: Acute Assessment and plan: Lovenox SQ. Pt is up in chair as needed. (10) Infection due to parainfluenza virus 4 Current Visit: Yes Status: Acute Assessment and plan: Viral swab indicated parainfluenza virus 4. Patient is in isolation. Education has been completed. - Time Spent With Patient less than 15 minutes - Subjective Interval history: Was seen and assessed at 1315. He is alert and oriented and sitting up in the chair at the bedside. He states that he feels somewhat better than he did yesterday. Reports productive cough. Pt states that he is not ready to go home. There is no change in physical exam from yesterday. He denies headache, blurred vision, lightheadedness, fever, chills, diaphoresis, abdominal pain, nausea, vomiting, diarrhea. - Constitutional Vitals: Temp Pulse Resp BP Pulse Ox 98.1 F 99 18 142/65 96 07/08/17 15:02 07/08/17 15:02 07/08/17 15:58 07/08/17 15:02 07/08/17 16:00 General appearance: Present: cooperative, A&O X 3, morbidly obese, pleasant, no acute distress, answers questions appropriately - Head Head exam: Present: atraumatic, normal inspection, normocephalic - Eye Eye exam: Present: normal appearance, conjuntiva pink, sclera anicteric - Neck Neck exam general surgery: Present: normal inspection, supple, trachea midline. Absent: lymphadenopathy, tenderness - Respiratory Respiratory exam: Present: decreased breath sounds, wheezes. Absent: accessory muscle use, chest wall tenderness, rales, respiratory distress, rhonchi - Cardiovascular Cardiovascular exam: Present: RRR, +S1, +S2. Absent: diastolic murmur, gallop, rubs, systolic murmur - GI/Abdominal GI/Abdominal exam: Present: distended, normal bowel sounds, soft, no peritoneal signs. Absent: tenderness - Extremities Exam Extremities exam: Present: warm, radial pulses palpable and symmetrical. Absent : calf tenderness, cyanotic, pedal edema, tenderness - Neurological Exam Neurological exam: Present: alert, oriented X3, no focal deficits. Absent: facial droop, speech deficit - Skin Skin exam: Present: dry, intact, normal color, warm. Absent: rash Internal Medicine: Result - Labs CBC & Chem 7: 07/08/17 12:57 07/08/17 12:57 Labs: Short CBC 07/08/17 Range/Units 12:57 WBC 16.6 H (4.3-11.1) K/mcL Hgb 11.2 L (12.9-16.9) g/dL Hct 36.9 L (37.5-50.1) % Plt Count 416 H (140-400) K/mcL Neutrophils # 14.0 H (1.6-8.9) K/mcL BMP 07/08/17 12:57 Sodium 136 Potassium 4.3 Chloride 100 Carbon Dioxide 23 BUN 34 H Creatinine 1.20 Glucose 120 H Calcium 9.8 - ABG Interpretation ABG results: PT/INR, D-dimer PT 13.4 Seconds (9.4-12.1) H 07/05/17 08:55 Consult Discharge Plan - Plan Referrals: Jesus Machuca DO [Primary Care Provider] - 07/08/17 2:00 pm
[2017-07-08] MEDS: clonazePAM 0.5 MG TABLET PO PRN (18:56)
[2017-07-08] MEDS: Psyllium 1 PACKET POWD.PACK PO SCH (20:10)
[2017-07-08] MEDS: Melatonin 3 MG TABLET PO SCH (20:11)
[2017-07-09] MEDS: clonazePAM 0.5 MG TABLET PO PRN ×3 (00:32→22:03)
[2017-07-09] MEDS: *HR* OxyCODONE/APAP 10/325 TABLET PO PRN ×3 (00:32→17:23)
[2017-07-09] MEDS: Saline Nasal Spray 44 ML BOTTLE NS PRN ×2 (00:32→09:19)
[2017-07-09] MEDS: Ipratropium/Albuterol Neb 3 ML IH SCH ×6 (03:31→23:56)
[2017-07-09] MEDS: *HR* Enoxaparin 40 MG/0.4 ML SYRINGE SQ SCH (06:11)
[2017-07-09] MEDS: MethylPREDNISolone 40 MG/ML VIAL IVP SCH ×3 (06:11→22:04)
[2017-07-09] MEDS: Budesonide/Formoterol 160/4.5 MDI IH SCH ×2 (07:55→20:00)
[2017-07-09] MEDS: Fluticasone Propionate Nasal 50 MCG/SPRAY BOTTLE NS SCH (09:18)
[2017-07-09] MEDS: Furosemide 40 MG TABLET PO SCH ×2 (09:22→17:21)
[2017-07-09] MEDS: Insulin LISPRO 300 UNITS/3 ML VIAL SQ SCH ×4 (09:25→22:04)
[2017-07-09] MEDS: Levofloxacin 750 MG/150 ML 750 MG/150 ML BAG IVPB SCH (11:21)
[2017-07-09 13:03] LABS: Basophils # 0.1 K/mcL (0.0-0.2); Basophils % 0.4 %; Hematocrit 39.1 % (37.5-50.1); Immature Granulocytes % 3.7 % (0-4); Lymphocytes # 0.9 K/mcL (0.6-4.6); Lymphocytes % 6.5 %; Mean Corpuscular HGB Conc 30.7 g/dL (31.6-35.5); Mean Corpuscular Hemoglobin 24.9 pg (28.0-33.3); Mean Corpuscular Volume 81.3 fL (83.0-100.0); Mean Platelet Volume 8.7 fL (9.4-12.4); Monocytes # 0.9 K/mcL (0.0-1.3); Monocytes % 6.5 %; Neutrophils # 11.8 K/mcL (1.6-8.9); Platelet Count 467 K/mcL (140-400); Red Blood Count 4.81 M/mcL (4.19-5.50); Red Cell Distribution Width 15.9 % (11.5-14.5); Segmented Neutrophils % 82.9 %
--- NOTE | 2017-07-09 14:39 | Internal Med Progress Note ---
Date of Encounter: 07/09/17 Time of Encounter: 12:35 - Assessment and plan (1) Pneumonia Current Visit: Yes Status: Acute Assessment and plan: Per chest x-ray, 2 tiny focal infiltrates in the right lung could represent developing pneumonia. Patient afebrile, leukocytosis is improving again today. He reports productive cough with white sputum that is decreased from days past. This is community-acquired pneumonia. Pt positive for parainfluenza 4 virus. Patient is in precautions at this time His lungs are diminished with expiratory wheezing heard in all banks. Oxygen as needed to maintain sats greater than 92%. Patient normally wears 3 L oxygen at home continuously. Continue duo nebs, Symbicort, IV Solu-Medrol, Singulair, and Levaquin IV. Continue continuous pulse ox. Qualifiers: Pneumonia type: due to unspecified organism Laterality: right Lung location: unspecified part of lung Qualified Code(s): J18.9 - Pneumonia, unspecified organism (2) COPD (chronic obstructive pulmonary disease) Current Visit: Yes Status: Chronic Assessment and plan: Plan as above. Continue O2, nebs, antibiotics, steroids. Culture sputum. Qualifiers: COPD type: unspecified COPD Qualified Code(s): J44.9 - Chronic obstructive pulmonary disease, unspecified (3) HTN (hypertension) Current Visit: Yes Status: Chronic Assessment and plan: Continue home medications. Monitor vital signs. Well controlled in hospital setting. Qualifiers: Hypertension type: essential hypertension Qualified Code(s): I10 - Essential (primary) hypertension (4) Obstructive sleep apnea Current Visit: Yes Status: Chronic Assessment and plan: Continue BiPAP while admitted. pt will continue at home after discharge. (5) GERD (gastroesophageal reflux disease) Current Visit: Yes Status: Chronic Assessment and plan: Chronic. Continue Prilosec Qualifiers: Esophagitis presence: esophagitis presence not specified Qualified Code(s) : K21.9 - Gastro-esophageal reflux disease without esophagitis (6) Borderline diabetes Current Visit: Yes Status: Chronic Assessment and plan: Continue to monitor accuchecks achs, diabetic diet, and use SSI to control blood glucose. (7) Obesity Current Visit: No Status: Acute Assessment and plan: Chronic. Lifestyle changes. Qualifiers: Obesity type: unspecified obesity type Obesity classification: adult class 3 (BMI >= 40) Serious obesity comorbidity presence: unspecified whether serious comorbidity present Body mass index: BMI 40.0-44.9 Qualified Code(s) : E66.9 - Obesity, unspecified; Z68.41 - Body mass index (BMI) 40.0-44.9, adult (8) Chronic hypoxemic respiratory failure Current Visit: Yes Status: Chronic Assessment and plan: Pt requires supplemental 02 at home. Normally wears 3L 02 at all times, no 02 demand above his baseline. Continue to monitor and titrate as needed. Will attempt to wean tomorrow. (9) DVT prophylaxis Current Visit: Yes Status: Acute Assessment and plan: Lovenox SQ. Pt is up in chair as needed. (10) Infection due to parainfluenza virus 4 Current Visit: Yes Status: Acute Assessment and plan: Viral swab indicated parainfluenza virus 4. Patient is in isolation. Education has been completed. Treat symptoms, antivirals ineffective against this virus. - Subjective Interval history: Was seen and assessed at 1315. He is alert and oriented and sitting up in the chair at the bedside. He states that he feels somewhat better than he did yesterday. Reports productive cough. Pt states that he is not ready to go home. There is no change in physical exam from yesterday. He denies headache, blurred vision, lightheadedness, fever, chills, diaphoresis, abdominal pain, nausea, vomiting, diarrhea. - Constitutional Vitals: Temp Pulse Resp BP Pulse Ox 97.6 F 86 14 134/74 95 07/09/17 11:48 07/09/17 11:48 07/09/17 11:48 07/09/17 11:48 07/09/17 11:48 General appearance: Present: cooperative, A&O X 3, morbidly obese, pleasant, no acute distress, answers questions appropriately - Head Head exam: Present: atraumatic, normal inspection, normocephalic - Eye Eye exam: Present: normal appearance, conjuntiva pink, sclera anicteric - Neck Neck exam general surgery: Present: supple, trachea midline. Absent: lymphadenopathy, tenderness - Respiratory Respiratory exam: Present: chest wall tenderness, CTAB. Absent: accessory muscle use, rales, rhonchi, wheezes - Cardiovascular Cardiovascular exam: Present: RRR, +S1, +S2. Absent: diastolic murmur, gallop, rubs, systolic murmur - GI/Abdominal GI/Abdominal exam: Present: normal bowel sounds, soft, no peritoneal signs. Absent: distended, hepatomegaly, tenderness - Extremities Exam Extremities exam: Present: pedal edema, warm, radial pulses palpable and symmetrical. Absent: calf tenderness, cyanotic, normal capillary refill - Neurological Exam Neurological exam: Present: alert, oriented X3, no focal deficits. Absent: facial droop, speech deficit - Skin Skin exam: Present: dry, intact, normal color, warm. Absent: rash Internal Medicine: Result - Labs CBC & Chem 7: 07/09/17 12:43 07/08/17 12:57 Labs: Short CBC 07/09/17 Range/Units 12:43 WBC 14.2 H (4.3-11.1) K/mcL Hgb 12.0 L (12.9-16.9) g/dL Hct 39.1 (37.5-50.1) % Plt Count 467 H (140-400) K/mcL Neutrophils # 11.8 H (1.6-8.9) K/mcL - ABG Interpretation ABG results: PT/INR, D-dimer PT 13.4 Seconds (9.4-12.1) H 07/05/17 08:55 Consult Discharge Plan - Plan Referrals: Jesus Machuca DO [Primary Care Provider] - 07/08/17 2:00 pm
[2017-07-09] MEDS: Psyllium 1 PACKET POWD.PACK PO SCH (22:03)
[2017-07-09] MEDS: Melatonin 3 MG TABLET PO SCH (22:04)
[2017-07-10] MEDS: Ipratropium/Albuterol Neb 3 ML IH SCH ×6 (04:19→23:00)
[2017-07-10 04:31] LABS: Basophils # 0.1 K/mcL (0.0-0.2); Basophils % 0.5 %; Eosinophils % 0.1 %; Hematocrit 37.1 % (37.5-50.1); Hemoglobin 11.4 g/dL (12.9-16.9); Immature Granulocytes % 3.8 % (0-4); Lymphocytes % 7.2 %; Mean Corpuscular HGB Conc 30.7 g/dL (31.6-35.5); Mean Corpuscular Hemoglobin 25.1 pg (28.0-33.3); Mean Corpuscular Volume 81.7 fL (83.0-100.0); Mean Platelet Volume 8.8 fL (9.4-12.4); Monocytes # 1.1 K/mcL (0.0-1.3); Monocytes % 7.6 %; Neutrophils # 11.1 K/mcL (1.6-8.9); Platelet Count 364 K/mcL (140-400); Red Blood Count 4.54 M/mcL (4.19-5.50); Red Cell Distribution Width 15.9 % (11.5-14.5); Segmented Neutrophils % 80.8 %
[2017-07-10 04:49] LABS: BUN/Creatinine Ratio 28 (6-26); Blood Urea Nitrogen 33 mg/dL (8-26); Calcium 9.4 mg/dL (8.6-10.8); Carbon Dioxide 27 mEq/L (19-29); Chloride 99 mEq/L (98-109); Glucose 169 mg/dL (70-99); Osmolality,Calculated 295 (280-300); Potassium 4.4 mEq/L (3.5-4.5); Sodium 137 mEq/L (136-145); eGFR For African Americans > 60 (> 60); eGFR For Non-African Americans > 60 (> 60)
[2017-07-10] MEDS: *HR* Enoxaparin 40 MG/0.4 ML SYRINGE SQ SCH (05:22)
[2017-07-10] MEDS: *HR* OxyCODONE/APAP 10/325 TABLET PO PRN ×3 (05:22→22:56)
[2017-07-10] MEDS: MethylPREDNISolone 40 MG/ML VIAL IVP SCH ×3 (05:22→21:14)
[2017-07-10] MEDS: Saline Nasal Spray 44 ML BOTTLE NS PRN (06:29)
[2017-07-10] MEDS: Fluticasone Propionate Nasal 50 MCG/SPRAY BOTTLE NS SCH (08:56)
[2017-07-10] MEDS: Insulin LISPRO 300 UNITS/3 ML VIAL SQ SCH ×4 (08:57→21:28)
[2017-07-10] MEDS: Furosemide 40 MG TABLET PO SCH ×2 (08:57→18:20)
[2017-07-10] MEDS: clonazePAM 0.5 MG TABLET PO PRN ×2 (09:13→21:26)
[2017-07-10] MEDS: Acetylcysteine 10% 2 ML INHSOL IH SCH ×5 (10:43→23:00)
[2017-07-10] MEDS: Budesonide/Formoterol 160/4.5 MDI IH SCH ×2 (10:52→20:03)
[2017-07-10] MEDS: Levofloxacin 750 MG/150 ML 750 MG/150 ML BAG IVPB SCH (12:39)
--- NOTE | 2017-07-10 16:55 | Internal Med Progress Note ---
Date of Encounter: 07/10/17 Time of Encounter: 10:20 - Assessment and plan (1) Pneumonia Current Visit: Yes Status: Acute Assessment and plan: Per chest x-ray, 2 tiny focal infiltrates in the right lung could represent developing pneumonia. Patient afebrile, leukocytosis is improving again today. He reports productive cough with white sputum that is decreased from days past. Pt states that Mucomyst nebulizer helped. Lungs with faint wheezing, diminished in post lung banks. This is community-acquired pneumonia. Pt positive for parainfluenza 4 virus. Patient is in precautions at this time. Blood cultures are negative. Sputum culture is pending. Oxygen as needed to maintain sats greater than 92%. Patient normally wears 3 L oxygen at home continuously. Continue duo nebs, Symbicort, IV Solu-Medrol, Singulair, Mucomyst nebs, and Levaquin IV. Continue continuous pulse ox. Qualifiers: Pneumonia type: due to unspecified organism Laterality: right Lung location: unspecified part of lung Qualified Code(s): J18.9 - Pneumonia, unspecified organism (2) COPD (chronic obstructive pulmonary disease) Current Visit: Yes Status: Chronic Assessment and plan: Plan as above. Continue O2, nebs, antibiotics, steroids. Culture sputum. Qualifiers: COPD type: unspecified COPD Qualified Code(s): J44.9 - Chronic obstructive pulmonary disease, unspecified (3) HTN (hypertension) Current Visit: Yes Status: Chronic Assessment and plan: Continue home medications. Monitor vital signs. Well controlled in hospital setting. Qualifiers: Hypertension type: essential hypertension Qualified Code(s): I10 - Essential (primary) hypertension (4) Obstructive sleep apnea Current Visit: Yes Status: Chronic Assessment and plan: Continue BiPAP while admitted. pt will continue at home after discharge. Pt currently on bipap at this time. (5) GERD (gastroesophageal reflux disease) Current Visit: Yes Status: Chronic Assessment and plan: Chronic. Continue Prilosec Qualifiers: Esophagitis presence: esophagitis presence not specified Qualified Code(s) : K21.9 - Gastro-esophageal reflux disease without esophagitis (6) Borderline diabetes Current Visit: Yes Status: Chronic Assessment and plan: Continue to monitor accuchecks achs, diabetic diet, and use SSI to control blood glucose. accuchecks only mildly hyperglycemic. Continue to monitor. Pt is on IV steroids. (7) Obesity Current Visit: No Status: Acute Assessment and plan: Chronic. Lifestyle changes. Qualifiers: Obesity type: unspecified obesity type Obesity classification: adult class 3 (BMI >= 40) Serious obesity comorbidity presence: unspecified whether serious comorbidity present Body mass index: BMI 40.0-44.9 Qualified Code(s) : E66.9 - Obesity, unspecified; Z68.41 - Body mass index (BMI) 40.0-44.9, adult (8) Chronic hypoxemic respiratory failure Current Visit: Yes Status: Chronic Assessment and plan: Pt requires supplemental 02 at home. Normally wears 3L 02 at all times, no 02 demand above his baseline. Continue to monitor and titrate as needed. Pt has not had significant improvement, continue to titrate as needed. (9) DVT prophylaxis Current Visit: Yes Status: Acute Assessment and plan: Lovenox SQ. Pt is up in chair as needed. (10) Infection due to parainfluenza virus 4 Current Visit: Yes Status: Acute Assessment and plan: Viral swab indicated parainfluenza virus 4. Patient is in isolation. Education has been completed. Treat symptoms, antivirals ineffective against this virus. - Time Spent With Patient less than 15 minutes - Subjective Interval history: Was seen and assessed at 1020. He is alert and oriented and sitting up in the chair at the bedside. He states that he feels the same as he did yesterday, and is not ready to go home. Reports productive cough, increased since beginning Mucomyst nebulizers. Pt states that he is not ready to go home. There is no change in physical exam from yesterday. He denies headache, blurred vision, lightheadedness, fever, chills, diaphoresis, abdominal pain, nausea, vomiting, diarrhea. - Constitutional Vitals: Temp Pulse Resp BP Pulse Ox 98.2 F 83 16 152/80 98 07/10/17 15:50 07/10/17 15:50 07/10/17 16:30 07/10/17 15:50 07/10/17 16:30 General appearance: Present: cooperative, A&O X 3, morbidly obese, pleasant, no acute distress, answers questions appropriately - Head Head exam: Present: atraumatic, normal inspection, normocephalic - Eye Eye exam: Present: conjuntiva pink, sclera anicteric - Neck Neck exam general surgery: Present: supple, trachea midline. Absent: lymphadenopathy - Respiratory Respiratory exam: Present: decreased breath sounds, CTAB, respiratory distress, wheezes. Absent: accessory muscle use, chest wall tenderness, rales, rhonchi - Cardiovascular Cardiovascular exam: Present: RRR, +S1, +S2. Absent: diastolic murmur, gallop, rubs, systolic murmur - GI/Abdominal GI/Abdominal exam: Present: normal bowel sounds, soft, no peritoneal signs. Absent: distended, hepatomegaly, tenderness - Extremities Exam Extremities exam: Present: pedal edema, warm, radial pulses palpable and symmetrical. Absent: calf tenderness, cyanotic, tenderness - Neurological Exam Neurological exam: Present: alert, oriented X3, no focal deficits. Absent: facial droop, speech deficit - Skin Skin exam: Present: dry, intact, normal color, warm. Absent: rash Internal Medicine: Result - Labs CBC & Chem 7: 07/10/17 03:37 07/10/17 03:37 Labs: Short CBC 07/10/17 Range/Units 03:37 WBC 13.8 H (4.3-11.1) K/mcL Hgb 11.4 L (12.9-16.9) g/dL Hct 37.1 L (37.5-50.1) % Plt Count 364 (140-400) K/mcL Neutrophils # 11.1 H (1.6-8.9) K/mcL BMP 07/10/17 03:37 Sodium 137 Potassium 4.4 Chloride 99 Carbon Dioxide 27 BUN 33 H Creatinine 1.19 Glucose 169 H Calcium 9.4 - ABG Interpretation ABG results: PT/INR, D-dimer PT 13.4 Seconds (9.4-12.1) H 07/05/17 08:55 Consult Discharge Plan - Plan Referrals: Jesus Machuca DO [Primary Care Provider] - 07/08/17 2:00 pm
[2017-07-10] MEDS ORDERED: hydrOXYzine pamoate 25 MG CAPSULE PO ONE (21:00)
[2017-07-10] MEDS: Psyllium 1 PACKET POWD.PACK PO SCH (21:17)
[2017-07-10] MEDS: Melatonin 3 MG TABLET PO SCH (21:17)
[2017-07-11] MEDS: MethylPREDNISolone 40 MG/ML VIAL IVP SCH ×3 (03:28→17:35)
[2017-07-11] MEDS: Ipratropium/Albuterol Neb 3 ML IH SCH ×5 (03:33→20:16)
[2017-07-11] MEDS: Acetylcysteine 10% 2 ML INHSOL IH SCH ×5 (03:33→20:19)
[2017-07-11 05:07] LABS: Hematocrit 37.7 % (37.5-50.1); Hemoglobin 11.3 g/dL (12.9-16.9); Mean Corpuscular Hemoglobin 24.6 pg (28.0-33.3); Mean Corpuscular Volume 82.1 fL (83.0-100.0); Mean Platelet Volume 9.1 fL (9.4-12.4); Platelet Count 387 K/mcL (140-400); Red Blood Count 4.59 M/mcL (4.19-5.50); Red Cell Distribution Width 15.9 % (11.5-14.5)
[2017-07-11] MEDS: *HR* Enoxaparin 40 MG/0.4 ML SYRINGE SQ SCH (05:21)
[2017-07-11 05:24] LABS: BUN/Creatinine Ratio 28 (6-26); Blood Urea Nitrogen 30 mg/dL (8-26); Calcium 9.5 mg/dL (8.6-10.8); Carbon Dioxide 30 mEq/L (19-29); Chloride 100 mEq/L (98-109); Glucose 170 mg/dL (70-99); Osmolality,Calculated 300 (280-300); Potassium 4.4 mEq/L (3.5-4.5); Sodium 140 mEq/L (136-145); eGFR For African Americans > 60 (> 60); eGFR For Non-African Americans > 60 (> 60)
[2017-07-11 06:21] LABS: Hypersegmented Neutrophils Present (Not Present); Lymphocytes # 2.6 K/mcL (0.6-4.6); Monocytes # 1.3 K/mcL (0.0-1.3); Neutrophils # 12.2 K/mcL (1.6-8.9); Platelet Estimate Normal (Normal); Reactive Lymphocytes Present (Not Present)
[2017-07-11 06:22] LABS: Anisocytosis 1+ (Not Present)
[2017-07-11] MEDS: Budesonide/Formoterol 160/4.5 MDI IH SCH ×2 (08:05→20:19)
[2017-07-11] MEDS: Insulin LISPRO 300 UNITS/3 ML VIAL SQ SCH ×4 (08:15→21:47)
[2017-07-11] MEDS: Fluticasone Propionate Nasal 50 MCG/SPRAY BOTTLE NS SCH (08:15)
[2017-07-11] MEDS: Furosemide 40 MG TABLET PO SCH ×2 (08:16→16:46)
[2017-07-11] MEDS: *HR* OxyCODONE/APAP 10/325 TABLET PO PRN ×2 (08:17→16:45)
[2017-07-11] MEDS: Levofloxacin 750 MG/150 ML 750 MG/150 ML BAG IVPB SCH (12:36)
[2017-07-11] MEDS ORDERED: FLUARIX QUAD 2017-18 36MOS UP/PF 0.5 ML SYRINGE IM ONE (12:58)
[2017-07-11] MEDS ORDERED: Pneumoccal 13-Valent Vaccine 0.5 ML SYRINGE IM ONE (13:13)
[2017-07-11] MEDS ORDERED: Azithromycin 500 MG in D5% in Water 250 ML IVPB SCH (15:00)
--- NOTE | 2017-07-11 16:22 | Internal Med Progress Note ---
Date of Encounter: 07/11/17 Time of Encounter: 14:15 - Assessment and plan (1) Pneumonia Current Visit: Yes Status: Acute Assessment and plan: Per chest x-ray, persistent opacity in the RMLL concerning for pneumonia. Leukocytosis increased today. He reports productive cough with white sputum that is decreased from days past. Pt states that Mucomyst nebulizer helped. Lungs diminished, wheezing has improved,he is in no distress. This is community- acquired pneumonia. Pt positive for parainfluenza 4 virus. Patient is in precautions at this time. Blood cultures are negative. Sputum culture initial is negative. I have decreased steroids to Solu-Medrol 40mg BID. Continue to deescalate. Oxygen as needed to maintain sats greater than 92%. Patient normally wears 3 L oxygen at home continuously. Continue duo nebs, Symbicort, IV Solu-Medrol, Singulair, Mucomyst nebs. Continue continuous pulse ox. Rocephin 1 gram IV daily and Azithromycin 500mg IV daily If pt improves, he most likely can be discharged tomorrow. Qualifiers: Pneumonia type: due to unspecified organism Laterality: right Lung location: unspecified part of lung Qualified Code(s): J18.9 - Pneumonia, unspecified organism (2) COPD (chronic obstructive pulmonary disease) Current Visit: Yes Status: Chronic Assessment and plan: Plan as above. Continue O2, nebs, antibiotics, steroids. Culture sputum. Qualifiers: COPD type: unspecified COPD Qualified Code(s): J44.9 - Chronic obstructive pulmonary disease, unspecified (3) HTN (hypertension) Current Visit: Yes Status: Chronic Assessment and plan: Continue home medications. Monitor vital signs. Well controlled in hospital setting. Qualifiers: Hypertension type: essential hypertension Qualified Code(s): I10 - Essential (primary) hypertension (4) Obstructive sleep apnea Current Visit: Yes Status: Chronic Assessment and plan: Continue BiPAP at night while admitted. pt will continue at home after discharge. (5) GERD (gastroesophageal reflux disease) Current Visit: Yes Status: Chronic Assessment and plan: Chronic. Continue Prilosec Qualifiers: Esophagitis presence: esophagitis presence not specified Qualified Code(s) : K21.9 - Gastro-esophageal reflux disease without esophagitis (6) Borderline diabetes Current Visit: Yes Status: Chronic Assessment and plan: Continue to monitor accuchecks achs, diabetic diet, and use SSI to control blood glucose. accuchecks only mildly hyperglycemic. Continue to monitor. Pt is on IV steroids. (7) Obesity Current Visit: No Status: Acute Assessment and plan: Chronic. Lifestyle changes. Qualifiers: Obesity type: unspecified obesity type Obesity classification: adult class 3 (BMI >= 40) Serious obesity comorbidity presence: unspecified whether serious comorbidity present Body mass index: BMI 40.0-44.9 Qualified Code(s) : E66.9 - Obesity, unspecified; Z68.41 - Body mass index (BMI) 40.0-44.9, adult (8) Chronic hypoxemic respiratory failure Current Visit: Yes Status: Chronic Assessment and plan: Pt requires supplemental 02 at home. Normally wears 3L 02 at all times, no 02 demand above his baseline. Continue to monitor and titrate as needed. (9) DVT prophylaxis Current Visit: Yes Status: Acute Assessment and plan: Lovenox SQ. Pt is up in chair as needed. Pt amb to and from bathroom. (10) Infection due to parainfluenza virus 4 Current Visit: Yes Status: Acute Assessment and plan: Maintain isolation and treat symptoms. - Time Spent With Patient less than 15 minutes - Subjective Interval history: Was seen and assessed at 1415. He is alert and oriented and sitting up in the chair at the bedside. He states that he better than he did yesterday, and is ready to go home. Reports productive cough, increased since beginning Mucomyst nebulizers. Lungs are diminshed, wheezing has improved. He is not distress. He denies headache, blurred vision, lightheadedness, fever, chills, diaphoresis, abdominal pain, nausea, vomiting, diarrhea. - Constitutional Vitals: Temp Pulse Resp BP Pulse Ox 97.8 F 80 16 151/83 92 07/11/17 15:02 07/11/17 15:02 07/11/17 15:02 07/11/17 15:02 07/11/17 15:02 General appearance: Present: cooperative, A&O X 3, morbidly obese, pleasant, no acute distress, answers questions appropriately - Head Head exam: Present: atraumatic, normal inspection, normocephalic - Eye Eye exam: Present: normal appearance, conjuntiva pink, sclera anicteric - Neck Neck exam general surgery: Present: supple, trachea midline. Absent: lymphadenopathy - Respiratory Respiratory exam: Present: decreased breath sounds, CTAB. Absent: accessory muscle use, chest wall tenderness, rales, rhonchi, wheezes - Cardiovascular Cardiovascular exam: Present: RRR, +S1, +S2. Absent: diastolic murmur, gallop, rubs, systolic murmur - GI/Abdominal GI/Abdominal exam: Present: normal bowel sounds, soft, no peritoneal signs. Absent: distended, hepatomegaly, tenderness - Extremities Exam Extremities exam: Present: normal capillary refill, pedal edema, warm, radial pulses palpable and symmetrical. Absent: calf tenderness, cyanotic - Neurological Exam Neurological exam: Present: alert, oriented X3, no focal deficits. Absent: facial droop, speech deficit - Skin Skin exam: Present: dry, intact, normal color, warm. Absent: rash Internal Medicine: Result - Labs CBC & Chem 7: 07/11/17 04:06 07/11/17 04:06 Labs: Short CBC 07/11/17 Range/Units 04:06 WBC 16.0 H (4.3-11.1) K/mcL Hgb 11.3 L (12.9-16.9) g/dL Hct 37.7 (37.5-50.1) % Plt Count 387 (140-400) K/mcL Neutrophils # 12.2 H (1.6-8.9) K/mcL BMP 07/11/17 04:06 Sodium 140 Potassium 4.4 Chloride 100 Carbon Dioxide 30 H BUN 30 H Creatinine 1.07 Glucose 170 H Calcium 9.5 - ABG Interpretation ABG results: PT/INR, D-dimer PT 13.4 Seconds (9.4-12.1) H 07/05/17 08:55 - Impressions Impressions Chest X-Ray 07/10/17 16:54 IMPRESSION: Persistent opacity in the right mid lower lung zone, concerning for pneumonia. Recommend follow-up radiographs in 3-4 weeks to document resolution. D/ / Eze Galindo MD / Eze Galindo MD Interpreting Provider: Eze Galindo MD Consult Discharge Plan - Plan Instructions: Influenza Virus Vaccine (Injection), Pneumococcal Polyvalent Vaccine (Injection) Referrals: Jesus Machuca DO [Primary Care Provider] - 07/08/17 2:00 pm
[2017-07-11] MEDS: clonazePAM 0.5 MG TABLET PO PRN (20:54)
[2017-07-11] MEDS: Melatonin 3 MG TABLET PO SCH (20:54)
[2017-07-11] MEDS: Psyllium 1 PACKET POWD.PACK PO SCH (20:56)
[2017-07-12] MEDS: Acetylcysteine 10% 2 ML INHSOL IH SCH ×4 (00:35→11:38)
[2017-07-12] MEDS: Ipratropium/Albuterol Neb 3 ML IH SCH ×4 (00:35→11:38)
[2017-07-12] MEDS: *HR* Enoxaparin 40 MG/0.4 ML SYRINGE SQ SCH (05:28)
[2017-07-12] MEDS: MethylPREDNISolone 40 MG/ML VIAL IVP SCH (05:29)
[2017-07-12] MEDS: *HR* OxyCODONE/APAP 10/325 TABLET PO PRN (05:44)
[2017-07-12 07:03] LABS: Hematocrit 37.7 % (37.5-50.1); Hemoglobin 11.8 g/dL (12.9-16.9); Mean Corpuscular HGB Conc 31.3 g/dL (31.6-35.5); Mean Corpuscular Hemoglobin 25.6 pg (28.0-33.3); Mean Corpuscular Volume 81.8 fL (83.0-100.0); Mean Platelet Volume 8.9 fL (9.4-12.4); Platelet Count 373 K/mcL (140-400); Red Blood Count 4.61 M/mcL (4.19-5.50); Red Cell Distribution Width 15.9 % (11.5-14.5)
[2017-07-12 07:06] LABS: BUN/Creatinine Ratio 34 (6-26); Blood Urea Nitrogen 31 mg/dL (8-26); Calcium 9.4 mg/dL (8.6-10.8); Carbon Dioxide 30 mEq/L (19-29); Chloride 99 mEq/L (98-109); Glucose 127 mg/dL (70-99); Osmolality,Calculated 296 (280-300); Potassium 3.8 mEq/L (3.5-4.5); Sodium 139 mEq/L (136-145); eGFR For African Americans > 60 (> 60); eGFR For Non-African Americans > 60 (> 60)
[2017-07-12 07:18] VITALS: BP 153/76
[2017-07-12 07:35] LABS: Eosinophils # 0.2 K/mcL (0.0-0.6); Monocytes # 0.7 K/mcL (0.0-1.3); Neutrophils # 12.5 K/mcL (1.6-8.9)
[2017-07-12 07:36] LABS: Platelet Estimate Normal (Normal)
[2017-07-12] MEDS: Furosemide 40 MG TABLET PO SCH (09:02)
[2017-07-12] MEDS: Insulin LISPRO 300 UNITS/3 ML VIAL SQ SCH (09:02)
[2017-07-12] MEDS: Budesonide/Formoterol 160/4.5 MDI IH SCH (09:14)
--- NOTE | 2017-07-12 09:54 | Discharge Summary ---
Date of Encounter: 07/12/17 Time of Encounter: 09:52 - Discharge Diagnosis (1) Pneumonia Priority: Primary Status: Acute Qualifiers: Pneumonia type: due to unspecified organism Laterality: right Lung location: unspecified part of lung Qualified Code(s): J18.9 - Pneumonia, unspecified organism (2) Chronic hypoxemic respiratory failure Priority: Secondary Status: Chronic (3) COPD (chronic obstructive pulmonary disease) Priority: Secondary Status: Chronic Qualifiers: COPD type: unspecified COPD Qualified Code(s): J44.9 - Chronic obstructive pulmonary disease, unspecified (4) DVT prophylaxis Priority: Secondary Status: Acute (5) HTN (hypertension) Priority: Secondary Status: Chronic Qualifiers: Hypertension type: essential hypertension Qualified Code(s): I10 - Essential (primary) hypertension (6) Infection due to parainfluenza virus 4 Priority: Secondary Status: Acute (7) Obesity Priority: Secondary Status: Acute Qualifiers: Obesity type: unspecified obesity type Obesity classification: adult class 3 (BMI >= 40) Serious obesity comorbidity presence: unspecified whether serious comorbidity present Body mass index: BMI 40.0-44.9 Qualified Code(s) : E66.9 - Obesity, unspecified; Z68.41 - Body mass index (BMI) 40.0-44.9, adult ; Z68.41 - Body mass index (BMI) 40.0-44.9, adult; Z68.41 - Body mass index (BMI ) 40.0-44.9, adult; Z68.41 - Body mass index (BMI) 40.0-44.9, adult (8) Obstructive sleep apnea Priority: Secondary Status: Chronic - Discharge Medications Prescriptions: Cefdinir [Omnicef] 300 mg PO BID #14 capsule Doxycycline Hyclate 100 mg PO BID #14 tablet OxyCODONE/APAP 10/325 [Percocet 10/325 MG] 1 each PO Q8H PRN #14 tablet PRN Reason: Pain predniSONE [PredniSONE] 40 mg PO DAILY 8 Days tablet Home Medications: Albuterol Sulfate [Albuterol Inhaler] 2 puff IH Q4HR PRN 03/16/16 [History] Azelastine 0.1% Nasal Joice [Astelin] 1 spray NS BID 03/16/16 [History] Budesonide/Formoterol 160/4.5 [Symbicort 160/4.5] 2 puff IH BIDR 03/16/16 [ History] Ergocalciferol (VITAMIN D2) [Vitamin D] 400 unit PO DAILY 03/16/16 [History] Esomeprazole Magnesium [Nexium] 40 mg PO BID 03/16/16 [History] Fluticasone Propionate Nasal [Flonase] 2 spray NS DAILY 03/16/16 [History] Ketoconazole Shampoo [Nizoral Shampoo] 1 appl TP 3XW 03/16/16 [History] Psyllium Seed (with Sugar) [Metamucil Powder] 1 each PO HS 03/16/16 [History] Roflumilast [Daliresp] 500 mcg PO DAILY 03/16/16 [History] Sodium Chloride [[place] Saline] 1 spray NS BID PRN 03/16/16 [History] Montelukast [Singulair] 10 mg PO HS #30 tablet 09/30/16 [Rx] Metoclopramide [Reglan] 10 mg PO ACHS 11/03/16 [History] Umeclidinium [place] [Incruse Ellipta] 1 puff IH DAILY 11/03/16 [History] Oxygen 3 l .ROUTE AD 11/20/16 [History] Losartan [Cozaar] 25 mg PO DAILY #30 tablet 12/10/16 [Rx] Furosemide [Lasix] 40 mg PO BID #60 tablet 01/06/17 [Rx] Cetirizine HCl [Zyrtec] 10 mg PO DAILY PRN #0 01/27/17 [Rx] Magnesium Oxide [Mag-Ox] 400 mg PO DAILY #15 tablet 01/27/17 [Rx] Potassium Chloride 20 meq PO DAILY #15 tab.er.prt 01/27/17 [Rx] Sodium Chloride [Mesalt] 1 each TP DAILY 30 Days bandage 02/06/17 [Rx] Metoprolol [Lopressor] 25 mg PO BID 07/05/17 [History] Sennosides/Docusate Sodium [Senna Plus] 6 each PO HS 07/05/17 [History] predniSONE [PredniSONE] 5 mg PO DAILY 07/05/17 [History] Cefdinir [Omnicef] 300 mg PO BID #14 capsule 07/12/17 [Rx] Doxycycline Hyclate 100 mg PO BID #14 tablet 07/12/17 [Rx] OxyCODONE/APAP 10/325 [Percocet 10/325 MG] 1 each PO Q8H PRN #14 tablet [Rx] predniSONE [PredniSONE] 40 mg PO DAILY 8 Days tablet 07/12/17 [Rx] Allergies/Adverse Reactions: 3 Allergy/AdvReac Type Severity Reaction Status Date / Time morphine Allergy Difficulty Verified 07/05/17 08:24 Breathing sulfamethoxazole Allergy Hives Verified 07/05/17 08:24 [From Bactrim] trimethoprim [From Bactrim] Allergy Hives Verified 07/05/17 08:24 codeine AdvReac Nausea Verified 07/05/17 08:24 Date of admission: 07/05/17 18:01 Primary care physician: Jesus Machuca DO Discharging clinician: Andrea Singh Anticipated date of discharge: 07/12/17 - Patient Status Disposition: Home, Self-Care Condition: Good Functional capacity at discharge: independent ambulation Overall status at discharge: patient is progressing back to baseline - Discharge Instructions Instructions: Influenza Virus Vaccine (Injection), Pneumococcal Polyvalent Vaccine (Injection), Chronic Obstructive Pulmonary Disease (DC), Pneumonia (DC) Follow Up With: Jesus Machuca DO [Primary Care Provider] - 07/08/17 2:00 pm (in 1 week) - Diet and Activity Activity: increase activity as tolerated, wear oxygen at all times Diet: diabetic diet, low fat, low cholesterol, low salt diet Hospital course: Mr. Herring is a 62 year old male patient with history of COPD and chronic respiratory failure, obstructive sleep apnea, diabetes and hypertension who was hospitalized here with a pneumonia involving the right middle lobe and lower lobe. He was treated with IV antibiotics and O2 supplementation along with intravenous steroids for COPD. His respiratory panel was positive for parainfluenza 4. Patient has slowly improved with this treatment regimen and is currently back on his baseline oxygen. He is clinically stable for discharge home and will be discharged on a steroid taper along with Omnicef and doxycycline. He will continue to use home oxygen and BiPAP while lying down. He is advised to return to the ER if he develops any fever chills or night sweats and worsening respiratory symptoms. - Time Spent with Patient Total time spent providing and/or coordinating discharge services: Greater than 30 minutes (40 min) - Constitutional Vitals: Temp Pulse Resp BP Pulse Ox 97.4 F L 69 16 153/76 98 07/12/17 07:17 07/12/17 07:17 07/12/17 09:14 07/12/17 07:17 07/12/17 09:14 General appearance: Present: cooperative, A&O X 3, morbidly obese, pleasant, no acute distress, answers questions appropriately - Neck Neck exam general surgery: Present: supple, trachea midline. Absent: lymphadenopathy - Respiratory Respiratory exam: Present: prolonged expiratory phase, wheezes. Absent: accessory muscle use, rales, rhonchi - Cardiovascular Cardiovascular exam: Present: RRR, +S1, +S2. Absent: diastolic murmur, gallop, rubs, systolic murmur - Extremities Exam Extremities exam: Present: warm, radial pulses palpable and symmetrical. Absent : calf tenderness, cyanotic, pedal edema
[2017-07-12] MEDS: Fluticasone Propionate Nasal 50 MCG/SPRAY BOTTLE NS SCH (10:15)
== END 2017-07-12 12:00 | disposition home or self-care (01) | DRG 190 ==
LOC: 3BNU 08:23 → EMEROO 08:23 → 3BNU 11:01 → SUATTDRO 18:01
PROVIDERS: ADMIT Nurse Practitioner Acute Care; ATTEND Internal Medicine

== ENCOUNTER 2017-09-22 10:31 | Inpatient (IN) ==
[2017-09-22] MEDS ORDERED: Ipratropium/Albuterol Neb 3 ML IH ONE (10:44)
[2017-09-22] MEDS ORDERED: methylPREDNISolone 125 MG/2 ML VIAL IVP ONE (10:44)
--- NOTE | 2017-09-22 10:57 | Emergency Department Note ---
Disposition Clinical Impression: COPD exacerbation, Duodenitis, Lactic acidemia Abdominal pain Qualifiers: Abdominal location: periumbilical Qualified Code(s): R10.33 - Periumbilical pain Disposition: Admitted As Inpatient Condition: Fair Time of Disposition: 18:16 Chest Pain HPI - General Chief Complaint: ED Chest Pain Stated Complaint: chest pain Time Seen by Provider: 09/22/17 10:43 Vital Signs Reviewed: Yes Nursing Notes Reviewed: Yes - History of Present Illness HPI Narrative: 62-year-old male complains of chest pain and shortness of breath that started 3 days ago. Patient states he started having URI symptoms of cough and congestion and sinus pressure and then began to have chest pain right side of his chest sharp no radiation 9/10 in intensity that lasted most of the day. Patient states the pain was nonexertional and did not get worse with exertion and started at rest. Patient states the pain went away on its own about any intervention. It started again today and his shortness of breath worsen. Patient states pleuritic and worse with deep inspiration on the right and now has radiation from right to left. Patient states he does have some reproducible tenderness left parasternal area and currently pain is 6/10 intensity. Patient states he has bilateral lower extremity swelling worse on the right which is normal has no history of blood clots, bleeding disorders, PE. Patient is not on anticoagulants. Patient is on home oxygen at 2 L and has not had to increase his O2 usage. Severity scale (1-10): 6 - Related Data Home Medications Medication Instructions Recorded Confirmed Albuterol Sulfate [Albuterol 2 puff IH Q4HR PRN 03/16/16 09/22/17 Inhaler] Azelastine 0.1% Nasal [place] 1 spray NS BID 03/16/16 09/22/17 [Astelin] Budesonide/Formoterol 160/4.5 2 puff IH BIDR 03/16/16 09/22/17 [Symbicort 160/4.5] Ergocalciferol (VITAMIN D2) 400 unit PO DAILY 03/16/16 09/22/17 [Vitamin D] Esomeprazole Magnesium [Nexium] 40 mg PO BID 03/16/16 09/22/17 Fluticasone Propionate Nasal 2 spray NS DAILY 03/16/16 09/22/17 [Flonase] Ketoconazole Shampoo [Nizoral 1 appl TP 3XW 03/16/16 09/22/17 Shampoo] Psyllium Seed (with Sugar) 1 each PO HS 03/16/16 09/22/17 [Metamucil Powder] Roflumilast [Daliresp] 500 mcg PO DAILY 03/16/16 09/22/17 Sodium Chloride [Artemus Saline] 1 spray NS BID PRN 03/16/16 09/22/17 Metoclopramide [Reglan] 10 mg PO BID PRN 11/03/16 09/22/17 Umeclidinium [place] [Incruse 1 puff IH DAILY 11/03/16 09/22/17 Ellipta] Oxygen 3 l .ROUTE AD 11/20/16 09/22/17 Metoprolol [Lopressor] 25 mg PO BID 07/05/17 09/22/17 predniSONE [PredniSONE] 5 mg PO DAILY 07/05/17 09/22/17 Acetaminophen [Tylenol] 1,000 mg PO BID PRN 09/22/17 09/22/17 Aspirin 81 mg PO DAILY 09/22/17 09/22/17 Clotrimazole 1% CRM [Lotrimin 1%] 1 appl TP BID 09/22/17 09/22/17 Docusate Sodium [Dok] 300 mg PO QAM 09/22/17 09/22/17 Docusate Sodium [Dok] 600 mg PO QPM 09/22/17 09/22/17 Guaifenesin [Mucinex] 400 mg PO Q12H PRN 09/22/17 09/22/17 Ipratropium/Albuterol Neb [Duoneb] 3 ml IH Q4H PRN 09/22/17 09/22/17 Mv-Mn/FA/Vit K/Lycop/Lut/Coq10 1 tab PO DAILY 09/22/17 09/22/17 [Daily Multivitamin Capsule] Ondansetron HCl [Zofran] 4 mg PO Q4H PRN 09/22/17 09/22/17 clonazePAM [Klonopin] 0.5 mg PO TID PRN 09/22/17 09/22/17 Previous Rx's Medication Instructions Recorded Losartan [Cozaar] 25 mg PO DAILY #30 tablet 12/10/16 Cetirizine HCl [Zyrtec] 10 mg PO DAILY PRN #0 01/27/17 Magnesium Oxide [Mag-Ox] 400 mg PO DAILY #15 tablet 01/27/17 Potassium Chloride 20 meq PO DAILY #15 tab.er.prt 01/27/17 OxyCODONE/APAP 10/325 [Percocet 1 each PO Q8H PRN #14 tablet 07/12/17 10/325 MG] Allergies Allergy/AdvReac Type Severity Reaction Status Date / Time morphine Allergy Difficulty Verified 09/22/17 16:19 Breathing sulfamethoxazole Allergy Hives Verified 09/22/17 16:19 [From Bactrim] trimethoprim [From Bactrim] Allergy Hives Verified 09/22/17 16:19 codeine AdvReac Nausea Verified 09/22/17 16:19 All systems ED: reviewed and negative except as stated. Review of Systems: As Per HPI Constitutional: Denies: fever, chills, weakness Eyes: Denies: vision change ENT ED: Reports: congestion. Denies: throat pain Cardiovascular: Reports: chest pain, edema. Denies: palpitations, dyspnea on exertion, orthopnea Respiratory: Reports: cough, dyspnea. Denies: wheezes Gastrointestinal: Reports: abdominal pain. Denies: nausea, vomiting, diarrhea Genitourinary: Denies: urgency, dysuria, frequency, hematuria Musculoskeletal: Denies: back pain, neck pain Integumentary: Denies: rash Neurological: Denies: headache, weakness, numbness, paresthesias Endocrine: Denies: fatigue Hematological/Lymphatic: Denies: easy bleeding Chest Pain PMH - Past Medical History Medical history: Reports: cardiomyopathy, COPD, diabetes, GERD, hypertension, other Surgical history: Reports: cataract, herniorrhaphy, other Psychiatric history: Reports: anxiety, depression - Social History Smoking Status: Former smoker Alcohol use: Reports: rarely Drug use: Reports: none Physical Exam Vital Signs Temperature 98 F 09/22/17 10:32 Pulse Rate 99 09/22/17 10:32 Respiratory Rate 18 09/22/17 10:32 Blood Pressure 136/76 09/22/17 10:32 O2 Sat by Pulse Oximetry 98 09/22/17 10:32 Temperature 98 F 09/22/17 10:32 Pulse Rate 99 09/22/17 10:32 Respiratory Rate 18 09/22/17 10:32 Blood Pressure 136/76 09/22/17 10:32 O2 Sat by Pulse Oximetry 98 09/22/17 10:32 Oxygen Delivery Oxygen Delivery Nasal Cannula 62-year-old male who is alert and oriented 3 and in no acute distress. Patient is nontoxic appearing. Patient does have mild conversational dyspnea. Patient does sound a bit winded but is not having excessive work to breathe. Respirations currently 18, patient's afebrile, heart rate 99 and in normal sinus rhythm per EKG. Patient is also normotensive O2 sat 98% on 2 L nasal cannula - General Limitations: no limitations General appearance: alert, in no apparent distress - Head Head exam: atraumatic, normocephalic, normal inspection - Eye Eye exam: Present: normal appearance, PERRL, EOMI - ENT ENT exam: normal exam, normal oropharynx, mucous membranes moist - Neck Neck exam: Present: normal inspection, full ROM, trachea midline. Absent: tenderness - Chest Chest inspection: Present: normal inspection, symmetric chest wall rise - Respiratory Respiratory exam: Absent: respiratory distress, wheezes, stridor, accessory muscle use - Cardiovascular Cardiovascular exam: Present: regular rate, normal rhythm, normal heart sounds - Abdominal Exam Abdominal exam: Present: soft, Non-Tender, normal bowel sounds. Absent: tenderness, distention, guarding, rebound, rigidity - Extremities Exam Extremities exam: Present: pedal edema (1+). Absent: tenderness - Back Exam Back exam: Present: normal inspection, full ROM. Absent: tenderness, CVA tenderness (R), CVA tenderness (L) - Neurological Exam Neurological exam: Present: alert, oriented X3 - Skin Skin exam: Present: warm, dry, intact, normal color Course Vital Signs Temperature 98 F 09/22/17 10:32 Pulse Rate 99 09/22/17 10:32 Respiratory Rate 18 09/22/17 10:32 Blood Pressure 136/76 09/22/17 10:32 O2 Sat by Pulse Oximetry 98 09/22/17 10:32 Temperature 98.6 F 09/22/17 18:51 Pulse Rate 116 09/22/17 18:51 Respiratory Rate 21 09/22/17 18:51 Blood Pressure 157/88 09/22/17 18:51 O2 Sat by Pulse Oximetry 95 09/22/17 18:51 Oxygen Delivery Oxygen Delivery Nasal Cannula Chest Pain - MDM Narrative Medical decision making narrative: Differential diagnosis: Primarily a COPD exacerbation possibly CHF exacerbation , work to rule out ACS/RI. The patient does not get better with treatment will consider PE and workup appropriately. Currently investigating causes for exacerbation to include viral URI/bronchitis, pneumonia. 1125 hrs.: The patient started on DuoNeb therapy. Patient was down at x-ray which delayed initiation of DuoNeb. 1208 hrs: Patient's labs show lactic acidemia of 3.3 and Patient started on 1 L of saline for elevation of lactic acid, WBC of 16.0. Chest x-ray shows atelectasis or source for pneumonia. Patient's had DuoNeb therapy still feels short of breath. Review of patient's chest x-ray shows suspicious area left lower lung which requires clarification. Patient being sent for CT chest without contrast. Cultures of the ordered and patient has no elevation of BNP. 1354 hrs.: On reexamination patient states his breathing is much improved, but now he complains of worsening of his abdominal pain for which he now states it is 8/10 and would like some pain medication. On initial exam patient had mild discomfort for which she says was normal for him around his umbilicus where he has a surgical scar from prior hernia repair. Patient will be administered 100 g of fentanyl and Zofran to prevent any nausea/vomiting. Patient will also be sent for CT abdomen and pelvis with IV contrast which has been ordered. CT chest showed no findings of pneumonia. Abdominal CT shows concern for obstruction and inflammation of small bowel proximal to umbilical hernia. Patient has no nausea vomiting and is still passing gas and had a normal bowel movement earlier today. Patient is clinically not obstructed. I did speak with Dr. Jones of Gen. surgery who is familiar with the patient and he states that patient should be admitted to medicine watch closely and consult them if patient starts having clinical signs of obstruction or worsening abdominal pain. Patient received his 30 mg/kg IV normal fluid bolus. Patient currently has no abdominal pain. Patient is breathing better after his DuoNeb therapy. Patient was started on levofloxacin and Flagyl. Patient understands and accepts the suspicion for admission for further evaluation. Dr. Roblero the hospitalist has accepted patient for admission at 1624 hours - Lab Data Lab results reviewed: Yes I reviewed the patient's lab results. Lab results narrative: Short CBC 09/22/17 Range/Units 11:04 WBC 16.0 H (4.3-11.1) K/mcL Hgb 11.4 L (12.9-16.9) g/dL Hct 36.2 L (37.5-50.1) % Plt Count 378 (140-400) K/mcL Neutrophils # 13.3 H (1.6-8.9) K/mcL BMP 09/22/17 Range/Units 11:04 Sodium 138 (136-145) mEq/L Potassium 4.0 (3.5-4.5) mEq/L Chloride 105 (98-109) mEq/L Carbon Dioxide 22 (19-29) mEq/L BUN 14 (8-26) mg/dL Creatinine 0.92 (0.72-1.25) mg/dL Glucose 132 H (70-99) mg/dL Calcium 9.3 (8.6-10.8) mg/dL Cardiac Enzymes 09/22/17 Range/Units 11:04 Troponin I 0.00 (0-0.03) ng/mL Liver Function 09/22/17 Range/Units 11:04 Total Bilirubin 0.3 (0.2-1.2) mg/dL Direct Bilirubin 0.1 (0.0-0.5) mg/dL AST 16 (5-34) Units/L ALT 19 (0-55) Units/L Alkaline Phosphatase 98 (38-126) Units/L Albumin 3.2 L (3.5-5.0) g/dL Urine 09/22/17 Range/Units 13:25 Urine Color Yellow (Yellow) Urine Clarity Clear (Clear) Urine pH 6.0 (5.0-8.0) pH Units Ur Specific [place] 1.017 (1.010-1.025) Urine Protein Negative (Neg-Trace) mg/dL Urine Glucose (UA) Normal (Normal) mg/dL Result diagrams: 09/22/17 11:04 09/22/17 11:04 Lab Results 09/22/17 09/22/17 09/22/17 Range/Units 11:04 11:04 11:04 WBC 16.0 H (4.3-11.1) K/mcL RBC 4.40 (4.19-5.50) M/mcL Hgb 11.4 L (12.9-16.9) g/dL Hct 36.2 L (37.5-50.1) % MCV 82.3 L (83.0-100.0) fL MCH 25.9 L (28.0-33.3) pg MCHC 31.5 L (31.6-35.5) g/dL RDW 16.4 H (11.5-14.5) % Plt Count 378 (140-400) K/mcL MPV 8.6 L (9.4-12.4) fL Immature Gran % 1.1 (0-4) % Seg Neutrophils % 82.9 % Lymphocytes % 8.9 % Monocytes % 5.4 % Eosinophils % 1.1 % Basophils % 0.6 % Neutrophils # 13.3 H (1.6-8.9) K/mcL Lymphocytes # 1.4 (0.6-4.6) K/mcL Monocytes # 0.9 (0.0-1.3) K/mcL Eosinophils # 0.2 (0.0-0.6) K/mcL Basophils # 0.1 (0.0-0.2) K/mcL VBG pH (7.32-7.42) pH Units VBG pCO2 (41-51) mmHg VBG pO2 (25-50) mmHg VBG HCO3 (21-27) mEq/L Sodium 138 (136-145) mEq/L Potassium 4.0 (3.5-4.5) mEq/L Chloride 105 (98-109) mEq/L Carbon Dioxide 22 (19-29) mEq/L BUN 14 (8-26) mg/dL Creatinine 0.92 (0.72-1.25) mg/dL Est GFR ( Amer) > 60 (> 60) Est GFR (Non-Af Amer) > 60 (> 60) BUN/Creatinine Ratio 15 (6-26) Glucose 132 H (70-99) mg/dL Calculated Osmolality 288 (280-300) Lactic Acid 3.3 H (0.5-2.2) mmol/L Calcium 9.3 (8.6-10.8) mg/dL Total Bilirubin 0.3 (0.2-1.2) mg/dL Direct Bilirubin 0.1 (0.0-0.5) mg/dL Indirect Bilirubin 0.2 (0.0-1.2) mg/dL AST 16 (5-34) Units/L ALT 19 (0-55) Units/L Alkaline Phosphatase 98 (38-126) Units/L Troponin I (0-0.03) ng/mL B-Natriuretic Peptide (0-100) pg/mL Serum Total Protein 8.0 (6.0-8.3) g/dL Albumin 3.2 L (3.5-5.0) g/dL Globulin 4.8 H (2.4-3.5) g/dL Albumin/Globulin Ratio 0.7 L (1.1-2.2) Lipase 25 (8-78) Units/L Urine Color (Yellow) Urine Clarity (Clear) Urine pH (5.0-8.0) pH Units Ur Specific [place] (1.010-1.025) Urine Protein (Neg-Trace) mg/dL Urine Glucose (UA) (Normal) mg/dL Urine Ketones (Negative) mg/dL Urine Blood (Negative) Urine Nitrite (Negative) Urine Bilirubin (Negative) Urine Urobilinogen (Normal) mg/dL Ur Leukocyte Esterase (Negative) Ur Culture Indicated? (NO) 09/22/17 09/22/17 09/22/17 Range/Units 11:04 11:04 11:19 WBC (4.3-11.1) K/mcL RBC (4.19-5.50) M/mcL Hgb (12.9-16.9) g/dL Hct (37.5-50.1) % MCV (83.0-100.0) fL MCH (28.0-33.3) pg MCHC (31.6-35.5) g/dL RDW (11.5-14.5) % Plt Count (140-400) K/mcL MPV (9.4-12.4) fL Immature Gran % (0-4) % Seg Neutrophils % % Lymphocytes % % Monocytes % % Eosinophils % % Basophils % % Neutrophils # (1.6-8.9) K/mcL Lymphocytes # (0.6-4.6) K/mcL Monocytes # (0.0-1.3) K/mcL Eosinophils # (0.0-0.6) K/mcL Basophils # (0.0-0.2) K/mcL VBG pH 7.44 H (7.32-7.42) pH Units VBG pCO2 33 L (41-51) mmHg VBG pO2 117 H (25-50) mmHg VBG HCO3 22 (21-27) mEq/L Sodium (136-145) mEq/L Potassium (3.5-4.5) mEq/L Chloride (98-109) mEq/L Carbon Dioxide (19-29) mEq/L BUN (8-26) mg/dL Creatinine (0.72-1.25) mg/dL Est GFR ( Amer) (> 60) Est GFR (Non-Af Amer) (> 60) BUN/Creatinine Ratio (6-26) Glucose (70-99) mg/dL Calculated Osmolality (280-300) Lactic Acid (0.5-2.2) mmol/L Calcium (8.6-10.8) mg/dL Total Bilirubin (0.2-1.2) mg/dL Direct Bilirubin (0.0-0.5) mg/dL Indirect Bilirubin (0.0-1.2) mg/dL AST (5-34) Units/L ALT (0-55) Units/L Alkaline Phosphatase (38-126) Units/L Troponin I 0.00 (0-0.03) ng/mL B-Natriuretic Peptide < 10 (0-100) pg/mL Serum Total Protein (6.0-8.3) g/dL Albumin (3.5-5.0) g/dL Globulin (2.4-3.5) g/dL Albumin/Globulin Ratio (1.1-2.2) Lipase (8-78) Units/L Urine Color (Yellow) Urine Clarity (Clear) Urine pH (5.0-8.0) pH Units Ur Specific [place] (1.010-1.025) Urine Protein (Neg-Trace) mg/dL Urine Glucose (UA) (Normal) mg/dL Urine Ketones (Negative) mg/dL Urine Blood (Negative) Urine Nitrite (Negative) Urine Bilirubin (Negative) Urine Urobilinogen (Normal) mg/dL Ur Leukocyte Esterase (Negative) Ur Culture Indicated? (NO) 09/22/17 09/22/17 Range/Units 12:38 13:25 WBC (4.3-11.1) K/mcL RBC (4.19-5.50) M/mcL Hgb (12.9-16.9) g/dL Hct (37.5-50.1) % MCV (83.0-100.0) fL MCH (28.0-33.3) pg MCHC (31.6-35.5) g/dL RDW (11.5-14.5) % Plt Count (140-400) K/mcL MPV (9.4-12.4) fL Immature Gran % (0-4) % Seg Neutrophils % % Lymphocytes % % Monocytes % % Eosinophils % % Basophils % % Neutrophils # (1.6-8.9) K/mcL Lymphocytes # (0.6-4.6) K/mcL Monocytes # (0.0-1.3) K/mcL Eosinophils # (0.0-0.6) K/mcL Basophils # (0.0-0.2) K/mcL VBG pH (7.32-7.42) pH Units VBG pCO2 (41-51) mmHg VBG pO2 (25-50) mmHg VBG HCO3 (21-27) mEq/L Sodium (136-145) mEq/L Potassium (3.5-4.5) mEq/L Chloride (98-109) mEq/L Carbon Dioxide (19-29) mEq/L BUN (8-26) mg/dL Creatinine (0.72-1.25) mg/dL Est GFR ( Amer) (> 60) Est GFR (Non-Af Amer) (> 60) BUN/Creatinine Ratio (6-26) Glucose (70-99) mg/dL Calculated Osmolality (280-300) Lactic Acid 4.2 H* (0.5-2.2) mmol/L Calcium (8.6-10.8) mg/dL Total Bilirubin (0.2-1.2) mg/dL Direct Bilirubin (0.0-0.5) mg/dL Indirect Bilirubin (0.0-1.2) mg/dL AST (5-34) Units/L ALT (0-55) Units/L Alkaline Phosphatase (38-126) Units/L Troponin I (0-0.03) ng/mL B-Natriuretic Peptide (0-100) pg/mL Serum Total Protein (6.0-8.3) g/dL Albumin (3.5-5.0) g/dL Globulin (2.4-3.5) g/dL Albumin/Globulin Ratio (1.1-2.2) Lipase (8-78) Units/L Urine Color Yellow (Yellow) Urine Clarity Clear (Clear) Urine pH 6.0 (5.0-8.0) pH Units Ur Specific [place] 1.017 (1.010-1.025) Urine Protein Negative (Neg-Trace) mg/dL Urine Glucose (UA) Normal (Normal) mg/dL Urine Ketones Negative (Negative) mg/dL Urine Blood Negative (Negative) Urine Nitrite Negative (Negative) Urine Bilirubin Negative (Negative) Urine Urobilinogen Normal (Normal) mg/dL Ur Leukocyte Esterase Negative (Negative) Ur Culture Indicated? NO (NO) - Radiology Data Radiology results reviewed: Yes I reviewed the patient's radiology results. Chest X-Ray 09/22/17 10:59 IMPRESSION: 1. Minimal interstitial edema without overt failure. 2. Left base atelectasis. 3. COPD. D/ / 09/22/2017 11:36:21 Sherrell Vazquez MD / andrés Interpreting Provider: Sherrell Vazquez MD Chest CT 09/22/17 12:11 IMPRESSION: No acute cardiopulmonary abnormality. Previously seen right lateral basal segment nodular opacities have resolved with residual scarring. [id number] emphysema with smoking-related airway inflammation. Hepatic steatosis. Asymmetric left gynecomastia. Correlate with physical exam and consider referral for mammographic evaluation given asymmetry. D/ / 09/22/2017 13:30:12 iTo Sin / celena Interpreting Provider: Tio Sin Abdomen/Pelvis CT 09/22/17 13:56 IMPRESSION: Umbilical hernia, new since the previous exam. This contains a loop of small bowel which is mildly inflamed. Small bowel just proximal to this region is mildly dilated measuring up to 3.5 cm and findings are concerning for obstruction. Inflammatory change previously visualized about the umbilicus has improved. Previously visualized opacities in the lung bases have improved especially in the right lower lobe. D/ / Aurora Moraes MD / Aurora Moraes MD Interpreting Provider: Aurora Moraes MD - EKG Data EKG attestation: Yes I reviewed and interpreted this EKG. EKG results narrative: EKG taken 09/22/2017 at 1051 hrs. shows sinus rhythm at a rate of 96 beats a minute with no acute ST elevations or depressions in any leads. No S1 Q3T3. No Brugada, no WPW. No signs of right heart strain. His EKG for comparison also shows a sinus rhythm. Same morphology as today's EKG. Taken 07/05/2017. Heart Score - Score History: Slightly Suspicious EKG: Normal Age: 45-65 Risk Factors: Equal/Greater than 3 risk factor or history of atherosclerotic disease
[2017-09-22 11:15] LABS: Basophils # 0.1 K/mcL (0.0-0.2); Basophils % 0.6 %; Eosinophils # 0.2 K/mcL (0.0-0.6); Eosinophils % 1.1 %; Hematocrit 36.2 % (37.5-50.1); Hemoglobin 11.4 g/dL (12.9-16.9); Immature Granulocytes % 1.1 % (0-4); Lymphocytes # 1.4 K/mcL (0.6-4.6); Lymphocytes % 8.9 %; Mean Corpuscular HGB Conc 31.5 g/dL (31.6-35.5); Mean Corpuscular Hemoglobin 25.9 pg (28.0-33.3); Mean Corpuscular Volume 82.3 fL (83.0-100.0); Mean Platelet Volume 8.6 fL (9.4-12.4); Monocytes # 0.9 K/mcL (0.0-1.3); Monocytes % 5.4 %; Neutrophils # 13.3 K/mcL (1.6-8.9); Platelet Count 378 K/mcL (140-400); Red Cell Distribution Width 16.4 % (11.5-14.5); Segmented Neutrophils % 82.9 %
[2017-09-22 11:22] LABS: VBG HCO3 22 mEq/L (21-27); VBG PCO2 33 mmHg (41-51); VBG PH 7.44 pH Units (7.32-7.42); VBG PO2 117 mmHg (25-50)
[2017-09-22 11:25] LABS: BUN/Creatinine Ratio 15 (6-26); Blood Urea Nitrogen 14 mg/dL (8-26); Calcium 9.3 mg/dL (8.6-10.8); Carbon Dioxide 22 mEq/L (19-29); Chloride 105 mEq/L (98-109); Glucose 132 mg/dL (70-99); Osmolality,Calculated 288 (280-300); Sodium 138 mEq/L (136-145); eGFR For African Americans > 60 (> 60); eGFR For Non-African Americans > 60 (> 60)
[2017-09-22] MEDS ORDERED: 0.9 % Sodium Chloride 1,000 ML IVC ONE ×4 (12:11→14:13)
--- NOTE | 2017-09-22 12:31 | Emergency Department Note ---
START Narrative - START START: I examined this patient and my medical decision-making was reviewed with the Resident Physician. I agree with the documented findings, disposition and treatment plan as described except to the extent set forth below. 62-year-old male presents with cough and shortness of breath and sputum production. Slightly tachycardic. Patient is given aerosols. His labs show white count as well as a slightly elevated lactate. We will do a CT of the chest to look for any infiltrates versus fluid as his chest x-ray showed what could be infectious process versus fluid. Patient will need to be admitted. No critical care time.
[2017-09-22 13:40] LABS: Bilirubin,Urine Negative (Negative); Blood,Urine Negative (Negative); Clarity,Urine Clear (Clear); Color,Urine Yellow (Yellow); Glucose,Urine (UA) Normal (Normal); Ketones,Urine Negative (Negative); Leukocyte Esterase,Urine Negative (Negative); Nitrite,Urine Negative (Negative); Protein,Urine Negative (Neg-Trace); Specific Gravity,Urine 1.017 (1.010-1.025); Urobilinogen,Urine Normal (Normal)
[2017-09-22] MEDS ORDERED: *HR* FentaNYL (PF) 100 MCG/2 ML VIAL IVP ONE (14:03)
[2017-09-22] MEDS ORDERED: Ondansetron 4 MG/2 ML VIAL IVP PRN (14:03)
[2017-09-22 14:18] LABS: Alanine Aminotransferase 19 Units/L (0-55); Albumin 3.2 g/dL (3.5-5.0); Albumin/Globulin Ratio 0.7 (1.1-2.2); Alkaline Phosphatase 98 Units/L (38-126); Aspartate Amino Transferase 16 Units/L (5-34); Bilirubin,Direct 0.1 mg/dL (0.0-0.5); Bilirubin,Indirect 0.2 mg/dL (0.0-1.2); Bilirubin,Total 0.3 mg/dL (0.2-1.2); Globulin 4.8 g/dL (2.4-3.5); Lipase 25 Units/L (8-78)
[2017-09-22] MEDS ORDERED: Levofloxacin 750 MG/150 ML 750 MG/150 ML BAG IVPB ONE (16:15)
[2017-09-22] MEDS ORDERED: Naloxone 0.4 MG/ML INJ IVP PRN (21:09)
[2017-09-22] MEDS ORDERED: Ipratropium/Albuterol Neb 3 ML IH PRN (21:11)
--- NOTE | 2017-09-22 21:14 | Internal Med History&Physical ---
Date of Encounter: 09/22/17 Time of Encounter: 21:14 Assessment and Plan (1) Acute bronchitis Current visit: Yes Status: Acute steroids IV, IV antiobiotics, Duonebs Send RVP Qualifiers: Bronchitis organism: other organism Qualified Code(s): J20.8 - Acute bronchitis due to other specified organisms (2) Abdominal hernia Current visit: Yes Status: Acute CT suggest SBO ? but clinically, he appears well. ED consulted Dr Sorensen who just saw patient while i had inadvertently spoke with Dr Yao who had seen patient in the chart from prior. Both surgeon knows patient well. Clinically, less concerning for obstruction. Will trial full liquids for now and serial belly exam. Imaging findings likely chronic Qualifiers: Hernia type: unspecified Recurrence: non-recurrent Qualified Code(s): K46.9 - Unspecified abdominal hernia without obstruction or gangrene (3) Lactic acidemia Current visit: Yes Status: Acute hydrate and watch for now doubt incarcerated bowel due to lack of clinical symptoms. Will follow closely on full liquids (4) Hypertension Current visit: No Status: Acute Qualifiers: Hypertension type: essential hypertension Qualified Code(s): I10 - Essential (primary) hypertension Internal Medicine - H&P: HPI Chief complaint: trouble breathing, pleuritic CP Admitted From: Home History of present illness: Mr. Herring is a 62 year old male with hx of COPD who presents with respiratory complaints and pleuritic quality pain on inspiration since tuesday. Admitted for likely acute bronchitis As baseline, he uses 2 L NC on exertion, nocturnal Bipap. He started to experience URI type, respiratory symptoms since tuesday and was seen by home health RN. On tuesday, his symptoms improved but on tuesday,it worsened again. Associated with a pleuritic quality type pain. Symptoms did not improve over the last 24-48 hours leading to admission On review, he has subacute/chronic nicolasa-umbilical pain since last december 2015 after hernia surgery. EKG rate 96, NSR CT/CT chest wo con IMPRESSION: No acute cardiopulmonary abnormality. Previously seen right lateral basal segment nodular opacities have resolved with residual scarring. [id number] emphysema with smoking-related airway inflammation. Hepatic steatosis. Asymmetric left gynecomastia. Correlate with physical exam and consider referral for mammographic evaluation given asymmetry. CT/CT abd pelvis w iv no oral IMPRESSION: Umbilical hernia, new since the previous exam. This contains a loop of small bowel which is mildly inflamed. Small bowel just proximal to this region is mildly dilated measuring up to 3.5 cm and findings are concerning for obstruction. Inflammatory change previously visualized about the umbilicus has improved. Previously visualized opacities in the lung bases have improved especially in the right lower lobe. XR/XR chest 2V IMPRESSION: 1. Minimal interstitial edema without overt failure. 2. Left base atelectasis. 3. COPD. Past Med Surg Social Fam HX - Past Medical History Medical history: cardiomyopathy, COPD, diabetes, GERD, hypertension, other Psychiatric history: anxiety, depression - Past Surgical History Surgical History: cataract, herniorrhaphy, other - Social History Smoking Status: Former smoker Smokeless Tobacco Status: No Alcohol use: rarely Drug use: none - Family History Father Family Member Ethnicity: Non- Living Status: Age at : 76 Cause of : pancreatic cancer Hx Family Cardiac Disorders: No Hx Family Respiratory Disorders: No Hx Family Cancer: Yes Hx Family GI Disorders: No Hx Family Endocrine Disorder: Yes Hx Family Neuromuscular Disorders: No Hx Family Neurologic Disorders: No Hx Family HEENT Disorders: No Hx Family Autoimmune Disorders: No Mother Adopted: No Family Member Ethnicity: Non- Living Status: Age at : 60 Cause of : [place]/ cancer Hx Family Cardiac Disorders: Yes Hx Family Respiratory Disorders: Yes Hx Family Cancer: Yes Hx Family GI Disorders: No Hx Family Endocrine Disorder: No Hx Family Neuromuscular Disorders: No Hx Family Neurologic Disorders: No Hx Family HEENT Disorders: No Hx Family Autoimmune Disorders: No Sister Living Status: Still Living Hx Family Cardiac Disorders: Yes Hx Family Respiratory Disorders: Yes Hx Family Cancer: No Hx Family GI Disorders: No Hx Family Endocrine Disorder: No Hx Family Neuromuscular Disorders: No Hx Family Neurologic Disorders: No Hx Family HEENT Disorders: No Hx Family Autoimmune Disorders: No Internal Medicine - H&P: Meds Albuterol Sulfate [Albuterol Inhaler] 2 puff IH Q4HR PRN 03/16/16 [History] Azelastine 0.1% Nasal [place] [Astelin] 1 spray NS BID 03/16/16 [History] Budesonide/Formoterol 160/4.5 [Symbicort 160/4.5] 2 puff IH BIDR 03/16/16 [ History] Ergocalciferol (VITAMIN D2) [Vitamin D] 400 unit PO DAILY 03/16/16 [History] Esomeprazole Magnesium [Nexium] 40 mg PO BID 03/16/16 [History] Fluticasone Propionate Nasal [Flonase] 2 spray NS DAILY 03/16/16 [History] Ketoconazole Shampoo [Nizoral Shampoo] 1 appl TP 3XW 03/16/16 [History] Psyllium Seed (with Sugar) [Metamucil Powder] 1 each PO HS 03/16/16 [History] Roflumilast [Daliresp] 500 mcg PO DAILY 03/16/16 [History] Sodium Chloride [[place] Saline] 1 spray NS BID PRN 03/16/16 [History] Metoclopramide [Reglan] 10 mg PO BID PRN 11/03/16 [History] Umeclidinium [place] [Incruse Ellipta] 1 puff IH DAILY 11/03/16 [History] Oxygen 3 l .ROUTE AD 11/20/16 [History] Losartan [Cozaar] 25 mg PO DAILY #30 tablet 12/10/16 [Rx] Cetirizine HCl [Zyrtec] 10 mg PO DAILY PRN #0 01/27/17 [Rx] Magnesium Oxide [Mag-Ox] 400 mg PO DAILY #15 tablet 01/27/17 [Rx] Potassium Chloride 20 meq PO DAILY #15 tab.er.prt 01/27/17 [Rx] Metoprolol [Lopressor] 25 mg PO BID 07/05/17 [History] predniSONE [PredniSONE] 5 mg PO DAILY 07/05/17 [History] OxyCODONE/APAP 10/325 [Percocet 10/325 MG] 1 each PO Q8H PRN #14 tablet [Rx] Acetaminophen [Tylenol] 1,000 mg PO BID PRN 09/22/17 [History] Aspirin 81 mg PO DAILY 09/22/17 [History] Clotrimazole 1% CRM [Lotrimin 1%] 1 appl TP BID 09/22/17 [History] Docusate Sodium [Dok] 300 mg PO QAM 09/22/17 [History] Docusate Sodium [Dok] 600 mg PO QPM 09/22/17 [History] Guaifenesin [Mucinex] 400 mg PO Q12H PRN 09/22/17 [History] Ipratropium/Albuterol Neb [Duoneb] 3 ml IH Q4H PRN 09/22/17 [History] Mv-Mn/FA/Vit K/Lycop/Lut/Coq10 [Daily Multivitamin Capsule] 1 tab PO DAILY 09/22 [History] Ondansetron HCl [Zofran] 4 mg PO Q4H PRN 09/22/17 [History] clonazePAM [Klonopin] 0.5 mg PO TID PRN 09/22/17 [History] 3 Allergy/AdvReac Type Severity Reaction Status Date / Time morphine Allergy Difficulty Verified 09/22/17 16:19 Breathing sulfamethoxazole Allergy Hives Verified 09/22/17 16:19 [From Bactrim] trimethoprim [From Bactrim] Allergy Hives Verified 09/22/17 16:19 codeine AdvReac Nausea Verified 09/22/17 16:19 All Systems PM: A 10-system review of systems was performed and is negative for pertinent findings except as documented above in the HPI. Review of systems: ROS 14 point review of systems reviewed as best as possible given presentation. Pertinent positive or negative as per HPI or otherwise reviewed as negative - Constitutional Vitals: Temp Pulse Resp BP Pulse Ox 98.6 F 116 21 157/88 95 09/22/17 18:51 09/22/17 18:51 09/22/17 18:51 09/22/17 18:51 09/22/17 18:51 Exam: General - AAO x 3 Psych - Appropriate affect/speech. No agitation Eyes - JUDITH. Eye lids intact. No scleral icterus Heart - Sinus. RRR. S1 and S2 present. No added HS/murmurs appreciated. No elevated JVD appreciated. Lung - Adequate air entry b/l, No crackles/wheezes appreciated GI - Soft, no guarding or rigidity. No hepatosplenomegaly/ascites. BS+ - No CVA/suprapubic tenderness or palpable bladder distension Skin - Intact. No rash/petechiae/ecchymosis. Warm extremities Internal Med - H&P Results - Labs CBC & Chem 7: 09/22/17 11:04 09/22/17 11:04
[2017-09-22] MEDS ORDERED: Ondansetron ODT 4 MG TAB.RAPDIS PO PRN (21:17)
[2017-09-22] MEDS ORDERED: Azithromycin 500 MG in D5% in Water 250 ML IVPB SCH (22:00)
[2017-09-22] MEDS: Budesonide/Formoterol 160/4.5 MDI IH SCH (22:38)
[2017-09-22] MEDS: clonazePAM 0.5 MG TABLET PO PRN (22:43)
[2017-09-22] MEDS: Ringers Solution, Lactated 1,000 ML IVC SCH (22:43)
[2017-09-22] MEDS: Psyllium 1 PACKET POWD.PACK PO SCH (22:44)
[2017-09-23] MEDS: Ipratropium/Albuterol Neb 3 ML IH SCH ×4 (05:25→21:43)
[2017-09-23] MEDS: *HR* Enoxaparin 40 MG/0.4 ML SYRINGE SQ SCH (05:50)
[2017-09-23 06:57] LABS: BUN/Creatinine Ratio 18 (6-26); Blood Urea Nitrogen 16 mg/dL (8-26); Calcium 9.1 mg/dL (8.6-10.8); Carbon Dioxide 21 mEq/L (19-29); Chloride 107 mEq/L (98-109); Glucose 126 mg/dL (70-99); Osmolality,Calculated 291 (280-300); Potassium 4.2 mEq/L (3.5-4.5); Sodium 139 mEq/L (136-145); eGFR For African Americans > 60 (> 60); eGFR For Non-African Americans > 60 (> 60)
[2017-09-23 07:00] LABS: Basophils # 0.1 K/mcL (0.0-0.2); Basophils % 0.3 %; Eosinophils % 0.2 %; Hematocrit 31.8 % (37.5-50.1); Hemoglobin 9.9 g/dL (12.9-16.9); Immature Granulocytes % 1.1 % (0-4); Lymphocytes # 1.9 K/mcL (0.6-4.6); Lymphocytes % 10.1 %; Mean Corpuscular HGB Conc 31.1 g/dL (31.6-35.5); Mean Corpuscular Hemoglobin 26.1 pg (28.0-33.3); Mean Corpuscular Volume 83.9 fL (83.0-100.0); Mean Platelet Volume 9.3 fL (9.4-12.4); Monocytes # 1.2 K/mcL (0.0-1.3); Monocytes % 6.4 %; Platelet Count 364 K/mcL (140-400); Red Blood Count 3.79 M/mcL (4.19-5.50); Red Cell Distribution Width 16.8 % (11.5-14.5); Segmented Neutrophils % 81.9 %
[2017-09-23] MEDS: Aspirin 81 MG TAB.CHEW PO SCH (08:31)
[2017-09-23] MEDS: MethylPREDNISolone 40 MG/ML VIAL IVP SCH ×2 (08:32→20:26)
[2017-09-23] MEDS: (Umeclidinium Bromide [Incruse Ellipta] 1 PUFF) IH SCH (08:32)
[2017-09-23] MEDS: (Roflumilast [Daliresp] 500 MCG) PO SCH (08:32)
--- NOTE | 2017-09-23 08:50 | General Surgery Consult Note ---
<Pasha Cage - Last Filed: 09/23/17 13:04> Date of Encounter: 09/23/17 Time of Encounter: 06:35 Assessment and Plan (1) Abdominal hernia Current Visit: Yes Status: Acute - Umbilical hernia as demonstrated on CT scan was concern for small bowel obstruction - Patient reports no abdominal pain at this time outside his normal - He states he does have a significant past surgical history involving abdomen with previous hernias - Lactic acidosis of 3.3 on admission, peaked at 4.2. Most recently 1.8 this morning - Unlikely etiology is small bowel obstruction given patient is passing gas and bowel movement this morning, containing no evidence of blood - Small bowel follow through performed this afternoon showing normal bowel transit through herniated bowel. - Can address the umbilical hernia as an outpatient - Clear liquid diet. Advance as tolerated. - Will sign off at this time. Reconsult as needed. Qualifiers: Hernia type: unspecified Obstruction and gangrene presence: without obstruction or gangrene Recurrence: non-recurrent Qualified Code(s): K46.9 - Unspecified abdominal hernia without obstruction or gangrene (2) Lactic acidosis Current Visit: Yes Status: Acute As above for abdominal hernia Most secondary to infection, has down trended. Management and monitoring per primary team History of Present Illness Consult date: 09/22/17 Reason for consult: hernia Requesting physician: Gareth Nair History of present illness: 62-year-old gentleman with past medical history of COPD, diabetes, reflux, hypertension admitted for likely acute bronchitis. GI was consulted for possible incarcerated umbilical hernia. CT scan emergency department showed umbilical hernia, new since previous exam with loop of small bowel which is mildly inflamed and proximal mild dilation. Patient states he is experiencing no abdominal pain outside his usual which he describes as mild and dull in nature as if he has gas. She denies any symptoms of nausea, vomiting, hematochezia or melena. He states his bowel movement early this morning after being admitted which was normal in nature without any evidence of diarrhea, constipation, blood. He states he has had the symptoms for the past month and a half but has not been assessed yet. Vital signs have been stable, lactic acid was elevated upon admission at 3.3, 4.2, most recently 1.8 this morning. He does have elevated white blood cell count at 18.3 this morning, however other infectious etiologies are more likely. Past Med Surg Social Fam HX - Past Medical History Medical history: cardiomyopathy, COPD, diabetes, GERD, hypertension, other Psychiatric history: anxiety, depression - Past Surgical History Surgical History: cataract, herniorrhaphy, other - Social History Smoking Status: Former smoker Smokeless Tobacco Status: No Alcohol use: rarely Drug use: none - Family History Father Family Member Ethnicity: Non- Living Status: Age at : 76 Cause of : pancreatic cancer Hx Family Cardiac Disorders: No Hx Family Respiratory Disorders: No Hx Family Cancer: Yes Hx Family GI Disorders: No Hx Family Endocrine Disorder: Yes Hx Family Neuromuscular Disorders: No Hx Family Neurologic Disorders: No Hx Family HEENT Disorders: No Hx Family Autoimmune Disorders: No Mother Adopted: No Family Member Ethnicity: Non- Living Status: Age at : 60 Cause of : [place]/ cancer Hx Family Cardiac Disorders: Yes Hx Family Respiratory Disorders: Yes Hx Family Cancer: Yes Hx Family GI Disorders: No Hx Family Endocrine Disorder: No Hx Family Neuromuscular Disorders: No Hx Family Neurologic Disorders: No Hx Family HEENT Disorders: No Hx Family Autoimmune Disorders: No Sister Living Status: Still Living Hx Family Cardiac Disorders: Yes Hx Family Respiratory Disorders: Yes Hx Family Cancer: No Hx Family GI Disorders: No Hx Family Endocrine Disorder: No Hx Family Neuromuscular Disorders: No Hx Family Neurologic Disorders: No Hx Family HEENT Disorders: No Hx Family Autoimmune Disorders: No Medications and Allergies Albuterol Sulfate [Albuterol Inhaler] 2 puff IH Q4HR PRN 03/16/16 [History] Azelastine 0.1% Nasal [place] [Astelin] 1 spray NS BID 03/16/16 [History] Budesonide/Formoterol 160/4.5 [Symbicort 160/4.5] 2 puff IH BIDR 03/16/16 [ History] Ergocalciferol (VITAMIN D2) [Vitamin D] 400 unit PO DAILY 03/16/16 [History] Esomeprazole Magnesium [Nexium] 40 mg PO BID 03/16/16 [History] Fluticasone Propionate Nasal [Flonase] 2 spray NS DAILY 03/16/16 [History] Ketoconazole Shampoo [Nizoral Shampoo] 1 appl TP 3XW 03/16/16 [History] Psyllium Seed (with Sugar) [Metamucil Powder] 1 each PO HS 03/16/16 [History] Roflumilast [Daliresp] 500 mcg PO DAILY 03/16/16 [History] Sodium Chloride [[place] Saline] 1 spray NS BID PRN 03/16/16 [History] Metoclopramide [Reglan] 10 mg PO BID PRN 11/03/16 [History] Umeclidinium [place] [Incruse Ellipta] 1 puff IH DAILY 11/03/16 [History] Oxygen 3 l .ROUTE AD 11/20/16 [History] Losartan [Cozaar] 25 mg PO DAILY #30 tablet 12/10/16 [Rx] Cetirizine HCl [Zyrtec] 10 mg PO DAILY PRN #0 01/27/17 [Rx] Magnesium Oxide [Mag-Ox] 400 mg PO DAILY #15 tablet 01/27/17 [Rx] Potassium Chloride 20 meq PO DAILY #15 tab.er.prt 01/27/17 [Rx] Metoprolol [Lopressor] 25 mg PO BID 07/05/17 [History] predniSONE [PredniSONE] 5 mg PO DAILY 07/05/17 [History] OxyCODONE/APAP 10/325 [Percocet 10/325 MG] 1 each PO Q8H PRN #14 tablet [Rx] Acetaminophen [Tylenol] 1,000 mg PO BID PRN 09/22/17 [History] Aspirin 81 mg PO DAILY 09/22/17 [History] Clotrimazole 1% CRM [Lotrimin 1%] 1 appl TP BID 09/22/17 [History] Docusate Sodium [Dok] 300 mg PO QAM 09/22/17 [History] Docusate Sodium [Dok] 600 mg PO QPM 09/22/17 [History] Guaifenesin [Mucinex] 400 mg PO Q12H PRN 09/22/17 [History] Ipratropium/Albuterol Neb [Duoneb] 3 ml IH Q4H PRN 09/22/17 [History] Mv-Mn/FA/Vit K/Lycop/Lut/Coq10 [Daily Multivitamin Capsule] 1 tab PO DAILY 09/22 [History] Ondansetron HCl [Zofran] 4 mg PO Q4H PRN 09/22/17 [History] clonazePAM [Klonopin] 0.5 mg PO TID PRN 09/22/17 [History] 3 Allergy/AdvReac Type Severity Reaction Status Date / Time morphine Allergy Difficulty Verified 09/22/17 16:19 Breathing sulfamethoxazole Allergy Hives Verified 09/22/17 16:19 [From Bactrim] trimethoprim [From Bactrim] Allergy Hives Verified 09/22/17 16:19 codeine AdvReac Nausea Verified 09/22/17 16:19 Review of Systems All systems PM: A 10-system review of systems was performed and is negative for pertinent findings except as documented above in the HPI. - Constitutional no chills, no fever(s), no lethargy - Gastrointestinal abdominal pain, no change in bowel habits, no change in stool character, no coffee ground emesis, no constipation, no diarrhea, no hematemesis, no hematochezia, no melena, no nausea, no vomiting General Surgery Exam Initial Vital Signs Temp Pulse Resp BP Pulse Ox 98 F 99 18 136/76 98 09/22/17 10:32 09/22/17 10:32 09/22/17 10:32 09/22/17 10:32 09/22/17 10:32 - General physical appearance well developed, well nourished, no distress, obese - Respiratory normal expansion, normal respiratory effort, clear to auscultation - Cardiovascular Cardiovascular exam: Present: RRR, no murmurs/rubs/gallops - Abdomen Abdomen general surgery: Present: bowel sounds present, soft, non tender Hernia: Present: umbilical Exam Initial Vital Signs Temp Pulse Resp BP Pulse Ox 98 F 99 18 136/76 98 09/22/17 10:32 09/22/17 10:32 09/22/17 10:32 09/22/17 10:32 09/22/17 10:32 Results - Labs 09/23/17 03:55 09/23/17 06:35 Abnormal lab results WBC 18.3 K/mcL (4.3-11.1) H 09/23/17 03:55 RBC 3.79 M/mcL (4.19-5.50) L 09/23/17 03:55 Hgb 9.9 g/dL (12.9-16.9) L D 09/23/17 03:55 Hct 31.8 % (37.5-50.1) L 09/23/17 03:55 MCH 26.1 pg (28.0-33.3) L 09/23/17 03:55 MCHC 31.1 g/dL (31.6-35.5) L 09/23/17 03:55 RDW 16.8 % (11.5-14.5) H 09/23/17 03:55 MPV 9.3 fL (9.4-12.4) L 09/23/17 03:55 Neutrophils # 15.0 K/mcL (1.6-8.9) H 09/23/17 03:55 VBG pH 7.44 pH Units (7.32-7.42) H 09/22/17 11:19 VBG pCO2 33 mmHg (41-51) L 09/22/17 11:19 VBG pO2 117 mmHg (25-50) H 09/22/17 11:19 Glucose 126 mg/dL (70-99) H 09/23/17 06:35 Albumin 3.2 g/dL (3.5-5.0) L 09/22/17 11:04 Globulin 4.8 g/dL (2.4-3.5) H 09/22/17 11:04 Albumin/Globulin Ratio 0.7 (1.1-2.2) L 09/22/17 11:04 Diabetes panel 09/23/17 Range/Units 06:35 Sodium 139 (136-145) mEq/L Potassium 4.2 (3.5-4.5) mEq/L Chloride 107 (98-109) mEq/L Carbon Dioxide 21 (19-29) mEq/L BUN 16 (8-26) mg/dL Creatinine 0.88 (0.72-1.25) mg/dL Glucose 126 H (70-99) mg/dL Calcium 9.1 (8.6-10.8) mg/dL Calcium panel 09/23/17 Range/Units 06:35 Calcium 9.1 (8.6-10.8) mg/dL Pituitary panel 09/23/17 Range/Units 06:35 Sodium 139 (136-145) mEq/L Potassium 4.2 (3.5-4.5) mEq/L Chloride 107 (98-109) mEq/L Carbon Dioxide 21 (19-29) mEq/L BUN 16 (8-26) mg/dL Creatinine 0.88 (0.72-1.25) mg/dL Glucose 126 H (70-99) mg/dL Calcium 9.1 (8.6-10.8) mg/dL Adrenal panel 09/23/17 Range/Units 06:35 Sodium 139 (136-145) mEq/L Potassium 4.2 (3.5-4.5) mEq/L Chloride 107 (98-109) mEq/L Carbon Dioxide 21 (19-29) mEq/L BUN 16 (8-26) mg/dL Creatinine 0.88 (0.72-1.25) mg/dL Glucose 126 H (70-99) mg/dL Calcium 9.1 (8.6-10.8) mg/dL All other labs normal. Consult Discharge Plan - Plan Referrals: Jesus Machuca DO [Primary Care Provider] - <Jose Antonio Jones - Last Filed: 09/26/17 08:32> Date of Encounter: 09/23/17 Review of Systems All systems PM: A 10-system review of systems was performed and is negative for pertinent findings except as documented above in the HPI. General Surgery Exam Initial Vital Signs Temp Pulse Resp BP Pulse Ox 98 F 99 18 136/76 98 09/22/17 10:32 09/22/17 10:32 09/22/17 10:32 09/22/17 10:32 09/22/17 10:32 Exam Initial Vital Signs Temp Pulse Resp BP Pulse Ox 98 F 99 18 136/76 98 09/22/17 10:32 09/22/17 10:32 09/22/17 10:32 09/22/17 10:32 09/22/17 10:32 Results - Labs 09/26/17 05:47 09/25/17 03:24 Abnormal lab results WBC 11.8 K/mcL (4.3-11.1) H 09/26/17 05:47 RBC 3.79 M/mcL (4.19-5.50) L 09/26/17 05:47 Hgb 9.8 g/dL (12.9-16.9) L 09/26/17 05:47 Hct 31.4 % (37.5-50.1) L 09/26/17 05:47 MCV 82.8 fL (83.0-100.0) L 09/26/17 05:47 MCH 25.9 pg (28.0-33.3) L 09/26/17 05:47 MCHC 31.2 g/dL (31.6-35.5) L 09/26/17 05:47 RDW 16.5 % (11.5-14.5) H 09/26/17 05:47 MPV 9.1 fL (9.4-12.4) L 09/26/17 05:47 VBG pH 7.44 pH Units (7.32-7.42) H 09/22/17 11:19 VBG pCO2 33 mmHg (41-51) L 09/22/17 11:19 VBG pO2 117 mmHg (25-50) H 09/22/17 11:19 Glucose 150 mg/dL (70-99) H 09/25/17 03:24 POC Glucose 174 (58-89) H 09/22/17 18:47 Albumin 3.2 g/dL (3.5-5.0) L 09/22/17 11:04 Globulin 4.8 g/dL (2.4-3.5) H 09/22/17 11:04 Albumin/Globulin Ratio 0.7 (1.1-2.2) L 09/22/17 11:04 All other labs normal. - Attending Attestation I examined this patient and my medical decision-making was reviewed with the Resident Physician. I agree with the documented findings, disposition and treatment plan as described except to the extent set forth below. The patient was seen and evaluated with arrest in the morning rounds. We are consult to rule out bowel obstruction. He is passing flatus and having bowel movements. He does have crampy abdominal pain. We will plan on small bowel follow-through evaluation of the bowel. If the contrast moves through promptly no further surgical intervention will be required. Jose Antonio Jones MD FACS
[2017-09-23] MEDS: Budesonide/Formoterol 160/4.5 MDI IH SCH ×2 (10:34→21:43)
--- NOTE | 2017-09-23 11:41 | Internal Med Progress Note ---
Date of Encounter: 09/23/17 Time of Encounter: 11:41 - Assessment and plan (1) Odynophagia Current Visit: Yes Status: Acute Assessment and plan: GI consulted For possible review on Tuesday if patient is still in-patient. (2) HTN (hypertension) Current Visit: Yes Status: Chronic Assessment and plan: Controlled. Continue current medications. Qualifiers: Hypertension type: essential hypertension Qualified Code(s): I10 - Essential (primary) hypertension (3) COPD (chronic obstructive pulmonary disease) Current Visit: Yes Status: Chronic Assessment and plan: See acute bronchitis. Qualifiers: COPD type: unspecified COPD Qualified Code(s): J44.9 - Chronic obstructive pulmonary disease, unspecified (4) Anxiety Current Visit: Yes Status: Chronic Assessment and plan: Continue home medications. (5) Obstructive sleep apnea Current Visit: Yes Status: Chronic Assessment and plan: CPAP at bedtime. (6) GERD (gastroesophageal reflux disease) Current Visit: Yes Status: Chronic Assessment and plan: Continue home PPI. Qualifiers: Esophagitis presence: esophagitis presence not specified Qualified Code(s) : K21.9 - Gastro-esophageal reflux disease without esophagitis (7) Anemia Current Visit: Yes Status: Chronic Assessment and plan: Hemoglobin is stable and at baseline. Qualifiers: Anemia type: iron deficiency Iron deficiency anemia type: chronic blood loss Qualified Code(s): D50.0 - Iron deficiency anemia secondary to blood loss (chronic) (8) Lactic acidosis Current Visit: Yes Status: Acute Assessment and plan: Preventative lactate 4.8, now improved. Possibly due to fat necrosis. No evidence for small bowel obstruction on small bowel follow through Surgery has signed off. Advance diet. (9) Chronic respiratory failure Current Visit: No Status: Chronic Qualifiers: Respiratory failure complication: hypoxia Qualified Code(s): J96.11 - Chronic respiratory failure with hypoxia (10) Abdominal hernia Current Visit: Yes Status: Chronic Assessment and plan: No acute events, follow up with surgery as out-patient Qualifiers: Hernia type: unspecified Obstruction and gangrene presence: without obstruction or gangrene Recurrence: non-recurrent Qualified Code(s): K46.9 - Unspecified abdominal hernia without obstruction or gangrene (11) Leukocytosis Current Visit: Yes Status: Acute Assessment and plan: WBC on admission 16,000 Patient on chronic steroid therapy No fever Continue Levaquin-day 2 Qualifiers: Leukocytosis type: unspecified Qualified Code(s): D72.829 - Elevated white blood cell count, unspecified - Constitutional Vitals: Temp Pulse Resp BP Pulse Ox 98.5 F 76 18 143/80 97 09/23/17 07:43 09/23/17 07:43 09/23/17 07:43 09/23/17 07:43 09/23/17 07:43 General appearance: Present: A&O X 3, morbidly obese, pleasant - Head Head exam: Present: atraumatic, normocephalic - Eye Eye exam: Present: PERRL, conjuntiva pink, sclera anicteric Pupils: Present: PERRL - Neck Neck exam general surgery: Present: supple, trachea midline. Absent: lymphadenopathy - Respiratory Respiratory exam: Present: CTAB. Absent: accessory muscle use, rales, rhonchi, wheezes - Cardiovascular Cardiovascular exam: Present: RRR, +S1, +S2. Absent: diastolic murmur, gallop, rubs, systolic murmur - GI/Abdominal GI/Abdominal exam: Present: normal bowel sounds, soft, no peritoneal signs. Absent: distended, tenderness - Extremities Exam Extremities exam: Present: warm, radial pulses palpable and symmetrical. Absent : calf tenderness, cyanotic, pedal edema - Neurological Exam Neurological exam: Present: alert, CN II-XII intact, oriented X3, no focal deficits. Absent: pronater drift, facial droop, speech deficit - Skin Skin exam: Present: dry, intact Internal Medicine: Result - Labs CBC & Chem 7: 09/23/17 03:55 09/23/17 06:35 Labs: Short CBC 09/23/17 Range/Units 03:55 WBC 18.3 H (4.3-11.1) K/mcL Hgb 9.9 L D (12.9-16.9) g/dL Hct 31.8 L (37.5-50.1) % Plt Count 364 (140-400) K/mcL Neutrophils # 15.0 H (1.6-8.9) K/mcL BMP 09/23/17 06:35 Sodium 139 Potassium 4.2 Chloride 107 Carbon Dioxide 21 BUN 16 Creatinine 0.88 Glucose 126 H Calcium 9.1 Consult Discharge Plan - Plan Referrals: Jesus Machuca DO [Primary Care Provider] -
[2017-09-23] MEDS: levoFLOXacin 750 MG TABLET PO SCH (12:22)
[2017-09-23] MEDS: Ringers Solution, Lactated 1,000 ML IVC SCH (12:28)
--- NOTE | 2017-09-23 17:20 | Electrocardiograph Report ---
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
[2017-09-23] MEDS: *HR* OxyCODONE/APAP 10/325 TABLET PO PRN (20:18)
[2017-09-23] MEDS: Psyllium 1 PACKET POWD.PACK PO SCH (20:26)
[2017-09-23] MEDS: clonazePAM 0.5 MG TABLET PO PRN (22:28)
[2017-09-24] MEDS: Ipratropium/Albuterol Neb 3 ML IH SCH ×4 (04:38→23:31)
[2017-09-24] MEDS: *HR* Enoxaparin 40 MG/0.4 ML SYRINGE SQ SCH (06:19)
[2017-09-24 08:09] LABS: Basophils # 0.1 K/mcL (0.0-0.2); Basophils % 0.3 %; Eosinophils % 0.2 %; Hematocrit 32.3 % (37.5-50.1); Hemoglobin 10.2 g/dL (12.9-16.9); Immature Granulocytes % 0.9 % (0-4); Lymphocytes # 2.2 K/mcL (0.6-4.6); Mean Corpuscular HGB Conc 31.6 g/dL (31.6-35.5); Mean Corpuscular Hemoglobin 26.5 pg (28.0-33.3); Mean Corpuscular Volume 83.9 fL (83.0-100.0); Mean Platelet Volume 9.1 fL (9.4-12.4); Monocytes # 0.9 K/mcL (0.0-1.3); Neutrophils # 11.1 K/mcL (1.6-8.9); Platelet Count 326 K/mcL (140-400); Red Blood Count 3.85 M/mcL (4.19-5.50); Red Cell Distribution Width 16.7 % (11.5-14.5); Segmented Neutrophils % 77.6 %
[2017-09-24 08:19] LABS: BUN/Creatinine Ratio 14 (6-26); Blood Urea Nitrogen 14 mg/dL (8-26); Calcium 9.6 mg/dL (8.6-10.8); Carbon Dioxide 26 mEq/L (19-29); Chloride 105 mEq/L (98-109); Glucose 130 mg/dL (70-99); Osmolality,Calculated 290 (280-300); Potassium 4.3 mEq/L (3.5-4.5); Sodium 139 mEq/L (136-145); eGFR For African Americans > 60 (> 60); eGFR For Non-African Americans > 60 (> 60)
[2017-09-24] MEDS: Budesonide/Formoterol 160/4.5 MDI IH SCH ×3 (10:57→23:45)
[2017-09-24] MEDS: levoFLOXacin 750 MG TABLET PO SCH (12:25)
[2017-09-24] MEDS: Aspirin 81 MG TAB.CHEW PO SCH (12:25)
[2017-09-24] MEDS: predniSONE 20 MG TABLET PO SCH (12:26)
[2017-09-24] MEDS: (Roflumilast [Daliresp] 500 MCG) PO SCH (12:27)
[2017-09-24] MEDS: (Umeclidinium Bromide [Incruse Ellipta] 1 PUFF) IH SCH (12:27)
[2017-09-24] MEDS: *HR* OxyCODONE/APAP 10/325 TABLET PO PRN (12:29)
--- NOTE | 2017-09-24 13:07 | Internal Med Progress Note ---
Date of Encounter: 09/24/17 Time of Encounter: 13:07 - Assessment and plan (1) Odynophagia Current Visit: Yes Status: Acute Assessment and plan: GI consulted For possible review on Tuesday if patient is still in-patient. (2) HTN (hypertension) Current Visit: Yes Status: Chronic Assessment and plan: Controlled. Continue current medications. Qualifiers: Hypertension type: essential hypertension Qualified Code(s): I10 - Essential (primary) hypertension (3) COPD (chronic obstructive pulmonary disease) Current Visit: Yes Status: Chronic Assessment and plan: See acute bronchitis. Qualifiers: COPD type: unspecified COPD Qualified Code(s): J44.9 - Chronic obstructive pulmonary disease, unspecified (4) Anxiety Current Visit: Yes Status: Chronic Assessment and plan: Continue home medications. (5) Obstructive sleep apnea Current Visit: Yes Status: Chronic Assessment and plan: CPAP at bedtime. (6) GERD (gastroesophageal reflux disease) Current Visit: Yes Status: Chronic Assessment and plan: Continue home PPI. Qualifiers: Esophagitis presence: esophagitis presence not specified Qualified Code(s) : K21.9 - Gastro-esophageal reflux disease without esophagitis (7) Anemia Current Visit: Yes Status: Chronic Assessment and plan: Hemoglobin is stable and at baseline. Qualifiers: Anemia type: iron deficiency Iron deficiency anemia type: chronic blood loss Qualified Code(s): D50.0 - Iron deficiency anemia secondary to blood loss (chronic) (8) Lactic acidosis Current Visit: Yes Status: Acute Assessment and plan: Admitting lactate 4.8, now improved. Possibly due to fat necrosis. No evidence of small bowel obstruction on small bowel follow through Surgery has signed off. Advance diet. (9) Chronic respiratory failure Current Visit: No Status: Chronic Qualifiers: Respiratory failure complication: hypoxia Qualified Code(s): J96.11 - Chronic respiratory failure with hypoxia (10) Abdominal hernia Current Visit: Yes Status: Chronic Assessment and plan: No acute events, follow up with surgery as out-patient Qualifiers: Hernia type: unspecified Obstruction and gangrene presence: without obstruction or gangrene Recurrence: non-recurrent Qualified Code(s): K46.9 - Unspecified abdominal hernia without obstruction or gangrene (11) Leukocytosis Current Visit: Yes Status: Acute Assessment and plan: WBC on admission 16,000, improving, WBC today is 14. Patient on chronic steroid therapy No fever Continue Levaquin-day 3 Qualifiers: Leukocytosis type: unspecified Qualified Code(s): D72.829 - Elevated white blood cell count, unspecified - Subjective Interval history: Seen and evaluated at bedside NO new complains Vitals are stable patient is complainingof odynophagia even though he is tolerating feeds , we will await GI eval - Constitutional Vitals: Temp Pulse Resp BP Pulse Ox 97.8 F 76 18 147/84 97 09/24/17 12:06 09/24/17 12:06 09/24/17 12:06 09/24/17 12:06 09/24/17 12:06 General appearance: Present: A&O X 3, morbidly obese, pleasant - Head Head exam: Present: atraumatic, normocephalic - Eye Eye exam: Present: PERRL, conjuntiva pink, sclera anicteric Pupils: Present: PERRL - Neck Neck exam general surgery: Present: supple, trachea midline. Absent: lymphadenopathy - Respiratory Respiratory exam: Present: CTAB. Absent: accessory muscle use, rales, rhonchi, wheezes - Cardiovascular Cardiovascular exam: Present: RRR, +S1, +S2. Absent: diastolic murmur, gallop, rubs, systolic murmur - GI/Abdominal GI/Abdominal exam: Present: normal bowel sounds, soft, no peritoneal signs. Absent: distended, tenderness - Extremities Exam Extremities exam: Present: warm, radial pulses palpable and symmetrical. Absent : calf tenderness, cyanotic, pedal edema - Neurological Exam Neurological exam: Present: alert, CN II-XII intact, oriented X3, no focal deficits. Absent: pronater drift, facial droop, speech deficit - Skin Skin exam: Present: dry, intact Internal Medicine: Result - Labs CBC & Chem 7: 09/24/17 07:42 09/24/17 07:42 Labs: Short CBC 09/24/17 Range/Units 07:42 WBC 14.3 H (4.3-11.1) K/mcL Hgb 10.2 L (12.9-16.9) g/dL Hct 32.3 L (37.5-50.1) % Plt Count 326 (140-400) K/mcL Neutrophils # 11.1 H (1.6-8.9) K/mcL BMP 09/24/17 07:42 Sodium 139 Potassium 4.3 Chloride 105 Carbon Dioxide 26 BUN 14 Creatinine 0.97 Glucose 130 H Calcium 9.6 Consult Discharge Plan - Plan Referrals: Jesus Machuca DO [Primary Care Provider] -
[2017-09-24] MEDS: Sennosides 8.6 MG TABLET PO SCH ×2 (16:48→20:16)
[2017-09-24] MEDS: Psyllium 1 PACKET POWD.PACK PO SCH (20:41)
[2017-09-24] MEDS ORDERED: Sennosides 8.6 MG TABLET PO SCH (21:00)
[2017-09-24] MEDS: clonazePAM 0.5 MG TABLET PO PRN (23:05)
[2017-09-25 03:33] LABS: Basophils # 0.1 K/mcL (0.0-0.2); Basophils % 0.4 %; Eosinophils # 0.1 K/mcL (0.0-0.6); Eosinophils % 0.6 %; Hematocrit 31.1 % (37.5-50.1); Hemoglobin 9.7 g/dL (12.9-16.9); Immature Granulocytes % 1.5 % (0-4); Lymphocytes # 2.3 K/mcL (0.6-4.6); Lymphocytes % 16.8 %; Mean Corpuscular HGB Conc 31.2 g/dL (31.6-35.5); Mean Corpuscular Hemoglobin 25.9 pg (28.0-33.3); Mean Corpuscular Volume 82.9 fL (83.0-100.0); Mean Platelet Volume 8.8 fL (9.4-12.4); Monocytes # 0.8 K/mcL (0.0-1.3); Monocytes % 5.7 %; Neutrophils # 10.4 K/mcL (1.6-8.9); Platelet Count 371 K/mcL (140-400); Red Blood Count 3.75 M/mcL (4.19-5.50); Red Cell Distribution Width 16.4 % (11.5-14.5)
[2017-09-25 03:44] LABS: BUN/Creatinine Ratio 14 (6-26); Blood Urea Nitrogen 15 mg/dL (8-26); Calcium 9.4 mg/dL (8.6-10.8); Carbon Dioxide 24 mEq/L (19-29); Chloride 105 mEq/L (98-109); Glucose 150 mg/dL (70-99); Osmolality,Calculated 290 (280-300); Potassium 4.1 mEq/L (3.5-4.5); Sodium 138 mEq/L (136-145); eGFR For African Americans > 60 (> 60); eGFR For Non-African Americans > 60 (> 60)
[2017-09-25] MEDS: Ipratropium/Albuterol Neb 3 ML IH SCH ×4 (04:43→22:00)
[2017-09-25] MEDS: *HR* Enoxaparin 40 MG/0.4 ML SYRINGE SQ SCH (04:55)
[2017-09-25] MEDS: *HR* OxyCODONE/APAP 10/325 TABLET PO PRN (09:07)
[2017-09-25] MEDS: predniSONE 20 MG TABLET PO SCH (09:07)
[2017-09-25] MEDS: levoFLOXacin 750 MG TABLET PO SCH (09:08)
[2017-09-25] MEDS: Aspirin 81 MG TAB.CHEW PO SCH (09:08)
[2017-09-25] MEDS: (Roflumilast [Daliresp] 500 MCG) PO SCH (09:09)
[2017-09-25] MEDS: (Umeclidinium Bromide [Incruse Ellipta] 1 PUFF) IH SCH (09:09)
--- NOTE | 2017-09-25 10:41 | Internal Med Progress Note ---
Date of Encounter: 09/25/17 Time of Encounter: 10:39 - Assessment and plan (1) Odynophagia Current Visit: Yes Status: Acute Assessment and plan: GI consulted For possible review am NPO from NH (2) HTN (hypertension) Current Visit: Yes Status: Chronic Assessment and plan: Controlled. Continue current medications. Qualifiers: Hypertension type: essential hypertension Qualified Code(s): I10 - Essential (primary) hypertension (3) COPD (chronic obstructive pulmonary disease) Current Visit: Yes Status: Chronic Assessment and plan: See acute bronchitis. Qualifiers: COPD type: unspecified COPD Qualified Code(s): J44.9 - Chronic obstructive pulmonary disease, unspecified (4) Anxiety Current Visit: Yes Status: Chronic Assessment and plan: Continue home medications. (5) Obstructive sleep apnea Current Visit: Yes Status: Chronic Assessment and plan: CPAP at bedtime. (6) GERD (gastroesophageal reflux disease) Current Visit: Yes Status: Chronic Assessment and plan: Continue home PPI. Qualifiers: Esophagitis presence: esophagitis presence not specified Qualified Code(s) : K21.9 - Gastro-esophageal reflux disease without esophagitis (7) Anemia Current Visit: Yes Status: Chronic Assessment and plan: Hemoglobin is stable and at baseline. Qualifiers: Anemia type: iron deficiency Iron deficiency anemia type: chronic blood loss Qualified Code(s): D50.0 - Iron deficiency anemia secondary to blood loss (chronic) (8) Lactic acidosis Current Visit: Yes Status: Resolved Assessment and plan: Admitting lactate 4.8, now improved. Possibly due to fat necrosis. No evidence of small bowel obstruction on small bowel follow through Surgery has signed off. Advance diet. (9) Chronic respiratory failure Current Visit: Yes Status: Chronic Qualifiers: Respiratory failure complication: hypoxia Qualified Code(s): J96.11 - Chronic respiratory failure with hypoxia (10) Abdominal hernia Current Visit: Yes Status: Chronic Assessment and plan: No acute events, follow up with surgery as out-patient Qualifiers: Hernia type: unspecified Obstruction and gangrene presence: without obstruction or gangrene Recurrence: non-recurrent Qualified Code(s): K46.9 - Unspecified abdominal hernia without obstruction or gangrene (11) Leukocytosis Current Visit: Yes Status: Acute Assessment and plan: WBC on admission 16,000, improving, WBC today is 13. Patient on chronic steroid therapy No fever Continue Levaquin-day 4 Qualifiers: Leukocytosis type: unspecified Qualified Code(s): D72.829 - Elevated white blood cell count, unspecified (12) Acute bronchitis Current Visit: Yes Status: Acute Assessment and plan: Continue Levaquin, Prednisone, Duonebs CT Chest shows no pneumonia Qualifiers: Bronchitis organism: other organism Qualified Code(s): J20.8 - Acute bronchitis due to other specified organisms - Subjective Interval history: Seen and evaluated at bedside NO new complains Vitals are stable patient is complaining of odynophagia even though he is tolerating feeds , we will await GI eval He does state his odynophagia has improved he has also been having BM - Constitutional Vitals: Temp Pulse Resp BP Pulse Ox 97.8 F 66 18 134/79 96 09/25/17 07:13 09/25/17 07:13 09/25/17 07:13 09/25/17 07:13 09/25/17 07:13 General appearance: Present: A&O X 3, morbidly obese, pleasant - Head Head exam: Present: atraumatic, normocephalic - Eye Eye exam: Present: PERRL, conjuntiva pink, sclera anicteric Pupils: Present: PERRL - Neck Neck exam general surgery: Present: supple, trachea midline. Absent: lymphadenopathy - Respiratory Respiratory exam: Present: CTAB. Absent: accessory muscle use, rales, rhonchi, wheezes - Cardiovascular Cardiovascular exam: Present: RRR, +S1, +S2. Absent: diastolic murmur, gallop, rubs, systolic murmur - GI/Abdominal GI/Abdominal exam: Present: normal bowel sounds, soft, no peritoneal signs. Absent: distended, tenderness - Extremities Exam Extremities exam: Present: pedal edema, warm, radial pulses palpable and symmetrical. Absent: calf tenderness, cyanotic - Neurological Exam Neurological exam: Present: alert, CN II-XII intact, oriented X3, no focal deficits. Absent: pronater drift, facial droop, speech deficit - Skin Skin exam: Present: dry, intact Internal Medicine: Result - Labs CBC & Chem 7: 09/25/17 03:24 09/25/17 03:24 Labs: Short CBC 09/25/17 Range/Units 03:24 WBC 13.9 H (4.3-11.1) K/mcL Hgb 9.7 L (12.9-16.9) g/dL Hct 31.1 L (37.5-50.1) % Plt Count 371 (140-400) K/mcL Neutrophils # 10.4 H (1.6-8.9) K/mcL BMP 09/25/17 03:24 Sodium 138 Potassium 4.1 Chloride 105 Carbon Dioxide 24 BUN 15 Creatinine 1.04 Glucose 150 H Calcium 9.4 Consult Discharge Plan - Plan Referrals: Jesus Machuca DO [Primary Care Provider] -
[2017-09-25] MEDS: Budesonide/Formoterol 160/4.5 MDI IH SCH ×2 (10:47→21:56)
[2017-09-25] MEDS: Sennosides 8.6 MG TABLET PO SCH ×2 (17:11→17:27)
[2017-09-25] MEDS: Loratadine 10 MG TABLET PO PRN (17:28)
[2017-09-25] MEDS: Psyllium 1 PACKET POWD.PACK PO SCH (17:28)
[2017-09-25] MEDS: clonazePAM 0.5 MG TABLET PO PRN (22:33)
[2017-09-26] MEDS: Ipratropium/Albuterol Neb 3 ML IH SCH ×4 (04:07→22:44)
[2017-09-26 06:56] LABS: Basophils # 0.1 K/mcL (0.0-0.2); Basophils % 0.6 %; Eosinophils # 0.1 K/mcL (0.0-0.6); Hematocrit 31.4 % (37.5-50.1); Hemoglobin 9.8 g/dL (12.9-16.9); Immature Granulocytes % 1.5 % (0-4); Lymphocytes # 2.7 K/mcL (0.6-4.6); Lymphocytes % 23.1 %; Mean Corpuscular HGB Conc 31.2 g/dL (31.6-35.5); Mean Corpuscular Hemoglobin 25.9 pg (28.0-33.3); Mean Corpuscular Volume 82.8 fL (83.0-100.0); Mean Platelet Volume 9.1 fL (9.4-12.4); Monocytes # 0.8 K/mcL (0.0-1.3); Monocytes % 6.4 %; Neutrophils # 7.9 K/mcL (1.6-8.9); Platelet Count 346 K/mcL (140-400); Red Blood Count 3.79 M/mcL (4.19-5.50); Red Cell Distribution Width 16.5 % (11.5-14.5); Segmented Neutrophils % 67.4 %
[2017-09-26] MEDS ORDERED: Furosemide 40 MG/4 ML VIAL IVP ONE (10:22)
[2017-09-26] MEDS: Budesonide/Formoterol 160/4.5 MDI IH SCH ×2 (10:26→22:44)
--- NOTE | 2017-09-26 10:26 | Internal Med Progress Note ---
Date of Encounter: 09/26/17 Time of Encounter: 10:23 - Assessment and plan (1) Odynophagia Current Visit: Yes Status: Acute Assessment and plan: GI consulted Possible EGD today NPO (2) HTN (hypertension) Current Visit: Yes Status: Chronic Assessment and plan: Controlled. Continue current medications. Qualifiers: Hypertension type: essential hypertension Qualified Code(s): I10 - Essential (primary) hypertension (3) COPD (chronic obstructive pulmonary disease) Current Visit: Yes Status: Chronic Assessment and plan: See acute bronchitis. Qualifiers: COPD type: unspecified COPD Qualified Code(s): J44.9 - Chronic obstructive pulmonary disease, unspecified (4) Anxiety Current Visit: Yes Status: Chronic Assessment and plan: Continue home medications. (5) Obstructive sleep apnea Current Visit: Yes Status: Chronic Assessment and plan: CPAP at bedtime. (6) GERD (gastroesophageal reflux disease) Current Visit: Yes Status: Chronic Assessment and plan: Continue home PPI. Qualifiers: Esophagitis presence: esophagitis presence not specified Qualified Code(s) : K21.9 - Gastro-esophageal reflux disease without esophagitis (7) Anemia Current Visit: Yes Status: Chronic Assessment and plan: Hemoglobin is stable and at baseline. Qualifiers: Anemia type: iron deficiency Iron deficiency anemia type: chronic blood loss Qualified Code(s): D50.0 - Iron deficiency anemia secondary to blood loss (chronic) (8) Lactic acidosis Current Visit: Yes Status: Resolved Assessment and plan: Admitting lactate 4.8, now improved. Possibly due to fat necrosis. No evidence of small bowel obstruction on small bowel follow through Surgery has signed off. Advance diet. (9) Chronic respiratory failure Current Visit: Yes Status: Chronic Assessment and plan: Continue home dose of O2 Qualifiers: Respiratory failure complication: hypoxia Qualified Code(s): J96.11 - Chronic respiratory failure with hypoxia (10) Abdominal hernia Current Visit: Yes Status: Chronic Assessment and plan: No acute events, follow up with surgery as out-patient Qualifiers: Hernia type: unspecified Obstruction and gangrene presence: without obstruction or gangrene Recurrence: non-recurrent Qualified Code(s): K46.9 - Unspecified abdominal hernia without obstruction or gangrene (11) Leukocytosis Current Visit: Yes Status: Acute Assessment and plan: WBC on admission 16,000, improving, WBC today is 11. Patient on chronic steroid therapy No fever Continue Levaquin-day 5 Qualifiers: Leukocytosis type: unspecified Qualified Code(s): D72.829 - Elevated white blood cell count, unspecified (12) Acute bronchitis Current Visit: Yes Status: Acute Assessment and plan: Continue Levaquin, Prednisone, Duonebs CT Chest shows no pneumonia Qualifiers: Bronchitis organism: other organism Qualified Code(s): J20.8 - Acute bronchitis due to other specified organisms (13) CHF (congestive heart failure) Current Visit: Yes Status: Chronic Assessment and plan: REsume home dose of lasix No indication for lasix Qualifiers: Congestive heart failure type: diastolic Congestive heart failure chronicity: chronic Qualified Code(s): I50.32 - Chronic diastolic (congestive ) heart failure - Subjective Interval history: Seen and evaluated at bedside Complains of leg swelling, patient states he takes lasix at home, BID, not on home emd rec he received IVF on admission We will restart his home dose of lasix Vitals are stable patient is complaining of odynophagia even though he is tolerating feeds ,he is awaiting GI eval - Constitutional Vitals: Temp Pulse Resp BP Pulse Ox 97.9 F 63 18 120/67 97 09/26/17 05:52 09/26/17 05:52 09/26/17 05:52 09/26/17 05:52 09/26/17 05:52 General appearance: Present: A&O X 3, morbidly obese, pleasant - Head Head exam: Present: atraumatic, normocephalic - Eye Eye exam: Present: PERRL, conjuntiva pink, sclera anicteric Pupils: Present: PERRL - Neck Neck exam general surgery: Present: supple, trachea midline. Absent: lymphadenopathy - Respiratory Respiratory exam: Present: CTAB. Absent: accessory muscle use, rales, rhonchi, wheezes - Cardiovascular Cardiovascular exam: Present: RRR, +S1, +S2. Absent: diastolic murmur, gallop, rubs, systolic murmur - GI/Abdominal GI/Abdominal exam: Present: normal bowel sounds, soft, no peritoneal signs. Absent: distended, tenderness - Extremities Exam Extremities exam: Present: pedal edema (2+ piting pedal edema) - Neurological Exam Neurological exam: Present: alert, CN II-XII intact, oriented X3, no focal deficits. Absent: pronater drift, facial droop, speech deficit - Skin Skin exam: Present: dry, intact Internal Medicine: Result - Labs CBC & Chem 7: 09/26/17 05:47 09/25/17 03:24 Labs: Short CBC 09/26/17 Range/Units 05:47 WBC 11.8 H (4.3-11.1) K/mcL Hgb 9.8 L (12.9-16.9) g/dL Hct 31.4 L (37.5-50.1) % Plt Count 346 (140-400) K/mcL Neutrophils # 7.9 (1.6-8.9) K/mcL Consult Discharge Plan - Plan Referrals: Jesus Machuca DO [Primary Care Provider] -
--- NOTE | 2017-09-26 12:42 | Gastroenterology Consult Note ---
Date of Encounter: 09/26/17 Time of Encounter: 10:45 - Assessment and plan (1) Odynophagia Current Visit: Yes Status: Acute Assessment and plan: EGD today continue PPI (2) Abdominal hernia Current Visit: Yes Status: Chronic Assessment and plan: Seen by surgery, conservative management suggested Qualifiers: Hernia type: unspecified Obstruction and gangrene presence: without obstruction or gangrene Recurrence: non-recurrent Qualified Code(s): K46.9 - Unspecified abdominal hernia without obstruction or gangrene - Time Spent With Patient Total time spent is greater than 50% in coordination of care (as documented) at patient's floor/unit and/or counseling patient: GI History of Present Illness - Data of Consult Patient: known to practice within the last 3 years Consult date: 09/26/17 Requesting Physician: Miquel Ceron MD - Consult Narrative Reason for consult: odynophasia History of present illness: Mr. Herring is a 62 year old male with a pmhx of COPD, diabetes, reflux and hypertension admitted for likely acute bronchitis. Surgery was consulted for possible incarcerated umbilical hernia. CT scan emergency department showed umbilical hernia, new since previous exam with loop of small bowel which is mildly inflamed and proximal mild dilation. He was seen by surgery and recommended followup as an outpatient and they signed off of the case. He had small bowel resection 12/24 for mesh erosion into small bowel. He is also complaining of odynophagia and chest pain with eating. Troponins were negative. Hgb is 9.8 He reports pain in chest and epigastric area with any food or drinks. for thepast few days. He has nausea but is relieved on reglan. He reports it feels as if food gets stuck in his throat. He has occasional constipation, denies diarrhea, occasional scant bright red blood only with wiping. NSAIDS: asa Anticoagulants: lovenox EGD: Colon: GUL 10/26 diverticulosis, internal hemorrhoids, tubular adenomatous polyps repeat in 3 years Past Med Surg Social Fam HX - Past Medical History Medical history: cardiomyopathy, COPD, diabetes, GERD, hypertension, other Psychiatric history: anxiety, depression - Past Surgical History Surgical History: cataract, herniorrhaphy, other - Social History Smoking Status: Former smoker Smokeless Tobacco Status: No Alcohol use: rarely Drug use: none - Family History Father Family Member Ethnicity: Non- Living Status: Age at : 76 Cause of : pancreatic cancer Hx Family Cardiac Disorders: No Hx Family Respiratory Disorders: No Hx Family Cancer: Yes Hx Family GI Disorders: No Hx Family Endocrine Disorder: Yes Hx Family Neuromuscular Disorders: No Hx Family Neurologic Disorders: No Hx Family HEENT Disorders: No Hx Family Autoimmune Disorders: No Mother Adopted: No Family Member Ethnicity: Non- Living Status: Age at : 60 Cause of : [place]/ cancer Hx Family Cardiac Disorders: Yes Hx Family Respiratory Disorders: Yes Hx Family Cancer: Yes Hx Family GI Disorders: No Hx Family Endocrine Disorder: No Hx Family Neuromuscular Disorders: No Hx Family Neurologic Disorders: No Hx Family HEENT Disorders: No Hx Family Autoimmune Disorders: No Sister Living Status: Still Living Hx Family Cardiac Disorders: Yes Hx Family Respiratory Disorders: Yes Hx Family Cancer: No Hx Family GI Disorders: No Hx Family Endocrine Disorder: No Hx Family Neuromuscular Disorders: No Hx Family Neurologic Disorders: No Hx Family HEENT Disorders: No Hx Family Autoimmune Disorders: No Review of Systems: GI: as per [facility] GENERAL: denies fever, or chills EYES: denies yellow discoloration ENT: denies pain with swallowing or difficulty swallowing CARDIO: see hpi RESP: No Shortness of breath with exertion : denies change in color of urine NEURO: denies any weakness HEME: Denies any bruising MS: denies joint pain, joint swelling or back pain. DERM: denies rash or itching PSYCH: Denies history of anxiety or depression - Constitutional Vitals: Temp Pulse Resp BP Pulse Ox 97.9 F 80 18 136/79 98 09/26/17 11:01 09/26/17 11:01 09/26/17 11:01 09/26/17 11:01 09/26/17 11:01 Exam: CONSTITUTIONAL:~alert, no acute distress.~HEAD:~normocephalic.~EYES:~no jaundice.~NECK:~no obvious swelling.~HEART:~regular rate and rhythm, no murmurs. ~LUNGS:~bilateral good air entry.~ABDOMEN:~non distended, soft, non tender, no masses palpable, no organomegaly, scars well healed, obesity.~RECTAL EXAM:~ Deferred.~EXTREMITIES:~no clubbing, cyanosis or edema.~SKIN:~no stigmata of chronic liver disease, pallor noted.~NEUROLOGIC:~no obvious focal defect.~~~~ Results - Labs CBC & Chem 7: 09/26/17 05:47 09/25/17 03:24 Labs: Last Result Calcium 9.4 mg/dL (8.6-10.8) 09/25/17 03:24 Troponin I 0.00 ng/mL (0-0.03) 09/22/17 11:04 Entire Visit Hgb 9.8 g/dL (12.9-16.9) L 09/26/17 05:47 Hct 31.4 % (37.5-50.1) L 09/26/17 05:47 Total Bilirubin 0.3 mg/dL (0.2-1.2) 09/22/17 11:04 AST 16 Units/L (5-34) 09/22/17 11:04 ALT 19 Units/L (0-55) 09/22/17 11:04 Lipase 25 Units/L (8-78) 09/22/17 11:04 Consult Discharge Plan - Plan Referrals: Jesus Machuca DO [Primary Care Provider] -
[2017-09-26] MEDS: *HR* Enoxaparin 40 MG/0.4 ML SYRINGE SQ SCH (16:26)
[2017-09-26] MEDS: levoFLOXacin 750 MG TABLET PO SCH (16:27)
[2017-09-26] MEDS: Furosemide 40 MG TABLET PO SCH (16:28)
[2017-09-26] MEDS: predniSONE 20 MG TABLET PO SCH (16:28)
[2017-09-26] MEDS: Loratadine 10 MG TABLET PO PRN (16:29)
[2017-09-26] MEDS: Aspirin 81 MG TAB.CHEW PO SCH (16:29)
[2017-09-26] MEDS: (Umeclidinium Bromide [Incruse Ellipta] 1 PUFF) IH SCH (16:30)
[2017-09-26] MEDS: (Roflumilast [Daliresp] 500 MCG) PO SCH (16:30)
[2017-09-26] MEDS: Sennosides 8.6 MG TABLET PO SCH (16:41)
[2017-09-26] MEDS: clonazePAM 0.5 MG TABLET PO PRN (22:41)
[2017-09-26] MEDS: Psyllium 1 PACKET POWD.PACK PO SCH (22:41)
[2017-09-27 03:43] LABS: Basophils # 0.1 K/mcL (0.0-0.2); Basophils % 0.3 %; Eosinophils % 0.1 %; Hematocrit 34.4 % (37.5-50.1); Hemoglobin 10.7 g/dL (12.9-16.9); Immature Granulocytes % 1.1 % (0-4); Lymphocytes # 1.3 K/mcL (0.6-4.6); Mean Corpuscular HGB Conc 31.1 g/dL (31.6-35.5); Mean Corpuscular Volume 83.5 fL (83.0-100.0); Mean Platelet Volume 9.3 fL (9.4-12.4); Monocytes # 0.6 K/mcL (0.0-1.3); Neutrophils # 13.6 K/mcL (1.6-8.9); Platelet Count 391 K/mcL (140-400); Red Blood Count 4.12 M/mcL (4.19-5.50); Red Cell Distribution Width 16.3 % (11.5-14.5); Segmented Neutrophils % 86.5 %
[2017-09-27 03:56] LABS: BUN/Creatinine Ratio 18 (6-26); Blood Urea Nitrogen 21 mg/dL (8-26); Calcium 9.6 mg/dL (8.6-10.8); Carbon Dioxide 28 mEq/L (19-29); Chloride 100 mEq/L (98-109); Glucose 176 mg/dL (70-99); Osmolality,Calculated 281 (280-300); Potassium 4.7 mEq/L (3.5-4.5); eGFR For African Americans > 60 (> 60); eGFR For Non-African Americans > 60 (> 60)
[2017-09-27 04:02] LABS: Sodium 132 mEq/L (136-145)
[2017-09-27] MEDS: Ipratropium/Albuterol Neb 3 ML IH SCH ×3 (04:29→16:12)
[2017-09-27] MEDS: *HR* Enoxaparin 40 MG/0.4 ML SYRINGE SQ SCH (06:24)
[2017-09-27] MEDS: levoFLOXacin 750 MG TABLET PO SCH (08:42)
[2017-09-27] MEDS: Aspirin 81 MG TAB.CHEW PO SCH (08:44)
[2017-09-27] MEDS: Furosemide 40 MG TABLET PO SCH (08:45)
[2017-09-27] MEDS: predniSONE 20 MG TABLET PO SCH (08:45)
[2017-09-27] MEDS: (Roflumilast [Daliresp] 500 MCG) PO SCH (09:06)
[2017-09-27] MEDS: (Umeclidinium Bromide [Incruse Ellipta] 1 PUFF) IH SCH (09:07)
[2017-09-27] MEDS: Budesonide/Formoterol 160/4.5 MDI IH SCH (10:44)
--- NOTE | 2017-09-27 12:00 | Anesthesia Evaluation PreOp ---
Date of Encounter: 09/27/17 Time of Encounter: 13:17 - Past History Cardiac History: CHF, HTN, Hyperlipidemia Pulmonary History: Smoker (home o2), COPD CLINICAL OUTCOMES MANAGER History: Denies Any Significant HX Other Medical History: GERD, Other (morbid obesity) Anesthesia History: No Prior Anesthetic Complications, Past Anesthesia (ex lap with bowel resection) Alcohol Use: rarely Drug use: none Medications and Allergies Albuterol Sulfate [Albuterol Inhaler] 2 puff IH Q4HR PRN 03/16/16 [History] Azelastine 0.1% Nasal [place] [Astelin] 1 spray NS BID 03/16/16 [History] Budesonide/Formoterol 160/4.5 [Symbicort 160/4.5] 2 puff IH BIDR 03/16/16 [ History] Ergocalciferol (VITAMIN D2) [Vitamin D] 400 unit PO DAILY 03/16/16 [History] Esomeprazole Magnesium [Nexium] 40 mg PO BID 03/16/16 [History] Fluticasone Propionate Nasal [Flonase] 2 spray NS DAILY 03/16/16 [History] Ketoconazole Shampoo [Nizoral Shampoo] 1 appl TP 3XW 03/16/16 [History] Psyllium Seed (with Sugar) [Metamucil Powder] 1 each PO HS 03/16/16 [History] Roflumilast [Daliresp] 500 mcg PO DAILY 03/16/16 [History] Sodium Chloride [S [place] Saline] 1 spray NS BID PRN 03/16/16 [History] Metoclopramide [Reglan] 10 mg PO BID PRN 11/03/16 [History] Umeclidinium [place] [Incruse Ellipta] 1 puff IH DAILY 11/03/16 [History] Oxygen 3 l .ROUTE AD 11/20/16 [History] Losartan [Cozaar] 25 mg PO DAILY #30 tablet 12/10/16 [Rx] Cetirizine HCl [Zyrtec] 10 mg PO DAILY PRN #0 01/27/17 [Rx] Magnesium Oxide [Mag-Ox] 400 mg PO DAILY #15 tablet 01/27/17 [Rx] Potassium Chloride 20 meq PO DAILY #15 tab.er.prt 01/27/17 [Rx] Metoprolol [Lopressor] 25 mg PO BID 07/05/17 [History] predniSONE [PredniSONE] 5 mg PO DAILY 07/05/17 [History] OxyCODONE/APAP 10/325 [Percocet 10/325 MG] 1 each PO Q8H PRN #14 tablet [Rx] Acetaminophen [Tylenol] 1,000 mg PO BID PRN 09/22/17 [History] Aspirin 81 mg PO DAILY 09/22/17 [History] Clotrimazole 1% CRM [Lotrimin 1%] 1 appl TP BID 09/22/17 [History] Docusate Sodium [Dok] 300 mg PO QAM 09/22/17 [History] Docusate Sodium [Dok] 600 mg PO QPM 09/22/17 [History] Guaifenesin [Mucinex] 400 mg PO Q12H PRN 09/22/17 [History] Ipratropium/Albuterol Neb [Duoneb] 3 ml IH Q4H PRN 09/22/17 [History] Mv-Mn/FA/Vit K/Lycop/Lut/Coq10 [Daily Multivitamin Capsule] 1 tab PO DAILY 09/22 [History] Ondansetron HCl [Zofran] 4 mg PO Q4H PRN 09/22/17 [History] clonazePAM [Klonopin] 0.5 mg PO TID PRN 09/22/17 [History] Furosemide [Lasix] 40 mg PO BID 09/27/17 [History] 3 Allergy/AdvReac Type Severity Reaction Status Date / Time morphine Allergy Difficulty Verified 09/22/17 16:19 Breathing sulfamethoxazole Allergy Hives Verified 09/22/17 16:19 [From Bactrim] trimethoprim [From Bactrim] Allergy Hives Verified 09/22/17 16:19 codeine AdvReac Nausea Verified 09/22/17 16:19 - Meds/Allergy Pre-op Review Medications Reviewed: Yes Allergies Reviewed: Yes Beta Blockers on Current Med List: No Anesthesia Results - Labs 09/27/17 02:47 09/27/17 02:47 Anesthesia Exam Selected Entries 09/27/17 10:22 Temperature 98.1 F Pulse Rate 84 Respiratory Rate 14 Blood Pressure 135/66 O2 Sat by Pulse Oximetry 93 Oxygen Flow Rate (LPM) 2 Weight: 146kg - HEENT Pupil (Motor): EOMI Mallampati: III Teeth: Edentulous Oral Opening: Greater than 3 - CLINICAL OUTCOMES MANAGER LOC: Oriented CLINICAL OUTCOMES MANAGER Motor: Normal RUE, Normal LUE, Normal RLE, Normal LLE, Normal Face CLINICAL OUTCOMES MANAGER Sensory: Normal: RUE, LUE, RLE, LLE, Face - Cardiac Rhythm: Regular Murmur: None - Pulmonary Breath Sounds: bilateral Clear Respiratory Effort: Symmetrical Anesthesia Assess/Plan ASA Score: 3 Modified [place] Scale for Level of Consciousness: Cooperative, oriented, and tranquil Anesthetic Plan: MAC Monitoring Plan: Standard Monitors Recovery Plan: Other (agrees to MAC)
[2017-09-27] MEDS ORDERED: 0.9 % Sodium Chloride 500 ML IVC SCH (13:00)
[2017-09-27] MEDS ORDERED: Tetracaine/Benzocaine/Butamben 200MG/SPRAY (100SPY/BOT) MM ONE (13:23)
[2017-09-27] MEDS ORDERED: Lidocaine -MPF 2% 2 ML VIAL ONE ×2 (13:32)
[2017-09-27] MEDS ORDERED: *HR* Propofol 200 MG/20 ML VIAL IVP ONE (13:32)
--- NOTE | 2017-09-27 13:35 | Anesthesia Evaluation Post Op ---
Date of Encounter: 09/27/17 Time of Encounter: 13:34 - Vital Signs Vital Signs: 122/60, HR 78, Spo2 98%, RR 16 - Lungs Lungs: Clear Ascult./Percussion - Airway Airway: Non-obstructed - Cardiovascular Regular Rate - Mental Status Mental Status: Alert & Oriented, Answers Appropriately - Pain Pain Scale: 0 Pain Scale used: Numeric (1 - 10) - Nausea Vomiting Nausea Vomiting: Not Present - Hydration Hydration: NPO, Has not voided - Discharge PostOp Status: Transfer Patient to floor
[2017-09-27 14:24] VITALS: BP 148/90
--- NOTE | 2017-09-27 15:50 | Discharge Summary ---
Date of Encounter: 09/27/17 Time of Encounter: 11:00 - Discharge Medications Prescriptions: Ofloxacin *EAR* Drops [Floxin] 10 drop RIGHT EAR HS #1 bottle Home Medications: Albuterol Sulfate [Albuterol Inhaler] 2 puff IH Q4HR PRN 03/16/16 [History] Azelastine 0.1% Nasal [place] [Astelin] 1 spray NS BID 03/16/16 [History] Budesonide/Formoterol 160/4.5 [Symbicort 160/4.5] 2 puff IH BIDR 03/16/16 [ History] Ergocalciferol (VITAMIN D2) [Vitamin D] 400 unit PO DAILY 03/16/16 [History] Esomeprazole Magnesium [Nexium] 40 mg PO BID 03/16/16 [History] Fluticasone Propionate Nasal [Flonase] 2 spray NS DAILY 03/16/16 [History] Ketoconazole Shampoo [Nizoral Shampoo] 1 appl TP 3XW 03/16/16 [History] Psyllium Seed (with Sugar) [Metamucil Powder] 1 each PO HS 03/16/16 [History] Roflumilast [Daliresp] 500 mcg PO DAILY 03/16/16 [History] Sodium Chloride [[place] Saline] 1 spray NS BID PRN 03/16/16 [History] Metoclopramide [Reglan] 10 mg PO BID PRN 11/03/16 [History] Umeclidinium [place] [Incruse Ellipta] 1 puff IH DAILY 11/03/16 [History] Oxygen 3 l .ROUTE AD 11/20/16 [History] Losartan [Cozaar] 25 mg PO DAILY #30 tablet 12/10/16 [Rx] Cetirizine HCl [Zyrtec] 10 mg PO DAILY PRN #0 01/27/17 [Rx] Magnesium Oxide [Mag-Ox] 400 mg PO DAILY #15 tablet 01/27/17 [Rx] Potassium Chloride 20 meq PO DAILY #15 tab.er.prt 01/27/17 [Rx] Metoprolol [Lopressor] 25 mg PO BID 07/05/17 [History] predniSONE [PredniSONE] 5 mg PO DAILY 07/05/17 [History] OxyCODONE/APAP 10/325 [Percocet 10/325 MG] 1 each PO Q8H PRN #14 tablet [Rx] Acetaminophen [Tylenol] 1,000 mg PO BID PRN 09/22/17 [History] Aspirin 81 mg PO DAILY 09/22/17 [History] Clotrimazole 1% CRM [Lotrimin 1%] 1 appl TP BID 09/22/17 [History] Docusate Sodium [Dok] 300 mg PO QAM 09/22/17 [History] Docusate Sodium [Dok] 600 mg PO QPM 09/22/17 [History] Guaifenesin [Mucinex] 400 mg PO Q12H PRN 09/22/17 [History] Ipratropium/Albuterol Neb [Duoneb] 3 ml IH Q4H PRN 09/22/17 [History] Mv-Mn/FA/Vit K/Lycop/Lut/Coq10 [Daily Multivitamin Capsule] 1 tab PO DAILY 09/22 [History] Ondansetron HCl [Zofran] 4 mg PO Q4H PRN 09/22/17 [History] clonazePAM [Klonopin] 0.5 mg PO TID PRN 09/22/17 [History] Furosemide [Lasix] 40 mg PO BID 09/27/17 [History] Ofloxacin *EAR* Drops [Floxin] 10 drop RIGHT EAR HS #1 bottle 09/27/17 [Rx] Allergies/Adverse Reactions: 3 Allergy/AdvReac Type Severity Reaction Status Date / Time morphine Allergy Difficulty Verified 09/22/17 16:19 Breathing sulfamethoxazole Allergy Hives Verified 09/22/17 16:19 [From Bactrim] trimethoprim [From Bactrim] Allergy Hives Verified 09/22/17 16:19 codeine AdvReac Nausea Verified 09/22/17 16:19 Date of admission: 09/22/17 17:39 Primary care physician: Jesus Machuca DO Consults: 09/22/17 19:02 Consult to Pastoral Services [CONS] Routine Comment: Consult to Realty Specialist [CONS] Routine Reason for SW Consult: patient has HH and Home Oxygen 09/22/17 21:08 Consult to Surgery [CONS] Routine Consulting Provider: [facility] Reason for Consult: ED spoke with Dr Jones who has seen patient. I discussed this with Dr Yao per chart review of prior visit. It sounds like Dr Jones will see patient Call Completed: No 09/23/17 15:31 Consult to Gastroenterology [CONS] Routine Consulting Provider: Gastroenterology [place] Reason for Consult: Odynophagia Call Completed: Yes - Patient Status Disposition: Home Health Service Condition: Fair - Discharge Instructions Follow Up With: Jesus Machuca DO [Primary Care Provider] - Hospital course: Patient is a 62 year old male with past medical history significant for cardiomyopathy, COPD, diabetes, hypertension and GERD who presents to the ER on 09/22/17 with shortness of breath and difficulty swallowing. Patient reported of upper respiratory symptoms and was admitted for acute bronchitis addition to odynophagia. Patients hospital stay he was treated for bacterial URI with Levaquin. Addition, GI was consulted for odynophagia with recommendations for EGD which was done on 09/27/17 and showed LA grade a reflux esophagitis with chronic gastritis. Gastroparesis also identified. Recommendations by GI to continue oral PPI. Patient will be discharged to continue PPI and follow up with primary care provider. - Time Spent with Patient Total time spent providing and/or coordinating discharge services: Less than 30 minutes - Constitutional Vitals: Temp Pulse Resp BP Pulse Ox 98.1 F 82 14 148/90 95 09/27/17 14:21 09/27/17 14:21 09/27/17 14:21 09/27/17 14:21 09/27/17 14:21 General appearance: Present: A&O X 3, morbidly obese, pleasant - Respiratory Respiratory exam: Present: CTAB. Absent: accessory muscle use, rales, rhonchi, wheezes - Cardiovascular Cardiovascular exam: Present: RRR, +S1, +S2. Absent: diastolic murmur, gallop, rubs, systolic murmur
--- NOTE | 2017-09-27 15:51 | Physician Discharge Referral ---
Home Health/Hosp Referral Info Transfer to: Home Health - Respiratory Orders Smoking Cessation: Smoking cessation has been advised. For more information, call the [place] Tobacco Quit Line at 8-005-KZEG-NOW. - Transfer Medications Prescriptions: Ofloxacin *EAR* Drops [Floxin] 10 drop RIGHT EAR HS #1 bottle Home Medications: Albuterol Sulfate [Albuterol Inhaler] 2 puff IH Q4HR PRN 03/16/16 [History] Azelastine 0.1% Nasal [place] [Astelin] 1 spray NS BID 03/16/16 [History] Budesonide/Formoterol 160/4.5 [Symbicort 160/4.5] 2 puff IH BIDR 03/16/16 [ History] Ergocalciferol (VITAMIN D2) [Vitamin D] 400 unit PO DAILY 03/16/16 [History] Esomeprazole Magnesium [Nexium] 40 mg PO BID 03/16/16 [History] Fluticasone Propionate Nasal [Flonase] 2 spray NS DAILY 03/16/16 [History] Ketoconazole Shampoo [Nizoral Shampoo] 1 appl TP 3XW 03/16/16 [History] Psyllium Seed (with Sugar) [Metamucil Powder] 1 each PO HS 03/16/16 [History] Roflumilast [Daliresp] 500 mcg PO DAILY 03/16/16 [History] Sodium Chloride [[place] Saline] 1 spray NS BID PRN 03/16/16 [History] Metoclopramide [Reglan] 10 mg PO BID PRN 11/03/16 [History] Umeclidinium [place] [Incruse Ellipta] 1 puff IH DAILY 11/03/16 [History] Oxygen 3 l .ROUTE AD 11/20/16 [History] Losartan [Cozaar] 25 mg PO DAILY #30 tablet 12/10/16 [Rx] Cetirizine HCl [Zyrtec] 10 mg PO DAILY PRN #0 01/27/17 [Rx] Magnesium Oxide [Mag-Ox] 400 mg PO DAILY #15 tablet 01/27/17 [Rx] Potassium Chloride 20 meq PO DAILY #15 tab.er.prt 01/27/17 [Rx] Metoprolol [Lopressor] 25 mg PO BID 07/05/17 [History] predniSONE [PredniSONE] 5 mg PO DAILY 07/05/17 [History] OxyCODONE/APAP 10/325 [Percocet 10/325 MG] 1 each PO Q8H PRN #14 tablet [Rx] Acetaminophen [Tylenol] 1,000 mg PO BID PRN 09/22/17 [History] Aspirin 81 mg PO DAILY 09/22/17 [History] Clotrimazole 1% CRM [Lotrimin 1%] 1 appl TP BID 09/22/17 [History] Docusate Sodium [Dok] 300 mg PO QAM 09/22/17 [History] Docusate Sodium [Dok] 600 mg PO QPM 09/22/17 [History] Guaifenesin [Mucinex] 400 mg PO Q12H PRN 09/22/17 [History] Ipratropium/Albuterol Neb [Duoneb] 3 ml IH Q4H PRN 09/22/17 [History] Mv-Mn/FA/Vit K/Lycop/Lut/Coq10 [Daily Multivitamin Capsule] 1 tab PO DAILY 09/22 [History] Ondansetron HCl [Zofran] 4 mg PO Q4H PRN 09/22/17 [History] clonazePAM [Klonopin] 0.5 mg PO TID PRN 09/22/17 [History] Furosemide [Lasix] 40 mg PO BID 09/27/17 [History] Ofloxacin *EAR* Drops [Floxin] 10 drop RIGHT EAR HS #1 bottle 09/27/17 [Rx] Allergies/Adverse Reactions: 3 Allergy/AdvReac Type Severity Reaction Status Date / Time morphine Allergy Difficulty Verified 09/22/17 16:19 Breathing sulfamethoxazole Allergy Hives Verified 09/22/17 16:19 [From Bactrim] trimethoprim [From Bactrim] Allergy Hives Verified 09/22/17 16:19 codeine AdvReac Nausea Verified 09/22/17 16:19 Certification: Further, I certify that my clinical findings support that this patient is homebound (i.e. absences from home require considerable and taxing effort and are for medical reasons or [facility] or infrequently or short duration when for other reasons) because: Homebound Reason: Leaving home requires considerable and taxing effort due to condition Attestation: My signature below is to certify that this patient is under my care and that I, or nurse practitioner, or a physician's assistant center director working with me, has a face-to -face encounter with this patient.
[2017-09-27] MEDS ORDERED: Ofloxacin *EAR* Drops 5 ML BOTTLE RIGHT EAR SCH (21:00)
== END 2017-09-27 18:01 | disposition home health service (06) | DRG 202 ==
LOC: EMEROO 10:31 → SUATTDRO 17:39 → 2NENU 17:39
PROVIDERS: ADMIT Family Medicine; ATTEND Hospitalist

== ENCOUNTER 2017-12-22 09:48 | Inpatient (IN) ==
[2017-12-22] MEDS ORDERED: Ipratropium/Albuterol Neb 3 ML IH ONE (10:17)
[2017-12-22] MEDS ORDERED: methylPREDNISolone 125 MG/2 ML VIAL IVP ONE (10:17)
--- NOTE | 2017-12-22 10:27 | Emergency Department Note ---
Disposition Clinical Impression: Hypoxemia COPD (chronic obstructive pulmonary disease) Qualifiers: COPD type: COPD with acute exacerbation Qualified Code(s): J44.1 - Chronic obstructive pulmonary disease with (acute) exacerbation Disposition: Admitted As Inpatient Condition: Fair Time of Disposition: 13:32 SOB HPI - General Chief Complaint: ED Shortness of Breath/Dyspnea Stated Complaint: SHUBHAM Source: patient, EMS Nursing Notes Reviewed: Yes Vital Signs Reviewed: Yes - History of Present Illness History of COPD and does use home oxygen and presents with 1 month of increased shortness of breath which is worse for the last 1 or 2 days and is worse with exertion with associated chest heaviness which has been present for 3 days and is constant without radiation however it is worse when he takes a breath. It is worse with exertion. Does have calf muscle pain bilaterally present for the last 1 year which is unchanged. He does have rhinorrhea and a cough productive of yellow and green sputum which does represent a change in sputum color. He did have a temperature elevated 101.8 degrees at home. Does use a breathing treatment without adequate improvement. No antibiotics. Social history: Stopped smoking 10 years ago. - Related Data Home Medications Medication Instructions Recorded Confirmed Albuterol Sulfate [Albuterol 2 puff IH Q4HR PRN 03/16/16 12/22/17 Inhaler] Azelastine 0.1% Nasal [place] 1 spray NS BID 03/16/16 12/22/17 [Astelin] Budesonide/Formoterol 160/4.5 2 puff IH BIDR 03/16/16 12/22/17 [Symbicort 160/4.5] Ergocalciferol (VITAMIN D2) 400 unit PO DAILY 03/16/16 12/22/17 [Vitamin D] Esomeprazole Magnesium [Nexium] 40 mg PO BID 03/16/16 12/22/17 Fluticasone Propionate Nasal 2 spray NS DAILY 03/16/16 12/22/17 [Flonase] Ketoconazole Shampoo [Nizoral 1 appl TP 3XW 03/16/16 12/22/17 Shampoo] Psyllium Seed (with Sugar) 1 each PO HS 03/16/16 12/22/17 [Metamucil Powder] Roflumilast [Daliresp] 500 mcg PO DAILY 03/16/16 12/22/17 Sodium Chloride [[place] Saline] 1 spray NS BID PRN 03/16/16 12/22/17 Metoclopramide [Reglan] 10 mg PO BID PRN 11/03/16 12/22/17 Umeclidinium [place] [Incruse 1 puff IH DAILY 11/03/16 12/22/17 Ellipta] Oxygen 3 l .ROUTE AD 11/20/16 12/22/17 Metoprolol [Lopressor] 25 mg PO BID 07/05/17 12/22/17 predniSONE [PredniSONE] 5 mg PO DAILY 07/05/17 12/22/17 Acetaminophen [Tylenol] 1,000 mg PO BID PRN 09/22/17 12/22/17 Aspirin 81 mg PO DAILY 09/22/17 12/22/17 Clotrimazole 1% CRM [Lotrimin 1%] 1 appl TP BID 09/22/17 12/22/17 Docusate Sodium [Dok] 300 mg PO QAM 09/22/17 12/22/17 Docusate Sodium [Dok] 600 mg PO QPM 09/22/17 12/22/17 Guaifenesin [Mucinex] 400 mg PO Q12H PRN 09/22/17 12/22/17 Ipratropium/Albuterol Neb [Duoneb] 3 ml IH Q4H PRN 09/22/17 12/22/17 Mv-Mn/FA/Vit K/Lycop/Lut/Coq10 1 tab PO DAILY 09/22/17 12/22/17 [Daily Multivitamin Capsule] Ondansetron HCl [Zofran] 4 mg PO Q4H PRN 09/22/17 12/22/17 clonazePAM [Klonopin] 0.5 mg PO TID PRN 09/22/17 12/22/17 Furosemide [Lasix] 40 mg PO BID 09/27/17 12/22/17 predniSONE [PredniSONE] 10 mg PO DAILY 12/22/17 12/22/17 Previous Rx's Medication Instructions Recorded Losartan [Cozaar] 25 mg PO DAILY #30 tablet 12/10/16 Cetirizine HCl [Zyrtec] 10 mg PO DAILY PRN #0 01/27/17 Magnesium Oxide [Mag-Ox] 400 mg PO DAILY #15 tablet 01/27/17 Potassium Chloride 20 meq PO DAILY #15 tab.er.prt 01/27/17 Ofloxacin *EAR* Drops [Floxin] 10 drop RIGHT EAR HS #1 bottle 09/27/17 Allergies Allergy/AdvReac Type Severity Reaction Status Date / Time morphine Allergy Difficulty Verified 12/22/17 10:39 Breathing sulfamethoxazole Allergy Hives Verified 12/22/17 10:39 [From Bactrim] trimethoprim [From Bactrim] Allergy Hives Verified 12/22/17 10:39 codeine AdvReac Nausea Verified 12/22/17 10:39 Review of Systems: Constitutional: + fever Vision: No new blurred vision ENT: + rhinorrhea Respiratory: + cough Allergic: No allergies : No blood in urine GI: No blood in stool Hematologic: No bruising Dermatologic: No skin rash Musculoskeletal: No new pain in the extremities Neuro: No numbness of the extremities Past Medical History - Past Medical History Medical history: Reports: cardiomyopathy, CHF, COPD, diabetes, GERD, hypertension, other Surgical history: Reports: cataract, herniorrhaphy, other Psychiatric history: Reports: anxiety, depression - Social History Smoking Status: Former smoker Smokeless Tobacco Status: No Alcohol use: Reports: rarely Drug use: Reports: none Physical Exam CONSTITUTIONAL: Alert and oriented X3, well-nourished, well appearing, in no apparent distress, he is on 3 L nasal cannula oxygen with a saturation between 89 and 90% HEAD: Normocephalic; atraumatic. EYES: PERRL, no scleral icterus. NOSE: The nose is normal in appearance without rhinorrhea RESP: Normal chest excursion with respiration; breath sounds with bilateral wheezin which is symmetric CARD: Regular rhythm, without murmurs, rub or gallop ABD: Non-distended; non-tender, soft,without rigidity, rebound or guarding SKIN: Normal for age and race; warm and dry; no apparent lesions EXTREMITIES: Pulses are 2 plus and equal times 4 extremities, no peripheral edema or erythema or asymmetry in the lower extremities but there is some minimal symmetric bilateral calf muscle pain. - General General appearance: alert Course Vital Signs Temperature 98.2 F 12/22/17 09:52 Pulse Rate 96 12/22/17 09:52 Respiratory Rate 23 12/22/17 09:52 Blood Pressure 134/75 12/22/17 09:52 O2 Sat by Pulse Oximetry 96 12/22/17 09:52 Temperature 98.2 F 12/22/17 09:52 Pulse Rate 93 12/22/17 11:58 Respiratory Rate 21 12/22/17 11:58 Blood Pressure 134/75 12/22/17 11:58 O2 Sat by Pulse Oximetry 97 12/22/17 11:58 Oxygen Delivery Oxygen Delivery Nasal Cannula Shortness of Breath/Dyspnea - MDM Narrative Medical decision making narrative: Patient's symptoms are concerning and he is hypoxemic and does have a cough productive of colored sputum which is blood-tinged likely from pneumonia exacerbating the COPD and he will likely be admitted. Testing including chest x -ray, labs are pending as well as DuoNeb and IV steroids. Antibiotics pending. 1028 I did review the initial labs showing a white blood cell count elevated at 17, 000. Lactate level is pending, chest x-ray pending, I did review the EKG showing normal sinus rhythm with rate of 88 and without acute ischemic change. 1112 I did speak with the hospitalist accepts the patient for admission and indications are COPD exacerbation with worsening symptoms and hypoxemia. D- dimer is negative and I do not suspect pulmonary embolism unlikely the patient' s blood-streaked sputum is from infectious etiology and from the active coughing. He does have leukocytosis which could be from [place]. Will be admitted for further ongoing breathing treatments, IV steroids and IV antibiotic treatment. 1335 - Lab Data Lab results reviewed: Yes I reviewed the patient's lab results. Result diagrams: 12/22/17 10:30 12/22/17 10:30 Lab Results 12/22/17 12/22/17 12/22/17 Range/Units 10:30 10:30 10:30 WBC (4.3-11.1) K/mcL RBC (4.19-5.50) M/mcL Hgb (12.9-16.9) g/dL Hct (37.5-50.1) % MCV (83.0-100.0) fL MCH (28.0-33.3) pg MCHC (31.6-35.5) g/dL RDW (11.5-14.5) % Plt Count (140-400) K/mcL MPV (9.4-12.4) fL D-Dimer 330 (0-500) ng/mLFEU Sodium 136 (136-145) mEq/L Potassium 4.4 (3.5-5.1) mEq/L Chloride 102 (98-107) mEq/L Carbon Dioxide 26 (23-29) mEq/L BUN 13 (8-23) mg/dL Creatinine 1.00 (0.70-1.30) mg/dL Est GFR ( Amer) > 60 (> 60) Est GFR (Non-Af Amer) > 60 (> 60) BUN/Creatinine Ratio 13 (6-26) Glucose 110 H (70-105) mg/dL Calculated Osmolality 283 (280-300) Lactic Acid 2.4 H (0.5-2.2) mmol/L Calcium 9.5 (8.6-10.3) mg/dL Troponin I < 0.03 (< 0.04) ng/mL 12/22/17 12/22/17 Range/Units 10:30 12:33 WBC 17.2 H (4.3-11.1) K/mcL RBC 4.22 (4.19-5.50) M/mcL Hgb 10.7 L (12.9-16.9) g/dL Hct 34.8 L (37.5-50.1) % MCV 82.5 L (83.0-100.0) fL MCH 25.4 L (28.0-33.3) pg MCHC 30.7 L (31.6-35.5) g/dL RDW 16.2 H (11.5-14.5) % Plt Count 345 (140-400) K/mcL MPV 8.6 L (9.4-12.4) fL D-Dimer (0-500) ng/mLFEU Sodium (136-145) mEq/L Potassium (3.5-5.1) mEq/L Chloride (98-107) mEq/L Carbon Dioxide (23-29) mEq/L BUN (8-23) mg/dL Creatinine (0.70-1.30) mg/dL Est GFR ( Amer) (> 60) Est GFR (Non-Af Amer) (> 60) BUN/Creatinine Ratio (6-26) Glucose (70-105) mg/dL Calculated Osmolality (280-300) Lactic Acid 1.6 (0.5-2.2) mmol/L Calcium (8.6-10.3) mg/dL Troponin I (< 0.04) ng/mL
[2017-12-22 10:39] LABS: Hematocrit 34.8 % (37.5-50.1); Hemoglobin 10.7 g/dL (12.9-16.9); Mean Corpuscular HGB Conc 30.7 g/dL (31.6-35.5); Mean Corpuscular Hemoglobin 25.4 pg (28.0-33.3); Mean Corpuscular Volume 82.5 fL (83.0-100.0); Mean Platelet Volume 8.6 fL (9.4-12.4); Platelet Count 345 K/mcL (140-400); Red Blood Count 4.22 M/mcL (4.19-5.50); Red Cell Distribution Width 16.2 % (11.5-14.5)
[2017-12-22 11:16] LABS: Troponin I < 0.03 ng/mL (< 0.04)
[2017-12-22 11:24] LABS: BUN/Creatinine Ratio 13 (6-26); Blood Urea Nitrogen 13 mg/dL (8-23); Calcium 9.5 mg/dL (8.6-10.3); Carbon Dioxide 26 mEq/L (23-29); Chloride 102 mEq/L (98-107); Glucose 110 mg/dL (70-105); Osmolality,Calculated 283 (280-300); Potassium 4.4 mEq/L (3.5-5.1); Sodium 136 mEq/L (136-145); eGFR For African Americans > 60 (> 60); eGFR For Non-African Americans > 60 (> 60)
[2017-12-22] MEDS ORDERED: Azithromycin 500 MG in D5% in Water 250 ML IVPB ONE (11:58)
[2017-12-22] MEDS ORDERED: cefTRIAXone 2,000 MG in Water for inj. (sterile) 20 ML 20 ML IVPB ONE (11:58)
[2017-12-22] MEDS ORDERED: Naloxone 0.4 MG/ML INJ IVP PRN (13:45)
[2017-12-22] MEDS ORDERED: Benzonatate 100 MG CAPSULE PO PRN (13:47)
[2017-12-22] MEDS ORDERED: GuaiFENesin Liq 200 MG/10 ML UDC PO PRN (13:48)
[2017-12-22] MEDS ORDERED: Loratadine 10 MG TABLET PO PRN (13:48)
--- NOTE | 2017-12-22 13:55 | Internal Med History&Physical ---
Date of Encounter: 12/22/17 Time of Encounter: 13:53 Assessment and Plan (1) Acute on chronic respiratory failure Current visit: Yes Status: Acute Patient is on home oxygen at 2 L/m via nasal cannula due to underlying CHF and COPD. Requiring 3 L/m continuously at rest, monitor and wean down FiO2 as tolerated. Qualifiers: Respiratory failure complication: hypoxia Qualified Code(s): J96.21 - Acute and chronic respiratory failure with hypoxia (2) Acute exacerbation of chronic obstructive airways disease Current visit: Yes Status: Acute Early pneumonia cannot be ruled out. Chest x-ray reviewed independently, no focal infiltrates. Given his history of increase in productive cough, change in color of phlegm, fever at home, will treat with empiric IV antibiotics- Levaquin. Received a dose of azithromycin and Rocephin in the emergency room. Send blood cultures. Continue IV steroids, bronchodilator nebulization, supplemental oxygen, when necessary antitussives and mucolytic's. Hold home dose of oral prednisone at this time. Supportive care. DVT prophylaxis with subcutaneous Lovenox. GI prophylaxis with oral omeprazole. (3) Borderline diabetes Current visit: Yes Status: Chronic Accu-Chek blood glucose monitoring with sliding scale insulin, while inpatient. Check hemoglobin A1c. Likely has secondary diabetes due to chronic steroid use. (4) GERD (gastroesophageal reflux disease) Current visit: Yes Status: Chronic Continue PPI; Qualifiers: Esophagitis presence: esophagitis presence not specified Qualified Code(s) : K21.9 - Gastro-esophageal reflux disease without esophagitis (5) HTN (hypertension) Current visit: Yes Status: Chronic BP currently acceptable; continue home meds; Qualifiers: Hypertension type: essential hypertension Qualified Code(s): I10 - Essential (primary) hypertension (6) Morbid obesity with BMI of 40.0-44.9, adult Current visit: Yes Status: Chronic (7) Lactic acidosis Current visit: Yes Status: Resolved likely due to acute COPD, sepsis less likely; now resolved; (8) CHF (congestive heart failure) Current visit: Yes Status: Chronic continue home meds- diuretics, beta [place]; fluid restriction; Qualifiers: Heart failure type: diastolic Heart failure chronicity: chronic Qualified Code(s): I50.32 - Chronic diastolic (congestive) heart failure Internal Medicine - H&P: HPI Chief complaint: Shortness of breath Admitted From: Emergency Dept Plans for Post Hospital Care: Home History of present illness: Mr. Herring is a 62 year old male with h/o- COPD, presents with c/o- exertional dyspnea for the last 3-4 days. Patient reports having worsening cough, productive with greenish yellow sputum with occasional hemoptysis, associated with fever, chills, chest tightness, generalized weakness. Shortness of breath is worse with exertion. No chest pain, palpitations, dizziness or syncope. He reports having frequent COPD flare-ups, the last one being in Jun 2017. He also had 2 episodes of Flu this season, received Influenza vaccine. He does have a home health services with weekly visiting nurse, who recommended patient to present to the emergency room due to worsening symptoms. Past Med Surg Social Fam HX - Past Medical History Medical history: cardiomyopathy, CHF, COPD, diabetes (Prediabetes), GERD, hypertension, other Psychiatric history: anxiety, depression - Past Surgical History Surgical History: cataract, herniorrhaphy (Ventral hernia repair), other - Social History Smoking Status: Former smoker (Quit smoking about 10 years ago) Smokeless Tobacco Status: No Alcohol use: rarely Drug use: none Occupational status: retired Current living situation: Home - Independent Activity Level: Independent ambulation Recent Out of Country Travel Within the Last 8 Weeks: No Exposure or Possible Exposure to Illness During Travel: No - Family History Father Family Member Ethnicity: Non- Living Status: Hx Family Cardiac Disorders: No Hx Family Respiratory Disorders: No Hx Family Cancer: Yes Hx Family GI Disorders: No Hx Family Endocrine Disorder: Yes Hx Family Neuromuscular Disorders: No Hx Family Neurologic Disorders: No Hx Family HEENT Disorders: No Hx Family Autoimmune Disorders: No Mother Adopted: No Family Member Ethnicity: Non- Living Status: Hx Family Cardiac Disorders: Yes Hx Family Respiratory Disorders: Yes Hx Family Cancer: Yes Hx Family GI Disorders: No Hx Family Endocrine Disorder: No Hx Family Neuromuscular Disorders: No Hx Family Neurologic Disorders: No Hx Family HEENT Disorders: No Hx Family Autoimmune Disorders: No Sister Living Status: Still Living Hx Family Cardiac Disorders: Yes Hx Family Respiratory Disorders: Yes Hx Family Cancer: No Hx Family GI Disorders: No Hx Family Endocrine Disorder: No Hx Family Neuromuscular Disorders: No Hx Family Neurologic Disorders: No Hx Family HEENT Disorders: No Hx Family Autoimmune Disorders: No Internal Medicine - H&P: Meds Albuterol Sulfate [Albuterol Inhaler] 2 puff IH Q4HR PRN 03/16/16 [History] Azelastine 0.1% Nasal [place] [Astelin] 1 spray NS BID 03/16/16 [History] Budesonide/Formoterol 160/4.5 [Symbicort 160/4.5] 2 puff IH BIDR 03/16/16 [ History] Ergocalciferol (VITAMIN D2) [Vitamin D] 400 unit PO DAILY 03/16/16 [History] Esomeprazole Magnesium [Nexium] 40 mg PO BID 03/16/16 [History] Fluticasone Propionate Nasal [Flonase] 2 spray NS DAILY 03/16/16 [History] Ketoconazole Shampoo [Nizoral Shampoo] 1 appl TP 3XW 03/16/16 [History] Psyllium Seed (with Sugar) [Metamucil Powder] 1 each PO HS 03/16/16 [History] Roflumilast [Daliresp] 500 mcg PO DAILY 03/16/16 [History] Sodium Chloride [[place] Saline] 1 spray NS BID PRN 03/16/16 [History] Metoclopramide [Reglan] 10 mg PO BID PRN 11/03/16 [History] Umeclidinium [place] [Incruse Ellipta] 1 puff IH DAILY 11/03/16 [History] Oxygen 3 l .ROUTE AD 11/20/16 [History] Losartan [Cozaar] 25 mg PO DAILY #30 tablet 12/10/16 [Rx] Cetirizine HCl [Zyrtec] 10 mg PO DAILY PRN #0 01/27/17 [Rx] Magnesium Oxide [Mag-Ox] 400 mg PO DAILY #15 tablet 01/27/17 [Rx] Potassium Chloride 20 meq PO DAILY #15 tab.er.prt 01/27/17 [Rx] Metoprolol [Lopressor] 25 mg PO BID 07/05/17 [History] predniSONE [PredniSONE] 5 mg PO DAILY 07/05/17 [History] Acetaminophen [Tylenol] 1,000 mg PO BID PRN 09/22/17 [History] Aspirin 81 mg PO DAILY 09/22/17 [History] Clotrimazole 1% CRM [Lotrimin 1%] 1 appl TP BID 09/22/17 [History] Docusate Sodium [Dok] 300 mg PO QAM 09/22/17 [History] Docusate Sodium [Dok] 600 mg PO QPM 09/22/17 [History] Guaifenesin [Mucinex] 400 mg PO Q12H PRN 09/22/17 [History] Ipratropium/Albuterol Neb [Duoneb] 3 ml IH Q4H PRN 09/22/17 [History] Mv-Mn/FA/Vit K/Lycop/Lut/Coq10 [Daily Multivitamin Capsule] 1 tab PO DAILY 09/22 [History] Ondansetron HCl [Zofran] 4 mg PO Q4H PRN 09/22/17 [History] clonazePAM [Klonopin] 0.5 mg PO TID PRN 09/22/17 [History] Furosemide [Lasix] 40 mg PO BID 09/27/17 [History] Ofloxacin *EAR* Drops [Floxin] 10 drop RIGHT EAR HS #1 bottle 09/27/17 [Rx] predniSONE [PredniSONE] 10 mg PO DAILY 12/22/17 [History] 3 Allergy/AdvReac Type Severity Reaction Status Date / Time morphine Allergy Difficulty Verified 12/22/17 10:39 Breathing sulfamethoxazole Allergy Hives Verified 12/22/17 10:39 [From Bactrim] trimethoprim [From Bactrim] Allergy Hives Verified 12/22/17 10:39 codeine AdvReac Nausea Verified 12/22/17 10:39 All Systems PM: A 10-system review of systems was performed and is negative for pertinent findings except as documented above in the HPI. - Constitutional Constitutional: chills, fever(s), weakness, no night sweats - EENT Eyes: no change in vision, no discharge, no pain, no photophobia Ears: no ear discharge, no ear pain, no tinnitus Nose, mouth and throat: no dysphagia, no nasal discharge, no neck pain, no sore throat - Cardiovascular Cardiovascular ROS IM: no chest pain, no diaphoresis, no dyspnea, no lightheadedness, no palpitations, no syncope - Respiratory Respiratory: cough, dyspnea, hemoptysis, dyspnea on exertion, wheezing, chest congestion, excessive phlegm production, change in phlegm color - Gastrointestinal Gastrointestinal: no abdominal pain, no diarrhea, no hematemesis, no hematochezia, no melena, no nausea, no vomiting - Musculoskeletal Musculoskeletal ROS IM: no numbness, no tingling - Integumentary Integumentary IM: no rash, no unusual bruising - Neurological Neurological ROS: no confusion, no convulsions, no focal weakness, no numbness, no tingling, no tremor(s) - Hematologic/Lymphatic Hematologic/Lymphatic: no easy bruising - Constitutional Vitals: Temp Pulse Resp BP Pulse Ox 98.2 F 87 15 130/73 96 12/22/17 09:52 12/22/17 13:39 12/22/17 13:39 12/22/17 13:39 12/22/17 13:39 General appearance: Present: A&O X 3, morbidly obese, answers questions appropriately - Respiratory Respiratory exam: Present: decreased breath sounds (Bilateral decreased air entry), CTAB, wheezes (mild, intermittent). Absent: accessory muscle use, rales , rhonchi - Cardiovascular Cardiovascular exam: Present: RRR, +S1, +S2. Absent: diastolic murmur, gallop, rubs, systolic murmur - GI/Abdominal GI/Abdominal exam: Present: normal bowel sounds, soft (Obese, nontender), no peritoneal signs. Absent: distended, tenderness - Extremities Exam Extremities exam: Present: pedal edema (Trace dependent), warm, radial pulses palpable and symmetrical. Absent: calf tenderness, cyanotic - Neurological Exam Neurological exam: Present: CN II-XII intact, oriented X3, no focal deficits. Absent: pronater drift, facial droop, speech deficit - Skin Skin exam: Present: dry, intact Internal Med - H&P Results - Labs CBC & Chem 7: 12/22/17 10:30 12/22/17 10:30
[2017-12-22] MEDS: Ipratropium/Albuterol Neb 3 ML IH SCH ×2 (16:00→20:10)
[2017-12-22] MEDS: MethylPREDNISolone 40 MG/ML VIAL IVP SCH (16:41)
[2017-12-22] MEDS: Furosemide 40 MG TABLET PO SCH (20:05)
[2017-12-22] MEDS: Budesonide/Formoterol 160/4.5 MDI IH SCH (20:09)
[2017-12-22] MEDS: clonazePAM 0.5 MG TABLET PO PRN (22:08)
[2017-12-23] MEDS: MethylPREDNISolone 40 MG/ML VIAL IVP SCH ×4 (00:18→23:24)
[2017-12-23] MEDS: Ipratropium/Albuterol Neb 3 ML IH SCH ×7 (00:57→23:58)
[2017-12-23] MEDS: *HR* Enoxaparin 40 MG/0.4 ML SYRINGE SQ SCH (06:28)
[2017-12-23 06:44] LABS: Basophils % 0.2 %; Hematocrit 36.5 % (37.5-50.1); Hemoglobin 11.1 g/dL (12.9-16.9); Immature Granulocytes % 1.5 % (0-4); Lymphocytes # 1.3 K/mcL (0.6-4.6); Lymphocytes % 6.8 %; Mean Corpuscular HGB Conc 30.4 g/dL (31.6-35.5); Mean Corpuscular Hemoglobin 24.8 pg (28.0-33.3); Mean Corpuscular Volume 81.5 fL (83.0-100.0); Mean Platelet Volume 8.9 fL (9.4-12.4); Monocytes # 0.6 K/mcL (0.0-1.3); Monocytes % 3.1 %; Neutrophils # 16.3 K/mcL (1.6-8.9); Platelet Count 416 K/mcL (140-400); Red Blood Count 4.48 M/mcL (4.19-5.50); Red Cell Distribution Width 16.1 % (11.5-14.5); Segmented Neutrophils % 88.4 %
[2017-12-23 07:05] LABS: BUN/Creatinine Ratio 15 (6-26); Blood Urea Nitrogen 16 mg/dL (8-23); Calcium 9.8 mg/dL (8.6-10.3); Carbon Dioxide 22 mEq/L (23-29); Chloride 102 mEq/L (98-107); Glucose 202 mg/dL (70-105); Magnesium 2.2 mg/dL (1.6-2.6); Osmolality,Calculated 295 (280-300); Potassium 4.3 mEq/L (3.5-5.1); Sodium 139 mEq/L (136-145); eGFR For African Americans > 60 (> 60); eGFR For Non-African Americans > 60 (> 60)
[2017-12-23] MEDS: clonazePAM 0.5 MG TABLET PO PRN ×2 (07:14→23:25)
[2017-12-23] MEDS: Budesonide/Formoterol 160/4.5 MDI IH SCH ×2 (07:54→20:31)
[2017-12-23] MEDS ORDERED: (Roflumilast [Daliresp] 500 MCG) PO SCH (09:00)
[2017-12-23] MEDS ORDERED: (Umeclidinium Bromide [Incruse Ellipta] 1 PUFF) IH SCH (09:00)
[2017-12-23] MEDS: Magnesium Oxide 400 MG TABLET PO SCH (09:44)
[2017-12-23] MEDS: Furosemide 40 MG TABLET PO SCH ×2 (09:44→16:03)
[2017-12-23] MEDS: Cholecalciferol (D-3) 1,000 UNIT TABLET PO SCH (09:44)
[2017-12-23] MEDS: Acetaminophen 325 MG TABLET PO PRN (09:45)
[2017-12-23] MEDS: Aspirin 81 MG TAB.CHEW PO SCH (09:45)
[2017-12-23] MEDS: Multivit/Ca/Min/Fe/FA 1 TAB TABLET PO SCH (09:45)
[2017-12-23] MEDS: Levofloxacin 750 MG/150 ML 750 MG/150 ML BAG IVPB SCH (09:45)
[2017-12-23] MEDS ORDERED: *HR* Dextrose 50 % in Water (Syg) 50 ML SYRINGE IVP PRN (14:23)
[2017-12-23] MEDS ORDERED: D5% in Water 1,000 ML IVC PRN (14:23)
[2017-12-23] MEDS ORDERED: Dextrose Gel 15 GM/37.5 ML TUBE PO PRN ×2 (14:23)
[2017-12-23 14:49] LABS: Estimated Average Glucose 157 mg/dl; Hemoglobin A1C 7.1 %
[2017-12-23] MEDS: Fluticasone Propionate Nasal 50 MCG/SPRAY BOTTLE NS SCH ×2 (15:54→20:26)
[2017-12-23] MEDS: Insulin LISPRO 300 UNITS/3 ML VIAL SQ SCH ×2 (16:12→20:30)
--- NOTE | 2017-12-23 18:32 | Internal Med Progress Note ---
Date of Encounter: 12/23/17 Time of Encounter: 11:00 - Assessment and plan (1) Acute exacerbation of chronic obstructive airways disease Current Visit: Yes Status: Acute Assessment and plan: Patient reports improvement in symptoms after starting IV Solu-Medrol, IV Levaquin and dual nebs Continue current management (2) CHF (congestive heart failure) Current Visit: Yes Status: Chronic Assessment and plan: Patient euvolemic; continue home dose of Lasix Qualifiers: Heart failure type: diastolic Heart failure chronicity: chronic Qualified Code(s): I50.32 - Chronic diastolic (congestive) heart failure (3) GERD (gastroesophageal reflux disease) Current Visit: Yes Status: Chronic Assessment and plan: Continue PPI Qualifiers: Esophagitis presence: esophagitis presence not specified Qualified Code(s) : K21.9 - Gastro-esophageal reflux disease without esophagitis (4) HTN (hypertension) Current Visit: Yes Status: Chronic Assessment and plan: Controlled; continue home medications Qualifiers: Hypertension type: essential hypertension Qualified Code(s): I10 - Essential (primary) hypertension (5) Morbid obesity with BMI of 40.0-44.9, adult Current Visit: Yes Status: Chronic Assessment and plan: Lifestyle modifications (6) DVT prophylaxis Current Visit: No Status: Acute Assessment and plan: Subcutaneous Lovenox - Subjective Interval history: Patient reports symptoms of shortness of breath have improved after starting IV antibiotics and IV steroids - Constitutional Vitals: Temp Pulse Resp BP Pulse Ox 98.0 F 84 16 146/77 95 12/23/17 15:09 12/23/17 15:09 12/23/17 16:11 12/23/17 15:09 12/23/17 16:11 General appearance: Present: A&O X 3, morbidly obese, answers questions appropriately - Respiratory Respiratory exam: Present: CTAB. Absent: accessory muscle use, rales, rhonchi, wheezes - Cardiovascular Cardiovascular exam: Present: RRR, +S1, +S2. Absent: diastolic murmur, gallop, rubs, systolic murmur Internal Medicine: Result - Labs CBC & Chem 7: 12/23/17 06:15 12/23/17 06:15 Labs: Short CBC 12/23/17 Range/Units 06:15 WBC 18.4 H (4.3-11.1) K/mcL Hgb 11.1 L (12.9-16.9) g/dL Hct 36.5 L (37.5-50.1) % Plt Count 416 H (140-400) K/mcL Neutrophils # 16.3 H (1.6-8.9) K/mcL BMP 12/23/17 06:15 Sodium 139 Potassium 4.3 Chloride 102 Carbon Dioxide 22 L BUN 16 Creatinine 1.06 Glucose 202 H Calcium 9.8 - ABG Interpretation ABG results: PT/INR, D-dimer D-Dimer 330 ng/mLFEU (0-500) 12/22/17 10:30 Consult Discharge Plan - Plan Referrals: Jesus Machuca DO [Primary Care Provider] - 01/03/18 12:45 pm
[2017-12-23] MEDS: Psyllium 1 PACKET POWD.PACK PO SCH (20:26)
[2017-12-23] MEDS: traMADol 50 MG TABLET PO PRN (20:45)
[2017-12-24] MEDS: Ipratropium/Albuterol Neb 3 ML IH SCH ×6 (03:47→23:16)
[2017-12-24] MEDS: *HR* Enoxaparin 40 MG/0.4 ML SYRINGE SQ SCH (04:18)
[2017-12-24] MEDS ORDERED: methylPREDNISolone 125 MG/2 ML VIAL IVP ONE (04:32)
[2017-12-24 04:57] LABS: ABG Base Excess 4 mEq/L (-2 to 3); ABG HCO3 29 mEq/L (21-27); ABG Oxygen Saturation 99 % (95-98); ABG PCO2 45 mmHg (35-45); ABG PH 7.42 pH Units (7.32-7.45); ABG PO2 124 mmHg (85-104); ABG TCO2 30 mEq/L (20-26)
[2017-12-24] MEDS: Budesonide/Formoterol 160/4.5 MDI IH SCH ×2 (07:22→19:44)
[2017-12-24] MEDS: Insulin LISPRO 300 UNITS/3 ML VIAL SQ SCH ×4 (09:00→19:55)
[2017-12-24] MEDS: Fluticasone Propionate Nasal 50 MCG/SPRAY BOTTLE NS SCH (09:00)
[2017-12-24] MEDS: MethylPREDNISolone 40 MG/ML VIAL IVP SCH ×3 (10:09→23:39)
[2017-12-24] MEDS: Aspirin 81 MG TAB.CHEW PO SCH (10:09)
[2017-12-24] MEDS: Furosemide 40 MG TABLET PO SCH ×2 (10:09→16:42)
[2017-12-24] MEDS: Multivit/Ca/Min/Fe/FA 1 TAB TABLET PO SCH (10:09)
[2017-12-24] MEDS: Cholecalciferol (D-3) 1,000 UNIT TABLET PO SCH (10:09)
[2017-12-24] MEDS: Magnesium Oxide 400 MG TABLET PO SCH (10:10)
[2017-12-24] MEDS: Levofloxacin 750 MG/150 ML 750 MG/150 ML BAG IVPB SCH (10:10)
[2017-12-24 10:13] LABS: Basophils % 0.2 %; Hematocrit 35.9 % (37.5-50.1); Immature Granulocytes % 2.2 % (0-4); Lymphocytes # 0.7 K/mcL (0.6-4.6); Lymphocytes % 4.1 %; Mean Corpuscular HGB Conc 30.6 g/dL (31.6-35.5); Mean Corpuscular Hemoglobin 25.2 pg (28.0-33.3); Mean Corpuscular Volume 82.2 fL (83.0-100.0); Mean Platelet Volume 8.9 fL (9.4-12.4); Monocytes # 0.4 K/mcL (0.0-1.3); Monocytes % 2.1 %; Neutrophils # 15.4 K/mcL (1.6-8.9); Platelet Count 378 K/mcL (140-400); Red Blood Count 4.37 M/mcL (4.19-5.50); Red Cell Distribution Width 15.9 % (11.5-14.5); Segmented Neutrophils % 91.4 %
[2017-12-24] MEDS: traMADol 50 MG TABLET PO PRN (10:22)
[2017-12-24] MEDS: clonazePAM 0.5 MG TABLET PO PRN ×3 (10:25→21:00)
[2017-12-24 10:27] LABS: BUN/Creatinine Ratio 23 (6-26); Blood Urea Nitrogen 24 mg/dL (8-23); Calcium 9.7 mg/dL (8.6-10.3); Carbon Dioxide 24 mEq/L (23-29); Chloride 101 mEq/L (98-107); Glucose 237 mg/dL (70-105); Osmolality,Calculated 294 (280-300); Potassium 4.3 mEq/L (3.5-5.1); Sodium 136 mEq/L (136-145); eGFR For African Americans > 60 (> 60); eGFR For Non-African Americans > 60 (> 60)
--- NOTE | 2017-12-24 18:17 | Internal Med Progress Note ---
Date of Encounter: 12/24/17 Time of Encounter: 11:00 - Assessment and plan (1) Acute exacerbation of chronic obstructive airways disease Current Visit: Yes Status: Acute Assessment and plan: Patient reports of having shortness of breath this morning without any improvement since admission Will continue IV Solu-Medrol, IV Levaquin and dual nebs (2) CHF (congestive heart failure) Current Visit: Yes Status: Chronic Assessment and plan: Patient euvolemic; continue home dose of Lasix Qualifiers: Heart failure type: diastolic Heart failure chronicity: chronic Qualified Code(s): I50.32 - Chronic diastolic (congestive) heart failure (3) GERD (gastroesophageal reflux disease) Current Visit: Yes Status: Chronic Assessment and plan: Continue PPI Qualifiers: Esophagitis presence: esophagitis presence not specified Qualified Code(s) : K21.9 - Gastro-esophageal reflux disease without esophagitis (4) HTN (hypertension) Current Visit: Yes Status: Chronic Assessment and plan: Controlled; continue home medications Qualifiers: Hypertension type: essential hypertension Qualified Code(s): I10 - Essential (primary) hypertension (5) Morbid obesity with BMI of 40.0-44.9, adult Current Visit: Yes Status: Chronic Assessment and plan: Lifestyle modifications (6) DVT prophylaxis Current Visit: No Status: Acute Assessment and plan: Subcutaneous Lovenox - Subjective Interval history: Patient reports of shortness of breath this morning - Constitutional Vitals: Temp Pulse Resp BP Pulse Ox 98.8 F 96 18 159/73 96 12/24/17 08:55 12/24/17 08:55 12/24/17 15:56 12/24/17 11:35 12/24/17 15:56 General appearance: Present: A&O X 3, morbidly obese, answers questions appropriately - Respiratory Respiratory exam: Present: CTAB. Absent: accessory muscle use, rales, rhonchi, wheezes - Cardiovascular Cardiovascular exam: Present: RRR, +S1, +S2. Absent: diastolic murmur, gallop, rubs, systolic murmur Internal Medicine: Result - Labs CBC & Chem 7: 12/24/17 09:29 12/24/17 09:29 Labs: Short CBC 12/24/17 Range/Units 09:29 WBC 16.9 H (4.3-11.1) K/mcL Hgb 11.0 L (12.9-16.9) g/dL Hct 35.9 L (37.5-50.1) % Plt Count 378 (140-400) K/mcL Neutrophils # 15.4 H (1.6-8.9) K/mcL BMP 12/24/17 09:29 Sodium 136 Potassium 4.3 Chloride 101 Carbon Dioxide 24 BUN 24 H Creatinine 1.03 Glucose 237 H Calcium 9.7 - ABG Interpretation ABG results: ABG ABG pH 7.42 pH Units (7.32-7.45) 12/24/17 04:54 ABG pCO2 45 mmHg (35-45) 12/24/17 04:54 ABG pO2 124 mmHg (85-104) H 12/24/17 04:54 ABG O2 Saturation 99 % (95-98) H 12/24/17 04:54 PT/INR, D-dimer D-Dimer 330 ng/mLFEU (0-500) 12/22/17 10:30 Consult Discharge Plan - Plan Referrals: Jesus Machuca DO [Primary Care Provider] - 01/03/18 12:45 pm
[2017-12-24 19:15] LABS: Basophils % 0.2 %; Hematocrit 36.3 % (37.5-50.1); Hemoglobin 11.3 g/dL (12.9-16.9); Immature Granulocytes % 1.7 % (0-4); Lymphocytes # 0.9 K/mcL (0.6-4.6); Mean Corpuscular HGB Conc 31.1 g/dL (31.6-35.5); Mean Corpuscular Hemoglobin 25.6 pg (28.0-33.3); Mean Corpuscular Volume 82.3 fL (83.0-100.0); Mean Platelet Volume 8.7 fL (9.4-12.4); Monocytes # 0.9 K/mcL (0.0-1.3); Monocytes % 4.7 %; Neutrophils # 16.5 K/mcL (1.6-8.9); Platelet Count 439 K/mcL (140-400); Red Blood Count 4.41 M/mcL (4.19-5.50); Segmented Neutrophils % 88.4 %
[2017-12-24 19:36] LABS: BUN/Creatinine Ratio 20 (6-26); Blood Urea Nitrogen 25 mg/dL (8-23); Calcium 9.6 mg/dL (8.6-10.3); Carbon Dioxide 24 mEq/L (23-29); Chloride 99 mEq/L (98-107); Glucose 155 mg/dL (70-105); Osmolality,Calculated 290 (280-300); Sodium 136 mEq/L (136-145); eGFR For African Americans > 60 (> 60); eGFR For Non-African Americans 60 (> 60)
[2017-12-24] MEDS: Psyllium 1 PACKET POWD.PACK PO SCH (21:01)
[2017-12-25] MEDS: Ipratropium/Albuterol Neb 3 ML IH SCH ×6 (04:17→23:05)
[2017-12-25] MEDS: *HR* Enoxaparin 40 MG/0.4 ML SYRINGE SQ SCH (05:58)
[2017-12-25] MEDS: clonazePAM 0.5 MG TABLET PO PRN ×3 (07:19→22:14)
[2017-12-25] MEDS: Budesonide/Formoterol 160/4.5 MDI IH SCH ×2 (07:25→20:17)
[2017-12-25] MEDS: MethylPREDNISolone 40 MG/ML VIAL IVP SCH ×2 (08:55→16:07)
[2017-12-25] MEDS: Multivit/Ca/Min/Fe/FA 1 TAB TABLET PO SCH (08:55)
[2017-12-25] MEDS: Cholecalciferol (D-3) 1,000 UNIT TABLET PO SCH (08:55)
[2017-12-25] MEDS: Insulin LISPRO 300 UNITS/3 ML VIAL SQ SCH ×4 (08:55→22:18)
[2017-12-25] MEDS: Furosemide 40 MG TABLET PO SCH ×2 (08:55→16:07)
[2017-12-25] MEDS: Aspirin 81 MG TAB.CHEW PO SCH (08:56)
[2017-12-25] MEDS: Magnesium Oxide 400 MG TABLET PO SCH (08:56)
[2017-12-25] MEDS: Levofloxacin 750 MG/150 ML 750 MG/150 ML BAG IVPB SCH (08:56)
[2017-12-25] MEDS: Fluticasone Propionate Nasal 50 MCG/SPRAY BOTTLE NS SCH (08:56)
[2017-12-25 10:01] LABS: Basophils % 0.2 %; Hematocrit 37.3 % (37.5-50.1); Hemoglobin 11.4 g/dL (12.9-16.9); Immature Granulocytes % 1.7 % (0-4); Lymphocytes # 1.5 K/mcL (0.6-4.6); Lymphocytes % 8.9 %; Mean Corpuscular HGB Conc 30.6 g/dL (31.6-35.5); Mean Corpuscular Hemoglobin 25.3 pg (28.0-33.3); Mean Corpuscular Volume 82.7 fL (83.0-100.0); Mean Platelet Volume 8.8 fL (9.4-12.4); Monocytes # 1.2 K/mcL (0.0-1.3); Monocytes % 6.9 %; Neutrophils # 14.2 K/mcL (1.6-8.9); Platelet Count 416 K/mcL (140-400); Red Blood Count 4.51 M/mcL (4.19-5.50); Segmented Neutrophils % 82.3 %
[2017-12-25 10:32] LABS: BUN/Creatinine Ratio 25 (6-26); Blood Urea Nitrogen 27 mg/dL (8-23); Calcium 9.7 mg/dL (8.6-10.3); Carbon Dioxide 27 mEq/L (23-29); Chloride 100 mEq/L (98-107); Glucose 151 mg/dL (70-105); Osmolality,Calculated 292 (280-300); Potassium 4.3 mEq/L (3.5-5.1); Sodium 137 mEq/L (136-145); eGFR For African Americans > 60 (> 60); eGFR For Non-African Americans > 60 (> 60)
[2017-12-25] MEDS: Acetaminophen 325 MG TABLET PO PRN (16:07)
--- NOTE | 2017-12-25 17:34 | Internal Med Progress Note ---
Date of Encounter: 12/25/17 Time of Encounter: 11:00 - Assessment and plan (1) Acute exacerbation of chronic obstructive airways disease Current Visit: Yes Status: Acute Assessment and plan: Patient reports of having shortness of breath this morning without any improvement since admission Suspect secondary to anxiety Will continue IV Solu-Medrol, IV Levaquin and dual nebs (2) Anxiety Current Visit: No Status: Chronic Assessment and plan: Suspect patient anxiety not controlled therefore feeling short of breath Continue patient's home dose of clonazepam (3) CHF (congestive heart failure) Current Visit: Yes Status: Chronic Assessment and plan: Patient euvolemic; continue home dose of Lasix Qualifiers: Heart failure type: diastolic Heart failure chronicity: chronic Qualified Code(s): I50.32 - Chronic diastolic (congestive) heart failure (4) GERD (gastroesophageal reflux disease) Current Visit: Yes Status: Chronic Assessment and plan: Continue PPI Qualifiers: Esophagitis presence: esophagitis presence not specified Qualified Code(s) : K21.9 - Gastro-esophageal reflux disease without esophagitis (5) HTN (hypertension) Current Visit: Yes Status: Chronic Assessment and plan: Controlled; continue home medications Qualifiers: Hypertension type: essential hypertension Qualified Code(s): I10 - Essential (primary) hypertension (6) Morbid obesity with BMI of 40.0-44.9, adult Current Visit: Yes Status: Chronic Assessment and plan: Lifestyle modifications (7) DVT prophylaxis Current Visit: No Status: Acute Assessment and plan: Subcutaneous Lovenox - Subjective Interval history: Patient still reports of shortness of breath this morning - Constitutional Vitals: Temp Pulse Resp BP Pulse Ox 98.5 F 93 16 134/73 94 12/25/17 15:32 12/25/17 15:32 12/25/17 15:32 12/25/17 15:32 12/25/17 15:32 General appearance: Present: A&O X 3, morbidly obese, answers questions appropriately - Respiratory Respiratory exam: Present: CTAB. Absent: accessory muscle use, rales, rhonchi, wheezes - Cardiovascular Cardiovascular exam: Present: RRR, +S1, +S2. Absent: diastolic murmur, gallop, rubs, systolic murmur - Psychiatric Psychiatric exam: Present: anxious (Suspect patient has panic attacks which makes him feel short of breath) Internal Medicine: Result - Labs CBC & Chem 7: 03/18/18 09:20 12/25/17 09:20 Labs: Short CBC 12/24/17 12/25/17 Range/Units 19:03 09:20 WBC 18.7 H 17.3 H (4.3-11.1) K/mcL Hgb 11.3 L 11.4 L (12.9-16.9) g/dL Hct 36.3 L 37.3 L (37.5-50.1) % Plt Count 439 H 416 H (140-400) K/mcL Neutrophils # 16.5 H 14.2 H (1.6-8.9) K/mcL BMP 12/24/17 12/25/17 19:03 09:20 Sodium 136 137 Potassium 4.0 4.3 Chloride 99 100 Carbon Dioxide 24 27 BUN 25 H 27 H Creatinine 1.22 1.07 Glucose 155 H 151 H Calcium 9.6 9.7 - ABG Interpretation ABG results: ABG ABG pH 7.42 pH Units (7.32-7.45) 12/24/17 04:54 ABG pCO2 45 mmHg (35-45) 12/24/17 04:54 ABG pO2 124 mmHg (85-104) H 12/24/17 04:54 ABG O2 Saturation 99 % (95-98) H 12/24/17 04:54 PT/INR, D-dimer D-Dimer 330 ng/mLFEU (0-500) 12/22/17 10:30 - VTE Documentation of Mechanical Device: Intermittent pneumatic compression device Consult Discharge Plan - Plan Referrals: Jesus Machuca DO [Primary Care Provider] - 01/03/18 12:45 pm
[2017-12-25] MEDS: Psyllium 1 PACKET POWD.PACK PO SCH (22:15)
[2017-12-26] MEDS: MethylPREDNISolone 40 MG/ML VIAL IVP SCH ×2 (00:14→07:56)
[2017-12-26] MEDS: Ipratropium/Albuterol Neb 3 ML IH SCH ×3 (04:40→11:43)
[2017-12-26] MEDS: *HR* Enoxaparin 40 MG/0.4 ML SYRINGE SQ SCH (05:52)
[2017-12-26 07:04] VITALS: BP 142/66
[2017-12-26] MEDS: Budesonide/Formoterol 160/4.5 MDI IH SCH (07:39)
[2017-12-26] MEDS: Magnesium Oxide 400 MG TABLET PO SCH (07:56)
[2017-12-26] MEDS: Furosemide 40 MG TABLET PO SCH (07:56)
[2017-12-26] MEDS: Cholecalciferol (D-3) 1,000 UNIT TABLET PO SCH (07:56)
[2017-12-26] MEDS: Aspirin 81 MG TAB.CHEW PO SCH (07:56)
[2017-12-26] MEDS: Multivit/Ca/Min/Fe/FA 1 TAB TABLET PO SCH (07:56)
[2017-12-26] MEDS: clonazePAM 0.5 MG TABLET PO PRN (07:56)
[2017-12-26] MEDS: Insulin LISPRO 300 UNITS/3 ML VIAL SQ SCH ×2 (07:57→11:43)
[2017-12-26] MEDS: Acetaminophen 325 MG TABLET PO PRN (08:04)
[2017-12-26] MEDS: Fluticasone Propionate Nasal 50 MCG/SPRAY BOTTLE NS SCH (08:11)
[2017-12-26] MEDS: Levofloxacin 750 MG/150 ML 750 MG/150 ML BAG IVPB SCH (08:12)
[2017-12-26 09:39] LABS: Basophils % 0.3 %; Hematocrit 36.6 % (37.5-50.1); Hemoglobin 11.4 g/dL (12.9-16.9); Lymphocytes % 6.8 %; Mean Corpuscular HGB Conc 31.1 g/dL (31.6-35.5); Mean Corpuscular Hemoglobin 25.6 pg (28.0-33.3); Mean Corpuscular Volume 82.1 fL (83.0-100.0); Mean Platelet Volume 8.7 fL (9.4-12.4); Monocytes # 0.9 K/mcL (0.0-1.3); Monocytes % 5.8 %; Neutrophils # 12.7 K/mcL (1.6-8.9); Platelet Count 368 K/mcL (140-400); Red Blood Count 4.46 M/mcL (4.19-5.50); Red Cell Distribution Width 15.9 % (11.5-14.5); Segmented Neutrophils % 85.1 %
[2017-12-26 10:01] LABS: BUN/Creatinine Ratio 29 (6-26); Blood Urea Nitrogen 30 mg/dL (8-23); Calcium 9.4 mg/dL (8.6-10.3); Carbon Dioxide 27 mEq/L (23-29); Chloride 99 mEq/L (98-107); Glucose 240 mg/dL (70-105); Osmolality,Calculated 292 (280-300); Potassium 4.6 mEq/L (3.5-5.1); Sodium 134 mEq/L (136-145); eGFR For African Americans > 60 (> 60); eGFR For Non-African Americans > 60 (> 60)
--- NOTE | 2017-12-26 16:36 | Physician Discharge Referral ---
Home Health/Hosp Referral Info Transfer to: Home Health - Diagnosis (1) Acute exacerbation of chronic obstructive airways disease Priority: Primary Status: Acute (2) Anxiety Priority: Primary Status: Chronic (3) CHF (congestive heart failure) Priority: Secondary Status: Chronic (4) GERD (gastroesophageal reflux disease) Priority: Secondary Status: Chronic (5) HTN (hypertension) Priority: Secondary Status: Chronic (6) Morbid obesity with BMI of 40.0-44.9, adult Priority: Secondary Status: Chronic - Respiratory Orders Smoking Cessation: Smoking cessation has been advised. For more information, call the [place] Tobacco Quit Line at 7-660-BMPWNOW. - Services Needed Following services are medically necessary services: Nursing, Home Health Aide - Transfer Medications Prescriptions: Levofloxacin [Levaquin] 500 mg PO DAILY 3 Days #3 tablet Home Medications: Albuterol Sulfate [Albuterol Inhaler] 2 puff IH Q4HR PRN 03/16/16 [History] Azelastine 0.1% Nasal [place] [Astelin] 1 spray NS BID 03/16/16 [History] Budesonide/Formoterol 160/4.5 [Symbicort 160/4.5] 2 puff IH BIDR 03/16/16 [ History] Ergocalciferol (VITAMIN D2) [Vitamin D] 400 unit PO DAILY 03/16/16 [History] Esomeprazole Magnesium [Nexium] 40 mg PO BID 03/16/16 [History] Fluticasone Propionate Nasal [Flonase] 2 spray NS DAILY 03/16/16 [History] Ketoconazole Shampoo [Nizoral Shampoo] 1 appl TP 3XW 03/16/16 [History] Psyllium Seed (with Sugar) [Metamucil Powder] 1 each PO HS 03/16/16 [History] Roflumilast [Daliresp] 500 mcg PO DAILY 03/16/16 [History] Sodium Chloride [[place] Saline] 1 spray NS BID PRN 03/16/16 [History] Metoclopramide [Reglan] 10 mg PO BID PRN 11/03/16 [History] Umeclidinium [place] [Incruse Ellipta] 1 puff IH DAILY 11/03/16 [History] Oxygen 3 l .ROUTE AD 11/20/16 [History] Losartan [Cozaar] 25 mg PO DAILY #30 tablet 12/10/16 [Rx] Cetirizine HCl [Zyrtec] 10 mg PO DAILY PRN #0 01/27/17 [Rx] Magnesium Oxide [Mag-Ox] 400 mg PO DAILY #15 tablet 01/27/17 [Rx] Potassium Chloride 20 meq PO DAILY #15 tab.er.prt 01/27/17 [Rx] Metoprolol [Lopressor] 25 mg PO BID 07/05/17 [History] predniSONE [PredniSONE] 5 mg PO DAILY 07/05/17 [History] Acetaminophen [Tylenol] 1,000 mg PO BID PRN 09/22/17 [History] Aspirin 81 mg PO DAILY 09/22/17 [History] Clotrimazole 1% CRM [Lotrimin 1%] 1 appl TP BID 09/22/17 [History] Docusate Sodium [Dok] 300 mg PO QAM 09/22/17 [History] Docusate Sodium [Dok] 600 mg PO QPM 09/22/17 [History] Guaifenesin [Mucinex] 400 mg PO Q12H PRN 09/22/17 [History] Ipratropium/Albuterol Neb [Duoneb] 3 ml IH Q4H PRN 09/22/17 [History] Mv-Mn/FA/Vit K/Lycop/Lut/Coq10 [Daily Multivitamin Capsule] 1 tab PO DAILY 09/22 [History] Ondansetron HCl [Zofran] 4 mg PO Q4H PRN 09/22/17 [History] clonazePAM [Klonopin] 0.5 mg PO TID PRN 09/22/17 [History] Furosemide [Lasix] 40 mg PO BID 09/27/17 [History] Ofloxacin *EAR* Drops [Floxin] 10 drop RIGHT EAR HS #1 bottle 09/27/17 [Rx] predniSONE [PredniSONE] 10 mg PO DAILY 12/22/17 [History] Levofloxacin [Levaquin] 500 mg PO DAILY 3 Days #3 tablet 12/26/17 [Rx] Allergies/Adverse Reactions: 3 Allergy/AdvReac Type Severity Reaction Status Date / Time morphine Allergy Difficulty Verified 12/22/17 10:39 Breathing sulfamethoxazole Allergy Hives Verified 12/22/17 10:39 [From Bactrim] trimethoprim [From Bactrim] Allergy Hives Verified 12/22/17 10:39 codeine AdvReac Nausea Verified 12/22/17 10:39 Certification: Further, I certify that my clinical findings support that this patient is homebound (i.e. absences from home require considerable and taxing effort and are for medical reasons or advent services or infrequently or short duration when for other reasons) because: Homebound Reason: Patient requires assistance of a person or device to safely leave home Attestation: My signature below is to certify that this patient is under my care and that I, or nurse practitioner, or a physician's assistant manager trainee working with me, has a face-to -face encounter with this patient.
--- NOTE | 2017-12-26 19:20 | Discharge Summary ---
- NOTES TO OUTPATIENT PROVIDER Notes to Outpatient Provider: Follow-up with pulmonology Date of Encounter: 12/26/17 Time of Encounter: 11:00 - Discharge Diagnosis (1) Acute exacerbation of chronic obstructive airways disease Priority: Primary Status: Acute (2) Anxiety Priority: Primary Status: Chronic (3) CHF (congestive heart failure) Priority: Secondary Status: Chronic Qualifiers: Heart failure type: diastolic Heart failure chronicity: chronic Qualified Code(s): I50.32 - Chronic diastolic (congestive) heart failure (4) GERD (gastroesophageal reflux disease) Priority: Secondary Status: Chronic Qualifiers: Esophagitis presence: esophagitis presence not specified Qualified Code(s) : K21.9 - Gastro-esophageal reflux disease without esophagitis (5) HTN (hypertension) Priority: Secondary Status: Chronic Qualifiers: Hypertension type: essential hypertension Qualified Code(s): I10 - Essential (primary) hypertension (6) Morbid obesity with BMI of 40.0-44.9, adult Priority: Secondary Status: Chronic Hospital course: Patient is a 62-year-old male with past medical history significant for COPD who presents to the ER on 12/22/17 due to shortness of breath. Patient reports having worsening cough, productive with greenish yellow sputum with occasional hemoptysis, associated with fever, chills, chest tightness, generalized weakness. Shortness of breath is worse with exertion. Patient has had frequent COPD flare-ups, the last one being in Jun 2017. During patients hospital stay his symptoms improved with treatment of IV Solu- Medrol and IV Levaquin in addition to dual nebs. Patient will be discharged to follow-up with pulmonology as outpatient. - Time Spent with Patient Total time spent providing and/or coordinating discharge services: Less than 30 minutes - Discharge Medications Prescriptions: Levofloxacin [Levaquin] 500 mg PO DAILY 3 Days #3 tablet Home Medications: Albuterol Sulfate [Albuterol Inhaler] 2 puff IH Q4HR PRN 03/16/16 [History] Azelastine 0.1% Nasal [place] [Astelin] 1 spray NS BID 03/16/16 [History] Budesonide/Formoterol 160/4.5 [Symbicort 160/4.5] 2 puff IH BIDR 03/16/16 [ History] Ergocalciferol (VITAMIN D2) [Vitamin D] 400 unit PO DAILY 03/16/16 [History] Esomeprazole Magnesium [Nexium] 40 mg PO BID 03/16/16 [History] Fluticasone Propionate Nasal [Flonase] 2 spray NS DAILY 03/16/16 [History] Ketoconazole Shampoo [Nizoral Shampoo] 1 appl TP 3XW 03/16/16 [History] Psyllium Seed (with Sugar) [Metamucil Powder] 1 each PO HS 03/16/16 [History] Roflumilast [Daliresp] 500 mcg PO DAILY 03/16/16 [History] Sodium Chloride [[place] Saline] 1 spray NS BID PRN 03/16/16 [History] Metoclopramide [Reglan] 10 mg PO BID PRN 11/03/16 [History] Umeclidinium [place] [Incruse Ellipta] 1 puff IH DAILY 11/03/16 [History] Oxygen 3 l .ROUTE AD 11/20/16 [History] Losartan [Cozaar] 25 mg PO DAILY #30 tablet 12/10/16 [Rx] Cetirizine HCl [Zyrtec] 10 mg PO DAILY PRN #0 01/27/17 [Rx] Magnesium Oxide [Mag-Ox] 400 mg PO DAILY #15 tablet 01/27/17 [Rx] Potassium Chloride 20 meq PO DAILY #15 tab.er.prt 01/27/17 [Rx] Metoprolol [Lopressor] 25 mg PO BID 07/05/17 [History] predniSONE [PredniSONE] 5 mg PO DAILY 07/05/17 [History] Acetaminophen [Tylenol] 1,000 mg PO BID PRN 09/22/17 [History] Aspirin 81 mg PO DAILY 09/22/17 [History] Clotrimazole 1% CRM [Lotrimin 1%] 1 appl TP BID 09/22/17 [History] Docusate Sodium [Dok] 300 mg PO QAM 09/22/17 [History] Docusate Sodium [Dok] 600 mg PO QPM 09/22/17 [History] Guaifenesin [Mucinex] 400 mg PO Q12H PRN 09/22/17 [History] Ipratropium/Albuterol Neb [Duoneb] 3 ml IH Q4H PRN 09/22/17 [History] Mv-Mn/FA/Vit K/Lycop/Lut/Coq10 [Daily Multivitamin Capsule] 1 tab PO DAILY 09/22 [History] Ondansetron HCl [Zofran] 4 mg PO Q4H PRN 09/22/17 [History] clonazePAM [Klonopin] 0.5 mg PO TID PRN 09/22/17 [History] Furosemide [Lasix] 40 mg PO BID 09/27/17 [History] Ofloxacin *EAR* Drops [Floxin] 10 drop RIGHT EAR HS #1 bottle 09/27/17 [Rx] predniSONE [PredniSONE] 10 mg PO DAILY 12/22/17 [History] Levofloxacin [Levaquin] 500 mg PO DAILY 3 Days #3 tablet 12/26/17 [Rx] Allergies/Adverse Reactions: 3 Allergy/AdvReac Type Severity Reaction Status Date / Time morphine Allergy Difficulty Verified 12/22/17 10:39 Breathing sulfamethoxazole Allergy Hives Verified 12/22/17 10:39 [From Bactrim] trimethoprim [From Bactrim] Allergy Hives Verified 12/22/17 10:39 codeine AdvReac Nausea Verified 12/22/17 10:39 Date of admission: 12/22/17 14:02 Primary care physician: Jesus Machuca DO Consults: 12/23/17 08:49 Consult to Nurse Navigator [CONS] Routine Comment: CHF education - Constitutional Vitals: Temp Pulse Resp BP Pulse Ox 98.2 F 71 16 142/66 99 12/26/17 06:53 12/26/17 06:53 12/26/17 07:44 12/26/17 06:53 12/26/17 07:44 General appearance: Present: A&O X 3, morbidly obese, answers questions appropriately - Respiratory Respiratory exam: Present: CTAB. Absent: accessory muscle use, rales, rhonchi, wheezes - Cardiovascular Cardiovascular exam: Present: RRR, +S1, +S2. Absent: diastolic murmur, gallop, rubs, systolic murmur - Patient Status Disposition: Home Health Service Condition: Fair - Discharge Instructions Instructions: Dyspnea (GEN) Follow Up With: Jesus Machuca DO [Primary Care Provider] - 01/03/18 12:45 pm - VTE Documentation of Mechanical Device: Intermittent pneumatic compression device
--- NOTE | 2017-12-27 20:54 | Electrocardiograph Report ---
[place] [id number] Test Date: 2017-12-22 Pat Name: Don Herring Department: 104 Room: 3A48 Gender: M [employer]: AM : 1955 Requested By: Cole Christianson Order Number: [id number] Reading MD: Erasto Gorman DO Measurements Intervals [place] Rate: 88 P: 85 MD: 177 QRS: 21 QRSD: 88 T: 56 QT: 339 QTc: 385 Interpretive Statements SINUS RHYTHM Electronically Signed On 12-27-2017 20:52:37 EDT by Erasto Gorman DO
== END 2017-12-26 12:13 | disposition home health service (06) | DRG 190 ==
LOC: 3ANU 09:48 → EMEROO 09:48 → 3ANU 14:01
PROVIDERS: ADMIT Student in an Organized Health Care Education/Training Program; ATTEND Hospitalist

== ENCOUNTER 2018-01-22 21:09 | Inpatient (IN) ==
[2018-01-22] MEDS ORDERED: Ipratropium/Albuterol Neb 3 ML IH ONE (21:23)
[2018-01-22] MEDS ORDERED: methylPREDNISolone 125 MG/2 ML VIAL IVP ONE (21:23)
--- NOTE | 2018-01-22 21:25 | Emergency Department Note ---
Disposition Clinical Impression: HCAP (healthcare-associated pneumonia), Sepsis, COPD exacerbation Leukocytosis Qualifiers: Leukocytosis type: unspecified Qualified Code(s): D72.829 - Elevated white blood cell count, unspecified Disposition: Admitted As Inpatient Condition: Fair SOB HPI - General Chief Complaint: ED Shortness of Breath/Dyspnea Stated Complaint: SHUBHAM Time Seen by Provider: 01/22/18 21:13 Source: patient, EMS Limitations: no limitations Nursing Notes Reviewed: Yes Vital Signs Reviewed: Yes - History of Present Illness Patient presents to the ED with the chief complaint of shortness of breath, cough and fever. Patient has a history of COPD and CHF. States that he was admitted last month for a COPD exacerbation. Approximately 6 days ago he started developing a nonproductive cough and increasing dyspnea. He states that 3 days ago. He called his primary care physician who placed him on steroids. States he has continued to get worse. He has had fevers at home, productive green and yellow cough, some chest discomfort and increasing shortness of breath. No abdominal pain, vomiting or diarrhea. No new pain or swelling in his legs. States he feels like he has pneumonia. - Related Data Home Medications Medication Instructions Recorded Confirmed Albuterol Sulfate [Albuterol 2 puff IH Q4HR PRN 03/16/16 01/22/18 Inhaler] Azelastine 0.1% Nasal [place] 1 spray NS BID 03/16/16 01/22/18 [Astelin] Budesonide/Formoterol 160/4.5 2 puff IH BIDR 03/16/16 01/22/18 [Symbicort 160/4.5] Ergocalciferol (VITAMIN D2) 400 unit PO DAILY 03/16/16 01/22/18 [Vitamin D] Esomeprazole Magnesium [Nexium] 40 mg PO BID 03/16/16 01/22/18 Fluticasone Propionate Nasal 2 spray NS DAILY 03/16/16 01/22/18 [Flonase] Ketoconazole Shampoo [Nizoral 1 appl TP 3XW 03/16/16 01/22/18 Shampoo] Psyllium Seed (with Sugar) 1 each PO HS 03/16/16 01/22/18 [Metamucil Powder] Roflumilast [Daliresp] 500 mcg PO DAILY 03/16/16 01/22/18 Sodium Chloride [[place] Saline] 1 spray NS BID PRN 03/16/16 01/22/18 Umeclidinium [place] [Incruse 1 puff IH DAILY 11/03/16 12/22/17 Ellipta] Oxygen 3 l .ROUTE AD 11/20/16 01/22/18 Metoprolol [Lopressor] 25 mg PO BID 07/05/17 01/22/18 predniSONE [PredniSONE] 5 mg PO DAILY 07/05/17 01/22/18 Acetaminophen [Tylenol] 1,000 mg PO BID PRN 09/22/17 01/22/18 Aspirin 81 mg PO DAILY 09/22/17 01/22/18 Docusate Sodium [Dok] 600 mg PO QPM 09/22/17 01/22/18 Guaifenesin [Mucinex] 400 mg PO Q12H PRN 09/22/17 01/22/18 Ipratropium/Albuterol Neb [Duoneb] 3 ml IH Q4H PRN 09/22/17 01/22/18 Ondansetron HCl [Zofran] 4 mg PO Q4H PRN 09/22/17 01/22/18 clonazePAM [Klonopin] 0.5 mg PO TID PRN 09/22/17 01/22/18 Furosemide [Lasix] 40 mg PO BID 09/27/17 01/22/18 predniSONE [PredniSONE] 10 mg PO DAILY 12/22/17 01/22/18 Aclidinium [place] [Tudorza 400 mcg IH BID 01/23/18 01/23/18 Pressair] Amlodipine Besylate 10 mg PO DAILY 01/23/18 01/23/18 Docusate Sodium [Stool Softener] 100 mg PO BID 01/23/18 01/23/18 Metoclopramide HCl 10 mg PO ACHS 01/23/18 01/23/18 Polyethylene Glycol [Polyox 1 gm PO DAILY 01/23/18 01/23/18 [id number]] Previous Rx's Medication Instructions Recorded Losartan [Cozaar] 25 mg PO DAILY #30 tablet 12/10/16 Cetirizine HCl [Zyrtec] 10 mg PO DAILY PRN #0 01/27/17 Magnesium Oxide [Mag-Ox] 400 mg PO DAILY #15 tablet 01/27/17 Potassium Chloride 20 meq PO DAILY #15 tab.er.prt 01/27/17 Allergies Allergy/AdvReac Type Severity Reaction Status Date / Time morphine Allergy Difficulty Verified 12/22/17 10:39 Breathing sulfamethoxazole Allergy Hives Verified 12/22/17 10:39 [From Bactrim] trimethoprim [From Bactrim] Allergy Hives Verified 12/22/17 10:39 codeine AdvReac Nausea Verified 12/22/17 10:39 Review of Systems: As reviewed in the HPI. All other systems reviewed are negative or normal. Constitutional: Reports: as per HPI Eyes: Reports: as per HPI Cardiovascular: Reports: as per HPI Past Medical History - Past Medical History Attestation: Yes The following information was validated with the patient. Source: patient Medical history: Reports: cardiomyopathy, CHF, COPD, diabetes, GERD, hypertension, other Surgical history: Reports: cataract, herniorrhaphy, other Psychiatric history: Reports: anxiety, depression - Social History Smoking Status: Former smoker Smokeless Tobacco Status: No Alcohol use: Reports: rarely Drug use: Reports: none Physical Exam - General Limitations: no limitations General appearance: alert, in no apparent distress, obese - Respiratory Respiratory exam: Present: wheezes (Throughout, inspiratory and expiratory). Absent: normal lung sounds bilaterally, respiratory distress - Cardiovascular Cardiovascular exam: Present: tachycardia, normal heart sounds - Abdominal Exam Abdominal exam: Present: soft, Non-Tender, other (Obese). Absent: distention, guarding, rebound - Extremities Exam Extremities exam: Present: normal inspection, full ROM. Absent: tenderness, pedal edema - Neurological Exam Neurological exam: Present: alert, oriented X3 - Psychiatric Psychiatric exam: Present: normal affect, normal mood - Skin Skin exam: Present: warm, dry, intact, normal color Course Course Narrative: Patient presenting the ED with shortness of breath, cough and fever. Also having significant wheezing and coarse breath sounds. Clinically has pneumonia. She is febrile here. We will check labs, chest x-ray, EKG. Also, check lactic acid and admit. - Reevaluation(s) Reevaluation #1: Patient's chest x-ray is clear. However, clinically has pneumonia. Does have leukocytosis, which could also be from his recent steroid use. However, again he has had fever, productive cough and a recent admission, so we will treat him as healthcare acquired pneumonia. Blood cultures were required prior to antibiotic administration. He also had an elevated lactic acid, which was downtrending but after medical record review, he does seem to have a chronically elevated lactic acid. Admitted to the hospitalist service. Vital Signs Temperature 98.2 F 01/22/18 21:16 Pulse Rate 116 01/22/18 21:16 Respiratory Rate 24 01/22/18 21:16 Blood Pressure 151/74 01/22/18 21:16 O2 Sat by Pulse Oximetry 95 01/22/18 21:16 Temperature 98.2 F 01/23/18 04:07 Pulse Rate 86 01/23/18 04:07 Respiratory Rate 20 01/23/18 04:07 Blood Pressure 155/75 01/23/18 04:07 O2 Sat by Pulse Oximetry 95 01/23/18 04:07 Oxygen Delivery Oxygen Delivery Nasal Cannula Shortness of Breath/Dyspnea - Medical Records Medical records reviewed: Yes I reviewed the patient's medical records. - Lab Data Lab results reviewed: Yes I reviewed the patient's lab results. Result diagrams: 01/22/18 21:23 01/22/18 21:23 Lab Results 01/22/18 01/22/18 01/22/18 Range/Units 21:23 21:23 21:23 WBC 17.2 H (4.3-11.1) K/mcL RBC 4.35 (4.19-5.50) M/mcL Hgb 11.4 L (12.9-16.9) g/dL Hct 35.4 L (37.5-50.1) % MCV 81.4 L (83.0-100.0) fL MCH 26.2 L (28.0-33.3) pg MCHC 32.2 (31.6-35.5) g/dL RDW 16.8 H (11.5-14.5) % Plt Count 397 (140-400) K/mcL MPV 8.4 L (9.4-12.4) fL Immature Gran % 2.2 (0-4) % Seg Neutrophils % 74.5 % Lymphocytes % 15.7 % Monocytes % 6.5 % Eosinophils % 0.7 % Basophils % 0.4 % Neutrophils # 12.8 H (1.6-8.9) K/mcL Lymphocytes # 2.7 (0.6-4.6) K/mcL Monocytes # 1.1 (0.0-1.3) K/mcL Eosinophils # 0.1 (0.0-0.6) K/mcL Basophils # 0.1 (0.0-0.2) K/mcL Sodium 136 (136-145) mEq/L Potassium 4.0 (3.5-5.1) mEq/L Chloride 103 (98-107) mEq/L Carbon Dioxide 23 (23-29) mEq/L BUN 15 (8-23) mg/dL Creatinine 0.95 (0.70-1.30) mg/dL Est GFR ( Amer) > 60 (> 60) Est GFR (Non-Af Amer) > 60 (> 60) BUN/Creatinine Ratio 16 (6-26) Glucose 109 H (70-105) mg/dL Calculated Osmolality 283 (280-300) Lactic Acid (0.5-2.2) mmol/L Calcium 9.6 (8.6-10.3) mg/dL Troponin I < 0.03 (< 0.04) ng/mL B-Natriuretic Peptide 24 (Less than 100) pg/mL 01/22/18 01/22/18 Range/Units 21:31 23:12 WBC (4.3-11.1) K/mcL RBC (4.19-5.50) M/mcL Hgb (12.9-16.9) g/dL Hct (37.5-50.1) % MCV (83.0-100.0) fL MCH (28.0-33.3) pg MCHC (31.6-35.5) g/dL RDW (11.5-14.5) % Plt Count (140-400) K/mcL MPV (9.4-12.4) fL Immature Gran % (0-4) % Seg Neutrophils % % Lymphocytes % % Monocytes % % Eosinophils % % Basophils % % Neutrophils # (1.6-8.9) K/mcL Lymphocytes # (0.6-4.6) K/mcL Monocytes # (0.0-1.3) K/mcL Eosinophils # (0.0-0.6) K/mcL Basophils # (0.0-0.2) K/mcL Sodium (136-145) mEq/L Potassium (3.5-5.1) mEq/L Chloride (98-107) mEq/L Carbon Dioxide (23-29) mEq/L BUN (8-23) mg/dL Creatinine (0.70-1.30) mg/dL Est GFR ( Amer) (> 60) Est GFR (Non-Af Amer) (> 60) BUN/Creatinine Ratio (6-26) Glucose (70-105) mg/dL Calculated Osmolality (280-300) Lactic Acid 2.6 H 2.4 H (0.5-2.2) mmol/L Calcium (8.6-10.3) mg/dL Troponin I (< 0.04) ng/mL B-Natriuretic Peptide (Less than 100) pg/mL - Radiology Data Radiology results reviewed: Yes I reviewed the patient's radiology results. - EKG Data EKG attestation: Yes I reviewed and interpreted this EKG. EKG results narrative: Sinus rhythm, rate 93, IN interval 171, QRS 91, QTc is 90, normal axis, no acute ischemic changes
[2018-01-22 21:41] LABS: Basophils # 0.1 K/mcL (0.0-0.2); Basophils % 0.4 %; Eosinophils # 0.1 K/mcL (0.0-0.6); Eosinophils % 0.7 %; Hematocrit 35.4 % (37.5-50.1); Hemoglobin 11.4 g/dL (12.9-16.9); Immature Granulocytes % 2.2 % (0-4); Lymphocytes # 2.7 K/mcL (0.6-4.6); Lymphocytes % 15.7 %; Mean Corpuscular HGB Conc 32.2 g/dL (31.6-35.5); Mean Corpuscular Hemoglobin 26.2 pg (28.0-33.3); Mean Corpuscular Volume 81.4 fL (83.0-100.0); Mean Platelet Volume 8.4 fL (9.4-12.4); Monocytes # 1.1 K/mcL (0.0-1.3); Monocytes % 6.5 %; Neutrophils # 12.8 K/mcL (1.6-8.9); Platelet Count 397 K/mcL (140-400); Red Blood Count 4.35 M/mcL (4.19-5.50); Red Cell Distribution Width 16.8 % (11.5-14.5); Segmented Neutrophils % 74.5 %
[2018-01-22 22:02] LABS: BUN/Creatinine Ratio 16 (6-26); Blood Urea Nitrogen 15 mg/dL (8-23); Calcium 9.6 mg/dL (8.6-10.3); Carbon Dioxide 23 mEq/L (23-29); Chloride 103 mEq/L (98-107); Glucose 109 mg/dL (70-105); Osmolality,Calculated 283 (280-300); Sodium 136 mEq/L (136-145); eGFR For African Americans > 60 (> 60); eGFR For Non-African Americans > 60 (> 60)
[2018-01-22 22:03] LABS: Troponin I < 0.03 ng/mL (< 0.04)
[2018-01-22] MEDS ORDERED: Piperacillin/Tazobactam 3.375 GM in 0.9 % Sodium Chloride Mini Bag 100 ML IVPB ONE (22:20)
[2018-01-22] MEDS ORDERED: Levofloxacin 750 MG/150 ML 750 MG/150 ML BAG IVPB ONE (22:20)
[2018-01-22] MEDS ORDERED: 0.9 % Sodium Chloride 1,000 ML IVC ONE (22:21)
[2018-01-22] MEDS ORDERED: Piperacillin/Tazobactam 3.375 GM in Water for inj. (sterile) 20 ML 20 ML IVPB ONE (23:15)
[2018-01-23] MEDS ORDERED: clonazePAM 0.5 MG TABLET PO STA (00:18)
[2018-01-23] MEDS ORDERED: Naloxone 0.4 MG/ML INJ IVP PRN (00:44)
--- NOTE | 2018-01-23 00:57 | Emergency Department Note ---
Disposition Clinical Impression: HCAP (healthcare-associated pneumonia), Sepsis, COPD exacerbation Leukocytosis Qualifiers: Leukocytosis type: unspecified Qualified Code(s): D72.829 - Elevated white blood cell count, unspecified Disposition: Admitted As Inpatient Condition: Fair General Adult HPI - General Chief complaint: ED Shortness of Breath/Dyspnea Stated complaint: SHUBHAM Time Seen by Provider: 01/22/18 21:13 Source: patient, EMS Limitations: no limitations Nursing Notes Reviewed: Yes Vital Signs Reviewed: Yes - History of Present Illness Pain Scale: 0 - Related Data Home Medications Medication Instructions Recorded Confirmed Albuterol Sulfate [Albuterol 2 puff IH Q4HR PRN 03/16/16 01/22/18 Inhaler] Azelastine 0.1% Nasal [place] 1 spray NS BID 03/16/16 01/22/18 [Astelin] Budesonide/Formoterol 160/4.5 2 puff IH BIDR 03/16/16 01/22/18 [Symbicort 160/4.5] Ergocalciferol (VITAMIN D2) 400 unit PO DAILY 03/16/16 01/22/18 [Vitamin D] Esomeprazole Magnesium [Nexium] 40 mg PO BID 03/16/16 01/22/18 Fluticasone Propionate Nasal 2 spray NS DAILY 03/16/16 01/22/18 [Flonase] Ketoconazole Shampoo [Nizoral 1 appl TP 3XW 03/16/16 01/22/18 Shampoo] Psyllium Seed (with Sugar) 1 each PO HS 03/16/16 01/22/18 [Metamucil Powder] Roflumilast [Daliresp] 500 mcg PO DAILY 03/16/16 01/22/18 Sodium Chloride [[place] Saline] 1 spray NS BID PRN 03/16/16 01/22/18 Umeclidinium [place] [Incruse 1 puff IH DAILY 11/03/16 12/22/17 Ellipta] Oxygen 3 l .ROUTE AD 11/20/16 01/22/18 Metoprolol [Lopressor] 25 mg PO BID 07/05/17 01/22/18 predniSONE [PredniSONE] 5 mg PO DAILY 07/05/17 01/22/18 Acetaminophen [Tylenol] 1,000 mg PO BID PRN 09/22/17 01/22/18 Aspirin 81 mg PO DAILY 09/22/17 01/22/18 Docusate Sodium [Dok] 600 mg PO QPM 09/22/17 01/22/18 Guaifenesin [Mucinex] 400 mg PO Q12H PRN 09/22/17 01/22/18 Ipratropium/Albuterol Neb [Duoneb] 3 ml IH Q4H PRN 09/22/17 01/22/18 Ondansetron HCl [Zofran] 4 mg PO Q4H PRN 09/22/17 01/22/18 clonazePAM [Klonopin] 0.5 mg PO TID PRN 09/22/17 01/22/18 Furosemide [Lasix] 40 mg PO BID 09/27/17 01/22/18 predniSONE [PredniSONE] 10 mg PO DAILY 12/22/17 01/22/18 Aclidinium [place] [Tudorza 400 mcg IH BID 01/23/18 01/23/18 Pressair] Amlodipine Besylate 10 mg PO DAILY 01/23/18 01/23/18 Docusate Sodium [Stool Softener] 100 mg PO BID 01/23/18 01/23/18 Metoclopramide HCl 10 mg PO ACHS 01/23/18 01/23/18 Polyethylene Glycol [Polyox 1 gm PO DAILY 01/23/18 01/23/18 [id number]] Previous Rx's Medication Instructions Recorded Losartan [Cozaar] 25 mg PO DAILY #30 tablet 12/10/16 Cetirizine HCl [Zyrtec] 10 mg PO DAILY PRN #0 01/27/17 Magnesium Oxide [Mag-Ox] 400 mg PO DAILY #15 tablet 01/27/17 Potassium Chloride 20 meq PO DAILY #15 tab.er.prt 01/27/17 Allergies Allergy/AdvReac Type Severity Reaction Status Date / Time morphine Allergy Difficulty Verified 12/22/17 10:39 Breathing sulfamethoxazole Allergy Hives Verified 12/22/17 10:39 [From Bactrim] trimethoprim [From Bactrim] Allergy Hives Verified 12/22/17 10:39 codeine AdvReac Nausea Verified 12/22/17 10:39 Constitutional: Reports: as per HPI Eyes: Reports: as per HPI Cardiovascular: Reports: as per HPI Past Medical History - Past Medical History Medical history: Reports: cardiomyopathy, CHF, COPD, diabetes, GERD, hypertension, other Surgical history: Reports: cataract, herniorrhaphy, other Psychiatric history: Reports: anxiety, depression - Social History Smoking Status: Former smoker Smokeless Tobacco Status: No Alcohol use: Reports: rarely Drug use: Reports: none Physical Exam - General Limitations: no limitations General appearance: alert, in no apparent distress, obese Course Vital Signs Temperature 98.2 F 01/22/18 21:16 Pulse Rate 116 01/22/18 21:16 Respiratory Rate 24 01/22/18 21:16 Blood Pressure 151/74 01/22/18 21:16 O2 Sat by Pulse Oximetry 95 01/22/18 21:16 Temperature 98.2 F 01/23/18 04:07 Pulse Rate 86 01/23/18 04:07 Respiratory Rate 20 01/23/18 04:07 Blood Pressure 155/75 01/23/18 04:07 O2 Sat by Pulse Oximetry 95 01/23/18 04:07 Oxygen Delivery Oxygen Delivery Nasal Cannula Medical Decision Making - Lab Data Result diagrams: 01/23/18 03:05 01/23/18 03:05 Lab Results 01/22/18 01/22/18 01/22/18 Range/Units 21:23 21:23 21:23 WBC 17.2 H (4.3-11.1) K/mcL RBC 4.35 (4.19-5.50) M/mcL Hgb 11.4 L (12.9-16.9) g/dL Hct 35.4 L (37.5-50.1) % MCV 81.4 L (83.0-100.0) fL MCH 26.2 L (28.0-33.3) pg MCHC 32.2 (31.6-35.5) g/dL RDW 16.8 H (11.5-14.5) % Plt Count 397 (140-400) K/mcL MPV 8.4 L (9.4-12.4) fL Immature Gran % 2.2 (0-4) % Seg Neutrophils % 74.5 % Lymphocytes % 15.7 % Monocytes % 6.5 % Eosinophils % 0.7 % Basophils % 0.4 % Neutrophils # 12.8 H (1.6-8.9) K/mcL Lymphocytes # 2.7 (0.6-4.6) K/mcL Monocytes # 1.1 (0.0-1.3) K/mcL Eosinophils # 0.1 (0.0-0.6) K/mcL Basophils # 0.1 (0.0-0.2) K/mcL Sodium 136 (136-145) mEq/L Potassium 4.0 (3.5-5.1) mEq/L Chloride 103 (98-107) mEq/L Carbon Dioxide 23 (23-29) mEq/L BUN 15 (8-23) mg/dL Creatinine 0.95 (0.70-1.30) mg/dL Est GFR ( Amer) > 60 (> 60) Est GFR (Non-Af Amer) > 60 (> 60) BUN/Creatinine Ratio 16 (6-26) Glucose 109 H (70-105) mg/dL Calculated Osmolality 283 (280-300) Lactic Acid (0.5-2.2) mmol/L Calcium 9.6 (8.6-10.3) mg/dL Troponin I < 0.03 (< 0.04) ng/mL B-Natriuretic Peptide 24 (Less than 100) pg/mL 01/22/18 01/22/18 Range/Units 21:31 23:12 WBC (4.3-11.1) K/mcL RBC (4.19-5.50) M/mcL Hgb (12.9-16.9) g/dL Hct (37.5-50.1) % MCV (83.0-100.0) fL MCH (28.0-33.3) pg MCHC (31.6-35.5) g/dL RDW (11.5-14.5) % Plt Count (140-400) K/mcL MPV (9.4-12.4) fL Immature Gran % (0-4) % Seg Neutrophils % % Lymphocytes % % Monocytes % % Eosinophils % % Basophils % % Neutrophils # (1.6-8.9) K/mcL Lymphocytes # (0.6-4.6) K/mcL Monocytes # (0.0-1.3) K/mcL Eosinophils # (0.0-0.6) K/mcL Basophils # (0.0-0.2) K/mcL Sodium (136-145) mEq/L Potassium (3.5-5.1) mEq/L Chloride (98-107) mEq/L Carbon Dioxide (23-29) mEq/L BUN (8-23) mg/dL Creatinine (0.70-1.30) mg/dL Est GFR ( Amer) (> 60) Est GFR (Non-Af Amer) (> 60) BUN/Creatinine Ratio (6-26) Glucose (70-105) mg/dL Calculated Osmolality (280-300) Lactic Acid 2.6 H 2.4 H (0.5-2.2) mmol/L Calcium (8.6-10.3) mg/dL Troponin I (< 0.04) ng/mL B-Natriuretic Peptide (Less than 100) pg/mL Attestation Statement - Attestation Attestation: I, Moose Echavarria MD, personally evaluated this patient and discussed their management with the resident physician. I reviewed the resident's note and agree with the documented findings, medical decision making, and plan of care. 62-year-old male with history of COPD presents to the emergency department with a complaint of increased shortness of breath over the past week. Increased cough with some greenish yellow sputum production. No chest pain. Some tightness in his chest secondary to his breathing difficulty. No fever. Patient called his PCP and was started on steroids and antibiotics several days ago but symptoms seemed to just be getting progressively worse. On examination patient is a well-developed obese elderly male in no acute distress. He is alert and oriented 3. There is no cyanosis or diaphoresis. Breath sounds are equal bilaterally with diffuse bilateral expiratory wheezes. Heart regular. Abdomen soft and nontender. Labs reviewed. No acute abnormality noted on chest x-ray. EKG shows a normal sinus rhythm with ventricular rate of 93. No acute ST segment elevation or depression. No ectopy or arrhythmia. The hospitalist, Dr. Galicia, was consulted and accepted admission of the patient.
[2018-01-23] MEDS ORDERED: Loratadine 10 MG TABLET PO PRN (00:59)
[2018-01-23] MEDS ORDERED: Ondansetron ODT 4 MG TAB.RAPDIS PO PRN (00:59)
[2018-01-23] MEDS: 0.9 % Sodium Chloride 1,000 ML IVC SCH ×5 (02:15→05:13)
[2018-01-23] MEDS: Ipratropium/Albuterol Neb 3 ML IH SCH ×4 (03:28→21:16)
--- NOTE | 2018-01-23 03:38 | Internal Med History&Physical ---
Date of Encounter: 01/22/18 Time of Encounter: 22:00 Internal Medicine - H&P: HPI Chief complaint: Shortness of breath Admitted From: Home Plans for Post Hospital Care: Home History of present illness: Mr. Herring is a 62 year old male presented to ER for shortness of breath and cough for 5 days. Past medical history is significant for COPD, CHF, hypertension, VANI on night BiPAP. Patient has COPD exacerbation last month and was admitted. About 5 days ago, she developed shortness of breath, productive cough with yellowish sputum. Patient denies chest pain, nausea, or diaphoresis. He has a low fever today with temperature 100.4. Patient started prednisone treatment by his PCP 2 days ago. Patient came to ER today and chest x-ray negative. Patient was admitted for COPD exacerbation. I have discussed with this patient regarding CODE STATUS. He clearly told me he does not want CPR if cardiac arrest happens, but accept intubation. DNR CCA placed Past Med Surg Social Fam HX - Past Medical History Medical history: cardiomyopathy, CHF, COPD, diabetes, GERD, hypertension, other Psychiatric history: anxiety, depression - Past Surgical History Surgical History: cataract, herniorrhaphy, other - Social History Smoking Status: Former smoker Smokeless Tobacco Status: No Alcohol use: rarely Drug use: none - Family History Father Family Member Ethnicity: Non- Living Status: Hx Family Cardiac Disorders: No Hx Family Respiratory Disorders: No Hx Family Cancer: Yes Hx Family GI Disorders: No Hx Family Endocrine Disorder: Yes Hx Family Neuromuscular Disorders: No Hx Family Neurologic Disorders: No Hx Family HEENT Disorders: No Hx Family Autoimmune Disorders: No Mother Adopted: No Family Member Ethnicity: Non- Living Status: Hx Family Cardiac Disorders: Yes Hx Family Respiratory Disorders: Yes Hx Family Cancer: Yes Hx Family GI Disorders: No Hx Family Endocrine Disorder: No Hx Family Neuromuscular Disorders: No Hx Family Neurologic Disorders: No Hx Family HEENT Disorders: No Hx Family Autoimmune Disorders: No Sister Living Status: Still Living Hx Family Cardiac Disorders: Yes Hx Family Respiratory Disorders: Yes Hx Family Cancer: No Hx Family GI Disorders: No Hx Family Endocrine Disorder: No Hx Family Neuromuscular Disorders: No Hx Family Neurologic Disorders: No Hx Family HEENT Disorders: No Hx Family Autoimmune Disorders: No Internal Medicine - H&P: Meds Albuterol Sulfate [Albuterol Inhaler] 2 puff IH Q4HR PRN 03/16/16 [History] Azelastine 0.1% Nasal [place] [Astelin] 1 spray NS BID 03/16/16 [History] Budesonide/Formoterol 160/4.5 [Symbicort 160/4.5] 2 puff IH BIDR 03/16/16 [ History] Ergocalciferol (VITAMIN D2) [Vitamin D] 400 unit PO DAILY 03/16/16 [History] Esomeprazole Magnesium [Nexium] 40 mg PO BID 03/16/16 [History] Fluticasone Propionate Nasal [Flonase] 2 spray NS DAILY 03/16/16 [History] Ketoconazole Shampoo [Nizoral Shampoo] 1 appl TP 3XW 03/16/16 [History] Psyllium Seed (with Sugar) [Metamucil Powder] 1 each PO HS 03/16/16 [History] Roflumilast [Daliresp] 500 mcg PO DAILY 03/16/16 [History] Sodium Chloride [Warden Saline] 1 spray NS BID PRN 03/16/16 [History] Umeclidinium Dana [Incruse Ellipta] 1 puff IH DAILY 11/03/16 [History] Oxygen 3 l .ROUTE AD 11/20/16 [History] Losartan [Cozaar] 25 mg PO DAILY #30 tablet 12/10/16 [Rx] Cetirizine HCl [Zyrtec] 10 mg PO DAILY PRN #0 01/27/17 [Rx] Magnesium Oxide [Mag-Ox] 400 mg PO DAILY #15 tablet 01/27/17 [Rx] Potassium Chloride 20 meq PO DAILY #15 tab.er.prt 01/27/17 [Rx] Metoprolol [Lopressor] 25 mg PO BID 07/05/17 [History] predniSONE [PredniSONE] 5 mg PO DAILY 07/05/17 [History] Acetaminophen [Tylenol] 1,000 mg PO BID PRN 09/22/17 [History] Aspirin 81 mg PO DAILY 09/22/17 [History] Docusate Sodium [Dok] 600 mg PO QPM 09/22/17 [History] Guaifenesin [Mucinex] 400 mg PO Q12H PRN 09/22/17 [History] Ipratropium/Albuterol Neb [Duoneb] 3 ml IH Q4H PRN 09/22/17 [History] Ondansetron HCl [Zofran] 4 mg PO Q4H PRN 09/22/17 [History] clonazePAM [Klonopin] 0.5 mg PO TID PRN 09/22/17 [History] Furosemide [Lasix] 40 mg PO BID 09/27/17 [History] predniSONE [PredniSONE] 10 mg PO DAILY 12/22/17 [History] Aclidinium Dana [Tudorza Pressair] 400 mcg IH BID 01/23/18 [History] Amlodipine Besylate 10 mg PO DAILY 01/23/18 [History] Docusate Sodium [Stool Softener] 100 mg PO BID 01/23/18 [History] Metoclopramide HCl 10 mg PO ACHS 01/23/18 [History] Polyethylene Glycol [Polyox Wsr-301] 1 gm PO DAILY 01/23/18 [History] 3 Allergy/AdvReac Type Severity Reaction Status Date / Time morphine Allergy Difficulty Verified 12/22/17 10:39 Breathing sulfamethoxazole Allergy Hives Verified 12/22/17 10:39 [From Bactrim] trimethoprim [From Bactrim] Allergy Hives Verified 12/22/17 10:39 codeine AdvReac Nausea Verified 12/22/17 10:39 All Systems PM: A 10-system review of systems was performed and is negative for pertinent findings except as documented above in the HPI. - Constitutional Vitals: Temp Pulse Resp BP Pulse Ox 98.2 F 85 22 147/80 95 01/22/18 21:16 01/23/18 01:20 01/23/18 03:28 01/23/18 01:20 01/23/18 03:28 General appearance: Present: A&O X 3, no acute distress, answers questions appropriately - Head Head exam: Present: atraumatic, normocephalic - Eye Eye exam: Present: PERRL, conjuntiva pink, sclera anicteric Pupils: Present: PERRL - Neck Neck exam general surgery: Present: supple, trachea midline. Absent: lymphadenopathy - Respiratory Respiratory exam: Present: CTAB, wheezes (Diffuse wheezes bilaterally). Absent : accessory muscle use, rales, rhonchi - Cardiovascular Cardiovascular exam: Present: RRR, +S1, +S2. Absent: diastolic murmur, gallop, rubs, systolic murmur - GI/Abdominal GI/Abdominal exam: Present: normal bowel sounds, soft, no peritoneal signs. Absent: distended, tenderness - Extremities Exam Extremities exam: Present: warm, radial pulses palpable and symmetrical. Absent : calf tenderness, cyanotic, pedal edema - Neurological Exam Neurological exam: Present: CN II-XII intact, oriented X3, no focal deficits. Absent: pronater drift, facial droop, speech deficit - Skin Skin exam: Present: dry, intact Internal Med - H&P Results - Labs CBC & Chem 7: 01/22/18 21:23 01/22/18 21:23 - EKG Data -: EKG Interpreted by Myself EKG shows normal: sinus rhythm Rate: normal - Assessment and plan (1) Acute bronchitis Current Visit: No Status: Acute Assessment and plan: Patient has cough, shortness of breath, CXR negative for pneumonia. Consider acute bronchitis. - Symptomatic treatment - Treat coexisting COPD exacerbation Qualifiers: Bronchitis organism: other organism Qualified Code(s): J20.8 - Acute bronchitis due to other specified organisms (2) Acute exacerbation of chronic obstructive airways disease Current Visit: No Status: Acute Assessment and plan: Patient has history of COPD. Had increased shortness of breath with wheezing. Consider COPD exacerbation. - Place patient on antibiotic, steroid, and bronchodilator - Oxygen supportive treatment (3) Acute on chronic respiratory failure Current Visit: No Status: Acute Assessment and plan: Due to COPD exacerbation. Continue treat underlying disease Qualifiers: Respiratory failure complication: hypoxia Qualified Code(s): J96.21 - Acute and chronic respiratory failure with hypoxia (4) DVT prophylaxis Current Visit: No Status: Acute Assessment and plan: Heparin subcutaneously (5) Obesity Current Visit: No Status: Acute Assessment and plan: Need lifestyle modification Qualifiers: Obesity type: unspecified obesity type Obesity classification: adult class 3 (BMI >= 40) Serious obesity comorbidity presence: unspecified whether serious comorbidity present Body mass index: BMI 40.0-44.9 Qualified Code(s) : E66.9 - Obesity, unspecified; Z68.41 - Body mass index (BMI) 40.0-44.9, adult ; Z68.41 - Body mass index (BMI) 40.0-44.9, adult; Z68.41 - Body mass index (BMI ) 40.0-44.9, adult; Z68.41 - Body mass index (BMI) 40.0-44.9, adult (6) CHF (congestive heart failure) Current Visit: No Status: Chronic Assessment and plan: Appears euvolemic. Continue close monitoring Qualifiers: Qualified Code(s): I50.32 - Chronic diastolic (congestive) heart failure (7) HTN (hypertension) Current Visit: No Status: Chronic Assessment and plan: Continue home medications Qualifiers: Hypertension type: essential hypertension Qualified Code(s): I10 - Essential (primary) hypertension (8) Obstructive sleep apnea Current Visit: No Status: Chronic Assessment and plan: Patient uses BiPAP at home during night. Will continue. (9) Lactic acidosis Current Visit: No Status: Resolved Assessment and plan: Patient has chronic elevated lactate level. No signs of sepsis. Elevated WBC most likely due to steroid use. Patient was received 2000 mL normal saline in ER. Will closely follow-up lactate level. - Time Spent With Patient Total time spent is greater than 50% in coordination of care (as documented) at patient's floor/unit and/or counseling patient: 40 min Greater than 35 minutes
[2018-01-23 04:09] LABS: Basophils # 0.1 K/mcL (0.0-0.2); Basophils % 0.4 %; Eosinophils % 0.2 %; Hematocrit 34.5 % (37.5-50.1); Hemoglobin 10.8 g/dL (12.9-16.9); Immature Granulocytes % 2.1 % (0-4); Lymphocytes % 6.2 %; Mean Corpuscular HGB Conc 31.3 g/dL (31.6-35.5); Mean Corpuscular Volume 82.9 fL (83.0-100.0); Mean Platelet Volume 9.1 fL (9.4-12.4); Monocytes # 0.3 K/mcL (0.0-1.3); Monocytes % 2.1 %; Neutrophils # 14.2 K/mcL (1.6-8.9); Platelet Count 371 K/mcL (140-400); Red Blood Count 4.16 M/mcL (4.19-5.50); Red Cell Distribution Width 16.9 % (11.5-14.5)
[2018-01-23 04:32] LABS: BUN/Creatinine Ratio 17 (6-26); Blood Urea Nitrogen 16 mg/dL (8-23); Carbon Dioxide 21 mEq/L (23-29); Chloride 105 mEq/L (98-107); Glucose 166 mg/dL (70-105); Magnesium 1.7 mg/dL (1.6-2.6); Osmolality,Calculated 289 (280-300); Potassium 4.8 mEq/L (3.5-5.1); Sodium 137 mEq/L (136-145); eGFR For African Americans > 60 (> 60); eGFR For Non-African Americans > 60 (> 60)
[2018-01-23] MEDS ORDERED: 0.9 % Sodium Chloride 1,000 ML ONE (04:36)
[2018-01-23] MEDS: *HR* Heparin 5,000 UNIT/ML VIAL SQ SCH ×2 (05:32→17:59)
[2018-01-23] MEDS: Acetaminophen 325 MG TABLET PO PRN ×2 (06:54→16:48)
[2018-01-23] MEDS ORDERED: Ringers Solution, Lactated 1,000 ML IVC SCH (08:00)
[2018-01-23] MEDS ORDERED: (Roflumilast [Daliresp] 500 MCG) PO SCH (09:00)
[2018-01-23] MEDS ORDERED: (Ergocalciferol (Vitamin D2) [Vitamin D] 400 UNIT) PO SCH (09:00)
[2018-01-23] MEDS ORDERED: Furosemide 40 MG TABLET PO SCH (09:00)
[2018-01-23] MEDS: predniSONE 20 MG TABLET PO SCH (09:02)
[2018-01-23] MEDS: Aspirin 81 MG TAB.CHEW PO SCH (09:02)
[2018-01-23] MEDS: amLODIPine 5 MG TABLET PO SCH (09:03)
[2018-01-23] MEDS: Fluticasone Propionate Nasal 50 MCG/SPRAY BOTTLE NS SCH (09:03)
[2018-01-23] MEDS: Furosemide 40 MG TABLET PO SCH ×2 (09:18→16:48)
[2018-01-23] MEDS: Azelastine 0.1% Nasal Spray 30 ML BOTTLE NS SCH ×2 (10:12→20:13)
[2018-01-23] MEDS: Levofloxacin 750 MG/150 ML 750 MG/150 ML BAG IVPB SCH (10:12)
[2018-01-23] MEDS: Budesonide/Formoterol 160/4.5 MDI IH SCH ×2 (10:31→21:10)
--- NOTE | 2018-01-23 13:43 | Internal Med Progress Note ---
Date of Encounter: 01/23/18 Time of Encounter: 11:00 - Assessment and plan (1) Acute on chronic respiratory failure Current Visit: Yes Status: Acute Assessment and plan: Due to acute exacerbation of COPD. Continue O2 supplementation. Qualifiers: Respiratory failure complication: hypoxia Qualified Code(s): J96.21 - Acute and chronic respiratory failure with hypoxia (2) Acute exacerbation of chronic obstructive airways disease Current Visit: Yes Status: Acute Assessment and plan: Patient continues to have bilateral end expiratory wheezing and shortness of breath. Continue steroids, bronchodilators and Levaquin. Due to underlying bronchitis. Moderate risk for complications. Continue O2 supplementation. (3) Acute bronchitis Current Visit: Yes Status: Acute Assessment and plan: Started on Levaquin. Will continue Qualifiers: Bronchitis organism: other organism Qualified Code(s): J20.8 - Acute bronchitis due to other specified organisms (4) HTN (hypertension) Current Visit: Yes Status: Chronic Assessment and plan: Blood pressure is in the 150 systolic today. Continue Norvasc, metoprolol, losartan. Will monitor blood pressure and adjust antihypertensive regimen accordingly. Qualifiers: Hypertension type: essential hypertension Qualified Code(s): I10 - Essential (primary) hypertension (5) Obstructive sleep apnea Current Visit: No Status: Chronic Assessment and plan: Use BiPAP while lying down. (6) Lactic acidosis Current Visit: Yes Status: Acute Assessment and plan: Uncertain etiology. Lactic acid 3.8 today. Patient does not appear to be having any signs of hypovolemia or android platform developer shock. We will monitor. (7) Obesity Current Visit: No Status: Acute Qualifiers: Obesity type: unspecified obesity type Obesity classification: adult class 3 (BMI >= 40) Serious obesity comorbidity presence: unspecified whether serious comorbidity present Body mass index: BMI 40.0-44.9 Qualified Code(s) : E66.9 - Obesity, unspecified; Z68.41 - Body mass index (BMI) 40.0-44.9, adult ; Z68.41 - Body mass index (BMI) 40.0-44.9, adult; Z68.41 - Body mass index (BMI ) 40.0-44.9, adult; Z68.41 - Body mass index (BMI) 40.0-44.9, adult (8) CHF (congestive heart failure) Current Visit: Yes Status: Chronic Assessment and plan: No signs of acute congestive heart failure. Most recommended recent echocardiogram in November 2016 shows an EF of 55-60% Qualifiers: Qualified Code(s): I50.32 - Chronic diastolic (congestive) heart failure (9) DVT prophylaxis Current Visit: Yes Status: Acute Assessment and plan: Subcutaneous heparin - Time Spent With Patient Total time spent is greater than 50% in coordination of care (as documented) at patient's floor/unit and/or counseling patient: - Subjective Interval history: Patient continues to have shortness of breath and wheezing. Does have cough. No fever or chills reported overnight. No chest pain - Constitutional Vitals: Temp Pulse Resp BP Pulse Ox 97.5 F L 90 20 156/80 94 01/23/18 11:32 01/23/18 11:32 01/23/18 11:32 01/23/18 11:32 01/23/18 11:32 General appearance: Present: A&O X 3, no acute distress, answers questions appropriately - Neck Neck exam general surgery: Present: supple, trachea midline. Absent: lymphadenopathy - Respiratory Respiratory exam: Present: decreased breath sounds (Diminished breath sounds bilaterally), prolonged expiratory phase, wheezes. Absent: accessory muscle use , rales, rhonchi - Cardiovascular Cardiovascular exam: Present: RRR, +S1, +S2. Absent: diastolic murmur, gallop, rubs, systolic murmur - GI/Abdominal GI/Abdominal exam: Present: normal bowel sounds, soft, no peritoneal signs. Absent: distended, tenderness - Extremities Exam Extremities exam: Present: warm, radial pulses palpable and symmetrical. Absent : calf tenderness, cyanotic, pedal edema - Neurological Exam Neurological exam: Present: alert, oriented X3, no focal deficits. Absent: facial droop, speech deficit Internal Medicine: Result - Labs CBC & Chem 7: 01/23/18 03:05 01/23/18 03:05 Labs: Short CBC 01/23/18 Range/Units 03:05 WBC 15.9 H (4.3-11.1) K/mcL Hgb 10.8 L (12.9-16.9) g/dL Hct 34.5 L (37.5-50.1) % Plt Count 371 (140-400) K/mcL Neutrophils # 14.2 H (1.6-8.9) K/mcL BMP 01/23/18 03:05 Sodium 137 Potassium 4.8 Chloride 105 Carbon Dioxide 21 L BUN 16 Creatinine 0.93 Glucose 166 H Calcium 9.0 Consult Discharge Plan - Plan Referrals: Jesus Machuca DO [Primary Care Provider] -
[2018-01-23 16:17] LABS: Adenovirus Not Detected (Not Detect); Bordetella Pertussis Not Detected (Not Detect); Chlamydophila pneumoniae Not Detected (Not Detect); Coronavirus 229E Not Detected (Not Detect); Coronavirus HKU1 Not Detected (Not Detect); Coronavirus NL63 Not Detected (Not Detect); Coronavirus OC43 Not Detected (Not Detect); Human Metapneumovirus Not Detected (Not Detect); Human Rhinovirus/Enterovirus ***DETECTED*** (Not Detect); Influenza A Subtype 2009 H1 Not Detected (Not Detect); Influenza A Untypeable Not Detected (Not Detect); Influenza B Not Detected (Not Detect); Mycoplasma pneumoniae Not Detected (Not Detect); Parainfluenza Virus 1 Not Detected (Not Detect); Parainfluenza Virus 2 Not Detected (Not Detect); Parainfluenza Virus 3 Not Detected (Not Detect); Parainfluenza Virus 4 Not Detected (Not Detect); Respiratory Syncytial Virus Not Detected (Not Detect)
[2018-01-23] MEDS: clonazePAM 0.5 MG TABLET PO PRN (20:14)
[2018-01-23] MEDS: Psyllium 1 PACKET POWD.PACK PO SCH (20:15)
[2018-01-23] MEDS ORDERED: Levofloxacin 750 MG/150 ML 750 MG/150 ML BAG IVPB SCH (22:00)
[2018-01-24] MEDS: Ipratropium/Albuterol Neb 3 ML IH SCH ×4 (03:50→21:54)
[2018-01-24] MEDS: *HR* Heparin 5,000 UNIT/ML VIAL SQ SCH ×2 (05:21→17:17)
[2018-01-24 05:48] LABS: Basophils # 0.1 K/mcL (0.0-0.2); Basophils % 0.5 %; Eosinophils # 0.1 K/mcL (0.0-0.6); Eosinophils % 0.9 %; Hematocrit 34.7 % (37.5-50.1); Hemoglobin 10.9 g/dL (12.9-16.9); Immature Granulocytes % 2.2 % (0-4); Lymphocytes # 2.5 K/mcL (0.6-4.6); Lymphocytes % 19.4 %; Mean Corpuscular HGB Conc 31.4 g/dL (31.6-35.5); Mean Corpuscular Hemoglobin 25.9 pg (28.0-33.3); Mean Corpuscular Volume 82.4 fL (83.0-100.0); Mean Platelet Volume 8.5 fL (9.4-12.4); Monocytes # 0.9 K/mcL (0.0-1.3); Monocytes % 6.9 %; Neutrophils # 9.1 K/mcL (1.6-8.9); Platelet Count 344 K/mcL (140-400); Red Blood Count 4.21 M/mcL (4.19-5.50); Segmented Neutrophils % 70.1 %
[2018-01-24 06:09] LABS: BUN/Creatinine Ratio 18 (6-26); Blood Urea Nitrogen 16 mg/dL (8-23); Calcium 9.6 mg/dL (8.6-10.3); Carbon Dioxide 28 mEq/L (23-29); Chloride 102 mEq/L (98-107); Glucose 128 mg/dL (70-105); Osmolality,Calculated 291 (280-300); Potassium 3.6 mEq/L (3.5-5.1); Sodium 139 mEq/L (136-145); eGFR For African Americans > 60 (> 60); eGFR For Non-African Americans > 60 (> 60)
[2018-01-24] MEDS: Ipratropium/Albuterol Neb 3 ML IH PRN ×3 (07:47→19:33)
[2018-01-24] MEDS: Budesonide/Formoterol 160/4.5 MDI IH SCH ×2 (08:02→19:35)
[2018-01-24] MEDS: Levofloxacin 750 MG/150 ML 750 MG/150 ML BAG IVPB SCH (08:40)
[2018-01-24] MEDS: Cholecalciferol (D-3) 1,000 UNIT TABLET PO SCH (08:41)
[2018-01-24] MEDS: predniSONE 20 MG TABLET PO SCH (08:41)
[2018-01-24] MEDS: Aspirin 81 MG TAB.CHEW PO SCH (08:41)
[2018-01-24] MEDS: amLODIPine 5 MG TABLET PO SCH (08:41)
[2018-01-24] MEDS: Furosemide 40 MG TABLET PO SCH ×2 (08:41→17:17)
[2018-01-24] MEDS: Fluticasone Propionate Nasal 50 MCG/SPRAY BOTTLE NS SCH (08:43)
[2018-01-24] MEDS: Azelastine 0.1% Nasal Spray 30 ML BOTTLE NS SCH ×2 (08:43→20:10)
[2018-01-24] MEDS: Acetaminophen 325 MG TABLET PO PRN ×2 (09:28→18:39)
[2018-01-24] MEDS ORDERED: Chloraseptic Spray 177 ML BOTTLE MM PRN (13:59)
--- NOTE | 2018-01-24 14:12 | Internal Med Progress Note ---
Date of Encounter: 01/24/18 Time of Encounter: 10:15 - Assessment and plan (1) Acute on chronic respiratory failure Current Visit: Yes Status: Acute Assessment and plan: Continue O2 supplementation. Continue to treat underlying COPD. Qualifiers: Respiratory failure complication: hypoxia Qualified Code(s): J96.21 - Acute and chronic respiratory failure with hypoxia (2) Acute exacerbation of chronic obstructive airways disease Current Visit: Yes Status: Acute Assessment and plan: Continue O2 supplementation. Continue steroids. Respiratory panel positive for rhinovirus. Likely triggering event. Continue bronchodilators. (3) Acute bronchitis Current Visit: Yes Status: Acute Assessment and plan: Respiratory panel positive for rhinovirus. Continue Levaquin to treat superimposed bacterial infections. Qualifiers: Bronchitis organism: other organism Qualified Code(s): J20.8 - Acute bronchitis due to other specified organisms (4) HTN (hypertension) Current Visit: Yes Status: Chronic Assessment and plan: Blood pressure is elevated this morning. We will continue monitor and adjust antihypertensive regimen accordingly. Qualifiers: Hypertension type: essential hypertension Qualified Code(s): I10 - Essential (primary) hypertension (5) Obstructive sleep apnea Current Visit: No Status: Chronic (6) Lactic acidosis Current Visit: Yes Status: Resolved (7) Obesity Current Visit: No Status: Chronic Qualifiers: Obesity type: unspecified obesity type Obesity classification: adult class 3 (BMI >= 40) Serious obesity comorbidity presence: unspecified whether serious comorbidity present Body mass index: BMI 40.0-44.9 Qualified Code(s) : E66.9 - Obesity, unspecified; Z68.41 - Body mass index (BMI) 40.0-44.9, adult ; Z68.41 - Body mass index (BMI) 40.0-44.9, adult; Z68.41 - Body mass index (BMI ) 40.0-44.9, adult; Z68.41 - Body mass index (BMI) 40.0-44.9, adult (8) CHF (congestive heart failure) Current Visit: Yes Status: Chronic Assessment and plan: Chronic. Not in acute exacerbation at this time. Continue losartan, aspirin and beta [place]. Continue Lasix Qualifiers: Qualified Code(s): I50.32 - Chronic diastolic (congestive) heart failure (9) DVT prophylaxis Current Visit: Yes Status: Acute Assessment and plan: Continue subcutaneous heparin - Time Spent With Patient Total time spent is greater than 50% in coordination of care (as documented) at patient's floor/unit and/or counseling patient: - Subjective Interval history: Patient complaining of continued shortness of breath and wheezing. Does have cough. Not making much sputum. Denies any chest pain at this time. No fever or chills. - Constitutional Vitals: Temp Pulse Resp BP Pulse Ox 97.6 F 82 20 124/72 95 01/24/18 11:17 01/24/18 11:17 01/24/18 11:01/24/18 11:01/24/18 11:17 General appearance: Present: A&O X 3, no acute distress, answers questions appropriately - Neck Neck exam general surgery: Present: supple, trachea midline. Absent: lymphadenopathy - Respiratory Respiratory exam: Present: decreased breath sounds (Diminished breath sounds bilaterally), prolonged expiratory phase, wheezes. Absent: accessory muscle use , rales, rhonchi - Cardiovascular Cardiovascular exam: Present: RRR, +S1, +S2. Absent: diastolic murmur, gallop, rubs, systolic murmur - GI/Abdominal GI/Abdominal exam: Present: normal bowel sounds, soft, no peritoneal signs. Absent: distended, tenderness - Extremities Exam Extremities exam: Present: warm, radial pulses palpable and symmetrical. Absent : calf tenderness, cyanotic, pedal edema - Neurological Exam Neurological exam: Present: alert, oriented X3, no focal deficits. Absent: facial droop, speech deficit Internal Medicine: Result - Labs CBC & Chem 7: 01/24/18 05:38 01/24/18 05:38 Labs: Short CBC 01/24/18 Range/Units 05:38 WBC 12.9 H (4.3-11.1) K/mcL Hgb 10.9 L (12.9-16.9) g/dL Hct 34.7 L (37.5-50.1) % Plt Count 344 (140-400) K/mcL Neutrophils # 9.1 H (1.6-8.9) K/mcL BMP 01/24/18 05:38 Sodium 139 Potassium 3.6 Chloride 102 Carbon Dioxide 28 BUN 16 Creatinine 0.88 Glucose 128 H Calcium 9.6 Consult Discharge Plan - Plan Referrals: Jesus Machuca DO [Primary Care Provider] -
[2018-01-24] MEDS: clonazePAM 0.5 MG TABLET PO PRN (20:08)
[2018-01-24] MEDS: Psyllium 1 PACKET POWD.PACK PO SCH (20:08)
[2018-01-25] MEDS: Ipratropium/Albuterol Neb 3 ML IH SCH ×4 (03:41→20:38)
[2018-01-25] MEDS: *HR* Heparin 5,000 UNIT/ML VIAL SQ SCH ×2 (05:59→16:55)
[2018-01-25] MEDS: Budesonide/Formoterol 160/4.5 MDI IH SCH ×2 (07:37→20:40)
[2018-01-25] MEDS: Ipratropium/Albuterol Neb 3 ML IH PRN ×2 (07:37→11:09)
[2018-01-25] MEDS: Aspirin 81 MG TAB.CHEW PO SCH (08:21)
[2018-01-25] MEDS: Magnesium Oxide 400 MG TABLET PO SCH (08:21)
[2018-01-25] MEDS: Cholecalciferol (D-3) 1,000 UNIT TABLET PO SCH (08:21)
[2018-01-25] MEDS: predniSONE 20 MG TABLET PO SCH (08:21)
[2018-01-25] MEDS: Furosemide 40 MG TABLET PO SCH ×2 (08:21→16:55)
[2018-01-25] MEDS: amLODIPine 5 MG TABLET PO SCH (08:22)
[2018-01-25] MEDS: Levofloxacin 750 MG/150 ML 750 MG/150 ML BAG IVPB SCH (08:22)
[2018-01-25] MEDS: Acetaminophen 325 MG TABLET PO PRN ×2 (08:22→18:10)
[2018-01-25] MEDS: Azelastine 0.1% Nasal Spray 30 ML BOTTLE NS SCH ×2 (08:25→21:10)
[2018-01-25] MEDS: Fluticasone Propionate Nasal 50 MCG/SPRAY BOTTLE NS SCH (08:25)
[2018-01-25] MEDS: Saline Nasal Spray 44 ML BOTTLE NS PRN ×2 (11:25→22:36)
--- NOTE | 2018-01-25 11:46 | Internal Med Progress Note ---
Date of Encounter: 01/25/18 Time of Encounter: 10:00 - Assessment and plan (1) Acute on chronic respiratory failure Current Visit: Yes Status: Acute Assessment and plan: Continue O2 supplementation, Prednisone, levofloxacin. Will order Chest PT and acetylcysteine inhalation therapy. Moderate risk for complications. Qualifiers: Respiratory failure complication: hypoxia Qualified Code(s): J96.21 - Acute and chronic respiratory failure with hypoxia (2) Acute exacerbation of chronic obstructive airways disease Current Visit: Yes Status: Acute Assessment and plan: Continue current management with steroids, bronchodilators and antibiotics. Due to acute viral bronchitis (3) Acute bronchitis Current Visit: Yes Status: Acute Assessment and plan: With rhinovirus. Being treated with levofloxacin to treat superimposed bacterial infections. Qualifiers: Bronchitis organism: other organism Qualified Code(s): J20.8 - Acute bronchitis due to other specified organisms (4) HTN (hypertension) Current Visit: Yes Status: Chronic Assessment and plan: BP is well controlled. Qualifiers: Hypertension type: essential hypertension Qualified Code(s): I10 - Essential (primary) hypertension (5) Obstructive sleep apnea Current Visit: Yes Status: Chronic Assessment and plan: Use BiPAP while lying down (6) Lactic acidosis Current Visit: Yes Status: Resolved (7) Obesity Current Visit: No Status: Chronic Qualifiers: Obesity type: unspecified obesity type Obesity classification: adult class 3 (BMI >= 40) Serious obesity comorbidity presence: unspecified whether serious comorbidity present Body mass index: BMI 40.0-44.9 Qualified Code(s) : E66.9 - Obesity, unspecified; Z68.41 - Body mass index (BMI) 40.0-44.9, adult ; Z68.41 - Body mass index (BMI) 40.0-44.9, adult; Z68.41 - Body mass index (BMI ) 40.0-44.9, adult; Z68.41 - Body mass index (BMI) 40.0-44.9, adult (8) CHF (congestive heart failure) Current Visit: Yes Status: Chronic Assessment and plan: Continue lasix. Not in acute exacerbation. Qualifiers: Qualified Code(s): I50.32 - Chronic diastolic (congestive) heart failure (9) DVT prophylaxis Current Visit: Yes Status: Acute Assessment and plan: On SQ heparin. - Time Spent With Patient Total time spent is greater than 50% in coordination of care (as documented) at patient's floor/unit and/or counseling patient: - Subjective Interval history: Patient complains of worsening shortness of breath and wheezing. Feels like he has lot of secretions that he is unable to cough up. No chest pain. No hemoptysis. - Constitutional Vitals: Temp Pulse Resp BP Pulse Ox 97.8 F 86 18 128/74 92 01/25/18 10:58 01/25/18 10:58 01/25/18 11:09 01/25/18 10:58 01/25/18 11:09 General appearance: Present: mild distress, A&O X 3, morbidly obese, answers questions appropriately - Neck Neck exam general surgery: Present: supple, trachea midline. Absent: lymphadenopathy - Respiratory Respiratory exam: Present: prolonged expiratory phase, rhonchi, wheezes. Absent : accessory muscle use, rales - Cardiovascular Cardiovascular exam: Present: RRR, +S1, +S2. Absent: diastolic murmur, gallop, rubs, systolic murmur - GI/Abdominal GI/Abdominal exam: Present: normal bowel sounds, soft, no peritoneal signs. Absent: distended, tenderness - Extremities Exam Extremities exam: Present: warm, radial pulses palpable and symmetrical. Absent : calf tenderness, cyanotic, pedal edema - Neurological Exam Neurological exam: Present: alert, oriented X3, no focal deficits, strengths equal and symetr throughout. Absent: facial droop, speech deficit - Skin Skin exam: Present: dry, intact Internal Medicine: Result - Labs CBC & Chem 7: 01/24/18 05:38 01/24/18 05:38 Consult Discharge Plan - Plan Referrals: Jesus Machuca DO [Primary Care Provider] -
[2018-01-25] MEDS: Acetylcysteine 10% 2 ML INHSOL IH SCH ×3 (13:34→20:40)
[2018-01-25] MEDS: Psyllium 1 PACKET POWD.PACK PO SCH (21:05)
[2018-01-25] MEDS: clonazePAM 0.5 MG TABLET PO PRN (22:35)
[2018-01-26] MEDS: Ipratropium/Albuterol Neb 3 ML IH SCH ×7 (00:19→23:46)
[2018-01-26] MEDS: Acetylcysteine 10% 2 ML INHSOL IH SCH ×7 (00:19→23:47)
[2018-01-26] MEDS: *HR* Heparin 5,000 UNIT/ML VIAL SQ SCH ×2 (04:55→17:07)
[2018-01-26] MEDS: Budesonide/Formoterol 160/4.5 MDI IH SCH ×2 (07:54→19:57)
[2018-01-26] MEDS: amLODIPine 5 MG TABLET PO SCH (08:48)
[2018-01-26] MEDS: clonazePAM 0.5 MG TABLET PO PRN ×2 (08:49→22:39)
[2018-01-26] MEDS: Cholecalciferol (D-3) 1,000 UNIT TABLET PO SCH (08:49)
[2018-01-26] MEDS: predniSONE 20 MG TABLET PO SCH (08:49)
[2018-01-26] MEDS: Aspirin 81 MG TAB.CHEW PO SCH (08:49)
[2018-01-26] MEDS: Furosemide 40 MG TABLET PO SCH ×2 (08:49→17:07)
[2018-01-26] MEDS: Magnesium Oxide 400 MG TABLET PO SCH (08:49)
[2018-01-26] MEDS: Fluticasone Propionate Nasal 50 MCG/SPRAY BOTTLE NS SCH (08:50)
[2018-01-26] MEDS: levoFLOXacin 750 MG TABLET PO SCH (08:53)
[2018-01-26] MEDS: Acetaminophen 325 MG TABLET PO PRN ×2 (11:35→17:06)
[2018-01-26] MEDS: Azelastine 0.1% Nasal Spray 30 ML BOTTLE NS SCH ×2 (11:36→20:45)
--- NOTE | 2018-01-26 13:38 | Internal Med Progress Note ---
Date of Encounter: 01/26/18 Time of Encounter: 13:32 - Assessment and plan (1) Acute on chronic respiratory failure Current Visit: Yes Status: Acute Assessment and plan: Continue O2 supplementation. Due to acute COPD exacerbation. On 4 L nasal cannula. He was on BiPAP while lying down. Improving slowly. Qualifiers: Respiratory failure complication: hypoxia Qualified Code(s): J96.21 - Acute and chronic respiratory failure with hypoxia (2) Acute exacerbation of chronic obstructive airways disease Current Visit: Yes Status: Acute Assessment and plan: Severe COPD exacerbation. Improving. Less wheezing today. We will continue bronchodilators, inhaled acetylcysteine and chest percussion therapy. Continue steroids. Moderate risk for complications (3) Acute bronchitis Current Visit: Yes Status: Acute Assessment and plan: With rhinovirus. On levofloxacin for treating superimposed bacterial infection. Will stop after tomorrow's dose. Qualifiers: Bronchitis organism: other organism Qualified Code(s): J20.8 - Acute bronchitis due to other specified organisms (4) HTN (hypertension) Current Visit: Yes Status: Chronic Assessment and plan: Continue amlodipine, losartan and metoprolol. Blood pressure is elevated this morning but has been well controlled through most of yesterday. We will continue current treatment regimen without any changes. Qualifiers: Hypertension type: essential hypertension Qualified Code(s): I10 - Essential (primary) hypertension (5) Obstructive sleep apnea Current Visit: Yes Status: Chronic Assessment and plan: BiPAP while lying down (6) Lactic acidosis Current Visit: Yes Status: Resolved (7) Obesity Current Visit: No Status: Chronic Qualifiers: Obesity type: unspecified obesity type Obesity classification: adult class 3 (BMI >= 40) Serious obesity comorbidity presence: unspecified whether serious comorbidity present Body mass index: BMI 40.0-44.9 Qualified Code(s) : E66.9 - Obesity, unspecified; Z68.41 - Body mass index (BMI) 40.0-44.9, adult ; Z68.41 - Body mass index (BMI) 40.0-44.9, adult; Z68.41 - Body mass index (BMI ) 40.0-44.9, adult; Z68.41 - Body mass index (BMI) 40.0-44.9, adult (8) CHF (congestive heart failure) Current Visit: Yes Status: Chronic Assessment and plan: Continue oral Lasix. Compensated at this time Qualifiers: Qualified Code(s): I50.32 - Chronic diastolic (congestive) heart failure (9) DVT prophylaxis Current Visit: Yes Status: Acute Assessment and plan: Continue subcutaneous heparin - Time Spent With Patient Total time spent is greater than 50% in coordination of care (as documented) at patient's floor/unit and/or counseling patient: - Subjective Interval history: Patient is feeling a little bit better today. Has been responding well to acetylcysteine and chest percussion therapy. Has been having increased expectoration of sputum and feels relief in chest congestion. Shortness of breath is improving. No chest pain. No fever or chills. - Constitutional Vitals: Temp Pulse Resp BP Pulse Ox 98.0 F 90 18 149/73 95 01/26/18 11:44 01/26/18 11:44 01/26/18 11:44 01/26/18 11:44 01/26/18 11:44 General appearance: Present: mild distress, A&O X 3, morbidly obese, answers questions appropriately - Neck Neck exam general surgery: Present: supple, trachea midline. Absent: lymphadenopathy - Respiratory Respiratory exam: Present: decreased breath sounds (Diminished breath sounds bilaterally), prolonged expiratory phase. Absent: accessory muscle use, rales, rhonchi, wheezes - Cardiovascular Cardiovascular exam: Present: RRR, +S1, +S2. Absent: diastolic murmur, gallop, rubs, systolic murmur - GI/Abdominal GI/Abdominal exam: Present: normal bowel sounds, soft, no peritoneal signs. Absent: distended, tenderness - Extremities Exam Extremities exam: Present: warm, radial pulses palpable and symmetrical. Absent : calf tenderness, cyanotic, pedal edema - Neurological Exam Neurological exam: Present: CN II-XII intact, oriented X3, no focal deficits. Absent: facial droop, speech deficit - Skin Skin exam: Present: dry, intact Internal Medicine: Result - Labs CBC & Chem 7: 01/24/18 05:38 01/24/18 05:38 Consult Discharge Plan - Plan Referrals: Jesus Machuca DO [Primary Care Provider] -
[2018-01-26] MEDS: Saline Nasal Spray 44 ML BOTTLE NS PRN (20:45)
[2018-01-26] MEDS: Psyllium 1 PACKET POWD.PACK PO SCH (20:46)
[2018-01-27] MEDS: Acetylcysteine 10% 2 ML INHSOL IH SCH ×3 (03:20→11:19)
[2018-01-27] MEDS: Ipratropium/Albuterol Neb 3 ML IH SCH ×3 (03:20→11:19)
[2018-01-27] MEDS: *HR* Heparin 5,000 UNIT/ML VIAL SQ SCH (05:52)
[2018-01-27] MEDS: Acetaminophen 325 MG TABLET PO PRN (05:54)
[2018-01-27] MEDS: Budesonide/Formoterol 160/4.5 MDI IH SCH (07:33)
[2018-01-27] MEDS: predniSONE 20 MG TABLET PO SCH (09:15)
[2018-01-27] MEDS: Fluticasone Propionate Nasal 50 MCG/SPRAY BOTTLE NS SCH (09:15)
[2018-01-27] MEDS: Azelastine 0.1% Nasal Spray 30 ML BOTTLE NS SCH (09:15)
[2018-01-27] MEDS: amLODIPine 5 MG TABLET PO SCH (09:15)
[2018-01-27] MEDS: Cholecalciferol (D-3) 1,000 UNIT TABLET PO SCH (09:16)
[2018-01-27] MEDS: Furosemide 40 MG TABLET PO SCH (09:16)
[2018-01-27] MEDS: Magnesium Oxide 400 MG TABLET PO SCH (09:16)
[2018-01-27] MEDS: levoFLOXacin 750 MG TABLET PO SCH (09:16)
[2018-01-27] MEDS: Aspirin 81 MG TAB.CHEW PO SCH (09:16)
[2018-01-27 11:10] VITALS: BP 135/74
--- NOTE | 2018-01-27 12:16 | Discharge Summary ---
- NOTES TO OUTPATIENT PROVIDER Notes to Outpatient Provider: Patient admitted with acute on chronic respiratory failure and acute COPD exacerbation due to rhinovirus infection. Date of Encounter: 01/27/18 Time of Encounter: 09:30 - Discharge Diagnosis (1) Acute on chronic respiratory failure Priority: Primary Status: Acute Qualifiers: Respiratory failure complication: hypoxia Qualified Code(s): J96.21 - Acute and chronic respiratory failure with hypoxia (2) Acute exacerbation of chronic obstructive airways disease Priority: Secondary Status: Acute (3) Acute bronchitis Priority: Secondary Status: Acute Qualifiers: Bronchitis organism: other organism Qualified Code(s): J20.8 - Acute bronchitis due to other specified organisms (4) HTN (hypertension) Priority: Secondary Status: Chronic Qualifiers: Hypertension type: essential hypertension Qualified Code(s): I10 - Essential (primary) hypertension (5) Obstructive sleep apnea Priority: Secondary Status: Chronic (6) Lactic acidosis Priority: Secondary Status: Resolved (7) Obesity Priority: Secondary Status: Chronic Qualifiers: Obesity type: unspecified obesity type Obesity classification: adult class 3 (BMI >= 40) Serious obesity comorbidity presence: unspecified whether serious comorbidity present Body mass index: BMI 40.0-44.9 Qualified Code(s) : E66.9 - Obesity, unspecified; Z68.41 - Body mass index (BMI) 40.0-44.9, adult ; Z68.41 - Body mass index (BMI) 40.0-44.9, adult; Z68.41 - Body mass index (BMI ) 40.0-44.9, adult; Z68.41 - Body mass index (BMI) 40.0-44.9, adult (8) DVT prophylaxis Priority: Secondary Status: Acute (9) Congestive heart failure Priority: Secondary Status: Chronic Qualifiers: Heart failure type: diastolic Heart failure chronicity: chronic Qualified Code(s): I50.32 - Chronic diastolic (congestive) heart failure Hospital course: Mr. Herring is a 62 year old male patient with history of congestive heart failure, COPD who was hospitalized here with acute COPD exacerbation and acute on chronic respiratory failure. His respiratory infection panel was positive for rhinovirus. He was treated with intravenous steroids, bronchodilators and Levaquin to treat superimposed bacterial infection. His symptoms have slowly improved since then. He is now feeling much better and wishes to go home. He will be discharged on a prednisone taper and will follow up with pulmonology for further management. Discharge discussed with: patient, nurse, case management - Time Spent with Patient Total time spent providing and/or coordinating discharge services: Greater than 30 minutes (40 min) - Discharge Medications Prescriptions: predniSONE [PredniSONE] 10 mg PO DAILY #20 tablet Home Medications: Albuterol Sulfate [Albuterol Inhaler] 2 puff IH Q4HR PRN 03/16/16 [History] Azelastine 0.1% Nasal [place] [Astelin] 1 spray NS BID 03/16/16 [History] Budesonide/Formoterol 160/4.5 [Symbicort 160/4.5] 2 puff IH BIDR 03/16/16 [ History] Ergocalciferol (VITAMIN D2) [Vitamin D] 400 unit PO DAILY 03/16/16 [History] Esomeprazole Magnesium [Nexium] 40 mg PO BID 03/16/16 [History] Fluticasone Propionate Nasal [Flonase] 2 spray NS DAILY 03/16/16 [History] Ketoconazole Shampoo [Nizoral Shampoo] 1 appl TP 3XW 03/16/16 [History] Psyllium Seed (with Sugar) [Metamucil Powder] 1 each PO HS 03/16/16 [History] Roflumilast [Daliresp] 500 mcg PO DAILY 03/16/16 [History] Sodium Chloride [[place] Saline] 1 spray NS BID PRN 03/16/16 [History] Umeclidinium [place] [Incruse Ellipta] 1 puff IH DAILY 11/03/16 [History] Oxygen 3 l .ROUTE AD 11/20/16 [History] Losartan [Cozaar] 25 mg PO DAILY #30 tablet 12/10/16 [Rx] Cetirizine HCl [Zyrtec] 10 mg PO DAILY PRN #0 01/27/17 [Rx] Magnesium Oxide [Mag-Ox] 400 mg PO DAILY #15 tablet 01/27/17 [Rx] Potassium Chloride 20 meq PO DAILY #15 tab.er.prt 01/27/17 [Rx] Metoprolol [Lopressor] 25 mg PO BID 07/05/17 [History] Acetaminophen [Tylenol] 1,000 mg PO BID PRN 09/22/17 [History] Aspirin 81 mg PO DAILY 09/22/17 [History] Docusate Sodium [Dok] 600 mg PO QPM 09/22/17 [History] Guaifenesin [Mucinex] 400 mg PO Q12H PRN 09/22/17 [History] Ipratropium/Albuterol Neb [Duoneb] 3 ml IH Q4H PRN 09/22/17 [History] Ondansetron HCl [Zofran] 4 mg PO Q4H PRN 09/22/17 [History] clonazePAM [Klonopin] 0.5 mg PO TID PRN 09/22/17 [History] Furosemide [Lasix] 40 mg PO BID 09/27/17 [History] Amlodipine Besylate 10 mg PO DAILY 01/23/18 [History] Docusate Sodium [Stool Softener] 100 mg PO BID 01/23/18 [History] Metoclopramide HCl 10 mg PO ACHS 01/23/18 [History] Polyethylene Glycol [Polyox Wsr-301] 17 gm PO DAILY 01/23/18 [History] predniSONE [PredniSONE] 5 mg PO DAILY #0 01/27/18 [Rx] predniSONE [PredniSONE] 10 mg PO DAILY #20 tablet 01/27/18 [Rx] Allergies/Adverse Reactions: 3 Allergy/AdvReac Type Severity Reaction Status Date / Time morphine Allergy Difficulty Verified 12/22/17 10:39 Breathing sulfamethoxazole Allergy Hives Verified 12/22/17 10:39 [From Bactrim] trimethoprim [From Bactrim] Allergy Hives Verified 12/22/17 10:39 codeine AdvReac Nausea Verified 12/22/17 10:39 Date of admission: 01/23/18 01:06 Primary care physician: Jesus Machuca DO Discharging clinician: Andrea Singh Anticipated date of discharge: 01/27/18 - Constitutional Vitals: Temp Pulse Resp BP Pulse Ox 97.8 F 82 16 135/74 95 01/27/18 11:05 01/27/18 11:05 01/27/18 11:19 01/27/18 11:05 01/27/18 11:19 General appearance: Present: mild distress, A&O X 3, morbidly obese, answers questions appropriately - Respiratory Respiratory exam: Present: CTAB. Absent: accessory muscle use, rales, rhonchi, wheezes - Cardiovascular Cardiovascular exam: Present: RRR, +S1, +S2. Absent: diastolic murmur, gallop, rubs, systolic murmur - GI/Abdominal GI/Abdominal exam: Present: normal bowel sounds, soft, no peritoneal signs. Absent: distended, tenderness - Extremities Exam Extremities exam: Present: warm, radial pulses palpable and symmetrical. Absent : calf tenderness, cyanotic, pedal edema - Neurological Exam Neurological exam: Present: alert, oriented X3, no focal deficits. Absent: facial droop, speech deficit - Skin Skin exam: Present: dry, intact - Patient Status Disposition: Home Health Service Condition: Good Functional capacity at discharge: independent ambulation Overall status at discharge: patient is progressing back to baseline - Discharge Instructions Instructions: Heart Failure (DC), Acute Respiratory Distress Syndrome (DC), Chronic Obstructive Pulmonary Disease (DC), Chronic Hypertension (DC) Follow Up With: Jesus Machuca DO [Primary Care Provider] - 01/31/18 4:00 pm () Morelia Pierson MD [Partnered Physician] - (Please follow up as normal with your 4month check up unless office calls you with an earlier appointment date and time.) - Diet and Activity Activity: increase activity as tolerated, wear oxygen at all times Diet: diabetic diet, low fat, low cholesterol, low salt diet
--- NOTE | 2018-01-27 12:28 | Electrocardiograph Report ---
[place] [id number] Test Date: 2018-01-22 Pat Name: Don Herring Department: 103 Room: [facility] Gender: M Manager Of Health: ANGELINA : 1955 Requested By: [id number] Order Number: [id number] Reading MD: Erasto Gorman Measurements Intervals [place] Rate: 93 P: 82 SC: 171 QRS: 32 QRSD: 91 T: 58 QT: 339 QTc: 390 Interpretive Statements SINUS RHYTHM Electronically Signed On 01-27-2018 12:26:04 EDT by Erasto Gorman
--- NOTE | 2018-01-27 12:31 | Physician Discharge Referral ---
Home Health/Hosp Referral Info Transfer to: Home Health Provider in Charge Post Discharge: PCP - Diagnosis (1) Acute on chronic respiratory failure Priority: Primary Status: Acute (2) Acute exacerbation of chronic obstructive airways disease Priority: Secondary Status: Acute (3) Acute bronchitis Priority: Secondary Status: Acute (4) HTN (hypertension) Priority: Secondary Status: Chronic (5) Obstructive sleep apnea Priority: Secondary Status: Chronic (6) Lactic acidosis Priority: Secondary Status: Resolved (7) Obesity Priority: Secondary Status: Chronic (8) CHF (congestive heart failure) Priority: Secondary Status: Chronic (9) DVT prophylaxis Priority: Secondary Status: Acute - Respiratory Orders Oxygen / L per min (3) Smoking Cessation: Smoking cessation has been advised. For more information, call the [place] Tobacco Quit Line at 5-915-MLHY-NOW. - Diet/Nutrition Diet/Nutrition Orders: Cardiac, No Concentrated Sweets (diabetic) - Activity Activity Orders: Walker - Services Needed Following services are medically necessary services: Nursing, Home Health Aide, Physical Therapy, Occupational Therapy - Transfer Medications Prescriptions: predniSONE [PredniSONE] 10 mg PO DAILY #20 tablet Home Medications: Albuterol Sulfate [Albuterol Inhaler] 2 puff IH Q4HR PRN 03/16/16 [History] Azelastine 0.1% Nasal [place] [Astelin] 1 spray NS BID 03/16/16 [History] Budesonide/Formoterol 160/4.5 [Symbicort 160/4.5] 2 puff IH BIDR 03/16/16 [ History] Ergocalciferol (VITAMIN D2) [Vitamin D] 400 unit PO DAILY 03/16/16 [History] Esomeprazole Magnesium [Nexium] 40 mg PO BID 03/16/16 [History] Fluticasone Propionate Nasal [Flonase] 2 spray NS DAILY 03/16/16 [History] Ketoconazole Shampoo [Nizoral Shampoo] 1 appl TP 3XW 03/16/16 [History] Psyllium Seed (with Sugar) [Metamucil Powder] 1 each PO HS 03/16/16 [History] Roflumilast [Daliresp] 500 mcg PO DAILY 03/16/16 [History] Sodium Chloride [[place] Saline] 1 spray NS BID PRN 03/16/16 [History] Umeclidinium [place] [Incruse Ellipta] 1 puff IH DAILY 01/25/17 [History] Oxygen 3 l .ROUTE AD 11/20/16 [History] Losartan [Cozaar] 25 mg PO DAILY #30 tablet 12/10/16 [Rx] Cetirizine HCl [Zyrtec] 10 mg PO DAILY PRN #0 01/27/17 [Rx] Magnesium Oxide [Mag-Ox] 400 mg PO DAILY #15 tablet 01/27/17 [Rx] Potassium Chloride 20 meq PO DAILY #15 tab.er.prt 01/27/17 [Rx] Metoprolol [Lopressor] 25 mg PO BID 07/05/17 [History] Acetaminophen [Tylenol] 1,000 mg PO BID PRN 09/22/17 [History] Aspirin 81 mg PO DAILY 09/22/17 [History] Docusate Sodium [Dok] 600 mg PO QPM 09/22/17 [History] Guaifenesin [Mucinex] 400 mg PO Q12H PRN 09/22/17 [History] Ipratropium/Albuterol Neb [Duoneb] 3 ml IH Q4H PRN 09/22/17 [History] Ondansetron HCl [Zofran] 4 mg PO Q4H PRN 09/22/17 [History] clonazePAM [Klonopin] 0.5 mg PO TID PRN 09/22/17 [History] Furosemide [Lasix] 40 mg PO BID 09/27/17 [History] Amlodipine Besylate 10 mg PO DAILY 01/23/18 [History] Docusate Sodium [Stool Softener] 100 mg PO BID 01/23/18 [History] Metoclopramide HCl 10 mg PO ACHS 01/23/18 [History] Polyethylene Glycol [Polyox Wsr-301] 17 gm PO DAILY 01/23/18 [History] predniSONE [PredniSONE] 5 mg PO DAILY #0 01/27/18 [Rx] predniSONE [PredniSONE] 10 mg PO DAILY #20 tablet 01/27/18 [Rx] Allergies/Adverse Reactions: 3 Allergy/AdvReac Type Severity Reaction Status Date / Time morphine Allergy Difficulty Verified 12/22/17 10:39 Breathing sulfamethoxazole Allergy Hives Verified 12/22/17 10:39 [From Bactrim] trimethoprim [From Bactrim] Allergy Hives Verified 12/22/17 10:39 codeine AdvReac Nausea Verified 12/22/17 10:39 Certification: Further, I certify that my clinical findings support that this patient is homebound (i.e. absences from home require considerable and taxing effort and are for medical reasons or restoration services or infrequently or short duration when for other reasons) because: Homebound Reason: Patient requires assistance of a person or device to safely leave home, Severity of cardiac or pulmonary status limits activity tolerance Attestation: My signature below is to certify that this patient is under my care and that I, or nurse practitioner, or a physician's clinical lab assistant working with me, has a face-to -face encounter with this patient.
== END 2018-01-27 13:48 | disposition home health service (06) | DRG 190 ==
LOC: EMEROO 21:09 → 2ANU 01-23 01:06 → SUATTDRO 01-23 01:06 → 2ANU 01-23 01:42
PROVIDERS: ADMIT Internal Medicine; ATTEND Internal Medicine

== ENCOUNTER 2019-12-20 22:06 | Inpatient (IN) ==
[2019-12-20] MEDS ORDERED: Ipratropium/Albuterol Neb 3 ML IH ONE (22:08)
[2019-12-20] MEDS ORDERED: methylPREDNISolone 125 MG/2 ML VIAL IVP ONE (22:08)
[2019-12-20 22:40] LABS: Basophils # 0.1 K/mcL (0.0-0.2); Basophils % 0.6 %; Eosinophils # 0.3 K/mcL (0.0-0.6); Eosinophils % 1.6 %; Hemoglobin 10.8 g/dL (12.9-16.9); Immature Granulocytes % 1.2 % (0-4); Lymphocytes # 1.8 K/mcL (0.6-4.6); Lymphocytes % 11.4 %; Mean Corpuscular HGB Conc 29.2 g/dL (31.6-35.5); Mean Corpuscular Hemoglobin 22.6 pg (28.0-33.3); Mean Corpuscular Volume 77.6 fL (83.0-100.0); Mean Platelet Volume 8.6 fL (9.4-12.4); Monocytes % 6.1 %; Neutrophils # 12.6 K/mcL (1.6-8.9); Platelet Count 428 K/mcL (140-400); Red Blood Count 4.77 M/mcL (4.19-5.50); Red Cell Distribution Width 17.3 % (11.5-14.5); Segmented Neutrophils % 79.1 %; White Blood Count 15.9 K/mcL (4.3-11.1)
[2019-12-20 23:00] LABS: BUN/Creatinine Ratio 13 (6-26); Blood Urea Nitrogen 15 mg/dL (8-23); Calcium 9.2 mg/dL (8.6-10.3); Carbon Dioxide 23 mEq/L (23-29); Chloride 102 mEq/L (98-107); Glucose 234 mg/dL (70-105); Osmolality,Calculated 286 (280-300); Potassium 3.6 mEq/L (3.5-5.1); Sodium 134 mEq/L (136-145); eGFR For African Americans > 60 (> 60); eGFR For Non-African Americans > 60 (> 60)
[2019-12-20] MEDS ORDERED: Azithromycin 500 MG in D5% in Water 250 ML IVPB ONE (23:37)
[2019-12-20] MEDS ORDERED: cefTRIAXone 1,000 MG in Water for inj. (sterile) 10 ML IVP ONE (23:37)
[2019-12-21] MEDS ORDERED: *HR* LORazepam 2 MG/ML VIAL IVP ONE (00:06)
[2019-12-21] MEDS ORDERED: 0.9 % Sodium Chloride 1,000 ML IVC ONE ×2 (00:15→15:38)
[2019-12-21] MEDS: Ipratropium/Albuterol Neb 3 ML IH SCH ×6 (03:37→23:03)
[2019-12-21 04:45] LABS: Adenovirus Not Detected (Not Detect); Bordetella Pertussis Not Detected (Not Detect); Chlamydophila pneumoniae Not Detected (Not Detect); Coronavirus 229E DETECTED (Not Detect); Coronavirus HKU1 Not Detected (Not Detect); Coronavirus NL63 Not Detected (Not Detect); Coronavirus OC43 Not Detected (Not Detect); Human Metapneumovirus Not Detected (Not Detect); Human Rhinovirus/Enterovirus Not Detected (Not Detect); Influenza A Subtype 2009 H1 Not Detected (Not Detect); Influenza B Not Detected (Not Detect); Mycoplasma pneumoniae Not Detected (Not Detect); Parainfluenza Virus 1 Not Detected (Not Detect); Parainfluenza Virus 2 Not Detected (Not Detect); Parainfluenza Virus 3 Not Detected (Not Detect); Parainfluenza Virus 4 Not Detected (Not Detect); Respiratory Syncytial Virus Not Detected (Not Detect)
[2019-12-21] MEDS ORDERED: 0.9 % Sodium Chloride 500 ML IV ONE (05:48)
[2019-12-21] MEDS: *HR* Heparin 5,000 UNIT/ML VIAL SQ SCH ×3 (06:16→22:21)
[2019-12-21] MEDS: MethylPREDNISolone 40 MG/ML VIAL IVP SCH ×3 (06:16→18:45)
[2019-12-21] MEDS ORDERED: clonazePAM 0.5 MG TABLET PO PRN (09:06)
[2019-12-21 10:14] LABS: Basophils % 0.2 %; Hematocrit 33.7 % (37.5-50.1); Hemoglobin 9.9 g/dL (12.9-16.9); Immature Granulocytes % 1.7 % (0-4); Lymphocytes # 0.8 K/mcL (0.6-4.6); Lymphocytes % 5.6 %; Mean Corpuscular HGB Conc 29.4 g/dL (31.6-35.5); Mean Corpuscular Hemoglobin 22.8 pg (28.0-33.3); Mean Corpuscular Volume 77.5 fL (83.0-100.0); Mean Platelet Volume 8.5 fL (9.4-12.4); Monocytes # 0.2 K/mcL (0.0-1.3); Monocytes % 1.7 %; Platelet Count 390 K/mcL (140-400); Red Blood Count 4.35 M/mcL (4.19-5.50); Red Cell Distribution Width 17.2 % (11.5-14.5); Segmented Neutrophils % 90.8 %; White Blood Count 14.3 K/mcL (4.3-11.1)
[2019-12-21 10:34] LABS: Magnesium 1.8 mg/dL (1.6-2.6); Troponin I < 0.03 ng/mL (< 0.04)
[2019-12-21 10:40] LABS: VBG HCO3 25 mEq/L (21-27); VBG PCO2 41 mmHg (41-51); VBG PH 7.39 pH Units (7.32-7.42); VBG PO2 194 mmHg (25-50)
[2019-12-21 10:41] LABS: Alanine Aminotransferase 14 Units/L (7-52); Albumin 3.6 g/dL (3.5-5.7); Albumin/Globulin Ratio 1.2 (1.1-2.2); Alkaline Phosphatase 76 Units/L (34-104); Aspartate Amino Transferase 11 Units/L (13-39); BUN/Creatinine Ratio 14 (6-26); Bilirubin,Direct 0.1 mg/dL (0.0-0.2); Bilirubin,Indirect 0.1 mg/dL (0.0-1.0); Bilirubin,Total 0.2 mg/dL (0.3-1.0); Blood Urea Nitrogen 14 mg/dL (8-23); Calcium 8.7 mg/dL (8.6-10.3); Carbon Dioxide 23 mEq/L (23-29); Chloride 104 mEq/L (98-107); Glucose 253 mg/dL (70-105); Osmolality,Calculated 291 (280-300); Potassium 4.8 mEq/L (3.5-5.1); Sodium 136 mEq/L (136-145); Total Protein 6.6 g/dL (6.4-8.9); eGFR For African Americans > 60 (> 60); eGFR For Non-African Americans > 60 (> 60)
[2019-12-21] MEDS: 0.9 % Sodium Chloride 1,000 ML IVC SCH (10:56)
[2019-12-21] MEDS ORDERED: *HR* Dextrose 50 % in Water (Syg) 50 ML SYRINGE IVP PRN (11:36)
[2019-12-21] MEDS ORDERED: D5% in Water 1,000 ML IVC PRN (11:36)
[2019-12-21] MEDS ORDERED: Dextrose Gel 15 GM/37.5 ML TUBE PO PRN ×2 (11:36)
[2019-12-21] MEDS ORDERED: Perflutren Lipid Microsphere 1.3 ML in 0.9 % Sodium Chloride 8.7 ML IVP ONE (15:55)
[2019-12-21] MEDS: Insulin LISPRO 300 UNITS/3 ML VIAL SQ SCH ×2 (16:15→22:22)
[2019-12-21] MEDS ORDERED: cefTRIAXone 1,000 MG in 0.9 % Sodium Chloride Mini Bag 100 ML IVPB SCH ×2 (18:00→21:00)
[2019-12-21] MEDS ORDERED: Azithromycin 500 MG in 0.9 % Sodium Chloride 250 ML IVPB SCH (18:00)
[2019-12-21] MEDS: rOPINIRole 0.25 MG TABLET PO SCH (22:20)
[2019-12-21] MEDS: cefTRIAXone 1,000 MG in Water for inj. (sterile) 10 ML IVPB SCH (22:20)
[2019-12-21] MEDS: Azithromycin 500 MG in 0.9 % Sodium Chloride 250 ML IVPB SCH (22:22)
[2019-12-21] MEDS: Budesonide/Formoterol 160/4.5 1 PUFF INH IH SCH (23:22)
[2019-12-22] MEDS: MethylPREDNISolone 40 MG/ML VIAL IVP SCH ×4 (00:44→23:28)
[2019-12-22] MEDS: clonazePAM 0.5 MG TABLET PO PRN ×2 (01:30→20:59)
[2019-12-22 03:14] LABS: Basophils % 0.2 %; Hemoglobin 9.8 g/dL (12.9-16.9); Red Cell Distribution Width 17.3 % (11.5-14.5)
[2019-12-22 03:15] LABS: Hematocrit 33.4 % (37.5-50.1); Lymphocytes # 0.8 K/mcL (0.6-4.6); Lymphocytes % 4.8 %; Mean Corpuscular HGB Conc 29.3 g/dL (31.6-35.5); Mean Corpuscular Hemoglobin 23.4 pg (28.0-33.3); Mean Corpuscular Volume 79.9 fL (83.0-100.0); Mean Platelet Volume 8.9 fL (9.4-12.4); Monocytes # 0.8 K/mcL (0.0-1.3); Monocytes % 4.9 %; Neutrophils # 14.6 K/mcL (1.6-8.9); Platelet Count 360 K/mcL (140-400); Red Blood Count 4.18 M/mcL (4.19-5.50); Segmented Neutrophils % 89.1 %; White Blood Count 16.4 K/mcL (4.3-11.1)
[2019-12-22 03:34] LABS: BUN/Creatinine Ratio 16 (6-26); Blood Urea Nitrogen 19 mg/dL (8-23); Calcium 8.5 mg/dL (8.6-10.3); Carbon Dioxide 20 mEq/L (23-29); Chloride 106 mEq/L (98-107); Glucose 324 mg/dL (70-105); Magnesium 1.9 mg/dL (1.6-2.6); Osmolality,Calculated 295 (280-300); Potassium 4.7 mEq/L (3.5-5.1); Sodium 135 mEq/L (136-145); eGFR For African Americans > 60 (> 60); eGFR For Non-African Americans > 60 (> 60)
[2019-12-22 03:43] LABS: Hypochromasia Present (Not Present); Platelet Estimate Normal (Normal)
[2019-12-22] MEDS: Ipratropium/Albuterol Neb 3 ML IH SCH ×5 (03:49→23:46)
[2019-12-22] MEDS: *HR* Heparin 5,000 UNIT/ML VIAL SQ SCH ×3 (05:26→20:58)
[2019-12-22] MEDS: 0.9 % Sodium Chloride 1,000 ML IVC SCH (06:34)
[2019-12-22] MEDS: Budesonide/Formoterol 160/4.5 1 PUFF INH IH SCH ×2 (07:13→19:54)
[2019-12-22] MEDS: Tiotropium 18 MCG inhalation IH SCH (07:16)
[2019-12-22] MEDS ORDERED: amLODIPine 5 MG TABLET PO SCH (09:00)
[2019-12-22] MEDS ORDERED: NON-FORMULARY MEDICATION 1 EACH EACH (Roflumilast [Daliresp] 500 MCG) PO SCH (09:00)
[2019-12-22] MEDS ORDERED: Furosemide 40 MG/4 ML VIAL ONE (10:03)
[2019-12-22] MEDS ORDERED: Ipratropium/Albuterol Neb 3 ML ONE ×2 (11:00→15:02)
[2019-12-22] MEDS ORDERED: clonazePAM 0.5 MG TABLET ONE (11:00)
[2019-12-22] MEDS ORDERED: MethylPREDNISolone 40 MG/ML VIAL ONE (11:00)
[2019-12-22] MEDS ORDERED: *HR* Heparin 5,000 UNIT/ML VIAL ONE (11:00)
[2019-12-22] MEDS ORDERED: *HR* LORazepam 2 MG/ML VIAL ONE (11:49)
[2019-12-22] MEDS ORDERED: *HR* LORazepam 2 MG/ML VIAL IVP PRN (15:02)
[2019-12-22] MEDS ORDERED: Saline Nasal Spray 44 ML BOTTLE NS PRN (16:36)
[2019-12-22] MEDS: Insulin LISPRO 300 UNITS/3 ML VIAL SQ SCH ×3 (16:47→21:00)
[2019-12-22] MEDS: Insulin DETEMIR 100 UNIT/ML X5UNITS SQ SCH (16:48)
[2019-12-22] MEDS: Furosemide 40 MG/4 ML VIAL IVP SCH ×2 (16:48→20:58)
[2019-12-22] MEDS: Azithromycin 500 MG in 0.9 % Sodium Chloride 250 ML IVPB SCH (20:57)
[2019-12-22] MEDS: rOPINIRole 0.25 MG TABLET PO SCH (20:59)
[2019-12-22] MEDS: Psyllium 1 PACKET POWD.PACK PO SCH (21:01)
[2019-12-22] MEDS: cefTRIAXone 1,000 MG in Water for inj. (sterile) 10 ML IVPB SCH (23:28)
[2019-12-23 01:17] LABS: Basophils # 0.1 K/mcL (0.0-0.2); Basophils % 0.3 %; Eosinophils % 0.2 %; Hematocrit 32.8 % (37.5-50.1); Hemoglobin 9.6 g/dL (12.9-16.9); Immature Granulocytes % 1.6 % (0-4); Lymphocytes # 1.7 K/mcL (0.6-4.6); Mean Corpuscular HGB Conc 29.3 g/dL (31.6-35.5); Mean Corpuscular Hemoglobin 22.9 pg (28.0-33.3); Mean Corpuscular Volume 78.3 fL (83.0-100.0); Mean Platelet Volume 9.2 fL (9.4-12.4); Monocytes # 1.3 K/mcL (0.0-1.3); Monocytes % 7.7 %; Neutrophils # 13.7 K/mcL (1.6-8.9); Nucleated Red Blood Cells 0.2 /100 WBC (0); Platelet Count 380 K/mcL (140-400); Red Blood Count 4.19 M/mcL (4.19-5.50); Red Cell Distribution Width 17.6 % (11.5-14.5); Segmented Neutrophils % 80.2 %
[2019-12-23 01:34] LABS: BUN/Creatinine Ratio 18 (6-26); Blood Urea Nitrogen 23 mg/dL (8-23); Calcium 8.8 mg/dL (8.6-10.3); Carbon Dioxide 26 mEq/L (23-29); Chloride 103 mEq/L (98-107); Glucose 242 mg/dL (70-105); Osmolality,Calculated 292 (280-300); Potassium 4.1 mEq/L (3.5-5.1); Sodium 135 mEq/L (136-145); eGFR For African Americans > 60 (> 60); eGFR For Non-African Americans 58 (> 60)
[2019-12-23] MEDS: Ipratropium/Albuterol Neb 3 ML IH SCH ×5 (04:09→19:57)
[2019-12-23] MEDS: *HR* Heparin 5,000 UNIT/ML VIAL SQ SCH ×3 (05:22→21:15)
[2019-12-23] MEDS: Insulin DETEMIR 100 UNIT/ML X5UNITS SQ SCH (08:04)
[2019-12-23] MEDS: MethylPREDNISolone 40 MG/ML VIAL IVP SCH (08:04)
[2019-12-23] MEDS: Furosemide 40 MG/4 ML VIAL IVP SCH ×2 (08:04→20:39)
[2019-12-23] MEDS: clonazePAM 0.5 MG TABLET PO PRN (08:05)
[2019-12-23] MEDS: Budesonide/Formoterol 160/4.5 1 PUFF INH IH SCH ×2 (08:06→19:57)
[2019-12-23] MEDS: Insulin LISPRO 300 UNITS/3 ML VIAL SQ SCH ×4 (08:06→20:45)
[2019-12-23] MEDS: Tiotropium 18 MCG inhalation IH SCH (08:07)
[2019-12-23] MEDS ORDERED: Acetaminophen 325 MG TABLET PO PRN (09:44)
[2019-12-23] MEDS: predniSONE 20 MG TABLET PO SCH (15:12)
[2019-12-23] MEDS: rOPINIRole 0.25 MG TABLET PO SCH (20:38)
[2019-12-23] MEDS: Psyllium 1 PACKET POWD.PACK PO SCH (20:38)
[2019-12-23] MEDS: Azithromycin 250 MG TABLET PO SCH (20:40)
[2019-12-24 02:55] LABS: Basophils % 0.3 %; Eosinophils % 0.1 %; Hematocrit 32.8 % (37.5-50.1); Hemoglobin 9.6 g/dL (12.9-16.9); Immature Granulocytes % 2.1 % (0-4); Lymphocytes # 1.4 K/mcL (0.6-4.6); Lymphocytes % 10.3 %; Mean Corpuscular HGB Conc 29.3 g/dL (31.6-35.5); Mean Corpuscular Hemoglobin 22.8 pg (28.0-33.3); Mean Corpuscular Volume 77.9 fL (83.0-100.0); Monocytes # 1.2 K/mcL (0.0-1.3); Monocytes % 8.8 %; Nucleated Red Blood Cells 0.1 /100 WBC (0); Platelet Count 425 K/mcL (140-400); Red Blood Count 4.21 M/mcL (4.19-5.50); Red Cell Distribution Width 17.2 % (11.5-14.5); Segmented Neutrophils % 78.4 %
[2019-12-24 03:16] LABS: BUN/Creatinine Ratio 27 (6-26); Blood Urea Nitrogen 32 mg/dL (8-23); Calcium 9.3 mg/dL (8.6-10.3); Carbon Dioxide 29 mEq/L (23-29); Chloride 100 mEq/L (98-107); Glucose 298 mg/dL (70-105); Osmolality,Calculated 302 (280-300); Potassium 4.5 mEq/L (3.5-5.1); Sodium 137 mEq/L (136-145); eGFR For African Americans > 60 (> 60); eGFR For Non-African Americans > 60 (> 60)
[2019-12-24] MEDS: Ipratropium/Albuterol Neb 3 ML IH SCH ×7 (03:44→23:52)
[2019-12-24] MEDS: *HR* Heparin 5,000 UNIT/ML VIAL SQ SCH ×3 (06:14→21:00)
[2019-12-24] MEDS: Tiotropium 18 MCG inhalation IH SCH (08:03)
[2019-12-24] MEDS: Insulin LISPRO 300 UNITS/3 ML VIAL SQ SCH ×4 (08:20→21:12)
[2019-12-24] MEDS: Insulin DETEMIR 100 UNIT/ML X5UNITS SQ SCH ×2 (08:21→21:12)
[2019-12-24] MEDS: Furosemide 40 MG/4 ML VIAL IVP SCH ×2 (08:21→20:59)
[2019-12-24] MEDS: predniSONE 20 MG TABLET PO SCH (08:22)
[2019-12-24] MEDS ORDERED: Furosemide 40 MG/4 ML VIAL IVP SCH (09:00)
[2019-12-24] MEDS: Budesonide/Formoterol 160/4.5 1 PUFF INH IH SCH ×3 (12:04→20:08)
[2019-12-24] MEDS: rOPINIRole 0.25 MG TABLET PO SCH (21:00)
[2019-12-24] MEDS: Azithromycin 250 MG TABLET PO SCH (21:00)
[2019-12-24] MEDS: Psyllium 1 PACKET POWD.PACK PO SCH (21:01)
[2019-12-25] MEDS: 0.9 % Sodium Chloride 1,000 ML IVC SCH (01:56)
[2019-12-25] MEDS: Ipratropium/Albuterol Neb 3 ML IH SCH ×5 (03:35→20:40)
[2019-12-25 04:47] LABS: Basophils # 0.1 K/mcL (0.0-0.2); Basophils % 0.5 %; Eosinophils # 0.2 K/mcL (0.0-0.6); Eosinophils % 1.2 %; Hematocrit 34.7 % (37.5-50.1); Hemoglobin 10.2 g/dL (12.9-16.9); Immature Granulocytes % 2.3 % (0-4); Lymphocytes # 3.2 K/mcL (0.6-4.6); Lymphocytes % 23.1 %; Mean Corpuscular HGB Conc 29.4 g/dL (31.6-35.5); Mean Corpuscular Hemoglobin 22.9 pg (28.0-33.3); Mean Corpuscular Volume 77.8 fL (83.0-100.0); Mean Platelet Volume 8.7 fL (9.4-12.4); Monocytes % 7.4 %; Platelet Count 413 K/mcL (140-400); Red Blood Count 4.46 M/mcL (4.19-5.50); Red Cell Distribution Width 17.2 % (11.5-14.5); Segmented Neutrophils % 65.5 %; White Blood Count 13.7 K/mcL (4.3-11.1)
[2019-12-25 05:10] LABS: BUN/Creatinine Ratio 32 (6-26); Blood Urea Nitrogen 34 mg/dL (8-23); Calcium 9.1 mg/dL (8.6-10.3); Carbon Dioxide 29 mEq/L (23-29); Chloride 101 mEq/L (98-107); Glucose 131 mg/dL (70-105); Osmolality,Calculated 295 (280-300); Potassium 3.5 mEq/L (3.5-5.1); Sodium 138 mEq/L (136-145); eGFR For African Americans > 60 (> 60); eGFR For Non-African Americans > 60 (> 60)
[2019-12-25] MEDS: *HR* Heparin 5,000 UNIT/ML VIAL SQ SCH ×3 (05:22→21:56)
[2019-12-25] MEDS: Budesonide/Formoterol 160/4.5 1 PUFF INH IH SCH ×2 (07:43→20:39)
[2019-12-25] MEDS: Furosemide 40 MG/4 ML VIAL IVP SCH ×2 (07:59→19:52)
[2019-12-25] MEDS: predniSONE 20 MG TABLET PO SCH (07:59)
[2019-12-25] MEDS: Insulin LISPRO 300 UNITS/3 ML VIAL SQ SCH ×4 (08:00→21:57)
[2019-12-25] MEDS: Insulin DETEMIR 100 UNIT/ML X5UNITS SQ SCH ×2 (08:02→21:57)
[2019-12-25] MEDS: clonazePAM 0.5 MG TABLET PO PRN (18:27)
[2019-12-25] MEDS: Psyllium 1 PACKET POWD.PACK PO SCH (19:51)
[2019-12-25] MEDS: rOPINIRole 0.25 MG TABLET PO SCH (19:51)
[2019-12-25] MEDS: Azithromycin 250 MG TABLET PO SCH (19:51)
[2019-12-26] MEDS: Ipratropium/Albuterol Neb 3 ML IH SCH ×7 (00:29→23:37)
[2019-12-26] MEDS: *HR* Heparin 5,000 UNIT/ML VIAL SQ SCH ×3 (05:20→21:00)
[2019-12-26] MEDS: predniSONE 20 MG TABLET PO SCH (08:19)
[2019-12-26] MEDS: Insulin DETEMIR 100 UNIT/ML X5UNITS SQ SCH ×2 (08:19→20:54)
[2019-12-26] MEDS: Furosemide 40 MG/4 ML VIAL IVP SCH (08:21)
[2019-12-26] MEDS: Insulin LISPRO 300 UNITS/3 ML VIAL SQ SCH ×4 (08:21→20:55)
[2019-12-26 08:27] LABS: Basophils # 0.1 K/mcL (0.0-0.2); Basophils % 0.6 %; Eosinophils # 0.3 K/mcL (0.0-0.6); Eosinophils % 1.9 %; Hematocrit 36.4 % (37.5-50.1); Hemoglobin 10.6 g/dL (12.9-16.9); Immature Granulocytes % 2.2 % (0-4); Lymphocytes # 2.9 K/mcL (0.6-4.6); Lymphocytes % 20.5 %; Mean Corpuscular HGB Conc 29.1 g/dL (31.6-35.5); Mean Corpuscular Hemoglobin 22.8 pg (28.0-33.3); Mean Corpuscular Volume 78.3 fL (83.0-100.0); Mean Platelet Volume 8.6 fL (9.4-12.4); Monocytes # 0.8 K/mcL (0.0-1.3); Monocytes % 5.6 %; Neutrophils # 9.6 K/mcL (1.6-8.9); Platelet Count 377 K/mcL (140-400); Red Blood Count 4.65 M/mcL (4.19-5.50); Red Cell Distribution Width 17.2 % (11.5-14.5); Segmented Neutrophils % 69.2 %; White Blood Count 13.9 K/mcL (4.3-11.1)
[2019-12-26 08:39] LABS: BUN/Creatinine Ratio 30 (6-26); Blood Urea Nitrogen 33 mg/dL (8-23); Calcium 8.7 mg/dL (8.6-10.3); Carbon Dioxide 29 mEq/L (23-29); Chloride 102 mEq/L (98-107); Glucose 155 mg/dL (70-105); Osmolality,Calculated 294 (280-300); Potassium 3.5 mEq/L (3.5-5.1); Sodium 137 mEq/L (136-145); eGFR For African Americans > 60 (> 60); eGFR For Non-African Americans > 60 (> 60)
[2019-12-26] MEDS ORDERED: Ipratropium/Albuterol Neb 3 ML IH ONE (09:52)
[2019-12-26] MEDS: Budesonide/Formoterol 160/4.5 1 PUFF INH IH SCH ×2 (10:58→19:37)
[2019-12-26] MEDS ORDERED: metOLazone 2.5 MG TABLET PO SCH ×3 (12:45→20:00)
[2019-12-26] MEDS: Fluticasone Propionate Nasal 50 MCG/SPRAY BOTTLE NS SCH (16:21)
[2019-12-26] MEDS: clonazePAM 0.5 MG TABLET PO PRN (18:44)
[2019-12-26] MEDS: rOPINIRole 0.25 MG TABLET PO SCH (20:52)
[2019-12-26] MEDS: Psyllium 1 PACKET POWD.PACK PO SCH (20:53)
[2019-12-26] MEDS ORDERED: Furosemide 40 MG/4 ML VIAL IVP SCH (21:00)
[2019-12-26] MEDS: Furosemide 60 MG in 0.9 % Sodium Chloride 50 ML IVPB SCH (23:21)
[2019-12-27] MEDS: Ipratropium/Albuterol Neb 3 ML IH SCH ×4 (03:43→16:27)
[2019-12-27 05:59] LABS: Basophils # 0.1 K/mcL (0.0-0.2); Basophils % 0.6 %; Eosinophils # 0.2 K/mcL (0.0-0.6); Eosinophils % 1.4 %; Hematocrit 36.6 % (37.5-50.1); Hemoglobin 10.8 g/dL (12.9-16.9); Lymphocytes # 2.5 K/mcL (0.6-4.6); Mean Corpuscular HGB Conc 29.5 g/dL (31.6-35.5); Mean Corpuscular Hemoglobin 23.2 pg (28.0-33.3); Mean Corpuscular Volume 78.5 fL (83.0-100.0); Mean Platelet Volume 8.9 fL (9.4-12.4); Monocytes # 0.9 K/mcL (0.0-1.3); Monocytes % 5.7 %; Neutrophils # 11.6 K/mcL (1.6-8.9); Platelet Count 377 K/mcL (140-400); Red Blood Count 4.66 M/mcL (4.19-5.50); Red Cell Distribution Width 17.2 % (11.5-14.5); Segmented Neutrophils % 74.3 %; White Blood Count 15.6 K/mcL (4.3-11.1)
[2019-12-27 06:13] LABS: BUN/Creatinine Ratio 27 (6-26); Blood Urea Nitrogen 29 mg/dL (8-23); Calcium 9.3 mg/dL (8.6-10.3); Carbon Dioxide 29 mEq/L (23-29); Chloride 101 mEq/L (98-107); Glucose 196 mg/dL (70-105); Magnesium 2.1 mg/dL (1.6-2.6); Osmolality,Calculated 297 (280-300); Potassium 3.9 mEq/L (3.5-5.1); Sodium 138 mEq/L (136-145); eGFR For African Americans > 60 (> 60); eGFR For Non-African Americans > 60 (> 60)
[2019-12-27] MEDS: *HR* Heparin 5,000 UNIT/ML VIAL SQ SCH ×2 (06:18→14:44)
[2019-12-27] MEDS: Budesonide/Formoterol 160/4.5 1 PUFF INH IH SCH (07:39)
[2019-12-27] MEDS: predniSONE 20 MG TABLET PO SCH (08:36)
[2019-12-27] MEDS: Furosemide 60 MG in 0.9 % Sodium Chloride 50 ML IVPB SCH (08:36)
[2019-12-27] MEDS: Insulin DETEMIR 100 UNIT/ML X5UNITS SQ SCH (08:37)
[2019-12-27] MEDS: Insulin LISPRO 300 UNITS/3 ML VIAL SQ SCH ×2 (08:38→11:43)
[2019-12-27] MEDS: Fluticasone Propionate Nasal 50 MCG/SPRAY BOTTLE NS SCH (08:39)
[2019-12-27 11:10] VITALS: BP 144/84
[2019-12-27] MEDS ORDERED: metOLazone 2.5 MG TABLET PO SCH (20:00)
== END 2019-12-27 16:43 | disposition home health service (06) | DRG 871 ==
LOC: EMEROOARM 22:06 → 3ANU 22:06 → SUATTDRO 12-21 00:37 → 3ANU 12-21 00:37 → SUATTDRO 12-22 17:27
PROVIDERS: ADMIT Student in an Organized Health Care Education/Training Program; ATTEND Internal Medicine

== ENCOUNTER 2019-12-31 20:46 | Inpatient (IN) ==
[2019-12-31] MEDS ORDERED: Ipratropium/Albuterol Neb 3 ML IH ONE (21:04)
[2019-12-31] MEDS ORDERED: 0.9 % Sodium Chloride 250 ML IVC ONE (21:07)
[2019-12-31 21:32] LABS: Immature Granulocytes % 1.7 % (0-4)
[2019-12-31 21:33] LABS: Basophils # 0.1 K/mcL (0.0-0.2); Basophils % 0.5 %; Eosinophils # 0.2 K/mcL (0.0-0.6); Eosinophils % 1.3 %; Hematocrit 38.7 % (37.5-50.1); Hemoglobin 11.5 g/dL (12.9-16.9); Lymphocytes # 1.3 K/mcL (0.6-4.6); Mean Corpuscular HGB Conc 29.7 g/dL (31.6-35.5); Mean Corpuscular Hemoglobin 23.1 pg (28.0-33.3); Mean Corpuscular Volume 77.7 fL (83.0-100.0); Mean Platelet Volume 9.3 fL (9.4-12.4); Monocytes # 1.5 K/mcL (0.0-1.3); Monocytes % 9.6 %; Neutrophils # 12.3 K/mcL (1.6-8.9); Platelet Count 327 K/mcL (140-400); Red Blood Count 4.98 M/mcL (4.19-5.50); Red Cell Distribution Width 17.3 % (11.5-14.5); Segmented Neutrophils % 78.9 %; White Blood Count 15.6 K/mcL (4.3-11.1)
[2019-12-31 21:43] LABS: Bilirubin,Urine Negative (Negative); Blood,Urine Small (Negative); Clarity,Urine Clear (Clear); Color,Urine Yellow (Yellow); Glucose,Urine (UA) >=1000 mg/dL (Normal); Ketones,Urine Negative (Negative); Leukocyte Esterase,Urine Negative (Negative); Nitrite,Urine Negative (Negative); Protein,Urine 30 mg/dL (Neg-Trace); Urobilinogen,Urine Normal (Normal)
[2019-12-31 21:47] LABS: Bacteria,Urine None Seen per hpf (None-Few); Hyaline Casts,Urine None Seen per lpf (None-Few); RBC,Urine 0-3 per hpf (0-3); Squamous Epithelial Cell,Urine Moderate per lpf (None-Few); WBC,Urine 0-3 per hpf (0-3)
[2019-12-31 21:54] LABS: Platelet Estimate Normal (Normal)
[2019-12-31 21:55] LABS: Alanine Aminotransferase 24 Units/L (7-52); Albumin 3.9 g/dL (3.5-5.7); Albumin/Globulin Ratio 1.2 (1.1-2.2); Alkaline Phosphatase 79 Units/L (34-104); Aspartate Amino Transferase 26 Units/L (13-39); BUN/Creatinine Ratio 22 (6-26); Bilirubin,Total 0.4 mg/dL (0.3-1.0); Blood Urea Nitrogen 29 mg/dL (8-23); Calcium 9.1 mg/dL (8.6-10.3); Carbon Dioxide 23 mEq/L (23-29); Chloride 95 mEq/L (98-107); Globulin 3.2 g/dL (2.4-3.5); Glucose 172 mg/dL (70-105); Osmolality,Calculated 286 (280-300); Potassium 3.5 mEq/L (3.5-5.1); Sodium 133 mEq/L (136-145); Total Protein 7.1 g/dL (6.4-8.9); Troponin I < 0.03 ng/mL (< 0.04); eGFR For African Americans > 60 (> 60); eGFR For Non-African Americans 53 (> 60)
[2019-12-31] MEDS ORDERED: methylPREDNISolone 125 MG/2 ML VIAL IVP ONE (22:37)
[2019-12-31] MEDS ORDERED: Azithromycin 500 MG in 0.9 % Sodium Chloride 250 ML IVPB ONE (22:44)
[2019-12-31] MEDS ORDERED: Ondansetron 4 MG/2 ML VIAL IVP ONE (22:48)
[2020-01-01] MEDS ORDERED: Naloxone 0.4 MG/ML INJ IVP PRN (02:09)
[2020-01-01] MEDS ORDERED: *HR* Dextrose 50 % in Water (Syg) 50 ML SYRINGE IVP PRN (02:13)
[2020-01-01] MEDS ORDERED: Dextrose Gel 15 GM/37.5 ML TUBE PO PRN ×2 (02:13)
[2020-01-01] MEDS ORDERED: D5% in Water 1,000 ML IVC PRN (02:13)
[2020-01-01] MEDS: Ipratropium/Albuterol Neb 3 ML IH SCH ×4 (03:18→21:08)
[2020-01-01 05:07] LABS: Hematocrit 37.5 % (37.5-50.1); Mean Corpuscular HGB Conc 29.3 g/dL (31.6-35.5); Mean Corpuscular Volume 78.3 fL (83.0-100.0); Mean Platelet Volume 9.7 fL (9.4-12.4); Platelet Count 357 K/mcL (140-400); Red Blood Count 4.79 M/mcL (4.19-5.50); Red Cell Distribution Width 17.2 % (11.5-14.5); White Blood Count 13.7 K/mcL (4.3-11.1)
[2020-01-01 05:32] LABS: Troponin I < 0.03 ng/mL (< 0.04)
[2020-01-01] MEDS: MethylPREDNISolone 40 MG/ML VIAL IVP SCH ×3 (05:32→17:17)
[2020-01-01] MEDS: *HR* Heparin 5,000 UNIT/ML VIAL SQ SCH ×2 (05:32→17:17)
[2020-01-01] MEDS: rOPINIRole 0.25 MG TABLET PO SCH ×2 (05:32→20:32)
[2020-01-01 05:33] LABS: BUN/Creatinine Ratio 21 (6-26); Blood Urea Nitrogen 29 mg/dL (8-23); Calcium 8.6 mg/dL (8.6-10.3); Carbon Dioxide 21 mEq/L (23-29); Chloride 96 mEq/L (98-107); Glucose 255 mg/dL (70-105); Osmolality,Calculated 295 (280-300); Sodium 135 mEq/L (136-145); eGFR For African Americans > 60 (> 60); eGFR For Non-African Americans 51 (> 60)
[2020-01-01 06:28] LABS: ABG Base Excess -1 mEq/L (-2 to 3); ABG HCO3 24 mEq/L (21-27); ABG Oxygen Saturation 97 % (95-98); ABG PCO2 40 mmHg (35-45); ABG PH 7.39 pH Units (7.32-7.45); ABG PO2 90 mmHg (85-104); ABG TCO2 25 mEq/L (20-26)
[2020-01-01] MEDS: Insulin LISPRO 300 UNITS/3 ML VIAL SQ SCH ×4 (07:48→20:34)
[2020-01-01] MEDS: Aspirin 81 MG TAB.CHEW PO SCH (07:48)
[2020-01-01] MEDS ORDERED: 0.9 % Sodium Chloride 1,000 ML IVC ONE (07:51)
[2020-01-01] MEDS ORDERED: levoFLOXacin 750 MG/150 ML 750 MG/150 ML BAG IVPB SCH (09:00)
[2020-01-01] MEDS: Ondansetron 4 MG/2 ML VIAL IVP PRN (09:26)
[2020-01-01] MEDS: hydrOXYzine pamoate 25 MG CAPSULE PO PRN (11:44)
[2020-01-01] MEDS: Piperacillin/Tazobactam 3.375 GM in 0.9 % Sodium Chloride Mini Bag 100 ML IVPB SCH (16:26)
[2020-01-01] MEDS: Furosemide 40 MG TABLET PO SCH (16:26)
[2020-01-01] MEDS ORDERED: clonazePAM 0.5 MG TABLET PO ONE (17:00)
[2020-01-01] MEDS ORDERED: Insulin DETEMIR 100 UNIT/ML X5UNITS SQ SCH (21:00)
[2020-01-01] MEDS ORDERED: NON-FORMULARY MEDICATION 1 EACH EACH (Fluticasone/Salmeterol [Advair Hfa 230-21 Mcg Inhale IH SCH (21:00)
[2020-01-01] MEDS: Budesonide/Formoterol 160/4.5 1 PUFF INH IH SCH (21:09)
[2020-01-02] MEDS: MethylPREDNISolone 40 MG/ML VIAL IVP SCH ×4 (01:08→17:29)
[2020-01-02] MEDS: Piperacillin/Tazobactam 3.375 GM in 0.9 % Sodium Chloride Mini Bag 100 ML IVPB SCH ×3 (01:08→16:24)
[2020-01-02 02:51] LABS: Acinetobacter baumannii by PCR Not Detected (Not Detect); Candida albicans by PCR Not Detected (Not Detect); Candida glabrata by PCR Not Detected (Not Detect); Candida krusei by PCR Not Detected (Not Detect); Candida parapsilosis by PCR Not Detected (Not Detect); Candida tropicalis by PCR Not Detected (Not Detect); Enterobacter cloacae Cmplx PCR Not Detected (Not Detect); Enterobacteriaceae by PCR Not Detected (Not Detect); Enterococcus by PCR Not Detected (Not Detect); Escherichia coli by PCR Not Detected (Not Detect); Klebsiella oxytoca by PCR Not Detected (Not Detect); Klebsiella pneumoniae by PCR Not Detected (Not Detect); Proteus by PCR Not Detected (Not Detect); Pseudomonas aeruginosa by PCR Not Detected (Not Detect); Serratia marcescens by PCR Not Detected (Not Detect); Staphylococcus aureus by PCR Not Detected (Not Detect); Staphylococcus by PCR DETECTED (Not Detect); Streptococcus agalactiae(B)PCR Not Detected (Not Detect); Streptococcus by PCR Not Detected (Not Detect); Streptococcus pneumoniae PCR Not Detected (Not Detect); Streptococcus pyogenes (A) PCR Not Detected (Not Detect); mecA Methicillin-Resist Gene DETECTED (Not Detect)
[2020-01-02] MEDS ORDERED: Vancomycin (wt based) 1,000 MG VIAL IVPB SCH (04:04)
[2020-01-02] MEDS: Ipratropium/Albuterol Neb 3 ML IH SCH ×4 (04:24→22:12)
[2020-01-02 04:32] LABS: Basophils % 0.3 %; Hematocrit 34.1 % (37.5-50.1); Mean Corpuscular Volume 78.9 fL (83.0-100.0); Red Blood Count 4.32 M/mcL (4.19-5.50); Red Cell Distribution Width 17.2 % (11.5-14.5)
[2020-01-02 04:34] LABS: Hemoglobin 9.9 g/dL (12.9-16.9); Immature Granulocytes % 1.8 % (0-4); Lymphocytes # 0.9 K/mcL (0.6-4.6); Lymphocytes % 7.8 %; Mean Corpuscular Hemoglobin 22.9 pg (28.0-33.3); Mean Platelet Volume 9.3 fL (9.4-12.4); Monocytes # 0.8 K/mcL (0.0-1.3); Monocytes % 6.8 %; Neutrophils # 9.9 K/mcL (1.6-8.9); Platelet Count 296 K/mcL (140-400); Segmented Neutrophils % 83.3 %; White Blood Count 11.9 K/mcL (4.3-11.1)
[2020-01-02 04:54] LABS: Albumin 3.5 g/dL (3.5-5.7); Albumin/Globulin Ratio 1.3 (1.1-2.2); Bilirubin,Total 0.2 mg/dL (0.3-1.0); Calcium 8.4 mg/dL (8.6-10.3); Globulin 2.8 g/dL (2.4-3.5); Potassium 4.3 mEq/L (3.5-5.1); Total Protein 6.3 g/dL (6.4-8.9)
[2020-01-02 05:12] LABS: Platelet Estimate Normal (Normal)
[2020-01-02] MEDS: hydrOXYzine pamoate 25 MG CAPSULE PO PRN (06:20)
[2020-01-02] MEDS: *HR* Heparin 5,000 UNIT/ML VIAL SQ SCH ×2 (06:22→17:29)
[2020-01-02] MEDS: Furosemide 40 MG TABLET PO SCH (08:04)
[2020-01-02] MEDS: Magnesium Oxide 400 MG TABLET PO SCH (08:04)
[2020-01-02] MEDS: Aspirin 81 MG TAB.CHEW PO SCH (08:04)
[2020-01-02] MEDS: Loratadine 10 MG TABLET PO SCH (08:04)
[2020-01-02] MEDS: Insulin LISPRO 300 UNITS/3 ML VIAL SQ SCH ×4 (08:05→20:52)
[2020-01-02] MEDS ORDERED: Roflumilast [Daliresp] 500 MCG PO SCH (09:00)
[2020-01-02] MEDS: Budesonide/Formoterol 160/4.5 1 PUFF INH IH SCH ×2 (10:08→22:12)
[2020-01-02] MEDS: Ondansetron 4 MG/2 ML VIAL IVP PRN (11:56)
[2020-01-02] MEDS: clonazePAM 0.5 MG TABLET PO PRN (17:53)
[2020-01-02] MEDS: Albuterol 2.5 MG/3 ML NEBULIZER IH PRN (19:44)
[2020-01-02] MEDS: Furosemide 40 MG/4 ML VIAL IVP SCH (20:50)
[2020-01-02] MEDS: rOPINIRole 0.25 MG TABLET PO SCH (20:51)
[2020-01-02] MEDS: Insulin DETEMIR 100 UNIT/ML X5UNITS SQ SCH (20:56)
[2020-01-02] MEDS ORDERED: Saline Nasal Spray 44 ML BOTTLE NS PRN (21:54)
[2020-01-02] MEDS: Psyllium 1 PACKET POWD.PACK PO SCH (23:13)
[2020-01-02] MEDS: Fluticasone Propionate Nasal 50 MCG/SPRAY BOTTLE NS SCH (23:14)
[2020-01-03] MEDS: MethylPREDNISolone 40 MG/ML VIAL IVP SCH ×3 (00:20→17:05)
[2020-01-03] MEDS: Piperacillin/Tazobactam 3.375 GM in 0.9 % Sodium Chloride Mini Bag 100 ML IVPB SCH ×3 (00:21→16:03)
[2020-01-03 01:28] LABS: Basophils # 0.1 K/mcL (0.0-0.2); Basophils % 0.4 %; Hematocrit 36.2 % (37.5-50.1); Hemoglobin 10.6 g/dL (12.9-16.9); Immature Granulocytes % 1.7 % (0-4); Lymphocytes # 1.2 K/mcL (0.6-4.6); Lymphocytes % 8.7 %; Mean Corpuscular HGB Conc 29.3 g/dL (31.6-35.5); Mean Corpuscular Hemoglobin 23.3 pg (28.0-33.3); Mean Corpuscular Volume 79.6 fL (83.0-100.0); Mean Platelet Volume 9.9 fL (9.4-12.4); Monocytes # 1.1 K/mcL (0.0-1.3); Monocytes % 7.6 %; Platelet Count 288 K/mcL (140-400); Red Blood Count 4.55 M/mcL (4.19-5.50); Red Cell Distribution Width 17.2 % (11.5-14.5); Segmented Neutrophils % 81.6 %; White Blood Count 14.1 K/mcL (4.3-11.1)
[2020-01-03 01:37] LABS: Neutrophils # 11.5 K/mcL (1.6-8.9)
[2020-01-03 01:50] LABS: BUN/Creatinine Ratio 21 (6-26); Blood Urea Nitrogen 30 mg/dL (8-23); Calcium 8.5 mg/dL (8.6-10.3); Carbon Dioxide 26 mEq/L (23-29); Chloride 100 mEq/L (98-107); Glucose 293 mg/dL (70-105); Magnesium 1.9 mg/dL (1.6-2.6); Osmolality,Calculated 299 (280-300); Potassium 3.7 mEq/L (3.5-5.1); Sodium 136 mEq/L (136-145); eGFR For African Americans > 60 (> 60); eGFR For Non-African Americans 50 (> 60)
[2020-01-03 01:59] LABS: Anisocytosis 1+ (Not Present); Microcytosis Present (Not Present); Platelet Estimate Normal (Normal)
[2020-01-03] MEDS: Ipratropium/Albuterol Neb 3 ML IH SCH ×4 (04:00→22:17)
[2020-01-03] MEDS: *HR* Heparin 5,000 UNIT/ML VIAL SQ SCH ×2 (06:28→17:05)
[2020-01-03] MEDS: Psyllium 1 PACKET POWD.PACK PO SCH ×3 (07:35→22:03)
[2020-01-03] MEDS: Aspirin 81 MG TAB.CHEW PO SCH (07:37)
[2020-01-03] MEDS: Loratadine 10 MG TABLET PO SCH (07:38)
[2020-01-03] MEDS: Furosemide 40 MG/4 ML VIAL IVP SCH ×2 (07:38→22:03)
[2020-01-03] MEDS: Insulin LISPRO 300 UNITS/3 ML VIAL SQ SCH ×4 (07:39→22:04)
[2020-01-03] MEDS: Magnesium Oxide 400 MG TABLET PO SCH (09:02)
[2020-01-03] MEDS: Fluticasone Propionate Nasal 50 MCG/SPRAY BOTTLE NS SCH (09:06)
[2020-01-03] MEDS: Budesonide/Formoterol 160/4.5 1 PUFF INH IH SCH ×2 (10:55→22:17)
[2020-01-03] MEDS: clonazePAM 0.5 MG TABLET PO PRN ×2 (11:41→22:02)
[2020-01-03] MEDS: Albuterol 2.5 MG/3 ML NEBULIZER IH PRN (18:19)
[2020-01-03] MEDS: rOPINIRole 0.25 MG TABLET PO SCH (22:03)
[2020-01-03] MEDS: Insulin DETEMIR 100 UNIT/ML X5UNITS SQ SCH (22:04)
[2020-01-04] MEDS: Piperacillin/Tazobactam 3.375 GM in 0.9 % Sodium Chloride Mini Bag 100 ML IVPB SCH ×3 (01:02→17:14)
[2020-01-04] MEDS: Ipratropium/Albuterol Neb 3 ML IH SCH ×4 (04:08→22:13)
[2020-01-04] MEDS: MethylPREDNISolone 40 MG/ML VIAL IVP SCH ×2 (06:14→17:14)
[2020-01-04] MEDS: *HR* Heparin 5,000 UNIT/ML VIAL SQ SCH ×2 (06:14→17:13)
[2020-01-04 08:42] LABS: Hematocrit 34.3 % (37.5-50.1); Hemoglobin 9.9 g/dL (12.9-16.9); Mean Corpuscular HGB Conc 28.9 g/dL (31.6-35.5); Mean Corpuscular Hemoglobin 22.7 pg (28.0-33.3); Mean Corpuscular Volume 78.5 fL (83.0-100.0); Platelet Count 263 K/mcL (140-400); Red Blood Count 4.37 M/mcL (4.19-5.50); Red Cell Distribution Width 17.5 % (11.5-14.5); White Blood Count 8.8 K/mcL (4.3-11.1)
[2020-01-04 09:15] LABS: BUN/Creatinine Ratio 25 (6-26); Blood Urea Nitrogen 29 mg/dL (8-23); Calcium 8.3 mg/dL (8.6-10.3); Carbon Dioxide 28 mEq/L (23-29); Chloride 103 mEq/L (98-107); Glucose 206 mg/dL (70-105); Osmolality,Calculated 298 (280-300); Potassium 3.9 mEq/L (3.5-5.1); Sodium 138 mEq/L (136-145); eGFR For African Americans > 60 (> 60); eGFR For Non-African Americans > 60 (> 60)
[2020-01-04] MEDS ORDERED: FLUoxetine HCl Oral Soln 20 MG/5 ML UDC PO SCH (09:30)
[2020-01-04] MEDS: Aspirin 81 MG TAB.CHEW PO SCH (10:12)
[2020-01-04] MEDS: Loratadine 10 MG TABLET PO SCH (10:12)
[2020-01-04] MEDS: clonazePAM 0.5 MG TABLET PO PRN (10:13)
[2020-01-04] MEDS: Furosemide 40 MG/4 ML VIAL IVP SCH (10:13)
[2020-01-04] MEDS: Magnesium Oxide 400 MG TABLET PO SCH (10:13)
[2020-01-04] MEDS: Psyllium 1 PACKET POWD.PACK PO SCH ×3 (10:14→21:20)
[2020-01-04] MEDS: Insulin LISPRO 300 UNITS/3 ML VIAL SQ SCH ×4 (10:16→21:50)
[2020-01-04] MEDS: Fluticasone Propionate Nasal 50 MCG/SPRAY BOTTLE NS SCH (10:17)
[2020-01-04] MEDS: Budesonide/Formoterol 160/4.5 1 PUFF INH IH SCH ×2 (10:43→22:12)
[2020-01-04] MEDS ORDERED: Aminoglycoside Consult 1 EACH MC ONE (14:02)
[2020-01-04] MEDS ORDERED: Furosemide 20 MG/2 ML VIAL IVP ONE (18:00)
[2020-01-04] MEDS: rOPINIRole 0.25 MG TABLET PO SCH (21:21)
[2020-01-04] MEDS: Insulin DETEMIR 100 UNIT/ML X5UNITS SQ SCH (21:45)
[2020-01-05] MEDS: Piperacillin/Tazobactam 3.375 GM in 0.9 % Sodium Chloride Mini Bag 100 ML IVPB SCH ×3 (01:20→16:02)
[2020-01-05] MEDS: Ipratropium/Albuterol Neb 3 ML IH SCH ×4 (03:53→20:27)
[2020-01-05 04:58] LABS: Hematocrit 35.7 % (37.5-50.1); Hemoglobin 10.5 g/dL (12.9-16.9); Mean Corpuscular HGB Conc 29.4 g/dL (31.6-35.5); Mean Corpuscular Hemoglobin 23.1 pg (28.0-33.3); Mean Corpuscular Volume 78.5 fL (83.0-100.0); Mean Platelet Volume 9.7 fL (9.4-12.4); Platelet Count 335 K/mcL (140-400); Red Blood Count 4.55 M/mcL (4.19-5.50); Red Cell Distribution Width 17.4 % (11.5-14.5); White Blood Count 10.7 K/mcL (4.3-11.1)
[2020-01-05 05:17] LABS: BUN/Creatinine Ratio 24 (6-26); Blood Urea Nitrogen 30 mg/dL (8-23); Calcium 9.1 mg/dL (8.6-10.3); Carbon Dioxide 29 mEq/L (23-29); Chloride 99 mEq/L (98-107); Glucose 252 mg/dL (70-105); Osmolality,Calculated 301 (280-300); Potassium 4.2 mEq/L (3.5-5.1); Sodium 138 mEq/L (136-145); eGFR For African Americans > 60 (> 60); eGFR For Non-African Americans 59 (> 60)
[2020-01-05] MEDS: *HR* Heparin 5,000 UNIT/ML VIAL SQ SCH ×2 (06:14→18:41)
[2020-01-05] MEDS: Psyllium 1 PACKET POWD.PACK PO SCH ×3 (08:44→20:41)
[2020-01-05] MEDS: clonazePAM 0.5 MG TABLET PO PRN (08:44)
[2020-01-05] MEDS: Magnesium Oxide 400 MG TABLET PO SCH (08:46)
[2020-01-05] MEDS: predniSONE 20 MG TABLET PO SCH (08:46)
[2020-01-05] MEDS: Aspirin 81 MG TAB.CHEW PO SCH (08:46)
[2020-01-05] MEDS: Doxycycline 100 MG CAPSULE PO SCH ×2 (08:46→20:43)
[2020-01-05] MEDS: Insulin LISPRO 300 UNITS/3 ML VIAL SQ SCH ×4 (08:47→20:46)
[2020-01-05] MEDS: Fluticasone Propionate Nasal 50 MCG/SPRAY BOTTLE NS SCH (08:49)
[2020-01-05] MEDS: Loratadine 10 MG TABLET PO SCH (09:02)
[2020-01-05] MEDS: Furosemide 40 MG/4 ML VIAL IVP SCH (09:03)
[2020-01-05] MEDS: Budesonide/Formoterol 160/4.5 1 PUFF INH IH SCH ×2 (10:33→20:27)
[2020-01-05] MEDS ORDERED: clonazePAM 1 MG TABLET PO PRN (15:41)
[2020-01-05] MEDS: rOPINIRole 0.25 MG TABLET PO SCH (20:44)
[2020-01-05] MEDS: Insulin DETEMIR 100 UNIT/ML X5UNITS SQ SCH (20:47)
[2020-01-06] MEDS: Piperacillin/Tazobactam 3.375 GM in 0.9 % Sodium Chloride Mini Bag 100 ML IVPB SCH ×2 (02:54→08:20)
[2020-01-06] MEDS: Ipratropium/Albuterol Neb 3 ML IH SCH ×2 (03:50→10:48)
[2020-01-06 05:26] LABS: Hematocrit 32.9 % (37.5-50.1); Hemoglobin 9.7 g/dL (12.9-16.9); Mean Corpuscular HGB Conc 29.5 g/dL (31.6-35.5); Mean Corpuscular Hemoglobin 23.4 pg (28.0-33.3); Mean Corpuscular Volume 79.3 fL (83.0-100.0); Platelet Count 268 K/mcL (140-400); Red Blood Count 4.15 M/mcL (4.19-5.50); Red Cell Distribution Width 17.2 % (11.5-14.5); White Blood Count 9.4 K/mcL (4.3-11.1)
[2020-01-06 05:47] LABS: BUN/Creatinine Ratio 27 (6-26); Blood Urea Nitrogen 31 mg/dL (8-23); Calcium 8.7 mg/dL (8.6-10.3); Carbon Dioxide 30 mEq/L (23-29); Chloride 104 mEq/L (98-107); Glucose 158 mg/dL (70-105); Osmolality,Calculated 298 (280-300); Potassium 3.8 mEq/L (3.5-5.1); Sodium 139 mEq/L (136-145); eGFR For African Americans > 60 (> 60); eGFR For Non-African Americans > 60 (> 60)
[2020-01-06] MEDS: *HR* Heparin 5,000 UNIT/ML VIAL SQ SCH (06:06)
[2020-01-06] MEDS: Psyllium 1 PACKET POWD.PACK PO SCH (08:20)
[2020-01-06] MEDS: Fluticasone Propionate Nasal 50 MCG/SPRAY BOTTLE NS SCH (08:21)
[2020-01-06] MEDS: Doxycycline 100 MG CAPSULE PO SCH (08:22)
[2020-01-06] MEDS: Aspirin 81 MG TAB.CHEW PO SCH (08:22)
[2020-01-06] MEDS: Magnesium Oxide 400 MG TABLET PO SCH (08:22)
[2020-01-06] MEDS: predniSONE 20 MG TABLET PO SCH (08:23)
[2020-01-06] MEDS: Furosemide 40 MG/4 ML VIAL IVP SCH (08:23)
[2020-01-06] MEDS: Loratadine 10 MG TABLET PO SCH (08:23)
[2020-01-06] MEDS: Insulin LISPRO 300 UNITS/3 ML VIAL SQ SCH ×2 (08:24→12:06)
[2020-01-06] MEDS: clonazePAM 0.5 MG TABLET PO PRN (08:39)
[2020-01-06 10:32] VITALS: BP 117/72
[2020-01-06] MEDS: Budesonide/Formoterol 160/4.5 1 PUFF INH IH SCH (10:48)
== END 2020-01-06 14:03 | disposition home health service (06) | DRG 177 ==
LOC: EMEROOARM 20:46 → 3ANU 20:46 → SUATTDRO 23:06 → 3ANU 23:50
PROVIDERS: ADMIT Internal Medicine; ATTEND Internal Medicine

== ENCOUNTER 2020-01-07 12:32 | Inpatient (IN) ==
[2020-01-07] MEDS ORDERED: Ipratropium/Albuterol Neb 3 ML IH ONE (12:40)
[2020-01-07] MEDS ORDERED: 0.9 % Sodium Chloride 1,000 ML IVC ONE (12:47)
[2020-01-07 13:09] LABS: Basophils # 0.1 K/mcL (0.0-0.2); Basophils % 0.5 %; Eosinophils # 0.1 K/mcL (0.0-0.6); Eosinophils % 0.6 %; Immature Granulocytes % 2.7 % (0-4); Lymphocytes % 11.2 %; Mean Corpuscular HGB Conc 29.3 g/dL (31.6-35.5); Mean Corpuscular Hemoglobin 22.9 pg (28.0-33.3); Mean Corpuscular Volume 78.2 fL (83.0-100.0); Mean Platelet Volume 9.1 fL (9.4-12.4); Monocytes # 0.9 K/mcL (0.0-1.3); Monocytes % 5.1 %; Neutrophils # 14.1 K/mcL (1.6-8.9); Platelet Count 403 K/mcL (140-400); Red Blood Count 5.24 M/mcL (4.19-5.50); Red Cell Distribution Width 17.9 % (11.5-14.5); Segmented Neutrophils % 79.9 %
[2020-01-07 13:10] LABS: White Blood Count 17.6 K/mcL (4.3-11.1)
[2020-01-07 13:13] LABS: VBG HCO3 30 mEq/L (21-27); VBG PCO2 46 mmHg (41-51); VBG PH 7.42 pH Units (7.32-7.42); VBG PO2 180 mmHg (25-50)
[2020-01-07 13:30] LABS: BUN/Creatinine Ratio 23 (6-26); Blood Urea Nitrogen 26 mg/dL (8-23); Calcium 9.7 mg/dL (8.6-10.3); Carbon Dioxide 29 mEq/L (23-29); Chloride 99 mEq/L (98-107); Glucose 181 mg/dL (70-105); Osmolality,Calculated 295 (280-300); Potassium 4.5 mEq/L (3.5-5.1); Sodium 138 mEq/L (136-145); eGFR For African Americans > 60 (> 60); eGFR For Non-African Americans > 60 (> 60)
[2020-01-07 13:31] LABS: Troponin I < 0.03 ng/mL (< 0.04)
[2020-01-07] MEDS ORDERED: Ondansetron 4 MG/2 ML VIAL IVP PRN (16:09)
[2020-01-07] MEDS ORDERED: MOM Conc 10 ML UD.LIQ PO PRN (16:09)
[2020-01-07] MEDS ORDERED: Mag Hydrox/Al Hydrox/Simeth 30 ML UDC PO PRN (16:09)
[2020-01-07] MEDS ORDERED: Naloxone 0.4 MG/ML INJ IVP PRN (16:09)
[2020-01-07] MEDS ORDERED: Dextrose Gel 15 GM/37.5 ML TUBE PO PRN ×2 (16:13)
[2020-01-07] MEDS ORDERED: *HR* Dextrose 50 % in Water (Syg) 50 ML SYRINGE IVP PRN (16:13)
[2020-01-07] MEDS ORDERED: D5% in Water 1,000 ML IVC PRN (16:13)
[2020-01-07] MEDS ORDERED: Saline Nasal Spray 44 ML BOTTLE NS PRN (16:35)
[2020-01-07] MEDS: Insulin LISPRO 300 UNITS/3 ML VIAL SQ SCH ×2 (17:42→20:29)
[2020-01-07] MEDS: Ipratropium/Albuterol Neb 3 ML IH SCH ×2 (18:10→22:21)
[2020-01-07] MEDS: Furosemide 40 MG/4 ML VIAL IVP SCH (20:40)
[2020-01-07] MEDS: Doxycycline 100 MG CAPSULE PO SCH (20:41)
[2020-01-07] MEDS: rOPINIRole 0.25 MG TABLET PO SCH (20:41)
[2020-01-07] MEDS: clonazePAM 0.5 MG TABLET PO PRN (20:49)
[2020-01-07] MEDS: Insulin DETEMIR 100 UNIT/ML X5UNITS SQ SCH (20:50)
[2020-01-07] MEDS: Budesonide/Formoterol 160/4.5 1 PUFF INH IH SCH (22:22)
[2020-01-07] MEDS: methylPREDNISolone 125 MG/2 ML VIAL IVP SCH (23:35)
[2020-01-08 02:01] LABS: BUN/Creatinine Ratio 21 (6-26); Blood Urea Nitrogen 24 mg/dL (8-23); Calcium 9.3 mg/dL (8.6-10.3); Carbon Dioxide 33 mEq/L (23-29); Chloride 99 mEq/L (98-107); Glucose 91 mg/dL (70-105); Osmolality,Calculated 296 (280-300); Sodium 141 mEq/L (136-145); eGFR For African Americans > 60 (> 60); eGFR For Non-African Americans > 60 (> 60)
[2020-01-08] MEDS: Ipratropium/Albuterol Neb 3 ML IH SCH ×4 (03:30→21:30)
[2020-01-08 04:08] LABS: Hematocrit 37.4 % (37.5-50.1); Hemoglobin 10.8 g/dL (12.9-16.9); Mean Corpuscular HGB Conc 28.9 g/dL (31.6-35.5); Mean Platelet Volume 9.1 fL (9.4-12.4)
[2020-01-08 04:09] LABS: Mean Corpuscular Hemoglobin 22.9 pg (28.0-33.3); Mean Corpuscular Volume 79.4 fL (83.0-100.0); Platelet Count 277 K/mcL (140-400); Red Blood Count 4.71 M/mcL (4.19-5.50); Red Cell Distribution Width 17.7 % (11.5-14.5); White Blood Count 13.7 K/mcL (4.3-11.1)
[2020-01-08] MEDS: Loratadine 10 MG TABLET PO SCH (07:49)
[2020-01-08] MEDS: Aspirin 81 MG TAB.CHEW PO SCH (07:49)
[2020-01-08] MEDS: Doxycycline 100 MG CAPSULE PO SCH ×2 (07:49→20:33)
[2020-01-08] MEDS: Magnesium Oxide 400 MG TABLET PO SCH (07:50)
[2020-01-08] MEDS: methylPREDNISolone 125 MG/2 ML VIAL IVP SCH ×2 (07:52→16:55)
[2020-01-08] MEDS: Furosemide 40 MG/4 ML VIAL IVP SCH (07:53)
[2020-01-08] MEDS: Insulin LISPRO 300 UNITS/3 ML VIAL SQ SCH ×4 (08:16→20:34)
[2020-01-08] MEDS: Fluticasone Propionate Nasal 50 MCG/SPRAY BOTTLE NS SCH (08:20)
[2020-01-08] MEDS: Budesonide/Formoterol 160/4.5 1 PUFF INH IH SCH ×2 (11:00→21:30)
[2020-01-08] MEDS ORDERED: Isovue-370 500 ML BOTTLE IVP ONE (13:01)
[2020-01-08] MEDS: *HR* Heparin 5,000 UNIT/ML VIAL SQ SCH ×2 (14:01→20:32)
[2020-01-08] MEDS: clonazePAM 0.5 MG TABLET PO PRN (16:55)
[2020-01-08] MEDS: rOPINIRole 0.25 MG TABLET PO SCH (20:33)
[2020-01-08] MEDS: Insulin DETEMIR 100 UNIT/ML X5UNITS SQ SCH (20:33)
[2020-01-09] MEDS: methylPREDNISolone 125 MG/2 ML VIAL IVP SCH (00:14)
[2020-01-09 01:52] LABS: Hematocrit 36.6 % (37.5-50.1); Hemoglobin 10.7 g/dL (12.9-16.9); Mean Corpuscular HGB Conc 29.2 g/dL (31.6-35.5); Mean Corpuscular Hemoglobin 22.8 pg (28.0-33.3); Mean Platelet Volume 9.2 fL (9.4-12.4); Platelet Count 302 K/mcL (140-400); Red Blood Count 4.69 M/mcL (4.19-5.50); Red Cell Distribution Width 17.6 % (11.5-14.5); White Blood Count 14.6 K/mcL (4.3-11.1)
[2020-01-09 01:59] LABS: BUN/Creatinine Ratio 27 (6-26); Blood Urea Nitrogen 33 mg/dL (8-23); Calcium 9.3 mg/dL (8.6-10.3); Carbon Dioxide 29 mEq/L (23-29); Chloride 96 mEq/L (98-107); Glucose 189 mg/dL (70-105); Magnesium 2.2 mg/dL (1.6-2.6); Osmolality,Calculated 292 (280-300); Potassium 4.7 mEq/L (3.5-5.1); Sodium 135 mEq/L (136-145); eGFR For African Americans > 60 (> 60); eGFR For Non-African Americans 59 (> 60)
[2020-01-09] MEDS: Ipratropium/Albuterol Neb 3 ML IH SCH ×4 (03:28→22:19)
[2020-01-09] MEDS: *HR* Heparin 5,000 UNIT/ML VIAL SQ SCH ×3 (06:12→20:49)
[2020-01-09] MEDS: Magnesium Oxide 400 MG TABLET PO SCH (08:59)
[2020-01-09] MEDS: Aspirin 81 MG TAB.CHEW PO SCH (08:59)
[2020-01-09] MEDS: Doxycycline 100 MG CAPSULE PO SCH ×2 (08:59→20:50)
[2020-01-09] MEDS: Loratadine 10 MG TABLET PO SCH (08:59)
[2020-01-09] MEDS: Fluticasone Propionate Nasal 50 MCG/SPRAY BOTTLE NS SCH (09:03)
[2020-01-09] MEDS: Insulin LISPRO 300 UNITS/3 ML VIAL SQ SCH ×4 (09:03→20:50)
[2020-01-09] MEDS: clonazePAM 0.5 MG TABLET PO PRN (09:07)
[2020-01-09] MEDS: Furosemide 20 MG TABLET PO SCH ×2 (09:07→17:53)
[2020-01-09] MEDS: Budesonide/Formoterol 160/4.5 1 PUFF INH IH SCH ×2 (11:07→22:19)
[2020-01-09] MEDS: predniSONE 20 MG TABLET PO SCH (17:53)
[2020-01-09] MEDS: rOPINIRole 0.25 MG TABLET PO SCH (20:49)
[2020-01-09] MEDS: Insulin DETEMIR 100 UNIT/ML X5UNITS SQ SCH (20:49)
[2020-01-10 03:37] LABS: Basophils % 0.2 %; Hemoglobin 10.3 g/dL (12.9-16.9); Immature Granulocytes % 1.4 % (0-4)
[2020-01-10 03:39] LABS: Eosinophils % 0.1 %; Hematocrit 35.2 % (37.5-50.1); Lymphocytes % 7.2 %; Mean Corpuscular HGB Conc 29.3 g/dL (31.6-35.5); Mean Corpuscular Hemoglobin 23.4 pg (28.0-33.3); Mean Platelet Volume 9.9 fL (9.4-12.4); Monocytes # 0.7 K/mcL (0.0-1.3); Monocytes % 5.2 %; Neutrophils # 11.3 K/mcL (1.6-8.9); Platelet Count 265 K/mcL (140-400); Red Cell Distribution Width 17.8 % (11.5-14.5); Segmented Neutrophils % 85.9 %; White Blood Count 13.2 K/mcL (4.3-11.1)
[2020-01-10 03:57] LABS: Hypochromasia Present (Not Present); Platelet Estimate Normal (Normal)
[2020-01-10] MEDS: Ipratropium/Albuterol Neb 3 ML IH SCH ×4 (04:09→22:05)
[2020-01-10] MEDS: *HR* Heparin 5,000 UNIT/ML VIAL SQ SCH ×3 (05:30→20:46)
[2020-01-10] MEDS: Fluticasone Propionate Nasal 50 MCG/SPRAY BOTTLE NS SCH (08:29)
[2020-01-10] MEDS: predniSONE 20 MG TABLET PO SCH ×2 (08:29→16:56)
[2020-01-10] MEDS: Doxycycline 100 MG CAPSULE PO SCH ×2 (08:29→20:45)
[2020-01-10] MEDS: Furosemide 20 MG TABLET PO SCH ×2 (08:30→16:56)
[2020-01-10] MEDS: Aspirin 81 MG TAB.CHEW PO SCH (08:30)
[2020-01-10] MEDS: Insulin LISPRO 300 UNITS/3 ML VIAL SQ SCH ×4 (08:30→21:06)
[2020-01-10] MEDS: Loratadine 10 MG TABLET PO SCH (08:30)
[2020-01-10] MEDS: Magnesium Oxide 400 MG TABLET PO SCH (08:30)
[2020-01-10] MEDS: Budesonide/Formoterol 160/4.5 1 PUFF INH IH SCH ×2 (09:52→22:05)
[2020-01-10] MEDS: Tiotropium 18 MCG inhalation IH SCH (09:54)
[2020-01-10] MEDS: rOPINIRole 0.25 MG TABLET PO SCH (20:46)
[2020-01-10] MEDS: Insulin DETEMIR 100 UNIT/ML X5UNITS SQ SCH (21:06)
[2020-01-11 01:57] LABS: BUN/Creatinine Ratio 25 (6-26); Blood Urea Nitrogen 27 mg/dL (8-23); Calcium 8.9 mg/dL (8.6-10.3); Carbon Dioxide 26 mEq/L (23-29); Chloride 99 mEq/L (98-107); Glucose 226 mg/dL (70-105); Osmolality,Calculated 292 (280-300); Potassium 4.6 mEq/L (3.5-5.1); Sodium 135 mEq/L (136-145); eGFR For African Americans > 60 (> 60); eGFR For Non-African Americans > 60 (> 60)
[2020-01-11] MEDS: Ipratropium/Albuterol Neb 3 ML IH SCH ×2 (03:52→10:34)
[2020-01-11] MEDS: *HR* Heparin 5,000 UNIT/ML VIAL SQ SCH (05:53)
[2020-01-11] MEDS: Magnesium Oxide 400 MG TABLET PO SCH (07:52)
[2020-01-11] MEDS: Doxycycline 100 MG CAPSULE PO SCH (07:52)
[2020-01-11] MEDS: predniSONE 20 MG TABLET PO SCH (07:53)
[2020-01-11] MEDS: Furosemide 20 MG TABLET PO SCH (07:53)
[2020-01-11] MEDS: Aspirin 81 MG TAB.CHEW PO SCH (07:53)
[2020-01-11] MEDS: Loratadine 10 MG TABLET PO SCH (07:53)
[2020-01-11] MEDS: Insulin LISPRO 300 UNITS/3 ML VIAL SQ SCH ×2 (07:54→11:52)
[2020-01-11] MEDS: Fluticasone Propionate Nasal 50 MCG/SPRAY BOTTLE NS SCH (07:55)
[2020-01-11] MEDS: Budesonide/Formoterol 160/4.5 1 PUFF INH IH SCH (10:34)
[2020-01-11] MEDS: Tiotropium 18 MCG inhalation IH SCH (10:35)
[2020-01-11 11:28] VITALS: BP 167/89
== END 2020-01-11 13:00 | disposition home health service (06) | DRG 190 ==
LOC: 2ANU 12:32 → EMEROOARM 12:32 → 2ANU 15:40 → SUATTDRO 16:09
PROVIDERS: ADMIT Internal Medicine; ATTEND Internal Medicine

== ENCOUNTER 2020-03-31 22:49 | Inpatient (IN) ==
[2020-03-31] MEDS ORDERED: Isovue-370 500 ML BOTTLE IVP ONE (23:28)
[2020-03-31] MEDS ORDERED: *HR* HYDROmorphone (PF) 1 MG/ML SYRINGE IVP ONE (23:33)
[2020-03-31 23:39] LABS: Alanine Aminotransferase 13 Units/L (7-52); Albumin 3.9 g/dL (3.5-5.7); Albumin/Globulin Ratio 1.1 (1.1-2.2); Alkaline Phosphatase 93 Units/L (34-104); Aspartate Amino Transferase 11 Units/L (13-39); BUN/Creatinine Ratio 12 (6-26); Bilirubin,Indirect 0.2 mg/dL (0.0-1.0); Bilirubin,Total 0.2 mg/dL (0.3-1.0); Blood Urea Nitrogen 13 mg/dL (8-23); Carbon Dioxide 28 mEq/L (23-29); Chloride 99 mEq/L (98-107); Globulin 3.4 g/dL (2.4-3.5); Glucose 221 mg/dL (70-105); Lipase 51 Units/L (11-82); Osmolality,Calculated 289 (280-300); Potassium 3.6 mEq/L (3.5-5.1); Sodium 136 mEq/L (136-145); Total Protein 7.3 g/dL (6.4-8.9); eGFR For African Americans > 60 (> 60); eGFR For Non-African Americans > 60 (> 60)
[2020-03-31 23:47] LABS: Activated Partial Thrombo Time 40.9 Seconds (26.0-36.0); INR 0.9; Prothrombin Time 10.7 Seconds (9.4-12.1)
[2020-03-31 23:55] LABS: Basophils # 0.1 K/mcL (0.0-0.2); Basophils % 0.5 %; Eosinophils # 0.4 K/mcL (0.0-0.6); Eosinophils % 2.2 %; Hematocrit 36.2 % (37.5-50.1); Hemoglobin 10.8 g/dL (12.9-16.9); Immature Granulocytes % 1.2 % (0-4); Lymphocytes # 2.8 K/mcL (0.6-4.6); Lymphocytes % 15.2 %; Mean Corpuscular HGB Conc 29.8 g/dL (31.6-35.5); Mean Corpuscular Hemoglobin 24.2 pg (28.0-33.3); Mean Platelet Volume 8.6 fL (9.4-12.4); Monocytes % 5.6 %; Neutrophils # 13.7 K/mcL (1.6-8.9); Nucleated Red Blood Cells 0.2 /100 WBC (0); Platelet Count 477 K/mcL (140-400); Red Blood Count 4.47 M/mcL (4.19-5.50); Red Cell Distribution Width 17.7 % (11.5-14.5); Segmented Neutrophils % 75.3 %; White Blood Count 18.1 K/mcL (4.3-11.1)
[2020-04-01 00:31] LABS: Bacteria,Urine Few per hpf (None-Few); Bilirubin,Urine Negative (Negative); Blood,Urine Trace (Negative); Clarity,Urine Clear (Clear); Color,Urine Light-Yellow (Yellow); Glucose,Urine (UA) >=1000 mg/dL (Normal); Ketones,Urine Negative (Negative); Leukocyte Esterase,Urine Small (Negative); Nitrite,Urine Negative (Negative); Protein,Urine Trace mg/dL (Neg-Trace); RBC,Urine 0-3 per hpf (0-3); Specific Gravity,Urine > 1.030 (1.010-1.025); Squamous Epithelial Cell,Urine Few per hpf (None-Few); Urobilinogen,Urine Normal (Normal); WBC,Urine 15-30 per hpf (0-3)
[2020-04-01] MEDS ORDERED: *HR* HYDROmorphone (PF) 1 MG/ML SYRINGE IVP ONE (01:14)
[2020-04-01] MEDS ORDERED: Ondansetron 4 MG/2 ML VIAL IVP ONE ×2 (01:42→06:52)
[2020-04-01] MEDS ORDERED: Naloxone 0.4 MG/ML INJ IVP PRN (03:04)
[2020-04-01] MEDS ORDERED: 0.9 % Sodium Chloride 1,000 ML IVC SCH (03:15)
[2020-04-01 03:35] LABS: Basophils # 0.1 K/mcL (0.0-0.2); Basophils % 0.5 %; Eosinophils # 0.3 K/mcL (0.0-0.6); Eosinophils % 1.4 %; Hematocrit 37.6 % (37.5-50.1); Hemoglobin 10.9 g/dL (12.9-16.9); Immature Granulocytes % 1.3 % (0-4); Lymphocytes % 9.9 %; Mean Corpuscular Hemoglobin 23.2 pg (28.0-33.3); Mean Platelet Volume 8.3 fL (9.4-12.4); Monocytes # 1.1 K/mcL (0.0-1.3); Monocytes % 5.3 %; Neutrophils # 16.5 K/mcL (1.6-8.9); Nucleated Red Blood Cells 0.1 /100 WBC (0); Platelet Count 490 K/mcL (140-400); Segmented Neutrophils % 81.6 %; White Blood Count 20.2 K/mcL (4.3-11.1)
[2020-04-01 03:48] LABS: Alanine Aminotransferase 13 Units/L (7-52); Albumin/Globulin Ratio 1.1 (1.1-2.2); Alkaline Phosphatase 98 Units/L (34-104); Aspartate Amino Transferase 12 Units/L (13-39); BUN/Creatinine Ratio 14 (6-26); Bilirubin,Total 0.3 mg/dL (0.3-1.0); Blood Urea Nitrogen 14 mg/dL (8-23); Calcium 8.8 mg/dL (8.6-10.3); Carbon Dioxide 23 mEq/L (23-29); Chloride 99 mEq/L (98-107); Globulin 3.5 g/dL (2.4-3.5); Glucose 266 mg/dL (70-105); Osmolality,Calculated 290 (280-300); Potassium 4.2 mEq/L (3.5-5.1); Sodium 135 mEq/L (136-145); Total Protein 7.5 g/dL (6.4-8.9); eGFR For African Americans > 60 (> 60); eGFR For Non-African Americans > 60 (> 60)
[2020-04-01] MEDS ORDERED: *HR* Dextrose 50 % in Water (Vial) 50 ML VIAL IVP PRN (05:09)
[2020-04-01] MEDS ORDERED: Dextrose Gel 15 GM/37.5 ML TUBE PO PRN ×2 (05:09)
[2020-04-01] MEDS ORDERED: D5% in Water 1,000 ML IVC PRN (05:09)
[2020-04-01] MEDS ORDERED: Ipratropium/Albuterol Neb 3 ML IH PRN (05:58)
[2020-04-01] MEDS: Insulin LISPRO 300 UNITS/3 ML VIAL SQ SCH ×3 (06:06→18:09)
[2020-04-01] MEDS: Piperacillin/Tazobactam 3.375 GM in 0.9 % Sodium Chloride Mini Bag 100 ML IVPB SCH ×2 (07:04→15:17)
[2020-04-01] MEDS: Acetaminophen IV 1,000 MG/100 ML INFUS..BTL IVPB SCH ×2 (09:40→18:11)
[2020-04-01] MEDS ORDERED: Scopolamine Patch 1.5 MG PATCH.TD72 TD SCH (09:45)
[2020-04-01] MEDS ORDERED: Metoclopramide 10 MG/2 ML VIAL IVP ONE (12:47)
[2020-04-01] MEDS: Insulin DETEMIR 100 UNIT/ML X5UNITS SQ SCH (15:17)
[2020-04-01] MEDS: Ipratropium/Albuterol Neb 3 ML IH SCH ×3 (15:44→21:59)
[2020-04-01] MEDS: Ondansetron 4 MG/2 ML VIAL IVP PRN (18:11)
[2020-04-01] MEDS: Budesonide/Formoterol 160/4.5 1 PUFF INH IH SCH (21:50)
[2020-04-02] MEDS: Insulin LISPRO 300 UNITS/3 ML VIAL SQ SCH ×5 (00:06→20:34)
[2020-04-02] MEDS: Piperacillin/Tazobactam 3.375 GM in 0.9 % Sodium Chloride Mini Bag 100 ML IVPB SCH ×4 (00:07→23:17)
[2020-04-02] MEDS: Acetaminophen IV 1,000 MG/100 ML INFUS..BTL IVPB SCH ×4 (00:07→18:09)
[2020-04-02] MEDS: Ondansetron 4 MG/2 ML VIAL IVP PRN ×2 (02:39→10:00)
[2020-04-02] MEDS: Ipratropium/Albuterol Neb 3 ML IH SCH ×4 (03:04→22:06)
[2020-04-02 03:41] LABS: Basophils % 0.2 %; Eosinophils # 0.1 K/mcL (0.0-0.6); Eosinophils % 0.7 %; Hematocrit 32.4 % (37.5-50.1); Hemoglobin 9.6 g/dL (12.9-16.9); Immature Granulocytes % 0.5 % (0-4); Lymphocytes # 0.9 K/mcL (0.6-4.6); Lymphocytes % 5.1 %; Mean Corpuscular HGB Conc 29.6 g/dL (31.6-35.5); Mean Corpuscular Hemoglobin 23.9 pg (28.0-33.3); Mean Corpuscular Volume 80.6 fL (83.0-100.0); Mean Platelet Volume 8.4 fL (9.4-12.4); Monocytes # 1.1 K/mcL (0.0-1.3); Monocytes % 6.2 %; Platelet Count 398 K/mcL (140-400); Red Blood Count 4.02 M/mcL (4.19-5.50); Red Cell Distribution Width 17.5 % (11.5-14.5); Segmented Neutrophils % 87.3 %; White Blood Count 17.2 K/mcL (4.3-11.1)
[2020-04-02 03:48] LABS: BUN/Creatinine Ratio 23 (6-26); Blood Urea Nitrogen 25 mg/dL (8-23); Calcium 8.3 mg/dL (8.6-10.3); Carbon Dioxide 24 mEq/L (23-29); Chloride 101 mEq/L (98-107); Glucose 225 mg/dL (70-105); Osmolality,Calculated 293 (280-300); Potassium 3.7 mEq/L (3.5-5.1); Sodium 136 mEq/L (136-145); eGFR For African Americans > 60 (> 60); eGFR For Non-African Americans > 60 (> 60)
[2020-04-02] MEDS ORDERED: *HR* LORazepam 2 MG/ML VIAL IVP PRN (07:35)
[2020-04-02] MEDS: Insulin DETEMIR 100 UNIT/ML X5UNITS SQ SCH (08:19)
[2020-04-02] MEDS: Fluticasone Propionate Nasal 50 MCG/SPRAY BOTTLE NS SCH (08:20)
[2020-04-02] MEDS ORDERED: Metoclopramide 10 MG/2 ML VIAL IVP PRN (08:44)
[2020-04-02] MEDS ORDERED: MethylPREDNISolone 40 MG/ML VIAL IVP SCH (09:00)
[2020-04-02] MEDS: 0.9 % Sodium Chloride 1,000 ML IVC SCH ×2 (10:00→20:35)
[2020-04-02] MEDS: Budesonide/Formoterol 160/4.5 1 PUFF INH IH SCH ×2 (11:22→22:06)
[2020-04-02] MEDS ORDERED: clonazePAM 0.5 MG TABLET PO PRN (12:22)
[2020-04-02] MEDS: *HR* Heparin 5,000 UNIT/ML VIAL SQ SCH ×2 (13:55→20:33)
[2020-04-02] MEDS: Furosemide 40 MG TABLET PO SCH (17:36)
[2020-04-02] MEDS: predniSONE 5 MG TABLET PO SCH (20:32)
[2020-04-02] MEDS: rOPINIRole 0.25 MG TABLET PO SCH (20:33)
[2020-04-02] MEDS ORDERED: NON-FORMULARY MEDICATION 1 EACH EACH (Fluticasone/Salmeterol [Advair Hfa 230-21 Mcg Inhale IH SCH (21:00)
[2020-04-03] MEDS: Ipratropium/Albuterol Neb 3 ML IH SCH ×4 (04:03→21:30)
[2020-04-03] MEDS: *HR* Heparin 5,000 UNIT/ML VIAL SQ SCH ×3 (06:10→20:13)
[2020-04-03] MEDS: 0.9 % Sodium Chloride 1,000 ML IVC SCH (06:10)
[2020-04-03 06:35] LABS: Hematocrit 28.7 % (37.5-50.1); Hemoglobin 8.4 g/dL (12.9-16.9); Mean Corpuscular HGB Conc 29.3 g/dL (31.6-35.5); Mean Corpuscular Hemoglobin 23.9 pg (28.0-33.3); Mean Corpuscular Volume 81.5 fL (83.0-100.0); Mean Platelet Volume 8.4 fL (9.4-12.4); Platelet Count 307 K/mcL (140-400); Red Blood Count 3.52 M/mcL (4.19-5.50); Red Cell Distribution Width 17.7 % (11.5-14.5); White Blood Count 11.4 K/mcL (4.3-11.1)
[2020-04-03 07:00] LABS: BUN/Creatinine Ratio 18 (6-26); Blood Urea Nitrogen 14 mg/dL (8-23); Calcium 8.3 mg/dL (8.6-10.3); Carbon Dioxide 26 mEq/L (23-29); Chloride 102 mEq/L (98-107); Glucose 217 mg/dL (70-105); Osmolality,Calculated 291 (280-300); Potassium 3.6 mEq/L (3.5-5.1); Sodium 137 mEq/L (136-145); eGFR For African Americans > 60 (> 60); eGFR For Non-African Americans > 60 (> 60)
[2020-04-03] MEDS ORDERED: Tiotropium 18 MCG inhalation IH SCH (07:00)
[2020-04-03] MEDS ORDERED: (Roflumilast [Daliresp] 500 MCG) PO SCH (09:00)
[2020-04-03] MEDS ORDERED: Psyllium 1 PACKET POWD.PACK PO SCH (09:00)
[2020-04-03] MEDS ORDERED: Loratadine 10 MG TABLET PO SCH (09:00)
[2020-04-03] MEDS ORDERED: Magnesium Oxide 400 MG TABLET PO SCH (09:00)
[2020-04-03] MEDS ORDERED: Aspirin 81 MG TAB.CHEW PO SCH (09:00)
[2020-04-03] MEDS: Piperacillin/Tazobactam 3.375 GM in 0.9 % Sodium Chloride Mini Bag 100 ML IVPB SCH ×2 (09:15→17:17)
[2020-04-03] MEDS: Ondansetron 4 MG/2 ML VIAL IVP PRN ×2 (09:16→20:13)
[2020-04-03] MEDS: Furosemide 40 MG TABLET PO SCH ×2 (09:17→17:17)
[2020-04-03] MEDS: Fluticasone Propionate Nasal 50 MCG/SPRAY BOTTLE NS SCH (09:18)
[2020-04-03] MEDS: predniSONE 5 MG TABLET PO SCH ×2 (09:18→20:13)
[2020-04-03] MEDS: Insulin DETEMIR 100 UNIT/ML X5UNITS SQ SCH (09:18)
[2020-04-03] MEDS: Insulin LISPRO 300 UNITS/3 ML VIAL SQ SCH ×4 (09:19→20:15)
[2020-04-03] MEDS: Budesonide/Formoterol 160/4.5 1 PUFF INH IH SCH ×2 (10:29→21:31)
[2020-04-03] MEDS ORDERED: polyethylene glycoL 3350 17 GM POWD.PACK PO SCH (14:15)
[2020-04-03] MEDS: rOPINIRole 0.25 MG TABLET PO SCH (20:11)
[2020-04-04] MEDS: Piperacillin/Tazobactam 3.375 GM in 0.9 % Sodium Chloride Mini Bag 100 ML IVPB SCH (00:15)
[2020-04-04] MEDS: Ipratropium/Albuterol Neb 3 ML IH SCH ×2 (03:28→10:30)
[2020-04-04] MEDS: *HR* Heparin 5,000 UNIT/ML VIAL SQ SCH (05:29)
[2020-04-04] MEDS: Insulin LISPRO 300 UNITS/3 ML VIAL SQ SCH (09:47)
[2020-04-04] MEDS: Ondansetron 4 MG/2 ML VIAL IVP PRN (10:01)
[2020-04-04] MEDS: Budesonide/Formoterol 160/4.5 1 PUFF INH IH SCH (10:31)
[2020-04-04 10:34] VITALS: BP 150/62
== END 2020-04-04 11:35 | disposition home health service (06) | DRG 872 ==
LOC: EMEROOARM 22:49 → 3ANU 22:49 → SUATTDRO 04-01 13:49
PROVIDERS: ADMIT Internal Medicine; ATTEND Internal Medicine

== ENCOUNTER 2020-11-10 17:08 | Inpatient (IN) ==
[2020-11-10] MEDS ORDERED: Acetaminophen 325 MG TABLET PO ONE (17:21)
[2020-11-10] MEDS ORDERED: Ipratropium/Albuterol Neb 3 ML IH ONE (17:34)
[2020-11-10 17:50] LABS: Basophils % 0.5 %; Mean Platelet Volume 8.7 fL (9.4-12.4); Monocytes % 11.1 %; Red Cell Distribution Width 18.7 % (11.5-14.5)
[2020-11-10 17:51] LABS: Basophils # 0.1 K/mcL (0.0-0.2); Eosinophils # 0.1 K/mcL (0.0-0.6); Eosinophils % 0.7 %; Hematocrit 33.8 % (37.5-50.1); Hemoglobin 9.3 g/dL (12.9-16.9); Lymphocytes % 7.3 %; Mean Corpuscular HGB Conc 27.5 g/dL (31.6-35.5); Mean Corpuscular Hemoglobin 19.5 pg (28.0-33.3); Mean Corpuscular Volume 70.9 fL (83.0-100.0); Monocytes # 1.5 K/mcL (0.0-1.3); Neutrophils # 10.6 K/mcL (1.6-8.9); Nucleated Red Blood Cells 0.1 /100 WBC (0); Platelet Count 460 K/mcL (140-400); Red Blood Count 4.77 M/mcL (4.19-5.50); Segmented Neutrophils % 79.4 %; White Blood Count 13.4 K/mcL (4.3-11.1)
[2020-11-10 18:09] LABS: Hypochromasia Present (Not Present); Microcytosis Present (Not Present)
[2020-11-10 18:10] LABS: Alanine Aminotransferase 17 Units/L (7-52); Albumin 3.8 g/dL (3.5-5.7); Albumin/Globulin Ratio 1.2 (1.1-2.2); Alkaline Phosphatase 85 Units/L (34-104); Aspartate Amino Transferase 16 Units/L (13-39); BUN/Creatinine Ratio 13 (6-26); Bilirubin,Direct 0.1 mg/dL (0.0-0.2); Bilirubin,Total 0.1 mg/dL (0.3-1.0); Blood Urea Nitrogen 13 mg/dL (8-23); Calcium 9.1 mg/dL (8.6-10.3); Carbon Dioxide 23 mEq/L (23-29); Chloride 101 mEq/L (98-107); Globulin 3.2 g/dL (2.4-3.5); Glucose 191 mg/dL (70-105); Magnesium 1.7 mg/dL (1.6-2.6); Osmolality,Calculated 283 (280-300); Ovalocytes 1+ (Not Present); Phosphorous 2.8 mg/dL (2.7-4.5); Platelet Estimate Normal (Normal); Polychromasia 1+ (Not Present); Potassium 3.9 mEq/L (3.5-5.1); Sodium 134 mEq/L (136-145); Stomatocytes 1+ (Not Present); Troponin I < 0.03 ng/mL (< 0.04); eGFR For African Americans > 60 (> 60); eGFR For Non-African Americans > 60 (> 60)
[2020-11-10] MEDS ORDERED: 0.9 % Sodium Chloride 1,000 ML IVC ONE (18:19)
[2020-11-10] MEDS ORDERED: Azithromycin 500 MG in D5% in Water 250 ML IVPB ONE (18:26)
[2020-11-10 19:05] LABS: Adenovirus Not Detected (Not Detect); Coronavirus 229E Not Detected (Not Detect); Coronavirus HKU1 Not Detected (Not Detect); Coronavirus NL63 Not Detected (Not Detect); Coronavirus OC43 Not Detected (Not Detect)
[2020-11-10 19:07] LABS: Bordetella Pertussis Not Detected (Not Detect); Chlamydophila pneumoniae Not Detected (Not Detect); Human Metapneumovirus Not Detected (Not Detect); Human Rhinovirus/Enterovirus Not Detected (Not Detect); Influenza A Subtype 2009 H1 Not Detected (Not Detect); Influenza B Not Detected (Not Detect); Mycoplasma pneumoniae Not Detected (Not Detect); Parainfluenza Virus 1 Not Detected (Not Detect); Parainfluenza Virus 2 Not Detected (Not Detect); Parainfluenza Virus 3 Not Detected (Not Detect); Parainfluenza Virus 4 Not Detected (Not Detect); Respiratory Syncytial Virus Not Detected (Not Detect); SARS-CoV-2 DETECTED (Not Detect)
[2020-11-10] MEDS ORDERED: Acetaminophen 325 MG TABLET PO PRN (20:34)
[2020-11-10] MEDS ORDERED: Naloxone 0.4 MG/ML INJ IVP PRN (20:34)
[2020-11-10] MEDS ORDERED: Ondansetron 4 MG/2 ML VIAL IVP PRN (20:34)
[2020-11-10 20:58] LABS: Creatine Kinase 38 Units/L (30-223)
[2020-11-10] MEDS ORDERED: D5% in Water 1,000 ML IVC PRN (22:26)
[2020-11-10] MEDS ORDERED: Dextrose Gel 15 GM/37.5 ML TUBE PO PRN ×2 (22:26)
[2020-11-10] MEDS ORDERED: *HR* Dextrose 50 % in Water (Vial) 50 ML VIAL IVP PRN (22:26)
[2020-11-10] MEDS: Insulin LISPRO 300 UNITS/3 ML VIAL SUBQ SCH (23:42)
[2020-11-11] MEDS: Ipratropium 1 PUFF INHALER IH SCH ×7 (00:14→23:51)
[2020-11-11 02:39] LABS: Hemoglobin 8.7 g/dL (12.9-16.9)
[2020-11-11 02:40] LABS: Hematocrit 31.6 % (37.5-50.1); Mean Corpuscular HGB Conc 27.5 g/dL (31.6-35.5); Mean Corpuscular Hemoglobin 19.3 pg (28.0-33.3); Mean Corpuscular Volume 70.2 fL (83.0-100.0); Mean Platelet Volume 8.6 fL (9.4-12.4); Platelet Count 450 K/mcL (140-400); Red Cell Distribution Width 18.7 % (11.5-14.5); White Blood Count 10.1 K/mcL (4.3-11.1)
[2020-11-11 03:01] LABS: BUN/Creatinine Ratio 15 (6-26); Blood Urea Nitrogen 14 mg/dL (8-23); C-Reactive Protein 37 mg/L (Less than 10); Calcium 8.7 mg/dL (8.6-10.3); Carbon Dioxide 22 mEq/L (23-29); Chloride 103 mEq/L (98-107); Glucose 234 mg/dL (70-105); Osmolality,Calculated 290 (280-300); Potassium 4.4 mEq/L (3.5-5.1); Sodium 136 mEq/L (136-145); eGFR For African Americans > 60 (> 60); eGFR For Non-African Americans > 60 (> 60)
[2020-11-11 03:18] LABS: Ferritin 16 ng/mL (20-250)
[2020-11-11] MEDS ORDERED: *HR* Heparin 5,000 UNIT/ML VIAL SQ SCH (06:00)
[2020-11-11] MEDS ORDERED: Azithromycin 500 MG in 0.9 % Sodium Chloride 250 ML IVPB SCH (09:00)
[2020-11-11] MEDS: Insulin LISPRO 300 UNITS/3 ML VIAL SUBQ SCH ×3 (09:07→16:25)
[2020-11-11] MEDS: *HR* Enoxaparin 40 MG/0.4 ML SYRINGE SQ SCH ×2 (09:15→20:10)
[2020-11-11] MEDS: Dexamethasone Sodium Phos/PF 10 MG/ML VIAL IVP SCH (12:06)
[2020-11-11] MEDS: Furosemide 20 MG/2 ML VIAL IVP SCH ×2 (12:06→20:10)
[2020-11-11] MEDS: Iron Sucrose Complex 250 MG in 0.9 % Sodium Chloride 250 ML IVPB SCH (12:35)
[2020-11-11] MEDS: *HR* OxyCODONE Immed Rel 5 MG TABLET PO PRN (16:24)
[2020-11-11] MEDS ORDERED: clonazePAM 0.5 MG TABLET PO PRN (16:45)
[2020-11-11] MEDS: Insulin DETEMIR 100 UNIT/ML X5UNITS SUBQ SCH (18:09)
[2020-11-12 02:26] LABS: Hematocrit 31.8 % (37.5-50.1); Hemoglobin 8.6 g/dL (12.9-16.9); Mean Corpuscular Hemoglobin 18.9 pg (28.0-33.3); Mean Platelet Volume 8.8 fL (9.4-12.4); Platelet Count 445 K/mcL (140-400); Red Blood Count 4.54 M/mcL (4.19-5.50); Red Cell Distribution Width 18.7 % (11.5-14.5); White Blood Count 8.4 K/mcL (4.3-11.1)
[2020-11-12 02:47] LABS: BUN/Creatinine Ratio 23 (6-26); Blood Urea Nitrogen 22 mg/dL (8-23); Calcium 8.8 mg/dL (8.6-10.3); Carbon Dioxide 25 mEq/L (23-29); Chloride 102 mEq/L (98-107); Glucose 241 mg/dL (70-105); Osmolality,Calculated 295 (280-300); Potassium 3.9 mEq/L (3.5-5.1); Sodium 137 mEq/L (136-145); eGFR For African Americans > 60 (> 60); eGFR For Non-African Americans > 60 (> 60)
[2020-11-12] MEDS: Ipratropium 1 PUFF INHALER IH SCH ×3 (03:48→11:47)
[2020-11-12] MEDS: Insulin LISPRO 300 UNITS/3 ML VIAL SUBQ SCH ×2 (08:57→11:56)
[2020-11-12] MEDS: Insulin DETEMIR 100 UNIT/ML X5UNITS SUBQ SCH (08:58)
[2020-11-12] MEDS: *HR* Enoxaparin 40 MG/0.4 ML SYRINGE SQ SCH (08:58)
[2020-11-12] MEDS: Dexamethasone Sodium Phos/PF 10 MG/ML VIAL IVP SCH (08:59)
[2020-11-12] MEDS: Furosemide 20 MG/2 ML VIAL IVP SCH (08:59)
[2020-11-12] MEDS ORDERED: Loratadine 10 MG TABLET PO SCH (09:00)
[2020-11-12] MEDS ORDERED: Azithromycin 250 MG TABLET PO SCH (09:00)
[2020-11-12] MEDS ORDERED: Aspirin 81 MG TAB.CHEW PO SCH (09:00)
[2020-11-12] MEDS: Iron Sucrose Complex 250 MG in 0.9 % Sodium Chloride 250 ML IVPB SCH (09:00)
[2020-11-12] MEDS: *HR* OxyCODONE Immed Rel 5 MG TABLET PO PRN (09:00)
[2020-11-12 17:04] VITALS: BP 125/66
== END 2020-11-12 16:14 | disposition critical access hospital (66) | DRG 871 ==
LOC: 2NENU 17:08 → EMEROOARM 17:08 → 2NENU 20:43 → SUATTDRO 11-11 13:20
PROVIDERS: ADMIT Student in an Organized Health Care Education/Training Program; ATTEND Internal Medicine

== ENCOUNTER 2020-12-01 13:55 | Inpatient (IN) ==
[2020-12-01] MEDS ORDERED: Ipratropium/Albuterol Neb 3 ML IH ONE (14:20)
[2020-12-01] MEDS ORDERED: Isovue-370 500 ML BOTTLE IVP ONE (14:20)
[2020-12-01] MEDS ORDERED: methylPREDNISolone 125 MG/2 ML VIAL IVP ONE (14:20)
[2020-12-01 14:49] LABS: Mean Corpuscular HGB Conc 27.7 g/dL (31.6-35.5)
[2020-12-01 14:57] LABS: Prothrombin Time 11.8 Seconds (9.4-12.1)
[2020-12-01] MEDS ORDERED: 0.9 % Sodium Chloride 1,000 ML IVC ONE ×2 (14:59→16:32)
[2020-12-01] MEDS ORDERED: 0.9 % Sodium Chloride 1,000 ML IVC SCH ×2 (15:00→20:30)
[2020-12-01 15:01] LABS: Bilirubin,Urine Negative (Negative); Blood,Urine Small (Negative); Clarity,Urine Clear (Clear); Color,Urine Light-Yellow (Yellow); Glucose,Urine (UA) >=1000 mg/dL (Normal); Hyaline Casts,Urine Few per lpf (None Seen); Ketones,Urine Negative (Negative); Leukocyte Esterase,Urine Negative (Negative); Nitrite,Urine Negative (Negative); Protein,Urine Negative (Neg-Trace); RBC,Urine 15-30 per hpf (0-3); Specific Gravity,Urine 1.017 (1.010-1.025); Squamous Epithelial Cell,Urine Few per hpf (None-Few); Urobilinogen,Urine Normal (Normal); WBC,Urine 0-3 per hpf (0-3)
[2020-12-01 15:02] LABS: Hematocrit 40.5 % (37.5-50.1); Hemoglobin 11.2 g/dL (12.9-16.9); Mean Corpuscular Hemoglobin 20.3 pg (28.0-33.3); Mean Corpuscular Volume 73.5 fL (83.0-100.0); Mean Platelet Volume 9.1 fL (9.4-12.4); Nucleated Red Blood Cells 0.2 /100 WBC (0); Platelet Count 471 K/mcL (140-400); Red Blood Count 5.51 M/mcL (4.19-5.50); White Blood Count 21.3 K/mcL (4.3-11.1)
[2020-12-01 15:05] LABS: BUN/Creatinine Ratio 15 (6-26); Blood Urea Nitrogen 16 mg/dL (8-23); Calcium 9.5 mg/dL (8.6-10.3); Carbon Dioxide 24 mEq/L (23-29); Chloride 99 mEq/L (98-107); Glucose 198 mg/dL (70-105); Osmolality,Calculated 293 (280-300); Potassium 4.3 mEq/L (3.5-5.1); Sodium 138 mEq/L (136-145); Troponin I 0.03 ng/mL (< 0.04); eGFR For African Americans > 60 (> 60); eGFR For Non-African Americans > 60 (> 60)
[2020-12-01] MEDS ORDERED: Vancomycin 1,750 MG/517.5 ML IV.SOLN IVPB ONE (15:17)
[2020-12-01] MEDS ORDERED: Piperacillin/Tazobactam 3.375 GM in 0.9 % Sodium Chloride Mini Bag 100 ML IVPB ONE (15:17)
[2020-12-01 16:13] LABS: Lymphocytes # 0.9 K/mcL (0.6-4.6); Monocytes # 0.2 K/mcL (0.0-1.3); Neutrophils # 19.6 K/mcL (1.6-8.9)
[2020-12-01 16:14] LABS: Anisocytosis 3+ (Not Present); Hypochromasia Present (Not Present); Platelet Estimate Increased (Normal); Toxic Granulation Present (Not Present)
[2020-12-01 16:17] LABS: Polychromasia 1+ (Not Present)
[2020-12-01] MEDS ORDERED: *HR* Heparin 5,000 UNIT/ML VIAL IVP ONE (16:30)
[2020-12-01] MEDS ORDERED: Heparin 25,000UNIT/250ML 1/2NS 25,000 UNIT/250 ML IV.SOLN IVC SCH (16:30)
[2020-12-01] MEDS ORDERED: *HR* Heparin 5,000 UNIT/ML VIAL IVP PRN ×2 (16:30)
[2020-12-01] MEDS ORDERED: *HR* Dextrose 50 % in Water (Vial) 50 ML VIAL IVP PRN (21:23)
[2020-12-01] MEDS ORDERED: D5% in Water 1,000 ML IVC PRN (21:23)
[2020-12-01] MEDS ORDERED: Dextrose Gel 15 GM/37.5 ML TUBE PO PRN ×2 (21:23)
[2020-12-01] MEDS: *HR* Rivaroxaban 15 MG TABLET PO SCH (21:24)
[2020-12-01] MEDS ORDERED: Insulin LISPRO 300 UNITS/3 ML VIAL SUBQ ONE (21:46)
[2020-12-01] MEDS: Piperacillin/Tazobactam 3.375 GM in 0.9 % Sodium Chloride Mini Bag 100 ML IVPB SCH (23:02)
[2020-12-02 03:25] LABS: Red Blood Count 4.52 M/mcL (4.19-5.50)
[2020-12-02 03:27] LABS: Hematocrit 32.3 % (37.5-50.1); Hemoglobin 9.1 g/dL (12.9-16.9); Mean Corpuscular HGB Conc 28.2 g/dL (31.6-35.5); Mean Corpuscular Hemoglobin 20.1 pg (28.0-33.3); Mean Corpuscular Volume 71.5 fL (83.0-100.0); Mean Platelet Volume 8.8 fL (9.4-12.4); Platelet Count 325 K/mcL (140-400); Red Cell Distribution Width 22.3 % (11.5-14.5); White Blood Count 12.3 K/mcL (4.3-11.1)
[2020-12-02 03:41] LABS: BUN/Creatinine Ratio 17 (6-26); Blood Urea Nitrogen 14 mg/dL (8-23); Calcium 8.3 mg/dL (8.6-10.3); Carbon Dioxide 25 mEq/L (23-29); Chloride 105 mEq/L (98-107); Glucose 232 mg/dL (70-105); Magnesium 2.1 mg/dL (1.6-2.6); Osmolality,Calculated 296 (280-300); Potassium 4.1 mEq/L (3.5-5.1); Sodium 139 mEq/L (136-145); eGFR For African Americans > 60 (> 60); eGFR For Non-African Americans > 60 (> 60)
[2020-12-02] MEDS: *HR* Rivaroxaban 15 MG TABLET PO SCH ×2 (05:06→17:21)
[2020-12-02] MEDS: Insulin LISPRO 300 UNITS/3 ML VIAL SUBQ SCH ×4 (08:58→19:29)
[2020-12-02] MEDS: Piperacillin/Tazobactam 3.375 GM in 0.9 % Sodium Chloride Mini Bag 100 ML IVPB SCH (08:59)
[2020-12-02] MEDS: Acetaminophen 325 MG TABLET PO PRN (12:21)
[2020-12-02] MEDS: Aspirin 81 MG TAB.CHEW PO SCH (15:09)
[2020-12-02] MEDS: clonazePAM 0.5 MG TABLET PO PRN ×2 (15:09→23:49)
[2020-12-02] MEDS: Ipratropium/Albuterol Neb 3 ML IH PRN ×2 (16:10→20:11)
[2020-12-02] MEDS: rOPINIRole 0.25 MG TABLET PO SCH (19:47)
[2020-12-02] MEDS: Budesonide/Formoterol 160/4.5 1 PUFF INH IH SCH (20:10)
[2020-12-03 05:23] LABS: Hematocrit 34.1 % (37.5-50.1); Hemoglobin 9.4 g/dL (12.9-16.9); Mean Corpuscular HGB Conc 27.6 g/dL (31.6-35.5); Mean Corpuscular Hemoglobin 20.7 pg (28.0-33.3); Mean Corpuscular Volume 74.9 fL (83.0-100.0); Mean Platelet Volume 9.3 fL (9.4-12.4); Platelet Count 260 K/mcL (140-400); Red Blood Count 4.55 M/mcL (4.19-5.50)
[2020-12-03 05:42] LABS: BUN/Creatinine Ratio 19 (6-26); Blood Urea Nitrogen 16 mg/dL (8-23); Calcium 8.7 mg/dL (8.6-10.3); Carbon Dioxide 25 mEq/L (23-29); Chloride 102 mEq/L (98-107); Glucose 128 mg/dL (70-105); Magnesium 1.8 mg/dL (1.6-2.6); Osmolality,Calculated 283 (280-300); Potassium 4.2 mEq/L (3.5-5.1); Sodium 135 mEq/L (136-145); eGFR For African Americans > 60 (> 60); eGFR For Non-African Americans > 60 (> 60)
[2020-12-03] MEDS: *HR* Rivaroxaban 15 MG TABLET PO SCH ×2 (06:26→17:48)
[2020-12-03] MEDS: Ipratropium/Albuterol Neb 3 ML IH PRN ×3 (07:24→20:15)
[2020-12-03] MEDS: Budesonide/Formoterol 160/4.5 1 PUFF INH IH SCH ×2 (07:24→20:15)
[2020-12-03] MEDS: Ondansetron 4 MG/2 ML VIAL IVP PRN (08:17)
[2020-12-03] MEDS: Insulin LISPRO 300 UNITS/3 ML VIAL SUBQ SCH ×4 (08:18→19:49)
[2020-12-03] MEDS: Loratadine 10 MG TABLET PO SCH (08:23)
[2020-12-03] MEDS: Aspirin 81 MG TAB.CHEW PO SCH (08:23)
[2020-12-03] MEDS: Furosemide 20 MG TABLET PO SCH (08:24)
[2020-12-03] MEDS: clonazePAM 0.5 MG TABLET PO PRN ×2 (08:28→20:18)
[2020-12-03] MEDS: Acetaminophen 325 MG TABLET PO PRN (18:51)
[2020-12-03] MEDS: rOPINIRole 0.25 MG TABLET PO SCH (19:55)
[2020-12-04 02:59] LABS: Hematocrit 35.3 % (37.5-50.1); Hemoglobin 9.7 g/dL (12.9-16.9); Mean Corpuscular HGB Conc 27.5 g/dL (31.6-35.5); Mean Corpuscular Hemoglobin 20.7 pg (28.0-33.3); Mean Corpuscular Volume 75.3 fL (83.0-100.0); Mean Platelet Volume 8.9 fL (9.4-12.4); Platelet Count 244 K/mcL (140-400); Red Blood Count 4.69 M/mcL (4.19-5.50); Red Cell Distribution Width 22.6 % (11.5-14.5); White Blood Count 9.7 K/mcL (4.3-11.1)
[2020-12-04 03:04] LABS: BUN/Creatinine Ratio 16 (6-26); Blood Urea Nitrogen 15 mg/dL (8-23); Calcium 8.5 mg/dL (8.6-10.3); Carbon Dioxide 27 mEq/L (23-29); Chloride 100 mEq/L (98-107); Glucose 167 mg/dL (70-105); Osmolality,Calculated 283 (280-300); Potassium 3.9 mEq/L (3.5-5.1); Sodium 134 mEq/L (136-145); eGFR For African Americans > 60 (> 60); eGFR For Non-African Americans > 60 (> 60)
[2020-12-04] MEDS: *HR* Rivaroxaban 15 MG TABLET PO SCH ×2 (05:15→17:05)
[2020-12-04] MEDS: Budesonide/Formoterol 160/4.5 1 PUFF INH IH SCH ×2 (07:32→20:13)
[2020-12-04] MEDS: Loratadine 10 MG TABLET PO SCH (09:17)
[2020-12-04] MEDS: Furosemide 20 MG TABLET PO SCH (09:17)
[2020-12-04] MEDS: Aspirin 81 MG TAB.CHEW PO SCH (09:17)
[2020-12-04] MEDS: Insulin LISPRO 300 UNITS/3 ML VIAL SUBQ SCH ×4 (09:18→20:31)
[2020-12-04] MEDS: Ipratropium/Albuterol Neb 3 ML IH PRN (11:06)
[2020-12-04] MEDS: predniSONE 20 MG TABLET PO SCH (13:49)
[2020-12-04] MEDS: Furosemide 20 MG/2 ML VIAL IVP SCH (13:49)
[2020-12-04] MEDS: Ipratropium/Albuterol Neb 3 ML IH SCH ×4 (14:00→23:14)
[2020-12-04] MEDS ORDERED: Naloxone 0.4 MG/ML INJ IVP PRN (15:04)
[2020-12-04] MEDS: rOPINIRole 0.25 MG TABLET PO SCH (20:20)
[2020-12-04] MEDS: clonazePAM 0.5 MG TABLET PO PRN (22:51)
[2020-12-05] MEDS: Ipratropium/Albuterol Neb 3 ML IH SCH ×6 (03:43→23:09)
[2020-12-05 05:31] LABS: Red Blood Count 4.65 M/mcL (4.19-5.50)
[2020-12-05 05:33] LABS: Hematocrit 34.8 % (37.5-50.1); Hemoglobin 9.7 g/dL (12.9-16.9); Mean Corpuscular HGB Conc 27.9 g/dL (31.6-35.5); Mean Corpuscular Hemoglobin 20.9 pg (28.0-33.3); Mean Corpuscular Volume 74.8 fL (83.0-100.0); Mean Platelet Volume 8.9 fL (9.4-12.4); Platelet Count 252 K/mcL (140-400); Red Cell Distribution Width 23.1 % (11.5-14.5); White Blood Count 10.9 K/mcL (4.3-11.1)
[2020-12-05 06:01] LABS: BUN/Creatinine Ratio 28 (6-26); Blood Urea Nitrogen 22 mg/dL (8-23); Carbon Dioxide 28 mEq/L (23-29); Chloride 99 mEq/L (98-107); Glucose 302 mg/dL (70-105); Osmolality,Calculated 293 (280-300); Potassium 4.4 mEq/L (3.5-5.1); Sodium 134 mEq/L (136-145); eGFR For African Americans > 60 (> 60); eGFR For Non-African Americans > 60 (> 60)
[2020-12-05] MEDS: *HR* Rivaroxaban 15 MG TABLET PO SCH ×2 (06:10→17:33)
[2020-12-05] MEDS: Budesonide/Formoterol 160/4.5 1 PUFF INH IH SCH ×2 (07:42→20:06)
[2020-12-05] MEDS: Furosemide 20 MG/2 ML VIAL IVP SCH (08:55)
[2020-12-05] MEDS: Loratadine 10 MG TABLET PO SCH (08:55)
[2020-12-05] MEDS: Aspirin 81 MG TAB.CHEW PO SCH (08:56)
[2020-12-05] MEDS: predniSONE 20 MG TABLET PO SCH (08:56)
[2020-12-05] MEDS: clonazePAM 0.5 MG TABLET PO PRN ×2 (08:57→20:58)
[2020-12-05] MEDS: Insulin LISPRO 300 UNITS/3 ML VIAL SUBQ SCH ×4 (09:05→20:57)
[2020-12-05] MEDS: rOPINIRole 0.25 MG TABLET PO SCH (20:54)
[2020-12-05] MEDS: Insulin DETEMIR 100 UNIT/ML X5UNITS SUBQ SCH (20:55)
[2020-12-06 02:11] LABS: Hematocrit 34.7 % (37.5-50.1); Hemoglobin 9.7 g/dL (12.9-16.9); Mean Corpuscular Hemoglobin 20.5 pg (28.0-33.3); Mean Corpuscular Volume 73.4 fL (83.0-100.0); Mean Platelet Volume 9.2 fL (9.4-12.4); Platelet Count 281 K/mcL (140-400); Red Blood Count 4.73 M/mcL (4.19-5.50); White Blood Count 12.2 K/mcL (4.3-11.1)
[2020-12-06 02:29] LABS: BUN/Creatinine Ratio 27 (6-26); Blood Urea Nitrogen 23 mg/dL (8-23); Calcium 9.1 mg/dL (8.6-10.3); Carbon Dioxide 27 mEq/L (23-29); Chloride 98 mEq/L (98-107); Glucose 284 mg/dL (70-105); Osmolality,Calculated 292 (280-300); Potassium 4.2 mEq/L (3.5-5.1); Sodium 134 mEq/L (136-145); eGFR For African Americans > 60 (> 60); eGFR For Non-African Americans > 60 (> 60)
[2020-12-06] MEDS: Ipratropium/Albuterol Neb 3 ML IH SCH ×5 (03:42→20:38)
[2020-12-06] MEDS: Furosemide 20 MG/2 ML VIAL IVP SCH (07:37)
[2020-12-06] MEDS: Loratadine 10 MG TABLET PO SCH (07:38)
[2020-12-06] MEDS: predniSONE 20 MG TABLET PO SCH (07:38)
[2020-12-06] MEDS: *HR* Rivaroxaban 15 MG TABLET PO SCH ×2 (07:40→17:10)
[2020-12-06] MEDS: Aspirin 81 MG TAB.CHEW PO SCH (07:41)
[2020-12-06] MEDS: Insulin LISPRO 300 UNITS/3 ML VIAL SUBQ SCH ×4 (07:42→20:50)
[2020-12-06] MEDS: Budesonide/Formoterol 160/4.5 1 PUFF INH IH SCH ×2 (08:08→20:43)
[2020-12-06] MEDS: Tiotropium 10 INH DOSE IH SCH (08:10)
[2020-12-06] MEDS: Fluticasone Propionate Nasal 50 MCG/SPRAY BOTTLE NS SCH (14:49)
[2020-12-06] MEDS: Insulin DETEMIR 100 UNIT/ML X5UNITS SUBQ SCH (20:50)
[2020-12-06] MEDS: rOPINIRole 0.25 MG TABLET PO SCH (20:51)
[2020-12-06] MEDS: clonazePAM 0.5 MG TABLET PO PRN (21:08)
[2020-12-06] MEDS: Ondansetron 4 MG/2 ML VIAL IVP PRN (21:08)
[2020-12-06] MEDS ORDERED: Insulin LISPRO 300 UNITS/3 ML VIAL SUBQ ONE (23:46)
[2020-12-07] MEDS: Ipratropium/Albuterol Neb 3 ML IH SCH ×7 (00:11→22:53)
[2020-12-07 03:20] LABS: Alanine Aminotransferase 21 Units/L (7-52); Albumin 3.4 g/dL (3.5-5.7); Albumin/Globulin Ratio 1.1 (1.1-2.2); Alkaline Phosphatase 73 Units/L (34-104); Aspartate Amino Transferase 9 Units/L (13-39); BUN/Creatinine Ratio 29 (6-26); Bilirubin,Total 0.2 mg/dL (0.3-1.0); Blood Urea Nitrogen 22 mg/dL (8-23); Calcium 9.3 mg/dL (8.6-10.3); Carbon Dioxide 30 mEq/L (23-29); Chloride 99 mEq/L (98-107); Glucose 235 mg/dL (70-105); Osmolality,Calculated 293 (280-300); Potassium 4.1 mEq/L (3.5-5.1); Sodium 136 mEq/L (136-145); Total Protein 6.4 g/dL (6.4-8.9); eGFR For African Americans > 60 (> 60); eGFR For Non-African Americans > 60 (> 60)
[2020-12-07] MEDS: *HR* Rivaroxaban 15 MG TABLET PO SCH ×2 (05:05→17:00)
[2020-12-07] MEDS: predniSONE 20 MG TABLET PO SCH (07:29)
[2020-12-07] MEDS: Loratadine 10 MG TABLET PO SCH (07:29)
[2020-12-07] MEDS: Aspirin 81 MG TAB.CHEW PO SCH (07:29)
[2020-12-07] MEDS: Fluticasone Propionate Nasal 50 MCG/SPRAY BOTTLE NS SCH (07:30)
[2020-12-07] MEDS: Furosemide 20 MG/2 ML VIAL IVP SCH (07:30)
[2020-12-07] MEDS: Insulin LISPRO 300 UNITS/3 ML VIAL SUBQ SCH ×4 (07:30→21:38)
[2020-12-07] MEDS: Budesonide/Formoterol 160/4.5 1 PUFF INH IH SCH ×2 (07:48→20:16)
[2020-12-07] MEDS: Tiotropium 10 INH DOSE IH SCH (07:49)
[2020-12-07] MEDS: Insulin DETEMIR 100 UNIT/ML X5UNITS SUBQ SCH ×2 (08:31→21:37)
[2020-12-07] MEDS: clonazePAM 0.5 MG TABLET PO PRN (14:36)
[2020-12-07] MEDS: Menthol 9.1 MG LOZENGE PO PRN (15:19)
[2020-12-07] MEDS: rOPINIRole 0.25 MG TABLET PO SCH (21:37)
[2020-12-08] MEDS: Ipratropium/Albuterol Neb 3 ML IH SCH ×6 (04:02→23:15)
[2020-12-08 05:48] LABS: Alanine Aminotransferase 20 Units/L (7-52); Albumin 3.4 g/dL (3.5-5.7); Albumin/Globulin Ratio 1.3 (1.1-2.2); Alkaline Phosphatase 77 Units/L (34-104); Aspartate Amino Transferase 10 Units/L (13-39); BUN/Creatinine Ratio 30 (6-26); Bilirubin,Total 0.2 mg/dL (0.3-1.0); Blood Urea Nitrogen 26 mg/dL (8-23); Calcium 9.3 mg/dL (8.6-10.3); Carbon Dioxide 29 mEq/L (23-29); Chloride 98 mEq/L (98-107); Globulin 2.7 g/dL (2.4-3.5); Glucose 262 mg/dL (70-105); Osmolality,Calculated 296 (280-300); Sodium 136 mEq/L (136-145); Total Protein 6.1 g/dL (6.4-8.9); eGFR For African Americans > 60 (> 60); eGFR For Non-African Americans > 60 (> 60)
[2020-12-08] MEDS: *HR* Rivaroxaban 15 MG TABLET PO SCH ×2 (05:50→16:06)
[2020-12-08] MEDS: Tiotropium 10 INH DOSE IH SCH (07:31)
[2020-12-08] MEDS: Budesonide/Formoterol 160/4.5 1 PUFF INH IH SCH ×2 (07:31→20:05)
[2020-12-08] MEDS: Aspirin 81 MG TAB.CHEW PO SCH (08:52)
[2020-12-08] MEDS: clonazePAM 0.5 MG TABLET PO PRN ×2 (08:52→21:58)
[2020-12-08] MEDS: predniSONE 20 MG TABLET PO SCH (08:53)
[2020-12-08] MEDS: Loratadine 10 MG TABLET PO SCH (08:53)
[2020-12-08] MEDS: Insulin LISPRO 300 UNITS/3 ML VIAL SUBQ SCH ×4 (08:54→20:18)
[2020-12-08] MEDS: Fluticasone Propionate Nasal 50 MCG/SPRAY BOTTLE NS SCH (08:55)
[2020-12-08] MEDS: Furosemide 20 MG/2 ML VIAL IVP SCH ×2 (08:55→16:06)
[2020-12-08] MEDS: Insulin DETEMIR 100 UNIT/ML X5UNITS SUBQ SCH ×2 (09:03→20:17)
[2020-12-08] MEDS ORDERED: Perflutren Lipid Microsphere 1.3 ML in 0.9 % Sodium Chloride 8.7 ML IVP PRN (13:34)
[2020-12-08] MEDS: Menthol 9.1 MG LOZENGE PO PRN (16:13)
[2020-12-08] MEDS ORDERED: Furosemide 20 MG/2 ML VIAL IVP SCH (17:00)
[2020-12-08] MEDS: rOPINIRole 0.25 MG TABLET PO SCH (20:08)
[2020-12-08] MEDS ORDERED: Saline Nasal Spray 44 ML BOTTLE NS PRN (21:34)
[2020-12-09] MEDS: Ipratropium/Albuterol Neb 3 ML IH SCH ×6 (04:02→23:01)
[2020-12-09] MEDS: *HR* Rivaroxaban 15 MG TABLET PO SCH ×2 (05:22→17:32)
[2020-12-09] MEDS: Tiotropium 10 INH DOSE IH SCH (07:35)
[2020-12-09] MEDS: Budesonide/Formoterol 160/4.5 1 PUFF INH IH SCH ×2 (07:36→19:49)
[2020-12-09] MEDS: Loratadine 10 MG TABLET PO SCH (08:01)
[2020-12-09] MEDS: Furosemide 20 MG/2 ML VIAL IVP SCH ×2 (08:02→17:32)
[2020-12-09] MEDS: Aspirin 81 MG TAB.CHEW PO SCH (08:02)
[2020-12-09] MEDS: predniSONE 20 MG TABLET PO SCH (08:02)
[2020-12-09] MEDS: Insulin LISPRO 300 UNITS/3 ML VIAL SUBQ SCH ×5 (08:03→20:26)
[2020-12-09] MEDS: Fluticasone Propionate Nasal 50 MCG/SPRAY BOTTLE NS SCH (08:08)
[2020-12-09] MEDS: Insulin DETEMIR 100 UNIT/ML X5UNITS SUBQ SCH ×2 (08:08→20:25)
[2020-12-09 10:03] LABS: Alkaline Phosphatase 66 Units/L (34-104); Aspartate Amino Transferase 10 Units/L (13-39); BUN/Creatinine Ratio 31 (6-26); Bilirubin,Total 0.1 mg/dL (0.3-1.0); Blood Urea Nitrogen 28 mg/dL (8-23); Calcium 9.6 mg/dL (8.6-10.3); Carbon Dioxide 30 mEq/L (23-29); Chloride 95 mEq/L (98-107); Glucose 260 mg/dL (70-105); Osmolality,Calculated 296 (280-300); Potassium 3.7 mEq/L (3.5-5.1); Sodium 136 mEq/L (136-145); eGFR For African Americans > 60 (> 60); eGFR For Non-African Americans > 60 (> 60)
[2020-12-09 10:05] LABS: Albumin 3.4 g/dL (3.5-5.7); Albumin/Globulin Ratio 1.3 (1.1-2.2); Globulin 2.7 g/dL (2.4-3.5); Total Protein 6.1 g/dL (6.4-8.9)
[2020-12-09 10:57] LABS: Alanine Aminotransferase 22 Units/L (7-52)
[2020-12-09] MEDS: Menthol 9.1 MG LOZENGE PO PRN (14:58)
[2020-12-09] MEDS: Acetaminophen 325 MG TABLET PO PRN (17:49)
[2020-12-09] MEDS ORDERED: predniSONE 20 MG TABLET PO ONE (18:00)
[2020-12-09] MEDS: clonazePAM 0.5 MG TABLET PO PRN (20:24)
[2020-12-09] MEDS: rOPINIRole 0.25 MG TABLET PO SCH (20:24)
[2020-12-10 03:06] LABS: Monocytes % 5.4 %
[2020-12-10 03:07] LABS: Basophils # 0.1 K/mcL (0.0-0.2); Basophils % 0.5 %; Eosinophils % 0.2 %; Hematocrit 33.6 % (37.5-50.1); Hemoglobin 9.5 g/dL (12.9-16.9); Immature Granulocytes % 2.6 % (0-4); Lymphocytes % 8.8 %; Mean Corpuscular HGB Conc 28.3 g/dL (31.6-35.5); Mean Corpuscular Volume 74.3 fL (83.0-100.0); Mean Platelet Volume 8.7 fL (9.4-12.4); Monocytes # 0.6 K/mcL (0.0-1.3); Platelet Count 281 K/mcL (140-400); Red Blood Count 4.52 M/mcL (4.19-5.50); Segmented Neutrophils % 82.5 %; White Blood Count 10.9 K/mcL (4.3-11.1)
[2020-12-10 03:12] LABS: BUN/Creatinine Ratio 33 (6-26); Blood Urea Nitrogen 28 mg/dL (8-23); Calcium 9.1 mg/dL (8.6-10.3); Carbon Dioxide 32 mEq/L (23-29); Chloride 94 mEq/L (98-107); Glucose 225 mg/dL (70-105); Osmolality,Calculated 291 (280-300); Sodium 134 mEq/L (136-145); eGFR For African Americans > 60 (> 60); eGFR For Non-African Americans > 60 (> 60)
[2020-12-10 03:31] LABS: Platelet Estimate Normal (Normal)
[2020-12-10 03:32] LABS: Anisocytosis 1+ (Not Present); Hypochromasia Present (Not Present); Poikilocytosis 1+ (Not Present)
[2020-12-10] MEDS: Ipratropium/Albuterol Neb 3 ML IH SCH ×5 (03:58→20:26)
[2020-12-10] MEDS: *HR* Rivaroxaban 15 MG TABLET PO SCH ×2 (05:11→17:38)
[2020-12-10] MEDS: Tiotropium 10 INH DOSE IH SCH (07:57)
[2020-12-10] MEDS: Aspirin 81 MG TAB.CHEW PO SCH (08:44)
[2020-12-10] MEDS: Loratadine 10 MG TABLET PO SCH (08:45)
[2020-12-10] MEDS: Furosemide 20 MG/2 ML VIAL IVP SCH ×2 (08:46→17:39)
[2020-12-10] MEDS: Fluticasone Propionate Nasal 50 MCG/SPRAY BOTTLE NS SCH (08:46)
[2020-12-10] MEDS: Insulin LISPRO 300 UNITS/3 ML VIAL SUBQ SCH ×7 (08:49→20:56)
[2020-12-10] MEDS: Insulin DETEMIR 100 UNIT/ML X5UNITS SUBQ SCH ×2 (08:49→20:56)
[2020-12-10] MEDS: Acetaminophen 325 MG TABLET PO PRN (08:55)
[2020-12-10] MEDS: Menthol 9.1 MG LOZENGE PO PRN ×2 (08:56→17:47)
[2020-12-10] MEDS: Budesonide/Formoterol 160/4.5 1 PUFF INH IH SCH ×2 (10:59→20:27)
[2020-12-10] MEDS ORDERED: MethylPREDNISolone 40 MG/ML VIAL IVP SCH (11:00)
[2020-12-10] MEDS: predniSONE 20 MG TABLET PO SCH (12:11)
[2020-12-10] MEDS: rOPINIRole 0.25 MG TABLET PO SCH (20:55)
[2020-12-10] MEDS: clonazePAM 0.5 MG TABLET PO PRN (22:10)
[2020-12-10] MEDS: *HR* Acetylcysteine 20% 600 MG/3 ML ORAL SYRINGE PO SCH (22:39)
[2020-12-11] MEDS: Ipratropium/Albuterol Neb 3 ML IH SCH ×4 (00:18→11:27)
[2020-12-11] MEDS: *HR* Rivaroxaban 15 MG TABLET PO SCH (05:20)
[2020-12-11 05:28] LABS: Basophils % 0.4 %; Lymphocytes % 13.3 %; Monocytes % 7.3 %
[2020-12-11 05:30] LABS: Basophils # 0.1 K/mcL (0.0-0.2); Eosinophils # 0.1 K/mcL (0.0-0.6); Eosinophils % 1.2 %; Hematocrit 33.8 % (37.5-50.1); Hemoglobin 9.7 g/dL (12.9-16.9); Immature Granulocytes % 1.9 % (0-4); Lymphocytes # 1.5 K/mcL (0.6-4.6); Mean Corpuscular HGB Conc 28.7 g/dL (31.6-35.5); Mean Corpuscular Hemoglobin 21.3 pg (28.0-33.3); Mean Corpuscular Volume 74.3 fL (83.0-100.0); Mean Platelet Volume 8.9 fL (9.4-12.4); Monocytes # 0.8 K/mcL (0.0-1.3); Neutrophils # 8.7 K/mcL (1.6-8.9); Platelet Count 309 K/mcL (140-400); Red Blood Count 4.55 M/mcL (4.19-5.50); Red Cell Distribution Width 24.2 % (11.5-14.5); Segmented Neutrophils % 75.9 %; White Blood Count 11.4 K/mcL (4.3-11.1)
[2020-12-11 05:47] LABS: BUN/Creatinine Ratio 29 (6-26); Blood Urea Nitrogen 28 mg/dL (8-23); Calcium 8.9 mg/dL (8.6-10.3); Carbon Dioxide 33 mEq/L (23-29); Chloride 92 mEq/L (98-107); Glucose 211 mg/dL (70-105); Osmolality,Calculated 292 (280-300); Potassium 3.3 mEq/L (3.5-5.1); Sodium 135 mEq/L (136-145); eGFR For African Americans > 60 (> 60); eGFR For Non-African Americans > 60 (> 60)
[2020-12-11 06:24] LABS: Anisocytosis 1+ (Not Present); Hypochromasia Present (Not Present)
[2020-12-11 06:25] LABS: Microcytosis Present (Not Present); Platelet Estimate Normal (Normal); Poikilocytosis 1+ (Not Present)
[2020-12-11 07:07] VITALS: BP 153/84
[2020-12-11] MEDS: Budesonide/Formoterol 160/4.5 1 PUFF INH IH SCH (07:30)
[2020-12-11] MEDS: Tiotropium 10 INH DOSE IH SCH (07:31)
[2020-12-11] MEDS: predniSONE 20 MG TABLET PO SCH (08:13)
[2020-12-11] MEDS: Loratadine 10 MG TABLET PO SCH (08:14)
[2020-12-11] MEDS: Furosemide 20 MG/2 ML VIAL IVP SCH (08:14)
[2020-12-11] MEDS: Aspirin 81 MG TAB.CHEW PO SCH (08:14)
[2020-12-11] MEDS: Insulin LISPRO 300 UNITS/3 ML VIAL SUBQ SCH ×4 (08:15→12:13)
[2020-12-11] MEDS: *HR* Acetylcysteine 20% 600 MG/3 ML ORAL SYRINGE PO SCH (10:05)
[2020-12-11] MEDS: Insulin DETEMIR 100 UNIT/ML X5UNITS SUBQ SCH (10:07)
[2020-12-11] MEDS: Fluticasone Propionate Nasal 50 MCG/SPRAY BOTTLE NS SCH (10:08)
== END 2020-12-11 13:25 | DRG 177 ==
LOC: EMEROOARM 13:55 → 2NENU 13:55 → SUATTDRO 12-02 14:48
PROVIDERS: ADMIT Internal Medicine; ATTEND Family Medicine

== ENCOUNTER 2021-06-18 12:51 | Inpatient (IN) ==
[2021-06-18] MEDS ORDERED: predniSONE 20 MG TABLET PO ONE (13:32)
[2021-06-18 13:37] LABS: Hematocrit 27.7 % (37.5-50.1); Mean Platelet Volume 8.7 fL (9.4-12.4); Nucleated Red Blood Cells 0.2 /100 WBC (0)
[2021-06-18 13:38] LABS: Basophils % 0.2 %; Eosinophils # 0.4 K/mcL (0.0-0.6); Eosinophils % 1.9 %; Hemoglobin 7.4 g/dL (12.9-16.9); Immature Granulocytes % 0.9 % (0-4); Lymphocytes # 1.3 K/mcL (0.6-4.6); Lymphocytes % 7.2 %; Mean Corpuscular HGB Conc 26.7 g/dL (31.6-35.5); Mean Corpuscular Hemoglobin 18.6 pg (28.0-33.3); Mean Corpuscular Volume 69.6 fL (83.0-100.0); Monocytes # 0.8 K/mcL (0.0-1.3); Monocytes % 4.4 %; Neutrophils # 15.9 K/mcL (1.6-8.9); Platelet Count 592 K/mcL (140-400); Red Blood Count 3.98 M/mcL (4.19-5.50); Red Cell Distribution Width 18.9 % (11.5-14.5); Segmented Neutrophils % 85.4 %; White Blood Count 18.6 K/mcL (4.3-11.1)
[2021-06-18 13:54] LABS: Anisocytosis 1+ (Not Present); Hypochromasia Present (Not Present); Platelet Estimate Increased (Normal)
[2021-06-18 13:55] LABS: Microcytosis Present (Not Present); Poikilocytosis 1+ (Not Present); Polychromasia 1+ (Not Present)
[2021-06-18 14:03] LABS: BUN/Creatinine Ratio 13 (6-26); Blood Urea Nitrogen 14 mg/dL (8-23); Calcium 9.1 mg/dL (8.6-10.3); Carbon Dioxide 19 mEq/L (23-29); Chloride 105 mEq/L (98-107); Glucose 209 mg/dL (70-105); Osmolality,Calculated 289 (280-300); Potassium 4.1 mEq/L (3.5-5.1); Sodium 136 mEq/L (136-145); Troponin I < 0.03 ng/mL (< 0.04); eGFR For African Americans > 60 (> 60); eGFR For Non-African Americans > 60 (> 60)
[2021-06-18 14:14] LABS: Influenza A PCR Negative (Negative); Influenza B PCR Negative (Negative); Resp. Syncytial Virus PCR Negative (Negative)
[2021-06-18 14:21] LABS: SARS-CoV-2 by PCR (In House) Negative (Negative)
[2021-06-18] MEDS ORDERED: Cefepime HCl 1,000 MG in Water for inj. (sterile) 10 ML IVP STA (14:56)
[2021-06-18] MEDS ORDERED: Vancomycin 2,000 MG/520 ML IV.SOLN IVPB ONE (14:56)
[2021-06-18] MEDS ORDERED: 0.9 % Sodium Chloride 500 ML IVC ONE (15:06)
[2021-06-18] MEDS ORDERED: cefTRIAXone 1,000 MG in Water for inj. (sterile) 10 ML IVP ONE (15:15)
[2021-06-18] MEDS ORDERED: Azithromycin 500 MG in 0.9 % Sodium Chloride 250 ML IVPB ONE (15:16)
[2021-06-18] MEDS ORDERED: Naloxone 0.4 MG/ML INJ IVP PRN (15:26)
[2021-06-18] MEDS ORDERED: *HR* Dextrose 50 % in Water (Vial) 50 ML VIAL IVP PRN (15:29)
[2021-06-18] MEDS ORDERED: Dextrose Gel 15 GM/37.5 ML TUBE PO PRN ×2 (15:29)
[2021-06-18] MEDS ORDERED: D5% in Water 1,000 ML IVC PRN (15:29)
[2021-06-18] MEDS: Ipratropium/Albuterol Neb 3 ML IH SCH ×2 (16:18→23:40)
[2021-06-18] MEDS ORDERED: 0.9 % Sodium Chloride 1,000 ML ONE (16:25)
[2021-06-18] MEDS: Ondansetron ODT 4 MG TAB.RAPDIS SL PRN (17:04)
[2021-06-18 18:40] LABS: Bacteria,Urine Few per hpf (None-Few); Bilirubin,Urine Negative (Negative); Blood,Urine Negative (Negative); Clarity,Urine Clear (Clear); Color,Urine Light-Yellow (Yellow); Glucose,Urine (UA) >=1000 mg/dL (Normal); Hyaline Casts,Urine Few per lpf (None Seen); Ketones,Urine Negative (Negative); Leukocyte Esterase,Urine Negative (Negative); Mucus,Urine Few per lpf (None-Few); Nitrite,Urine Negative (Negative); PH,Urine 5.5 pH Units (5.0-8.0); Protein,Urine Negative (Neg-Trace); RBC,Urine 0-3 per hpf (0-3); Specific Gravity,Urine 1.027 (1.010-1.025); Squamous Epithelial Cell,Urine Few per hpf (None-Few); Urobilinogen,Urine Normal (Normal); WBC,Urine 0-3 per hpf (0-3)
[2021-06-18] MEDS: Insulin LISPRO 300 UNITS/3 ML VIAL SUBQ SCH ×2 (21:49→23:20)
[2021-06-18 21:52] LABS: Hematocrit 28.7 % (37.5-50.1); Hemoglobin 7.8 g/dL (12.9-16.9)
[2021-06-18] MEDS: cefTRIAXone 1,000 MG in 0.9 % Sodium Chloride Mini Bag 100 ML IVPB SCH (22:37)
[2021-06-18] MEDS: MethylPREDNISolone 40 MG/ML VIAL IVP SCH (22:41)
[2021-06-18] MEDS: Pantoprazole 40 MG VIAL IVP SCH (22:43)
[2021-06-18] MEDS: Azithromycin 500 MG in 0.9 % Sodium Chloride 250 ML IVPB SCH (23:11)
[2021-06-18] MEDS: Insulin DETEMIR 100 UNIT/ML X5UNITS SUBQ SCH (23:15)
[2021-06-19] MEDS: MethylPREDNISolone 40 MG/ML VIAL IVP SCH ×4 (00:14→23:01)
[2021-06-19] MEDS: rOPINIRole 0.25 MG TABLET PO ONE ×2 (02:38→23:01)
[2021-06-19] MEDS: Ipratropium/Albuterol Neb 3 ML IH SCH ×4 (03:49→22:04)
[2021-06-19 08:32] LABS: BUN/Creatinine Ratio 22 (6-26); Blood Urea Nitrogen 19 mg/dL (8-23); Calcium 8.8 mg/dL (8.6-10.3); Carbon Dioxide 23 mEq/L (23-29); Chloride 105 mEq/L (98-107); Glucose 274 mg/dL (70-105); Osmolality,Calculated 296 (280-300); Potassium 4.3 mEq/L (3.5-5.1); Sodium 137 mEq/L (136-145); eGFR For African Americans > 60 (> 60); eGFR For Non-African Americans > 60 (> 60)
[2021-06-19 08:46] LABS: Thyroid Stimulating Hormone 0.404 mcIU/mL (0.340-5.600)
[2021-06-19 09:49] LABS: Anisocytosis 3+ (Not Present)
[2021-06-19 09:50] LABS: Poikilocytosis 2+ (Not Present); Polychromasia 2+ (Not Present)
[2021-06-19 09:51] LABS: Platelet Estimate Increased (Normal)
[2021-06-19] MEDS: Insulin LISPRO 300 UNITS/3 ML VIAL SUBQ SCH ×4 (09:56→22:21)
[2021-06-19 10:45] LABS: Folate 9.3 ng/mL (3.0-16.0)
[2021-06-19] MEDS: Pantoprazole 40 MG VIAL IVP SCH ×2 (11:06→22:07)
[2021-06-19 11:51] LABS: Basophils % 0.2 %; Hemoglobin 7.7 g/dL (12.9-16.9); Mean Platelet Volume 9.1 fL (9.4-12.4)
[2021-06-19 11:53] LABS: Hematocrit 28.5 % (37.5-50.1); Immature Granulocytes % 1.6 % (0-4); Lymphocytes # 0.7 K/mcL (0.6-4.6); Lymphocytes % 5.1 %; Mean Corpuscular Hemoglobin 19.7 pg (28.0-33.3); Mean Corpuscular Volume 73.1 fL (83.0-100.0); Monocytes # 0.4 K/mcL (0.0-1.3); Monocytes % 2.7 %; Neutrophils # 12.8 K/mcL (1.6-8.9); Nucleated Red Blood Cells 0.2 /100 WBC (0); Platelet Count 508 K/mcL (140-400); Red Cell Distribution Width 20.2 % (11.5-14.5); Segmented Neutrophils % 90.4 %; White Blood Count 14.2 K/mcL (4.3-11.1)
[2021-06-19] MEDS ORDERED: Iron Sucrose Complex 400 MG in 0.9 % Sodium Chloride 250 ML IVPB ONE (12:16)
[2021-06-19] MEDS: cefTRIAXone 1,000 MG in 0.9 % Sodium Chloride Mini Bag 100 ML IVPB SCH (15:36)
[2021-06-19 17:04] LABS: Hematocrit 30.3 % (37.5-50.1); Hemoglobin 8.1 g/dL (12.9-16.9)
[2021-06-19] MEDS: Azithromycin 500 MG in 0.9 % Sodium Chloride 250 ML IVPB SCH (17:24)
[2021-06-19] MEDS: Insulin DETEMIR 100 UNIT/ML X5UNITS SUBQ SCH (22:05)
[2021-06-19] MEDS ORDERED: *HR* LORazepam 2 MG/ML VIAL IVP ONE (23:30)
[2021-06-20] MEDS: rOPINIRole 0.25 MG TABLET PO SCH ×2 (00:44→19:45)
[2021-06-20] MEDS: Ipratropium/Albuterol Neb 3 ML IH SCH ×4 (03:50→21:42)
[2021-06-20] MEDS: Insulin LISPRO 300 UNITS/3 ML VIAL SUBQ SCH ×4 (09:18→19:47)
[2021-06-20] MEDS: MethylPREDNISolone 40 MG/ML VIAL IVP SCH ×3 (09:18→23:41)
[2021-06-20] MEDS: Pantoprazole 40 MG VIAL IVP SCH ×2 (09:19→19:45)
[2021-06-20 11:58] LABS: Basophils % 0.2 %; Eosinophils % 0.1 %; Hemoglobin 8.3 g/dL (12.9-16.9); Nucleated Red Blood Cells 0.6 /100 WBC (0)
[2021-06-20 12:00] LABS: Hematocrit 31.4 % (37.5-50.1); Immature Granulocytes % 2.6 % (0-4); Lymphocytes # 1.1 K/mcL (0.6-4.6); Lymphocytes % 6.2 %; Mean Corpuscular HGB Conc 26.4 g/dL (31.6-35.5); Mean Corpuscular Hemoglobin 18.9 pg (28.0-33.3); Mean Corpuscular Volume 71.5 fL (83.0-100.0); Mean Platelet Volume 8.7 fL (9.4-12.4); Monocytes # 1.2 K/mcL (0.0-1.3); Monocytes % 6.5 %; Platelet Count 574 K/mcL (140-400); Red Blood Count 4.39 M/mcL (4.19-5.50); Segmented Neutrophils % 84.4 %; White Blood Count 17.8 K/mcL (4.3-11.1)
[2021-06-20 12:29] LABS: BUN/Creatinine Ratio 22 (6-26); Blood Urea Nitrogen 22 mg/dL (8-23); Calcium 9.4 mg/dL (8.6-10.3); Carbon Dioxide 23 mEq/L (23-29); Chloride 102 mEq/L (98-107); Glucose 217 mg/dL (70-105); Osmolality,Calculated 296 (280-300); Potassium 4.1 mEq/L (3.5-5.1); Sodium 138 mEq/L (136-145); eGFR For African Americans > 60 (> 60); eGFR For Non-African Americans > 60 (> 60)
[2021-06-20 12:31] LABS: Anisocytosis 2+ (Not Present); Hypochromasia Present (Not Present); Platelet Estimate Increased (Normal); Polychromasia 1+ (Not Present)
[2021-06-20 12:32] LABS: Poikilocytosis 1+ (Not Present)
[2021-06-20 12:37] LABS: Troponin I 0.03 ng/mL (< 0.04)
[2021-06-20] MEDS ORDERED: *HR* LORazepam 2 MG/ML VIAL IVP ONE (14:47)
[2021-06-20] MEDS: cefTRIAXone 1,000 MG in 0.9 % Sodium Chloride Mini Bag 100 ML IVPB SCH (15:07)
[2021-06-20] MEDS: Azithromycin 500 MG in 0.9 % Sodium Chloride 250 ML IVPB SCH (17:51)
[2021-06-20] MEDS: Ondansetron ODT 4 MG TAB.RAPDIS SL PRN (19:45)
[2021-06-20] MEDS: Insulin DETEMIR 100 UNIT/ML X5UNITS SUBQ SCH (20:16)
[2021-06-21] MEDS: Ipratropium/Albuterol Neb 3 ML IH SCH ×4 (04:15→20:19)
[2021-06-21 04:52] LABS: Hemoglobin 8.3 g/dL (12.9-16.9); Immature Granulocytes % 4.7 % (0-4); Lymphocytes % 5.8 %; Red Cell Distribution Width 20.7 % (11.5-14.5)
[2021-06-21 04:54] LABS: Basophils # 0.1 K/mcL (0.0-0.2); Basophils % 0.6 %; Eosinophils % 0.1 %; Hematocrit 30.3 % (37.5-50.1); Lymphocytes # 1.1 K/mcL (0.6-4.6); Mean Corpuscular HGB Conc 27.4 g/dL (31.6-35.5); Mean Corpuscular Hemoglobin 19.7 pg (28.0-33.3); Mean Platelet Volume 8.7 fL (9.4-12.4); Monocytes # 1.3 K/mcL (0.0-1.3); Monocytes % 6.9 %; Neutrophils # 15.7 K/mcL (1.6-8.9); Nucleated Red Blood Cells 0.7 /100 WBC (0); Platelet Count 579 K/mcL (140-400); Red Blood Count 4.21 M/mcL (4.19-5.50); Segmented Neutrophils % 81.9 %; White Blood Count 19.2 K/mcL (4.3-11.1)
[2021-06-21 05:10] LABS: BUN/Creatinine Ratio 24 (6-26); Blood Urea Nitrogen 23 mg/dL (8-23); Calcium 9.3 mg/dL (8.6-10.3); Carbon Dioxide 24 mEq/L (23-29); Chloride 104 mEq/L (98-107); Glucose 284 mg/dL (70-105); Osmolality,Calculated 298 (280-300); Potassium 4.8 mEq/L (3.5-5.1); Sodium 137 mEq/L (136-145); eGFR For African Americans > 60 (> 60); eGFR For Non-African Americans > 60 (> 60)
[2021-06-21 05:27] LABS: Anisocytosis 1+ (Not Present); Hypochromasia Present (Not Present); Platelet Estimate Normal (Normal); Poikilocytosis 1+ (Not Present)
[2021-06-21] MEDS: Acetaminophen 325 MG TABLET PO PRN ×2 (08:45→16:54)
[2021-06-21] MEDS: Insulin LISPRO 300 UNITS/3 ML VIAL SUBQ SCH ×4 (08:45→20:29)
[2021-06-21] MEDS: MethylPREDNISolone 40 MG/ML VIAL IVP SCH ×3 (08:46→23:58)
[2021-06-21] MEDS: Pantoprazole 40 MG VIAL IVP SCH ×2 (08:47→20:32)
[2021-06-21] MEDS: Psyllium 1 PACKET POWD.PACK PO SCH ×3 (08:57→20:30)
[2021-06-21] MEDS: Magnesium Oxide 400 MG TABLET PO SCH (08:58)
[2021-06-21] MEDS: Aspirin 81 MG TAB.CHEW PO SCH (08:58)
[2021-06-21] MEDS: Loratadine 10 MG TABLET PO SCH (08:58)
[2021-06-21] MEDS: Furosemide 20 MG TABLET PO SCH ×2 (09:00→17:37)
[2021-06-21] MEDS: Budesonide/Formoterol 160/4.5 1 PUFF INH IH SCH ×2 (09:04→20:18)
[2021-06-21] MEDS: Fluticasone Propionate Nasal 50 MCG/SPRAY BOTTLE NS SCH (09:23)
[2021-06-21] MEDS: *HR* Rivaroxaban 10 MG TABLET PO SCH (17:37)
[2021-06-21] MEDS: cefTRIAXone 1,000 MG in 0.9 % Sodium Chloride Mini Bag 100 ML IVPB SCH (17:38)
[2021-06-21] MEDS: Azithromycin 500 MG in 0.9 % Sodium Chloride 250 ML IVPB SCH (17:39)
[2021-06-21] MEDS: clonazePAM 0.5 MG TABLET PO PRN (20:30)
[2021-06-21] MEDS: Insulin DETEMIR 100 UNIT/ML X5UNITS SUBQ SCH (20:30)
[2021-06-21] MEDS: rOPINIRole 0.25 MG TABLET PO SCH (20:31)
[2021-06-22 01:45] LABS: Immature Granulocytes % 4.4 % (0-4); Lymphocytes % 5.7 %; Mean Corpuscular Hemoglobin 19.5 pg (28.0-33.3); Mean Platelet Volume 8.6 fL (9.4-12.4); Segmented Neutrophils % 82.8 %
[2021-06-22 01:46] LABS: Basophils % 0.2 %; Hematocrit 28.6 % (37.5-50.1); Hemoglobin 7.7 g/dL (12.9-16.9); Lymphocytes # 0.9 K/mcL (0.6-4.6); Mean Corpuscular HGB Conc 26.9 g/dL (31.6-35.5); Mean Corpuscular Volume 72.4 fL (83.0-100.0); Monocytes # 1.1 K/mcL (0.0-1.3); Monocytes % 6.9 %; Nucleated Red Blood Cells 0.5 /100 WBC (0); Platelet Count 476 K/mcL (140-400); Red Blood Count 3.95 M/mcL (4.19-5.50); Red Cell Distribution Width 20.9 % (11.5-14.5); White Blood Count 15.7 K/mcL (4.3-11.1)
[2021-06-22 01:58] LABS: BUN/Creatinine Ratio 26 (6-26); Blood Urea Nitrogen 25 mg/dL (8-23); Calcium 8.8 mg/dL (8.6-10.3); Carbon Dioxide 26 mEq/L (23-29); Chloride 102 mEq/L (98-107); Glucose 280 mg/dL (70-105); Osmolality,Calculated 294 (280-300); Potassium 4.7 mEq/L (3.5-5.1); Sodium 135 mEq/L (136-145); eGFR For African Americans > 60 (> 60); eGFR For Non-African Americans > 60 (> 60)
[2021-06-22 02:48] LABS: Microcytosis Present (Not Present); Platelet Estimate Increased (Normal)
[2021-06-22 02:49] LABS: Anisocytosis 2+ (Not Present); Hypochromasia Present (Not Present)
[2021-06-22] MEDS: Ipratropium/Albuterol Neb 3 ML IH SCH ×4 (05:01→20:49)
[2021-06-22] MEDS: Furosemide 40 MG/4 ML VIAL IVP SCH ×2 (08:36→20:58)
[2021-06-22] MEDS: MethylPREDNISolone 40 MG/ML VIAL IVP SCH ×2 (08:39→16:20)
[2021-06-22] MEDS: Pantoprazole 40 MG VIAL IVP SCH ×2 (08:40→20:57)
[2021-06-22] MEDS: Psyllium 1 PACKET POWD.PACK PO SCH ×3 (08:40→20:57)
[2021-06-22] MEDS: Aspirin 81 MG TAB.CHEW PO SCH (08:43)
[2021-06-22] MEDS: Loratadine 10 MG TABLET PO SCH (08:45)
[2021-06-22] MEDS: Magnesium Oxide 400 MG TABLET PO SCH (08:45)
[2021-06-22] MEDS: Insulin LISPRO 300 UNITS/3 ML VIAL SUBQ SCH ×4 (08:48→20:58)
[2021-06-22] MEDS: Fluticasone Propionate Nasal 50 MCG/SPRAY BOTTLE NS SCH (08:49)
[2021-06-22] MEDS: rOPINIRole 0.25 MG TABLET PO SCH ×2 (10:01→20:56)
[2021-06-22] MEDS: Budesonide/Formoterol 160/4.5 1 PUFF INH IH SCH ×2 (12:12→20:49)
[2021-06-22] MEDS ORDERED: Saline Nasal Spray 44 ML BOTTLE NS PRN (13:51)
[2021-06-22] MEDS: *HR* Rivaroxaban 10 MG TABLET PO SCH (16:19)
[2021-06-22] MEDS: cefTRIAXone 1,000 MG in 0.9 % Sodium Chloride Mini Bag 100 ML IVPB SCH (16:21)
[2021-06-22] MEDS: Azithromycin 500 MG in 0.9 % Sodium Chloride 250 ML IVPB SCH (17:54)
[2021-06-22] MEDS: Insulin DETEMIR 100 UNIT/ML X5UNITS SUBQ SCH (20:59)
[2021-06-22] MEDS: clonazePAM 0.5 MG TABLET PO PRN (21:04)
[2021-06-23] MEDS: MethylPREDNISolone 40 MG/ML VIAL IVP SCH ×4 (00:55→23:35)
[2021-06-23] MEDS: Ipratropium/Albuterol Neb 3 ML IH SCH ×4 (04:13→22:20)
[2021-06-23 07:47] LABS: Nucleated Red Blood Cells 0.4 /100 WBC (0)
[2021-06-23 07:48] LABS: Basophils % 0.3 %; Hematocrit 30.3 % (37.5-50.1); Hemoglobin 8.3 g/dL (12.9-16.9); Immature Granulocytes % 3.6 % (0-4); Lymphocytes # 1.1 K/mcL (0.6-4.6); Lymphocytes % 7.4 %; Mean Corpuscular HGB Conc 27.4 g/dL (31.6-35.5); Mean Corpuscular Hemoglobin 19.9 pg (28.0-33.3); Mean Corpuscular Volume 72.7 fL (83.0-100.0); Mean Platelet Volume 8.6 fL (9.4-12.4); Monocytes % 6.8 %; Platelet Count 523 K/mcL (140-400); Red Blood Count 4.17 M/mcL (4.19-5.50); Red Cell Distribution Width 22.2 % (11.5-14.5); Segmented Neutrophils % 81.9 %; White Blood Count 14.3 K/mcL (4.3-11.1)
[2021-06-23 07:53] LABS: Neutrophils # 11.7 K/mcL (1.6-8.9)
[2021-06-23 08:04] LABS: BUN/Creatinine Ratio 34 (6-26); Blood Urea Nitrogen 33 mg/dL (8-23); Carbon Dioxide 28 mEq/L (23-29); Chloride 96 mEq/L (98-107); Glucose 302 mg/dL (70-105); Osmolality,Calculated 297 (280-300); Potassium 4.4 mEq/L (3.5-5.1); Sodium 134 mEq/L (136-145); eGFR For African Americans > 60 (> 60); eGFR For Non-African Americans > 60 (> 60)
[2021-06-23] MEDS: rOPINIRole 0.25 MG TABLET PO SCH ×2 (08:07→20:28)
[2021-06-23] MEDS: Loratadine 10 MG TABLET PO SCH (08:08)
[2021-06-23] MEDS: Furosemide 40 MG/4 ML VIAL IVP SCH ×2 (08:08→20:27)
[2021-06-23] MEDS: Pantoprazole 40 MG VIAL IVP SCH ×2 (08:08→20:28)
[2021-06-23] MEDS: Aspirin 81 MG TAB.CHEW PO SCH (08:08)
[2021-06-23] MEDS: Magnesium Oxide 400 MG TABLET PO SCH (08:08)
[2021-06-23] MEDS: Insulin LISPRO 300 UNITS/3 ML VIAL SUBQ SCH ×4 (08:09→20:29)
[2021-06-23] MEDS: Fluticasone Propionate Nasal 50 MCG/SPRAY BOTTLE NS SCH (08:10)
[2021-06-23] MEDS: Psyllium 1 PACKET POWD.PACK PO SCH ×3 (08:10→20:27)
[2021-06-23 08:46] LABS: Anisocytosis 1+ (Not Present); Hypochromasia Present (Not Present); Platelet Estimate Increased (Normal)
[2021-06-23 08:47] LABS: Microcytosis Present (Not Present); Polychromasia 1+ (Not Present)
[2021-06-23] MEDS ORDERED: Insulin DETEMIR 100 UNIT/ML X5UNITS SUBQ SCH (09:00)
[2021-06-23] MEDS: Budesonide/Formoterol 160/4.5 1 PUFF INH IH SCH ×2 (09:57→22:20)
[2021-06-23] MEDS: Azithromycin 500 MG in 0.9 % Sodium Chloride 250 ML IVPB SCH (16:52)
[2021-06-23] MEDS: cefTRIAXone 1,000 MG in 0.9 % Sodium Chloride Mini Bag 100 ML IVPB SCH (16:52)
[2021-06-23] MEDS: *HR* Rivaroxaban 10 MG TABLET PO SCH (16:53)
[2021-06-23] MEDS: Insulin DETEMIR 100 UNIT/ML X5UNITS SUBQ SCH (20:27)
[2021-06-23] MEDS: clonazePAM 0.5 MG TABLET PO PRN (22:07)
[2021-06-24] MEDS: Ipratropium/Albuterol Neb 3 ML IH SCH ×3 (04:03→16:37)
[2021-06-24 06:28] LABS: Basophils % 0.3 %; Mean Platelet Volume 8.5 fL (9.4-12.4); Red Cell Distribution Width 22.7 % (11.5-14.5)
[2021-06-24 06:29] LABS: Eosinophils % 0.1 %; Hematocrit 32.9 % (37.5-50.1); Hemoglobin 8.7 g/dL (12.9-16.9); Immature Granulocytes % 3.1 % (0-4); Lymphocytes # 1.1 K/mcL (0.6-4.6); Lymphocytes % 7.3 %; Mean Corpuscular HGB Conc 26.4 g/dL (31.6-35.5); Mean Corpuscular Hemoglobin 19.7 pg (28.0-33.3); Mean Corpuscular Volume 74.6 fL (83.0-100.0); Monocytes # 0.9 K/mcL (0.0-1.3); Monocytes % 5.9 %; Neutrophils # 12.1 K/mcL (1.6-8.9); Platelet Count 495 K/mcL (140-400); Red Blood Count 4.41 M/mcL (4.19-5.50); Segmented Neutrophils % 83.3 %; White Blood Count 14.5 K/mcL (4.3-11.1)
[2021-06-24 06:47] LABS: BUN/Creatinine Ratio 37 (6-26); Blood Urea Nitrogen 35 mg/dL (8-23); Calcium 9.4 mg/dL (8.6-10.3); Carbon Dioxide 32 mEq/L (23-29); Chloride 97 mEq/L (98-107); Glucose 302 mg/dL (70-105); Osmolality,Calculated 301 (280-300); Potassium 4.4 mEq/L (3.5-5.1); Sodium 136 mEq/L (136-145); eGFR For African Americans > 60 (> 60); eGFR For Non-African Americans > 60 (> 60)
[2021-06-24 07:08] LABS: Anisocytosis 2+ (Not Present); Hypochromasia Present (Not Present)
[2021-06-24 07:09] LABS: Platelet Estimate Increased (Normal); Polychromasia 1+ (Not Present)
[2021-06-24] MEDS ORDERED: MethylPREDNISolone 40 MG/ML VIAL IVP SCH (07:45)
[2021-06-24] MEDS: Insulin LISPRO 300 UNITS/3 ML VIAL SUBQ SCH ×3 (09:34→16:33)
[2021-06-24] MEDS: Psyllium 1 PACKET POWD.PACK PO SCH ×2 (09:35→13:57)
[2021-06-24] MEDS: Insulin DETEMIR 100 UNIT/ML X5UNITS SUBQ SCH (09:35)
[2021-06-24] MEDS: Furosemide 40 MG/4 ML VIAL IVP SCH (09:35)
[2021-06-24] MEDS: Aspirin 81 MG TAB.CHEW PO SCH (09:35)
[2021-06-24] MEDS: Pantoprazole 40 MG VIAL IVP SCH (09:35)
[2021-06-24] MEDS: rOPINIRole 0.25 MG TABLET PO SCH (09:36)
[2021-06-24] MEDS: Fluticasone Propionate Nasal 50 MCG/SPRAY BOTTLE NS SCH (09:36)
[2021-06-24] MEDS: Magnesium Oxide 400 MG TABLET PO SCH (09:36)
[2021-06-24] MEDS: Loratadine 10 MG TABLET PO SCH (09:36)
[2021-06-24] MEDS: Budesonide/Formoterol 160/4.5 1 PUFF INH IH SCH (10:20)
[2021-06-24 12:09] LABS: Adenovirus Not Detected (Not Detect); Bordetella Pertussis Not Detected (Not Detect); Chlamydophila pneumoniae Not Detected (Not Detect); Coronavirus 229E Not Detected (Not Detect); Coronavirus HKU1 Not Detected (Not Detect); Coronavirus NL63 Not Detected (Not Detect); Coronavirus OC43 Not Detected (Not Detect); Human Metapneumovirus Not Detected (Not Detect); Human Rhinovirus/Enterovirus Not Detected (Not Detect); Influenza A Subtype 2009 H1 Not Detected (Not Detect); Influenza B Not Detected (Not Detect); Mycoplasma pneumoniae Not Detected (Not Detect); Parainfluenza Virus 1 Not Detected (Not Detect); Parainfluenza Virus 2 Not Detected (Not Detect); Parainfluenza Virus 3 Not Detected (Not Detect); Parainfluenza Virus 4 Not Detected (Not Detect); Respiratory Syncytial Virus Not Detected (Not Detect); SARS-CoV-2 Not Detected (Not Detect)
[2021-06-24] MEDS ORDERED: FLU Vac QV 21-22 (6Month+)/PF 0.5 ML SYRINGE IM ONE (13:03)
[2021-06-24 15:24] VITALS: BP 145/70; PULSE 79; TEMP 98.4
[2021-06-24] MEDS: *HR* Rivaroxaban 10 MG TABLET PO SCH (16:33)
[2021-06-24 16:40] VITALS: O2SAT 96
== END 2021-06-24 18:25 | disposition other institution (70) | DRG 871 ==
LOC: EMEROOARM 12:51 → SUATTDRO 20:59 → CDU 20:59 → 3BNU 06-20 10:02
PROVIDERS: ADMIT Internal Medicine; ATTEND Family Medicine

== ENCOUNTER 2021-08-18 17:21 | Inpatient (IN) ==
[2021-08-18] MEDS ORDERED: Ipratropium/Albuterol Neb 3 ML IH ONE ×2 (17:56→20:18)
[2021-08-18 18:09] LABS: Basophils % 0.5 %; Immature Granulocytes % 1.1 % (0-4); Lymphocytes % 9.7 %; Monocytes % 5.7 %; Nucleated Red Blood Cells 0.1 /100 WBC (0); Red Blood Count 4.42 M/mcL (4.19-5.50); Red Cell Distribution Width 22.4 % (11.5-14.5)
[2021-08-18 18:10] LABS: VBG HCO3 25 mEq/L (21-27); VBG PCO2 37 mmHg (41-51); VBG PH 7.43 pH Units (7.32-7.42); VBG PO2 146 mmHg (25-50)
[2021-08-18 18:11] LABS: Basophils # 0.1 K/mcL (0.0-0.2); Eosinophils # 0.2 K/mcL (0.0-0.6); Eosinophils % 0.8 %; Hematocrit 35.5 % (37.5-50.1); Hemoglobin 10.1 g/dL (12.9-16.9); Mean Corpuscular HGB Conc 28.5 g/dL (31.6-35.5); Mean Corpuscular Hemoglobin 22.9 pg (28.0-33.3); Mean Corpuscular Volume 80.3 fL (83.0-100.0); Mean Platelet Volume 8.6 fL (9.4-12.4); Monocytes # 1.2 K/mcL (0.0-1.3); Neutrophils # 17.2 K/mcL (1.6-8.9); Platelet Count 594 K/mcL (140-400); Segmented Neutrophils % 82.2 %; White Blood Count 20.9 K/mcL (4.3-11.1)
[2021-08-18 18:19] LABS: INR 1.1; Prothrombin Time 11.9 Seconds (9.4-12.1)
[2021-08-18 18:22] LABS: Activated Partial Thrombo Time 42.9 Seconds (26.0-36.0)
[2021-08-18 18:38] LABS: Anisocytosis 2+ (Not Present); Hypochromasia Present (Not Present); Platelet Estimate Marked Increase (Normal)
[2021-08-18 18:39] LABS: Alanine Aminotransferase 15 Units/L (7-52); Albumin 3.8 g/dL (3.5-5.7); Albumin/Globulin Ratio 1.2 (1.1-2.2); Alkaline Phosphatase 81 Units/L (34-104); Aspartate Amino Transferase 12 Units/L (13-39); BUN/Creatinine Ratio 13 (6-26); Bilirubin,Total 0.2 mg/dL (0.3-1.0); Blood Urea Nitrogen 15 mg/dL (8-23); Calcium 9.2 mg/dL (8.6-10.3); Carbon Dioxide 23 mEq/L (23-29); Chloride 98 mEq/L (98-107); Globulin 3.1 g/dL (2.4-3.5); Glucose 277 mg/dL (70-105); Osmolality,Calculated 289 (280-300); Potassium 4.1 mEq/L (3.5-5.1); Sodium 134 mEq/L (136-145); Total Protein 6.9 g/dL (6.4-8.9); eGFR For African Americans > 60 (> 60); eGFR For Non-African Americans > 60 (> 60)
[2021-08-18 18:40] LABS: Troponin I < 0.03 ng/mL (< 0.04)
[2021-08-18] MEDS ORDERED: Isovue-370 500 ML BOTTLE IVP ONE ×2 (20:18→23:20)
[2021-08-18 22:12] LABS: Influenza A PCR Negative (Negative); Influenza B PCR Negative (Negative); Resp. Syncytial Virus PCR Negative (Negative)
[2021-08-18 22:13] LABS: SARS-CoV-2 by PCR (In House) Negative (Negative)
[2021-08-18] MEDS ORDERED: methylPREDNISolone 125 MG/2 ML VIAL IVP ONE (22:42)
[2021-08-18] MEDS ORDERED: Melatonin 3 MG TABLET PO PRN (23:16)
[2021-08-18] MEDS ORDERED: Ondansetron 4 MG/2 ML VIAL IVP PRN (23:16)
[2021-08-18] MEDS ORDERED: Acetaminophen 325 MG TABLET PO PRN (23:16)
[2021-08-18] MEDS ORDERED: Naloxone 0.4 MG/ML INJ IVP PRN (23:16)
[2021-08-18] MEDS ORDERED: Perflutren Lipid Microsphere 1.3 ML in 0.9 % Sodium Chloride 8.7 ML IVP PRN (23:23)
[2021-08-18] MEDS ORDERED: Ipratropium/Albuterol Neb 3 ML IH PRN (23:32)
[2021-08-18] MEDS ORDERED: Budesonide/Formoterol 160/4.5 1 PUFF INH IH SCH (23:45)
[2021-08-18] MEDS ORDERED: *HR* Dextrose 50 % in Water (Syg) 50 ML SYRINGE IVP PRN (23:53)
[2021-08-18] MEDS ORDERED: D5% in Water 1,000 ML IVC PRN (23:53)
[2021-08-18] MEDS ORDERED: Dextrose Gel 15 GM/37.5 ML TUBE PO PRN ×2 (23:53)
[2021-08-19] MEDS: Aspirin Enteric Coated 81 MG Tablet PO SCH ×3 (00:31→08:49)
[2021-08-19] MEDS ORDERED: Insulin Human Regular 10 UNIT in 0.9 % Sodium Chloride 10 ML IV ONE (03:35)
[2021-08-19 03:54] LABS: Basophils % 0.3 %; Hemoglobin 9.6 g/dL (12.9-16.9); Immature Granulocytes % 1.2 % (0-4)
[2021-08-19 03:56] LABS: Basophils # 0.1 K/mcL (0.0-0.2); Hematocrit 34.3 % (37.5-50.1); Lymphocytes # 0.7 K/mcL (0.6-4.6); Lymphocytes % 4.5 %; Mean Corpuscular Hemoglobin 22.8 pg (28.0-33.3); Mean Corpuscular Volume 81.5 fL (83.0-100.0); Monocytes % 1.6 %; Platelet Count 521 K/mcL (140-400); Red Blood Count 4.21 M/mcL (4.19-5.50); Red Cell Distribution Width 22.5 % (11.5-14.5); Segmented Neutrophils % 92.4 %; White Blood Count 15.2 K/mcL (4.3-11.1)
[2021-08-19 04:11] LABS: Estimated Average Glucose 189 mg/dl; Hemoglobin A1C 8.2 %
[2021-08-19 04:33] LABS: Monocytes # 0.2 K/mcL (0.0-1.3)
[2021-08-19] MEDS: Azithromycin 250 MG TABLET PO SCH (04:56)
[2021-08-19 05:43] LABS: Anisocytosis 3+ (Not Present); Hypochromasia Present (Not Present); Platelet Estimate Increased (Normal)
[2021-08-19 06:32] LABS: BUN/Creatinine Ratio 20 (6-26); Blood Urea Nitrogen 21 mg/dL (8-23); Calcium 9.3 mg/dL (8.6-10.3); Carbon Dioxide 24 mEq/L (23-29); Chloride 99 mEq/L (98-107); Chol/HDL Ratio 2.6 (0-4.9); Cholesterol 131 mg/dL (< 200); Glucose 287 mg/dL (70-105); HDL Cholesterol 51 mg/dL (40-59); LDL Cholesterol,Calculated 52 mg/dL (< 100); Osmolality,Calculated 293 (280-300); Phosphorous 3.6 mg/dL (2.7-4.5); Potassium 4.3 mEq/L (3.5-5.1); Sodium 135 mEq/L (136-145); Triglycerides 140 mg/dL (< 150); eGFR For African Americans > 60 (> 60); eGFR For Non-African Americans > 60 (> 60)
[2021-08-19] MEDS: Budesonide/Formoterol 160/4.5 1 PUFF INH IH SCH ×2 (07:30→20:47)
[2021-08-19] MEDS ORDERED: Cefepime HCl 2,000 MG in Water for inj. (sterile) 20 ML IVP SCH (08:00)
[2021-08-19] MEDS ORDERED: *HR* LORazepam 2 MG/ML VIAL IVP ONE (08:47)
[2021-08-19] MEDS: Loratadine 10 MG TABLET PO SCH (08:49)
[2021-08-19] MEDS: *HR* Rivaroxaban 10 MG TABLET PO SCH (08:49)
[2021-08-19] MEDS: (Roflumilast [Daliresp] 500 MCG Tablet) PO SCH (08:50)
[2021-08-19] MEDS: Psyllium 1 PACKET POWD.PACK PO SCH (08:50)
[2021-08-19] MEDS: MethylPREDNISolone 40 MG/ML VIAL IVP SCH ×3 (08:51→23:50)
[2021-08-19] MEDS: Furosemide 20 MG TABLET PO SCH ×2 (08:53→17:45)
[2021-08-19] MEDS: Insulin DETEMIR 100 UNIT/ML X5UNITS SUBQ SCH ×2 (08:54→20:26)
[2021-08-19] MEDS ORDERED: Furosemide 20 MG TABLET PO SCH (09:00)
[2021-08-19] MEDS: Fluticasone Propionate Nasal 50 MCG/SPRAY BOTTLE NS SCH (09:00)
[2021-08-19] MEDS ORDERED: *HR* Dextrose 50 % in Water (Syg) 50 ML SYRINGE IVP PRN (13:26)
[2021-08-19] MEDS ORDERED: Dextrose Gel 15 GM/37.5 ML TUBE PO PRN (13:26)
[2021-08-19] MEDS: Insulin LISPRO 300 UNITS/3 ML VIAL SUBQ SCH (17:45)
[2021-08-19] MEDS: rOPINIRole 0.25 MG TABLET PO SCH (20:21)
[2021-08-19] MEDS: clonazePAM 0.5 MG TABLET PO PRN (20:24)
[2021-08-19] MEDS ORDERED: methylPREDNISolone 125 MG/2 ML VIAL IVP ONE (22:25)
[2021-08-20 03:01] LABS: Basophils % 0.3 %; Eosinophils % 0.1 %
[2021-08-20 03:02] LABS: Hematocrit 31.6 % (37.5-50.1); Lymphocytes % 6.7 %; Mean Corpuscular HGB Conc 28.5 g/dL (31.6-35.5); Mean Corpuscular Volume 80.8 fL (83.0-100.0); Mean Platelet Volume 8.5 fL (9.4-12.4); Monocytes # 0.7 K/mcL (0.0-1.3); Monocytes % 4.7 %; Platelet Count 536 K/mcL (140-400); Red Blood Count 3.91 M/mcL (4.19-5.50); Red Cell Distribution Width 21.9 % (11.5-14.5); Segmented Neutrophils % 87.2 %; White Blood Count 14.5 K/mcL (4.3-11.1)
[2021-08-20 03:03] LABS: Neutrophils # 12.6 K/mcL (1.6-8.9)
[2021-08-20 03:16] LABS: BUN/Creatinine Ratio 24 (6-26); Blood Urea Nitrogen 22 mg/dL (8-23); Calcium 8.7 mg/dL (8.6-10.3); Carbon Dioxide 27 mEq/L (23-29); Chloride 100 mEq/L (98-107); Glucose 282 mg/dL (70-105); Osmolality,Calculated 294 (280-300); Potassium 4.5 mEq/L (3.5-5.1); Sodium 135 mEq/L (136-145); eGFR For African Americans > 60 (> 60); eGFR For Non-African Americans > 60 (> 60)
[2021-08-20 03:29] LABS: Anisocytosis 1+ (Not Present); Hypochromasia Present (Not Present); Poikilocytosis 1+ (Not Present)
[2021-08-20] MEDS: Azithromycin 250 MG TABLET PO SCH (03:59)
[2021-08-20] MEDS: Budesonide/Formoterol 160/4.5 1 PUFF INH IH SCH ×2 (07:34→19:38)
[2021-08-20 09:02] LABS: Estimated Average Glucose 189 mg/dl; Hemoglobin A1C 8.2 %
[2021-08-20] MEDS: Psyllium 1 PACKET POWD.PACK PO SCH (09:31)
[2021-08-20] MEDS: Furosemide 20 MG TABLET PO SCH ×2 (09:31→18:09)
[2021-08-20] MEDS: Loratadine 10 MG TABLET PO SCH (09:32)
[2021-08-20] MEDS: Aspirin Enteric Coated 81 MG Tablet PO SCH (09:32)
[2021-08-20] MEDS: MethylPREDNISolone 40 MG/ML VIAL IVP SCH ×3 (09:32→20:06)
[2021-08-20] MEDS: *HR* Rivaroxaban 10 MG TABLET PO SCH (09:32)
[2021-08-20] MEDS: Insulin LISPRO 300 UNITS/3 ML VIAL SUBQ SCH ×3 (09:32→18:10)
[2021-08-20] MEDS: Fluticasone Propionate Nasal 50 MCG/SPRAY BOTTLE NS SCH (09:33)
[2021-08-20] MEDS: Insulin DETEMIR 100 UNIT/ML X5UNITS SUBQ SCH ×2 (09:34→20:06)
[2021-08-20] MEDS: (Roflumilast [Daliresp] 500 MCG Tablet) PO SCH (09:44)
[2021-08-20] MEDS: Ipratropium/Albuterol Neb 3 ML IH SCH ×4 (15:35→23:16)
[2021-08-20] MEDS: rOPINIRole 0.25 MG TABLET PO SCH (20:06)
[2021-08-20] MEDS: clonazePAM 0.5 MG TABLET PO PRN (21:17)
[2021-08-21] MEDS: Ipratropium/Albuterol Neb 3 ML IH SCH ×5 (03:46→20:00)
[2021-08-21] MEDS: Azithromycin 250 MG TABLET PO SCH (04:21)
[2021-08-21] MEDS: MethylPREDNISolone 40 MG/ML VIAL IVP SCH ×4 (04:21→21:48)
[2021-08-21] MEDS: Insulin LISPRO 300 UNITS/3 ML VIAL SUBQ SCH ×3 (08:23→18:15)
[2021-08-21] MEDS: Budesonide/Formoterol 160/4.5 1 PUFF INH IH SCH ×2 (08:34→20:00)
[2021-08-21] MEDS: *HR* Rivaroxaban 10 MG TABLET PO SCH (08:40)
[2021-08-21] MEDS: Loratadine 10 MG TABLET PO SCH (08:41)
[2021-08-21] MEDS: Furosemide 20 MG TABLET PO SCH ×2 (08:41→18:17)
[2021-08-21] MEDS: Aspirin Enteric Coated 81 MG Tablet PO SCH (08:42)
[2021-08-21] MEDS: Psyllium 1 PACKET POWD.PACK PO SCH (08:46)
[2021-08-21] MEDS: Insulin DETEMIR 100 UNIT/ML X5UNITS SUBQ SCH ×2 (12:32→21:48)
[2021-08-21] MEDS: Fluticasone Propionate Nasal 50 MCG/SPRAY BOTTLE NS SCH (12:34)
[2021-08-21] MEDS: (Roflumilast [Daliresp] 500 MCG Tablet) PO SCH (15:14)
[2021-08-21] MEDS: rOPINIRole 0.25 MG TABLET PO SCH (21:38)
[2021-08-21] MEDS: clonazePAM 0.5 MG TABLET PO PRN (21:39)
[2021-08-22] MEDS: Ipratropium/Albuterol Neb 3 ML IH SCH ×7 (00:17→23:36)
[2021-08-22] MEDS: Azithromycin 250 MG TABLET PO SCH (04:14)
[2021-08-22] MEDS: MethylPREDNISolone 40 MG/ML VIAL IVP SCH (04:14)
[2021-08-22] MEDS: Budesonide/Formoterol 160/4.5 1 PUFF INH IH SCH ×2 (07:53→20:19)
[2021-08-22] MEDS: Aspirin Enteric Coated 81 MG Tablet PO SCH (08:40)
[2021-08-22] MEDS: Furosemide 20 MG TABLET PO SCH ×2 (08:40→16:37)
[2021-08-22] MEDS: *HR* Rivaroxaban 10 MG TABLET PO SCH (08:40)
[2021-08-22] MEDS: Psyllium 1 PACKET POWD.PACK PO SCH (08:40)
[2021-08-22] MEDS: Loratadine 10 MG TABLET PO SCH (08:41)
[2021-08-22] MEDS: Insulin LISPRO 300 UNITS/3 ML VIAL SUBQ SCH ×4 (08:41→16:37)
[2021-08-22] MEDS: Fluticasone Propionate Nasal 50 MCG/SPRAY BOTTLE NS SCH (08:41)
[2021-08-22] MEDS: (Roflumilast [Daliresp] 500 MCG Tablet) PO SCH (08:42)
[2021-08-22] MEDS: Insulin DETEMIR 100 UNIT/ML X5UNITS SUBQ SCH ×2 (08:48→20:06)
[2021-08-22] MEDS: predniSONE 20 MG TABLET PO SCH (08:54)
[2021-08-22] MEDS: rOPINIRole 0.25 MG TABLET PO SCH (20:06)
[2021-08-22] MEDS: clonazePAM 0.5 MG TABLET PO PRN (20:07)
[2021-08-23] MEDS: Ipratropium/Albuterol Neb 3 ML IH SCH ×3 (03:51→11:49)
[2021-08-23] MEDS: Azithromycin 250 MG TABLET PO SCH (04:37)
[2021-08-23] MEDS: *HR* Rivaroxaban 10 MG TABLET PO SCH (08:00)
[2021-08-23] MEDS: Furosemide 20 MG TABLET PO SCH (08:01)
[2021-08-23] MEDS: predniSONE 20 MG TABLET PO SCH (08:01)
[2021-08-23] MEDS: Aspirin Enteric Coated 81 MG Tablet PO SCH (08:01)
[2021-08-23] MEDS: Fluticasone Propionate Nasal 50 MCG/SPRAY BOTTLE NS SCH (08:02)
[2021-08-23] MEDS: Insulin DETEMIR 100 UNIT/ML X5UNITS SUBQ SCH (08:02)
[2021-08-23] MEDS: Psyllium 1 PACKET POWD.PACK PO SCH (08:02)
[2021-08-23] MEDS: Loratadine 10 MG TABLET PO SCH (08:02)
[2021-08-23] MEDS: (Roflumilast [Daliresp] 500 MCG Tablet) PO SCH (08:03)
[2021-08-23] MEDS: Insulin LISPRO 300 UNITS/3 ML VIAL SUBQ SCH ×2 (08:03→11:39)
[2021-08-23] MEDS: clonazePAM 0.5 MG TABLET PO PRN (08:06)
[2021-08-23] MEDS: Budesonide/Formoterol 160/4.5 1 PUFF INH IH SCH (08:13)
[2021-08-23 11:31] VITALS: BP 174/88; PULSE 93; TEMP 97.7
[2021-08-23 14:18] VITALS: O2SAT 96
== END 2021-08-23 16:05 | disposition home health service (06) | DRG 65 ==
LOC: 3NENU 17:21 → EMEROOARM 17:21 → SUATTDRO 23:31 → 3NENU 08-19 00:45
PROVIDERS: ADMIT Internal Medicine; ATTEND Hospitalist

== ENCOUNTER 2021-11-02 20:12 | Inpatient (IN) ==
[2021-11-02] MEDS ORDERED: methylPREDNISolone 125 MG/2 ML VIAL IVP ONE (20:42)
[2021-11-02] MEDS ORDERED: Ipratropium/Albuterol Neb 3 ML IH ONE (20:42)
[2021-11-02] MEDS ORDERED: Albuterol 2.5 MG/3 ML NEBULIZER IH ONE ×2 (20:42→22:02)
[2021-11-02 21:09] LABS: Bilirubin,Urine Negative (Negative); Blood,Urine Trace (Negative); Clarity,Urine Clear (Clear); Color,Urine Light-Yellow (Yellow); Glucose,Urine (UA) >=1000 mg/dL (Normal); Ketones,Urine Trace mg/dL (Negative); Leukocyte Esterase,Urine Negative (Negative); Nitrite,Urine Negative (Negative); PH,Urine 5.5 pH Units (5.0-8.0); Protein,Urine Trace mg/dL (Neg-Trace); RBC,Urine 0-3 per hpf (0-3); Specific Gravity,Urine > 1.030 (1.010-1.025); Squamous Epithelial Cell,Urine Few per hpf (None-Few); Urobilinogen,Urine Normal (Normal); WBC,Urine 0-3 per hpf (0-3)
[2021-11-02 21:10] LABS: Basophils % 0.5 %; Eosinophils % 0.3 %; Hemoglobin 9.9 g/dL (12.9-16.9); Lymphocytes % 8.8 %; Mean Platelet Volume 8.6 fL (9.4-12.4); Red Cell Distribution Width 17.2 % (11.5-14.5)
[2021-11-02 21:11] LABS: Basophils # 0.1 K/mcL (0.0-0.2); Eosinophils # 0.1 K/mcL (0.0-0.6); Hematocrit 35.2 % (37.5-50.1); Immature Granulocytes % 2.3 % (0-4); Lymphocytes # 1.9 K/mcL (0.6-4.6); Mean Corpuscular HGB Conc 28.1 g/dL (31.6-35.5); Mean Corpuscular Hemoglobin 22.1 pg (28.0-33.3); Mean Corpuscular Volume 78.6 fL (83.0-100.0); Monocytes # 1.2 K/mcL (0.0-1.3); Monocytes % 5.5 %; Neutrophils # 17.8 K/mcL (1.6-8.9); Nucleated Red Blood Cells 0.2 /100 WBC (0); Platelet Count 603 K/mcL (140-400); Red Blood Count 4.48 M/mcL (4.19-5.50); Segmented Neutrophils % 82.6 %; White Blood Count 21.6 K/mcL (4.3-11.1)
[2021-11-02 21:14] LABS: VBG HCO3 23 mEq/L (21-27); VBG PCO2 34 mmHg (41-51); VBG PH 7.43 pH Units (7.32-7.42); VBG PO2 119 mmHg (25-50)
[2021-11-02 21:32] LABS: Alanine Aminotransferase 20 Units/L (7-52); Albumin 4.1 g/dL (3.5-5.7); Albumin/Globulin Ratio 1.4 (1.1-2.2); Alkaline Phosphatase 69 Units/L (34-104); Aspartate Amino Transferase 13 Units/L (13-39); BUN/Creatinine Ratio 16 (6-26); Bilirubin,Indirect 0.2 mg/dL (0.0-1.0); Bilirubin,Total 0.2 mg/dL (0.3-1.0); Blood Urea Nitrogen 17 mg/dL (8-23); Calcium 9.2 mg/dL (8.6-10.3); Carbon Dioxide 22 mEq/L (23-29); Chloride 101 mEq/L (98-107); Globulin 2.9 g/dL (2.4-3.5); Glucose 229 mg/dL (70-105); Osmolality,Calculated 293 (280-300); Potassium 4.4 mEq/L (3.5-5.1); Sodium 137 mEq/L (136-145); Troponin I < 0.03 ng/mL (< 0.04); eGFR For African Americans > 60 (> 60); eGFR For Non-African Americans > 60 (> 60)
[2021-11-02 21:42] LABS: Anisocytosis 1+ (Not Present); Hypochromasia Present (Not Present); Macrocytosis Present (Not Present)
[2021-11-02 21:43] LABS: Platelet Estimate Increased (Normal)
[2021-11-02] MEDS ORDERED: cefTRIAXone 1,000 MG in Water for inj. (sterile) 10 ML IVP ONE (21:53)
[2021-11-02] MEDS ORDERED: Azithromycin 500 MG in 0.9 % Sodium Chloride 250 ML IVPB ONE (21:53)
[2021-11-02 22:06] LABS: Influenza A PCR Negative (Negative); Influenza B PCR Negative (Negative); Resp. Syncytial Virus PCR Negative (Negative)
[2021-11-02 22:09] LABS: SARS-CoV-2 by PCR (In House) Negative (Negative)
[2021-11-02] MEDS ORDERED: Ondansetron 4 MG/2 ML VIAL IVP PRN (23:41)
[2021-11-02] MEDS ORDERED: Acetaminophen 325 MG TABLET PO PRN (23:41)
[2021-11-02] MEDS ORDERED: Naloxone 0.4 MG/ML INJ IVP PRN (23:41)
[2021-11-03] MEDS ORDERED: cefTRIAXone 1,000 MG in 0.9 % Sodium Chloride Mini Bag 100 ML IVP ONE (01:00)
[2021-11-03] MEDS ORDERED: D5% in Water 1,000 ML IVC PRN (01:37)
[2021-11-03] MEDS ORDERED: *HR* Dextrose 50 % in Water (Syg) 50 ML SYRINGE IVP PRN (01:37)
[2021-11-03] MEDS ORDERED: Dextrose Gel 15 GM/37.5 ML TUBE PO PRN ×2 (01:37)
[2021-11-03] MEDS: clonazePAM 0.5 MG TABLET PO PRN ×2 (01:51→20:36)
[2021-11-03] MEDS: Melatonin 3 MG TABLET PO PRN ×2 (03:38→23:33)
[2021-11-03] MEDS: Ipratropium/Albuterol Neb 3 ML IH SCH ×4 (03:48→23:52)
[2021-11-03 05:41] LABS: Basophils % 0.4 %; Nucleated Red Blood Cells 0.2 /100 WBC (0)
[2021-11-03 05:43] LABS: Basophils # 0.1 K/mcL (0.0-0.2); Eosinophils % 0.1 %; Hematocrit 31.1 % (37.5-50.1); Hemoglobin 8.5 g/dL (12.9-16.9); Immature Granulocytes % 2.6 % (0-4); Lymphocytes % 5.3 %; Mean Corpuscular HGB Conc 27.3 g/dL (31.6-35.5); Mean Corpuscular Hemoglobin 21.6 pg (28.0-33.3); Mean Corpuscular Volume 78.9 fL (83.0-100.0); Mean Platelet Volume 8.8 fL (9.4-12.4); Monocytes # 0.7 K/mcL (0.0-1.3); Monocytes % 3.9 %; Neutrophils # 15.6 K/mcL (1.6-8.9); Platelet Count 488 K/mcL (140-400); Red Blood Count 3.94 M/mcL (4.19-5.50); Segmented Neutrophils % 87.7 %; White Blood Count 17.8 K/mcL (4.3-11.1)
[2021-11-03 05:47] LABS: Lymphocytes # 0.9 K/mcL (0.6-4.6)
[2021-11-03 05:48] LABS: Anisocytosis 1+ (Not Present); Hypochromasia Present (Not Present)
[2021-11-03 05:49] LABS: Macrocytosis Present (Not Present)
[2021-11-03 05:58] LABS: BUN/Creatinine Ratio 17 (6-26); Blood Urea Nitrogen 20 mg/dL (8-23); Calcium 8.9 mg/dL (8.6-10.3); Carbon Dioxide 23 mEq/L (23-29); Chloride 100 mEq/L (98-107); Glucose 368 mg/dL (70-105); Magnesium 1.9 mg/dL (1.6-2.6); Osmolality,Calculated 296 (280-300); Phosphorous 3.2 mg/dL (2.7-4.5); Potassium 4.9 mEq/L (3.5-5.1); Sodium 134 mEq/L (136-145); Troponin I 0.03 ng/mL (< 0.04); eGFR For African Americans > 60 (> 60); eGFR For Non-African Americans 60 (> 60)
[2021-11-03] MEDS: *HR* Rivaroxaban 10 MG TABLET PO SCH (08:19)
[2021-11-03] MEDS: Insulin LISPRO 300 UNITS/3 ML VIAL SUBQ SCH ×3 (08:19→16:58)
[2021-11-03] MEDS: predniSONE 20 MG TABLET PO SCH (08:19)
[2021-11-03] MEDS: Aspirin 81 MG TAB.CHEW PO SCH (08:19)
[2021-11-03] MEDS ORDERED: Ondansetron ODT 4 MG TAB.RAPDIS PO PRN (17:28)
[2021-11-03] MEDS: rOPINIRole 0.25 MG TABLET PO SCH (20:34)
[2021-11-03] MEDS: Insulin DETEMIR 100 UNIT/ML X5UNITS SUBQ SCH (20:36)
[2021-11-03] MEDS: Furosemide 20 MG TABLET PO SCH (20:36)
[2021-11-03] MEDS ORDERED: NON-FORMULARY MEDICATION 1 EACH EACH (Buspirone Hcl [Buspar] 15 MG Tablet) PO SCH (21:00)
[2021-11-03] MEDS ORDERED: Insulin LISPRO 300 UNITS/3 ML VIAL SUBQ SCH (21:00)
[2021-11-03] MEDS: Azithromycin 500 MG in 0.9 % Sodium Chloride 250 ML IVPB SCH (23:34)
[2021-11-04] MEDS: Ipratropium/Albuterol Neb 3 ML IH SCH ×4 (04:08→23:51)
[2021-11-04] MEDS: Budesonide/Formoterol 160/4.5 1 PUFF INH IH SCH ×2 (07:31→14:33)
[2021-11-04] MEDS ORDERED: cefTRIAXone 1,000 MG in 0.9 % Sodium Chloride Mini Bag 100 ML IVP SCH (09:00)
[2021-11-04] MEDS ORDERED: FERROUS SULFATE 140 MG PO SCH (09:00)
[2021-11-04] MEDS ORDERED: DALIRESP 500 MCG PO SCH (09:00)
[2021-11-04] MEDS: Furosemide 20 MG TABLET PO SCH ×2 (09:39→20:05)
[2021-11-04] MEDS: Psyllium 1 PACKET POWD.PACK PO SCH (09:39)
[2021-11-04] MEDS: *HR* Rivaroxaban 10 MG TABLET PO SCH (09:39)
[2021-11-04] MEDS: predniSONE 20 MG TABLET PO SCH (09:40)
[2021-11-04] MEDS: Magnesium Oxide 400 MG TABLET PO SCH (09:40)
[2021-11-04] MEDS: Aspirin 81 MG TAB.CHEW PO SCH (09:40)
[2021-11-04] MEDS: Fluticasone Propionate Nasal 50 MCG/SPRAY BOTTLE NS SCH (09:41)
[2021-11-04] MEDS: Insulin LISPRO 300 UNITS/3 ML VIAL SUBQ SCH ×4 (09:42→20:07)
[2021-11-04] MEDS: Insulin DETEMIR 100 UNIT/ML X5UNITS SUBQ SCH ×2 (09:46→20:07)
[2021-11-04] MEDS: Tiotropium 10 INH DOSE IH SCH (10:53)
[2021-11-04] MEDS ORDERED: HydrOXYzine SYP 10 MG/5 ML UDC PO ONE (14:30)
[2021-11-04] MEDS ORDERED: Furosemide 40 MG/4 ML VIAL IVP ONE (14:30)
[2021-11-04] MEDS: clonazePAM 0.5 MG TABLET PO PRN (20:05)
[2021-11-04] MEDS: Melatonin 3 MG TABLET PO PRN (20:06)
[2021-11-04] MEDS: rOPINIRole 0.25 MG TABLET PO SCH (20:06)
[2021-11-04] MEDS: Azithromycin 500 MG in 0.9 % Sodium Chloride 250 ML IVPB SCH (22:58)
[2021-11-05] MEDS: Ipratropium/Albuterol Neb 3 ML IH SCH ×4 (03:50→20:00)
[2021-11-05] MEDS: Budesonide/Formoterol 160/4.5 1 PUFF INH IH SCH ×4 (07:30→19:59)
[2021-11-05] MEDS: Tiotropium 10 INH DOSE IH SCH (07:33)
[2021-11-05] MEDS: Insulin LISPRO 300 UNITS/3 ML VIAL SUBQ SCH ×4 (09:14→21:49)
[2021-11-05] MEDS: Aspirin 81 MG TAB.CHEW PO SCH (09:33)
[2021-11-05] MEDS: *HR* Rivaroxaban 10 MG TABLET PO SCH (09:33)
[2021-11-05] MEDS: predniSONE 20 MG TABLET PO SCH (09:33)
[2021-11-05] MEDS: Magnesium Oxide 400 MG TABLET PO SCH (09:34)
[2021-11-05] MEDS: Furosemide 20 MG TABLET PO SCH ×2 (09:34→21:52)
[2021-11-05] MEDS: Fluticasone Propionate Nasal 50 MCG/SPRAY BOTTLE NS SCH (09:38)
[2021-11-05] MEDS: Psyllium 1 PACKET POWD.PACK PO SCH (09:49)
[2021-11-05] MEDS: Insulin DETEMIR 100 UNIT/ML X5UNITS SUBQ SCH ×2 (11:01→21:50)
[2021-11-05 12:45] LABS: Hemoglobin 8.6 g/dL (12.9-16.9); Red Cell Distribution Width 17.2 % (11.5-14.5)
[2021-11-05 12:47] LABS: Basophils # 0.1 K/mcL (0.0-0.2); Basophils % 0.4 %; Eosinophils # 0.2 K/mcL (0.0-0.6); Eosinophils % 0.8 %; Hematocrit 32.2 % (37.5-50.1); Immature Granulocytes % 1.4 % (0-4); Lymphocytes # 1.5 K/mcL (0.6-4.6); Mean Corpuscular HGB Conc 26.7 g/dL (31.6-35.5); Mean Corpuscular Hemoglobin 21.4 pg (28.0-33.3); Mean Corpuscular Volume 80.1 fL (83.0-100.0); Mean Platelet Volume 8.7 fL (9.4-12.4); Monocytes # 1.3 K/mcL (0.0-1.3); Monocytes % 6.8 %; Nucleated Red Blood Cells 0.1 /100 WBC (0); Platelet Count 484 K/mcL (140-400); Red Blood Count 4.02 M/mcL (4.19-5.50); Segmented Neutrophils % 82.6 %; White Blood Count 18.7 K/mcL (4.3-11.1)
[2021-11-05 12:50] LABS: Neutrophils # 15.5 K/mcL (1.6-8.9)
[2021-11-05 13:23] LABS: Alanine Aminotransferase 22 Units/L (7-52); Albumin 3.8 g/dL (3.5-5.7); Albumin/Globulin Ratio 1.4 (1.1-2.2); Alkaline Phosphatase 65 Units/L (34-104); Aspartate Amino Transferase 15 Units/L (13-39); BUN/Creatinine Ratio 24 (6-26); Bilirubin,Total 0.2 mg/dL (0.3-1.0); Blood Urea Nitrogen 19 mg/dL (8-23); Calcium 8.9 mg/dL (8.6-10.3); Carbon Dioxide 29 mEq/L (23-29); Chloride 98 mEq/L (98-107); Globulin 2.8 g/dL (2.4-3.5); Glucose 206 mg/dL (70-105); Osmolality,Calculated 292 (280-300); Potassium 3.8 mEq/L (3.5-5.1); Sodium 137 mEq/L (136-145); Total Protein 6.6 g/dL (6.4-8.9); eGFR For African Americans > 60 (> 60); eGFR For Non-African Americans > 60 (> 60)
[2021-11-05 13:35] LABS: Hypochromasia Present (Not Present); Ovalocytes 1+ (Not Present); Polychromasia 1+ (Not Present); Stomatocytes 1+ (Not Present); Tear Drop Cells 1+ (Not Present)
[2021-11-05] MEDS: clonazePAM 0.5 MG TABLET PO PRN ×2 (14:34→21:55)
[2021-11-05] MEDS: rOPINIRole 0.25 MG TABLET PO SCH (21:50)
[2021-11-05] MEDS: Melatonin 3 MG TABLET PO PRN (21:51)
[2021-11-05] MEDS: Azithromycin 500 MG in 0.9 % Sodium Chloride 250 ML IVPB SCH (23:10)
[2021-11-06] MEDS: Ipratropium/Albuterol Neb 3 ML IH SCH ×4 (04:58→23:12)
[2021-11-06] MEDS: Budesonide/Formoterol 160/4.5 1 PUFF INH IH SCH ×3 (08:57→23:11)
[2021-11-06] MEDS: Tiotropium 10 INH DOSE IH SCH (08:57)
[2021-11-06] MEDS: Furosemide 20 MG TABLET PO SCH ×2 (09:15→20:40)
[2021-11-06] MEDS: Magnesium Oxide 400 MG TABLET PO SCH (09:16)
[2021-11-06] MEDS: Aspirin 81 MG TAB.CHEW PO SCH (09:16)
[2021-11-06] MEDS: *HR* Rivaroxaban 10 MG TABLET PO SCH (09:16)
[2021-11-06] MEDS: predniSONE 20 MG TABLET PO SCH (09:17)
[2021-11-06] MEDS: Fluticasone Propionate Nasal 50 MCG/SPRAY BOTTLE NS SCH (09:17)
[2021-11-06] MEDS: Psyllium 1 PACKET POWD.PACK PO SCH (09:25)
[2021-11-06] MEDS: Insulin LISPRO 300 UNITS/3 ML VIAL SUBQ SCH ×4 (09:27→20:39)
[2021-11-06] MEDS: Insulin DETEMIR 100 UNIT/ML X5UNITS SUBQ SCH ×2 (09:37→20:40)
[2021-11-06] MEDS: Albuterol 2.5 MG/3 ML NEBULIZER IH PRN (11:16)
[2021-11-06 12:21] LABS: Basophils % 0.6 %; Hemoglobin 8.5 g/dL (12.9-16.9); Nucleated Red Blood Cells 0.2 /100 WBC (0)
[2021-11-06 12:23] LABS: Basophils # 0.1 K/mcL (0.0-0.2); Eosinophils # 0.2 K/mcL (0.0-0.6); Eosinophils % 1.2 %; Hematocrit 31.2 % (37.5-50.1); Immature Granulocytes % 2.5 % (0-4); Lymphocytes # 2.1 K/mcL (0.6-4.6); Lymphocytes % 12.8 %; Mean Corpuscular HGB Conc 27.2 g/dL (31.6-35.5); Mean Corpuscular Volume 80.8 fL (83.0-100.0); Mean Platelet Volume 8.6 fL (9.4-12.4); Monocytes # 1.3 K/mcL (0.0-1.3); Monocytes % 7.5 %; Neutrophils # 12.6 K/mcL (1.6-8.9); Platelet Count 480 K/mcL (140-400); Red Blood Count 3.86 M/mcL (4.19-5.50); Red Cell Distribution Width 17.2 % (11.5-14.5); Segmented Neutrophils % 75.4 %; White Blood Count 16.7 K/mcL (4.3-11.1)
[2021-11-06 12:49] LABS: Anisocytosis 1+ (Not Present); Hypochromasia Present (Not Present); Platelet Estimate Increased (Normal)
[2021-11-06] MEDS: clonazePAM 0.5 MG TABLET PO PRN (20:41)
[2021-11-06] MEDS: rOPINIRole 0.25 MG TABLET PO SCH (20:41)
[2021-11-06] MEDS: Melatonin 3 MG TABLET PO PRN (20:42)
[2021-11-06] MEDS: Azithromycin 500 MG in 0.9 % Sodium Chloride 250 ML IVPB SCH (23:35)
[2021-11-07] MEDS: Ipratropium/Albuterol Neb 3 ML IH SCH ×4 (03:30→19:49)
[2021-11-07] MEDS: Insulin DETEMIR 100 UNIT/ML X5UNITS SUBQ SCH ×2 (08:16→20:23)
[2021-11-07] MEDS: Insulin LISPRO 300 UNITS/3 ML VIAL SUBQ SCH ×4 (08:16→20:23)
[2021-11-07] MEDS: Psyllium 1 PACKET POWD.PACK PO SCH (08:16)
[2021-11-07] MEDS: Fluticasone Propionate Nasal 50 MCG/SPRAY BOTTLE NS SCH (08:16)
[2021-11-07] MEDS: Aspirin 81 MG TAB.CHEW PO SCH (08:17)
[2021-11-07] MEDS: predniSONE 20 MG TABLET PO SCH (08:17)
[2021-11-07] MEDS: *HR* Rivaroxaban 10 MG TABLET PO SCH (08:17)
[2021-11-07] MEDS: Furosemide 20 MG TABLET PO SCH ×2 (08:17→20:22)
[2021-11-07] MEDS: Magnesium Oxide 400 MG TABLET PO SCH (08:17)
[2021-11-07] MEDS: Tiotropium 10 INH DOSE IH SCH (10:58)
[2021-11-07] MEDS: Budesonide/Formoterol 160/4.5 1 PUFF INH IH SCH ×2 (11:05→19:49)
[2021-11-07] MEDS: Azithromycin 250 MG TABLET PO SCH (14:42)
[2021-11-07] MEDS: rOPINIRole 0.25 MG TABLET PO SCH (20:21)
[2021-11-07] MEDS: Melatonin 3 MG TABLET PO PRN (20:22)
[2021-11-07] MEDS: clonazePAM 0.5 MG TABLET PO PRN (20:31)
[2021-11-08] MEDS: Ipratropium/Albuterol Neb 3 ML IH SCH ×4 (03:28→23:22)
[2021-11-08] MEDS: predniSONE 20 MG TABLET PO SCH (08:34)
[2021-11-08] MEDS: Magnesium Oxide 400 MG TABLET PO SCH (08:34)
[2021-11-08] MEDS: *HR* Rivaroxaban 10 MG TABLET PO SCH (08:34)
[2021-11-08] MEDS: Psyllium 1 PACKET POWD.PACK PO SCH (08:34)
[2021-11-08] MEDS: Aspirin 81 MG TAB.CHEW PO SCH (08:35)
[2021-11-08] MEDS: Furosemide 20 MG TABLET PO SCH ×2 (08:35→20:29)
[2021-11-08] MEDS: Azithromycin 250 MG TABLET PO SCH (08:35)
[2021-11-08] MEDS: Insulin LISPRO 300 UNITS/3 ML VIAL SUBQ SCH ×4 (08:36→20:38)
[2021-11-08] MEDS: Fluticasone Propionate Nasal 50 MCG/SPRAY BOTTLE NS SCH (08:36)
[2021-11-08] MEDS: Insulin DETEMIR 100 UNIT/ML X5UNITS SUBQ SCH ×2 (08:44→20:45)
[2021-11-08] MEDS: Tiotropium 10 INH DOSE IH SCH (08:45)
[2021-11-08] MEDS: Budesonide/Formoterol 160/4.5 1 PUFF INH IH SCH ×2 (11:44→23:22)
[2021-11-08 18:27] LABS: Basophils % 0.3 %; Eosinophils % 0.1 %; Segmented Neutrophils % 89.1 %
[2021-11-08 18:29] LABS: Basophils # 0.1 K/mcL (0.0-0.2); Hematocrit 31.3 % (37.5-50.1); Hemoglobin 8.6 g/dL (12.9-16.9); Immature Granulocytes % 2.1 % (0-4); Lymphocytes # 0.9 K/mcL (0.6-4.6); Lymphocytes % 4.9 %; Mean Corpuscular HGB Conc 27.5 g/dL (31.6-35.5); Mean Corpuscular Volume 80.1 fL (83.0-100.0); Mean Platelet Volume 8.6 fL (9.4-12.4); Monocytes # 0.6 K/mcL (0.0-1.3); Monocytes % 3.5 %; Neutrophils # 16.2 K/mcL (1.6-8.9); Nucleated Red Blood Cells 0.2 /100 WBC (0); Platelet Count 447 K/mcL (140-400); Red Blood Count 3.91 M/mcL (4.19-5.50); Red Cell Distribution Width 18.1 % (11.5-14.5); White Blood Count 18.2 K/mcL (4.3-11.1)
[2021-11-08 18:42] LABS: Alanine Aminotransferase 25 Units/L (7-52); Albumin 3.6 g/dL (3.5-5.7); Albumin/Globulin Ratio 1.3 (1.1-2.2); Alkaline Phosphatase 62 Units/L (34-104); Aspartate Amino Transferase 15 Units/L (13-39); BUN/Creatinine Ratio 23 (6-26); Bilirubin,Total 0.2 mg/dL (0.3-1.0); Blood Urea Nitrogen 23 mg/dL (8-23); Calcium 8.7 mg/dL (8.6-10.3); Carbon Dioxide 25 mEq/L (23-29); Chloride 100 mEq/L (98-107); Globulin 2.7 g/dL (2.4-3.5); Glucose 456 mg/dL (70-105); Osmolality,Calculated 304 (280-300); Potassium 4.7 mEq/L (3.5-5.1); Sodium 135 mEq/L (136-145); Total Protein 6.3 g/dL (6.4-8.9); eGFR For African Americans > 60 (> 60); eGFR For Non-African Americans > 60 (> 60)
[2021-11-08 18:47] LABS: Anisocytosis 1+ (Not Present); Hypochromasia Present (Not Present)
[2021-11-08 18:48] LABS: Microcytosis Present (Not Present); Ovalocytes 1+ (Not Present); Platelet Estimate Normal (Normal); Polychromasia 1+ (Not Present); Stomatocytes 1+ (Not Present)
[2021-11-08] MEDS: clonazePAM 0.5 MG TABLET PO PRN (20:29)
[2021-11-08] MEDS: rOPINIRole 0.25 MG TABLET PO SCH (20:29)
[2021-11-08] MEDS: Melatonin 3 MG TABLET PO PRN (20:29)
[2021-11-09 02:31] LABS: Basophils # 0.1 K/mcL (0.0-0.2); Basophils % 0.4 %; Eosinophils # 0.1 K/mcL (0.0-0.6); Eosinophils % 0.8 %; Hematocrit 28.4 % (37.5-50.1); Hemoglobin 7.8 g/dL (12.9-16.9); Immature Granulocytes % 2.1 % (0-4); Lymphocytes # 2.3 K/mcL (0.6-4.6); Lymphocytes % 14.5 %; Mean Corpuscular HGB Conc 27.5 g/dL (31.6-35.5); Mean Corpuscular Hemoglobin 21.8 pg (28.0-33.3); Mean Corpuscular Volume 79.6 fL (83.0-100.0); Mean Platelet Volume 8.5 fL (9.4-12.4); Monocytes # 0.9 K/mcL (0.0-1.3); Monocytes % 5.5 %; Nucleated Red Blood Cells 0.3 /100 WBC (0); Platelet Count 374 K/mcL (140-400); Red Blood Count 3.57 M/mcL (4.19-5.50); Red Cell Distribution Width 17.7 % (11.5-14.5); Segmented Neutrophils % 76.7 %; White Blood Count 16.1 K/mcL (4.3-11.1)
[2021-11-09 02:34] LABS: Neutrophils # 12.4 K/mcL (1.6-8.9)
[2021-11-09 02:52] LABS: Alanine Aminotransferase 21 Units/L (7-52); Albumin 3.2 g/dL (3.5-5.7); Albumin/Globulin Ratio 1.4 (1.1-2.2); Alkaline Phosphatase 53 Units/L (34-104); Aspartate Amino Transferase 13 Units/L (13-39); BUN/Creatinine Ratio 22 (6-26); Bilirubin,Total 0.1 mg/dL (0.3-1.0); Blood Urea Nitrogen 20 mg/dL (8-23); Calcium 8.4 mg/dL (8.6-10.3); Carbon Dioxide 29 mEq/L (23-29); Chloride 103 mEq/L (98-107); Globulin 2.3 g/dL (2.4-3.5); Glucose 197 mg/dL (70-105); Osmolality,Calculated 296 (280-300); Polychromasia 2+ (Not Present); Potassium 3.7 mEq/L (3.5-5.1); Sodium 139 mEq/L (136-145); Total Protein 5.5 g/dL (6.4-8.9); eGFR For African Americans > 60 (> 60); eGFR For Non-African Americans > 60 (> 60)
[2021-11-09 02:53] LABS: Anisocytosis 1+ (Not Present); Hypochromasia Present (Not Present); Platelet Estimate Normal (Normal)
[2021-11-09] MEDS: Ipratropium/Albuterol Neb 3 ML IH SCH ×4 (03:38→20:21)
[2021-11-09] MEDS: Albuterol 2.5 MG/3 ML NEBULIZER IH PRN (07:34)
[2021-11-09] MEDS: Budesonide/Formoterol 160/4.5 1 PUFF INH IH SCH ×2 (07:34→20:21)
[2021-11-09] MEDS: Insulin DETEMIR 100 UNIT/ML X5UNITS SUBQ SCH (08:18)
[2021-11-09] MEDS: Fluticasone Propionate Nasal 50 MCG/SPRAY BOTTLE NS SCH (08:18)
[2021-11-09] MEDS: Insulin LISPRO 300 UNITS/3 ML VIAL SUBQ SCH ×3 (08:18→16:02)
[2021-11-09] MEDS: *HR* Rivaroxaban 10 MG TABLET PO SCH (08:19)
[2021-11-09] MEDS: Aspirin 81 MG TAB.CHEW PO SCH (08:19)
[2021-11-09] MEDS: Furosemide 20 MG TABLET PO SCH (08:19)
[2021-11-09] MEDS: Magnesium Oxide 400 MG TABLET PO SCH (08:19)
[2021-11-09] MEDS: Psyllium 1 PACKET POWD.PACK PO SCH (08:19)
[2021-11-09] MEDS: predniSONE 20 MG TABLET PO SCH (08:24)
[2021-11-09] MEDS: Tiotropium 10 INH DOSE IH SCH (11:17)
[2021-11-09] MEDS: clonazePAM 0.5 MG TABLET PO PRN (11:45)
[2021-11-09 14:40] VITALS: BP 131/68; PULSE 90; TEMP 98.2
[2021-11-09 20:24] VITALS: O2SAT 98
== END 2021-11-09 20:45 | disposition home health service (06) | DRG 190 ==
LOC: EMEROOARM 20:12 → 3BNU 20:12
PROVIDERS: ADMIT Internal Medicine; ATTEND Internal Medicine

== ENCOUNTER 2021-11-26 16:19 | Inpatient (IN) ==
[2021-11-26 18:03] LABS: Basophils # 0.1 K/mcL (0.0-0.2); Basophils % 0.5 %; Eosinophils # 0.1 K/mcL (0.0-0.6); Eosinophils % 0.6 %; Hematocrit 31.6 % (37.5-50.1); Hemoglobin 8.8 g/dL (12.9-16.9); Immature Granulocytes % 2.9 % (0-4); Lymphocytes # 1.6 K/mcL (0.6-4.6); Lymphocytes % 7.8 %; Mean Corpuscular HGB Conc 27.8 g/dL (31.6-35.5); Mean Corpuscular Hemoglobin 21.9 pg (28.0-33.3); Mean Corpuscular Volume 78.6 fL (83.0-100.0); Mean Platelet Volume 8.9 fL (9.4-12.4); Monocytes # 1.1 K/mcL (0.0-1.3); Monocytes % 5.4 %; Neutrophils # 16.5 K/mcL (1.6-8.9); Nucleated Red Blood Cells 0.5 /100 WBC (0); Platelet Count 550 K/mcL (140-400); Red Blood Count 4.02 M/mcL (4.19-5.50); Red Cell Distribution Width 18.2 % (11.5-14.5); Segmented Neutrophils % 82.8 %; White Blood Count 19.9 K/mcL (4.3-11.1)
[2021-11-26 18:16] LABS: Hypochromasia Present (Not Present)
[2021-11-26 18:20] LABS: BUN/Creatinine Ratio 16 (6-26); Blood Urea Nitrogen 18 mg/dL (8-23); Calcium 8.9 mg/dL (8.6-10.3); Carbon Dioxide 24 mEq/L (23-29); Chloride 101 mEq/L (98-107); Glucose 275 mg/dL (70-105); Osmolality,Calculated 294 (280-300); Sodium 136 mEq/L (136-145); Troponin I < 0.03 ng/mL (< 0.04); eGFR For African Americans > 60 (> 60); eGFR For Non-African Americans > 60 (> 60)
[2021-11-26 18:29] LABS: Influenza A PCR Negative (Negative); Influenza B PCR Negative (Negative); Resp. Syncytial Virus PCR Negative (Negative)
[2021-11-26 18:37] LABS: SARS-CoV-2 by PCR (In House) Negative (Negative)
[2021-11-26] MEDS ORDERED: Aspirin 81 MG TAB.CHEW PO ONE (19:15)
[2021-11-26] MEDS ORDERED: Naloxone 0.4 MG/ML INJ IVP PRN (19:50)
[2021-11-26] MEDS ORDERED: Acetaminophen 325 MG TABLET PO PRN (19:50)
[2021-11-26] MEDS ORDERED: Ondansetron ODT 4 MG TAB.RAPDIS SL PRN (19:50)
[2021-11-26] MEDS ORDERED: Nitroglycerin 0.4 MG TAB.SUBL SL PRN (20:58)
[2021-11-26] MEDS ORDERED: *HR* Dextrose 50 % in Water (Syg) 50 ML SYRINGE IVP PRN (21:12)
[2021-11-26] MEDS ORDERED: Dextrose Gel 15 GM/37.5 ML TUBE PO PRN ×2 (21:12)
[2021-11-26] MEDS ORDERED: D5% in Water 1,000 ML IVC PRN (21:12)
[2021-11-26 21:19] LABS: Estimated Average Glucose 235 mg/dl; Hemoglobin A1C 9.8 %
[2021-11-26] MEDS: predniSONE 20 MG TABLET PO SCH (21:32)
[2021-11-26] MEDS: rOPINIRole 0.25 MG TABLET PO SCH (21:33)
[2021-11-26] MEDS: clonazePAM 1 MG TABLET PO PRN (21:33)
[2021-11-26] MEDS: Furosemide 20 MG TABLET PO SCH (21:33)
[2021-11-26] MEDS: Ipratropium/Albuterol Neb 3 ML IH PRN (21:50)
[2021-11-26 23:08] LABS: Thyroid Stimulating Hormone 0.858 mcIU/mL (0.340-5.600)
[2021-11-27] MEDS: Insulin LISPRO 300 UNITS/3 ML VIAL SUBQ SCH ×5 (00:26→19:39)
[2021-11-27 02:01] LABS: Eosinophils % 1.5 %; Hemoglobin 8.5 g/dL (12.9-16.9); Lymphocytes % 10.3 %; Red Cell Distribution Width 18.5 % (11.5-14.5)
[2021-11-27 02:02] LABS: Basophils # 0.1 K/mcL (0.0-0.2); Basophils % 0.6 %; Eosinophils # 0.3 K/mcL (0.0-0.6); Hematocrit 30.9 % (37.5-50.1); Immature Granulocytes % 3.3 % (0-4); Lymphocytes # 1.7 K/mcL (0.6-4.6); Mean Corpuscular HGB Conc 27.5 g/dL (31.6-35.5); Mean Corpuscular Hemoglobin 21.7 pg (28.0-33.3); Mean Platelet Volume 8.8 fL (9.4-12.4); Monocytes # 1.3 K/mcL (0.0-1.3); Monocytes % 7.6 %; Nucleated Red Blood Cells 0.4 /100 WBC (0); Platelet Count 471 K/mcL (140-400); Red Blood Count 3.91 M/mcL (4.19-5.50); Segmented Neutrophils % 76.7 %; White Blood Count 16.9 K/mcL (4.3-11.1)
[2021-11-27 02:23] LABS: Alanine Aminotransferase 22 Units/L (7-52); Albumin 3.4 g/dL (3.5-5.7); Albumin/Globulin Ratio 1.4 (1.1-2.2); Alkaline Phosphatase 58 Units/L (34-104); Aspartate Amino Transferase 21 Units/L (13-39); BUN/Creatinine Ratio 19 (6-26); Bilirubin,Total 0.2 mg/dL (0.3-1.0); Blood Urea Nitrogen 17 mg/dL (8-23); Calcium 8.5 mg/dL (8.6-10.3); Carbon Dioxide 28 mEq/L (23-29); Chloride 100 mEq/L (98-107); Chol/HDL Ratio 3.1 (0-4.9); Cholesterol 116 mg/dL (< 200); Globulin 2.4 g/dL (2.4-3.5); Glucose 212 mg/dL (70-105); HDL Cholesterol 37 mg/dL (40-59); LDL Cholesterol,Calculated 14 mg/dL (< 100); Osmolality,Calculated 290 (280-300); Potassium 3.9 mEq/L (3.5-5.1); Sodium 136 mEq/L (136-145); Total Protein 5.8 g/dL (6.4-8.9); Triglycerides 323 mg/dL (< 150); eGFR For African Americans > 60 (> 60); eGFR For Non-African Americans > 60 (> 60)
[2021-11-27 03:37] LABS: Anisocytosis 1+ (Not Present); Hypochromasia Present (Not Present); Microcytosis Present (Not Present); Platelet Estimate Normal (Normal); Polychromasia 1+ (Not Present)
[2021-11-27] MEDS: Furosemide 20 MG TABLET PO SCH (09:06)
[2021-11-27] MEDS: Aspirin 81 MG TAB.CHEW PO SCH (09:06)
[2021-11-27] MEDS: *HR* Rivaroxaban 10 MG TABLET PO SCH (09:06)
[2021-11-27] MEDS: predniSONE 20 MG TABLET PO SCH (09:06)
[2021-11-27] MEDS: Magnesium Oxide 400 MG TABLET PO SCH (09:06)
[2021-11-27 10:58] LABS: Estimated Average Glucose 229 mg/dl; Hemoglobin A1C 9.6 %
[2021-11-27] MEDS ORDERED: Furosemide 40 MG/4 ML VIAL IVP ONE (12:13)
[2021-11-27] MEDS ORDERED: Perflutren Lipid Microsphere 1.3 ML in 0.9 % Sodium Chloride 8.7 ML IVP PRN (12:13)
[2021-11-27] MEDS: clonazePAM 1 MG TABLET PO PRN (13:12)
[2021-11-27] MEDS: Ipratropium/Albuterol Neb 3 ML IH PRN ×2 (13:50→19:50)
[2021-11-27] MEDS: rOPINIRole 0.25 MG TABLET PO SCH (19:38)
[2021-11-27] MEDS: Melatonin 3 MG TABLET PO PRN (19:42)
[2021-11-27] MEDS: Budesonide/Formoterol 160/4.5 1 PUFF INH IH SCH (19:51)
[2021-11-27] MEDS ORDERED: Insulin DETEMIR 100 UNIT/ML X5UNITS SUBQ SCH (21:00)
[2021-11-27] MEDS: Insulin DETEMIR 100 UNIT/ML X5UNITS SUBQ SCH (21:15)
[2021-11-28] MEDS: clonazePAM 1 MG TABLET PO PRN ×2 (02:48→19:54)
[2021-11-28] MEDS: Ipratropium/Albuterol Neb 3 ML IH PRN ×3 (03:13→20:28)
[2021-11-28] MEDS: Budesonide/Formoterol 160/4.5 1 PUFF INH IH SCH ×2 (07:47→20:26)
[2021-11-28] MEDS: Tiotropium 10 INH DOSE IH SCH (07:47)
[2021-11-28] MEDS: Magnesium Oxide 400 MG TABLET PO SCH (08:30)
[2021-11-28] MEDS: Insulin LISPRO 300 UNITS/3 ML VIAL SUBQ SCH ×4 (08:30→19:54)
[2021-11-28] MEDS: Insulin DETEMIR 100 UNIT/ML X5UNITS SUBQ SCH ×2 (08:30→19:54)
[2021-11-28] MEDS: Aspirin 81 MG TAB.CHEW PO SCH (08:30)
[2021-11-28] MEDS: *HR* Rivaroxaban 10 MG TABLET PO SCH (08:31)
[2021-11-28] MEDS: FERROUS SULFATE 140 MG PO SCH (08:31)
[2021-11-28] MEDS: predniSONE 20 MG TABLET PO SCH (08:31)
[2021-11-28] MEDS ORDERED: Aspirin 81 MG TAB.CHEW PO SCH (09:00)
[2021-11-28] MEDS: Fluticasone Propionate Nasal 50 MCG/SPRAY BOTTLE NS SCH (10:00)
[2021-11-28] MEDS: MethylPREDNISolone 40 MG/ML VIAL IVP SCH ×2 (16:56→23:40)
[2021-11-28] MEDS: rOPINIRole 0.25 MG TABLET PO SCH (19:53)
[2021-11-28] MEDS: Melatonin 3 MG TABLET PO PRN (19:59)
[2021-11-29] MEDS: Tiotropium 10 INH DOSE IH SCH (07:35)
[2021-11-29] MEDS: Ipratropium/Albuterol Neb 3 ML IH PRN ×2 (07:35→12:35)
[2021-11-29] MEDS: Budesonide/Formoterol 160/4.5 1 PUFF INH IH SCH ×2 (07:35→19:40)
[2021-11-29] MEDS: Roflumilast [Daliresp] 500 MCG Tablet PO SCH (07:52)
[2021-11-29] MEDS: FERROUS SULFATE 140 MG PO SCH (07:52)
[2021-11-29] MEDS: Insulin LISPRO 300 UNITS/3 ML VIAL SUBQ SCH ×4 (08:16→20:13)
[2021-11-29] MEDS: MethylPREDNISolone 40 MG/ML VIAL IVP SCH ×2 (08:16→17:20)
[2021-11-29] MEDS: Magnesium Oxide 400 MG TABLET PO SCH (08:17)
[2021-11-29] MEDS: Aspirin 81 MG TAB.CHEW PO SCH (08:17)
[2021-11-29] MEDS: Insulin DETEMIR 100 UNIT/ML X5UNITS SUBQ SCH ×2 (08:17→20:13)
[2021-11-29] MEDS: Fluticasone Propionate Nasal 50 MCG/SPRAY BOTTLE NS SCH (08:18)
[2021-11-29] MEDS: Furosemide 40 MG/4 ML VIAL IVP SCH ×2 (11:08→17:19)
[2021-11-29] MEDS: clonazePAM 1 MG TABLET PO PRN (20:09)
[2021-11-29] MEDS: rOPINIRole 0.25 MG TABLET PO SCH (20:10)
[2021-11-29] MEDS: Melatonin 3 MG TABLET PO PRN (20:10)
[2021-11-30] MEDS: Ipratropium/Albuterol Neb 3 ML IH PRN ×3 (00:08→20:06)
[2021-11-30] MEDS: MethylPREDNISolone 40 MG/ML VIAL IVP SCH ×3 (00:51→17:28)
[2021-11-30 05:28] LABS: Basophils % 0.2 %; Hematocrit 29.8 % (37.5-50.1); Hemoglobin 8.1 g/dL (12.9-16.9); Immature Granulocytes % 2.4 % (0-4); Lymphocytes # 0.9 K/mcL (0.6-4.6); Lymphocytes % 6.7 %; Mean Corpuscular HGB Conc 27.2 g/dL (31.6-35.5); Mean Corpuscular Hemoglobin 21.4 pg (28.0-33.3); Mean Corpuscular Volume 78.8 fL (83.0-100.0); Mean Platelet Volume 8.8 fL (9.4-12.4); Monocytes % 3.9 %; Nucleated Red Blood Cells 0.1 /100 WBC (0); Platelet Count 425 K/mcL (140-400); Red Blood Count 3.78 M/mcL (4.19-5.50); Red Cell Distribution Width 18.4 % (11.5-14.5); Segmented Neutrophils % 86.8 %
[2021-11-30 05:39] LABS: Monocytes # 0.6 K/mcL (0.0-1.3); Neutrophils # 12.2 K/mcL (1.6-8.9)
[2021-11-30 05:47] LABS: BUN/Creatinine Ratio 35 (6-26); Blood Urea Nitrogen 29 mg/dL (8-23); Carbon Dioxide 29 mEq/L (23-29); Chloride 102 mEq/L (98-107); Glucose 309 mg/dL (70-105); Osmolality,Calculated 300 (280-300); Potassium 4.8 mEq/L (3.5-5.1); Sodium 136 mEq/L (136-145); eGFR For African Americans > 60 (> 60); eGFR For Non-African Americans > 60 (> 60)
[2021-11-30 06:03] LABS: Anisocytosis 1+ (Not Present); Hypochromasia Present (Not Present); Microcytosis Present (Not Present); Platelet Estimate Normal (Normal); Polychromasia 1+ (Not Present)
[2021-11-30] MEDS: Insulin DETEMIR 100 UNIT/ML X5UNITS SUBQ SCH ×2 (08:26→20:08)
[2021-11-30] MEDS: Insulin LISPRO 300 UNITS/3 ML VIAL SUBQ SCH ×4 (08:27→20:08)
[2021-11-30] MEDS: Magnesium Oxide 400 MG TABLET PO SCH (08:28)
[2021-11-30] MEDS: Furosemide 40 MG/4 ML VIAL IVP SCH ×2 (08:28→17:28)
[2021-11-30] MEDS: Aspirin 81 MG TAB.CHEW PO SCH (08:28)
[2021-11-30] MEDS: FERROUS SULFATE 140 MG PO SCH (08:29)
[2021-11-30] MEDS: Fluticasone Propionate Nasal 50 MCG/SPRAY BOTTLE NS SCH (08:29)
[2021-11-30] MEDS: Roflumilast [Daliresp] 500 MCG Tablet PO SCH (08:29)
[2021-11-30] MEDS: Tiotropium 10 INH DOSE IH SCH (10:08)
[2021-11-30] MEDS: Budesonide/Formoterol 160/4.5 1 PUFF INH IH SCH ×2 (10:08→20:06)
[2021-11-30] MEDS: rOPINIRole 0.25 MG TABLET PO SCH (20:06)
[2021-11-30] MEDS: clonazePAM 1 MG TABLET PO PRN (20:20)
[2021-12-01] MEDS: MethylPREDNISolone 40 MG/ML VIAL IVP SCH ×3 (00:17→16:52)
[2021-12-01] MEDS: Budesonide/Formoterol 160/4.5 1 PUFF INH IH SCH (07:35)
[2021-12-01] MEDS: Tiotropium 10 INH DOSE IH SCH (07:35)
[2021-12-01] MEDS: Ipratropium/Albuterol Neb 3 ML IH PRN (07:35)
[2021-12-01] MEDS: FERROUS SULFATE 140 MG PO SCH (08:32)
[2021-12-01] MEDS: Furosemide 40 MG/4 ML VIAL IVP SCH ×2 (08:39→16:52)
[2021-12-01] MEDS: Insulin LISPRO 300 UNITS/3 ML VIAL SUBQ SCH ×3 (08:39→16:52)
[2021-12-01] MEDS: Aspirin 81 MG TAB.CHEW PO SCH (08:40)
[2021-12-01] MEDS: Magnesium Oxide 400 MG TABLET PO SCH (08:40)
[2021-12-01] MEDS: Roflumilast [Daliresp] 500 MCG Tablet PO SCH (08:40)
[2021-12-01] MEDS: Fluticasone Propionate Nasal 50 MCG/SPRAY BOTTLE NS SCH (08:51)
[2021-12-01] MEDS: Insulin DETEMIR 100 UNIT/ML X5UNITS SUBQ SCH (08:54)
[2021-12-01 11:20] VITALS: BP 139/83; PULSE 73; TEMP 97.6; O2SAT 97
== END 2021-12-01 18:28 | disposition home health service (06) | DRG 191 ==
LOC: 3BNU 16:19 → EMEROOARM 16:19 → SUATTDRO 19:27 → 3BNU 20:06
PROVIDERS: ADMIT Internal Medicine; ATTEND Registered Nurse

== ENCOUNTER 2022-01-14 11:26 | Inpatient (IN) ==
[2022-01-14] MEDS ORDERED: methylPREDNISolone 125 MG/2 ML VIAL IVP ONE (11:52)
[2022-01-14] MEDS ORDERED: Ipratropium/Albuterol Neb 3 ML IH ONE (11:52)
[2022-01-14] MEDS ORDERED: Isovue-370 500 ML BOTTLE IVP ONE (12:02)
[2022-01-14 12:08] LABS: Hemoglobin 8.6 g/dL (12.9-16.9); Red Cell Distribution Width 18.5 % (11.5-14.5)
[2022-01-14 12:09] LABS: Basophils # 0.1 K/mcL (0.0-0.2); Basophils % 0.4 %; Eosinophils # 0.1 K/mcL (0.0-0.6); Eosinophils % 0.7 %; Hematocrit 31.7 % (37.5-50.1); Immature Granulocytes % 2.2 % (0-4); Lymphocytes # 0.7 K/mcL (0.6-4.6); Lymphocytes % 4.2 %; Mean Corpuscular HGB Conc 27.1 g/dL (31.6-35.5); Mean Corpuscular Hemoglobin 20.5 pg (28.0-33.3); Mean Corpuscular Volume 75.7 fL (83.0-100.0); Mean Platelet Volume 8.8 fL (9.4-12.4); Monocytes # 0.9 K/mcL (0.0-1.3); Monocytes % 5.9 %; Neutrophils # 13.6 K/mcL (1.6-8.9); Nucleated Red Blood Cells 0.5 /100 WBC (0); Platelet Count 436 K/mcL (140-400); Red Blood Count 4.19 M/mcL (4.19-5.50); Segmented Neutrophils % 86.6 %; White Blood Count 15.7 K/mcL (4.3-11.1)
[2022-01-14 12:12] LABS: Bacteria,Urine Few per hpf (None-Few); Bilirubin,Urine Negative (Negative); Blood,Urine Small (Negative); Clarity,Urine Ex.Turbid (Clear); Color,Urine Yellow (Yellow); Glucose,Urine (UA) >=1000 mg/dL (Normal); Ketones,Urine Negative (Negative); Leukocyte Esterase,Urine Large (Negative); Nitrite,Urine Positive (Negative); Protein,Urine 30 mg/dL (Neg-Trace); RBC,Urine 30-50 per hpf (0-3); Specific Gravity,Urine > 1.030 (1.010-1.025); Squamous Epithelial Cell,Urine Few per hpf (None-Few); Urobilinogen,Urine Normal (Normal); WBC,Urine TNTC per hpf (0-3)
[2022-01-14 12:17] LABS: INR 1.3; Prothrombin Time 14.4 Seconds (9.4-12.1)
[2022-01-14 12:20] LABS: Activated Partial Thrombo Time 41.7 Seconds (26.0-36.0)
[2022-01-14 12:28] LABS: Alanine Aminotransferase 27 Units/L (7-52); Albumin 3.8 g/dL (3.5-5.7); Albumin/Globulin Ratio 1.4 (1.1-2.2); Alkaline Phosphatase 67 Units/L (34-104); Aspartate Amino Transferase 14 Units/L (13-39); BUN/Creatinine Ratio 24 (6-26); Bilirubin,Direct 0.1 mg/dL (0.0-0.2); Bilirubin,Indirect 0.1 mg/dL (0.0-1.0); Bilirubin,Total 0.2 mg/dL (0.3-1.0); Blood Urea Nitrogen 19 mg/dL (8-23); Calcium 9.1 mg/dL (8.6-10.3); Carbon Dioxide 21 mEq/L (23-29); Chloride 100 mEq/L (98-107); Globulin 2.8 g/dL (2.4-3.5); Glucose 338 mg/dL (70-105); Osmolality,Calculated 296 (280-300); Potassium 4.5 mEq/L (3.5-5.1); Sodium 135 mEq/L (136-145); Total Protein 6.6 g/dL (6.4-8.9); Troponin I < 0.03 ng/mL (< 0.04); eGFR For African Americans > 60 (> 60); eGFR For Non-African Americans > 60 (> 60)
[2022-01-14] MEDS ORDERED: cefTRIAXone 1,000 MG in 0.9 % Sodium Chloride 10 ML IVP ONE ×2 (12:43→15:30)
[2022-01-14] MEDS ORDERED: 0.9 % Sodium Chloride 1,000 ML IV ONE (12:44)
[2022-01-14 13:03] LABS: Anisocytosis 1+ (Not Present); Platelet Estimate Increased (Normal)
[2022-01-14 13:19] LABS: Influenza A PCR Negative (Negative); Influenza B PCR Negative (Negative); Resp. Syncytial Virus PCR Negative (Negative)
[2022-01-14 13:42] LABS: SARS-CoV-2 by PCR (In House) Negative (Negative)
[2022-01-14] MEDS ORDERED: Naloxone 0.4 MG/ML INJ IVP PRN (15:30)
[2022-01-14] MEDS ORDERED: Ondansetron 4 MG/2 ML VIAL IVP PRN (15:30)
[2022-01-14] MEDS: Ipratropium/Albuterol Neb 3 ML IH SCH ×3 (16:09→23:46)
[2022-01-14] MEDS: Insulin LISPRO 300 UNITS/3 ML VIAL SUBQ SCH (17:26)
[2022-01-14] MEDS: Budesonide/Formoterol 160/4.5 1 PUFF INH IH SCH (20:20)
[2022-01-14] MEDS: Lactobacillus 1 EACH CAP.SPRINK PO SCH (20:46)
[2022-01-14] MEDS: clonazePAM 1 MG TABLET PO PRN (20:46)
[2022-01-14] MEDS: Chlorhexidine Rinse 15 ML MOUTHWASH MM SCH (20:46)
[2022-01-14] MEDS: Furosemide 20 MG TABLET PO SCH (20:46)
[2022-01-14] MEDS: *HR* Rivaroxaban 10 MG TABLET PO SCH (20:46)
[2022-01-14] MEDS: predniSONE 20 MG TABLET PO SCH (21:59)
[2022-01-14] MEDS: Insulin DETEMIR 100 UNIT/ML X5UNITS SUBQ SCH (22:00)
[2022-01-15] MEDS: Ipratropium/Albuterol Neb 3 ML IH SCH ×6 (04:26→23:55)
[2022-01-15 05:44] LABS: Eosinophils % 0.3 %; Red Cell Distribution Width 18.3 % (11.5-14.5)
[2022-01-15 05:46] LABS: Basophils # 0.1 K/mcL (0.0-0.2); Basophils % 0.4 %; Hematocrit 28.6 % (37.5-50.1); Hemoglobin 7.5 g/dL (12.9-16.9); Immature Granulocytes % 2.7 % (0-4); Lymphocytes # 0.8 K/mcL (0.6-4.6); Lymphocytes % 6.7 %; Mean Corpuscular HGB Conc 26.2 g/dL (31.6-35.5); Mean Corpuscular Volume 76.3 fL (83.0-100.0); Monocytes # 0.7 K/mcL (0.0-1.3); Monocytes % 6.1 %; Neutrophils # 9.8 K/mcL (1.6-8.9); Nucleated Red Blood Cells 0.4 /100 WBC (0); Platelet Count 347 K/mcL (140-400); Red Blood Count 3.75 M/mcL (4.19-5.50); Segmented Neutrophils % 83.8 %; White Blood Count 11.7 K/mcL (4.3-11.1)
[2022-01-15 06:01] LABS: INR 1.2; Prothrombin Time 13.5 Seconds (9.4-12.1)
[2022-01-15 06:03] LABS: Activated Partial Thrombo Time 36.2 Seconds (26.0-36.0)
[2022-01-15 06:11] LABS: Alanine Aminotransferase 23 Units/L (7-52); Albumin 3.5 g/dL (3.5-5.7); Albumin/Globulin Ratio 1.3 (1.1-2.2); Alkaline Phosphatase 57 Units/L (34-104); Aspartate Amino Transferase 12 Units/L (13-39); BUN/Creatinine Ratio 25 (6-26); Bilirubin,Total 0.2 mg/dL (0.3-1.0); Blood Urea Nitrogen 20 mg/dL (8-23); Calcium 9.1 mg/dL (8.6-10.3); Carbon Dioxide 25 mEq/L (23-29); Chloride 101 mEq/L (98-107); Globulin 2.6 g/dL (2.4-3.5); Glucose 228 mg/dL (70-105); Magnesium 1.9 mg/dL (1.6-2.6); Osmolality,Calculated 294 (280-300); Phosphorous 3.7 mg/dL (2.7-4.5); Sodium 137 mEq/L (136-145); Total Protein 6.1 g/dL (6.4-8.9); eGFR For African Americans > 60 (> 60); eGFR For Non-African Americans > 60 (> 60)
[2022-01-15 06:19] LABS: Platelet Estimate Normal (Normal)
[2022-01-15 06:20] LABS: Anisocytosis 1+ (Not Present); Polychromasia 1+ (Not Present)
[2022-01-15 06:28] LABS: Ferritin 11 ng/mL (20-250); Folate 12.2 ng/mL (3.0-16.0); Iron < 10 mcg/dL (65-175); Transferrin 288 mg/dL (203-362)
[2022-01-15] MEDS ORDERED: Iron Sucrose Complex 400 MG in 0.9 % Sodium Chloride 250 ML IVPB ONE (07:34)
[2022-01-15] MEDS ORDERED: Saline Nasal Spray 44 ML BOTTLE NS PRN (07:46)
[2022-01-15] MEDS: Budesonide/Formoterol 160/4.5 1 PUFF INH IH SCH ×2 (08:13→19:54)
[2022-01-15] MEDS: predniSONE 20 MG TABLET PO SCH (08:16)
[2022-01-15] MEDS: Chlorhexidine Rinse 15 ML MOUTHWASH MM SCH ×2 (08:16→20:22)
[2022-01-15] MEDS: Psyllium 1 PACKET POWD.PACK PO SCH (08:16)
[2022-01-15] MEDS: Cholecalciferol (D-3) 1,000 UNIT (25MCG) TABLET PO SCH (08:17)
[2022-01-15] MEDS: Magnesium Oxide 400 MG TABLET PO SCH (08:17)
[2022-01-15] MEDS: Cyanocobalamin (B-12) 1,000 MCG TABLET PO SCH (08:17)
[2022-01-15] MEDS: Loratadine 10 MG TABLET PO SCH (08:17)
[2022-01-15] MEDS: Furosemide 20 MG TABLET PO SCH ×2 (08:17→20:24)
[2022-01-15] MEDS: Aspirin 81 MG TAB.CHEW PO SCH (08:17)
[2022-01-15] MEDS: Lactobacillus 1 EACH CAP.SPRINK PO SCH ×2 (08:17→20:21)
[2022-01-15] MEDS: Insulin LISPRO 300 UNITS/3 ML VIAL SUBQ SCH ×5 (08:18→16:14)
[2022-01-15] MEDS: Fluticasone Propionate Nasal 50 MCG/SPRAY BOTTLE NS SCH (08:19)
[2022-01-15] MEDS: Insulin DETEMIR 100 UNIT/ML X5UNITS SUBQ SCH ×2 (08:27→21:44)
[2022-01-15] MEDS ORDERED: cefTRIAXone 2,000 MG in 0.9 % Sodium Chloride 10 ML IVPB SCH (09:00)
[2022-01-15 09:07] LABS: Hemoglobin 8.4 g/dL (12.9-16.9)
[2022-01-15 13:48] LABS: Estimated Average Glucose 243 mg/dl; Hemoglobin A1C 10.1 %
[2022-01-15] MEDS: levoFLOXacin 750 MG TABLET PO SCH (15:14)
[2022-01-15] MEDS: *HR* Rivaroxaban 10 MG TABLET PO SCH (16:13)
[2022-01-15] MEDS: clonazePAM 1 MG TABLET PO PRN (17:53)
[2022-01-15] MEDS: rOPINIRole 0.25 MG TABLET PO SCH (20:21)
[2022-01-16] MEDS: Ipratropium/Albuterol Neb 3 ML IH SCH ×6 (03:08→23:53)
[2022-01-16] MEDS ORDERED: Acetaminophen 325 MG TABLET PO ONE (04:22)
[2022-01-16 07:09] LABS: Red Cell Distribution Width 18.6 % (11.5-14.5)
[2022-01-16 07:10] LABS: Hematocrit 27.8 % (37.5-50.1); Hemoglobin 7.6 g/dL (12.9-16.9); Mean Corpuscular HGB Conc 27.3 g/dL (31.6-35.5); Mean Corpuscular Hemoglobin 20.5 pg (28.0-33.3); Mean Corpuscular Volume 74.9 fL (83.0-100.0); Platelet Count 272 K/mcL (140-400); Red Blood Count 3.71 M/mcL (4.19-5.50); White Blood Count 13.7 K/mcL (4.3-11.1)
[2022-01-16 07:15] LABS: INR 1.2; Prothrombin Time 13.8 Seconds (9.4-12.1)
[2022-01-16] MEDS: Budesonide/Formoterol 160/4.5 1 PUFF INH IH SCH ×2 (07:26→20:33)
[2022-01-16 07:27] LABS: BUN/Creatinine Ratio 26 (6-26); Blood Urea Nitrogen 20 mg/dL (8-23); Calcium 8.9 mg/dL (8.6-10.3); Carbon Dioxide 28 mEq/L (23-29); Chloride 101 mEq/L (98-107); Glucose 133 mg/dL (70-105); Magnesium 1.9 mg/dL (1.6-2.6); Osmolality,Calculated 289 (280-300); Phosphorous 3.5 mg/dL (2.7-4.5); Potassium 3.6 mEq/L (3.5-5.1); Sodium 137 mEq/L (136-145); eGFR For African Americans > 60 (> 60); eGFR For Non-African Americans > 60 (> 60)
[2022-01-16] MEDS: Insulin LISPRO 300 UNITS/3 ML VIAL SUBQ SCH ×6 (07:28→15:42)
[2022-01-16] MEDS ORDERED: Iron Sucrose Complex 400 MG in 0.9 % Sodium Chloride 250 ML IVPB ONE (07:38)
[2022-01-16] MEDS: Magnesium Oxide 400 MG TABLET PO SCH (09:09)
[2022-01-16] MEDS: Cholecalciferol (D-3) 1,000 UNIT (25MCG) TABLET PO SCH (09:10)
[2022-01-16] MEDS: Aspirin 81 MG TAB.CHEW PO SCH (09:10)
[2022-01-16] MEDS: predniSONE 20 MG TABLET PO SCH (09:10)
[2022-01-16] MEDS: Lactobacillus 1 EACH CAP.SPRINK PO SCH ×2 (09:10→20:41)
[2022-01-16] MEDS: Furosemide 20 MG TABLET PO SCH ×2 (09:10→20:40)
[2022-01-16] MEDS: Cyanocobalamin (B-12) 1,000 MCG TABLET PO SCH (09:11)
[2022-01-16] MEDS: Multivit/Ca/Min/Fe/FA 1 TAB TABLET PO SCH (09:11)
[2022-01-16] MEDS: Psyllium 1 PACKET POWD.PACK PO SCH (09:11)
[2022-01-16] MEDS: levoFLOXacin 750 MG TABLET PO SCH (09:11)
[2022-01-16] MEDS: Insulin DETEMIR 100 UNIT/ML X5UNITS SUBQ SCH ×2 (09:11→20:41)
[2022-01-16] MEDS: Chlorhexidine Rinse 15 ML MOUTHWASH MM SCH (09:12)
[2022-01-16] MEDS: Fluticasone Propionate Nasal 50 MCG/SPRAY BOTTLE NS SCH (09:12)
[2022-01-16] MEDS: Loratadine 10 MG TABLET PO SCH (09:12)
[2022-01-16] MEDS: clonazePAM 1 MG TABLET PO PRN (09:56)
[2022-01-16] MEDS: *HR* Rivaroxaban 10 MG TABLET PO SCH (15:42)
[2022-01-16] MEDS: rOPINIRole 0.25 MG TABLET PO SCH (20:41)
[2022-01-16] MEDS: Melatonin 3 MG TABLET PO PRN (20:47)
[2022-01-17 01:53] LABS: Hematocrit 30.1 % (37.5-50.1); Mean Corpuscular HGB Conc 26.6 g/dL (31.6-35.5); Mean Corpuscular Hemoglobin 20.2 pg (28.0-33.3); Mean Corpuscular Volume 75.8 fL (83.0-100.0); Mean Platelet Volume 8.6 fL (9.4-12.4); Platelet Count 346 K/mcL (140-400); Red Blood Count 3.97 M/mcL (4.19-5.50); Red Cell Distribution Width 18.7 % (11.5-14.5); White Blood Count 11.5 K/mcL (4.3-11.1)
[2022-01-17 02:15] LABS: BUN/Creatinine Ratio 21 (6-26); Blood Urea Nitrogen 20 mg/dL (8-23); Calcium 8.7 mg/dL (8.6-10.3); Carbon Dioxide 27 mEq/L (23-29); Chloride 102 mEq/L (98-107); Glucose 320 mg/dL (70-105); Osmolality,Calculated 297 (280-300); Potassium 3.9 mEq/L (3.5-5.1); Sodium 136 mEq/L (136-145); eGFR For African Americans > 60 (> 60); eGFR For Non-African Americans > 60 (> 60)
[2022-01-17] MEDS: Ipratropium/Albuterol Neb 3 ML IH SCH ×5 (04:03→20:59)
[2022-01-17] MEDS: Budesonide/Formoterol 160/4.5 1 PUFF INH IH SCH ×2 (07:36→20:59)
[2022-01-17] MEDS: Cholecalciferol (D-3) 1,000 UNIT (25MCG) TABLET PO SCH (08:46)
[2022-01-17] MEDS: clonazePAM 1 MG TABLET PO PRN (08:46)
[2022-01-17] MEDS: Magnesium Oxide 400 MG TABLET PO SCH (08:47)
[2022-01-17] MEDS: Psyllium 1 PACKET POWD.PACK PO SCH (08:47)
[2022-01-17] MEDS: Multivit/Ca/Min/Fe/FA 1 TAB TABLET PO SCH (08:47)
[2022-01-17] MEDS: Lactobacillus 1 EACH CAP.SPRINK PO SCH ×2 (08:48→21:12)
[2022-01-17] MEDS: Loratadine 10 MG TABLET PO SCH (08:48)
[2022-01-17] MEDS: Furosemide 20 MG TABLET PO SCH ×2 (08:49→17:08)
[2022-01-17] MEDS: predniSONE 20 MG TABLET PO SCH (08:49)
[2022-01-17] MEDS: Aspirin 81 MG TAB.CHEW PO SCH (08:51)
[2022-01-17] MEDS: Cyanocobalamin (B-12) 1,000 MCG TABLET PO SCH (08:54)
[2022-01-17] MEDS: Insulin LISPRO 300 UNITS/3 ML VIAL SUBQ SCH ×6 (08:55→17:08)
[2022-01-17] MEDS: Insulin DETEMIR 100 UNIT/ML X5UNITS SUBQ SCH ×2 (08:59→21:12)
[2022-01-17] MEDS ORDERED: Acetaminophen 325 MG TABLET PO ONE (12:42)
[2022-01-17] MEDS: *HR* Rivaroxaban 10 MG TABLET PO SCH (17:07)
[2022-01-17] MEDS: rOPINIRole 0.25 MG TABLET PO SCH (21:11)
[2022-01-17] MEDS: Melatonin 3 MG TABLET PO PRN (21:16)
[2022-01-18] MEDS: Ipratropium/Albuterol Neb 3 ML IH SCH ×7 (00:17→23:24)
[2022-01-18 02:04] LABS: Hematocrit 28.6 % (37.5-50.1); Hemoglobin 7.5 g/dL (12.9-16.9); Mean Corpuscular HGB Conc 26.2 g/dL (31.6-35.5); Mean Corpuscular Hemoglobin 20.1 pg (28.0-33.3); Mean Corpuscular Volume 76.5 fL (83.0-100.0); Mean Platelet Volume 8.5 fL (9.4-12.4); Platelet Count 316 K/mcL (140-400); Red Blood Count 3.74 M/mcL (4.19-5.50); White Blood Count 11.6 K/mcL (4.3-11.1)
[2022-01-18 02:24] LABS: BUN/Creatinine Ratio 22 (6-26); Blood Urea Nitrogen 17 mg/dL (8-23); Calcium 8.7 mg/dL (8.6-10.3); Carbon Dioxide 30 mEq/L (23-29); Chloride 100 mEq/L (98-107); Glucose 226 mg/dL (70-105); Osmolality,Calculated 293 (280-300); Potassium 3.8 mEq/L (3.5-5.1); Sodium 137 mEq/L (136-145); eGFR For African Americans > 60 (> 60); eGFR For Non-African Americans > 60 (> 60)
[2022-01-18] MEDS: Budesonide/Formoterol 160/4.5 1 PUFF INH IH SCH ×2 (07:39→20:46)
[2022-01-18] MEDS: Cholecalciferol (D-3) 1,000 UNIT (25MCG) TABLET PO SCH (09:15)
[2022-01-18] MEDS: Magnesium Oxide 400 MG TABLET PO SCH (09:15)
[2022-01-18] MEDS: predniSONE 20 MG TABLET PO SCH (09:15)
[2022-01-18] MEDS: Psyllium 1 PACKET POWD.PACK PO SCH (09:15)
[2022-01-18] MEDS: Multivit/Ca/Min/Fe/FA 1 TAB TABLET PO SCH (09:15)
[2022-01-18] MEDS: Aspirin 81 MG TAB.CHEW PO SCH (09:16)
[2022-01-18] MEDS: clonazePAM 1 MG TABLET PO PRN ×2 (09:16→20:31)
[2022-01-18] MEDS: Loratadine 10 MG TABLET PO SCH (09:16)
[2022-01-18] MEDS: Furosemide 20 MG TABLET PO SCH ×2 (09:17→16:33)
[2022-01-18] MEDS: Lactobacillus 1 EACH CAP.SPRINK PO SCH ×2 (09:17→20:30)
[2022-01-18] MEDS: Cyanocobalamin (B-12) 1,000 MCG TABLET PO SCH (09:17)
[2022-01-18] MEDS: Insulin LISPRO 300 UNITS/3 ML VIAL SUBQ SCH ×6 (09:18→16:33)
[2022-01-18] MEDS: Insulin DETEMIR 100 UNIT/ML X5UNITS SUBQ SCH ×2 (09:18→20:32)
[2022-01-18 16:06] LABS: ABG Base Excess 3 mEq/L (-2 to 3); ABG HCO3 28 mEq/L (21-27); ABG Oxygen Saturation 94 % (95-98); ABG PCO2 46 mmHg (35-45); ABG PO2 71 mmHg (85-104); ABG TCO2 30 mEq/L (20-26)
[2022-01-18] MEDS: *HR* Rivaroxaban 10 MG TABLET PO SCH (16:33)
[2022-01-18] MEDS: rOPINIRole 0.25 MG TABLET PO SCH (20:30)
[2022-01-18] MEDS: Melatonin 3 MG TABLET PO PRN (20:31)
[2022-01-19] MEDS ORDERED: Insulin LISPRO 300 UNITS/3 ML VIAL SUBQ ONE (01:37)
[2022-01-19] MEDS: Ipratropium/Albuterol Neb 3 ML IH SCH ×6 (04:17→23:28)
[2022-01-19] MEDS: Budesonide/Formoterol 160/4.5 1 PUFF INH IH SCH ×2 (07:39→20:06)
[2022-01-19] MEDS: Multivit/Ca/Min/Fe/FA 1 TAB TABLET PO SCH (07:58)
[2022-01-19] MEDS: Aspirin 81 MG TAB.CHEW PO SCH (07:58)
[2022-01-19] MEDS: Furosemide 20 MG TABLET PO SCH ×2 (07:59→16:30)
[2022-01-19] MEDS: Loratadine 10 MG TABLET PO SCH (07:59)
[2022-01-19] MEDS: Lactobacillus 1 EACH CAP.SPRINK PO SCH ×2 (07:59→20:56)
[2022-01-19] MEDS: predniSONE 20 MG TABLET PO SCH (07:59)
[2022-01-19] MEDS: Cholecalciferol (D-3) 1,000 UNIT (25MCG) TABLET PO SCH (07:59)
[2022-01-19] MEDS: Cyanocobalamin (B-12) 1,000 MCG TABLET PO SCH (08:01)
[2022-01-19] MEDS: Magnesium Oxide 400 MG TABLET PO SCH (08:01)
[2022-01-19] MEDS: Psyllium 1 PACKET POWD.PACK PO SCH (08:04)
[2022-01-19] MEDS: Insulin LISPRO 300 UNITS/3 ML VIAL SUBQ SCH ×6 (08:04→16:30)
[2022-01-19] MEDS: Insulin DETEMIR 100 UNIT/ML X5UNITS SUBQ SCH ×2 (11:30→20:59)
[2022-01-19] MEDS: *HR* Rivaroxaban 10 MG TABLET PO SCH (16:30)
[2022-01-19] MEDS: rOPINIRole 0.25 MG TABLET PO SCH (20:57)
[2022-01-19] MEDS: Melatonin 3 MG TABLET PO PRN (20:57)
[2022-01-19] MEDS: clonazePAM 1 MG TABLET PO PRN (20:57)
[2022-01-20] MEDS: Ipratropium/Albuterol Neb 3 ML IH SCH ×6 (03:33→23:21)
[2022-01-20] MEDS: Insulin DETEMIR 100 UNIT/ML X5UNITS SUBQ SCH ×2 (07:40→19:30)
[2022-01-20] MEDS: Insulin LISPRO 300 UNITS/3 ML VIAL SUBQ SCH ×6 (07:40→16:44)
[2022-01-20] MEDS: Loratadine 10 MG TABLET PO SCH (07:42)
[2022-01-20] MEDS: Cholecalciferol (D-3) 1,000 UNIT (25MCG) TABLET PO SCH (07:42)
[2022-01-20] MEDS: Furosemide 20 MG TABLET PO SCH ×2 (07:42→16:44)
[2022-01-20] MEDS: Lactobacillus 1 EACH CAP.SPRINK PO SCH ×2 (07:42→19:29)
[2022-01-20] MEDS: Aspirin 81 MG TAB.CHEW PO SCH (07:42)
[2022-01-20] MEDS: Magnesium Oxide 400 MG TABLET PO SCH (07:43)
[2022-01-20] MEDS: Psyllium 1 PACKET POWD.PACK PO SCH (07:43)
[2022-01-20] MEDS: Multivit/Ca/Min/Fe/FA 1 TAB TABLET PO SCH (07:43)
[2022-01-20] MEDS: Cyanocobalamin (B-12) 1,000 MCG TABLET PO SCH (07:43)
[2022-01-20] MEDS: predniSONE 20 MG TABLET PO SCH (07:43)
[2022-01-20] MEDS: Budesonide/Formoterol 160/4.5 1 PUFF INH IH SCH ×2 (07:51→19:33)
[2022-01-20] MEDS: *HR* Rivaroxaban 10 MG TABLET PO SCH (16:43)
[2022-01-20] MEDS ORDERED: *HR* Dextrose 50 % in Water (Syg) 50 ML SYRINGE IVP PRN (19:11)
[2022-01-20] MEDS ORDERED: Dextrose 4 GM Chewable Tablets PO PRN ×2 (19:11)
[2022-01-20] MEDS ORDERED: D5% in Water 1,000 ML IVC PRN (19:11)
[2022-01-20] MEDS: rOPINIRole 0.25 MG TABLET PO SCH (19:28)
[2022-01-20] MEDS: Melatonin 3 MG TABLET PO PRN (19:29)
[2022-01-20] MEDS: clonazePAM 1 MG TABLET PO PRN (19:29)
[2022-01-20] MEDS ORDERED: Insulin LISPRO 300 UNITS/3 ML VIAL SUBQ SCH (21:00)
[2022-01-21] MEDS: Ipratropium/Albuterol Neb 3 ML IH SCH ×2 (03:53→07:26)
[2022-01-21 06:36] VITALS: BP 145/70; PULSE 96; TEMP 97.4; O2SAT 100
[2022-01-21] MEDS: Budesonide/Formoterol 160/4.5 1 PUFF INH IH SCH (07:26)
[2022-01-21] MEDS: Cholecalciferol (D-3) 1,000 UNIT (25MCG) TABLET PO SCH (08:05)
[2022-01-21] MEDS: Insulin DETEMIR 100 UNIT/ML X5UNITS SUBQ SCH (08:05)
[2022-01-21] MEDS: Magnesium Oxide 400 MG TABLET PO SCH (08:05)
[2022-01-21] MEDS: Lactobacillus 1 EACH CAP.SPRINK PO SCH (08:06)
[2022-01-21] MEDS: Multivit/Ca/Min/Fe/FA 1 TAB TABLET PO SCH (08:06)
[2022-01-21] MEDS: Furosemide 20 MG TABLET PO SCH (08:06)
[2022-01-21] MEDS: Loratadine 10 MG TABLET PO SCH (08:06)
[2022-01-21] MEDS: Psyllium 1 PACKET POWD.PACK PO SCH (08:06)
[2022-01-21] MEDS: Aspirin 81 MG TAB.CHEW PO SCH (08:06)
[2022-01-21] MEDS: Insulin LISPRO 300 UNITS/3 ML VIAL SUBQ SCH ×2 (08:07→08:08)
[2022-01-21] MEDS: predniSONE 20 MG TABLET PO SCH (08:07)
[2022-01-21] MEDS: Cyanocobalamin (B-12) 1,000 MCG TABLET PO SCH (08:07)
== END 2022-01-21 10:49 | disposition home health service (06) | DRG 871 ==
LOC: SUATTDRO → 2ANU 11:26 → EMEROOARM 11:26 → SUATTDRO 15:41 → 2ANU 16:42 → SUATTDRO 20:02
PROVIDERS: ADMIT Internal Medicine; ATTEND Internal Medicine

== ENCOUNTER 2022-02-11 19:37 | Inpatient (IN) ==
[2022-02-11 21:11] LABS: Basophils % 0.7 %; Mean Platelet Volume 8.9 fL (9.4-12.4); Red Blood Count 4.71 M/mcL (4.19-5.50)
[2022-02-11 21:13] LABS: Basophils # 0.1 K/mcL (0.0-0.2); Eosinophils # 0.1 K/mcL (0.0-0.6); Eosinophils % 0.4 %; Hematocrit 37.3 % (37.5-50.1); Hemoglobin 10.4 g/dL (12.9-16.9); Immature Granulocytes % 3.8 % (0-4); Lymphocytes % 9.2 %; Mean Corpuscular HGB Conc 27.9 g/dL (31.6-35.5); Mean Corpuscular Hemoglobin 22.1 pg (28.0-33.3); Mean Corpuscular Volume 79.2 fL (83.0-100.0); Monocytes # 1.2 K/mcL (0.0-1.3); Monocytes % 6.9 %; Neutrophils # 14.1 K/mcL (1.6-8.9); Nucleated Red Blood Cells 0.6 /100 WBC (0); Platelet Count 451 K/mcL (140-400); Red Cell Distribution Width 22.5 % (11.5-14.5); White Blood Count 17.9 K/mcL (4.3-11.1)
[2022-02-11 21:16] LABS: Lymphocytes # 1.7 K/mcL (0.6-4.6)
[2022-02-11 21:41] LABS: BUN/Creatinine Ratio 21 (6-26); Blood Urea Nitrogen 19 mg/dL (8-23); Calcium 10.1 mg/dL (8.6-10.3); Carbon Dioxide 26 mEq/L (23-29); Chloride 96 mEq/L (98-107); Glucose 289 mg/dL (70-105); Osmolality,Calculated 295 (280-300); Potassium 4.1 mEq/L (3.5-5.1); Sodium 136 mEq/L (136-145); Troponin I < 0.03 ng/mL (< 0.04); eGFR For African Americans > 60 (> 60); eGFR For Non-African Americans > 60 (> 60)
[2022-02-12] MEDS ORDERED: Vancomycin 2,000 MG/520 ML IV.SOLN IVPB ONE (00:14)
[2022-02-12] MEDS ORDERED: Piperacillin/Tazobactam 3.375 GM in 0.9 % Sodium Chloride Mini Bag 100 ML IVPB ONE (00:14)
[2022-02-12] MEDS ORDERED: Naloxone 0.4 MG/ML INJ IVP PRN (02:22)
[2022-02-12] MEDS ORDERED: D5% in Water 1,000 ML IVC PRN (02:41)
[2022-02-12] MEDS ORDERED: Dextrose 4 GM Chewable Tablets PO PRN ×2 (02:41)
[2022-02-12] MEDS ORDERED: *HR* Dextrose 50 % in Water (Syg) 50 ML SYRINGE IVP PRN (02:41)
[2022-02-12 03:42] LABS: Activated Partial Thrombo Time 31.4 Seconds (26.0-36.0)
[2022-02-12] MEDS: Insulin DETEMIR 100 UNIT/ML X5UNITS SUBQ SCH ×2 (04:00→23:09)
[2022-02-12 04:22] LABS: Bilirubin,Urine Negative (Negative); Blood,Urine Negative (Negative); Clarity,Urine Clear (Clear); Color,Urine Colorless (Yellow); Glucose,Urine (UA) >=1000 mg/dL (Normal); Ketones,Urine Negative (Negative); Leukocyte Esterase,Urine Negative (Negative); Mucus,Urine Few per lpf (None-Few); Nitrite,Urine Negative (Negative); PH,Urine 5.5 pH Units (5.0-8.0); Protein,Urine Trace mg/dL (Neg-Trace); Specific Gravity,Urine > 1.030 (1.010-1.025); Squamous Epithelial Cell,Urine Few per hpf (None-Few); Urobilinogen,Urine Normal (Normal); WBC,Urine 0-3 per hpf (0-3)
[2022-02-12] MEDS: Insulin LISPRO 300 UNITS/3 ML VIAL SUBQ SCH ×3 (05:00→17:50)
[2022-02-12] MEDS: Azithromycin 500 MG in 0.9 % Sodium Chloride 250 ML IVPB SCH (05:24)
[2022-02-12] MEDS: MethylPREDNISolone 40 MG/ML VIAL IVP SCH ×3 (05:24→18:00)
[2022-02-12] MEDS: Ipratropium/Albuterol Neb 3 ML IH SCH ×5 (06:03→20:13)
[2022-02-12 06:55] LABS: Adenovirus Not Detected (Not Detect); Bordetella Pertussis Not Detected (Not Detect); Chlamydophila pneumoniae Not Detected (Not Detect); Coronavirus 229E Not Detected (Not Detect); Coronavirus HKU1 Not Detected (Not Detect); Coronavirus NL63 Not Detected (Not Detect); Coronavirus OC43 Not Detected (Not Detect); Human Metapneumovirus Not Detected (Not Detect); Human Rhinovirus/Enterovirus Not Detected (Not Detect); Influenza A Subtype 2009 H1 Not Detected (Not Detect); Influenza B Not Detected (Not Detect); Mycoplasma pneumoniae Not Detected (Not Detect); Parainfluenza Virus 1 Not Detected (Not Detect); Parainfluenza Virus 2 Not Detected (Not Detect); Parainfluenza Virus 3 Not Detected (Not Detect); Parainfluenza Virus 4 Not Detected (Not Detect); Respiratory Syncytial Virus Not Detected (Not Detect); SARS-CoV-2 Not Detected (Not Detect)
[2022-02-12] MEDS: Aspirin 81 MG TAB.CHEW PO SCH (08:32)
[2022-02-12] MEDS: cephALEXin 500 MG CAPSULE PO SCH ×4 (08:32→23:06)
[2022-02-12] MEDS: *HR* Rivaroxaban 10 MG TABLET PO SCH (08:32)
[2022-02-12 08:35] LABS: Hematocrit 33.5 % (37.5-50.1); Hemoglobin 9.2 g/dL (12.9-16.9); Mean Corpuscular HGB Conc 27.5 g/dL (31.6-35.5); Mean Corpuscular Hemoglobin 22.1 pg (28.0-33.3); Mean Corpuscular Volume 80.5 fL (83.0-100.0); Mean Platelet Volume 8.7 fL (9.4-12.4); Platelet Count 346 K/mcL (140-400); Red Blood Count 4.16 M/mcL (4.19-5.50); Red Cell Distribution Width 22.2 % (11.5-14.5); White Blood Count 15.6 K/mcL (4.3-11.1)
[2022-02-12 08:46] LABS: BUN/Creatinine Ratio 27 (6-26); Blood Urea Nitrogen 22 mg/dL (8-23); Calcium 9.2 mg/dL (8.6-10.3); Carbon Dioxide 32 mEq/L (23-29); Chloride 96 mEq/L (98-107); Glucose 216 mg/dL (70-105); Osmolality,Calculated 290 (280-300); Potassium 3.5 mEq/L (3.5-5.1); Sodium 135 mEq/L (136-145); eGFR For African Americans > 60 (> 60); eGFR For Non-African Americans > 60 (> 60)
[2022-02-12] MEDS ORDERED: Acetaminophen 325 MG TABLET PO PRN (12:17)
[2022-02-12] MEDS: Budesonide/Formoterol 160/4.5 1 PUFF INH IH SCH (20:13)
[2022-02-12] MEDS ORDERED: Furosemide 20 MG TABLET PO SCH (21:00)
[2022-02-12] MEDS: Furosemide 20 MG/2 ML VIAL IVP SCH (23:06)
[2022-02-12] MEDS: Melatonin 3 MG TABLET PO PRN (23:08)
[2022-02-12] MEDS: rOPINIRole 0.25 MG TABLET PO SCH (23:08)
[2022-02-12] MEDS: clonazePAM 1 MG TABLET PO PRN (23:09)
[2022-02-13] MEDS: Ipratropium/Albuterol Neb 3 ML IH SCH ×7 (00:18→23:36)
[2022-02-13] MEDS: Insulin LISPRO 300 UNITS/3 ML VIAL SUBQ SCH ×4 (01:55→21:11)
[2022-02-13 02:54] LABS: Basophils % 0.5 %; Hematocrit 34.1 % (37.5-50.1); Immature Granulocytes % 2.7 % (0-4); Mean Platelet Volume 8.7 fL (9.4-12.4); Nucleated Red Blood Cells 0.1 /100 WBC (0)
[2022-02-13 02:56] LABS: Basophils # 0.1 K/mcL (0.0-0.2); Eosinophils # 0.2 K/mcL (0.0-0.6); Hemoglobin 9.5 g/dL (12.9-16.9); Lymphocytes # 2.1 K/mcL (0.6-4.6); Lymphocytes % 14.1 %; Mean Corpuscular HGB Conc 27.9 g/dL (31.6-35.5); Mean Corpuscular Hemoglobin 22.1 pg (28.0-33.3); Mean Corpuscular Volume 79.5 fL (83.0-100.0); Monocytes % 6.8 %; Neutrophils # 11.2 K/mcL (1.6-8.9); Platelet Count 331 K/mcL (140-400); Red Blood Count 4.29 M/mcL (4.19-5.50); Segmented Neutrophils % 74.9 %; White Blood Count 14.9 K/mcL (4.3-11.1)
[2022-02-13 03:13] LABS: BUN/Creatinine Ratio 31 (6-26); Blood Urea Nitrogen 28 mg/dL (8-23); Calcium 9.7 mg/dL (8.6-10.3); Carbon Dioxide 31 mEq/L (23-29); Chloride 93 mEq/L (98-107); Glucose 295 mg/dL (70-105); Osmolality,Calculated 296 (280-300); Sodium 135 mEq/L (136-145); eGFR For African Americans > 60 (> 60); eGFR For Non-African Americans > 60 (> 60)
[2022-02-13 04:01] LABS: Anisocytosis 2+ (Not Present); Hypochromasia Present (Not Present); Platelet Estimate Normal (Normal)
[2022-02-13] MEDS: Azithromycin 500 MG in 0.9 % Sodium Chloride 250 ML IVPB SCH (04:44)
[2022-02-13] MEDS: MethylPREDNISolone 40 MG/ML VIAL IVP SCH (06:05)
[2022-02-13] MEDS: Budesonide/Formoterol 160/4.5 1 PUFF INH IH SCH ×2 (07:38→19:40)
[2022-02-13] MEDS: Tiotropium 10 INH DOSE IH SCH (07:38)
[2022-02-13] MEDS: Cholecalciferol (D-3) 1,000 UNIT (25MCG) TABLET PO SCH (08:36)
[2022-02-13] MEDS: Aspirin 81 MG TAB.CHEW PO SCH (08:37)
[2022-02-13] MEDS: *HR* Rivaroxaban 10 MG TABLET PO SCH (08:37)
[2022-02-13] MEDS: Multivit/Ca/Min/Fe/FA 1 TAB TABLET PO SCH (08:37)
[2022-02-13] MEDS: Loratadine 10 MG TABLET PO SCH (08:37)
[2022-02-13] MEDS: cephALEXin 500 MG CAPSULE PO SCH ×4 (08:38→19:56)
[2022-02-13] MEDS: Psyllium 1 PACKET POWD.PACK PO SCH (08:38)
[2022-02-13] MEDS: Roflumilast [Daliresp] 500 MCG Tablet PO SCH (08:39)
[2022-02-13] MEDS: Fluticasone Propionate Nasal 50 MCG/SPRAY BOTTLE NS SCH (08:40)
[2022-02-13] MEDS ORDERED: FERROUS SULFATE 220 MG/5 ML PO SCH (09:00)
[2022-02-13] MEDS: Furosemide 20 MG/2 ML VIAL IVP SCH ×2 (11:40→19:55)
[2022-02-13] MEDS: Ferrous Sulfate Oral Soln 300 MG/5 ML UDC PO SCH (11:49)
[2022-02-13] MEDS ORDERED: Insulin LISPRO 300 UNITS/3 ML VIAL SUBQ SCH (16:30)
[2022-02-13] MEDS: rOPINIRole 0.25 MG TABLET PO SCH (19:56)
[2022-02-13] MEDS: Melatonin 3 MG TABLET PO PRN (20:00)
[2022-02-13] MEDS: clonazePAM 1 MG TABLET PO PRN (20:00)
[2022-02-13] MEDS: Insulin DETEMIR 100 UNIT/ML X5UNITS SUBQ SCH (21:11)
[2022-02-14] MEDS: Insulin LISPRO 300 UNITS/3 ML VIAL SUBQ SCH ×4 (00:07→17:22)
[2022-02-14] MEDS: Ipratropium/Albuterol Neb 3 ML IH SCH ×6 (03:27→23:53)
[2022-02-14 03:37] LABS: Red Cell Distribution Width 21.7 % (11.5-14.5)
[2022-02-14 03:39] LABS: Hematocrit 34.7 % (37.5-50.1); Hemoglobin 9.5 g/dL (12.9-16.9); Mean Corpuscular HGB Conc 27.4 g/dL (31.6-35.5); Mean Corpuscular Hemoglobin 21.9 pg (28.0-33.3); Mean Corpuscular Volume 80.1 fL (83.0-100.0); Mean Platelet Volume 8.9 fL (9.4-12.4); Platelet Count 307 K/mcL (140-400); Red Blood Count 4.33 M/mcL (4.19-5.50); White Blood Count 12.8 K/mcL (4.3-11.1)
[2022-02-14 03:51] LABS: BUN/Creatinine Ratio 31 (6-26); Blood Urea Nitrogen 26 mg/dL (8-23); Calcium 9.2 mg/dL (8.6-10.3); Carbon Dioxide 32 mEq/L (23-29); Chloride 95 mEq/L (98-107); Glucose 278 mg/dL (70-105); Osmolality,Calculated 297 (280-300); Potassium 3.4 mEq/L (3.5-5.1); Sodium 136 mEq/L (136-145); eGFR For African Americans > 60 (> 60); eGFR For Non-African Americans > 60 (> 60)
[2022-02-14] MEDS: Azithromycin 500 MG in 0.9 % Sodium Chloride 250 ML IVPB SCH (05:14)
[2022-02-14] MEDS: Budesonide/Formoterol 160/4.5 1 PUFF INH IH SCH ×2 (07:49→19:44)
[2022-02-14] MEDS: Tiotropium 10 INH DOSE IH SCH (07:49)
[2022-02-14] MEDS: metOLazone 5 MG TABLET PO SCH (11:41)
[2022-02-14] MEDS: Aspirin 81 MG TAB.CHEW PO SCH (11:41)
[2022-02-14] MEDS: predniSONE 20 MG TABLET PO SCH (11:41)
[2022-02-14] MEDS: Cholecalciferol (D-3) 1,000 UNIT (25MCG) TABLET PO SCH (11:41)
[2022-02-14] MEDS: Multivit/Ca/Min/Fe/FA 1 TAB TABLET PO SCH (11:42)
[2022-02-14] MEDS: Loratadine 10 MG TABLET PO SCH (11:42)
[2022-02-14] MEDS: Ferrous Sulfate Oral Soln 300 MG/5 ML UDC PO SCH (11:42)
[2022-02-14] MEDS: *HR* Rivaroxaban 10 MG TABLET PO SCH (11:42)
[2022-02-14] MEDS: Furosemide 20 MG/2 ML VIAL IVP SCH ×2 (11:43→21:49)
[2022-02-14] MEDS: Fluticasone Propionate Nasal 50 MCG/SPRAY BOTTLE NS SCH (11:47)
[2022-02-14] MEDS: Psyllium 1 PACKET POWD.PACK PO SCH (11:48)
[2022-02-14] MEDS: Nystatin POWDER 30 GM BOTTLE TP SCH ×2 (11:57→21:36)
[2022-02-14] MEDS: Insulin DETEMIR 100 UNIT/ML X5UNITS SUBQ SCH ×2 (12:00→21:43)
[2022-02-14] MEDS: cephALEXin 500 MG CAPSULE PO SCH ×4 (12:00→21:35)
[2022-02-14] MEDS: Roflumilast [Daliresp] 500 MCG Tablet PO SCH (12:00)
[2022-02-14] MEDS: Ondansetron 4 MG/2 ML VIAL IVP PRN (14:16)
[2022-02-14] MEDS ORDERED: Insulin LISPRO 300 UNITS/3 ML VIAL SUBQ SCH (21:30)
[2022-02-14] MEDS: clonazePAM 1 MG TABLET PO PRN (21:36)
[2022-02-14] MEDS: Melatonin 3 MG TABLET PO PRN (21:36)
[2022-02-14] MEDS: rOPINIRole 0.25 MG TABLET PO SCH (21:36)
[2022-02-15 02:48] LABS: Hematocrit 36.6 % (37.5-50.1); Hemoglobin 10.1 g/dL (12.9-16.9); Mean Corpuscular HGB Conc 27.6 g/dL (31.6-35.5); Mean Corpuscular Hemoglobin 21.9 pg (28.0-33.3); Mean Corpuscular Volume 79.4 fL (83.0-100.0); Platelet Count 356 K/mcL (140-400); Red Blood Count 4.61 M/mcL (4.19-5.50); Red Cell Distribution Width 21.7 % (11.5-14.5); White Blood Count 15.3 K/mcL (4.3-11.1)
[2022-02-15 02:55] LABS: BUN/Creatinine Ratio 28 (6-26); Blood Urea Nitrogen 23 mg/dL (8-23); Calcium 9.4 mg/dL (8.6-10.3); Carbon Dioxide 32 mEq/L (23-29); Chloride 91 mEq/L (98-107); Glucose 241 mg/dL (70-105); Osmolality,Calculated 296 (280-300); Potassium 2.8 mEq/L (3.5-5.1); Sodium 137 mEq/L (136-145); eGFR For African Americans > 60 (> 60); eGFR For Non-African Americans > 60 (> 60)
[2022-02-15] MEDS ORDERED: Potassium Chloride Elixir 20 MEQ/15 ML UDC PO ONE (03:51)
[2022-02-15] MEDS: Ipratropium/Albuterol Neb 3 ML IH SCH ×6 (04:06→23:21)
[2022-02-15] MEDS: Azithromycin 500 MG in 0.9 % Sodium Chloride 250 ML IVPB SCH (04:18)
[2022-02-15] MEDS: Tiotropium 10 INH DOSE IH SCH (07:22)
[2022-02-15] MEDS: Insulin LISPRO 300 UNITS/3 ML VIAL SUBQ SCH ×4 (09:13→20:06)
[2022-02-15] MEDS: Fluticasone Propionate Nasal 50 MCG/SPRAY BOTTLE NS SCH (09:18)
[2022-02-15] MEDS: Ferrous Sulfate Oral Soln 300 MG/5 ML UDC PO SCH (09:19)
[2022-02-15] MEDS: Psyllium 1 PACKET POWD.PACK PO SCH (09:19)
[2022-02-15] MEDS: predniSONE 20 MG TABLET PO SCH (09:19)
[2022-02-15] MEDS: Nystatin POWDER 30 GM BOTTLE TP SCH (09:19)
[2022-02-15] MEDS: cephALEXin 500 MG CAPSULE PO SCH ×4 (09:19→20:02)
[2022-02-15] MEDS: *HR* Rivaroxaban 10 MG TABLET PO SCH (09:20)
[2022-02-15] MEDS: Aspirin 81 MG TAB.CHEW PO SCH (09:20)
[2022-02-15] MEDS: Loratadine 10 MG TABLET PO SCH (09:20)
[2022-02-15] MEDS: Cholecalciferol (D-3) 1,000 UNIT (25MCG) TABLET PO SCH (09:20)
[2022-02-15] MEDS: Multivit/Ca/Min/Fe/FA 1 TAB TABLET PO SCH (09:20)
[2022-02-15] MEDS: metOLazone 5 MG TABLET PO SCH (09:21)
[2022-02-15] MEDS: Furosemide 20 MG/2 ML VIAL IVP SCH ×2 (09:21→20:06)
[2022-02-15] MEDS: Insulin DETEMIR 100 UNIT/ML X5UNITS SUBQ SCH ×2 (10:37→22:38)
[2022-02-15] MEDS: Budesonide/Formoterol 160/4.5 1 PUFF INH IH SCH ×2 (11:13→20:10)
[2022-02-15] MEDS: Roflumilast [Daliresp] 500 MCG Tablet PO SCH (15:19)
[2022-02-15] MEDS ORDERED: Insulin LISPRO 300 UNITS/3 ML VIAL SUBQ ONE (16:32)
[2022-02-15] MEDS: clonazePAM 1 MG TABLET PO PRN (20:02)
[2022-02-15] MEDS: rOPINIRole 0.25 MG TABLET PO SCH (20:02)
[2022-02-15] MEDS: Melatonin 3 MG TABLET PO PRN (21:47)
[2022-02-16 02:15] LABS: Basophils # 0.1 K/mcL (0.0-0.2); Basophils % 0.6 %; Eosinophils # 0.2 K/mcL (0.0-0.6); Eosinophils % 1.2 %; Hematocrit 35.1 % (37.5-50.1); Hemoglobin 9.9 g/dL (12.9-16.9); Immature Granulocytes % 3.1 % (0-4); Lymphocytes # 1.7 K/mcL (0.6-4.6); Lymphocytes % 11.7 %; Mean Corpuscular HGB Conc 28.2 g/dL (31.6-35.5); Mean Corpuscular Hemoglobin 22.3 pg (28.0-33.3); Mean Corpuscular Volume 79.2 fL (83.0-100.0); Mean Platelet Volume 8.9 fL (9.4-12.4); Monocytes # 0.9 K/mcL (0.0-1.3); Neutrophils # 11.2 K/mcL (1.6-8.9); Platelet Count 326 K/mcL (140-400); Red Blood Count 4.43 M/mcL (4.19-5.50); Red Cell Distribution Width 21.7 % (11.5-14.5); Segmented Neutrophils % 77.4 %; White Blood Count 14.4 K/mcL (4.3-11.1)
[2022-02-16 02:33] LABS: BUN/Creatinine Ratio 27 (6-26); Blood Urea Nitrogen 28 mg/dL (8-23); Calcium 9.5 mg/dL (8.6-10.3); Carbon Dioxide 32 mEq/L (23-29); Chloride 91 mEq/L (98-107); Glucose 296 mg/dL (70-105); Osmolality,Calculated 292 (280-300); Sodium 133 mEq/L (136-145); eGFR For African Americans > 60 (> 60); eGFR For Non-African Americans > 60 (> 60)
[2022-02-16 03:20] LABS: Hypochromasia Present (Not Present)
[2022-02-16 03:21] LABS: Anisocytosis 3+ (Not Present); Platelet Estimate Normal (Normal); Stomatocytes 1+ (Not Present)
[2022-02-16] MEDS: Ipratropium/Albuterol Neb 3 ML IH SCH ×6 (04:06→23:24)
[2022-02-16] MEDS: Azithromycin 500 MG in 0.9 % Sodium Chloride 250 ML IVPB SCH (04:31)
[2022-02-16] MEDS: Tiotropium 10 INH DOSE IH SCH (07:17)
[2022-02-16] MEDS: Insulin LISPRO 300 UNITS/3 ML VIAL SUBQ SCH ×4 (08:23→19:56)
[2022-02-16] MEDS: Insulin DETEMIR 100 UNIT/ML X5UNITS SUBQ SCH ×2 (08:24→19:56)
[2022-02-16] MEDS: Ferrous Sulfate Oral Soln 300 MG/5 ML UDC PO SCH (08:25)
[2022-02-16] MEDS: Ondansetron 4 MG/2 ML VIAL IVP PRN (08:26)
[2022-02-16] MEDS: Furosemide 20 MG/2 ML VIAL IVP SCH ×2 (08:29→19:56)
[2022-02-16] MEDS: Aspirin 81 MG TAB.CHEW PO SCH (08:31)
[2022-02-16] MEDS: predniSONE 20 MG TABLET PO SCH (08:31)
[2022-02-16] MEDS: metOLazone 5 MG TABLET PO SCH (08:31)
[2022-02-16] MEDS: Multivit/Ca/Min/Fe/FA 1 TAB TABLET PO SCH (08:31)
[2022-02-16] MEDS: Cholecalciferol (D-3) 1,000 UNIT (25MCG) TABLET PO SCH (08:31)
[2022-02-16] MEDS: Loratadine 10 MG TABLET PO SCH (08:32)
[2022-02-16] MEDS: *HR* Rivaroxaban 10 MG TABLET PO SCH (08:33)
[2022-02-16] MEDS: cephALEXin 500 MG CAPSULE PO SCH ×4 (08:34→22:15)
[2022-02-16] MEDS: Fluticasone Propionate Nasal 50 MCG/SPRAY BOTTLE NS SCH (08:35)
[2022-02-16] MEDS: Nystatin POWDER 30 GM BOTTLE TP SCH ×3 (08:35→19:57)
[2022-02-16] MEDS: Psyllium 1 PACKET POWD.PACK PO SCH (08:36)
[2022-02-16] MEDS: Roflumilast [Daliresp] 500 MCG Tablet PO SCH (08:36)
[2022-02-16] MEDS: Budesonide/Formoterol 160/4.5 1 PUFF INH IH SCH ×2 (10:36→19:57)
[2022-02-16] MEDS: rOPINIRole 0.25 MG TABLET PO SCH (19:55)
[2022-02-16] MEDS: Melatonin 3 MG TABLET PO PRN (22:16)
[2022-02-16] MEDS: clonazePAM 1 MG TABLET PO PRN (22:17)
[2022-02-17 03:41] LABS: Hemoglobin 9.3 g/dL (12.9-16.9); Nucleated Red Blood Cells 0.1 /100 WBC (0)
[2022-02-17 03:43] LABS: Basophils # 0.1 K/mcL (0.0-0.2); Basophils % 0.6 %; Eosinophils # 0.2 K/mcL (0.0-0.6); Eosinophils % 1.7 %; Hematocrit 33.1 % (37.5-50.1); Lymphocytes # 1.8 K/mcL (0.6-4.6); Lymphocytes % 12.4 %; Mean Corpuscular HGB Conc 28.1 g/dL (31.6-35.5); Mean Corpuscular Hemoglobin 21.9 pg (28.0-33.3); Mean Corpuscular Volume 77.9 fL (83.0-100.0); Mean Platelet Volume 8.8 fL (9.4-12.4); Monocytes # 0.9 K/mcL (0.0-1.3); Monocytes % 6.1 %; Platelet Count 327 K/mcL (140-400); Red Blood Count 4.25 M/mcL (4.19-5.50); Red Cell Distribution Width 22.1 % (11.5-14.5); Segmented Neutrophils % 75.2 %; White Blood Count 14.4 K/mcL (4.3-11.1)
[2022-02-17 04:01] LABS: Neutrophils # 10.8 K/mcL (1.6-8.9)
[2022-02-17 04:07] LABS: BUN/Creatinine Ratio 33 (6-26); Blood Urea Nitrogen 37 mg/dL (8-23); Calcium 9.4 mg/dL (8.6-10.3); Carbon Dioxide 31 mEq/L (23-29); Chloride 90 mEq/L (98-107); Glucose 273 mg/dL (70-105); Magnesium 2.1 mg/dL (1.6-2.6); Osmolality,Calculated 292 (280-300); Potassium 3.4 mEq/L (3.5-5.1); Sodium 132 mEq/L (136-145); eGFR For African Americans > 60 (> 60); eGFR For Non-African Americans > 60 (> 60)
[2022-02-17 04:08] LABS: Anisocytosis 2+ (Not Present); Microcytosis Present (Not Present); Platelet Estimate Normal (Normal)
[2022-02-17] MEDS: Ipratropium/Albuterol Neb 3 ML IH SCH ×5 (04:25→20:27)
[2022-02-17] MEDS: Budesonide/Formoterol 160/4.5 1 PUFF INH IH SCH ×2 (07:16→20:27)
[2022-02-17] MEDS: Tiotropium 10 INH DOSE IH SCH (07:17)
[2022-02-17] MEDS: metOLazone 5 MG TABLET PO SCH (09:04)
[2022-02-17] MEDS: Cholecalciferol (D-3) 1,000 UNIT (25MCG) TABLET PO SCH (09:04)
[2022-02-17] MEDS: Multivit/Ca/Min/Fe/FA 1 TAB TABLET PO SCH (09:04)
[2022-02-17] MEDS: cephALEXin 500 MG CAPSULE PO SCH ×4 (09:05→22:40)
[2022-02-17] MEDS: Aspirin 81 MG TAB.CHEW PO SCH (09:05)
[2022-02-17] MEDS: Loratadine 10 MG TABLET PO SCH (09:06)
[2022-02-17] MEDS: *HR* Rivaroxaban 10 MG TABLET PO SCH (09:06)
[2022-02-17] MEDS: predniSONE 20 MG TABLET PO SCH (09:06)
[2022-02-17] MEDS: Fluticasone Propionate Nasal 50 MCG/SPRAY BOTTLE NS SCH (09:12)
[2022-02-17] MEDS: Insulin LISPRO 300 UNITS/3 ML VIAL SUBQ SCH ×4 (09:13→22:35)
[2022-02-17] MEDS: Insulin DETEMIR 100 UNIT/ML X5UNITS SUBQ SCH ×2 (09:14→22:31)
[2022-02-17] MEDS: Furosemide 20 MG/2 ML VIAL IVP SCH ×2 (09:15→22:30)
[2022-02-17] MEDS: Ferrous Sulfate Oral Soln 300 MG/5 ML UDC PO SCH (09:27)
[2022-02-17] MEDS: Nystatin POWDER 30 GM BOTTLE TP SCH ×2 (09:29→22:30)
[2022-02-17] MEDS: Psyllium 1 PACKET POWD.PACK PO SCH (09:29)
[2022-02-17] MEDS: Ondansetron 4 MG/2 ML VIAL IVP PRN (11:24)
[2022-02-17] MEDS ORDERED: Insulin Human Regular 10 UNIT in 0.9 % Sodium Chloride 10 ML IV ONE (17:01)
[2022-02-17] MEDS: clonazePAM 1 MG TABLET PO PRN (22:29)
[2022-02-17] MEDS: Melatonin 3 MG TABLET PO PRN (22:29)
[2022-02-17] MEDS: rOPINIRole 0.25 MG TABLET PO SCH (22:30)
[2022-02-18] MEDS: Ipratropium/Albuterol Neb 3 ML IH SCH ×6 (00:05→20:33)
[2022-02-18] MEDS: Tiotropium 10 INH DOSE IH SCH (07:40)
[2022-02-18] MEDS: Psyllium 1 PACKET POWD.PACK PO SCH (08:08)
[2022-02-18] MEDS: Nystatin POWDER 30 GM BOTTLE TP SCH ×2 (08:08→20:29)
[2022-02-18] MEDS: Insulin LISPRO 300 UNITS/3 ML VIAL SUBQ SCH ×7 (08:09→21:24)
[2022-02-18] MEDS: Ferrous Sulfate Oral Soln 300 MG/5 ML UDC PO SCH (08:10)
[2022-02-18] MEDS: cephALEXin 500 MG CAPSULE PO SCH ×4 (08:10→20:28)
[2022-02-18] MEDS: *HR* Rivaroxaban 10 MG TABLET PO SCH (08:11)
[2022-02-18] MEDS: Aspirin 81 MG TAB.CHEW PO SCH (08:11)
[2022-02-18] MEDS: predniSONE 20 MG TABLET PO SCH (08:11)
[2022-02-18] MEDS: Loratadine 10 MG TABLET PO SCH (08:11)
[2022-02-18] MEDS: Multivit/Ca/Min/Fe/FA 1 TAB TABLET PO SCH (08:11)
[2022-02-18] MEDS: Furosemide 40 MG TABLET PO SCH (08:11)
[2022-02-18] MEDS: Cholecalciferol (D-3) 1,000 UNIT (25MCG) TABLET PO SCH (08:11)
[2022-02-18] MEDS: Fluticasone Propionate Nasal 50 MCG/SPRAY BOTTLE NS SCH (08:11)
[2022-02-18] MEDS: metOLazone 5 MG TABLET PO SCH (08:11)
[2022-02-18] MEDS: Insulin DETEMIR 100 UNIT/ML X5UNITS SUBQ SCH ×2 (09:05→21:29)
[2022-02-18 10:11] LABS: Basophils # 0.1 K/mcL (0.0-0.2); Basophils % 0.5 %; Eosinophils # 0.3 K/mcL (0.0-0.6); Hematocrit 31.1 % (37.5-50.1); Hemoglobin 8.8 g/dL (12.9-16.9); Immature Granulocytes % 2.8 % (0-4); Immature Platelets 2.7 % (1.1-6.1); Lymphocytes # 1.6 K/mcL (0.6-4.6); Lymphocytes % 12.2 %; Mean Corpuscular HGB Conc 28.3 g/dL (31.6-35.5); Mean Corpuscular Hemoglobin 22.6 pg (28.0-33.3); Mean Corpuscular Volume 79.7 fL (83.0-100.0); Monocytes # 0.9 K/mcL (0.0-1.3); Monocytes % 6.7 %; Neutrophils # 10.2 K/mcL (1.6-8.9); Platelet Count 287 K/mcL (140-400); Red Cell Distribution Width 22.3 % (11.5-14.5); Segmented Neutrophils % 75.8 %; White Blood Count 13.4 K/mcL (4.3-11.1)
[2022-02-18 10:26] LABS: BUN/Creatinine Ratio 41 (6-26); Blood Urea Nitrogen 38 mg/dL (8-23); Calcium 9.1 mg/dL (8.6-10.3); Carbon Dioxide 31 mEq/L (23-29); Chloride 93 mEq/L (98-107); Glucose 206 mg/dL (70-105); Osmolality,Calculated 291 (280-300); Potassium 3.3 mEq/L (3.5-5.1); Sodium 133 mEq/L (136-145); eGFR For African Americans > 60 (> 60); eGFR For Non-African Americans > 60 (> 60)
[2022-02-18 11:00] LABS: Anisocytosis 1+ (Not Present); Platelet Estimate Normal (Normal)
[2022-02-18] MEDS: Budesonide/Formoterol 160/4.5 1 PUFF INH IH SCH ×2 (11:07→20:33)
[2022-02-18] MEDS ORDERED: Insulin Human Regular 10 UNIT in 0.9 % Sodium Chloride 10 ML IV ONE ×2 (17:08→19:13)
[2022-02-18 20:09] LABS: BUN/Creatinine Ratio 32 (6-26); Blood Urea Nitrogen 42 mg/dL (8-23); Calcium 9.2 mg/dL (8.6-10.3); Carbon Dioxide 28 mEq/L (23-29); Chloride 91 mEq/L (98-107); Glucose 511 mg/dL (70-105); Osmolality,Calculated 305 (280-300); Potassium 4.5 mEq/L (3.5-5.1); Sodium 131 mEq/L (136-145); eGFR For African Americans > 60 (> 60); eGFR For Non-African Americans 55 (> 60)
[2022-02-18] MEDS: rOPINIRole 0.25 MG TABLET PO SCH (20:26)
[2022-02-18] MEDS: Melatonin 3 MG TABLET PO PRN (20:27)
[2022-02-18] MEDS: clonazePAM 1 MG TABLET PO PRN (20:29)
[2022-02-19] MEDS: Ipratropium/Albuterol Neb 3 ML IH SCH ×7 (00:27→23:39)
[2022-02-19 05:34] LABS: Basophils % 0.7 %
[2022-02-19 05:36] LABS: Basophils # 0.1 K/mcL (0.0-0.2); Eosinophils # 0.3 K/mcL (0.0-0.6); Hematocrit 31.5 % (37.5-50.1); Hemoglobin 8.7 g/dL (12.9-16.9); Immature Granulocytes % 3.5 % (0-4); Lymphocytes # 1.8 K/mcL (0.6-4.6); Lymphocytes % 13.3 %; Mean Corpuscular HGB Conc 27.6 g/dL (31.6-35.5); Mean Corpuscular Hemoglobin 22.1 pg (28.0-33.3); Mean Corpuscular Volume 79.9 fL (83.0-100.0); Mean Platelet Volume 8.6 fL (9.4-12.4); Monocytes % 7.3 %; Neutrophils # 9.7 K/mcL (1.6-8.9); Platelet Count 297 K/mcL (140-400); Red Blood Count 3.94 M/mcL (4.19-5.50); Red Cell Distribution Width 22.2 % (11.5-14.5); Segmented Neutrophils % 73.2 %; White Blood Count 13.2 K/mcL (4.3-11.1)
[2022-02-19 06:45] LABS: BUN/Creatinine Ratio 38 (6-26); Blood Urea Nitrogen 35 mg/dL (8-23); Calcium 9.4 mg/dL (8.6-10.3); Carbon Dioxide 33 mEq/L (23-29); Chloride 93 mEq/L (98-107); Glucose 213 mg/dL (70-105); Osmolality,Calculated 294 (280-300); Potassium 3.1 mEq/L (3.5-5.1); Sodium 135 mEq/L (136-145); eGFR For African Americans > 60 (> 60); eGFR For Non-African Americans > 60 (> 60)
[2022-02-19 06:49] LABS: Anisocytosis 2+ (Not Present); Hypochromasia Present (Not Present); Platelet Estimate Normal (Normal)
[2022-02-19] MEDS: Fluticasone Propionate Nasal 50 MCG/SPRAY BOTTLE NS SCH (08:11)
[2022-02-19] MEDS: Insulin DETEMIR 100 UNIT/ML X5UNITS SUBQ SCH ×2 (08:11→20:39)
[2022-02-19] MEDS: Psyllium 1 PACKET POWD.PACK PO SCH (08:11)
[2022-02-19] MEDS: Nystatin POWDER 30 GM BOTTLE TP SCH ×2 (08:11→22:03)
[2022-02-19] MEDS: Insulin LISPRO 300 UNITS/3 ML VIAL SUBQ SCH ×7 (08:12→20:40)
[2022-02-19] MEDS: Cholecalciferol (D-3) 1,000 UNIT (25MCG) TABLET PO SCH (08:14)
[2022-02-19] MEDS: predniSONE 20 MG TABLET PO SCH (08:14)
[2022-02-19] MEDS: Aspirin 81 MG TAB.CHEW PO SCH (08:15)
[2022-02-19] MEDS: Furosemide 40 MG TABLET PO SCH ×2 (08:15→16:12)
[2022-02-19] MEDS: *HR* Rivaroxaban 10 MG TABLET PO SCH (08:15)
[2022-02-19] MEDS: metOLazone 5 MG TABLET PO SCH (08:16)
[2022-02-19] MEDS: Loratadine 10 MG TABLET PO SCH (08:16)
[2022-02-19] MEDS: Multivit/Ca/Min/Fe/FA 1 TAB TABLET PO SCH (08:16)
[2022-02-19] MEDS: Ferrous Sulfate Oral Soln 300 MG/5 ML UDC PO SCH (08:17)
[2022-02-19] MEDS: Tiotropium 10 INH DOSE IH SCH (10:45)
[2022-02-19] MEDS: Budesonide/Formoterol 160/4.5 1 PUFF INH IH SCH ×2 (11:12→20:34)
[2022-02-19] MEDS: rOPINIRole 0.25 MG TABLET PO SCH (20:39)
[2022-02-19] MEDS ORDERED: Carbamide Peroxide 150 DROP/15 ML BOTTLE BOTH EARS ONE (21:07)
[2022-02-19] MEDS ORDERED: Carbamide Peroxide 150 DROP/15 ML BOTTLE LEFT EAR ONE (21:07)
[2022-02-19] MEDS: Melatonin 3 MG TABLET PO PRN (22:02)
[2022-02-19] MEDS: clonazePAM 1 MG TABLET PO PRN (22:02)
[2022-02-20 02:06] LABS: Basophils % 0.4 %; Hemoglobin 8.7 g/dL (12.9-16.9)
[2022-02-20 02:07] LABS: Basophils # 0.1 K/mcL (0.0-0.2); Eosinophils # 0.2 K/mcL (0.0-0.6); Eosinophils % 1.2 %; Hematocrit 30.9 % (37.5-50.1); Immature Granulocytes % 2.5 % (0-4); Lymphocytes # 1.5 K/mcL (0.6-4.6); Lymphocytes % 9.8 %; Mean Corpuscular HGB Conc 28.2 g/dL (31.6-35.5); Mean Corpuscular Hemoglobin 22.4 pg (28.0-33.3); Mean Corpuscular Volume 79.6 fL (83.0-100.0); Monocytes # 0.8 K/mcL (0.0-1.3); Monocytes % 5.4 %; Neutrophils # 12.6 K/mcL (1.6-8.9); Platelet Count 349 K/mcL (140-400); Red Blood Count 3.88 M/mcL (4.19-5.50); Red Cell Distribution Width 22.2 % (11.5-14.5); Segmented Neutrophils % 80.7 %; White Blood Count 15.6 K/mcL (4.3-11.1)
[2022-02-20 02:20] LABS: BUN/Creatinine Ratio 36 (6-26); Blood Urea Nitrogen 36 mg/dL (8-23); Calcium 9.5 mg/dL (8.6-10.3); Carbon Dioxide 34 mEq/L (23-29); Chloride 92 mEq/L (98-107); Glucose 314 mg/dL (70-105); Osmolality,Calculated 302 (280-300); Potassium 2.9 mEq/L (3.5-5.1); Sodium 136 mEq/L (136-145); eGFR For African Americans > 60 (> 60); eGFR For Non-African Americans > 60 (> 60)
[2022-02-20] MEDS: Ipratropium/Albuterol Neb 3 ML IH SCH ×5 (04:34→20:09)
[2022-02-20] MEDS: Budesonide/Formoterol 160/4.5 1 PUFF INH IH SCH ×2 (07:51→20:09)
[2022-02-20] MEDS: Tiotropium 10 INH DOSE IH SCH (07:51)
[2022-02-20] MEDS ORDERED: Potassium Chloride Elixir 20 MEQ/15 ML UDC PO SCH (09:00)
[2022-02-20] MEDS: Loratadine 10 MG TABLET PO SCH (09:03)
[2022-02-20] MEDS: Aspirin 81 MG TAB.CHEW PO SCH (09:03)
[2022-02-20] MEDS: Cholecalciferol (D-3) 1,000 UNIT (25MCG) TABLET PO SCH (09:03)
[2022-02-20] MEDS: Multivit/Ca/Min/Fe/FA 1 TAB TABLET PO SCH (09:04)
[2022-02-20] MEDS: Fluticasone Propionate Nasal 50 MCG/SPRAY BOTTLE NS SCH (09:04)
[2022-02-20] MEDS: metOLazone 5 MG TABLET PO SCH (09:04)
[2022-02-20] MEDS: Furosemide 40 MG TABLET PO SCH ×2 (09:04→17:12)
[2022-02-20] MEDS: *HR* Rivaroxaban 10 MG TABLET PO SCH (09:04)
[2022-02-20] MEDS: Psyllium 1 PACKET POWD.PACK PO SCH (09:05)
[2022-02-20] MEDS: Nystatin POWDER 30 GM BOTTLE TP SCH ×2 (09:05→20:54)
[2022-02-20] MEDS: Potassium Chloride Elixir 20 MEQ/15 ML UDC PO SCH ×2 (09:05→17:12)
[2022-02-20] MEDS: Ferrous Sulfate Oral Soln 300 MG/5 ML UDC PO SCH (09:05)
[2022-02-20] MEDS: predniSONE 20 MG TABLET PO SCH (09:06)
[2022-02-20] MEDS: Insulin LISPRO 300 UNITS/3 ML VIAL SUBQ SCH ×7 (09:08→21:09)
[2022-02-20] MEDS: Insulin DETEMIR 100 UNIT/ML X5UNITS SUBQ SCH ×2 (09:09→21:09)
[2022-02-20] MEDS: clonazePAM 1 MG TABLET PO PRN (20:53)
[2022-02-20] MEDS: rOPINIRole 0.25 MG TABLET PO SCH (20:53)
[2022-02-20] MEDS: Melatonin 3 MG TABLET PO PRN (20:54)
[2022-02-21] MEDS: Ipratropium/Albuterol Neb 3 ML IH SCH ×6 (00:30→20:37)
[2022-02-21 02:26] LABS: Basophils # 0.1 K/mcL (0.0-0.2); Basophils % 0.6 %; Eosinophils # 0.2 K/mcL (0.0-0.6); Eosinophils % 1.3 %; Hematocrit 29.7 % (37.5-50.1); Hemoglobin 8.4 g/dL (12.9-16.9); Immature Granulocytes % 2.4 % (0-4); Lymphocytes # 1.7 K/mcL (0.6-4.6); Lymphocytes % 11.9 %; Mean Corpuscular HGB Conc 28.3 g/dL (31.6-35.5); Mean Corpuscular Hemoglobin 22.5 pg (28.0-33.3); Mean Corpuscular Volume 79.4 fL (83.0-100.0); Mean Platelet Volume 8.8 fL (9.4-12.4); Monocytes # 0.9 K/mcL (0.0-1.3); Monocytes % 6.6 %; Platelet Count 335 K/mcL (140-400); Red Blood Count 3.74 M/mcL (4.19-5.50); Red Cell Distribution Width 22.4 % (11.5-14.5); Segmented Neutrophils % 77.2 %; White Blood Count 14.2 K/mcL (4.3-11.1)
[2022-02-21 02:41] LABS: BUN/Creatinine Ratio 37 (6-26); Blood Urea Nitrogen 37 mg/dL (8-23); Calcium 9.6 mg/dL (8.6-10.3); Carbon Dioxide 35 mEq/L (23-29); Chloride 93 mEq/L (98-107); Glucose 253 mg/dL (70-105); Osmolality,Calculated 303 (280-300); Potassium 2.7 mEq/L (3.5-5.1); Sodium 138 mEq/L (136-145); eGFR For African Americans > 60 (> 60); eGFR For Non-African Americans > 60 (> 60)
[2022-02-21] MEDS: Tiotropium 10 INH DOSE IH SCH (07:27)
[2022-02-21] MEDS: Budesonide/Formoterol 160/4.5 1 PUFF INH IH SCH ×2 (07:28→20:37)
[2022-02-21] MEDS: Insulin LISPRO 300 UNITS/3 ML VIAL SUBQ SCH ×6 (07:49→17:02)
[2022-02-21] MEDS: Ferrous Sulfate Oral Soln 300 MG/5 ML UDC PO SCH (07:50)
[2022-02-21] MEDS: Potassium Chloride Elixir 20 MEQ/15 ML UDC PO SCH ×2 (07:50→17:00)
[2022-02-21] MEDS: metOLazone 5 MG TABLET PO SCH (07:51)
[2022-02-21] MEDS: Loratadine 10 MG TABLET PO SCH (07:51)
[2022-02-21] MEDS: Cholecalciferol (D-3) 1,000 UNIT (25MCG) TABLET PO SCH (07:51)
[2022-02-21] MEDS: *HR* Rivaroxaban 10 MG TABLET PO SCH (07:51)
[2022-02-21] MEDS: Aspirin 81 MG TAB.CHEW PO SCH (07:52)
[2022-02-21] MEDS: predniSONE 20 MG TABLET PO SCH (07:52)
[2022-02-21] MEDS: Multivit/Ca/Min/Fe/FA 1 TAB TABLET PO SCH (07:52)
[2022-02-21] MEDS: Fluticasone Propionate Nasal 50 MCG/SPRAY BOTTLE NS SCH (07:53)
[2022-02-21] MEDS: Nystatin POWDER 30 GM BOTTLE TP SCH ×2 (07:53→21:51)
[2022-02-21] MEDS: Psyllium 1 PACKET POWD.PACK PO SCH (07:53)
[2022-02-21] MEDS: Insulin DETEMIR 100 UNIT/ML X5UNITS SUBQ SCH ×2 (07:58→21:00)
[2022-02-21] MEDS ORDERED: Furosemide 40 MG TABLET PO SCH (09:00)
[2022-02-21] MEDS: carvediloL 6.25 MG TABLET PO SCH (17:00)
[2022-02-21] MEDS: rOPINIRole 0.25 MG TABLET PO SCH (21:49)
[2022-02-21] MEDS: clonazePAM 1 MG TABLET PO PRN (21:49)
[2022-02-21] MEDS: Melatonin 3 MG TABLET PO PRN (21:50)
[2022-02-22] MEDS: Ipratropium/Albuterol Neb 3 ML IH SCH ×4 (00:15→11:17)
[2022-02-22 01:53] LABS: Hemoglobin 8.1 g/dL (12.9-16.9); Mean Platelet Volume 8.9 fL (9.4-12.4)
[2022-02-22 01:54] LABS: Basophils # 0.1 K/mcL (0.0-0.2); Basophils % 0.8 %; Eosinophils # 0.3 K/mcL (0.0-0.6); Eosinophils % 1.9 %; Immature Granulocytes % 2.4 % (0-4); Lymphocytes # 2.1 K/mcL (0.6-4.6); Lymphocytes % 13.5 %; Mean Corpuscular HGB Conc 27.9 g/dL (31.6-35.5); Mean Corpuscular Hemoglobin 22.7 pg (28.0-33.3); Mean Corpuscular Volume 81.2 fL (83.0-100.0); Monocytes # 0.9 K/mcL (0.0-1.3); Monocytes % 5.7 %; Neutrophils # 11.9 K/mcL (1.6-8.9); Platelet Count 355 K/mcL (140-400); Red Blood Count 3.57 M/mcL (4.19-5.50); Red Cell Distribution Width 22.5 % (11.5-14.5); Segmented Neutrophils % 75.7 %; White Blood Count 15.7 K/mcL (4.3-11.1)
[2022-02-22 02:12] LABS: Calcium 9.5 mg/dL (8.6-10.3); Potassium 3.1 mEq/L (3.5-5.1)
[2022-02-22 02:30] LABS: Anisocytosis 2+ (Not Present); Hypochromasia Present (Not Present); Platelet Estimate Normal (Normal)
[2022-02-22] MEDS: Insulin LISPRO 300 UNITS/3 ML VIAL SUBQ SCH ×9 (03:52→20:33)
[2022-02-22] MEDS: Budesonide/Formoterol 160/4.5 1 PUFF INH IH SCH ×2 (07:47→20:13)
[2022-02-22] MEDS: Tiotropium 10 INH DOSE IH SCH (07:50)
[2022-02-22] MEDS: Potassium Chloride Elixir 20 MEQ/15 ML UDC PO SCH ×4 (09:18→20:13)
[2022-02-22] MEDS: Ferrous Sulfate Oral Soln 300 MG/5 ML UDC PO SCH (09:18)
[2022-02-22] MEDS: Psyllium 1 PACKET POWD.PACK PO SCH (09:19)
[2022-02-22] MEDS: carvediloL 6.25 MG TABLET PO SCH ×2 (09:20→17:43)
[2022-02-22] MEDS: Aspirin 81 MG TAB.CHEW PO SCH (09:20)
[2022-02-22] MEDS: predniSONE 20 MG TABLET PO SCH (09:20)
[2022-02-22] MEDS: *HR* Rivaroxaban 10 MG TABLET PO SCH (09:20)
[2022-02-22] MEDS: Cholecalciferol (D-3) 1,000 UNIT (25MCG) TABLET PO SCH (09:20)
[2022-02-22] MEDS: Loratadine 10 MG TABLET PO SCH (09:20)
[2022-02-22] MEDS: Multivit/Ca/Min/Fe/FA 1 TAB TABLET PO SCH (09:21)
[2022-02-22] MEDS: Fluticasone Propionate Nasal 50 MCG/SPRAY BOTTLE NS SCH (09:29)
[2022-02-22] MEDS: Insulin DETEMIR 100 UNIT/ML X5UNITS SUBQ SCH ×2 (10:24→20:33)
[2022-02-22] MEDS: Nystatin POWDER 30 GM BOTTLE TP SCH ×2 (11:43→21:00)
[2022-02-22] MEDS ORDERED: 0.9 % Sodium Chloride 250 ML IVC ONE (12:22)
[2022-02-22] MEDS ORDERED: 0.9 % Sodium Chloride 250 ML ONE (12:22)
[2022-02-22] MEDS ORDERED: predniSONE 10 MG TABLET PO ONE (13:06)
[2022-02-22] MEDS ORDERED: Albumin 25% 25gram/100mL 25 GM/100 ML IV.SOLN IVPB ONE (14:20)
[2022-02-22] MEDS: Ipratropium/Albuterol Neb 3 ML IH PRN (15:51)
[2022-02-22 16:30] LABS: Calcium 9.2 mg/dL (8.6-10.3); Magnesium 2.1 mg/dL (1.6-2.6); Potassium 4.6 mEq/L (3.5-5.1)
[2022-02-22] MEDS ORDERED: carvediloL 6.25 MG TABLET PO SCH (17:00)
[2022-02-22] MEDS: rOPINIRole 0.25 MG TABLET PO SCH (20:14)
[2022-02-22] MEDS: clonazePAM 1 MG TABLET PO PRN (20:35)
[2022-02-22] MEDS: Melatonin 3 MG TABLET PO PRN (20:35)
[2022-02-23 01:24] LABS: Eosinophils % 0.7 %; Hemoglobin 7.5 g/dL (12.9-16.9); Mean Corpuscular Hemoglobin 22.9 pg (28.0-33.3); Red Blood Count 3.28 M/mcL (4.19-5.50)
[2022-02-23 01:25] LABS: Basophils # 0.1 K/mcL (0.0-0.2); Basophils % 0.3 %; Eosinophils # 0.1 K/mcL (0.0-0.6); Hematocrit 26.5 % (37.5-50.1); Immature Granulocytes % 1.9 % (0-4); Lymphocytes # 1.4 K/mcL (0.6-4.6); Lymphocytes % 8.7 %; Mean Corpuscular HGB Conc 28.3 g/dL (31.6-35.5); Mean Corpuscular Volume 80.8 fL (83.0-100.0); Mean Platelet Volume 8.7 fL (9.4-12.4); Monocytes # 0.6 K/mcL (0.0-1.3); Monocytes % 3.7 %; Platelet Count 328 K/mcL (140-400); Red Cell Distribution Width 22.6 % (11.5-14.5); Segmented Neutrophils % 84.7 %
[2022-02-23 01:26] LABS: Neutrophils # 13.6 K/mcL (1.6-8.9)
[2022-02-23 01:40] LABS: BUN/Creatinine Ratio 49 (6-26); Blood Urea Nitrogen 62 mg/dL (8-23); Calcium 9.2 mg/dL (8.6-10.3); Carbon Dioxide 31 mEq/L (23-29); Chloride 97 mEq/L (98-107); Glucose 214 mg/dL (70-105); Osmolality,Calculated 310 (280-300); Sodium 138 mEq/L (136-145); eGFR For African Americans > 60 (> 60); eGFR For Non-African Americans 56 (> 60)
[2022-02-23] MEDS: Insulin LISPRO 300 UNITS/3 ML VIAL SUBQ SCH ×4 (07:32→10:56)
[2022-02-23] MEDS: Budesonide/Formoterol 160/4.5 1 PUFF INH IH SCH (07:39)
[2022-02-23] MEDS: Ipratropium/Albuterol Neb 3 ML IH PRN ×2 (07:42→11:59)
[2022-02-23] MEDS: Tiotropium 10 INH DOSE IH SCH (07:42)
[2022-02-23] MEDS: Nystatin POWDER 30 GM BOTTLE TP SCH (08:59)
[2022-02-23] MEDS: Fluticasone Propionate Nasal 50 MCG/SPRAY BOTTLE NS SCH (08:59)
[2022-02-23] MEDS: Psyllium 1 PACKET POWD.PACK PO SCH (08:59)
[2022-02-23] MEDS ORDERED: Insulin DETEMIR 100 UNIT/ML X5UNITS SUBQ SCH (09:00)
[2022-02-23] MEDS: Ferrous Sulfate Oral Soln 300 MG/5 ML UDC PO SCH (09:00)
[2022-02-23] MEDS: Aspirin 81 MG TAB.CHEW PO SCH (09:00)
[2022-02-23] MEDS ORDERED: predniSONE 20 MG TABLET PO SCH (09:00)
[2022-02-23] MEDS: Potassium Chloride Elixir 20 MEQ/15 ML UDC PO SCH (09:00)
[2022-02-23] MEDS: *HR* Rivaroxaban 10 MG TABLET PO SCH (09:00)
[2022-02-23] MEDS: Loratadine 10 MG TABLET PO SCH (09:01)
[2022-02-23] MEDS: Cholecalciferol (D-3) 1,000 UNIT (25MCG) TABLET PO SCH (09:01)
[2022-02-23] MEDS: carvediloL 6.25 MG TABLET PO SCH (09:01)
[2022-02-23] MEDS: Multivit/Ca/Min/Fe/FA 1 TAB TABLET PO SCH (09:01)
[2022-02-23 09:46] LABS: Hematocrit 27.6 % (37.5-50.1); Hemoglobin 7.7 g/dL (12.9-16.9)
[2022-02-23 10:54] VITALS: BP 158/100; PULSE 92; TEMP 97.3
[2022-02-23 12:01] VITALS: O2SAT 100
== END 2022-02-23 13:00 | disposition home health service (06) | DRG 291 ==
LOC: 2NENU 19:37 → EMEROOARM 19:37 → 2NENU 02-12 03:04 → SUATTDRO 02-12 12:20
PROVIDERS: ADMIT Internal Medicine; ATTEND Internal Medicine